=== PATIENT | female | born 1985 | race Caucasian/White ===

== ENCOUNTER 2023-02-09 11:58 | Outpatient (OUT) | payer OTHER, SELFPAY ==
[2023-02-09 15:55] LABS: Basophils Percent Auto 0.4 % (0.2-2.0); Eosinophils Absolute Auto 0.3 10^3/uL (0.0-0.7); Eosinophils Percent Auto 3.1 % (0.9-7.0); Hematocrit 41.8 % (36.0-48.0); Hemoglobin 13.7 g/dL (12.0-16.0); Immature Granulocytes Abs Auto 0.05 10^3/uL (0.00-0.03); Immature Granulocytes Pct Auto 0.6 % (0.0-0.5); Lymphocytes Absolute Auto 3.1 10^3/uL (1.2-3.8); Lymphocytes Percent Auto 33.9 % (20.5-60.0); Mean Corpuscular HGB Conc 32.8 g/dL (29.9-35.2); Mean Corpuscular Hemoglobin 28.8 pg (26.7-34.0); Mean Corpuscular Volume 87.8 fL (81.0-99.0); Mean Platelet Volume 9.4 fL (9.5-13.5); Monocytes Absolute Auto 0.6 10^3/uL (0.3-0.8); Monocytes Percent Auto 6.9 % (1.7-12.0); Neutrophils Percent Auto 55.1 % (43.0-75.0); Platelet Count 391 10^3/uL (150-450); Red Blood Count 4.76 10^6/uL (4.20-5.40); Red Cell Distribution Width 13.1 % (11.0-15.0)
[2023-02-09 16:11] LABS: Partial Thromboplastin Time 27.7 sec (22.3-36.2); Prothrombin Time 9.3 sec (9.0-11.6)
[2023-02-09 16:14] LABS: INR <0.93
[2023-02-09 21:01] LABS: Anion Gap 11.9; BUN Creatinine Ratio 16.4; Carbon Dioxide 26.3 mmol/L (21.0-32.0); Chloride 102 mmol/L (98-107); Estimated GFR (African America >60 (>=60); Estimated GFR (Non-African Ame >60 (>=60); Glucose 70 mg/dL (74-106); Potassium 4.2 mmol/L (3.5-5.1); Sodium 136 mmol/L (136-145)
[2023-02-10 10:48] LABS: Alanine Aminotransferase 37 U/L (14-59); Albumin Globulin Ratio 0.8; Albumin Level 3.3 g/dL (3.4-5.0); Alkaline Phosphatase 105 U/L (46-116); Aspartate Amino Transferase 19 U/L (15-37); Bilirubin Direct <0.1 mg/dL (0.0-0.2); Bilirubin Total 0.1 mg/dL (0.2-1.0); Globulin 3.9 g/dL; Total Protein 7.2 g/dL (6.4-8.2)
== END 2023-02-09 11:59 ==
LOC: PST 11:59
PROVIDERS: Obstetrics & Gynecology
DX: Z01.812 Encounter for preprocedural laboratory examination (principal); N92.1 Excessive and frequent menstruation with irregular cycle; R10.2 Pelvic and perineal pain; N94.6 Dysmenorrhea, unspecified; N93.9 Abnormal uterine and vaginal bleeding, unspecified
CPT/HCPCS: 36415; 80048; 80076; 85025; 85610; 85730

== ENCOUNTER 2023-02-14 11:39 | Outpatient (OUT) | payer OTHER, SELFPAY | END 2023-02-14 11:40 | disposition home or self-care (01) | LOC: LAB 03-09 11:40 | PROVIDERS: Visit Provider Obstetrics & Gynecology | DX: Z01.812 Encounter for preprocedural laboratory examination (principal); N92.1 Excessive and frequent menstruation with irregular cycle; N93.9 Abnormal uterine and vaginal bleeding, unspecified; R10.2 Pelvic and perineal pain; N94.6 Dysmenorrhea, unspecified | CPT/HCPCS: 36415; 86850; 86900; 86901 ==

== ENCOUNTER 2023-02-17 10:45 | Day surgery (SDC) | payer OTHER, SELFPAY ==
[2023-02-09 12:41] VITALS: BP 116/79; PULSE 80; RESP 18; TEMP 36.3; O2SAT 98; BMI 38.9
[2023-02-17] VITALS (11 sets, daily range): BP systolic 126–148; BP diastolic 78–95; PULSE 81–115; RESP 16–24; TEMP 36.2–37.2; O2SAT 92–100; BMI 39.0; BMI 40.9
[2023-02-17 11:18] LABS: Basophils Absolute Auto 0.1 10^3/uL (0.0-0.1); Basophils Percent Auto 0.5 % (0.2-2.0); Eosinophils Absolute Auto 0.2 10^3/uL (0.0-0.7); Hematocrit 40.5 % (36.0-48.0); Hemoglobin 13.3 g/dL (12.0-16.0); Immature Granulocytes Abs Auto 0.04 10^3/uL (0.00-0.03); Immature Granulocytes Pct Auto 0.4 % (0.0-0.5); Lymphocytes Absolute Auto 2.6 10^3/uL (1.2-3.8); Lymphocytes Percent Auto 26.2 % (20.5-60.0); Mean Corpuscular HGB Conc 32.8 g/dL (29.9-35.2); Mean Corpuscular Hemoglobin 28.8 pg (26.7-34.0); Mean Corpuscular Volume 87.7 fL (81.0-99.0); Monocytes Absolute Auto 0.6 10^3/uL (0.3-0.8); Monocytes Percent Auto 5.6 % (1.7-12.0); Neutrophils Absolute Auto 6.4 10^3/uL (1.4-6.5); Neutrophils Percent Auto 65.3 % (43.0-75.0); Platelet Count 373 10^3/uL (150-450); Red Blood Count 4.62 10^6/uL (4.20-5.40); Red Cell Distribution Width 13.1 % (11.0-15.0); White Blood Count 9.9 10^3/uL (4.0-11.0)
[2023-02-17] MEDS: LACTATED RINGER'S SOLUTION 1,000 ML 50 ML IV ×2 (11:28→14:35)
[2023-02-17 11:51] LABS: HCG Quantitative 3 mIU/mL
[2023-02-17] MEDS: CEFAZOLIN SODIUM/DEXTROSE,ISO 2 GM/50 ML PIGGYBACK IV ×2 (12:42→21:48)
--- NOTE | 2023-02-17 16:10 | PC.NURSE ---
RETROFILLED FOR 200ML STERIL WATER INTRAOPERATIVELY
[2023-02-17] MEDS: MEPERIDINE HCL/PF 25 MG/ML VIAL IVP (16:47)
[2023-02-17] MEDS: PROMETHAZINE HCL 25 MG/ML VIAL IV (16:52)
--- NOTE | 2023-02-17 17:15 | PC.NURSE ---
peripad and chux with moderate amount serosanguinous drainage; very restless and states she needs to urinate; placed on bedpan; dressings x4 intact to abdomen with left lateral dressing having scant bloody drainage; area marked;other 3 dressings dry
--- NOTE | 2023-02-17 17:29 | PC.NURSE ---
removed from bedpan with scant bloody urine; clean chux and pad applied; no change in dressing assessment
--- NOTE | 2023-02-17 17:33 | PC.NURSE ---
c/o nausea; no emesis; medicated with Phenergan IV as ordered
--- NOTE | 2023-02-17 18:04 | PC.NURSE ---
peripad dry; no change in initial assessment of 4 abdominal dressings
--- NOTE | 2023-02-17 18:08 | PC.NURSE ---
peripad dry; no change in assessment of 4 dressings on abdomen; resting with even unlabored respirations
--- NOTE | 2023-02-17 18:13 | PC.NURSE ---
4 dressings to abdomen intact with no change in drainage assessment from initial ; peripad dry
[2023-02-17] MEDS: ONDANSETRON PF 4 MG/2 ML VIAL IV (19:40)
[2023-02-17] MEDS: KETOROLAC TROMETHAMINE 30 MG/ML VIAL IVP (22:41)
[2023-02-18 05:00] VITALS: BP 110/72; PULSE 95; RESP 18; TEMP 36.6; O2SAT 95
[2023-02-18 05:06] LABS: Hematocrit 37.1 % (36.0-48.0); Hemoglobin 12.3 g/dL (12.0-16.0); Mean Corpuscular HGB Conc 33.2 g/dL (29.9-35.2); Mean Corpuscular Hemoglobin 29.3 pg (26.7-34.0); Mean Corpuscular Volume 88.3 fL (81.0-99.0); Mean Platelet Volume 9.3 fL (9.5-13.5); Platelet Count 349 10^3/uL (150-450); Red Cell Distribution Width 13.2 % (11.0-15.0); White Blood Count 18.4 10^3/uL (4.0-11.0)
[2023-02-18 05:22] LABS: Estimated GFR (African America >60 (>=60); Estimated GFR (Non-African Ame >60 (>=60)
[2023-02-18] MEDS: CEFAZOLIN SODIUM/DEXTROSE,ISO 2 GM/50 ML PIGGYBACK IV (05:40)
--- NOTE | 2023-02-18 06:12 | PC.NURSE ---
peripad applied; abdominal dressing assessment unchanged; no c/o pain or nausea and vomiting; IV SITE PATENT
--- NOTE | 2023-02-18 06:17 | PC.NURSE ---
PERIPAD DRY; 4 ABDOMINAL SURGICAL DRESSINGS INTACT WITH SCANT BLOODY DRAINAGE ON LEFT LATERAL DRESSINGS; OTHER 3 DRESSINGS DRY; IV SITE WITHOUT REDNESS OR EDEMA
[2023-02-18] MEDS: ONDANSETRON PF 4 MG/2 ML VIAL IV (06:43)
[2023-02-18 12:16] LABS: Basophils Percent Auto 0.2 % (0.2-2.0); Eosinophils Percent Auto 0.2 % (0.9-7.0); Hematocrit 37.4 % (36.0-48.0); Hemoglobin 12.3 g/dL (12.0-16.0); Immature Granulocytes Abs Auto 0.07 10^3/uL (0.00-0.03); Immature Granulocytes Pct Auto 0.4 % (0.0-0.5); Lymphocytes Absolute Auto 3.3 10^3/uL (1.2-3.8); Lymphocytes Percent Auto 20.2 % (20.5-60.0); Mean Corpuscular HGB Conc 32.9 g/dL (29.9-35.2); Mean Corpuscular Hemoglobin 28.9 pg (26.7-34.0); Mean Corpuscular Volume 87.8 fL (81.0-99.0); Monocytes Percent Auto 6.4 % (1.7-12.0); Neutrophils Absolute Auto 11.8 10^3/uL (1.4-6.5); Neutrophils Percent Auto 72.6 % (43.0-75.0); Platelet Count 384 10^3/uL (150-450); Red Blood Count 4.26 10^6/uL (4.20-5.40); Red Cell Distribution Width 13.1 % (11.0-15.0); White Blood Count 16.2 10^3/uL (4.0-11.0)
--- NOTE | 2023-04-01 09:46 | PM.ONB ---
Brief Operative Note Date of procedure: 02/17/23 Pre-op diagnosis: aub, pelvic pain, dysmenorrhea, dyspareunia Post-op diagnosis: same Procedure: NAME OF PROCEDURE: ? Robotic assisted laparoscopic hysterectomy with cystoscopy, bilateral salpingectomy PROCEDURE:? The patient was taken back to the operating room, where she was prepped and draped in the normal sterile fashion after being placed in the dorsal lithotomy position.? Patient?s anesthesia was found to be adequate.? Surgical timeout was performed using two patient identifiers.? SCDs were on and in place.? Two grams of Ancef were given prior to the surgery.? Sterile Navarrete catheter was inserted.? Standard size VCare was secured to the uterine cervix and the surgeon changed gloves.? Attention then was turned to the patient's abdomen, where a supraumbilical incision was then made.? Two S retractors were used to identify the patient?s fascia.? The fascia was then tented up using Brisa clamps and the patient?s fascia was incised sharply.? Patient?s abdomen was identified and entered bluntly.? The patient had the trocar placed and a pneumoperitoneum was obtained.? Approximately 4 liters of CO2 gas was used.? The camera was then placed through the trocar.? At this time, two robot trocars were placed in the patient?s left and right side, two hand widths from the midline, and this was placed under direct visualization.? The patient?s tube on the right side was tented up and the vessel sealer was then used to come across the mesosalpinx, and this was carried down to the uterine ovarian ligament.? The vessel sealer was carried down serially to the broad ligament, to the area of the bladder flap, which was then created anteriorly, and the uterine arteries were skeletonized and sealed using the vessel sealer.? The colpotomy was made using the monopolar cautery on cut, and this was carried circumferentially, posteriorly to anteriorly, until the uterus was amputated.? The specimen was then removed intact through the vagina, without difficulty.? The vagina was then closed using two running V-Loc in a non-lock fashion.? The robot was undocked.? The abdomen was desufflated.? The skin defects were closed using 4-0 Vicryl.? Please note, the fascia was closed using 0 Vicryl.? Sponge, lap and needle counts were correct x2.? Patient was taken to recovery room in stable condition.? The patient was awakened by Anesthesia first.? Patient tolerated procedure well.??Please note left ovarian cystectomy was performed using the vessel sealer Anesthesia: DALTON Surgeon: Charles Marrero Shearing Machine Operator: Mehreen Castro Estimated blood loss (mL): 50 Pathology: none sent Condition: stable Disposition: PACU
== END 2023-02-18 13:55 | disposition home or self-care (01) ==
LOC: SURGOUT 11:34 → MS 18:04
PROVIDERS: Visit Provider Obstetrics & Gynecology
PROC: (CPT 840; principal; 2023-02-17 12:00)
DX: N93.9 Abnormal uterine and vaginal bleeding, unspecified (principal); N92.1 Excessive and frequent menstruation with irregular cycle; R10.2 Pelvic and perineal pain; N94.6 Dysmenorrhea, unspecified; N94.10 Unspecified dyspareunia
CPT/HCPCS: 58571; 36415; 82565; 84520; 84702; 85025; 85027; 86850; 86900; 86901; 88307; 94761; 96374; 96375; J1170

== ENCOUNTER 2023-02-26 11:17 | Emergency (ER) | payer OTHER, SELFPAY ==
[2023-02-26 11:23] VITALS: BP 141/105; PULSE 96; RESP 20; TEMP 36.8; O2SAT 96; BMI 39.1
--- NOTE | 2023-02-26 11:52 | CT_ITS ---
The [address] [address] Patient Name: COY SAMUEL MRN: [id number] date: 1985 Sex: F Assigned Patient Location: ER Current Patient Location: Accession/Order Number: [id number] Exam Date: 02/26/2023 12:22 Report Date: 02/26/2023 13:32 At the request of: GLENN JIN Procedure: CT abdomen pelvis w con EXAM: CT abdomen pelvis w con HISTORY: Pain, hysterectomy nine days ago. Nausea, vomiting, and diarrhea. COMPARISON: 10/21/2022. TECHNIQUE: Axial CT imaging was performed through the abdomen and pelvis with intravenous contrast. Multiplanar reformats were performed. Dose reduction techniques were achieved by using automated exposure control and/or adjustment of mA and/or kV according to patient size and/or use of iterative reconstruction technique. FINDINGS: Lung bases: Lung bases are clear. No pleural effusion. GI upper: Unremarkable. Liver: Hepatomegaly with steatosis. Normal contour. The right hepatic lobe measures 19.4 cm in greatest craniocaudal dimension. Gallbladder: No significant abnormality. No cholelithiasis. Biliary system: No intra or extrahepatic biliary ductal dilatation. Spleen: Normal size. Pancreas: Unremarkable. Adrenal glands: Normal adrenal glands. Kidneys/ureters: Normal contours. No hydronephrosis or ureterolithiasis. No nephrolithiasis. Vessels: No aneurysm. Lymph Nodes: No lymphadenopathy. Small bowel: No wall thickening or dilatation. Colon: No wall thickening or dilatation. Appendix: Appendectomy. Peritoneal cavity: No free fluid or peritoneum. Lower : Hysterectomy. Minimal stranding within the hysterectomy bed is likely postsurgical in nature. No evidence of organized fluid collection within the surgical bed. Bones: No acute bony abnormality. Soft tissues: No acute finding. Small, fat-containing periumbilical hernia, unchanged. Additional findings: None. IMPRESSION: 1. Minimal stranding within the hysterectomy bed without evidence of fluid collection, compatible with postsurgical change. No postsurgical complication is evident. 2. Hepatomegaly with steatosis. Electronically authenticated by: BE SINCLAIR Date: 02/26/2023 13:32
--- NOTE | 2023-02-26 11:55 | ED.ABDPAIN1 ---
HPI - Abdominal Pain General Chief Complaint: Abdominal Pain Stated Complaint: EXTREME ABDOMINAL PAIN/RECENT HYSTERECTOMY Time Seen by Provider: 02/26/23 11:25 History of Present Illness HPI narrative: 37-year-old female presents for abdominal pain. It's generalized. She is postop day #9 from hysterectomy. She's had these symptoms for several days and it seems to be getting worse. She feels like her bowels moving things through. She'll eat minimal food and she'll feel for the next day she'll vomit up that same food she ate the previous day. No fever. Related Data Home Medications Medication Instructions Recorded Confirmed albuterol sulfate 2.5 mg/3 mL 2.5 mg inhalation Q8H PRN 02/09/23 02/09/23 (0.083 %) solution for nebulization bronchospasm hydroxyzine pamoate 50 mg capsule 50 mg PO BID 02/09/23 02/17/23 budesonide-formoterol HFA 160 2 puff inhalation Q12H 02/17/23 02/17/23 mcg-4.5 mcg/actuation aerosol inhaler (Symbicort) ibuprofen 800 mg tablet 800 mg PO Q8H PRN fever or pain 02/26/23 02/26/23 metronidazole 500 mg tablet 500 mg PO Q12H 02/26/23 02/26/23 oxycodone-acetaminophen 5 mg-325 1 tab PO Q6H PRN pain 02/26/23 02/26/23 mg tablet Previous Rx's Medication Instructions Recorded metoclopramide HCl 10 mg tablet 10 mg PO Q6H PRN nausea and 02/26/23 (Reglan) vomiting #14 tabs ondansetron HCl 4 mg tablet 4 mg PO DAILY PRN nausea and 02/26/23 vomiting 5 days #20 tabs Allergies Allergy/AdvReac Type Severity Reaction Status Date / Time fentanyl Allergy hallucinati Verified 02/09/23 12:38 on Review of Systems ROS Narrative A ten point review of systems is negative except as noted above. [facility] Medical History (Updated 02/26/23 @ 13:51 by Barry Moyer MD) Surgical History (Updated 02/09/23 @ 12:49 by Sherita Jean NP) Family History (Updated 02/09/23 @ 12:44 by Sherita Jean NP) Other Family history of COPD (chronic obstructive pulmonary disease) Family history of DVT Family history of breast cancer Family history of heart disease Family history of hypertension Family history of myocardial infarction Family history of ovarian cancer Family history of stroke Family history of uterine cancer Social History (Updated 02/09/23 @ 12:41 by Sherita Jean NP) Within the past year, how often did you have a drink containing alcohol: monthly or less Smoking status: Light tobacco smoker Non-prescribed substance use: cannabis (any form) Previous occupational history: [employer] Highest level of school completed/degree received: high school graduate Gender Identity: female Exam Narrative Exam Narrative: Nurses note and vital signs reviewed and patient is not hypoxic. General: The patient appears in no apparent respiratory distress. Patient is resting comfortably on cart. Skin: Warm, dry, no pallor noted. There is no rash noted. Head: Normocephalic, atraumatic Eye: Normal conjunctiva, no drainage Ears, Nose, Mouth, and Throat: oral mucosa is moist. Nares patent. Cardiovascular: Regular Rate and Rhythm Respiratory: Patient is in no distress, no accessory muscle use, lungs are clear to auscultation, no wheezing, rales or rhonchi Back: non-tender GI: surgical wounds have Steri-Strips. They're healing well. No surrounding erythema or dehiscence. Mild diffuse tenderness present. Musculoskeletal: The patient has no evidence of calf tenderness, no pitting edema, symmetrical pulses noted bilaterally Neurological: A&O, normal speech Psychiatric: Cooperative Constitutional Vital Signs - 24 hr 02/26/23 11:23 Temperature 98.2 F Pulse Rate [Monitor] 96 H Respiratory Rate 20 Blood Pressure [Right Arm] 141/105 H Pulse Oximetry 96 Oxygen Delivery Method Room Air Course Vital Signs Vital signs: Vital Signs Temperature 98.2 F 02/26/23 11:23 Pulse Rate 96 H 02/26/23 11:23 Respiratory Rate 20 02/26/23 11:23 Blood Pressure 141/105 H 02/26/23 11:23 Pulse Oximetry 96 02/26/23 11:23 Oxygen Delivery Method Room Air 02/26/23 11:23 Temperature 98.2 F 02/26/23 11:23 Pulse Rate 96 H 02/26/23 11:23 Respiratory Rate 20 02/26/23 11:23 Blood Pressure 141/105 H 02/26/23 11:23 Pulse Oximetry 96 02/26/23 11:23 Oxygen Delivery Method Room Air 02/26/23 11:23 MDM - Abdominal Pain MDM Narrative Medical decision making narrative: the patient's workup including CAT scan is negative. She is prescribed Reglan and Zofran and she'll follow-up with her doctor if needed. No evidence of bowel obstruction or ileus. Treatment diagnosis and follow-up were discussed with the patient. Differential Diagnosis Differential diagnosis: Likely abdominal pain, constipation, diverticulitis, pancreatitis and small bowel obstruction Lab Data Attestation: I reviewed the patient's lab results. Labs: Lab Results 02/26/23 Range/Units 12:02 WBC 10.1 (4.0-11.0) 10^3/uL RBC 4.39 (4.20-5.40) 10^6/uL Hgb 12.9 (12.0-16.0) g/dL Hct 38.8 (36.0-48.0) % MCV 88.4 (81.0-99.0) fL MCH 29.4 (26.7-34.0) pg MCHC 33.2 (29.9-35.2) g/dL RDW 13.1 (11.0-15.0) % Plt Count 378 (150-450) 10^3/uL MPV 9.4 L (9.5-13.5) fL Neut % (Auto) 64.8 (43.0-75.0) % Lymph % (Auto) 26.6 (20.5-60.0) % Sharp % (Auto) 5.4 (1.7-12.0) % Eos % (Auto) 2.4 (0.9-7.0) % Baso % (Auto) 0.5 (0.2-2.0) % Neut # (Auto) 6.6 H (1.4-6.5) 10^3/uL Lymph # (Auto) 2.7 (1.2-3.8) 10^3/uL Sharp # (Auto) 0.6 (0.3-0.8) 10^3/uL Eos # (Auto) 0.2 (0.0-0.7) 10^3/uL Baso # (Auto) 0.1 (0.0-0.1) 10^3/uL Abs Immat Gran (auto) 0.03 (0.00-0.03) 10^3/uL Imm/Tot Granulo (auto) 0.3 (0.0-0.5) % Sodium 138 (136-145) mmol/L Potassium 4.1 (3.5-5.1) mmol/L Chloride 102 (98-107) mmol/L Carbon Dioxide 27.1 (21.0-32.0) mmol/L Anion Gap 13.0 BUN 9.0 (7.0-18.0) mg/dL Creatinine 0.62 (0.55-1.02) mg/dL Est GFR ( Amer) >60 (>=60) Est GFR (Non-Af Amer) >60 (>=60) BUN/Creatinine Ratio 14.5 Glucose 95 (74-106) mg/dL Calcium 9.0 (8.5-10.1) mg/dL Total Bilirubin 0.2 (0.2-1.0) mg/dL AST 13 L (15-37) U/L ALT 28 (14-59) U/L Alkaline Phosphatase 87 (46-116) U/L Total Protein 7.3 (6.4-8.2) g/dL Albumin 3.2 L (3.4-5.0) g/dL Globulin 4.1 g/dL Albumin/Globulin Ratio 0.8 Lipase 48.0 L (73.0-393.0) U/L Urine Color Lt. yellow (YELLOW) Urine Clarity Clear (CLEAR) Urine pH 7.5 (5.0-9.0) Ur Specific Adams 1.015 (1.005-1.025) Urine Protein Negative (NEG/TRACE) mg/dL Urine Glucose (UA) Negative (NEGATIVE) mg/dL Urine Ketones Negative (NEGATIVE) mg/dL Urine Occult Blood Negative (NEGATIVE) Urine Nitrite Negative (NEGATIVE) Urine Bilirubin Negative (NEGATIVE) Urine Urobilinogen 0.2 (0.2-1.0) EU/dL Ur Leukocyte Esterase Negative (NEGATIVE) Discharge Plan Discharge Chief Complaint: Abdominal Pain Clinical Impression: Abdominal pain Patient Disposition: Home, Self-Care Time of Disposition Decision: 13:49 Mode of Transportation: Private Vehicle Prescriptions / Home Meds: New metoclopramide HCl [Reglan] 10 mg tablet 10 mg PO Q6H PRN (Reason: nausea and vomiting) Qty: 14 0RF ondansetron HCl 4 mg tablet 4 mg PO DAILY PRN (Reason: nausea and vomiting) 5 Days Qty: 20 0RF No Action hydroxyzine pamoate 50 mg capsule 50 mg PO BID albuterol sulfate 2.5 mg /3 mL (0.083 %) solution for nebulization 2.5 mg inhalation Q8H PRN (Reason: bronchospasm) budesonide-formoterol [Symbicort] 160-4.5 mcg/actuation HFA aerosol inhaler 2 puff INHALATION Q12H oxycodone-acetaminophen 5-325 mg tablet 1 tab PO Q6H PRN (Reason: pain) metronidazole 500 mg tablet 500 mg PO Q12H ibuprofen 800 mg tablet 800 mg PO Q8H PRN (Reason: fever or pain) Instructions: Abdominal Pain (ED) Stand Alone Forms: Portal Instructions Referrals: Physician,Non-Staff, MD [Primary Care Provider] - 1 week
[2023-02-26] MEDS: ONDANSETRON PF 4 MG/2 ML VIAL IV (12:10)
[2023-02-26] MEDS: 0.9 % SODIUM CHLORIDE 1,000 ML 100 ML IV (12:10)
[2023-02-26 12:46] LABS: Basophils Absolute Auto 0.1 10^3/uL (0.0-0.1); Basophils Percent Auto 0.5 % (0.2-2.0); Bilirubin Urine NEGATIVE (NEGATIVE); Blood Urine NEGATIVE (NEGATIVE); Clarity Urine CLEAR (CLEAR); Color Urine LT. YELLOW (YELLOW); Eosinophils Absolute Auto 0.2 10^3/uL (0.0-0.7); Eosinophils Percent Auto 2.4 % (0.9-7.0); Glucose Urine UA NEGATIVE (NEGATIVE); Hematocrit 38.8 % (36.0-48.0); Hemoglobin 12.9 g/dL (12.0-16.0); Immature Granulocytes Abs Auto 0.03 10^3/uL (0.00-0.03); Immature Granulocytes Pct Auto 0.3 % (0.0-0.5); Ketones Urine NEGATIVE (NEGATIVE); Leukocyte Esterase Urine NEGATIVE (NEGATIVE); Lymphocytes Absolute Auto 2.7 10^3/uL (1.2-3.8); Lymphocytes Percent Auto 26.6 % (20.5-60.0); Mean Corpuscular HGB Conc 33.2 g/dL (29.9-35.2); Mean Corpuscular Hemoglobin 29.4 pg (26.7-34.0); Mean Corpuscular Volume 88.4 fL (81.0-99.0); Mean Platelet Volume 9.4 fL (9.5-13.5); Monocytes Absolute Auto 0.6 10^3/uL (0.3-0.8); Monocytes Percent Auto 5.4 % (1.7-12.0); Neutrophils Absolute Auto 6.6 10^3/uL (1.4-6.5); Neutrophils Percent Auto 64.8 % (43.0-75.0); Nitrite Urine NEGATIVE (NEGATIVE); Platelet Count 378 10^3/uL (150-450); Protein Urine NEGATIVE (NEG/TRACE); Red Blood Count 4.39 10^6/uL (4.20-5.40); Red Cell Distribution Width 13.1 % (11.0-15.0); Specific Gravity Urine 1.015 (1.005-1.025); Urobilinogen Urine 0.2 EU/dL (0.2-1.0); White Blood Count 10.1 10^3/uL (4.0-11.0); pH Urine 7.5 (5.0-9.0)
[2023-02-26 12:48] LABS: Urine Microscopic Indicated NO
[2023-02-26 13:06] LABS: Alanine Aminotransferase 28 U/L (14-59); Albumin Globulin Ratio 0.8; Albumin Level 3.2 g/dL (3.4-5.0); Alkaline Phosphatase 87 U/L (46-116); Aspartate Amino Transferase 13 U/L (15-37); BUN Creatinine Ratio 14.5; Bilirubin Total 0.2 mg/dL (0.2-1.0); Carbon Dioxide 27.1 mmol/L (21.0-32.0); Chloride 102 mmol/L (98-107); Estimated GFR (African America >60 (>=60); Estimated GFR (Non-African Ame >60 (>=60); Globulin 4.1 g/dL; Glucose 95 mg/dL (74-106); Potassium 4.1 mmol/L (3.5-5.1); Sodium 138 mmol/L (136-145); Total Protein 7.3 g/dL (6.4-8.2)
[2023-02-26] MEDS: KETOROLAC TROMETHAMINE 30 MG/ML VIAL IVP (13:28)
== END 2023-02-26 14:02 | disposition home or self-care (01) ==
PROVIDERS: Emergency Provider Emergency Medicine
DX: R10.9 Unspecified abdominal pain (principal); Z90.710 Acquired absence of both cervix and uterus; Z79.899 Other long term (current) drug therapy; F17.210 Nicotine dependence, cigarettes, uncomplicated; F12.90 Cannabis use, unspecified, uncomplicated
CPT/HCPCS: 36415; 74177; 80053; 81003; 83690; 85025; 96361; 96374; 96375; 99284; Q9967

== ENCOUNTER 2023-05-12 14:40 | Emergency (ER) | payer SELFPAY ==
[2023-05-12 14:46] VITALS: BP 134/113; PULSE 95; RESP 20; TEMP 36.7; O2SAT 99; BMI 36.9
--- NOTE | 2023-05-12 14:54 | ECG_ITS ---
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
--- NOTE | 2023-05-12 14:59 | ED_ITS ---
Documented by User: PERCY Alfaro 05/12/23 17:04 HPI - Chest Pain General Chief Complaint: Chest Pain Stated Complaint: SEVERE HEART/CHEST PAIN Time Seen by Provider: 05/12/23 14:54 History of Present Illness HPI narrative: patient is a 37-year-old female who presents to the emergency department for the evaluation of sternal chest pain that began at 7 AM, approximately eight hours ago. She states the pain radiates to her left arm. She states the pain does come and go. She feels associated lightheadedness. She has had no fevers, chills. She states she has chronic obstructive pulmonary disease and uses an inhaler at home, she has a chronic cough as a result but has had no other significant upper respiratory symptoms. She denies abdominal pain, nausea, vomiting. She has had no unilateral extremity swelling. She had a hysterectomy three months ago. She states she quit smoking one month ago. she denies any history of other heart or lung problems, no history of diabetes. She does not take any medications at home except her inhaler. Risk Factors Coronary artery disease risk factors: smoking history Pulmonary embolism risk factors: morbid obesity Related Data Home Medications Medication Instructions Recorded Confirmed budesonide-formoterol HFA 160 2 puff inhalation Q12H 02/17/23 05/12/23 mcg-4.5 mcg/actuation aerosol inhaler (Symbicort) Previous Rx's Medication Instructions Recorded methocarbamol 750 mg tablet 750 mg PO TID PRN pain #20 tabs 05/12/23 sucralfate 1 gram tablet (Carafate) 1 g PO Q6H PRN abdominal pain #12 05/12/23 tabs Allergies Allergy/AdvReac Type Severity Reaction Status Date / Time fentanyl Allergy hallucinati Verified 02/09/23 12:38 on Review of Systems ROS Constitutional Denies: fever or chills Ears, nose, mouth, and throat Denies: throat pain Cardiovascular Reports: chest pain Respiratory Reports: cough; Denies: shortness of breath Gastrointestinal Denies: nausea or vomiting Musculoskeletal Denies: back pain Integumentary/Breast Denies: rash Neurological Denies: headache Endocrine Denies: excessive urination Allergic/Immunologic Denies: hives PFSH [facility] Medical History (Updated 05/12/23 @ 17:04 by PERCY Alfaro) Surgical History (Updated 02/09/23 @ 12:49 by Sherita Jean NP) Family History (Updated 02/09/23 @ 12:44 by Sherita Jean NP) Other Family history of COPD (chronic obstructive pulmonary disease) Family history of DVT Family history of breast cancer Family history of heart disease Family history of hypertension Family history of myocardial infarction Family history of ovarian cancer Family history of stroke Family history of uterine cancer Social History Within the past year, how often did you have a drink containing alcohol: monthly or less Smoking status: Former smoker Non-prescribed substance use: cannabis (any form) Previous occupational history: [employer] Highest level of school completed/degree received: high school graduate Gender Identity: female Exam Narrative Exam Narrative: Gen.: Awake, alert, in no distress Head: Normocephalic, atraumatic ENT: Moist mucous membranes Respiratory: No respiratory distress, lungs clear bilaterally Cardio: Regular rate and rhythm Gastrointestinal: Abdomen is soft, nondistended and nontender to palpation Extremities: Moves extremities equally, pedal edema Psych: Normal mood and affect Neuro: No focal neuro deficit Skin: Warm, dry, intact Constitutional Vital Signs, click to edit/add: Last Vital Signs Temp 98.1 F 05/12/23 14:46 Pulse 75 05/12/23 17:18 Resp 16 05/12/23 17:18 BP 117/78 05/12/23 17:18 Pulse Ox 97 05/12/23 17:18 O2 Del Method Room Air 05/12/23 17:18 Course Vital Signs Vital signs: Vital Signs Temperature 98.1 F 05/12/23 14:46 Pulse Rate 95 H 05/12/23 14:46 Respiratory Rate 20 05/12/23 14:46 Blood Pressure 134/113 H 05/12/23 14:46 Pulse Oximetry 99 05/12/23 14:46 Oxygen Delivery Method Room Air 05/12/23 14:46 Temperature 98.1 F 05/12/23 14:46 Pulse Rate 75 05/12/23 17:18 Respiratory Rate 16 05/12/23 17:18 Blood Pressure 117/78 05/12/23 17:18 Pulse Oximetry 97 05/12/23 17:18 Oxygen Delivery Method Room Air 05/12/23 17:18 MDM - Chest Pain MDM Narrative Medical decision making narrative: patient was treated with aspirin, morphine, Zofran, IV fluids. Her lab studies including d-dimer, troponin and BNP are within normal limits. Pain has been present since 7 AM this morning. Patient is visibly anxious although she is confident that her symptoms do not represent anxiety. She was given an additional gastrointestinal cocktail for comfort. Her heart score is a three for risk factors of clinical history, recent smoking, morbid obesity and unknown family history. She is reevaluated by attending physician prior to discharge, chest x-rays unremarkable and vital signs are stable. She will be discharged home with Carafate, muscle relaxant area and follow-up with PCP and return to the Emergency Room if symptoms change or worsen. Medical Records Data Attestation: I reviewed the patient's medical records. Lab Data Attestation: I reviewed the patient's lab results. Labs: Lab Results 05/12/23 Range/Units 15:00 WBC 10.4 (4.0-11.0) 10^3/uL RBC 4.28 (4.20-5.40) 10^6/uL Hgb 12.4 (12.0-16.0) g/dL Hct 38.0 (36.0-48.0) % MCV 88.8 (81.0-99.0) fL MCH 29.0 (26.7-34.0) pg MCHC 32.6 (29.9-35.2) g/dL RDW 12.6 (11.0-15.0) % Plt Count 345 (150-450) 10^3/uL MPV 9.5 (9.5-13.5) fL Neut % (Auto) 61.5 (43.0-75.0) % Lymph % (Auto) 29.0 (20.5-60.0) % Warrick % (Auto) 6.3 (1.7-12.0) % Eos % (Auto) 2.2 (0.9-7.0) % Baso % (Auto) 0.6 (0.2-2.0) % Neut # (Auto) 6.4 (1.4-6.5) 10^3/uL Lymph # (Auto) 3.0 (1.2-3.8) 10^3/uL Warrick # (Auto) 0.7 (0.3-0.8) 10^3/uL Eos # (Auto) 0.2 (0.0-0.7) 10^3/uL Baso # (Auto) 0.1 (0.0-0.1) 10^3/uL Abs Immat Gran (auto) 0.04 H (0.00-0.03) 10^3/uL Imm/Tot Granulo (auto) 0.4 (0.0-0.5) % PT 9.7 (9.0-11.6) sec INR <0.93 APTT 27.5 (22.3-36.2) sec D-Dimer 0.48 (<=0.59) mg/L FEU Sodium 138 (136-145) mmol/L Potassium 3.5 (3.5-5.1) mmol/L Chloride 105 (98-107) mmol/L Carbon Dioxide 27.7 (21.0-32.0) mmol/L Anion Gap 8.8 BUN 9.0 (7.0-18.0) mg/dL Creatinine 0.76 (0.55-1.02) mg/dL Est GFR ( Amer) >60 (>=60) Est GFR (Non-Af Amer) >60 (>=60) BUN/Creatinine Ratio 11.8 Glucose 108 H (74-106) mg/dL Calcium 8.4 L (8.5-10.1) mg/dL Total Bilirubin 0.1 L (0.2-1.0) mg/dL AST 15 (15-37) U/L ALT 31 (14-59) U/L Alkaline Phosphatase 79 (46-116) U/L Troponin I High Sens 4.5 (4.0-51.3) pg/mL NT-Pro-B Natriuret Pep 61.0 (<=450.0) pg/mL Total Protein 6.6 (6.4-8.2) g/dL Albumin 3.2 L (3.4-5.0) g/dL Globulin 3.4 g/dL Albumin/Globulin Ratio 0.9 Lipase 41.0 L (73.0-393.0) U/L Serum HCG, Qual Negative (NEGATIVE) Imaging Data Chest x-ray: Attestation: I have reviewed the pertinent imaging results. ECG Data Attestation: I personally reviewed and interpreted this ECG as follows: (normal sinus rhythm at a rate of eighty-three, no acute ST elevation or ectopy. EKG reviewed by attending physician) ECG interpretation date: 05/12/23 ECG interpretation time: 15:09 Heart Score History: Moderatly Suspicious ECG: Normal Age: <45 years Risk Factors: >3 Risk Factors/ HX of CAD:2 Troponin: <Normal Limit Total Heart Score Recommendations & Risks:: 3 Discharge Plan Discharge Chief Complaint: Chest Pain Clinical Impression: Chest pain Patient Disposition: Home, Self-Care Time of Disposition Decision: 17:03 Condition: Good Prescriptions / Home Meds: New sucralfate [Carafate] 1 gram tablet 1 g PO Q6H PRN (Reason: abdominal pain) Qty: 12 0RF methocarbamol 750 mg tablet 750 mg PO TID PRN (Reason: pain) Qty: 20 0RF No Action budesonide-formoterol [Symbicort] 160-4.5 mcg/actuation HFA aerosol inhaler 2 puff INHALATION Q12H Instructions: Noncardiac Chest Pain (ED) Stand Alone Forms: Portal Instructions Referrals: Physician,Non-Staff, [Primary Care Provider] - 1 week Discharge Date/Time: 05/12/23 17:21 Documented by User: Pushpa Diggs MD 05/12/23 19:15 HPI - Chest Pain General Chief Complaint: Chest Pain Stated Complaint: SEVERE HEART/CHEST PAIN Time Seen by Provider: 05/12/23 14:54 Related Data Home Medications Medication Instructions Recorded Confirmed budesonide-formoterol HFA 160 2 puff inhalation Q12H 02/17/23 05/12/23 mcg-4.5 mcg/actuation aerosol inhaler (Symbicort) Previous Rx's Medication Instructions Recorded methocarbamol 750 mg tablet 750 mg PO TID PRN pain #20 tabs 05/12/23 sucralfate 1 gram tablet (Carafate) 1 g PO Q6H PRN abdominal pain #12 05/12/23 tabs Allergies Allergy/AdvReac Type Severity Reaction Status Date / Time fentanyl Allergy hallucinati Verified 02/09/23 12:38 on PFSH PFSH Medical History (Updated 05/12/23 @ 17:04 by PERCY Alfaro) Surgical History (Updated 02/09/23 @ 12:49 by Sherita Jean NP) Family History (Updated 02/09/23 @ 12:44 by Sherita Jean NP) Other Family history of COPD (chronic obstructive pulmonary disease) Family history of DVT Family history of breast cancer Family history of heart disease Family history of hypertension Family history of myocardial infarction Family history of ovarian cancer Family history of stroke Family history of uterine cancer Social History Within the past year, how often did you have a drink containing alcohol: monthly or less Smoking status: Former smoker Non-prescribed substance use: cannabis (any form) Previous occupational history: [employer] Highest level of school completed/degree received: high school graduate Gender Identity: female Exam Constitutional Vital Signs, click to edit/add: Last Vital Signs Temp 98.1 F 05/12/23 14:46 Pulse 75 05/12/23 17:18 Resp 16 05/12/23 17:18 BP 117/78 05/12/23 17:18 Pulse Ox 97 05/12/23 17:18 O2 Del Method Room Air 05/12/23 17:18 Course Vital Signs Vital signs: Vital Signs Temperature 98.1 F 05/12/23 14:46 Pulse Rate 95 H 05/12/23 14:46 Respiratory Rate 20 05/12/23 14:46 Blood Pressure 134/113 H 05/12/23 14:46 Pulse Oximetry 99 05/12/23 14:46 Oxygen Delivery Method Room Air 05/12/23 14:46 Temperature 98.1 F 05/12/23 14:46 Pulse Rate 75 05/12/23 17:18 Respiratory Rate 16 05/12/23 17:18 Blood Pressure 117/78 05/12/23 17:18 Pulse Oximetry 97 05/12/23 17:18 Oxygen Delivery Method Room Air 05/12/23 17:18 MDM - Chest Pain MDM Narrative Medical decision making narrative: patient was treated with aspirin, morphine, Zofran, IV fluids. Her lab studies including d-dimer, troponin and BNP are within normal limits. Pain has been present since 7 AM this morning. Patient is visibly anxious although she is confident that her symptoms do not represent anxiety. She was given an additional gastrointestinal cocktail for comfort. Her heart score is a three for risk factors of clinical history, recent smoking, morbid obesity and unknown family history. She is reevaluated by attending physician prior to discharge, chest x-rays unremarkable and vital signs are stable. She will be discharged home with Carafate, muscle relaxant area and follow-up with PCP and return to the Emergency Room if symptoms change or worsen. Attending physician attestation I have seen and evaluated this patient. I have reviewed the mid-level provider?s documentation medical decision making and treatment plan. I agree with the mid- level provider?s assessment, and plan. Lab Data Labs: Lab Results 05/12/23 Range/Units 15:00 WBC 10.4 (4.0-11.0) 10^3/uL RBC 4.28 (4.20-5.40) 10^6/uL Hgb 12.4 (12.0-16.0) g/dL Hct 38.0 (36.0-48.0) % MCV 88.8 (81.0-99.0) fL MCH 29.0 (26.7-34.0) pg MCHC 32.6 (29.9-35.2) g/dL RDW 12.6 (11.0-15.0) % Plt Count 345 (150-450) 10^3/uL MPV 9.5 (9.5-13.5) fL Neut % (Auto) 61.5 (43.0-75.0) % Lymph % (Auto) 29.0 (20.5-60.0) % Warrick % (Auto) 6.3 (1.7-12.0) % Eos % (Auto) 2.2 (0.9-7.0) % Baso % (Auto) 0.6 (0.2-2.0) % Neut # (Auto) 6.4 (1.4-6.5) 10^3/uL Lymph # (Auto) 3.0 (1.2-3.8) 10^3/uL Warrick # (Auto) 0.7 (0.3-0.8) 10^3/uL Eos # (Auto) 0.2 (0.0-0.7) 10^3/uL Baso # (Auto) 0.1 (0.0-0.1) 10^3/uL Abs Immat Gran (auto) 0.04 H (0.00-0.03) 10^3/uL Imm/Tot Granulo (auto) 0.4 (0.0-0.5) % PT 9.7 (9.0-11.6) sec INR <0.93 APTT 27.5 (22.3-36.2) sec D-Dimer 0.48 (<=0.59) mg/L FEU Sodium 138 (136-145) mmol/L Potassium 3.5 (3.5-5.1) mmol/L Chloride 105 (98-107) mmol/L Carbon Dioxide 27.7 (21.0-32.0) mmol/L Anion Gap 8.8 BUN 9.0 (7.0-18.0) mg/dL Creatinine 0.76 (0.55-1.02) mg/dL Est GFR ( Amer) >60 (>=60) Est GFR (Non-Af Amer) >60 (>=60) BUN/Creatinine Ratio 11.8 Glucose 108 H (74-106) mg/dL Calcium 8.4 L (8.5-10.1) mg/dL Total Bilirubin 0.1 L (0.2-1.0) mg/dL AST 15 (15-37) U/L ALT 31 (14-59) U/L Alkaline Phosphatase 79 (46-116) U/L Troponin I High Sens 4.5 (4.0-51.3) pg/mL NT-Pro-B Natriuret Pep 61.0 (<=450.0) pg/mL Total Protein 6.6 (6.4-8.2) g/dL Albumin 3.2 L (3.4-5.0) g/dL Globulin 3.4 g/dL Albumin/Globulin Ratio 0.9 Lipase 41.0 L (73.0-393.0) U/L Serum HCG, Qual Negative (NEGATIVE) Heart Score Total Heart Score Recommendations & Risks:: 3 Discharge Plan Discharge Chief Complaint: Chest Pain Clinical Impression: Chest pain Patient Disposition: Home, Self-Care Time of Disposition Decision: 17:03 Condition: Good Prescriptions / Home Meds: New sucralfate [Carafate] 1 gram tablet 1 g PO Q6H PRN (Reason: abdominal pain) Qty: 12 0RF methocarbamol 750 mg tablet 750 mg PO TID PRN (Reason: pain) Qty: 20 0RF No Action budesonide-formoterol [Symbicort] 160-4.5 mcg/actuation HFA aerosol inhaler 2 puff INHALATION Q12H Instructions: Noncardiac Chest Pain (ED) Stand Alone Forms: Portal Instructions Referrals: Physician,Non-Staff, MD [Primary Care Provider] - 1 week Discharge Date/Time: 05/12/23 17:21
[2023-05-12 15:05] VITALS: PULSE 84
[2023-05-12 15:09] LABS: Basophils Absolute Auto 0.1 10^3/uL (0.0-0.1); Basophils Percent Auto 0.6 % (0.2-2.0); Eosinophils Absolute Auto 0.2 10^3/uL (0.0-0.7); Eosinophils Percent Auto 2.2 % (0.9-7.0); Hemoglobin 12.4 g/dL (12.0-16.0); Immature Granulocytes Abs Auto 0.04 10^3/uL (0.00-0.03); Immature Granulocytes Pct Auto 0.4 % (0.0-0.5); Mean Corpuscular HGB Conc 32.6 g/dL (29.9-35.2); Mean Corpuscular Volume 88.8 fL (81.0-99.0); Mean Platelet Volume 9.5 fL (9.5-13.5); Monocytes Absolute Auto 0.7 10^3/uL (0.3-0.8); Monocytes Percent Auto 6.3 % (1.7-12.0); Neutrophils Absolute Auto 6.4 10^3/uL (1.4-6.5); Neutrophils Percent Auto 61.5 % (43.0-75.0); Platelet Count 345 10^3/uL (150-450); Red Blood Count 4.28 10^6/uL (4.20-5.40); Red Cell Distribution Width 12.6 % (11.0-15.0); White Blood Count 10.4 10^3/uL (4.0-11.0)
[2023-05-12] MEDS: 0.9 % SODIUM CHLORIDE 1,000 ML 1000 ML IV (15:11)
[2023-05-12] MEDS: ASPIRIN 81 MG TAB.CHEW 162 MG PO (15:11)
[2023-05-12] MEDS: MORPHINE SULFATE 4 MG/ML VIAL IV (15:11)
[2023-05-12] MEDS: ONDANSETRON PF 4 MG/2 ML VIAL IV (15:11)
[2023-05-12 15:29] LABS: Partial Thromboplastin Time 27.5 sec (22.3-36.2); Prothrombin Time 9.7 sec (9.0-11.6)
[2023-05-12 15:32] LABS: INR <0.93
[2023-05-12 15:33] LABS: D Dimer 0.48 mg/L FEU (<=0.59)
[2023-05-12 15:37] LABS: Alanine Aminotransferase 31 U/L (14-59); Albumin Globulin Ratio 0.9; Albumin Level 3.2 g/dL (3.4-5.0); Alkaline Phosphatase 79 U/L (46-116); Anion Gap 8.8; Aspartate Amino Transferase 15 U/L (15-37); BUN Creatinine Ratio 11.8; Bilirubin Total 0.1 mg/dL (0.2-1.0); Calcium 8.4 mg/dL (8.5-10.1); Carbon Dioxide 27.7 mmol/L (21.0-32.0); Chloride 105 mmol/L (98-107); Estimated GFR (African America >60 (>=60); Estimated GFR (Non-African Ame >60 (>=60); Globulin 3.4 g/dL; Glucose 108 mg/dL (74-106); Potassium 3.5 mmol/L (3.5-5.1); Sodium 138 mmol/L (136-145); Total Protein 6.6 g/dL (6.4-8.2); Troponin I High Sensitivity 4.5 pg/mL (4.0-51.3)
--- NOTE | 2023-05-12 15:39 | XR_ITS ---
The [address] [address] Patient Name: COY SAMUEL MRN: [id number] date: 1985 Sex: F Assigned Patient Location: ER Current Patient Location: ER Accession/Order Number: [id number] Exam Date: 05/12/2023 15:50 Report Date: 05/12/2023 16:25 At the request of: KEVIN CAMARENA Procedure: XR chest 1V ONE-VIEW CHEST RADIOGRAPH, 05/12/2023 3:50 PM EDT COMPARISON: Chest, 01/11/[address] scan of the chest, 09/06/2022. CLINICAL HISTORY: chest pain FINDINGS: No acute cardiopulmonary disease. No pulmonary edema, pneumothorax, or pleural effusion. 1.3 cm soft tissue nodule again seen in the left upper lobe overlying the left anterior first rib and medial clavicle. Normal heart size. No acute osseous abnormality. XR/XR chest 1V IMPRESSION: 1. No acute abnormality identified. 2. 1.3 cm soft tissue nodule again seen in the left upper lobe could be better assessed with PET/CT if not already performed. Electronically authenticated by: Viviana RANDLE Date: 05/12/2023 16:25
[2023-05-12 15:47] LABS: HCG Qualitative NEGATIVE (NEGATIVE)
[2023-05-12 16:55] VITALS: PULSE 74
[2023-05-12] MEDS: lidocaine HCL 15 ML, MAG HYDROX/ALUMINUM HYD/SIMETH 30 ML, HYOSCYAMINE SULFATE 0.25 MG PO (17:07)
[2023-05-12 17:18] VITALS: BP 117/78; PULSE 75; RESP 16; O2SAT 97
== END 2023-05-12 17:21 | disposition home or self-care (01) ==
PROVIDERS: Physician Assistant; Emergency Provider Emergency Medicine
DX: R07.9 Chest pain, unspecified (principal); E66.01 Morbid (severe) obesity due to excess calories; Z68.36 Body mass index [BMI] 36.0-36.9, adult; Z79.899 Other long term (current) drug therapy; Z87.891 Personal history of nicotine dependence
CPT/HCPCS: 36415; 71045; 80053; 83690; 83880; 84484; 84703; 85025; 85378; 85610; 85730; 93005; 96374; 96375; 99285

== ENCOUNTER 2023-07-16 19:27 | Emergency (ER) | payer SELFPAY ==
[2023-07-16 19:36] VITALS: BP 114/76; PULSE 81; RESP 16; TEMP 36.6; O2SAT 98; BMI 34.4
--- NOTE | 2023-07-16 19:46 | CT_ITS ---
The [address] [address] Patient Name: COY SAMUEL MRN: [id number] date: 1985 Sex: F Assigned Patient Location: ER Current Patient Location: ER Accession/Order Number: [id number] Exam Date: 07/16/2023 19:57 Report Date: 07/16/2023 20:25 At the request of: KEVIN CAMARENA Procedure: CT head/brain wo con EXAM: CT head/brain wo con HISTORY: Head injury COMPARISON: CT head from 05/07/2021. TECHNIQUE: Multiple axial images are obtained from the skull base to the vertex without contrast enhancement. Sagittal and coronal reformations are provided. FINDINGS: No acute intracranial hemorrhage, extra-axial fluid collection, midline shift or mass effect is seen. No space-occupying lesion is demonstrated. There is no evidence of hydrocephalus or an acute ischemic event. Bone windows reveal no evidence of an acute calvarial fracture. CT/CT head/brain wo con IMPRESSION: No CT evidence of an acute intracranial hemorrhage or acute calvarial fracture. Electronically authenticated by: SALVATORE NAGEL Date: 07/16/2023 20:25
--- NOTE | 2023-07-16 19:49 | ED_ITS ---
HPI - General Adult General Chief complaint: Wound/Laceration Stated complaint: head injury Time Seen by Provider: 07/16/23 19:40 Source: patient Mode of arrival: walk-in Limitations: no limitations History of Present Illness HPI narrative: patient is a 37-year-old female who presents to the emergency department for the evaluation of a laceration between the eyebrows, above the nasal bridge. Patient states just prior to arrival she was helping a friend move in the basement when a metal bar swung back and hit her on a cart that they were using to move items. She had no loss of consciousness, she did fall to the ground but had no other associated injuries. She states she saw stars but has no persistent visual changes, no vomiting, no neck or back pain. She is not concerned for . No medications taken prior to arrival. Related Data Home Medications Medication Instructions Recorded Confirmed famotidine 20 mg tablet 20 mg PO BID 07/16/23 07/16/23 topiramate 25 mg tablet 25 mg PO DAILY 07/16/23 07/16/23 Previous Rx's Medication Instructions Recorded ibuprofen 600 mg tablet 600 mg PO QID PRN pain #20 tabs 07/16/23 ondansetron 4 mg disintegrating 4 mg PO Q6H PRN nausea and 07/16/23 tablet vomiting #12 tabs Allergies Allergy/AdvReac Type Severity Reaction Status Date / Time fentanyl Allergy hallucinati Verified 02/09/23 12:38 on Review of Systems ROS Constitutional Denies: fever or chills Ears, nose, mouth, and throat Denies: throat pain or neck pain Cardiovascular Denies: chest pain Respiratory Denies: shortness of breath or cough Gastrointestinal Denies: nausea or vomiting Musculoskeletal Denies: back pain or neck pain Integumentary/Breast Denies: rash Neurological Reports: headache Hematologic/Lymphatic Denies: easy bruising [facility] Medical History (Updated 07/16/23 @ 20:41 by PERCY Alfaro) Abnormal uterine bleeding ?N93.9 - Abnormal uterine and vaginal bleeding, unspecified (ICD-10) Anemia ?D64.9 - Anemia, unspecified (ICD-10) Anxiety ?F41.9 - Anxiety disorder, unspecified (ICD-10) Asthma ?J45.909 - Unspecified asthma, uncomplicated (ICD-10) Bradycardia associated with anesthesia Bronchitis ?J40 - Bronchitis, not specified as acute or chronic (ICD-10) COVID-19 ?U07.1 - COVID-19 (ICD-10) Deep vein thrombosis ?I82.409 - Acute embolism and thrombosis of unspecified deep veins of unspecified lower extremity (ICD-10) Delayed recovery from anesthesia Dysmenorrhea ?N94.6 - Dysmenorrhea, unspecified (ICD-10) GERD (gastroesophageal reflux disease) ?K21.9 - Gastro-esophageal reflux disease without esophagitis (ICD-10) Heartburn ?R12 - Heartburn (ICD-10) History of blood transfusion ?Z92.89 - Personal history of other medical treatment (ICD-10) Insomnia ?G47.00 - Insomnia, unspecified (ICD-10) Kidney stones ?N20.0 - Calculus of kidney (ICD-10) Menorrhagia ?N92.0 - Excessive and frequent menstruation with regular cycle (ICD-10) Migraine ?G43.909 - Migraine, unspecified, not intractable, without status migrainosus (ICD-10) Panic attacks ?F41.0 - Panic disorder [episodic paroxysmal anxiety] (ICD-10) Pelvic pain ?R10.2 - Pelvic and perineal pain (ICD-10) Pneumonia ?J18.9 - Pneumonia, unspecified organism (ICD-10) Seizures ?R56.9 - Unspecified convulsions (ICD-10) Sleep apnea ?G47.30 - Sleep apnea, unspecified (ICD-10) Surgical History (Updated 02/09/23 @ 12:49 by Sherita Jean NP) H/O lithotripsy ?Z98.890 - Other specified postprocedural states (ICD-10) History of appendectomy ?Z90.49 - Acquired absence of other specified parts of digestive tract (ICD- 10) History of bilateral salpingectomy ?Z90.79 - Acquired absence of other genital organ(s) (ICD-10) History of section ?Z98.891 - History of uterine scar from previous surgery (ICD-10) History of cholecystectomy ?Z90.49 - Acquired absence of other specified parts of digestive tract (ICD- 10) History of dilation and curettage ?Z98.890 - Other specified postprocedural states (ICD-10) History of endometrial ablation ?Z98.890 - Other specified postprocedural states (ICD-10) Family History (Updated 02/09/23 @ 12:44 by Sherita Jean NP) Other Family history of COPD (chronic obstructive pulmonary disease) Family history of DVT Family history of breast cancer Family history of heart disease Family history of hypertension Family history of myocardial infarction Family history of ovarian cancer Family history of stroke Family history of uterine cancer Social History Within the past year, how often did you have a drink containing alcohol: monthly or less Smoking status: Current every day smoker Non-prescribed substance use: cannabis (any form) Previous occupational history: [employer] Highest level of school completed/degree received: high school graduate Gender Identity: female Exam Narrative Exam Narrative: Gen.: Awake, alert, in no distress Head: Normocephalic, atraumatic ENT: Moist mucous membranes, no epistaxis or injury to the nose or mouth. 2 cm laceration oriented vertically between the eyebrows. No deep laceration or subcutaneous tissue exposure noted. Minimal bleeding noted. No Crain sign or raccoon eyes. C-spine nontender Respiratory: No respiratory distress Extremities: Moves extremities equally, no injuries noted Psych: Normal mood and affect Neuro: No focal neuro deficit Skin: Warm, dry Constitutional Vital Signs, click to edit/add: Last Vital Signs Temp 97.9 F 07/16/23 19:36 Pulse 81 07/16/23 19:36 Resp 16 07/16/23 19:36 BP 114/76 07/16/23 19:36 Pulse Ox 98 07/16/23 19:36 O2 Del Method Room Air 07/16/23 19:36 Course Vital Signs Vital signs: Vital Signs Temperature 97.9 F 07/16/23 19:36 Pulse Rate 81 07/16/23 19:36 Respiratory Rate 16 07/16/23 19:36 Blood Pressure 114/76 07/16/23 19:36 Pulse Oximetry 98 07/16/23 19:36 Oxygen Delivery Method Room Air 07/16/23 19:36 Temperature 97.9 F 07/16/23 19:36 Pulse Rate 81 07/16/23 19:36 Respiratory Rate 16 07/16/23 19:36 Blood Pressure 114/76 07/16/23 19:36 Pulse Oximetry 98 07/16/23 19:36 Oxygen Delivery Method Room Air 07/16/23 19:36 Medical Decision Making MDM Narrative Medical decision making narrative: CT of the brain is unremarkable. Tetanus updated in the emergency department. Patient given closed head injury instructions for home. Motrin and Zofran given for symptoms. Laceration to the forehead was repaired without difficulty. Please see procedure note for details. Follow-up with PCP and return to the Emergency Room if symptoms change or worsen Laceration repair: Done under sterile conditions. The use of Shur-Clens prep the area. Local injection with lidocaine 1% was used, approximately 5 cc after topical analgesia with LET. The wound was irrigated copiously with normal saline. The wound was explored there was no evidence of foreign material. The laceration was approximated with 5-0 absorbable gut. Four simple interrupted sutures were placed. Patient tolerated the procedure well. The patient was neurovascularly intact post. the patient had bacitracin applied to the laceration and a dry sterile dressing was place. Medical Records Medical records reviewed: Yes I reviewed the patient's medical records Imaging Data CT scan - head: Attestation: I have reviewed the pertinent imaging results. Discharge Plan Discharge Chief Complaint: Wound/Laceration Clinical Impression: Closed head injury, Facial laceration Patient Disposition: Home, Self-Care Time of Disposition Decision: 20:40 Condition: Good Prescriptions / Home Meds: New ibuprofen 600 mg tablet 600 mg PO QID PRN (Reason: pain) Qty: 20 0RF ondansetron 4 mg tablet,disintegrating 4 mg PO Q6H PRN (Reason: nausea and vomiting) Qty: 12 0RF No Action topiramate 25 mg tablet 25 mg PO DAILY famotidine 20 mg tablet 20 mg PO BID Instructions: Laceration (ED), Head Injury (ED), Care For Your Absorbable Stitches (ED) Stand Alone Forms: Portal Instructions Referrals: Physician,Non-Staff, MD [Primary Care Provider] - 1 week Discharge Date/Time: 07/16/23 21:05
[2023-07-16] MEDS: LIDOCAINE HCL 2%-EPINEPHRINE 1:100,000 20 ML MDV INJ (20:25)
[2023-07-16] MEDS: BACITRACIN 0.9 GM PACKET 1 PACKET TOPICAL (20:45)
[2023-07-16] MEDS: ADACEL DIPH,PERTUSS(ACELL),TET VAC/PF 0.5 ML ADULT SYRINGE IM (20:46)
[2023-07-16] MEDS: ONDANSETRON 4 MG RAPDIS TABLET SL (20:58)
[2023-07-16] MEDS: IBUPROFEN 400 MG TABLET 800 MG PO (20:59)
== END 2023-07-16 21:05 | disposition home or self-care (01) ==
PROVIDERS: Emergency Provider Internal Medicine
DX: S01.81XA Laceration without foreign body of other part of head, initial encounter (principal); S09.8XXA Other specified injuries of head, initial encounter; Z23 Encounter for immunization; W18.09XA Striking against other object with subsequent fall, initial encounter; Z79.899 Other long term (current) drug therapy; F41.9 Anxiety disorder, unspecified; J45.909 Unspecified asthma, uncomplicated; Z86.16 Personal history of COVID-19; Z86.718 Personal history of other venous thrombosis and embolism; K21.9 Gastro-esophageal reflux disease without esophagitis; Z92.89 Personal history of other medical treatment; G47.00 Insomnia, unspecified; Z87.442 Personal history of urinary calculi; G47.30 Sleep apnea, unspecified; Z87.01 Personal history of pneumonia (recurrent); Z90.49 Acquired absence of other specified parts of digestive tract; Z98.890 Other specified postprocedural states; Z98.891 History of uterine scar from previous surgery; F17.210 Nicotine dependence, cigarettes, uncomplicated; F12.90 Cannabis use, unspecified, uncomplicated
CPT/HCPCS: 12011; 70450; 90471; 90715; 99285

== ENCOUNTER 2023-11-07 05:48 | Emergency (ER) | payer OTHER, SELFPAY ==
[2023-11-07 05:57] VITALS: BP 110/85; PULSE 102; RESP 18; TEMP 37.1; O2SAT 96; BMI 32.6
--- NOTE | 2023-11-07 06:12 | ED_ITS ---
Documented by User: Collene Santoyo MD 11/08/23 02:45 HPI - URI/Sore Throat General Chief Complaint: Upper Respiratory Infection Stated Complaint: cough abd pain fever Time Seen by Provider: 11/07/23 05:55 Source: patient Limitations: no limitations History of Present Illness HPI Narrative: This 38-year-old female, smoker with a history of chronic obstructive pulmonary disease presents for evaluation of 3 days of fevers, chills, nausea vomiting diarrhea and shortness of breath. She states that she has been coughing so hard that her chest hurts. She has a dry cough. Still continues to smoke although she is trying to quit. She has generalized abdominal pain and has been having episodes of nausea and vomiting and diarrhea. She states that several times she has coughed so hard that it made her throw up but she has also been nauseated and had diarrhea. She is here with her son who has similar symptoms. They have both had fevers and chills for the past 3 days. She uses her inhalers and nebulizer machine but it has not been helping her. Related Data Home Medications Medication Instructions Recorded Confirmed albuterol sulfate 2.5 mg/3 mL 2.5 mg inhalation Q6H 11/07/23 11/07/23 (0.083 %) solution for nebulization budesonide-formoterol HFA 160 1 puff inhalation Q12H 11/07/23 11/07/23 mcg-4.5 mcg/actuation aerosol inhaler (Symbicort) cariprazine 1.5 mg capsule 1.5 mg PO Q24H 11/07/23 11/07/23 (Vraylar) lamotrigine 25 mg tablet 25 mg PO DAILY 11/07/23 11/07/23 sertraline 50 mg tablet 50 mg PO Q24H 11/07/23 11/07/23 Allergies Allergy/AdvReac Type Severity Reaction Status Date / Time fentanyl Allergy hallucinati Verified 11/07/23 06:00 on Review of Systems ROS Status of ROS 10 or more systems reviewed and unremark able except as noted in history and below [facility] Medical History (Updated 11/07/23 @ 09:11 by Tiago Costello MD) History of blood transfusion ?Z92.89 - Personal history of other medical treatment (ICD-10) Anemia ?D64.9 - Anemia, unspecified (ICD-10) Deep vein thrombosis ?I82.409 - Acute embolism and thrombosis of unspecified deep veins of unspecified lower extremity (ICD-10) Insomnia ?G47.00 - Insomnia, unspecified (ICD-10) Panic attacks ?F41.0 - Panic disorder [episodic paroxysmal anxiety] (ICD-10) Anxiety ?F41.9 - Anxiety disorder, unspecified (ICD-10) COVID-19 ?U07.1 - COVID-19 (ICD-10) Sleep apnea ?G47.30 - Sleep apnea, unspecified (ICD-10) Pneumonia ?J18.9 - Pneumonia, unspecified organism (ICD-10) Bronchitis ?J40 - Bronchitis, not specified as acute or chronic (ICD-10) Asthma ?J45.909 - Unspecified asthma, uncomplicated (ICD-10) Seizures ?R56.9 - Unspecified convulsions (ICD-10) Migraine ?G43.909 - Migraine, unspecified, not intractable, without status migrainosus (ICD-10) Kidney stones ?N20.0 - Calculus of kidney (ICD-10) Heartburn ?R12 - Heartburn (ICD-10) GERD (gastroesophageal reflux disease) ?K21.9 - Gastro-esophageal reflux disease without esophagitis (ICD-10) Bradycardia associated with anesthesia Abnormal uterine bleeding ?N93.9 - Abnormal uterine and vaginal bleeding, unspecified (ICD-10) Pelvic pain ?R10.2 - Pelvic and perineal pain (ICD-10) Menorrhagia ?N92.0 - Excessive and frequent menstruation with regular cycle (ICD-10) Dysmenorrhea ?N94.6 - Dysmenorrhea, unspecified (ICD-10) Delayed recovery from anesthesia Surgical History (Updated 02/09/23 @ 12:49 by Sherita Jean NP) H/O lithotripsy ?Z98.890 - Other specified postprocedural states (ICD-10) History of endometrial ablation ?Z98.890 - Other specified postprocedural states (ICD-10) History of cholecystectomy ?Z90.49 - Acquired absence of other specified parts of digestive tract (ICD- 10) History of bilateral salpingectomy ?Z90.79 - Acquired absence of other genital organ(s) (ICD-10) History of section ?Z98.891 - History of uterine scar from previous surgery (ICD-10) History of appendectomy ?Z90.49 - Acquired absence of other specified parts of digestive tract (ICD- 10) History of dilation and curettage ?Z98.890 - Other specified postprocedural states (ICD-10) Family History (Updated 02/09/23 @ 12:44 by Sherita Jean NP) Other Family history of COPD (chronic obstructive pulmonary disease) Family history of DVT Family history of breast cancer Family history of heart disease Family history of hypertension Family history of myocardial infarction Family history of ovarian cancer Family history of stroke Family history of uterine cancer Social History Within the past year, how often did you have a drink containing alcohol: monthly or less Smoking status: Current every day smoker Non-prescribed substance use: cannabis (any form) Previous occupational history: [employer] Highest level of school completed/degree received: high school graduate Gender Identity: female Exam Narrative Exam Narrative: Nurses note and vital signs reviewed and patient is not hypoxic.She is tachycardic with a pulse of 102 and afebrile General: Nontoxic but mildly ill-appearing female with a harsh bronchospastic cough, in between coughing spells she is speaking in complete sentences Skin: Warm, dry, no pallor noted. There is no rash noted. Head: Normocephalic, atraumatic Eye: Normal conjunctiva, no drainage, EOMI. PERRL Ears, Nose, Mouth, and Throat: oral mucosa is dry. Nares patent with clear rhinorrhea Cardiovascular: Regular Rate and Rhythm S1S2, tachycardia at triage at 102 Respiratory: Expiratory wheezing with coarse breath sounds and bronchospastic cough, no accessory muscle use Back: non-tender, no CVA tenderness bilaterally to percussion. GI: Normal bowel sounds, no tenderness to palpation,generalized tenderness with no rebound, guarding or rigidity Musculoskeletal: The patient has no evidence of calf tenderness, no pitting edema, symmetrical pulses noted bilaterally Neurological: A&O x4, normal speech Psychiatric: Cooperative Constitutional Vital Signs, click to edit/add: Last Vital Signs Temp 98.7 F 11/07/23 05:57 Pulse 75 11/07/23 07:50 Resp 16 11/07/23 07:50 BP 110/85 11/07/23 05:57 Pulse Ox 96 11/07/23 05:57 O2 Del Method Room Air 11/07/23 05:57 Course Vital Signs Vital signs: Vital Signs Temperature 98.7 F 11/07/23 05:57 Pulse Rate 102 H 11/07/23 05:57 Respiratory Rate 18 11/07/23 05:57 Blood Pressure 110/85 11/07/23 05:57 Pulse Oximetry 96 11/07/23 05:57 Oxygen Delivery Method Room Air 11/07/23 05:57 Temperature 98.7 F 11/07/23 05:57 Pulse Rate 75 11/07/23 07:50 Respiratory Rate 16 11/07/23 07:50 Blood Pressure 110/85 11/07/23 05:57 Pulse Oximetry 96 11/07/23 05:57 Oxygen Delivery Method Room Air 11/07/23 05:57 MDM - URI/Sore Throat MDM Narrative Medical decision making narrative: This 38-year-old female with a history of chronic obstructive pulmonary disease who continues to smoke presents for evaluation of 3 days of fever, chills, chest pain from coughing with nausea vomiting and diarrhea. He is being seen in contact with her son with similar symptoms. She states she was trying to manage her symptoms at home but cannot stop coughing. She does have a harsh bronchospastic cough. Her vital signs were stable with the exception of a mild elevation in her pulse at 102. EKG done upon arrival was sinus rhythm at 80 bpm with no acute changes. She has become increasingly tachycardic after a coughing spell. She has expiratory wheezing. Due to her tachycardia and shortness of breath with a history of chronic obstructive pulmonary disease an IV was placed and she was medicated with IV fluids, Toradol, Zofran and 125 mg of IV Solu- Medrol. A DuoNeb was ordered. CXR was ordered Lab Data Labs: Lab Results 11/07/23 11/07/23 Range/Units 06:00 06:40 WBC 5.1 (4.0-11.0) 10^3/uL RBC 4.13 L (4.20-5.40) 10^6/uL Hgb 12.3 (12.0-16.0) g/dL Hct 38.0 (36.0-48.0) % MCV 92.0 (81.0-99.0) fL MCH 29.8 (26.7-34.0) pg MCHC 32.4 (29.9-35.2) g/dL RDW 12.6 (11.0-15.0) % Plt Count 249 (150-450) 10^3/uL MPV 9.9 (9.5-13.5) fL Neut % (Auto) 77.5 H (43.0-75.0) % Lymph % (Auto) 11.7 L (20.5-60.0) % [place] % (Auto) 9.4 (1.7-12.0) % Eos % (Auto) 0.8 L (0.9-7.0) % Baso % (Auto) 0.4 (0.2-2.0) % Neut # (Auto) 4.0 (1.4-6.5) 10^3/uL Lymph # (Auto) 0.6 L (1.2-3.8) 10^3/uL [place] # (Auto) 0.5 (0.3-0.8) 10^3/uL Eos # (Auto) 0.0 (0.0-0.7) 10^3/uL Baso # (Auto) 0.0 (0.0-0.1) 10^3/uL Abs Immat Gran (auto) 0.01 (0.00-0.03) 10^3/uL Imm/Tot Granulo (auto) 0.2 (0.0-0.5) % Sodium 137 (136-145) mmol/L Potassium 3.7 (3.5-5.1) mmol/L Chloride 102 (98-107) mmol/L Carbon Dioxide 23.5 (21.0-32.0) mmol/L Anion Gap 15.2 BUN 6.0 L (7.0-18.0) mg/dL Creatinine 0.85 (0.55-1.02) mg/dL Est GFR ( Amer) >60 (>=60) Est GFR (Non-Af Amer) >60 (>=60) BUN/Creatinine Ratio 7.1 Glucose 106 (74-106) mg/dL Calcium 8.2 L (8.5-10.1) mg/dL Total Bilirubin 0.2 (0.2-1.0) mg/dL AST 22 (15-37) U/L ALT 38 (14-59) U/L Alkaline Phosphatase 103 (46-116) U/L Troponin I High Sens <4.0 L (4.0-51.3) pg/mL Total Protein 6.8 (6.4-8.2) g/dL Albumin 3.1 L (3.4-5.0) g/dL Globulin 3.7 g/dL Albumin/Globulin Ratio 0.8 Lipase 24.0 (16.0-77.0) U/L Adenovirus (PCR) Not detected (NOT DETECTE) C. pneumoniae DNA (PCR) Not detected (NOT DETECTE) Coronavirus Type OC43 Not detected (NOT DETECTE) Coronavirus Type HKU1 Not detected (NOT DETECTE) Coronavirus Type 229E Not detected (NOT DETECTE) Coronavirus Type NL63 Not detected (NOT DETECTE) Human Metapneumovir PCR Not detected (NOT DETECTE) Influenza Type A Ag Negative Influenza Type B Ag Negative M. pneumoniae (PCR) Not detected (NOT DETECTE) Parainfluenza PCR Not detected (NOT DETECTE) Parainfluenza 2 (PCR) Not detected (NOT DETECTE) Parainfluenza 3 (PCR) Not detected (NOT DETECTE) Parainfluenza 4 (PCR) Not detected (NOT DETECTE) RSV (RT-PCR) Not detected (NOT DETECTE) Entero/Rhino (PCR) Not detected (NOT DETECTE) SARS-CoV-2 (PCR) Not detected (NOT DETECTE) Bordetella pertussis (PCR) Not detected (NOT DETECTE) B parapertussis DNA PCR Not detected (NOT DETECTE) Influenza Type A (PCR) Not detected (NOT DETECTE) Influenza Type B (PCR) Detected A (NOT DETECTE) Discharge Plan Discharge Chief Complaint: Upper Respiratory Infection Clinical Impression: Influenza Patient Disposition: Home, Self-Care Time of Disposition Decision: 09:11 Prescriptions / Home Meds: No Action albuterol sulfate 2.5 mg /3 mL (0.083 %) solution for nebulization 2.5 mg inhalation Q6H lamotrigine 25 mg tablet 25 mg PO DAILY sertraline 50 mg tablet 50 mg PO Q24H Vraylar 1.5 mg capsule 1.5 mg PO Q24H budesonide-formoterol [Symbicort] 160-4.5 mcg/actuation HFA aerosol inhaler 1 puff INHALATION Q12H Instructions: Influenza (DC) Additional Instructions: Prednisone for 7 days/albuterol nebs as needed. Return to emergency room for any decreasing pulse oximetry or trouble Referrals: Physician,Non-Staff, [Physician] - 1 week Discharge Date/Time: 11/07/23 09:28 Stand Alone Forms: Portal Instructions Documented by User: Tiago Costello MD 11/07/23 09:11 HPI - URI/Sore Throat General Chief Complaint: Upper Respiratory Infection Stated Complaint: cough abd pain fever Time Seen by Provider: 11/07/23 05:55 Related Data Home Medications Medication Instructions Recorded Confirmed albuterol sulfate 2.5 mg/3 mL 2.5 mg inhalation Q6H 11/07/23 11/07/23 (0.083 %) solution for nebulization budesonide-formoterol HFA 160 1 puff inhalation Q12H 11/07/23 11/07/23 mcg-4.5 mcg/actuation aerosol inhaler (Symbicort) cariprazine 1.5 mg capsule 1.5 mg PO Q24H 11/07/23 11/07/23 (Vraylar) lamotrigine 25 mg tablet 25 mg PO DAILY 11/07/23 11/07/23 sertraline 50 mg tablet 50 mg PO Q24H 11/07/23 11/07/23 Allergies Allergy/AdvReac Type Severity Reaction Status Date / Time fentanyl Allergy hallucinati Verified 11/07/23 06:00 on [facility] Medical History (Updated 11/07/23 @ 09:11 by Tiago Costello MD) History of blood transfusion ?Z92.89 - Personal history of other medical treatment (ICD-10) Anemia ?D64.9 - Anemia, unspecified (ICD-10) Deep vein thrombosis ?I82.409 - Acute embolism and thrombosis of unspecified deep veins of unspecified lower extremity (ICD-10) Insomnia ?G47.00 - Insomnia, unspecified (ICD-10) Panic attacks ?F41.0 - Panic disorder [episodic paroxysmal anxiety] (ICD-10) Anxiety ?F41.9 - Anxiety disorder, unspecified (ICD-10) COVID-19 ?U07.1 - COVID-19 (ICD-10) Sleep apnea ?G47.30 - Sleep apnea, unspecified (ICD-10) Pneumonia ?J18.9 - Pneumonia, unspecified organism (ICD-10) Bronchitis ?J40 - Bronchitis, not specified as acute or chronic (ICD-10) Asthma ?J45.909 - Unspecified asthma, uncomplicated (ICD-10) Seizures ?R56.9 - Unspecified convulsions (ICD-10) Migraine ?G43.909 - Migraine, unspecified, not intractable, without status migrainosus (ICD-10) Kidney stones ?N20.0 - Calculus of kidney (ICD-10) Heartburn ?R12 - Heartburn (ICD-10) GERD (gastroesophageal reflux disease) ?K21.9 - Gastro-esophageal reflux disease without esophagitis (ICD-10) Bradycardia associated with anesthesia Abnormal uterine bleeding ?N93.9 - Abnormal uterine and vaginal bleeding, unspecified (ICD-10) Pelvic pain ?R10.2 - Pelvic and perineal pain (ICD-10) Menorrhagia ?N92.0 - Excessive and frequent menstruation with regular cycle (ICD-10) Dysmenorrhea ?N94.6 - Dysmenorrhea, unspecified (ICD-10) Delayed recovery from anesthesia Surgical History (Updated 02/09/23 @ 12:49 by Sherita Jean NP) H/O lithotripsy ?Z98.890 - Other specified postprocedural states (ICD-10) History of endometrial ablation ?Z98.890 - Other specified postprocedural states (ICD-10) History of cholecystectomy ?Z90.49 - Acquired absence of other specified parts of digestive tract (ICD- 10) History of bilateral salpingectomy ?Z90.79 - Acquired absence of other genital organ(s) (ICD-10) History of section ?Z98.891 - History of uterine scar from previous surgery (ICD-10) History of appendectomy ?Z90.49 - Acquired absence of other specified parts of digestive tract (ICD- 10) History of dilation and curettage ?Z98.890 - Other specified postprocedural states (ICD-10) Family History (Updated 02/09/23 @ 12:44 by Sherita Jean NP) Other Family history of COPD (chronic obstructive pulmonary disease) Family history of DVT Family history of breast cancer Family history of heart disease Family history of hypertension Family history of myocardial infarction Family history of ovarian cancer Family history of stroke Family history of uterine cancer Social History Within the past year, how often did you have a drink containing alcohol: monthly or less Smoking status: Current every day smoker Non-prescribed substance use: cannabis (any form) Previous occupational history: [employer] Highest level of school completed/degree received: high school graduate Gender Identity: female Exam Constitutional Vital Signs, click to edit/add: Last Vital Signs Temp 98.7 F 11/07/23 05:57 Pulse 75 11/07/23 07:50 Resp 16 11/07/23 07:50 BP 110/85 11/07/23 05:57 Pulse Ox 96 11/07/23 05:57 O2 Del Method Room Air 11/07/23 05:57 Course Vital Signs Vital signs: Vital Signs Temperature 98.7 F 11/07/23 05:57 Pulse Rate 102 H 11/07/23 05:57 Respiratory Rate 18 11/07/23 05:57 Blood Pressure 110/85 11/07/23 05:57 Pulse Oximetry 96 11/07/23 05:57 Oxygen Delivery Method Room Air 11/07/23 05:57 Temperature 98.7 F 11/07/23 05:57 Pulse Rate 75 11/07/23 07:50 Respiratory Rate 16 11/07/23 07:50 Blood Pressure 110/85 11/07/23 05:57 Pulse Oximetry 96 11/07/23 05:57 Oxygen Delivery Method Room Air 11/07/23 05:57 MDM - URI/Sore Throat MDM Narrative Medical decision making narrative: This 38-year-old female with a history of chronic obstructive pulmonary disease who continues to smoke presents for evaluation of 3 days of fever, chills, chest pain from coughing with nausea vomiting and diarrhea. He is being seen in contact with her son with similar symptoms. She states she was trying to manage her symptoms at home but cannot stop coughing. She does have a harsh bronchospastic cough. Her vital signs were stable with the exception of a mild elevation in her pulse at 102. EKG done upon arrival was sinus rhythm at 80 bpm with no acute changes. She has become increasingly tachycardic after a coughing spell. She has expiratory wheezing. Due to her tachycardia and shortness of breath with a history of chronic obstructive pulmonary disease an IV was placed and she was medicated with IV fluids, Toradol, Zofran and 125 mg of IV Solu- Medrol. A DuoNeb was ordered. CXR was ordered Patient was observed in the emergency room until 9:10 AM by myself, Dr. Flores. Her influenza testing was delayed but both her and her son test positive for influenza B. This patient has a nebulizer machine at home but needs more medication. She was started on steroids. There is no indication of bacterial pneumonia. She does have a pulse oximetry device on her watch and she was to return to the emergency room should it decrease. Lab Data Labs: Lab Results 11/07/23 11/07/23 Range/Units 06:00 06:40 WBC 5.1 (4.0-11.0) 10^3/uL RBC 4.13 L (4.20-5.40) 10^6/uL Hgb 12.3 (12.0-16.0) g/dL Hct 38.0 (36.0-48.0) % MCV 92.0 (81.0-99.0) fL MCH 29.8 (26.7-34.0) pg MCHC 32.4 (29.9-35.2) g/dL RDW 12.6 (11.0-15.0) % Plt Count 249 (150-450) 10^3/uL MPV 9.9 (9.5-13.5) fL Neut % (Auto) 77.5 H (43.0-75.0) % Lymph % (Auto) 11.7 L (20.5-60.0) % [place] % (Auto) 9.4 (1.7-12.0) % Eos % (Auto) 0.8 L (0.9-7.0) % Baso % (Auto) 0.4 (0.2-2.0) % Neut # (Auto) 4.0 (1.4-6.5) 10^3/uL Lymph # (Auto) 0.6 L (1.2-3.8) 10^3/uL [place] # (Auto) 0.5 (0.3-0.8) 10^3/uL Eos # (Auto) 0.0 (0.0-0.7) 10^3/uL Baso # (Auto) 0.0 (0.0-0.1) 10^3/uL Abs Immat Gran (auto) 0.01 (0.00-0.03) 10^3/uL Imm/Tot Granulo (auto) 0.2 (0.0-0.5) % Sodium 137 (136-145) mmol/L Potassium 3.7 (3.5-5.1) mmol/L Chloride 102 (98-107) mmol/L Carbon Dioxide 23.5 (21.0-32.0) mmol/L Anion Gap 15.2 BUN 6.0 L (7.0-18.0) mg/dL Creatinine 0.85 (0.55-1.02) mg/dL Est GFR ( Amer) >60 (>=60) Est GFR (Non-Af Amer) >60 (>=60) BUN/Creatinine Ratio 7.1 Glucose 106 (74-106) mg/dL Calcium 8.2 L (8.5-10.1) mg/dL Total Bilirubin 0.2 (0.2-1.0) mg/dL AST 22 (15-37) U/L ALT 38 (14-59) U/L Alkaline Phosphatase 103 (46-116) U/L Troponin I High Sens <4.0 L (4.0-51.3) pg/mL Total Protein 6.8 (6.4-8.2) g/dL Albumin 3.1 L (3.4-5.0) g/dL Globulin 3.7 g/dL Albumin/Globulin Ratio 0.8 Lipase 24.0 (16.0-77.0) U/L Adenovirus (PCR) Not detected (NOT DETECTE) C. pneumoniae DNA (PCR) Not detected (NOT DETECTE) Coronavirus Type OC43 Not detected (NOT DETECTE) Coronavirus Type HKU1 Not detected (NOT DETECTE) Coronavirus Type 229E Not detected (NOT DETECTE) Coronavirus Type NL63 Not detected (NOT DETECTE) Human Metapneumovir PCR Not detected (NOT DETECTE) Influenza Type A Ag Negative Influenza Type B Ag Negative M. pneumoniae (PCR) Not detected (NOT DETECTE) Parainfluenza PCR Not detected (NOT DETECTE) Parainfluenza 2 (PCR) Not detected (NOT DETECTE) Parainfluenza 3 (PCR) Not detected (NOT DETECTE) Parainfluenza 4 (PCR) Not detected (NOT DETECTE) RSV (RT-PCR) Not detected (NOT DETECTE) Entero/Rhino (PCR) Not detected (NOT DETECTE) SARS-CoV-2 (PCR) Not detected (NOT DETECTE) Bordetella pertussis (PCR) Not detected (NOT DETECTE) B parapertussis DNA PCR Not detected (NOT DETECTE) Influenza Type A (PCR) Not detected (NOT DETECTE) Influenza Type B (PCR) Detected A (NOT DETECTE) Discharge Plan Discharge Chief Complaint: Upper Respiratory Infection Clinical Impression: Influenza Patient Disposition: Home, Self-Care Time of Disposition Decision: 09:11 Prescriptions / Home Meds: No Action albuterol sulfate 2.5 mg /3 mL (0.083 %) solution for nebulization 2.5 mg inhalation Q6H lamotrigine 25 mg tablet 25 mg PO DAILY sertraline 50 mg tablet 50 mg PO Q24H Vraylar 1.5 mg capsule 1.5 mg PO Q24H budesonide-formoterol [Symbicort] 160-4.5 mcg/actuation HFA aerosol inhaler 1 puff INHALATION Q12H Instructions: Influenza (DC) Additional Instructions: Prednisone for 7 days/albuterol nebs as needed. Return to emergency room for any decreasing pulse oximetry or trouble Referrals: Physician,Non-Staff, [Physician] - 1 week Discharge Date/Time: 11/07/23 09:28 Stand Alone Forms: Portal Instructions
--- NOTE | 2023-11-07 06:13 | XR_ITS ---
The [address] [address] Patient Name: COY SAMUEL MRN: [id number] date: 1985 Sex: F Assigned Patient Location: ER Current Patient Location: ER Accession/Order Number: [id number] Exam Date: 11/07/2023 06:32 Report Date: 11/07/2023 06:47 At the request of: SD MARKER Procedure: XR chest 2V EXAM: XR chest 2V HISTORY: SOB ; technologist notes state flulike symptoms for 2 days and history of COPD. COMPARISON: Chest radiograph dated 05/12/2023. TECHNIQUE: PA and lateral views of the chest performed. FINDINGS: The trachea is midline. The heart size is normal. The cardiomediastinal silhouette and hilar shadows are normal. There is no consolidation or infiltrates. There is no pleural effusion or pulmonary vascular congestion. The known 1.3 cm noncalcified nodule at the left lung apex is obscured on the current examination. There is no pneumothorax or osseous abnormality. XR/XR chest 2V IMPRESSION: There is no acute cardiopulmonary process. The known 1.3 cm noncalcified nodule at the left lung apex is obscured on the current examination. A scheduled PET CT examination is recommended. Electronically authenticated by: SUKHDEV ELDRIDGE Date: 11/07/2023 06:47
--- NOTE | 2023-11-07 06:14 | ECG_ITS ---
The 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
--- OUTSIDE RECORDS SUMMARY | 2023-11-07 06:19 | XMS_ITS | CCD ---
Author Name Unknown Address [address] [place] [address] Organization [facility] Care Team Providers Care Seismograph Supervisor Name Role Phone PRINCESS HOYT Attending Unavailable Unavailable Primary Care Provider UnavailMukund Silveira Unavailable Radha Arciniega Unavailable Christopher Mendez Unavailable MD Mukund Rodriguez Attending Provider [phone] NON STAFF Primary Care Provider UnavailMD Christopher Jacobson Attending Provider Mukund Rodriguez Attending Unavailable NON STAFF Primary Care Unavailable Mukund Rodriguez Admitting Unavailable NON STAFF Primary Care Unavailable Christopher Mendez Admitting UnavailChristopher Jacobson Attending Unavailabl e Jimmie Crawford DDS Attending Unavailable [facility] Unava ilable NEY, DR MARYURI Parker Admitting Unavailabl e NEY, DR MARYURI Parker Consulting Unavailabl e NEY, DR MARYURI Parker Attending Unavailabl e [facility] Unava ilable KRISHNA WILKS Attending Unavailable MICHAELA Blanco, KRISHNA Admitting Unavailable PERCY ELIZABETH Consulting Unavailabl e MICHAELA ., KRISHNA Consulting Unavailable [facility] Unava ilable LOW ESCALANTE Attending Unavailable LOW ESCALANTE Consulting Unavailable ZOLTAN ESCALANTEYL Admitting Unavailable [facility] Unava ilable LOW ESCALANTE Attending Unavailable BORIS LOW Consulting Unavailable BORIS, LOW Admitting Unavailable [facility] Unava ilable AYLIN ., DR EVERETT Admitting Unavailable AYLIN ., DR EVERETT Attending Unavailable AYLIN ., DR EVERETT Consulting Unavailable [facility] Consulting Unava ilable [facility] Unava ilable AYLIN ., DR EVERETT Admitting Unavailable AYLIN ., DR EVERETT Attending Unavailable [facility] Unava ilable HAY ., DR FRIED Consulting Unavailable BORIS, LOW Admitting Unavailable LOW ESCALANTE Attending Unavailable [facility] Unava ilable DIAB ., RENA Attending Unavailable JUDY CONKLIN Consulting Unavailable DIAB ., RENA Admitting Unavailable DIAB ., RENA Consulting Unavailable [facility] Unava ilable GUILLE, DR RANJAN Joyce Admitting Unavailable GUILLE, DR RANJAN Joyce Attending Unavailable GUILLE, DR RANJAN Joyce Consulting Unavailable MARIAM SANCHEZ Consulting Unavailable [facility] Unava ilable AYLIN ., DR EVERETT Attending Unavailable AYLIN ., DR EVERETT Admitting Unavailable [facility] Unava ilable AYLIN ., DR EVERETT Admitting Unavailable AYLIN ., DR EVERETT Attending Unavailable AYLIN ., DR EVERETT Consulting Unavailable AGUBOSIM, AMOS Consulting Unavailable DORTRACEY FORBES Consulting Unavailable [facility] Consulting Unava ilable GLENN JIN Attending Unavailable [facility] Unava ilable GLENN JIN Admitting Unavailable GIULIANO MANZO Consulting Unavailable GLENN JIN Consulting Unavailable BRYSON, MUKUND Consulting Unavailable POLICARO, ESTHER Consulting Unavailable [facility] Unava ilable AMBERLY, DR DARIEN Silvestre Consulting Unavailable NADEREIsiah, DR DARIEN Silvestre Attending Unavailable NADERER, DR DARIEN Silvestre Admitting Unavailable HAY ., DR FRIED Consulting Unavailable PRINCESS DESIR Consulting Unavailable .MEGAN DUGAN Consulting Unavailable OLEXAMUKUND Attending Unavailable OLEXA, MUKUND Admitting Unavailable [facility] Unava ilable [facility] Unava ilable NEY, DR MARYURI Parker Attending Unavailjuan m BREWSTER, DR MARYURI Parker Admitting Unavailjuan m BREWSTER, DR MARYURI Parker Consulting Unavailjuan m LIRIANO, DR LOUIE Joyce Consulting Unavailable [facility] Unava ilable NEY, DR MARYURI Parker Attending Unavailjuan m BREWSTER, DR MARYURI Parker Admitting Unavailjuan m BREWSTER, DR MARYURI Parker Consulting Unavailjuan m LYLE, DR SREE Peña Consulting Unavailable [facility] Unava ilable LOW ESCALANTE Attending Unavailable NICOL .PERCY Consulting UnavailLOW De Santiago Admitting Unavailable SREE MCCLENDON Consulting Unavailable Allergies Allergy Classification Reported Allergen(s) Allergy Type Date of Onset Reaction(s) Facility (4 sources) [facility] Allergy [facility] [employer] Other (1 source) fenta[facility] Drug Allergy [facility] Repository Medications Current Medications Medication Drug Class(es) Dates Sig (Normalized) Sig (Original) Acetaminophen / oxyCODONE (2 sources) Opioid Agonist Percocet Active azithromycin 250 mg oral tablet (1 source) Macrolide Antimicrobial Start: 03-01-2020 End: 03-11-2020 azithromycin (ZITHROMAX) 250 MG tablet Indications: Bronchitis Take 2 tablets (500 mg) on Day 1, followed by 1 tablet (250 mg) once daily on Days 2 through 5. 1 packet 0 03/01/2020 03/11/2020 Active cyclobenzaprine hydrochloride 5 mg oral tablet (4 sources) Muscle Relaxant take 1 tablet by mouth every twenty-four hours Cyclobenzaprine HCl 5 MG 1 tablet at bedtime as needed Orally Once a day Active naproxen 250 mg oral tablet (4 sources) Nonsteroidal Anti-inflammatory Drug take 1 tablet by mouth every twelve hours Naproxen 250 MG 1 tablet with food or milk Orally Twice a day Active predniSONE 10 mg oral tablet (1 source) Start: 03-01-2020 End: 03-11-2020 take 4 tablets by mouth once daily predniSONE (DELTASONE) 10 MG tablet Take 4 tablets by mouth once daily for 5 days 20 tablet 0 03/01/2020 03/11/2020 Active topiramate 100 mg oral tablet (1 source) topiramate (TOPA MAX) 100 MG tablet Take 150 mg by mouth 2 times daily 0 Active traMADol hydrochloride 50 mg oral tablet (2 sources) Opioid Agonist take 1 tablet by mouth every twenty-four hours traMADol HCl 50 MG 1 tablet as needed Orally Once a day Active zolpidem tartrate 10 mg oral tablet (1 source) gamma-Aminobutyric Acid-ergic Agonist take 5 mg by mouth once daily as needed for sleep zolpidem (AMBIEN) 10 MG tablet Take 5 mg by mouth nightly as needed for Sleep. 0 Active Completed/Discontinued Medications Medication Drug Class(es) Dates Sig (Normalized) Sig (Original) acetaminophen 500 mg oral tablet (1 source) Start: 03-01-2020 End: 03-01-2020 acetaminophen (TYLENOL) tablet 1,000 mg triamcinolone acetonide 40 mg/ml injectable suspension (3 sources) Corticosteroid Start: 05-04-2022 Kenalog-40 Apr, 40 mg Problems Active Problems Problem Classification Problem Date Documented Date Episodic/Chronic Asthma (1 source) Unspecified asthma, uncomplicated; Translations: [UNSPECIFIED ASTHMA UNCOMPLICATED] Onset: 09-08-2022 Chronic Chronic obstructive pulmonary disease and bronchiectasis (1 source) Mucopurulent chronic bronchitis; Translations: [MUCOPURULENT CHRONIC BRONCHITIS] Onset: 05-19-2022 Chronic Fluid and electrolyte disorders (1 source) Volume depletion, unspecified; Translations: [VOLUME DEPLETION UNSPECIFIED] Onset: 12-21-2022 Episodic Genitourinary symptoms and ill-defined conditions (1 source) Unspecified urinary incontinence; Translations: [UNSPECIFIED URINARY INCONTINENCE] Onset: 04-19-2022 Chronic Immunizations and screening for infectious disease (1 source) Contact with and (suspected) exposure to other communicable diseases; Translations: [CONTACT W EXPS OTH COMMUNICABLE DZ] Onset: 11-05-2022 Episodic Intestinal infection (1 source) Viral intestinal infection, unspecified; Translations: [VIRAL INTESTINAL INFECTION UNSPEC] Onset: 10-25-2022 Episodic Malaise and fatigue (3 sources) Weakness; Translations: [WEAKNESS] Onset: 12-18-2022 Episodic Menstrual disorders (4 sources) Excessive and frequent menstruation with regular cycle; Translations: [EXCESS FREQ MENSTRUATION W/REG CYCL] Onset: 04-16-2022 Chronic Nausea and vomiting (3 sources) Nausea with vomiting, unspecified; Translations: [NAUSEA WITH VOMITING UNSPECIFIED] Onset: 10-22-2022 Episodic Other aftercare (1 source) Other mold technician (current) drug therapy; Translations: [OTH FPC CURRENT DRUG THERAPY] Onset: 12-21-2022 Episodic Other disorders of stomach and duodenum (4 sources) Indigestion; Translations: [Functional dyspepsia] Episodic Other female genital disorders (1 source) Other specified abnormal uterine and vaginal bleeding; Translations: [OTH SPEC ABNORMAL UTERINE VAG BLEED] Onset: 12-21-2022 Chronic Other female genital disorders (1 source) Unspecified dyspareunia; Translations: [UNSPECIFIED DYSPAREUNIA] Onset: 04-19-2022 Chronic Other nervous system disorders (1 source) Other chronic pain; Translations: [OTHER CHRONIC PAIN] Onset: 03-25-2022 Chronic Other upper respiratory infections (6 sources) Acute upper respiratory infection, unspecified; Translations: [Acute laryngitis] Onset: 11-05-2022 Episodic Screening and history of mental health and substance abuse codes (1 source) Personal history of nicotine dependence; Translations: [PERSONAL HISTORY OF NICOTINE DEPEND] Onset: 01-13-2023 Episodic Substance-related disorders (1 source) Nicotine dependence, cigarettes, uncomplicated; Translations: [NICOTINE DEPEND CIGARETTES UNCOMP] Onset: 12-21-2022 Chronic Unclassified (1 source) Encounter for preprocedural laboratory examination; Translations: [Encounter for preprocedural laboratory examination] Onset: 06-28-2022 Unclassified (1 source) Sprain of other specified parts of left knee, initial encounter; Translations: [Sprain of other specified parts of left knee, initial encounter] Onset: 04-20-2022 Unclassified (3 sources) COUGH, UNSPECIFIED; Translations: [COUGH, UNSPECIFIED] Onset: 01-13-2023 Unclassified (1 source) CONTACT W/AND (SUSP) EXPOS COVID-19; Translations: [CONTACT W/AND (SUSP) EXPOS COVID-19] Onset: 11-15-2022 Unclassified (3 sources) LOW BACK PAIN, UNSPECIFIED; Translations: [LOW BACK PAIN, UNSPECIFIED] Onset: 03-25-2022 Past or Other Problems Problem Classification Problem Date Documented Da te Episodic/Chronic Abdominal pain (6 sources) Epigastric pain; Translations: [Pelvic and perineal pain] Onset: 02-23-2022 Episodic Chronic obstructive pulmonary disease and bronchiectasis (1 source) Bronchitis; Translations: [Bronchitis] Episodic E Codes: Fall (1 source) Fall on same level from slipping, tripping and stumbling without subsequent striking against object, initial encounter; Translations: [FALL SAME LVL SLIP NO STRK OBJ INIT] Onset: 03-03-2022 Episodic Other connective tissue disease (3 sources) Pain in left leg; Translations: [PAIN IN LEFT LEG] Onset: 03-08-2022 Episodic Other connective tissue disease (1 source) Pain in left lower leg; Translations: [PAIN IN LEFT LOWER LEG] Onset: 03-10-2022 Episodic Other lower respiratory disease (1 source) Solitary pulmonary nodule; Translations: [SOLITARY PULMONARY NODULE] Onset: 09-08-2022 Episodic Other non-traumatic joint disorders (3 sources) Pain in left knee; Translations: [PAIN IN LEFT KNEE] Onset: 02-27-2022 Episodic Pleurisy; pneumothorax; pulmonary collapse (1 source) Pleurisy; Translations: [PLEURISY] Onset: 09-08-2022 Episodic Sprains and strains (9 sources) Sprain of other specified parts of left knee, initial encounter; Translations: [Sprain of other specified parts of left knee, subsequent encounter] Onset: 03-01-2022 Resolved: 05-04-2022 Episodic Unclassified (1 source) COUGH, UNSPECIFIED; Translations: [COUGH, UNSPECIFIED] Onset: 01-11-2023 Unclassified (1 source) LOW BACK PAIN, UNSPECIFIED; Translations: [LOW BACK PAIN, UNSPECIFIED] Onset: 03-23-2022 Results Test Name Value Interpretation Reference Range Facility AMYLASEon 01-19-2023 Amylase [Catalytic activity/Vol] 39 U/L Normal 25-115 [facility] Comment on above: Performed By: #### A MY, LIPA, CMP ####[facility] [address] [place], [place] [address]Dr. Dulceuday Simmons CBC AUTO DIFFon 01-19-2023 BASO # 0.1 103/ul Normal 0.0-0.1 [facility] Comment on above: Performed By: #### C BC ####[facility] [address] [place], [place] [address]Dr. Nicky Simmons Basophils/100 WBC (Bld) 0.5 % Normal 0.2-2.0 [facility] Comment on above: Performed By: #### C BC ####[facility] [address] [address]Dr. Nicky Simmons EO # 0.2 103/ul Normal 0.0-0.7 [facility] Comment on above: Performed By: #### C BC ####[facility] [address] [place], [place] [address]Dr. Nicky Simmons Eosinophils/100 WBC (Bld) 1.7 % Normal 0.9-7.0 [facility] Comment on above: Performed By: #### C BC ####[facility] [address] [address]Dr. Nicky Simmons Erythrocyte distribution width (RBC) [Ratio] 13.0 % Normal 11.0-15.0 [facility] Comment on above: Performed By: #### C BC ####[facility] [address] [place] [address]Dr. Nicky Simmons Hematocrit (Bld) [Volume fraction] 39.9 % Normal 36.0-48.0 [facility] Comment on above: Performed By: #### C BC ####[facility] [address] [place], [place] [address]Dr. Nicky Simmons Hemoglobin (Bld) [Mass/Vol] 13.2 g/dL Normal 12.0-16.0 [facility] Comment on above: Performed By: #### C BC ####[facility] [address] [place], [place] [address]Dr. Nicky Simmons IG # 0.05 10e3/ul Critically high 0.00-0.03 [facility] Comment on above: Performed By: #### C BC ####[facility] [address] [place], [place] [address]Dr. Nicky Simmons IG % 0.5 % Normal 0.0-0.5 [facility] Comment on above: Performed By: #### C BC ####[facility] [address] [place], [place] [address]Dr. Nicky Simmons LYMPH # 3.1 103/ul Normal 1.2-3.8 [facility] Comment on above: Performed By: #### C BC ####[facility] [address] [place], [place] [address]Dr. Nicky Simmons Lymphocytes/100 WBC (Bld) 28.3 % Normal 20.5-60.0 [facility] Comment on above: Performed By: #### C BC ####[facility] [address] [place], [place] [address]Dr. Nicky Simmons MANUAL DIFF REQ NO Normal [facility] Comment on above: Performed By: #### C BC ####[facility] [address] [place] [id number]. Nicky Troy MCH (RBC) [Entitic mass] 28.7 pg Normal 26.7-34.0 [facility] Comment on above: Performed By: #### C BC ####[facility] [address] [place] [id number]. Nicky Troy MCHC (RBC) [Mass/Vol] 33.1 g/dL Normal 29.9-35.2 [facility] Comment on above: Performed By: #### C BC ####[facility] [address] [place] [id number]. Nicky Troy MCV (RBC) [Entitic vol] 86.7 fL Normal 81.0-99.0 [facility] Comment on above: Performed By: #### C BC ####[facility] [address] [place], [place] [address]Dr. Nicky Simmons MONO # 0.6 103/ul Normal 0.3-0.8 [facility] Comment on above: Performed By: #### C BC ####[facility] [address] [place] [address]Dr. Nicky Simmons Monocytes/100 WBC (Bld) 5.6 % Normal 1.7-12.0 [facility] Comment on above: Performed By: #### C BC ####[facility] [address] [place] [id number]. Nicky Simmons NEUT # 7.0 103/ul Critically high 1.4-6.5 [facility] Comment on above: Performed By: #### C BC ####[facility] [address] [place] [id number]. Nicky Simmons Neutrophils/100 WBC (Bld) 63.4 % Normal 43.0-75.0 [facility] Comment on above: Performed By: #### C BC ####[facility] [address] [place], [place] [id number]. Nicky Simmons Platelet mean volume (Bld) [Entitic vol] 9.0 fL Critically low 9.5-13.5 [facility] Comment on above: Performed By: #### C BC ####[facility] [address] [place], [place] [address]Sn. Nicky Simmons PLT 358 103/ul Normal 150-450 [facility] Comment on above: Performed By: #### C BC ####[facility] [address] [place], [place] [address]Ii. Nicky Simmons RBC 4.60 106/ul Normal 4.20-5.40 [facility] Comment on above: Performed By: #### C BC ####[facility] [address] [place], [place] [address]He. Nicky Simmons WBC 11.0 103/ul Normal 4.0-11.0 [facility] Comment on above: Performed By: #### C BC ####[facility] [address] [place], [place] [address]Ea. Nicky Simmons CT ABD/PELV W CONon 01-20-[address] ABD/PELV W CON EXAMINATION: CT ABD/PELV W CON HISTORY: GENERALIZED ABDOMINAL PAIN COMPARISON: CT abdomen and pelvis 10/21/2022. TECHNIQUE: Following intravenous administration of 99 mL of Omnipaque 300, axial soft tissue windows of the abdomen and pelvis were performed with coronal and sagittal reformats. Dose reduction techniques were achieved by using automated exposure control and/or adjustment of mA and/or kV according to patient size and/or use of iterative reconstruction technique. Findings: ABDOMEN: The liver, spleen, pancreas, adrenal glands and kidneys are unremarkable. The bilateral ureters are nondilated. Evaluation of the bowel is limited given the absence of oral contrast. No bowel obstruction. The appendix is surgically absent. The aorta is normal caliber. No enlarged abdominal lymph nodes or free abdominal fluid. Moderate sized fat-containing umbilicus hernia. Pelvis: Unremarkable bladder. The uterus is present and unremarkable the limits of CT. No enlarged pelvic lymph nodes or free pelvic fluid. No aggressive sclerotic or lytic osseous lesions. IMPRESSION: 1. Moderate sized fat-containing umbilicus hernia. Electronically authenticated by: PRINCESS DESIR Date: 2023-01-19 13:26 Normal [facility] DRUG SCREEN RAPID (URINE)on 01-19-2023 AMP Negative Normal NEGATIVE [facility] Comment on above: Performed By: #### D RUGRPD ####[facility] [address] [place] [address]Dr. Nicky Simmons BAR Negative Normal NEGATIVE [facility] Comment on above: Performed By: #### D RUGRPD ####[facility] [address] [place] [address]Dr. Nicky Simmons BUP Negative Normal NEGATIVE [facility] Comment on above: Performed By: #### D RUGRPD ####[facility] [address] [place], [place] [address]Dr. Nicky Simmons BZO Negative Normal NEGATIVE [facility] Comment on above: Performed By: #### D RUGRPD ####[facility] [address] [place], [place] [address]Dr. Nicky Simmons DON Negative Normal NEGATIVE [facility] Comment on above: Performed By: #### D RUGRPD ####[facility] [address] [place], [place] [address]Dr. Nicky Simmons CUT-OFFS SEE BELOW Normal [facility] Comment on above: Result Comment: AMP (Amphetamine): 500ng/mL, BAR (Barbituates): 200 ng/mL, BZO (Benzodiazepines): 150 ng/mL, BUP (Buprenorphine): 10 ng/mL, DON (Cocaine): 150 ng/mL, mAMP (Methamphetamine): 500 ng/mL, MTD (Methadone): 200 ng/mL, OPI (Opiates): 100 ng/mL, OXY (Oxycodone): 100 ng/mL, PCP (Phencyclidine): 25 ng/mL, PPX (Propoxyphene): 300 ng/mL, THC (Cannabinoids): 50 ng/mL, TCA (Trycyclic Antidepressants): 300 ng/mL Performed By: #### D RUGRPD ####[facility] [address] [place], [place] [address]Dr. Nicky Simmons DRUG CUT HEADER DRUG CLASS TEST SYSTEM CUT-OFF CONCENTRATIONS ARE FOLLOWS: Normal [facility] Comment on above: Performed By: #### D RUGRPD ####[facility] [address] [place], [place] [address]Dr. Nicky Simmons mAMP Negative Normal NEGATIVE [facility] Comment on above: Performed By: #### D RUGRPD ####[facility] [address] [place] [address]Dr. Nicky Troy MTD Negative Normal NEGATIVE [facility] Comment on above: Performed By: #### D RUGRPD ####[facility] [address] [place] [address]Dr. Nicky Simmons OPI Positive Abnormal NEGATIVE [facility] Comment on above: Performed By: #### D RUGRPD ####[facility] [address] [place] [address]Dr. Nicky Simmons OXY Negative Normal NEGATIVE [facility] Comment on above: Performed By: #### D RUGRPD ####[facility] [address] [place] [address]Dr. Nicky Simmons PCP Negative Normal NEGATIVE [facility] Comment on above: Performed By: #### D RUGRPD ####[facility] [address] [place] [address]Dr. Nicky Simmons PPX Negative Normal NEGATIVE [facility] Comment on above: Performed By: #### D RUGRPD ####[facility] [address] [place] [address]Dr. Dulceuday Simmons TCA Negative Normal NEGATIVE [facility] Comment on above: Performed By: #### D RUGRPD ####[facility] [address] [place] [address]Dr. Nicky Simmons THC Positive Abnormal NEGATIVE [facility] Comment on above: Performed By: #### D RUGRPD ####[facility] [address] [place] [address]Dr. Nicky Simmons ER URINE PROFILEon 3 Bilirubin Ql (U) Negative Normal NEGATIVE [facility] Comment on above: Performed By: #### C BC #### [facility] [address] [address] [address] Nicky Simmons Clarity (U) CLEAR Normal CLEAR [facility] Comment on above: Performed By: #### C BC #### [facility] [address] [place] [address] Dr. Nicky Simmons Color (U) LT. YELLOW Normal YELLOW [facility] Comment on above: Performed By: #### C BC #### [facility] [address] [place] [address] Dr. Nicky NORTON A micrscopic examination will be performed if indicated. Normal [facility] Comment on above: Performed By: #### C BC #### [facility] [address] [place] [address] Dr. Nicky Simmons Glucose Ql (U) Negative Normal NEGATIVE [facility] Comment on above: Performed By: #### C BC #### [facility] [address] [place] [address] Dr. Nicky Simmons Hemoglobin Ql (U) Negative Normal NEGATIVE [facility] Comment on above: Performed By: #### C BC #### [facility] [address] [place] [address] Dr. Nicky Simmons Ketones Ql (U) Negative Normal NEGATIVE [facility] Comment on above: Performed By: #### C BC #### [facility] [address] [place] [address] Dr. Nicky Simmons LEUKOCYTES SMALL Abnormal NEGATIVE [facility] Comment on above: Performed By: #### C BC #### [facility] [address] [place] [address] Dr. Nicky Simmons Nitrite Ql (U) Negative Normal NEGATIVE [facility] Comment on above: Performed By: #### C BC #### [facility] [address] [place] [address] Dr. Nicky Simmons pH (U) 6.5 [pH] Normal 5-9 [facility] Comment on above: Performed By: #### C BC #### [facility] [address] [place] [address] Dr. Nicky Simmons SPEC GRAVITY <=1.005 Abnormal 1.005-<=1.025 [facility] Comment on above: Performed By: #### C BC #### [facility] [address] [place] [address] Dr. Nicky Simmons UA PROTEIN Negative Normal NEGATIVE/ TRACE [facility] Comment on above: Performed By: #### C BC #### [facility] [address] [address] [address] Nicky Simmons UR MICRO IND INDICATED Normal [facility] Comment on above: Performed By: #### C BC #### [facility] [address] [address] Dr. Nicky Simmons Urobilinogen Qn (U) 0.2 {Yan'U}/dL Normal 0.2 - 1. 0 [facility] Comment on above: Performed By: #### C BC #### [facility] [address] [address] [address] Nicky Simmons LIPASEon 01-19-2023 Lipase [Catalytic activity/Vol] 46.0 U/L Critically low 73.0-393.0 [facility] Comment on above: Performed By: #### A JUANI LIPA, CMP ####[facility] [address] [address]DrBella Simmons PROF 14(COMP METB)on 023 Albumin [Mass/Vol] 3.1 g/dL Critically low 3.4-5.0 [facility] Comment on above: Performed By: #### A JUANI LIPA, CMP ####[facility] [address] [address]DrBella Simmons Albumin/Globulin [Mass ratio] 0.8 {ratio} Normal [facility] Comment on above: Performed By: #### A MY, LIPA, CMP ####[facility] [address] [address]Dr. Nicky Simmons ALP [Catalytic activity/Vol] 102 U/L Normal 46-116 [facility] Comment on above: Performed By: #### A MY, LIPA, CMP ####[facility] [address] [address]Dr. Nicky Simmons ALT [Catalytic activity/Vol] 64 U/L Critically high 14-59 [facility] Comment on above: Performed By: #### A MY, LIPA, CMP ####[facility] [address] [address]Dr. Nicky Simmons Anion gap [Moles/Vol] 15.6 mmol/L Normal [facility] Comment on above: Performed By: #### A MY, LIPA, CMP ####[facility] [address] [address]Dr. Nicky Simmons AST [Catalytic activity/Vol] 28 U/L Normal 15-37 [facility] Comment on above: Performed By: #### A MY, LIPA, CMP ####[facility] [address] [address]Dr. Nicky Simmons Bilirubin [Mass/Vol] 0.4 mg/dL Normal 0.2-1.0 [facility] Comment on above: Performed By: #### A MY, LIPA, CMP ####[facility] [address] [place], [place] [address]Dr. Nicky Simmons Calcium [Mass/Vol] 8.9 mg/dL Normal 8.5-10.1 [facility] Comment on above: Performed By: #### A MY, LIPA, CMP ####[facility] [address] [place], [place] [address]Dr. Nicky Simmons Chloride [Moles/Vol] 105 mmol/L Normal 98-107 [facility] Comment on above: Performed By: #### A MY, LIPA, CMP ####[facility] [address] [place], [place] [address]Dr. Nicky Simmons CO2 [Moles/Vol] 23.0 mmol/L Normal 21.0-32.0 [facility] Comment on above: Performed By: #### A MY, LIPA, CMP ####[facility] [address] [place], [place] [address]Dr. Nicky Simmons Creatinine [Mass/Vol] 0.71 mg/dL Normal 0.55-1.02 [facility] Comment on above: Performed By: #### A MY, LIPA, CMP ####[facility] [address] [place], [place] [address]Dr. Yilan Simmons EGFR-AF COSTA R[place] >60 Normal >=60 [facility] Comment on above: Performed By: #### A JUANI LIPA, CMP ####[facility] [address] [address]Dr. Nicky Simmons EGFR-NON AF [place] R[place] >60 Normal >=60 [facility] Comment on above: Performed By: #### A MY LIPA, CMP ####[facility] [address] [place], [place] [address]Dr. Nicky Simmons Globulin (S) [Mass/Vol] 4.0 g/dL Normal [facility] Comment on above: Performed By: #### A JUANI LIPA, CMP ####[facility] [address] [place], [place] [address]Dr. Nicky Simmons Glucose [Mass/Vol] 99 mg/dL Normal 74-106 [facility] Comment on above: Performed By: #### A JUANI LIPA, CMP ####[facility] [address] [place], [place] [address]Dr. Nicky Simmons Potassium [Moles/Vol] 3.6 mmol/L Normal 3.5-5.1 [facility] Comment on above: Performed By: #### A JUANI LIPA, CMP ####[facility] [address] [place], [place] [address]Dr. Nicky Simmons Protein [Mass/Vol] 7.1 g/dL Normal 6.4-8.2 [facility] Comment on above: Performed By: #### A MY LIPA, CMP ####[facility] [address] [place], [place] [address]Dr. Nicky Simmons Sodium [Moles/Vol] 140 mmol/L Normal 136-145 [facility] Comment on above: Performed By: #### A MY LIPA, CMP ####[facility] [address] [place], [place] [address]Dr. Nicky Simmons Urea nitrogen [Mass/Vol] 8.0 mg/dL Normal 7.0-18.0 [facility] Comment on above: Performed By: #### A MY LIPA, CMP ####[facility] [address] [id number]. Nicky Simmons Urea nitrogen/Creatinine [Mass ratio] 11.3 mg/mg Normal [facility] Comment on above: Performed By: #### A MY, ROMÁN, CMP ####[facility] [address] [place], [place] [address]MrDr. Nicky Simmons URINE MICROSCOPIC ONLYon BACTERIA TRACE Abnormal NONE SEEN [facility] Comment on above: Performed By: #### C BC #### [facility] [address] [address] [address] Nicky Simmons Bacteria identified Cx Nom (U) INDICATED Normal [facility] Comment on above: Performed By: #### C BC #### [facility] [address] [address] [address] Nicky Simmons CAST NONE SEEN Normal NONE SEEN [facility] Comment on above: Performed By: #### C BC #### [facility] [address] [place] [address] Dr. Nicky Simmons Crystals LM Nom (Urine sed) NONE SEEN Normal NONE SEEN [facility] Comment on above: Performed By: #### C BC #### [facility] [address] [place] [address] Dr. Nicky Simmons Epithelial cells LM Ql (Urine sed) FEW Abnormal NONE SEEN /RARE [facility] Comment on above: Performed By: #### C BC #### [facility] [address] [address] [address] Nicky Simmons MUCOUS NONE SEEN Normal NONE SEEN [facility] Comment on above: Performed By: #### C BC #### [facility] [address] [place] [address] Dr. Nicky Simmons RBC 0-2 Normal 0-2 [facility] Comment on above: Performed By: #### C BC #### [facility] [address] [place] [address] Dr. Nicky Simmosn WBC 2-5 Abnormal NONE SEEN [facility] Comment on above: Performed By: #### C BC #### [facility] [address] [place] [address] Dr. Nicky Simmons XR CHEST 1 Von 01-11-2023 XR CHEST 1 V EXAMINATION: XR CHES T 1 V HISTORY: Cough COMPARISON: Chest x-ray 09/06/2022 TECHNIQUE: Portable chest FINDINGS: The lung parenchyma is free of consolidation or infiltrate. No pneumothorax or pleural effusion. The cardiac, mediastinal and hilar contours are normal. The visualized osseous structures exhibit no gross abnormality. IMPRESSION: No acute cardiopulmonary abnormality. Electronically authenticated by: SREE MCCLENDON Date: 2023-01-11 21:21 Normal [facility] CBC AUTO DIFFon 12-18-2022 BASO # 0.0 103/ul Normal 0.0-0.1 [facility] Comment on above: Performed By: #### C BC #### [facility] [address] [place] [address] Dr. Nicky Simmons Basophils/100 WBC (Bld) 0.3 % Normal 0.2-2.0 [facility] Comment on above: Performed By: #### C BC #### [facility] [address] [place] [address] Dr. Nicky Simmons EO # 0.2 103/ul Normal 0.0-0.7 [facility] Comment on above: Performed By: #### C BC #### [facility] [address] [place] [address] Dr. Nicky Simmons Eosinophils/100 WBC (Bld) 1.4 % Normal 0.9-7.0 [facility] Comment on above: Performed By: #### C BC #### [facility] [address] [place] [address] Dr. Nicky Simmons Erythrocyte distribution width (RBC) [Ratio] 13.0 % Normal 11.0-15.0 [facility] Comment on above: Performed By: #### C BC #### [facility] [address] [place] [address] Dr. Nicky Simmons Hematocrit (Bld) [Volume fraction] 40.3 % Normal 36.0-48.0 [facility] Comment on above: Performed By: #### C BC #### [facility] [address] [place] [address] Dr. Nicky Simmons Hemoglobin (Bld) [Mass/Vol] 13.5 g/dL Normal 12.0-16.0 [facility] Comment on above: Performed By: #### C BC #### [facility] [address] [place] [address] Dr. Nicky Simmons IG # 0.03 10e3/ul Normal 0.00-0.03 [facility] Comment on above: Performed By: #### C BC #### [facility] [address] [place] [address] Dr. Nicky Simmons IG % 0.3 % Normal 0.0-0.5 [facility] Comment on above: Performed By: #### C BC #### [facility] [address] [place] [address] Dr. Nicky Simmons LYMPH # 3.3 103/ul Normal 1.2-3.8 [facility] Comment on above: Performed By: #### C BC #### [facility] [address] [place] [address] Dr. Nicky Simmons Lymphocytes/100 WBC (Bld) 27.9 % Normal 20.5-60.0 [facility] Comment on above: Performed By: #### C BC #### [facility] [address] [place] [address] Dr. Nicky Simmons MANUAL DIFF REQ NO Normal [facility] Comment on above: Performed By: #### C BC #### [facility] [address] [place] [address] Dr. Nicky Simmons MCH (RBC) [Entitic mass] 29.3 pg Normal 26.7-34.0 [facility] Comment on above: Performed By: #### C BC #### [facility] [address] [place] [address] Dr. Nicky Simmons MCHC (RBC) [Mass/Vol] 33.5 g/dL Normal 29.9-35.2 [facility] Comment on above: Performed By: #### C BC #### [facility] [address] [place] [address] Dr. Nicky Simmons MCV (RBC) [Entitic vol] 87.4 fL Normal 81.0-99.0 [facility] Comment on above: Performed By: #### C BC #### [facility] [address] [place] [address] Dr. Nicky Simmons MONO # 0.7 103/ul Normal 0.3-0.8 [facility] Comment on above: Performed By: #### C BC #### [facility] [address] [place] [address] Dr. Nicky Simmons Monocytes/100 WBC (Bld) 6.0 % Normal 1.7-12.0 [facility] Comment on above: Performed By: #### C BC #### [facility] [address] [place] [address] Dr. Nicky Simmons NEUT # 7.6 103/ul Critically high 1.4-6.5 [facility] Comment on above: Performed By: #### C BC #### [facility] [address] [place] [address] Dr. Nicky Simmons Neutrophils/100 WBC (Bld) 64.1 % Normal 43.0-75.0 [facility] Comment on above: Performed By: #### C BC #### [facility] [address] [place] [address] Dr. Nicky Simmons Platelet mean volume (Bld) [Entitic vol] 9.1 fL Critically low 9.5-13.5 [facility] Comment on above: Performed By: #### C BC #### [facility] [address] [place] [address] Dr. Nicky Simmons PLT 381 103/ul Normal 150-450 [facility] Comment on above: Performed By: #### C BC #### [facility] [address] [place] [address] Dr. Nicky Simmons RBC 4.61 106/ul Normal 4.20-5.40 [facility] Comment on above: Performed By: #### C BC #### [facility] [address] [place] [address] Dr. Nicky Simmons WBC 11.9 103/ul Critically high 4.0-11.0 [facility] Comment on above: Performed By: #### C BC #### [facility] [address] [place] [address] Dr. Nicky Simmons PROTIMEon 12-18-2022 INR Coag (PPP) [Relative time] {INR} Normal [facility] Comment on above: Performed By: #### I NFLUAB #### [facility] [address] [place] [address] Dr. Nicky Simmons INR GUIDELINES SEE BELOW Normal [facility] Comment on above: Result Comment: LEOPOLDO RED INR: 2.0 - 3.0 CONDITIONS NOT LISTED BELOW 2.5 - 3.5 FOR PROSTHETIC HEART VALVE REPLACEMENT 2.5 - 3.5 RECURRENT THROMBOSIS Performed By: #### I NFLUAB #### [facility] [address] [place] [address] Dr. Nicky Simmons PT Coag (PPP) [Time] 9.7 s Normal 9.0-11.6 [facility] Comment on above: Performed By: #### I NFLUAB #### [facility] [address] [place] [address] Dr. Nicky Simmons PTTon 12-18-2022 aPTT Coag (Bld) [Time] 27.9 s Normal 22.3-36.2 [facility] Comment on above: Performed By: #### I NFLUAB #### [facility] [address] [place] [address] Dr. Nicky Simmons Cov[facility]-19 PCR [facility]on 11-03 SARS-CoV-2 (COVID-19) RNA GOKUL+probe Ql (Unsp spec) Not detected Normal NOT DETECTED [facility] Comment on above: Result Comment: When diagnostic testing is negative, the possibility of a false negative should be considered in the context of a patient's recent exposures and the presence of clinical signs and symptoms consistent with SARS-CoV-2. This test is not yet approved or cleared by the [place] FDA. When there are no FDA-approved or cleared tests available, and other criteria are met, FDA can make tests available under an emergency access mechanism called an Emergency Use Authorization (EUA). The EUA for this test is supported by the [employer] Marker of Health and Human Service's declaration that circumstances exist to justify the emergency use of in vitro diagnostics for the detection and/or diagnosis of the virus that causes COVID-19. This EUA will remain in effect for the duration of the COVID-19 declaration justifying emergency of IVDs, unless it is terminated or revoked by the FDA (after which the test may no longer be used). Performed By: #### C VDTBH #### [facility] [address] [place] [address] Dr. Nicky Simmons GROUP A STREP CULTUREon 11-03 S. pyogenes Ag Ql (Unsp spec) Culture Observations: NEGATIVE FOR GROUP A STREPTOCOCCUS. Normal [facility] Comment on above: Performed By: #### C BC #### [facility] [address] [place] [address] Dr. Nicky Simmons INFLUENZA A AND B AGon 11-13 INFLUENZA A AG Negative Normal NEGATIVE SEE COMMENT [facility] Comment on above: Performed By: #### I NFLUAB #### [facility] [address] [place] [address] Dr. Nicky Simmons INFLUENZA B AG Negative Normal NEGATIVE SEE COMMENT [facility] Comment on above: Performed By: #### I NFLUAB #### [facility] [address] [place] [address] Dr. Nicky Simmons STREPT SCREENon 11-13-2022 STREP SCREEN A Negative Normal NEGATIVE [facility] Comment on above: Performed By: #### C BC #### [facility] [address] [place] [address] Dr. Nicky Simmons GROUP A STREP CULTUREon 10-07 S. pyogenes Ag Ql (Unsp spec) Culture Observations: NEGATIVE FOR GROUP A STREPTOCOCCUS. Normal [facility] Comment on above: Performed By: #### C BC #### [facility] [address] [place] [address] Dr. Nicky Simmons STREPT SCREENon 11-02-2022 STREP SCREEN A Negative Normal NEGATIVE [facility] Comment on above: Performed By: #### C BC #### [facility] [address] [place] [address] Dr. Nicky Simmons CBC AUTO DIFFon 10-22-2022 BASO # 0.0 103/ul Normal 0.0-0.1 [facility] Comment on above: Performed By: #### C BC #### [facility] [address] [address] [address] Nicky Simmons Basophils/100 WBC (Bld) 0.3 % Normal 0.2-2.0 [facility] Comment on above: Performed By: #### C BC #### [facility] [address] [address] [address] Nicky Simmons EO # 0.2 103/ul Normal 0.0-0.7 [facility] Comment on above: Performed By: #### C BC #### [facility] [address] [place] [address] Dr. Nicky Simmons Eosinophils/100 WBC (Bld) 1.2 % Normal 0.9-7.0 [facility] Comment on above: Performed By: #### C BC #### [facility] [address] [place] [address] Dr. Nicky Simmons Erythrocyte distribution width (RBC) [Ratio] 12.9 % Normal 11.0-15.0 [facility] Comment on above: Performed By: #### C BC #### [facility] [address] [place] [address] Dr. Nicky Simmons Hematocrit (Bld) [Volume fraction] 45.3 % Normal 36.0-48.0 [facility] Comment on above: Performed By: #### C BC #### [facility] [address] [place] [address] Dr. Nicky Simmons Hemoglobin (Bld) [Mass/Vol] 15.1 g/dL Normal 12.0-16.0 [facility] Comment on above: Performed By: #### C BC #### [facility] [address] [place] [address] Dr. Nicky Simmons IG # 0.07 10e3/ul Critically high 0.00-0.03 [facility] Comment on above: Performed By: #### C BC #### [facility] [address] [place] [address] Dr. Nicky Simmons IG % 0.4 % Normal 0.0-0.5 [facility] Comment on above: Performed By: #### C BC #### [facility] [address] [place] [address] Dr. Nicky Simmons LYMPH # 1.1 103/ul Critically low 1.2-3.8 [facility] Comment on above: Performed By: #### C BC #### [facility] [address] [place] [address] Dr. Nicky Simmons Lymphocytes/100 WBC (Bld) 7.1 % Critically low 20.5-60.0 [facility] Comment on above: Performed By: #### C BC #### [facility] [address] [place] [address] Dr. Nicky Simmons MANUAL DIFF REQ NO Normal [facility] Comment on above: Performed By: #### C BC #### [facility] [address] [place] [address] Dr. Nicky Simmons MCH (RBC) [Entitic mass] 28.8 pg Normal 26.7-34.0 [facility] Comment on above: Performed By: #### C BC #### [facility] [address] [place] [address] Dr. Nicky Simmons MCHC (RBC) [Mass/Vol] 33.3 g/dL Normal 29.9-35.2 [facility] Comment on above: Performed By: #### C BC #### [facility] [address] [place] [address] Dr. Nicky Simmons MCV (RBC) [Entitic vol] 86.3 fL Normal 81.0-99.0 [facility] Comment on above: Performed By: #### C BC #### [facility] [address] [place] [address] Dr. Nicky Simmons MONO # 0.4 103/ul Normal 0.3-0.8 [facility] Comment on above: Performed By: #### C BC #### [facility] [address] [place] [address] Dr. Nicyk Simmons Monocytes/100 WBC (Bld) 2.6 % Normal 1.7-12.0 [facility] Comment on above: Performed By: #### C BC #### [facility] [address] [place] [address] Dr. Nicky Simmons NEUT # 14.0 103/ul Critically high 1.4-6.5 [facility] Comment on above: Performed By: #### C BC #### [facility] [address] [place] [address] Dr. Nicky Simmons Neutrophils/100 WBC (Bld) 88.4 % Critically high 43.0-75.0 [facility] Comment on above: Performed By: #### C BC #### [facility] [address] [place] [address] Dr. Nicky Simmons Platelet mean volume (Bld) [Entitic vol] 9.4 fL Critically low 9.5-13.5 [facility] Comment on above: Performed By: #### C BC #### [facility] [address] [place] [address] Dr. Nicky Simmons PLT 399 103/ul Normal 150-450 [facility] Comment on above: Performed By: #### C BC #### [facility] [address] [place] [address] Dr. Nicky Simmons RBC 5.25 106/ul Normal 4.20-5.40 [facility] Comment on above: Performed By: #### C BC #### [facility] [address] [place] [address] Dr. Nicky Simmons WBC 15.9 103/ul Critically high 4.0-11.0 [facility] Comment on above: Performed By: #### C BC #### [facility] [address] [place] [address] ABD/PELVIS WO CONon 10-22 CT ABD/PELVIS WO CON EXAMINATION: CT ABD/PELVIS WO CON, 10/21/2022 11:30 PM EST HISTORY: UNSPECIFIED ABDOMINAL PAIN COMPARISON: None. TECHNIQUE: CT scan of the abdomen and pelvis was performed without IV contrast. Multiplanar reformats were generated. CT dose reduction technique was used, including Automated Exposure Control. FINDINGS: Exam is limited by lack of contrast. FINDINGS: Lower thorax: Lung bases are clear. Small hiatal hernia with thickened appearing wall. Liver: Unremarkable. Biliary: The gallbladder is surgically absent. No abnormal biliary dilatation seen. Spleen: Unremarkable. Pancreas: Unremarkable. Adrenals: Unremarkable. Kidneys and bladder: Unremarkable. GI Tract: Stomach is nondistended. There are a few nondistended fluid-filled small bowel loops up to 2.5 cm diameter. Some fluid contents are suggested in the right colon. Status post appendectomy. Lymph Nodes: No lymphadenopathy. There are some nonenlarged mesenteric nodes. Mesentery/peritoneum: No free fluid or free air. Retroperitoneum: No mass or fluid collection. Vasculature: No visible abdominal aortic or iliac artery aneurysm. Pelvis: No mass visible. Uterus and ovaries grossly unremarkable. Bones/Soft Tissues: No acute osseous abnormality. No significant soft tissue abnormality visualized. There is a small fat-containing umbilical region hernia. IMPRESSION: 1. Fluid-filled loops of nondistended small bowel and some fluid contents suggested in the right colon. Correlate for possible enterocolitis. 2. No evidence of bowel obstruction or free air. Status post appendectomy. 3. Small hiatal hernia with thickened appearance of the wall. Considerations include esophagitis with neoplasm not excluded. Consider outpatient upper GI and/or endoscopy. Electronically authenticated by: JUDY CONKLIN Date: 2022-10-22 00:08 Normal [facility] ER URINE PROFILEon 3 Bilirubin Ql (U) SMALL Abnormal NEGATIVE [facility] Comment on above: Performed By: #### E ROBERT PREGU ####[facility] [address] [address]DrBella Simmons Clarity (U) CLEAR Normal CLEAR [facility] Comment on above: Performed By: #### E ROBERT PREGU ####[facility] [address] [address]DrBella Simmons Color (U) DK. YELLOW Normal YELLOW [facility] Comment on above: Performed By: #### E ROBERT PREGU ####[facility] [address] [id number] LAWRENCED A micrscopic examination will be performed if indicated. Normal [facility] Comment on above: Performed By: #### E RUR, PREGU ####[facility] [address] [place], [place] [address]Dr. Nicky Simmons Glucose Ql (U) Negative Normal NEGATIVE [facility] Comment on above: Performed By: #### E RUR, PREGU ####[facility] [address] [place], [place] [address]Dr. Nicky Simmons Hemoglobin Ql (U) Negative Normal NEGATIVE [facility] Comment on above: Performed By: #### E RUR, PREGU ####[facility] Avdcgcvtq[address] [place], [place] [address]Dr. Nicky Simmons Ketones Ql (U) 15 mg/dl Abnormal NEGATIVE [facility] Comment on above: Performed By: #### E RUR, PREGU ####[facility] M[address]mf[address] [place], [place] [address]Dr. Nicky Simmons LEUKOCYTES Negative Normal NEGATIVE [facility] Comment on above: Performed By: #### E RUR, PREGU ####[facility] Anfcdagafs[address] [place], [place] [address]Dr. Nicky Simmons Nitrite Ql (U) Negative Normal NEGATIVE [facility] Comment on above: Performed By: #### E RUR, PREGU ####[facility] Pq[address]fswx[address] [place], [place] [address]Dr. Nicky Simmons pH (U) 5.0 [pH] Normal 5-9 [facility] Comment on above: Performed By: #### E RUR, PREGU ####[facility] Qqfpmfvxfy[address] [place], [place] [address]Dr. Nicky Simmons SPEC GRAVITY >=1.030 Abnormal 1.005-<=1.025 [facility] Comment on above: Performed By: #### E RUR, PREGU ####[facility] Saalsog[address] [place], [place] [address]Dr. Nicky Simmons UA PROTEIN TRACE Normal NEGATIVE/ TRACE [facility] Comment on above: Performed By: #### E RUR, PREGU ####[facility] [address] [address]Dr. Nicky Simmons UR MICRO IND NOT INDICATED Normal [facility] Comment on above: Performed By: #### E RUR, PREGU ####[facility] [address] [address]Dr. Nicky Simmons Urobilinogen Qn (U) 0.2 {Yan'U}/dL Normal 0.2 - 1. 0 [facility] Comment on above: Performed By: #### E RUR, PREGU ####[facility] [address] [address]Dr. Nicky Simmons LIPASEon 10-22-2022 Lipase [Catalytic activity/Vol] 56.0 U/L Critically low 73.0-393.0 [facility] Comment on above: Performed By: #### L IPA ####[facility] Ykgoclct[address] [place], [place] [address]Dr. Nicky Simmons PREG HCG QUALon 10-22-2022 , QUAL Negative Normal NEGATIVE [facility] Comment on above: Performed By: #### P REG ####[facility] [address] [address]Dr. Nikcy Simmons URon 10-22-2022 , QUAL Negative Normal NEGATIVE [facility] Comment on above: Performed By: #### E RUR, PREGU ####[facility] [address] [address]Dr. Nicky Simmons PROF 14(COMP METB)on 023 Albumin [Mass/Vol] 3.7 g/dL Normal 3.4-5.0 [facility] Comment on above: Performed By: #### I NFLUAB #### [facility] [address] [address] [address] Nicky Simmons Albumin/Globulin [Mass ratio] 0.9 {ratio} Normal [facility] Comment on above: Performed By: #### I NFLUAB #### [facility] [address] [address] [address] Nicky Simmons ALP [Catalytic activity/Vol] 128 U/L Critically high 46-116 [facility] Comment on above: Performed By: #### I NFLUAB #### [facility] [address] [address] [address] Nicky Simmons ALT [Catalytic activity/Vol] 38 U/L Normal 14-59 [facility] Comment on above: Performed By: #### I NFLUAB #### [facility] [address] [address] [address] Nicky Simmons Anion gap [Moles/Vol] 17.1 mmol/L Normal [facility] Comment on above: Performed By: #### I NFLUAB #### [facility] [address] [address] [address] Nicky Simmons AST [Catalytic activity/Vol] 27 U/L Normal 15-37 [facility] Comment on above: Performed By: #### I NFLUAB #### [facility] [address] [address] [address] Nicky Simmons Bilirubin [Mass/Vol] 0.5 mg/dL Normal 0.2-1.0 [facility] Comment on above: Performed By: #### I NFLUAB #### [facility] [address] [address] [address] Nicky Simmons Calcium [Mass/Vol] 8.9 mg/dL Normal 8.5-10.1 [facility] Comment on above: Performed By: #### I NFLUAB #### [facility] [address] [address] [address] Nicky Simmons Chloride [Moles/Vol] 102 mmol/L Normal 98-107 [facility] Comment on above: Performed By: #### I NFLUAB #### [facility] [address] [address] [address] Nicky Simmons CO2 [Moles/Vol] 21.9 mmol/L Normal 21.0-32.0 [facility] Comment on above: Performed By: #### I NFLUAB #### [facility] [address] [address] [address] Nicky Simmons Creatinine [Mass/Vol] 0.77 mg/dL Normal 0.55-1.02 [facility] Comment on above: Performed By: #### I NFLUAB #### [facility] [address] [address] [address] Nicky Simmons EGFR-AF COSTA RICAN >60 Normal >=60 [facility] Comment on above: Performed By: #### I NFLUAB #### [facility] [address] [address] [address] Nicky Simmons EGFR-NON AF COSTA RICAN >60 Normal >=60 [facility] Comment on above: Performed By: #### I NFLUAB #### [facility] [address] [address] [address] Nicky Simmons Globulin (S) [Mass/Vol] 3.9 g/dL Normal [facility] Comment on above: Performed By: #### I NFLUAB #### [facility] [address] [address] [address] Nicky Simmons Glucose [Mass/Vol] 105 mg/dL Normal 74-106 [facility] Comment on above: Performed By: #### I NFLUAB #### [facility] [address] [address] [address] Nicky Simmons Potassium [Moles/Vol] 4.0 mmol/L Normal 3.5-5.1 [facility] Comment on above: Performed By: #### I NFLUAB #### [facility] [address] [address] [address] Nicky Simmons Protein [Mass/Vol] 7.6 g/dL Normal 6.4-8.2 [facility] Comment on above: Performed By: #### I NFLUAB #### [facility] [address] [address] [address] Nicky Simmons Sodium [Moles/Vol] 137 mmol/L Normal 136-145 [facility] Comment on above: Performed By: #### I NFLUAB #### [facility] [address] [address] [address] Nicky Simmons Urea nitrogen [Mass/Vol] 12.0 mg/dL Normal 7.0-18.0 [facility] Comment on above: Performed By: #### I NFLUAB #### [facility] [address] [address] [address] Nicky Simmons Urea nitrogen/Creatinine [Mass ratio] 15.6 mg/mg Normal [facility] Comment on above: Performed By: #### I NFLUAB #### [facility] [address] [address] [address] Nicky Simmons CBC AUTO DIFFon 09-06-2022 BASO # 0.1 103/ul Normal 0.0-0.1 [facility] Comment on above: Performed By: #### C BC ####[facility] [address] [address]DrBella Simmons Basophils/100 WBC (Bld) 0.5 % Normal 0.2-2.0 [facility] Comment on above: Performed By: #### C BC ####[facility] [address] [address]Dr. Nicky Simmons EO # 0.3 103/ul Normal 0.0-0.7 [facility] Comment on above: Performed By: #### C BC ####[facility] [address] [address]Dr. Nicky Simmons Eosinophils/100 WBC (Bld) 2.4 % Normal 0.9-7.0 [facility] Comment on above: Performed By: #### C BC ####[facility] [address] [address]DrBella Simmons Erythrocyte distribution width (RBC) [Ratio] 12.7 % Normal 11.0-15.0 [facility] Comment on above: Performed By: #### C BC ####[facility] [address] [address]DrBella Simmons Hematocrit (Bld) [Volume fraction] 37.5 % Normal 36.0-48.0 [facility] Comment on above: Performed By: #### C BC ####[facility] [address] [address]DrBlela Simmons Hemoglobin (Bld) [Mass/Vol] 12.6 g/dL Normal 12.0-16.0 [facility] Comment on above: Performed By: #### C BC ####[facility] [address] [address]DrBella Simmons IG # 0.05 10e3/ul Critically high 0.00-0.03 [facility] Comment on above: Performed By: #### C BC ####[facility] [address] [place] [address]DrBella Simmons IG % 0.4 % Normal 0.0-0.5 [facility] Comment on above: Performed By: #### C BC ####[facility] [address] [place] [address]DrBella Simmons LYMPH # 2.9 103/ul Normal 1.2-3.8 [facility] Comment on above: Performed By: #### C BC ####[facility] [address] [place] [address]DrBella Simmons Lymphocytes/100 WBC (Bld) 25.2 % Normal 20.5-60.0 [facility] Comment on above: Performed By: #### C BC ####[facility] [address] [place] [address]DrBella Simmons MANUAL DIFF REQ NO Normal [facility] Comment on above: Performed By: #### C BC ####[facility] [address] [id number] Simmons MCH (RBC) [Entitic mass] 29.4 pg Normal 26.7-34.0 [facility] Comment on above: Performed By: #### C BC ####[facility] [address] [id number] Simmons MCHC (RBC) [Mass/Vol] 33.6 g/dL Normal 29.9-35.2 [facility] Comment on above: Performed By: #### C BC ####[facility] [address] [id number] Simmons MCV (RBC) [Entitic vol] 87.4 fL Normal 81.0-99.0 [facility] Comment on above: Performed By: #### C BC ####[facility] [address] [place] [id number]. Nicky Simmons MONO # 0.7 103/ul Normal 0.3-0.8 [facility] Comment on above: Performed By: #### C BC ####[facility] [address] [place] [id number]. Nicky Simmons Monocytes/100 WBC (Bld) 6.4 % Normal 1.7-12.0 [facility] Comment on above: Performed By: #### C BC ####[facility] [address] [place] [id number]. Nicky Simmons NEUT # 7.5 103/ul Critically high 1.4-6.5 [facility] Comment on above: Performed By: #### C BC ####[facility] [address] [place] [address]Dr. Nicky Simmons Neutrophils/100 WBC (Bld) 65.1 % Normal 43.0-75.0 [facility] Comment on above: Performed By: #### C BC ####[facility] [address] [place] [id number]. Nicky Simmons Platelet mean volume (Bld) [Entitic vol] 9.1 fL Critically low 9.5-13.5 [facility] Comment on above: Performed By: #### C BC ####[facility] [address] [place] [id number]. Nicky Simmons PLT 380 103/ul Normal 150-450 [facility] Comment on above: Performed By: #### C BC ####[facility] [address] [place] [id number]. Nicky Simmons RBC 4.29 106/ul Normal 4.20-5.40 [facility] Comment on above: Performed By: #### C BC ####[facility] [address] [place] [id number]. Nicky Simmons WBC 11.5 103/ul Critically high 4.0-11.0 [facility] Comment on above: Performed By: #### C ####[facility] [address] [place], [place] [address]XqBella Simmons CTA CHEST WO W CONon 023 CTA CHEST WO W CON EXAMINATION: CTA CHEST WO W CON HISTORY: Severe chest pain. Shortness of breath. Elevated D-dimer. COMPARISON: None. TECHNIQUE: CT angiography of the pulmonary arteries following the administration of intravenous contrast. Coronal and sagittal MIP (maximum intensity projection) images were performed. Dose reduction techniques were achieved by using automated exposure control and/or adjustment of mA and/or kV according to patient size and/or use of iterative reconstruction technique. FINDINGS: No evidence of pulmonary arterial embolism. Mildly enlarged mediastinal and bilateral hilar lymph nodes, the largest is an aorticopulmonary window mediastinal lymph node measuring 2.8 x 1.6 cm. Left apical 1.3 cm soft tissue nodule. Mild mosaic bilateral groundglass attenuation. Mild bilateral bronchial wall thickening. The pleural spaces are clear. IMPRESSION: 1. Indeterminate 1.3 cm left apical soft tissue nodule. There are mildly enlarged mediastinal and bilateral hilar lymph nodes. Consider follow-up PET/CT for further assessment. 2. Mild bilateral bronchial wall thickening consistent with inflammation. Bilateral mild mosaic groundglass attenuation indicating small airways inflammatory change. 3. No evidence of pulmonary arterial embolism. Electronically authenticated by: MUKUND MASSEY Date: 2022-09-06 19:34 Normal [facility] Covid-19 PCR (CVDTB)on SARS-CoV-2 (COVID-19) RNA GOKUL+probe Ql (Unsp spec) Not detected Normal NOT DETECTED [facility] Comment on above: Result Comment: This test is not yet approved or cleared by the [place] FDA. When there are no FDA-approved or cleared tests available, and other criteria are met, FDA can make tests available under an emergency access mechanism called an Emergency Use Authorization (EUA). The EUA for this test is supported by the [place] of Health and Human Service's (HHS's) declaration that circumstances exist to justify the emergency use of in vitro diagnostics for the detection and/or diagnosis of the virus that causes COVID-19. This EUA will remain in effect (meaning this test can be used) for the duration of the COVID-19 declaration justifying emergency of IVDs, unless it is terminated or revoked by FDA (after which the test may no longer be used). When diagnostic testing is negative, the possibility of a false negative should be considered in the context of a patient's recent exposures and the presence of clinical signs and symptoms consistent with SARS-CoV-2. Performed By: #### C VDTBH ####[facility] [address] [place] [phone]. Nicky Simmons D-DIMERon 09-06-2022 D-DIMER 0.62 mg/L FEU Critically high <=0.59 [facility] Comment on above: Performed By: #### D DIM ####[facility] [address] [place], [place] [address]DrBella Simmons D-DIMER COMMENTS SEE BELOW Normal [facility] Comment on above: Result Comment: Incr eases in D-Dimer concentration observed with thromboembolic events can be variable due to localization, size, and age of the thrombus. Therefore, a thromboembolic event cannot be diagnosed with certainty on the basis of the reference range. D-Dimers may also be elevated for a variety of disorders including: advanced age, , coronary disease, cancer, liver disease, infection, inflammation, hematoma, DIC, trauma, post-surgery, diabetes, thrombolytic or anticoagulant therapy, stress, and generalized hospitalization. Performed By: #### D DIM ####[facility] [address] [place], [place] [id number]. Nicky Simmons INFLUENZA A AND B AGon 09-06 [facility] SEE BELOW Normal [facility] Comment on above: Result Comment: Nega tive for Flu A protein angiten. Infection due to Flu A cannot be ruled out. Flu A angiten in the sample may be below the detection limit of the test. Performed By: #### C BC #### [facility] [address] [place], [place] [address] Dr. Nicky Simmons [facility] SEE BELOW Normal [facility] Comment on above: Result Comment: Nega tive for Flu B protein antigen. Infection due to Flu B cannot be ruled out. Flu B antigen in the sample may be below the detection limit of the test. Performed By: #### C BC #### [facility] [address] [place] [address] Dr. Nicky Simmons INFLUENZA A AG Negative Normal NEGATIVE SEE COMMENT [facility] Comment on above: Performed By: #### C BC #### [facility] [address] [place] [address] Dr. Nicky Simmons INFLUENZA B AG Negative Normal NEGATIVE SEE COMMENT [facility] Comment on above: Performed By: #### C BC #### [facility] [address] [place] [address] Dr. Nicky Smimons PROF CHEM 8 (BAS METB)on Anion gap [Moles/Vol] 12.7 mmol/L Normal [facility] Comment on above: Performed By: #### I NFLUAB #### [facility] [address] [place] [address] Dr. Nicky Simmons Calcium [Mass/Vol] 8.6 mg/dL Normal 8.5-10.1 [facility] Comment on above: Performed By: #### I NFLUAB #### [facility] [address] [place] [address] Dr. Nicky Simmons Chloride [Moles/Vol] 103 mmol/L Normal 98-107 [facility] Comment on above: Performed By: #### I NFLUAB #### [facility] [address] [place] [address] Dr. Nicky Simmons CO2 [Moles/Vol] 24.9 mmol/L Normal 21.0-32.0 [facility] Comment on above: Performed By: #### I NFLUAB #### [facility] [address] [place] [address] Dr. Nicky Simmons Creatinine [Mass/Vol] 0.86 mg/dL Normal 0.55-1.02 [facility] Comment on above: Performed By: #### I NFLUAB #### [facility] [address] [place] [address] Dr. Nicky Simmons EGFR-AF COSTA RICAN >60 Normal >=60 [facility] Comment on above: Performed By: #### I NFLUAB #### [facility] [address] [address] [address] Nicky Simmons EGFR-NON AF [place] RICAN >60 Normal >=60 [facility] Comment on above: Performed By: #### I NFLUAB #### [facility] [address] [address] [address] Nicky Simmons Glucose [Mass/Vol] 113 mg/dL Critically high 74-106 [facility] Comment on above: Performed By: #### I NFLUAB #### [facility] [address] [address] [address] Nicky Simmons Potassium [Moles/Vol] 3.6 mmol/L Normal 3.5-5.1 [facility] Comment on above: Performed By: #### I NFLUAB #### [facility] [address] [place] [address] Dr. Nicky Simmons Sodium [Moles/Vol] 137 mmol/L Normal 136-145 [facility] Comment on above: Performed By: #### I NFLUAB #### [facility] [address] [place] [address] Dr. Nicky Simmons Urea nitrogen [Mass/Vol] 9.0 mg/dL Normal 7.0-18.0 [facility] Comment on above: Performed By: #### I NFLUAB #### [facility] [address] [place] [address] Dr. Nicky Simmons Urea nitrogen/Creatinine [Mass ratio] 10.5 mg/mg Normal [facility] Comment on above: Performed By: #### I NFLUAB #### [facility] [address] [place] [address] Dr. Nicky Simmons XR CHEST 1 Von 09-06-2022 XR CHEST 1 V CHEST X-RAY, 1 VIEW HISTORY: Cough. COMPARISON: 05/17/2022. FINDINGS: The heart, angel, and mediastinum are unremarkable. The lungs are grossly clear. There are no pleural effusions. There is no pneumothorax. IMPRESSION: No evidence of acute cardiopulmonary disease. Electronically authenticated by: ESTHER MARY Date: 2022-09-06 18:22 Normal [facility] SARS-CoV-2 (COVID-19) RNA GOKUL+probe Ql (Unsp spec) Negative Normal Negative [facility] Comment on above: Order Comment: Healt hcare Worker?: N Result Comment: Testing for SARS-CoV-2 by RT-PCR This test was developed and its performance characteristics determined by [employer] ([place]) and validated at the [facility]. This test has not been FDA cleared or approved. This test has been authorized by FDA under an Emergency Use Authorization (EUA). This test has been validated in accordance with the FDA's Guidance Document (Policy for Diagnostics Testing in Laboratories Certified to Perform High Complexity Testing under CLIA prior to Emergency Use Authorization for Coronavirus Disease-2019 during the Public Health Emergency) issued on December 06, 2019. This test is only authorized for the duration of time the declaration that circumstances exist justifying the authorization of the emergency use of in vitro diagnostic tests for detection of SARS-CoV-2 virus and/or diagnosis of COVID-19 infection under section 564(b)(1) of the Act, 21 U.S.C. 360bbb-3(b)(1), unless the authorization is terminated or revoked sooner. PERFORMED BY: [place] [address] PATHOLOGIST [employer] ORI DARNELL M.D. Performed By: #### C OVID 19 [facility] #### [address] COVID-19 Positive/NegativeOr dered By: Christopher Mendez on 06-28-2022 SARS-CoV-2 (COVID-19) N gene GOKUL+probe Ql (Resp) Negative Negative [facility] Comment on above: Testing for SARS-CoV -2 by RT-PCRThis test was developed and its performance characteristics determined by [employer] ([place]) and validated at the [facility]. This test has not been FDA cleared or approved. This test has been authorized by FDA under an Emergency Use Authorization (EUA). This test has been validated in accordance with the FDA's Guidance Document (Policy for Diagnostics Testing in Laboratories Certified to Perform High Complexity Testing under CLIA prior to Emergency Use Authorization for Coronavirus Disease-2019 during the Public Health Emergency) issued on December 06, 2019. This test is only authorized for the duration of time the declaration that circumstances exist justifying the authorization of the emergency use of in vitro diagnostic tests for detection of SARS-CoV-2 virus and/or diagnosis of COVID-19 infection under section 564(b)(1) of the Act, 21 U.S.C. 360bbb-3(b)(1), unless the authorization is terminated or revoked sooner. GROUP A STREP CULTUREon 05-06 S. pyogenes Ag Ql (Unsp spec) Culture Observations: NEGATIVE FOR GROUP A STREPTOCOCCUS. Normal [facility] Comment on above: Performed By: #### S SCRN, GRASTCX #### [facility] [address] [place] [address] Dr. Nicky Simmons INFLUENZA A AND B AGon 05-17 INFLUENZA A AG Negative Normal NEGATIVE SEE COMMENT [facility] Comment on above: Performed By: #### C BC #### [facility] [address] [place] [address] Dr. Nicky Simmons INFLUENZA B AG Negative Normal NEGATIVE SEE COMMENT [facility] Comment on above: Performed By: #### C BC #### [facility] [address] [place] [address] Dr. Nicky Simmons INTERNAL CONTROLS Within Normal Limits Normal Wi thin Normal Limits [facility] Comment on above: Performed By: #### C BC #### [facility] [address] [place] [address] Dr. Nicky Simmons RESPIRATORY PANEL PLUSon Adenovirus Not detected Normal NOT DETECTED [facility] Comment on above: Performed By: #### R SPLUS ####[facility] [address] [place] [address]DrBella Simmons B. Parapertusis Not detected Normal NOT DETECTED [facility] Comment on above: Performed By: #### R SPLUS ####[facility] [address] [place] [address]DrBella Simmons B. Pertussis Not detected Normal NOT DETECTED [facility] Comment on above: Performed By: #### R SPLUS ####[facility] [address] [place] [address]Dr. Nicky Simmons Chlamydia Pneumoniae Not detected Normal NOT DETECTED [facility] Comment on above: Performed By: #### R SPLUS ####[facility] [address] [place], [place] [address]Dr. Nicky Simmons Coronavirus 229E Not detected Normal NOT DETECTED [facility] Comment on above: Performed By: #### R SPLUS ####[facility] Sea[address] [place], [place] [address]Dr. Nicky [facility] Coronavirus HKU1 Not detected Normal NOT DETECTED [facility] Comment on above: Performed By: #### R SPLUS ####[facility] [address] [place], [place] [address]Dr. Nicky Simmons Coronavirus NL63 Not detected Normal NOT DETECTED [facility] Comment on above: Performed By: #### R SPLUS ####[facility] Frpwtnf[address] [place], [place] [address]Dr. uday [facility] Coronavirus OC43 Not detected Normal NOT DETECTED [facility] Comment on above: Performed By: #### R SPLUS ####[facility] Gqjjmhybfe[address] [place], [place] [address]Dr. Nicky Simmons Influenza A H1 2009 Not detected Normal NOT DETECTED [facility] Comment on above: Performed By: #### R SPLUS ####[facility] Gtdsvtlljy[address] [place], [place] [address]Dr. Nicky Simmons Influenza A H3 Not detected Normal NOT DETECTED [facility] Comment on above: Performed By: #### R SPLUS ####[facility] Fluoeadjpd[address] [place], [place] [address]Dr. Yiuday Simmons Influenza B Not detected Normal NOT DETECTED [facility] Comment on above: Performed By: #### R SPLUS ####[facility] Mbzhkvcwoe[address] [place], [place] [address]Dr. Yiuday Simmons Metapneumovirus Not detected Normal NOT DETECTED [facility] Comment on above: Performed By: #### R SPLUS ####[facility] Szkrkkog[address] [place], [place] [address]Dr. Nicky Simmons Mycoplas. Pneumoniae Not detected Normal NOT DETECTED [facility] Comment on above: Performed By: #### R SPLUS ####[facility] Mgydcrbthw[address] [place], [place] [address]Dr. Nicky Simmons Parainfluenza 1 Not detected Normal NOT DETECTED [facility] Comment on above: Performed By: #### R SPLUS ####[facility] T[address]dias[address] [place], [place] [address]Dr. Dulceuday Simmons Parainfluenza 2 Not detected Normal NOT DETECTED [facility] Comment on above: Performed By: #### R SPLUS ####[facility] Ltdzrssovu[address] [place], [place] [address]Dr. Dulceuday Simmons Parainfluenza 3 Not detected Normal NOT DETECTED [facility] Comment on above: Performed By: #### R SPLUS ####[facility] Tsxttjeeea[address] [place], [place] [address]Dr. Nicky Simmons Parainfluenza 4 Not detected Normal NOT DETECTED [facility] Comment on above: Performed By: #### R SPLUS ####[facility] Tsiwgqdgls[address] [place], [place] [address]Dr. Dulceuday Simmons Rhino/Enterovirus Detected Abnormal NOT DETECTED [facility] Comment on above: Performed By: #### R SPLUS ####[facility] Xy[address] [place], [place] [address]Dr. Nicky Simmons RP2 Header 1 RESPIRATORY PANEL: VIRUSES Normal [facility] Comment on above: Performed By: #### R SPLUS ####[facility] Lqh[address]or[address] [place], [place] [address]Dr. Nicky Simmons RP2 Header 2 RESPIRATORY PANEL: BACTERIA Normal [facility] Comment on above: Performed By: #### R SPLUS ####[facility] Qyhxloqarz[address] [place], [place] [address]Dr. Nicky Simmons RSV Not detected Normal NOT DETECTED [facility] Comment on above: Performed By: #### R SPLUS ####[facility] Eugwwxrlwh[address] [place], [place] [address]Dr. Nicky Simmons SARS-CoV-2 (COVID-19) RNA GOKUL+probe Ql (Unsp spec) Not detected Normal NOT DETECTED [facility] Comment on above: Performed By: #### R SPLUS ####[facility] [address] [place], [place] [address]NfDr. Nicky Simmons Result Comment: When diagnostic testing is negative, the possibility of a false negative should be considered in the context of a patient's recent exposures and the presence of clinical signs and symptoms consistent with SARS-CoV-2. This test is not yet approved or cleared by the [place] FDA. When there are no FDA-approved or cleared tests available, and other criteria are met, FDA can make tests available under an emergency access mechanism called an Emergency Use Authorization (EUA). The EUA for this test is supported by the [place] Marker of Health and Human Service's declaration that circumstances exist to justify the emergency use of in vitro diagnostics for the detection and/or diagnosis of the virus that causes COVID-19. This EUA will remain in effect for the duration of the COVID-19 declaration justifying emergency of IVDs, unless it is terminated or revoked by the FDA (after which the test may no longer be used). Performed By: #### I NFLUAB #### [facility] [id number] Nicky Simmons STREPT SCREENon 05-17-2022 STREP SCREEN A Negative Normal NEGATIVE [facility] Comment on above: Performed By: #### S SCRN, GRASTCX #### [facility] [id number] Nicky Simmons XR CHEST 1 Von 05-17-2022 XR CHEST 1 V EXAMINATION: XR CHES T 1 V HISTORY: COUGH , nausea, congestion COMPARISON: XR chest 06/19/2021 FINDINGS: LUNGS: No significant pulmonary parenchymal abnormalities. VASCULATURE: No increased pulmonary vasculature. PLEURA: No pneumothorax, effusion, or pleural thickening. CARDIAC: No cardiomegaly or cardiac silhouette abnormality. MEDIASTINUM: No visible mass or adenopathy. BONES: No fracture or visible bone lesion. OTHER: Negative. IMPRESSION: 1. No acute cardiopulmonary process. Stable chest. Electronically authenticated by: LOUIE LIRIANO Date: 2022-05-17 15:42 Normal [facility] MR knee LT wo conon 04-20-20 MR knee LT wo con [facility] Main [place] [address] [place] [address] MRI Report Signed Patient: Coy Samuel MR#: [id number] : 1985 Acct:[id number] Age/Sex: 36 / F ADM Date: 04/20/22 [facility] Room: Type: REG CLI Attending Dr: Mukund Rodriguez MD Copies to: Mukund Rodriguez MD Ordering Provider: Mukund Rodriguez MD Date of Service: 04/20/22 MR/MR knee LT wo con: [id number] MRI the LEFTknee without contrast TECHNIQUE: Multiplanar T1 and T2-weighted imaging of the knee obtained without contrast HISTORY: Ligamentous sprain of the LEFT knee LEFT knee injury. Unable to bear weight. Moderate joint effusion identified. Anterior and posterior cruciate ligaments are intact.. No signal abnormality or articular surface tear of the menisci identified.. 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 No osteochondral defect identified. No linear fracture or bone marrow edema identified. Patellar ligament and quadriceps tendon are intact. Collateral ligaments are intact. No signal abnormality of the musculature or subcutaneous tissues identified. MR/MR knee LT wo con IMPRESSION: Moderate joint effusion. 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 Intact ACL menisci. Impression dictated by: Albert Millan M.D.04/20/2022 12:57 PM Dictation Location: [place] [address] Transcribed By: [facility] 04/20/22 1257 Dictated By: Albert Millan DO 04/20/22 1252 Signed By: 04/20/[address] [facility] CBC AUTO DIFFon 04-16-2022 BASO # 0.1 103/ul Normal 0.0-0.1 [facility] Comment on above: Performed By: #### C BC #### [facility] [address] [address] [address] Nicky Simmons Basophils/100 WBC (Bld) 0.5 % Normal 0.2-2.0 [facility] Comment on above: Performed By: #### C BC #### [facility] [address] [address] [address] Nicky Simmons EO # 0.2 103/ul Normal 0.0-0.7 [facility] Comment on above: Performed By: #### C BC #### [facility] [address] [address] [address] Nicky Simmons Eosinophils/100 WBC (Bld) 2.1 % Normal 0.9-7.0 [facility] Comment on above: Performed By: #### C BC #### [facility] [address] [place] [address] Dr. Nicky Simmons Erythrocyte distribution width (RBC) [Ratio] 13.0 % Normal 11.0-15.0 [facility] Comment on above: Performed By: #### C BC #### [facility] [address] [place] [address] Dr. Nicky Simmons Hematocrit (Bld) [Volume fraction] 41.7 % Normal 36.0-48.0 [facility] Comment on above: Performed By: #### C BC #### [facility] [address] [place] [address] Dr. Nicky Simmons Hemoglobin (Bld) [Mass/Vol] 13.5 g/dL Normal 12.0-16.0 [facility] Comment on above: Performed By: #### C BC #### [facility] [address] [place] [address] Dr. Nicky Simmons IG # 0.06 10e3/ul Critically high 0.00-0.03 [facility] Comment on above: Performed By: #### C BC #### [facility] [address] [address] [address] Nicky Simmons IG % 0.6 % Critically high 0.0-0.5 [facility] Comment on above: Performed By: #### C BC #### [facility] [address] [place] [address] Dr. Nicky Simmons LYMPH # 2.4 103/ul Normal 1.2-3.8 [facility] Comment on above: Performed By: #### C BC #### [facility] [address] [place] [address] Dr. Nicky Simmons Lymphocytes/100 WBC (Bld) 23.1 % Normal 20.5-60.0 [facility] Comment on above: Performed By: #### C BC #### [facility] [address] [place] [address] Dr. Nicky Simmons MANUAL DIFF REQ NO Normal [facility] Comment on above: Performed By: #### C BC #### [facility] [address] [place] [address] Dr. Nicky Simmons MCH (RBC) [Entitic mass] 29.2 pg Normal 26.7-34.0 [facility] Comment on above: Performed By: #### C BC #### [facility] [address] [place] [address] Dr. Nicky Simmons MCHC (RBC) [Mass/Vol] 32.4 g/dL Normal 29.9-35.2 [facility] Comment on above: Performed By: #### C BC #### [facility] [address] [place] [address] Dr. Nicky Simmons MCV (RBC) [Entitic vol] 90.1 fL Normal 81.0-99.0 [facility] Comment on above: Performed By: #### C BC #### [facility] [address] [place] [address] Dr. Nicky Simmons MONO # 0.6 103/ul Normal 0.3-0.8 [facility] Comment on above: Performed By: #### C BC #### [facility] [address] [place] [address] Dr. Nicky Simmons Monocytes/100 WBC (Bld) 5.6 % Normal 1.7-12.0 [facility] Comment on above: Performed By: #### C BC #### [facility] [address] [place] [address] Dr. Nicky Simmons NEUT # 7.2 103/ul Critically high 1.4-6.5 [facility] Comment on above: Performed By: #### C BC #### [facility] [address] [address] [address] Nicky Simmons Neutrophils/100 WBC (Bld) 68.1 % Normal 43.0-75.0 [facility] Comment on above: Performed By: #### C BC #### [facility] [address] [address] [address] Nicky Simmons Platelet mean volume (Bld) [Entitic vol] 9.6 fL Normal 9.5-13.5 [facility] Comment on above: Performed By: #### C BC #### [facility] [address] [address] [address] Nicky Simmons PLT 339 103/ul Normal 150-450 [facility] Comment on above: Performed By: #### C BC #### [facility] [address] [address] [address] Nicky Simmons RBC 4.63 106/ul Normal 4.20-5.40 [facility] Comment on above: Performed By: #### C BC #### [facility] [address] [address] [address] Nicky Simmons WBC 10.6 103/ul Normal 4.0-11.0 [facility] Comment on above: Performed By: #### C BC #### [facility] [id number] Nicky Simmons PREG HCG QUALon 04-16-2022 , QUAL Negative Normal NEGATIVE [facility] Comment on above: Performed By: #### P REG ####[facility] [address] [id number]. Nicky Simmons Covid-19 PCR (CVDTBH)on SARS-CoV-2 (COVID-19) RNA GOKUL+probe Ql (Unsp spec) Not detected Normal NOT DETECTED [facility] Comment on above: Result Comment: This test is not yet approved or cleared by the [place] FDA. When there are no FDA-approved or cleared tests available, and other criteria are met, FDA can make tests available under an emergency access mechanism called an Emergency Use Authorization (EUA). The EUA for this test is supported by the [place] of Health and Human Service's (HHS's) declaration that circumstances exist to justify the emergency use of in vitro diagnostics for the detection and/or diagnosis of the virus that causes COVID-19. This EUA will remain in effect (meaning this test can be used) for the duration of the COVID-19 declaration justifying emergency of IVDs, unless it is terminated or revoked by FDA (after which the test may no longer be used). When diagnostic testing is negative, the possibility of a false negative should be considered in the context of a patient's recent exposures and the presence of clinical signs and symptoms consistent with SARS-CoV-2. Performed By: #### C VDTB ####[facility] [address] [place] [address]Dr. Nicky Simmons CBC AUTO DIFFon 03-23-2022 BASO # 0.0 103/ul Normal 0.0-0.1 [facility] Comment on above: Performed By: #### I NFLUAB #### [facility] [address] [place] [address] Dr. Nicky Simmons Basophils/100 WBC (Bld) 0.4 % Normal 0.2-2.0 [facility] Comment on above: Performed By: #### I NFLUAB #### [facility] [address] [place] [address] Dr. Nicky Simmons EO # 0.4 103/ul Normal 0.0-0.7 [facility] Comment on above: Performed By: #### I NFLUAB #### [facility] [address] [place] [address] Dr. Nicky Simmons Eosinophils/100 WBC (Bld) 3.3 % Normal 0.9-7.0 [facility] Comment on above: Performed By: #### I NFLUAB #### [facility] [address] [place] [address] Dr. Nicky Simmons Erythrocyte distribution width (RBC) [Ratio] 12.9 % Normal 11.0-15.0 [facility] Comment on above: Performed By: #### I NFLUAB #### [facility] [address] [place] [address] Dr. Nicky Simmons Hematocrit (Bld) [Volume fraction] 41.7 % Normal 36.0-48.0 [facility] Comment on above: Performed By: #### I NFLUAB #### [facility] [address] [place] [address] Dr. Nicky Simmons Hemoglobin (Bld) [Mass/Vol] 13.7 g/dL Normal 12.0-16.0 [facility] Comment on above: Performed By: #### I NFLUAB #### [facility] [address] [place] [address] Dr. Nicky Simmons IG # 0.04 10e3/ul Critically high 0.00-0.03 [facility] Comment on above: Performed By: #### I NFLUAB #### [facility] [address] [place] [address] Dr. Nicky Simmons IG % 0.4 % Normal 0.0-0.5 [facility] Comment on above: Performed By: #### I NFLUAB #### [facility] [address] [place] [address] Dr. Nicky Simmons LYMPH # 2.5 103/ul Normal 1.2-3.8 [facility] Comment on above: Performed By: #### I NFLUAB #### [facility] [address] [place] [address] Dr. Nicky Simmons Lymphocytes/100 WBC (Bld) 22.3 % Normal 20.5-60.0 [facility] Comment on above: Performed By: #### I NFLUAB #### [facility] [address] [place] [address] Dr. Nicky Simmons MANUAL DIFF REQ NO Normal [facility] Comment on above: Performed By: #### I NFLUAB #### [facility] [address] [place] [address] Dr. Nicky Simmons MCH (RBC) [Entitic mass] 29.3 pg Normal 26.7-34.0 [facility] Comment on above: Performed By: #### I NFLUAB #### [facility] [address] [address] [address] Nicky Simmons MCHC (RBC) [Mass/Vol] 32.9 g/dL Normal 29.9-35.2 [facility] Comment on above: Performed By: #### I NFLUAB #### [facility] [address] [place] [address] Dr. Nicky Simmons MCV (RBC) [Entitic vol] 89.1 fL Normal 81.0-99.0 [facility] Comment on above: Performed By: #### I NFLUAB #### [facility] [address] [place] [address] Dr. Nicky Simmons MONO # 0.6 103/ul Normal 0.3-0.8 [facility] Comment on above: Performed By: #### I NFLUAB #### [facility] [address] [place] [address] Dr. Nicky Simmons Monocytes/100 WBC (Bld) 5.4 % Normal 1.7-12.0 [facility] Comment on above: Performed By: #### I NFLUAB #### [facility] [address] [place] [address] Dr. Nicky Simmons NEUT # 7.6 103/ul Critically high 1.4-6.5 [facility] Comment on above: Performed By: #### I NFLUAB #### [facility] [address] [place] [address] Dr. Nicky Simmons Neutrophils/100 WBC (Bld) 68.2 % Normal 43.0-75.0 [facility] Comment on above: Performed By: #### I NFLUAB #### [facility] [address] [place] [address] Dr. Nicky Simmons Platelet mean volume (Bld) [Entitic vol] 9.2 fL Critically low 9.5-13.5 [facility] Comment on above: Performed By: #### I NFLUAB #### [facility] [address] [place] [address] Dr. Nicky Simmons PLT 387 103/ul Normal 150-450 [facility] Comment on above: Performed By: #### I NFLUAB #### [facility] [address] [address] [address] Nicky Simmons RBC 4.68 106/ul Normal 4.20-5.40 [facility] Comment on above: Performed By: #### I NFLUAB #### [facility] [address] [address] [address] Nicky Simmons WBC 11.1 103/ul Critically high 4.0-11.0 [facility] Comment on above: Performed By: #### I NFLUAB #### [facility] [address] [address] [address] Nicky Simmons CRPon 03-23-2022 CRP 1.8 mg/dL Critically high <=1.0 [facility] Comment on above: Performed By: #### I NFLUAB #### [facility] [address] [place] [address] Dr. Nicky Simmons PROF CHEM 8 (BAS METB)on Anion gap [Moles/Vol] 12.2 mmol/L Normal [facility] Comment on above: Performed By: #### I NFLUAB #### [facility] [address] [address] [address] Nicky Simmons Calcium [Mass/Vol] 8.8 mg/dL Normal 8.5-10.1 [facility] Comment on above: Performed By: #### I NFLUAB #### [facility] [address] [address] [address] Nicky Simmons Chloride [Moles/Vol] 107 mmol/L Normal 98-107 [facility] Comment on above: Performed By: #### I NFLUAB #### [facility] [address] [address] [address] Nicky Simmons CO2 [Moles/Vol] 23.8 mmol/L Normal 21.0-32.0 [facility] Comment on above: Performed By: #### I NFLUAB #### [facility] [address] [address] [address] Nicky Simmons Creatinine [Mass/Vol] 0.78 mg/dL Normal 0.55-1.02 [facility] Comment on above: Performed By: #### I NFLUAB #### [facility] [address] [address] [address] Nicky Simmons EGFR-AF [place] >60 Normal >=60 [facility] Comment on above: Performed By: #### I NFLUAB #### [facility] [address] [address] [address] Nicky Simmons EGFR-NON AF [place] >60 Normal >=60 [facility] Comment on above: Performed By: #### I NFLUAB #### [facility] [address] [address] [address] Nicky Simmons Glucose [Mass/Vol] 121 mg/dL Critically high 74-106 T [facility] Comment on above: Performed By: #### I NFLUAB #### [facility] [address] [address] [address] Nicky Simmons Potassium [Moles/Vol] 4.0 mmol/L Normal 3.5-5.1 [facility] Comment on above: Performed By: #### I NFLUAB #### [facility] [address] [address] [address] Nicky Simmons Sodium [Moles/Vol] 139 mmol/L Normal 136-145 [facility] Comment on above: Performed By: #### I NFLUAB #### [facility] [address] [address] [address] Nicky Simmons Urea nitrogen [Mass/Vol] 11.0 mg/dL Normal 7.0-18.0 [facility] Comment on above: Performed By: #### I NFLUAB #### [facility] [address] [address] [address] Nicky Simmons Urea nitrogen/Creatinine [Mass ratio] 14.1 mg/mg Normal [facility] Comment on above: Performed By: #### I NFLUAB #### [facility] [address] [address] [address] Nicky Simmons SED RATE [facility] 2021 SED RATE 36 mm/hr Critically high <=20 [facility] Comment on above: Performed By: #### C BC #### [facility] [address] [address] [address] Nicky Simmons XR KNEE LT 4V or >on 022 XR KNEE LT 4V or > EXAM: XR KNEE LT 4V or > HISTORY: pain COMPARISON: None. TECHNIQUE: Frontal, lateral, and oblique views of the left knee. FINDINGS: Mineralization: Within normal limits. Bones: No acute fractures or dislocations. Joints: Normal joint spacing. Joint effusion. Soft Tissues: Unremarkable. IMPRESSION: Joint effusion without acute osseous abnormality. Electronically authenticated by: MARIAM SANCHEZ Date: 2022-02-27 22:00 Normal [facility] CBC AUTO DIFFon 02-23-2022 BASO # 0.1 103/ul Normal 0.0-0.1 [facility] Comment on above: Performed By: #### C BC #### [facility] [address] [address] [address] Nicky Simmons Basophils/100 WBC (Bld) 0.6 % Normal 0.2-2.0 [facility] Comment on above: Performed By: #### C BC #### [facility] [address] [address] [address] Nicky Simmons EO # 0.3 103/ul Normal 0.0-0.7 [facility] Comment on above: Performed By: #### C BC #### [facility] [address] [address] [address] Nicky Simmons Eosinophils/100 WBC (Bld) 2.5 % Normal 0.9-7.0 [facility] Comment on above: Performed By: #### C BC #### [facility] [address] [address] [address] Nicky Simmons Erythrocyte distribution width (RBC) [Ratio] 12.8 % Normal 11.0-15.0 [facility] Comment on above: Performed By: #### C BC #### [facility] [address] [address] [address] Nicky Simmons Hematocrit (Bld) [Volume fraction] 39.5 % Normal 36.0-48.0 [facility] Comment on above: Performed By: #### C BC #### [facility] [address] [address] [address] Nicky Simmons Hemoglobin (Bld) [Mass/Vol] 13.0 g/dL Normal 12.0-16.0 [facility] Comment on above: Performed By: #### C BC #### [facility] [address] [address] [address] Nicky Simmons IG # 0.04 10e3/ul Critically high 0.00-0.03 [facility] Comment on above: Performed By: #### C BC #### [facility] [address] [address] [address] Nicky Simmons IG % 0.3 % Normal 0.0-0.5 [facility] Comment on above: Performed By: #### C BC #### [facility] [address] [place] [address] Dr. Nicky Simmons LYMPH # 3.0 103/ul Normal 1.2-3.8 [facility] Comment on above: Performed By: #### C BC #### [facility] [address] [place] [address] Dr. Nicky Simmons Lymphocytes/100 WBC (Bld) 24.4 % Normal 20.5-60.0 [facility] Comment on above: Performed By: #### C BC #### [facility] [address] [place] [address] Dr. Nicky Simmons MANUAL DIFF REQ NO Normal [facility] Comment on above: Performed By: #### C BC #### [facility] [address] [place] [address] Dr. Nicky Simmons MCH (RBC) [Entitic mass] 29.4 pg Normal 26.7-34.0 [facility] Comment on above: Performed By: #### C BC #### [facility] [address] [place] [address] Dr. Nicky Simmons MCHC (RBC) [Mass/Vol] 32.9 g/dL Normal 29.9-35.2 [facility] Comment on above: Performed By: #### C BC #### [facility] [address] [address] [address] Nicky Simmons MCV (RBC) [Entitic vol] 89.4 fL Normal 81.0-99.0 [facility] Comment on above: Performed By: #### C BC #### [facility] [address] [address] [address] Nicky Simmons MONO # 0.7 103/ul Normal 0.3-0.8 [facility] Comment on above: Performed By: #### C BC #### [facility] [address] [address] [address] Nicky Simmons Monocytes/100 WBC (Bld) 6.0 % Normal 1.7-12.0 [facility] Comment on above: Performed By: #### C BC #### [facility] [address] [place] [address] Dr. iNcky Simmons NEUT # 8.0 103/ul Critically high 1.4-6.5 [facility] Comment on above: Performed By: #### C BC #### [facility] [address] [place] [address] Dr. Nicky Simmons Neutrophils/100 WBC (Bld) 66.2 % Normal 43.0-75.0 [facility] Comment on above: Performed By: #### C BC #### [facility] [address] [place] [address] Dr. Nicky Simmons Platelet mean volume (Bld) [Entitic vol] 9.1 fL Critically low 9.5-13.5 [facility] Comment on above: Performed By: #### C BC #### [facility] [address] [place] [address] Dr. Nicky Simmons PLT 367 103/ul Normal 150-450 [facility] Comment on above: Performed By: #### C BC #### [facility] [address] [address] [address] Nicky Simmons RBC 4.42 106/ul Normal 4.20-5.40 [facility] Comment on above: Performed By: #### C BC #### [facility] [address] [place] [address] Dr. Nicky Simmons WBC 12.1 103/ul Critically high 4.0-11.0 [facility] Comment on above: Performed By: #### C BC #### [facility] [address] [place] [address] Dr. Nicky Simmons ER URINE PROFILEon 2 Bilirubin Ql (U) Negative Normal NEGATIVE [facility] Comment on above: Performed By: #### I NFLUAB #### [facility] [address] [place] [address] Dr. Nicky Simmons Clarity (U) CLEAR Normal CLEAR [facility] Comment on above: Performed By: #### I NFLUAB #### [facility] [address] [place] [address] Dr. Nicky Simmons Color (U) RED Abnormal YELLOW [facility] Comment on above: Performed By: #### I NFLUAB #### [facility] [address] [place] [address] Dr. Nicky LOVINGAHMargaux A micrscopic examination will be performed if indicated. Normal [facility] Comment on above: Performed By: #### I NFLUAB #### [facility] [address] [place] [address] Dr. Nicky Simmons Glucose Ql (U) Negative Normal NEGATIVE [facility] Comment on above: Performed By: #### I NFLUAB #### [facility] [address] [place] [address] Dr. Nicky Simmons Hemoglobin Ql (U) LARGE Abnormal NEGATIVE [facility] Comment on above: Performed By: #### I NFLUAB #### [facility] [address] [place] [address] Dr. Nicky Simmons Ketones Ql (U) Negative Normal NEGATIVE [facility] Comment on above: Performed By: #### I NFLUAB #### [facility] [address] [place] [address] Dr. Nicky Simmons LEUKOCYTES Negative Normal NEGATIVE [facility] Comment on above: Performed By: #### I NFLUAB #### [facility] [address] [place] [address] Dr. Nicky Simmons Nitrite Ql (U) Negative Normal NEGATIVE [facility] Comment on above: Performed By: #### I NFLUAB #### [facility] [address] [place] [address] Dr. Nicky Simmons pH (U) 8.5 [pH] Normal 5-9 [facility] Comment on above: Performed By: #### I NFLUAB #### [facility] [address] [place] [address] Dr. Nicky Simmons SPEC GRAVITY 1.015 Normal 1.005-<=1.025 [facility] Comment on above: Performed By: #### I NFLUAB #### [facility] [address] [place] [address] Dr. Nicky Simmons UA PROTEIN TRACE Normal NEGATIVE/ TRACE [facility] Comment on above: Performed By: #### I NFLUAB #### [facility] [address] [place] [address] Dr. Nicky Simmons UR MICRO IND INDICATED Normal [facility] Comment on above: Performed By: #### I NFLUAB #### [facility] [address] [place] [address] Dr. Nicky Simmons Urobilinogen Qn (U) 0.2 {Yan'U}/dL Normal 0.2 - 1. 0 [facility] Comment on above: Performed By: #### I NFLUAB #### [facility] [address] [place] [address] Dr. Nick[facility] 30 mm/hr Critically high <=20 [facility] Comment on above: Performed By: #### S EDR ####[facility] [id number] [address]Dr. Nicky Simmons URINE MICROSCOPIC ONLYon BACTERIA TRACE Abnormal NONE SEEN [facility] Comment on above: Performed By: #### I NFLUAB #### [facility] [address] [place] [address] Dr. Nicky Simmons Bacteria identified Cx Nom (U) NOT INDICATED Normal [facility] Comment on above: Performed By: #### I NFLUAB #### [facility] [address] [place] [address] Dr. Nicky Simmons CAST NONE SEEN Normal NONE SEEN [facility] Comment on above: Performed By: #### I NFLUAB #### [facility] [address] [place] [address] Dr. Nicky Simmons Crystals LM Nom (Urine sed) NONE SEEN Normal NONE SEEN [facility] Comment on above: Performed By: #### I NFLUAB #### [facility] [address] [place] [address] Dr. Nicky Simmons Epithelial cells LM Ql (Urine sed) RARE Normal NONE SEEN /RARE [facility] Comment on above: Performed By: #### I NFLUAB #### [facility] [address] [place] [address] Dr. Nicky Simmons MUCOUS NONE SEEN Normal NONE SEEN [facility] Comment on above: Performed By: #### I NFLUAB #### [facility] [address] [place] [address] Dr. Nicky Simmons RBC 75-100 Abnormal 0-2 [facility] Comment on above: Performed By: #### I NFLUAB #### [facility] [address] [place] [address] Dr. Nicky Simmons WBC 2-5 Abnormal NONE SEEN [facility] Comment on above: Performed By: #### I NFLUAB #### [facility] [address] [place] [address] Dr. Nicky Simmons US PELVISon 02-23-2022 US PELVIS EXAMINATION: US PELVIS HISTORY: Lower abdominal pain COMPARISON: No relevant comparison available. FINDINGS: Transabdominal images The uterus is normal in size, contour and echotexture measuring 7.96 cm. No focal myometrial mass. The endometrium measures 5 mm, normal. The right ovary is normal in appearance measuring 4.0 x 1.8 x 2.0 cm. Normal color Doppler flow. Left ovary is normal in appearance measuring 2.9 x 2.0 cm. Normal color Doppler flow No free fluid. IMPRESSION: Normal transabdominal pelvic ultrasound Electronically authenticated by: SREE LYLE Date: 2022-02-23 13:53 Normal [facility] C-Reactive Proteinon 020 CRP [Mass/Vol] 2.8 mg/L Normal 0.0-5.0 [facility] Comment on above: Performed By: #### C DP, CRP, CP, TROPI, HCG, LD #### [facility] [address] [place] [address] Front Elevator Operator: Christopher Dorsey DO CRP [Mass/Vol] 2.8 mg/L 0 - 5 mg/L [place], [place] CBC Auto Differentialon 02-04 Basophils (Bld) [#/Vol] 0.00 10*3/uL [place] Basophils/100 WBC (Bld) 0 % 0 - 2 % [place] Differential Type NOT REPORTED [place] Eosinophils (Bld) [#/Vol] 0.20 10*3/uL [place] Eosinophils/100 WBC (Bld) 3 % 0 - 4 % [place] Erythrocyte distribution width (RBC) [Ratio] 13.5 % 11.5 - 14.9 % [place] Hematocrit (Bld) [Volume fraction] 39.3 % 36 - 46 % [place] Hemoglobin (Bld) [Mass/Vol] 12.9 g/dL 12 - 16 g/dL [place] Lymphocytes (Bld) [#/Vol] 2.00 10*3/uL [place] Lymphocytes/100 WBC (Bld) 29 % 24 - 44 % [place] MCH (RBC) [Entitic mass] 29.3 pg 26 - 34 pg [place] MCHC (RBC) [Mass/Vol] 32.7 g/dL 31 - 37 g/dL [place] MCV (RBC) [Entitic vol] 89.6 fL 80 - 100 fL [place] Monocytes (Bld) [#/Vol] 0.50 10*3/uL [place] Monocytes/100 WBC (Bld) 7 % 1 - 7 % [place] Platelet mean volume (Bld) [Entitic vol] 8.3 fL 6 - 12 fL [place] Platelets (Bld) [#/Vol] 238 10*3/uL [place] Platelets (Bld) [#/Vol] NOT REPORTED [place] RBC (Bld) [#/Vol] 4.39 10*6/uL 4 - 5.2 m/uL [place] RBC morphology finding Nom (Bld) NOT REPORTED [place] Segmented neutrophils/100 WBC (Bld) 61 % 36 - 66 % [place] Segs Absolute 4.20 [place] WBC (Bld) [#/Vol] NOT REPORTED per 100 WBC [place] WBC (Bld) [#/Vol] 7.0 10*3/uL [place] WBC Morphology NOT REPORTED [place], [place] CBC with Diffon 03-01-2020 Abs. Basophil 0.00 k/uL Normal 0.0-0.2 [facility] Comment on above: Performed By: #### C DP, CRP, CP, TROPI, HCG, LD #### [facility] [address] [facility] [place] [address] Front Elevator Operator: Christopher Dorsey DO Abs.Neutrophil (Seg) 4.20 k/uL Normal 1.3-9.1 [facility] Comment on above: Performed By: #### C DP, CRP, CP, TROPI, HCG, LD #### [facility] [address] [facility] [place] [address] Front Elevator Operator: Christopher Dorsey DO Basophils/100 WBC (Bld) 0 % Normal 0-2 [facility] Comment on above: Performed By: #### C DP, CRP, CP, TROPI, HCG, LD #### [facility] [address] [facility] [place] [address] Front Elevator Operator: Christopher Dorsey DO Eosinophils (Bld) [#/Vol] 0.20 10*3/uL Normal 0.0-0.4 [facility] Comment on above: Performed By: #### C DP, CRP, CP, TROPI, HCG, LD #### [facility] [address] [place] [address] Front Elevator Operator: Christopher Dorsey DO Eosinophils/100 WBC (Bld) 3 % Normal 0-4 [facility] Comment on above: Performed By: #### C DP, CRP, CP, TROPI, HCG, LD #### [facility] [address] [place] [address] Front Elevator Operator: Christopher Dorsey DO Erythrocyte distribution width (RBC) [Ratio] 13.5 % Normal 11.5-14.9 [facility] Comment on above: Performed By: #### C DP, CRP, CP, TROPI, HCG, LD #### [facility] [address] [place] [address] Front Elevator Operator: Christopher Dorsey DO Hematocrit (Bld) [Volume fraction] 39.3 % Normal 36-46 [facility] Comment on above: Performed By: #### C DP, CRP, CP, TROPI, HCG, LD #### [facility] [place] [address] Front Elevator Operator: Christopher Dorsey DO Hemoglobin (Bld) [Mass/Vol] 12.9 g/dL Normal 12.0-16.0 [facility] Comment on above: Performed By: #### C DP, CRP, CP, TROPI, HCG, LD #### [facility] [place] [address] Front Elevator Operator: Christopher Dorsey DO Lymphocytes (Bld) [#/Vol] 2.00 10*3/uL Normal 1.0-4.8 [facility] Comment on above: Performed By: #### C DP, CRP, CP, TROPI, HCG, LD #### [facility] [address] [place] [address] Front Elevator Operator: Christopher Dorsey DO Lymphocytes/100 WBC (Bld) 29 % Normal 24-44 [facility] Comment on above: Performed By: #### C DP, CRP, CP, TROPI, HCG, LD #### [facility] [address] [place] [address] Front Elevator Operator: Christopher Dorsey DO MCH (RBC) [Entitic mass] 29.3 pg Normal 26-34 [facility] Comment on above: Performed By: #### C DP, CRP, CP, TROPI, HCG, LD #### [facility] [address] [place] [address] Front Elevator Operator: Christopher Dorsey DO MCHC (RBC) [Mass/Vol] 32.7 g/dL Normal 31-37 [facility] Comment on above: Performed By: #### C DP, CRP, CP, TROPI, HCG, LD #### [facility] [place] [address] Front Elevator Operator: Christopher Dorsey DO MCV (RBC) [Entitic vol] 89.6 fL Normal 80-100 [facility] Comment on above: Performed By: #### C DP, CRP, CP, TROPI, HCG, LD #### [facility] [place] [address] Front Elevator Operator: Christopher Dorsey DO Monocytes (Bld) [#/Vol] 0.50 10*3/uL Normal 0.1-1.3 [facility] Comment on above: Performed By: #### C DP, CRP, CP, TROPI, HCG, LD #### [facility] [address] [place] [address] Front Elevator Operator: Christopher Dorsey DO Monocytes/100 WBC (Bld) 7 % Normal 1-7 [facility] Comment on above: Performed By: #### C DP, CRP, CP, TROPI, HCG, LD #### [facility] [address] [place] [address] Front Elevator Operator: Christopher Dorsey DO Neutrophil (Seg) 61 % Normal 36-66 [facility] Comment on above: Performed By: #### C DP, CRP, CP, TROPI, HCG, LD #### [facility] [address] [facility] [place] [address] Front Elevator Operator: Christopher Dorsey DO Platelet mean volume (Bld) [Entitic vol] 8.3 fL Normal 6.0-12.0 [facility] Comment on above: Performed By: #### C DP, CRP, CP, TROPI, HCG, LD #### [facility] [address] [facility] [place] [address] Front Elevator Operator: Christopher Dorsey DO Platelets (Bld) [#/Vol] 238 10*3/uL Normal 150-450 [facility] Comment on above: Performed By: #### C DP, CRP, CP, TROPI, HCG, LD #### [facility] [address] [facility] [place] [address] Front Elevator Operator: Christopher Dorsey DO RBC (Bld) [#/Vol] 4.39 10*6/uL Normal 4.0-5.2 [facility] Comment on above: Performed By: #### C DP, CRP, CP, TROPI, HCG, LD #### [facility] [address] [place] [address] Front Elevator Operator: Christopher Dorsey DO WBC (Bld) [#/Vol] 7.0 10*3/uL Normal 3.5-11.0 [facility] Comment on above: Performed By: #### C DP, CRP, CP, TROPI, HCG, LD #### [facility] [place] [address] Front Elevator Operator: Christopher Dorsey DO Abs.Imm.Granulocyte NOT REPORTED Normal 0.00-0.30 [facility] Comment on above: Performed By: #### C DP, CRP, CP, TROPI, HCG, LD #### [facility] [address] [place] [address] Front Elevator Operator: Christopher Dorsey DO Auto Diff Performed NOT REPORTED Normal [facility] Comment on above: Performed By: #### C DP, CRP, CP, TROPI, HCG, LD #### [facility] [address] [place] [address] Front Elevator Operator: Christopher Dorsey DO Immature granulocytes (Bld) [#/Vol] NOT REPORTED Normal 0 [facility] Comment on above: Performed By: #### C DP, CRP, CP, TROPI, HCG, LD #### [facility] [address] [place] [address] Front Elevator Operator: Christopher Dorsey DO NRBC Automated NOT REPORTED Normal [facility] Comment on above: Performed By: #### C DP, CRP, CP, TROPI, HCG, LD #### [facility] [address] [place] [address] Front Elevator Operator: Christopher Dorsey DO Platelets (Bld) [#/Vol] NOT REPORTED Normal [facility] Comment on above: Performed By: #### C DP, CRP, CP, TROPI, HCG, LD #### [facility] [address] [place] [address] Front Elevator Operator: Christopher Dorsey DO RBC morphology finding Nom (Bld) NOT REPORTED Normal [facility] Comment on above: Performed By: #### C DP, CRP, CP, TROPI, HCG, LD #### [facility] [address] [facility] [place] [address] Front Elevator Operator: Christopher Dorsey DO WBC Morphology NOT REPORTED Normal [facility] Comment on above: Performed By: #### C DP, CRP, CP, TROPI, HCG, LD #### [facility] [address] [facility] [place] [address] Front Elevator Operator: Christopher Dorsey DO Comp Metabolic Profon 2019 Bilirubin Ql (U) <0.15 Low 0.3-1.2 [facility] Comment on above: Performed By: #### C DP, CRP, CP, TROPI, HCG, LD #### [facility] [address] [facility] [place] [place] [address] Front Elevator Operator: Christopher Dorsey DO (cont.) Normal [facility] Comment on above: Result Comment: Aver age GFR for 30-39 years old: 107 mL/min/1.73sq m Chronic Kidney Disease: <60 mL/min/1.73sq m Kidney failure: <15 mL/min/1.73sq m eGFR calculated using average adult body mass. Additional eGFR calculator available at: http://www.[employer].AnybodyOutThere/multiple_crcl_2012.htm Performed By: #### C DP, CRP, CP, TROPI, HCG, LD #### [facility] [address] [facility] [place] [address] Front Elevator Operator: Christopher Dorsey DO Albumin [Mass/Vol] 3.7 g/dL Normal 3.5-5.2 [facility] Comment on above: Performed By: #### C DP, CRP, CP, TROPI, HCG, LD #### [facility] [address] [facility] [place] [address] Front Elevator Operator: Christopher Dorsey DO Alkaline Phos 67 U/L Normal 35-104 [facility] Comment on above: Performed By: #### C DP, CRP, CP, TROPI, HCG, LD #### [facility] [address] [place] [address] Front Elevator Operator: Christopher Dorsey DO ALT [Catalytic activity/Vol] 12 U/L Normal 5-33 [facility] Comment on above: Performed By: #### C DP, CRP, CP, TROPI, HCG, LD #### [facility] [address] [place] [address] Front Elevator Operator: Christopher Dorsey DO Anion gap [Moles/Vol] 12 mmol/L Normal 9-17 [facility] Comment on above: Performed By: #### C DP, CRP, CP, TROPI, HCG, LD #### [facility] [address] [place] [address] Front Elevator Operator: Christopher Dorsey DO AST [Catalytic activity/Vol] 13 U/L Normal <32 [facility] Comment on above: Performed By: #### C DP, CRP, CP, TROPI, HCG, LD #### [facility] [address] [place] [address] Front Elevator Operator: Christopher Dorsey DO Calcium [Mass/Vol] 8.7 mg/dL Normal 8.6-10.4 [facility] Comment on above: Performed By: #### C DP, CRP, CP, TROPI, HCG, LD #### [facility] [address] [place] [address] Front Elevator Operator: Christopher Dorsey DO Chloride [Moles/Vol] 110 mmol/L High 98-107 [facility] Comment on above: Performed By: #### C DP, CRP, CP, TROPI, HCG, LD #### [facility] [address] [place] [address] Front Elevator Operator: Christopher Dorsey DO CO2 [Moles/Vol] 18 mmol/L Low 20-31 [facility] Comment on above: Performed By: #### C DP, CRP, CP, TROPI, HCG, LD #### [facility] [address] [place] [address] Front Elevator Operator: Christopher Dorsey DO Creatinine [Mass/Vol] 0.62 mg/dL Normal 0.50-0.90 [facility] Comment on above: Performed By: #### C DP, CRP, CP, TROPI, HCG, LD #### [facility] [address] [place] [address] Front Elevator Operator: Christopher Dorsey DO GFR, Amer >60 Normal >60 [facility] Comment on above: Performed By: #### C DP, CRP, CP, TROPI, HCG, LD #### [facility] [address] [place] [address] Front Elevator Operator: Christopher Dorsey DO GFR,non Amer >60 Normal >60 [facility] Comment on above: Performed By: #### C DP, CRP, CP, TROPI, HCG, LD #### [facility] [address] [facility] [place] [address] Front Elevator Operator: Christopher Dorsey DO Glucose [Mass/Vol] 84 mg/dL Normal 70-99 [facility] Comment on above: Performed By: #### C DP, CRP, CP, TROPI, HCG, LD #### [facility] [address] [place] [address] Front Elevator Operator: Christopher Dorsey DO Potassium [Moles/Vol] 3.9 mmol/L Normal 3.7-5.3 [facility] Comment on above: Performed By: #### C DP, CRP, CP, TROPI, HCG, LD #### [facility] [address] [place] [address] Front Elevator Operator: Christopher Dorsey DO Protein [Mass/Vol] 6.3 g/dL Low 6.4-8.3 [facility] Comment on above: Performed By: #### C DP, CRP, CP, TROPI, HCG, LD #### [facility] [address] [place] [address] Front Elevator Operator: Christopher Dorsey DO Sodium [Moles/Vol] 140 mmol/L Normal 135-144 [facility] Comment on above: Performed By: #### C DP, CRP, CP, TROPI, HCG, LD #### [facility] [address] [place] [address] Front Elevator Operator: Christopher Dorsey DO Urea nitrogen [Mass/Vol] 11 mg/dL Normal 6-20 [facility] Comment on above: Performed By: #### C DP, CRP, CP, TROPI, HCG, LD #### [facility] [address] [facility] [place] [place] [address] Front Elevator Operator: Christopher Dorsey DO Albumin/Globulin [Mass ratio] NOT REPORTED Normal 1.0-2.5 [facility] Comment on above: Performed By: #### C DP, CRP, CP, TROPI, HCG, LD #### [facility] [address] [facility] [place] [address] Front Elevator Operator: Christopher Dorsey DO BUN/CRE Ratio NOT REPORTED Normal 9-20 [facility] Comment on above: Performed By: #### C DP, CRP, CP, TROPI, HCG, LD #### [facility] [address] [facility] [place] [place] [address] Front Elevator Operator: Christopher Dorsey DO Staging: NOT REPORTED Normal [facility] Comment on above: Performed By: #### C DP, CRP, CP, TROPI, HCG, LD #### [facility] [address] [place] [address] Front Elevator Operator: Christopher Dorsey DO Comprehensive Metabolic Pane kimber 03-01-2020 Albumin [Mass/Vol] 3.7 g/dL 3.5 - 5.2 g/dL [place] Albumin/Globulin [Mass ratio] NOT REPORTED [place] ALP [Catalytic activity/Vol] 67 U/L 35 - 104 U/L [place] ALT [Catalytic activity/Vol] 12 U/L 5 - 33 U/L [place] Anion gap [Moles/Vol] 12 mmol/L 9 - 17 mmol/L [place] AST [Catalytic activity/Vol] 13 U/L <32 [place] Bilirubin Ql (U) <0.15 Low 0.3 - 1.2 mg/dL [place] Bun/Cre Ratio NOT REPORTED [place] Calcium [Mass/Vol] 8.7 mg/dL 8.6 - 10. 4 mg/dL [place] Chloride [Moles/Vol] 110 mmol/L High 98 - 10 7 mmol/L [place] CO2 [Moles/Vol] 18 mmol/L Low 20 - 31 mmol/L [place] Creatinine [Mass/Vol] 0.62 mg/dL 0.5 - 0.9 mg/dL [place] GFR >60 >60 mL/min [place], [place] GFR Non- >60 >60 mL/min [place] GFR/1.73 sq M predicted among non-blacks MDRD (S/P/Bld) [Vol rate/Area] NOT REPORTED [place] GFR/1.73 sq M predicted among non-blacks MDRD (S/P/Bld) [Vol rate/Area] [place] Comment on above: Average GFR for 30-3 9 years old: 107 mL/min/1.73sq m Chronic Kidney Disease: <60 mL/min/1.73sq m Kidney failure: <15 mL/min/1.73sq m eGFR calculated using average adult body mass. Additional eGFR calculator available at: http://www.Partly/multiple_crcl_2012.htm Glucose [Mass/Vol] 84 mg/dL 70 - 99 mg/dL [place] Interpretation and review of laboratory results Abnormal [place] Potassium [Moles/Vol] 3.9 mmol/L 3.7 - 5.3 mmol/L [place] Protein [Mass/Vol] 6.3 g/dL Low 6.4 - 8.3 g/dL [place] Sodium [Moles/Vol] 140 mmol/L 135 - 144 mmol/L [place] Urea nitrogen [Mass/Vol] 11 mg/dL 6 - 20 mg/dL [place] HCG Screen, Bloodon 03-01-20 20 HCG Qn Negative Normal NEG [facility] Comment on above: Result Comment: Spec imens with hCG levels near the threshold of the test (25 mIU/mL) may give a negative or indeterminate result. In such cases, another test should be performed with a new specimen in 48-72 hours. If early is suspected clinically in this setting, correlation with quantitative serum b-hCG level is suggested. Performed By: #### C DP, CRP, CP, TROPI, HCG, LD #### [facility] [address] [place] [address] Front Elevator Operator: Christopher Dorsey, hCG Qual Negative NEGATIVE [place] Comment on above: Specimens with hCG l evels near the threshold of the test (25 mIU/mL) may give a negative or indeterminate result. In such cases, another test should be performed with a new specimen in 48-72 hours. If early is suspected clinically in this setting, correlation with quantitative serum b-hCG level is suggested. LACTATE DEHYDROGENASEon 02-04 Interpretation and review of laboratory results Abnormal [place] LD 101 U/L Low 135 - 214 U/L [place] Lactate Dehydrogenaseon 02-04 LDH [Catalytic activity/Vol] 101 U/L Low 135-214 [facility] Comment on above: Performed By: #### C DP, CRP, CP, TROPI, HCG, LD #### [facility] [address] [facility] [place] [address] Front Elevator Operator: Christopher Dorsey DO Otheron 03-01-2020 Immature granulocytes (Bld) [#/Vol] NOT REPORTED [place] Troponinon 03-01-2020 Troponin I.cardiac [Mass/Vol] ng/mL Normal 0-14 [facility] Comment on above: Result Comment: High Sensitivity Troponin values cannot be compared with other Troponin methodologies. Patients with high levels of Biotin oral intake (i.e >5mg/day) may have falsely decreased Troponin levels. Samples collected within 8 hours of biotin intake may require additional information for diagnosis. Performed By: #### T ELMO #### [facility] [address] [facility] [place] [place] [address] Front Elevator Operator: Christopher Dorsey DO Troponin I.cardiac [Mass/Vol] NOT REPORTED Normal <0.03 [facility] Comment on above: Performed By: #### T ELMO #### [facility] [address] [facility] [place] [place] [address] Front Elevator Operator: Christopher Dorsey DO Troponin I.cardiac [Mass/Vol] ng/mL Normal 0-14 [facility] Comment on above: Result Comment: High Sensitivity Troponin values cannot be compared with other Troponin methodologies. Patients with high levels of Biotin oral intake (i.e >5mg/day) may have falsely decreased Troponin levels. Samples collected within 8 hours of biotin intake may require additional information for diagnosis. Performed By: #### C DP, CRP, CP, TROPI, HCG, LD #### [facility] [address] [place] [address] Front Elevator Operator: Christopher Dorsey DO Troponin I.cardiac [Mass/Vol] NOT REPORTED [place] Troponin T.cardiac [Mass/Vol] NOT REPORTED <0.03 ng/mL [place] Troponin, High Sensitivity <6 0 - 14 ng/L [place] Comment on above: High Sensitivity Troponin values cannot be compared with other Troponin methodologies. Patients with high levels of Biotin oral intake (i.e >5mg/day) may have falsely decreased Troponin levels. Samples collected within 8 hours of biotin intake may require additional information for diagnosis. Troponin I.cardiac [Mass/Vol] NOT REPORTED Normal [facility] Comment on above: Performed By: #### C DP, CRP, CP, TROPI, HCG, LD #### [facility] [address] [place] [address] Front Elevator Operator: Christopher Dorsey DO Troponin I.cardiac [Mass/Vol] NOT REPORTED [place] Troponin T.cardiac [Mass/Vol] NOT REPORTED <0.03 ng/mL [place] Troponin, High Sensitivity <6 0 - 14 ng/L [place] Comment on above: High Sensitivity Troponin values cannot be compared with other Troponin methodologies. Patients with high levels of Biotin oral intake (i.e >5mg/day) may have falsely decreased Troponin levels. Samples collected within 8 hours of biotin intake may require additional information for diagnosis. XR CHEST PORTABLEon 03-01-20 XR CHEST PORTABLE EXAMINATION: ONE XRAY VIEW OF THE CHEST 03/01/2020 9:46 am COMPARISON: None. HISTORY: ORDERING SYSTEM PROVIDED HISTORY: Cough TECHNOLOGIST PROVIDED HISTORY: Cough Reason for Exam: Pt states left chest pain, SOB 3 days Acuity: Acute Type of Exam: Initial FINDINGS: There is no acute consolidation or effusion. There is no pneumothorax. The mediastinal structures are unremarkable. The upper abdomen is unremarkable. The extrathoracic soft tissues are unremarkable. There is no acute osseous abnormality. IMPRESSION: No acute cardiopulmonary process. Interpreted by: Wilfredo Andrade MD Signed by: Wilfredo Andrade MD 03/01/20 Final result Normal [facility] No acute cardiopulmonary process. [place] Kyle, Mhpn Incoming Radiant Results From [employer] - 03/01/2020 10:19 AM EDT EXAMINATION: ONE XRAY VIEW OF THE CHEST 03/01/2020 9:46 am COMPARISON: None. HISTORY: ORDERING SYSTEM PROVIDED HISTORY: Cough TECHNOLOGIST PROVIDED HISTORY: Cough Reason for Exam: Pt states left chest pain, SOB 3 days Acuity: Acute Type of Exam: Initial FINDINGS: There is no acute consolidation or effusion. There is no pneumothorax. The mediastinal structures are unremarkable. The upper abdomen is unremarkable. The extrathoracic soft tissues are unremarkable. There is no acute osseous abnormality. IMPRESSION: No acute cardiopulmonary process. [place] EXAMINATION: ONE XRA Y VIEW OF THE CHEST 03/01/2020 9:46 am COMPARISON: None. HISTORY: ORDERING SYSTEM PROVIDED HISTORY: Cough TECHNOLOGIST PROVIDED HISTORY: Cough Reason for Exam: Pt states left chest pain, SOB 3 days Acuity: Acute Type of Exam: Initial FINDINGS: There is no acute consolidation or effusion. There is no pneumothorax. The mediastinal structures are unremarkable. The upper abdomen is unremarkable. The extrathoracic soft tissues are unremarkable. There is no acute osseous abnormality. [place] Vital Signs Date Time Vital Sign Value Performing Clinician Kristiani shine 03-01-2020 12:15-0400 BP Diastolic 57 mm[Hg] [place] 03-01-2020 12:15-0400 BP Systolic 98 mm[Hg] [place] 03-01-2020 12:15-0400 Pulse (Heart Rate) 61 /min [place] 03-01-2020 12:15-0400 Pulse Oximetry 100 % [place] 03-01-2020 12:15-0400 Respiratory Rate 14 /min [place] 03-01-2020 09:00-0400 BMI (Body Mass Index) 31.76 kg/m2 [place] 03-01-2020 09:00-0400 Body Temperature 97.9 [degF] [place] 03-01-2020 09:00-0400 Body weight 83.92 kg [place] 03-01-2020 09:00-0400 Height 162.6 cm [place] Encounters Encounter Date Encounter Type Care Provider Facility Start: 01-19-2023 ambulatory [facility] Facility:H1 Start: 01-11-2023 End: 01-11-2023 ambulatory [facility] Facility:H1 Start: 12-29-2022 ambulatory Jimmie Crawford DDS [facility] Start: 12-18-2022 End: 12-18-2022 ambulatory [facility] Facility:H1 Start: 11-12-2022 End: 11-13-2022 [facility] Facility:H1 Start: 11-02-2022 End: 11-02-2022 ambulatory [facility] Facility:H1 Start: 10-22-2022 End: 10-22-2022 ambulatory [facility] Facility:H1 Start: 09-06-2022 End: 09-06-2022 ambulatory GLENN JIN Facility:H1 Start: 08-05-2022 End: 08-05-2022 ambulatory Mukund Rodriguez Other [facility] Other Start: 08-05-2022 Telephone encounter Mukund Rodriguez [facility] Start: 06-28-2022 End: 06-28-2022 ambulatory NON STAFF Facility:[facility] Start: 06-28-2022 End: 06-28-2022 ambulatory NON STAFF [facility] Work Phone: Start: 06-28-2022 End: 06-28-2022 Patient encounter procedure MD Mukund Rodriguez Work Phone: [facility] Start: 06-18-2022 End: 06-18-2022 ambulatory Christopher Mendez Other [facility] Other Start: 06-18-2022 Telephone encounter Christopher Law ck [facility] Start: 05-17-2022 End: 05-17-2022 ambulatory [facility] Facility:H1 Start: 05-05-2022 End: 05-06-2022 ambulatory MUKUND RODRIGUEZ Facility:H1 Start: 05-04-2022 End: 05-04-2022 ambulatory Radha Arciniega Other [facility] Other Start: 05-04-2022 Office outpatient vi sit 15 minutes Radha Arciniega [facility] Start: 04-26-2022 End: 04-26-2022 ambulatory Mukund Olexa Other [facility] Other Start: 04-26-2022 Office outpatient vi sit 15 minutes Mukund Olexa [facility] Start: 04-20-2022 End: 04-20-2022 ambulatory Mukund Olexa Facility:[facility] Start: 04-20-2022 End: 04-20-2022 Patient encounter procedure MD Mukund Rodriguez Work Phone: [facility] [address] Start: 04-16-2022 End: 04-16-2022 ambulatory [facility] Facility:H1 Start: 04-15-2022 Encounter for preprocedural laboratory examination DR KARLOS MARRERO . [facility] Start: 04-13-2022 End: 04-14-2022 Encounter for preprocedural laboratory examination [facility] Facility:H1 Start: 04-13-2022 End: 04-14-2022 ambulatory [facility] Facility:H1 Start: 04-12-2022 End: 04-12-2022 ambulatory Mukund Olexa Other [facility] Other Start: 04-12-2022 Telephone encounter Mukund Olexa [facility] Start: 03-23-2022 End: 03-23-2022 ambulatory [facility] Facility:H1 Start: 03-19-2022 [facility] Facility:H1 Start: 03-08-2022 End: 03-08-2022 ambulatory [facility] Facility:H1 Start: 03-01-2022 End: 03-01-2022 ambulatory Mukund Olexa Other [facility] Other Start: 03-01-2022 Office outpatient ne w 45 minutes Mukund Olexa [facility] Start: 02-27-2022 End: 02-28-2022 ambulatory [facility] Facility:H1 Start: 02-23-2022 End: 02-23-2022 ambulatory [facility] Facility: Start: 03-01-2020 End: 03-01-2020 Emergency department patient visit PRINCESS HOYT [facility] Start: 03-01-2020 End: 03-01-2020 Emergency department patient visit Princess Hoyt Work Phone: [facility] ED Comment on above: Bronchitis (Primary Dx) Procedures Date Procedure Procedure Detail Performing Clinician Start: 04-20-2022 MRI of left knee MD Coppola Work Phone: Start: 03-01-2020 Assay of troponin quantitative PRINCESS HOYT Start: 03-01-2020 Radiologic exam ches t single view PRINCESS HOYT Start: 03-01-2020 Assay of troponin quantitative Princess Hoyt Work Phone: Start: 03-01-2020 Blood count complete auto&auto difrntl wbc PRINCESS HOYT Start: 03-01-2020 C-reactive protein EDER HOYT Start: 03-01-2020 Comprehensive metabo lic panel PRINCESS HOYT Start: 03-01-2020 Gonadotropin chorion ic qualitative PRINCESS HOYT Start: 03-01-2020 Lactate dehydrogenase ldh PRINCESS HOYT Start: 03-01-2020 Ecg routine ecg w/le ast 12 lds w/i&r PRINCESS HOYT Start: 03-01-2020 Radiologic exam ches t single view Princess Hoyt Work Phone: Start: 03-01-2020 Assay of troponin quantitative Princess Hoyt Work Phone: Start: 03-01-2020 Blood count complete auto&auto difrntl wbc Princess Hoyt Work Phone: Start: 03-01-2020 C-reactive protein Eder Hoyt Work Phone: Start: 03-01-2020 Comprehensive metabo lic panel Princess Hoyt Work Phone: Start: 03-01-2020 Gonadotropin chorion ic qualitative Princess Hoyt Work Phone: Start: 03-01-2020 Lactate dehydrogenase ldh Princess Hoyt Work Phone: Plan of Treatment Date Care Activity Detail Author Start: 05-06-2020 Influenza vaccination Flu vacc ine (Season Ended) [place] Start: 2005 Screening for malign ant neoplasm of cervix Cervical cancer [place] Start: 2003 DTaP/Tdap/Td vaccine (1 - Tdap) DTaP/Tdap/Td vaccine (1 - Tdap) [place] Start: 1999 HIV screening HIV screen [facility] [place] Start: 1990 Pneumococcal 0-64 ye ars Vaccine (1 of 1 - PPSV23) Pneumococcal 0-64 years Vaccine (1 of 1 - PPSV23) [place] Start: 1985 Varicella vaccine (1 of 2 - 2-dose childhood series) Varicella vaccine (1 of 2 - 2-dose childhood series) [place] EKG 12 Lead EKG 12 Lead ECG STAT 03/01/2020 9:20 AM EDT [place] Payers Date Payer Category Payer Worker's Compensation [id number] 2020 Medicaid [facility] [place] [facility] [place] [facility] xxxxxxxxxxxx 2020-Present [id number] [place] [id number] xxxxxxxxxxxx [id number] 1984 Unknown [id number] 2.16.840.1.411642.3.579.2. 176 1984 Unknown [id number] 2.16.840.1.126937.3.579.2. 593 1984 Unknown [id number] 2.16.840.1.876946.3.579.2. 593 1984 Unknown [id number] 2.16.840.1.382536.3.579.2. 593 1984 Unknown [id number] 2.16.840.1.957742.3.579.2. 593 1984 Unknown [id number] 2.16.840.1.270762.3.579.2. 593 1984 Unknown [id number] 2.16.840.1.935908.3.579.2. 593 1984 Unknown [id number] 2.16.840.1.513255.3.579.2. 593 1984 Unknown [id number] 2.16.840.1.137267.3.579.2. 593 1984 Unknown [id number] 2.16.840.1.445484.3.579.2. 593 1984 Unknown [id number] 2.16.840.1.515832.3.579.2. 593 1984 Unknown [id number] 2.16.840.1.604567.3.579.2. 593 1984 Unknown [id number] 2.16.840.1.378322.3.579.2. 593 1984 Unknown [id number] 2.16.840.1.515379.3.579.2. 593 1984 Unknown [id number] 2.16.840.1.358674.3.579.2. 593 1984 Unknown [id number] 2.16.840.1.211051.3.579.2. 593 1984 Unknown [id number] 2.16.840.1.349381.3.579.2. 593 1984 Unknown [id number] 2.16.840.1.629478.3.579.2. 593 1959 Medicaid [id number] 1959 Self-pay 1959 Unknown [id number] 2.16.840.1.671278.19 1959 Unknown [id number] 1959 Unknown [id number] Unknown [id number] 2.16.840.1.972538.19 Unknown [id number] 2.16.840.1.896272.19 Unknown [id number] 2.16.840.1.364963.3.579.2. 531 Unknown [id number] 2.16.840.1.765256.3.579.2. 531 Worker's Compensation [employer] [facility] [id number] Social History Date Type Detail Facility Start: 03-01-2020 Tobacco smoking status NHIS Current every day smoker [facility] [place] History of tobacco use Cigarette Smoker [facility] [place] Start: 03-01-2020 Alcohol intake Ex-drinker (finding) [facility] [place] Sex Assigned At Not on file [place] Exposure to SARS-CoV-2 (event) Unable to assess [place] Sex Assigned At Sex Assigned At Bir th [facility] Other Start: 1985 Sex Assigned At Female F [facility] Evaluation note 06-18-2022 Note Date & Type Note Facility 06-18-2022 Evaluation note Encounter Date Diagnosis Assessment Notes Jun, Dyspepsia (ICD-10 - R10.13) [facility] Other Evaluation note 05-04-2022 Note Date & Type Note Facility 05-04-2022 Evaluation note Encounter Date Diagnosis Assessment Notes Apr, Sprain of other ligament of left knee, initial encounter (ICD-10 - S83.8X2A) [facility], patient approved for cortisone injections today. Risks and benefits discussed in detail with patient. Patient voiced understanding and agreed to proceed with treatment plan. We performed a 1/1cc marcaine / kenalog cortisone injection into the knee joint under sterile technique. Patient tolerated the injection well without adverse reaction. Patient to continue off work at this time. [facility] Other Evaluation note 04-26-2022 Note Date & Type Note Facility 04-26-2022 Evaluation note Encounter Date Diagnosis Assessment Notes Apr, Sprain of other ligament of left knee, initial encounter (ICD-10 - S83.8X2A) MRI reviewed with patient as no surgical injuries. Advised based on exam and MRI, may have subluxed her patella at the time of the injury. Progress weight bearing as tolerated. Instructed on progression of motion and strengthening exercises. We will order formal physical therapy through [facility], as well as cortisone injection to decrease pain/inflammatio n. Patient to continue off work at this time. [facility] Other Clinical Note 04-16-2022 Note Date & Type Note Facility 04-16-2022 Note OPERATIVE NOTE OPERATION DATE: 04/16/2022 PROCEDURE: Melina endometrial ablation with diagnostic laparoscopy. PREOPERATIVE DIAGNOSIS: Menorrhagia, dyspareunia. POSTOPERATIVE DIAGNOSIS: Menorrhagia, dyspareunia. ANESTHESIA: General. SURGEON: Karlos Marrero D.O. DIRECTOR NEWS: ANDIE Jason URINE OUTPUT: Yellow and clear. BLOOD LOSS: 5 mL. FINDINGS: Normal appearing cavity. No gross evidence of polyps, fibroids, malignancy. Evidence of bilateral tubal ligation. Normal appearing ovaries. Normal appearing uterus. There was, however, a small hernia noted inferior to the umbilicus, where the omentum was acting as a nature plug. The omentum was ligated and released using the LigaSure. PROCEDURE: The patient was taken back to the OR where she was prepped and draped in the normal sterile fashion after being placed in the dorsal lithotomy position, after being placed under general anesthesia without difficulty. A weighted speculum was placed into the vagina. The anterior lip was grasped with a single tooth tenaculum. The patient was then sounded to approximated 8 cm. The patient's cervix was gently dilated using Hegar dilators. The hysteroscope was passed through the cervix into the uterus where both ostia were seen. No gross evidence of polyps, fibroids or malignancy. The cervical length was noted to be 4 cm. The total cavity length is 4 cm. The Melina ablation apparatus was set to approximately 4 cm in length. This was placed through the cervix and into the uterus. After the seal was tested, at that time the total ablation of 120 seconds was performed with the Melina without difficulty. All instruments were removed from the vagina. Excellent hemostasis noted. Sponge and lap count correct times 2. Patient taken to recovery in stable condition. The patient was taken back to the Operating Room where she was placed in dorsal lithotomy position after given general anesthesia. The patient was prepped and draped in normal sterile fashion. A sponge stick was placed into the patient's vagina. Attention was turned to the patient's abdomen, where a small umbilical incision was made. The fascia was tented using Brisa clamps and the fascia was entered sharply. Confirmation of intra-abdominal placement of the 10 mm port was confirmed under direct visualization using a laparoscope. The patient's abdomen was then insufflated using CO2 gas with approximately 4 liters. A second port was placed left laterally, this was done under direct visualization with a 5 mm port. Survey of the patient's abdomen demonstrated normal liver and gallbladder. Survey of the patient's pelvic anatomy demonstrated normal appearing ovaries and tubes as well as normal appearing uterus. No endometrial implants could be noted, no evidence of any pelvic disease was seen, normal appearing pelvic cavity. All instruments were removed from the patient's abdomen. The patient's abdomen was desufflated of CO2 gas. The patient tolerated the procedure well. Sponge stick was removed from the patient's vagina. The patient's infraumbilical fascia was closed using #0 Vicryl on a GI needle. The patient's skin was closed laterally and infraumbilically using 4-0 Vicryl. The patient tolerated the procedure well. Sponge, lap and needle counts were correct x 2. The patient was taken to Recovery Room in stable condition. : [facility] Evaluation note 04-12-2022 Note Date & Type Note Facility 04-12-2022 Evaluation note Encounter Date Diagnosis Assessment Notes Apr, Sprain of other ligament of left knee, initial encounter (ICD-10 - S83.8X2A) [facility] Other Evaluation note 03-01-2022 Note Date & Type Note Facility 03-01-2022 Evaluation note Encounter Date Diagnosis Assessment Notes Feb, Sprain of other ligament of left knee, initial encounter (ICD-10 - S83.8X2A) I am concerned about a potential meniscal tear that will not improve with conservative and non-operative treatments. Continued active use of the knee can lead to worsening of the condition and lead to irreversible damage to the knee. An MRI of the knee will be necessary to identify the source of pain and plan potential surgical treatment. Discussed with patient we will submit for approval for her MRI. Patient is to be off work [facility] Other Evaluation note Note Date & Type Note Facility Evaluation note No assessment information availa bret [facility] Work Phone: Evaluation note Note Date & Type Note Facility Evaluation note No Information [employer] [facility] [place] Other History general Narrative - Reported Note Date & Type Note Facility History general Narrative - Reported Type Medical History endometriosis Surgical History c-sections x2 Surgical History apendectomy Surgical History hernia removal Hospitalization History see above [facility] Other Summary Purpose Family History No Family History Records FoundNo Family History Records FoundNo Family History Records FoundNo Family History Records Found Advance Directives No Advanced Directives Records FoundDocuments on File Type Date Recorded 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 Please follow up with your primary care physician (PCP) by calling tomorrow for the next available appointment. If you do not have a PCP please establish care by calling the clinic or a physician listed below. Please return to emergency department sooner if you develop any worsening symptoms, uncontrolled fevers, uncontrolled vomiting, or any other concerns. * Attachments The following attachments cannot be sent through Care Everywhere. * Bronchitis (Norwegian) documented in this encounter Assessments Diagnosis Bronchitis Bronchitis, not specified as acute or chronic Chief Complaint and Reason for Visit Chief Complaint s83.8x2a Dyspepsia Additional Source Comments INFORMATION SOURCE (unrecogn ized section and content) DATE CREATED AUTHOR 03/27/2020 [facility] DATE CREATED AUTHOR AUTHOR'S ORGANIZ ATION 07/06/2022 [facility] DATE CREATED AUTHOR AUTHOR'S ORGANIZ ATION 12/31/2022 [facility] [employer] [facility] DATE CREATED AUTHOR AUTHOR'S ORGANIZ ATION 01/20/2023 [facility] Reason for Visit (unrecogniz ed section and content) Reason Comments Cough pt reports lung pain Abdominal Pain Headache Care Teams (unrecognized sec tion and content) Team Status: Inactive Member Role Status Dates NON STAFF Primary Care Provider Active Christopher Mendez MD Attending Provider Active Team Status: Inactive Member Role Status Dates Mukund Rodriguez MD Attending Provider Active NON STAFF Primary Care Provider Active Team Status: Active Member Role Status Dates NON STAFF Primary Care Provider Active Goals (unrecognized section and content) Goals may be documented in a n alternate section FOR RECORDS PERTAINING TO PATIENTS WHO ARE OR HAVE BEEN ENROLLED IN A CHEMICAL DEPENDENCY/SUBSTANCEABUSE PROGRAM, SOME INFORMATION MAY BE OMITTED. This clinical summary was aggregated from multiple sources. Caution should be exercised in using it in the provision of clinical care. This summary normalizes information from multiple sources, and as a consequence, information in this document may materially change the coding, format and clinical context of patient data. In addition, data may be omitted in some cases. CLINICAL DECISIONS SHOULD BE BASED ON THE PRIMARY CLINICAL RECORDS. [facility] [employer] provides no warranty or guarantee of the accuracy or completeness of information in this document.
[2023-11-07 06:37] LABS: Influenza Virus A Antigen Negative; Influenza Virus B Antigen Negative; Internal Control Within Normal Limits
[2023-11-07] MEDS: KETOROLAC TROMETHAMINE 30 MG/ML VIAL IVP (06:50)
[2023-11-07] MEDS: 0.9 % SODIUM CHLORIDE 1,000 ML 1000 ML IV (06:50)
[2023-11-07] MEDS: METHYLPREDNISOLONE SOD SUCC PF 125 MG/2 ML VIAL IVP (06:50)
[2023-11-07] MEDS: ONDANSETRON PF 4 MG/2 ML VIAL IV (06:50)
[2023-11-07 07:25] LABS: Basophils Percent Auto 0.4 % (0.2-2.0); Eosinophils Percent Auto 0.8 % (0.9-7.0); Hemoglobin 12.3 g/dL (12.0-16.0); Immature Granulocytes Abs Auto 0.01 10^3/uL (0.00-0.03); Immature Granulocytes Pct Auto 0.2 % (0.0-0.5); Lymphocytes Absolute Auto 0.6 10^3/uL (1.2-3.8); Lymphocytes Percent Auto 11.7 % (20.5-60.0); Mean Corpuscular HGB Conc 32.4 g/dL (29.9-35.2); Mean Corpuscular Hemoglobin 29.8 pg (26.7-34.0); Mean Platelet Volume 9.9 fL (9.5-13.5); Monocytes Absolute Auto 0.5 10^3/uL (0.3-0.8); Monocytes Percent Auto 9.4 % (1.7-12.0); Neutrophils Percent Auto 77.5 % (43.0-75.0); Platelet Count 249 10^3/uL (150-450); Red Blood Count 4.13 10^6/uL (4.20-5.40); Red Cell Distribution Width 12.6 % (11.0-15.0); White Blood Count 5.1 10^3/uL (4.0-11.0)
[2023-11-07] MEDS: IPRATROPIUM/ALBUTEROL SULFATE 3 ML AMPUL.NEB IH (07:49)
[2023-11-07 07:50] VITALS: PULSE 75; RESP 16
[2023-11-07 07:52] LABS: Alanine Aminotransferase 38 U/L (14-59); Albumin Globulin Ratio 0.8; Albumin Level 3.1 g/dL (3.4-5.0); Alkaline Phosphatase 103 U/L (46-116); Anion Gap 15.2; Aspartate Amino Transferase 22 U/L (15-37); BUN Creatinine Ratio 7.1; Bilirubin Total 0.2 mg/dL (0.2-1.0); Calcium 8.2 mg/dL (8.5-10.1); Carbon Dioxide 23.5 mmol/L (21.0-32.0); Chloride 102 mmol/L (98-107); Estimated GFR (African America >60 (>=60); Estimated GFR (Non-African Ame >60 (>=60); Globulin 3.7 g/dL; Glucose 106 mg/dL (74-106); Potassium 3.7 mmol/L (3.5-5.1); Sodium 137 mmol/L (136-145); Total Protein 6.8 g/dL (6.4-8.2)
[2023-11-07 07:58] LABS: Troponin I High Sensitivity <4.0 pg/mL (4.0-51.3)
[2023-11-07 08:09] LABS: Adenovirus NOT DETECTED (NOT DETECTE); Bordetella parapertussis NOT DETECTED (NOT DETECTE); Coronavirus 229E NOT DETECTED (NOT DETECTE); Coronavirus HKU1 NOT DETECTED (NOT DETECTE); Coronavirus NL63 NOT DETECTED (NOT DETECTE); Coronavirus OC43 NOT DETECTED (NOT DETECTE); Human Metapneumovirus NOT DETECTED (NOT DETECTE); Human Rhinovirus/Enterovirus NOT DETECTED (NOT DETECTE); Influenza A NOT DETECTED (NOT DETECTE); Mycoplasma pneumoniae NOT DETECTED (NOT DETECTE); Parainfluenza Virus 2 NOT DETECTED (NOT DETECTE); Parainfluenza Virus 3 NOT DETECTED (NOT DETECTE); Parainfluenza Virus 4 NOT DETECTED (NOT DETECTE); Respiratory Syncytial Virus NOT DETECTED (NOT DETECTE); SARS-CoV-2 NOT DETECTED (NOT DETECTE)
[2023-11-07 09:01] LABS: Influenza B DETECTED (NOT DETECTE)
[2023-11-07 09:02] LABS: Parainfluenza Virus 1 NOT DETECTED (NOT DETECTE)
== END 2023-11-07 09:28 | disposition home or self-care (01) ==
PROVIDERS: Emergency Medicine; Emergency Provider Emergency Medicine Emergency Medical Services
DX: J10.00 Influenza due to other identified influenza virus with unspecified type of pneumonia (principal); F41.9 Anxiety disorder, unspecified; G47.30 Sleep apnea, unspecified; K21.9 Gastro-esophageal reflux disease without esophagitis; F17.210 Nicotine dependence, cigarettes, uncomplicated; Z98.890 Other specified postprocedural states; Z90.79 Acquired absence of other genital organ(s); F12.90 Cannabis use, unspecified, uncomplicated; Z87.442 Personal history of urinary calculi; Z79.899 Other long term (current) drug therapy; Z86.718 Personal history of other venous thrombosis and embolism; Z86.16 Personal history of COVID-19; Z98.891 History of uterine scar from previous surgery; Z90.49 Acquired absence of other specified parts of digestive tract; Z87.01 Personal history of pneumonia (recurrent); J44.0 Chronic obstructive pulmonary disease with (acute) lower respiratory infection; Z20.822 Contact with and (suspected) exposure to COVID-19
CPT/HCPCS: 0202U; 36415; 71046; 80053; 83690; 84484; 85025; 87804; 93005; 94640; 96361; 96374; 96375; 99285; 99406; J2930

== ENCOUNTER 2023-11-09 15:09 | Emergency (ER) | payer OTHER, SELFPAY ==
[2023-11-09] VITALS (11 sets, daily range): BP systolic 118–150; BP diastolic 77–88; PULSE 94–129; RESP 16–26; TEMP 36.9; O2SAT 93–98; BMI 32.6
--- NOTE | 2023-11-09 15:31 | ECG_ITS ---
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
--- NOTE | 2023-11-09 15:33 | ED_ITS ---
Documented by User: PERCY Alfaro 11/09/23 18:26 HPI - SOB/Dyspnea General Chief Complaint: Shortness of Breath/Dyspnea Time Seen by Provider: 11/09/23 15:28 Source: patient Mode of arrival: Wheelchair History of Present Illness HPI Narrative: Patient is a 38-year-old female with a history of COPD who presents to the emergency department for increasing difficulty breathing today. She was seen in this emergency department 2 days ago and diagnosed with influenza B. She states she is having burning, pleuritic pain in the chest associated with shortness of breath. She states she was prescribed steroids and has been using her inhalers without improvement. She reports intermittent subjective fevers, vomiting. She is not concerned for . She has had no hemoptysis or significant sputum production. She reports significant pain with coughing. Related Data Home Medications Medication Instructions Recorded Confirmed albuterol sulfate 2.5 mg/3 mL 2.5 mg inhalation Q6H 11/07/23 11/07/23 (0.083 %) solution for nebulization budesonide-formoterol HFA 160 1 puff inhalation Q12H 11/07/23 11/07/23 mcg-4.5 mcg/actuation aerosol inhaler (Symbicort) cariprazine 1.5 mg capsule 1.5 mg PO Q24H 11/07/23 11/07/23 (Vraylar) lamotrigine 25 mg tablet 25 mg PO DAILY 11/07/23 11/07/23 sertraline 50 mg tablet 50 mg PO Q24H 11/07/23 11/07/23 Previous Rx's Medication Instructions Recorded yfvexmgexwhtuno-uunzonyuvdktlhj-XR 10 ml PO Q6H PRN cold symptoms 11/09/23 2 mg-30 mg-10 mg/5 mL oral syrup #200 mL (Bromfed DM) doxycycline hyclate 100 mg tablet 100 mg PO BID 10 days #20 tabs 11/09/23 ondansetron 4 mg disintegrating 4 mg PO Q6H PRN nausea and 11/09/23 tablet vomiting #12 tabs Allergies Allergy/AdvReac Type Severity Reaction Status Date / Time fentanyl Allergy hallucinati Verified 11/07/23 06:00 on Review of Systems ROS Constitutional Reports: fever and chills Ears, nose, mouth, and throat Reports: throat pain and nasal congestion Cardiovascular Reports: chest pain Respiratory Reports: shortness of breath and cough Gastrointestinal Reports: nausea and vomiting Musculoskeletal Denies: back pain or neck pain Integumentary/Breast Denies: rash Neurological Reports: headache Hematologic/Lymphatic Denies: easy bruising or easy bleeding PFSH [facility] Medical History (Updated 11/09/23 @ 18:22 by PERCY Alfaro) History of blood transfusion ?Z92.89 - Personal history of other medical treatment (ICD-10) Anemia ?D64.9 - Anemia, unspecified (ICD-10) Deep vein thrombosis ?I82.409 - Acute embolism and thrombosis of unspecified deep veins of unspecified lower extremity (ICD-10) Insomnia ?G47.00 - Insomnia, unspecified (ICD-10) Panic attacks ?F41.0 - Panic disorder [episodic paroxysmal anxiety] (ICD-10) Anxiety ?F41.9 - Anxiety disorder, unspecified (ICD-10) COVID-19 ?U07.1 - COVID-19 (ICD-10) Sleep apnea ?G47.30 - Sleep apnea, unspecified (ICD-10) Pneumonia ?J18.9 - Pneumonia, unspecified organism (ICD-10) Bronchitis ?J40 - Bronchitis, not specified as acute or chronic (ICD-10) Asthma ?J45.909 - Unspecified asthma, uncomplicated (ICD-10) Seizures ?R56.9 - Unspecified convulsions (ICD-10) Migraine ?G43.909 - Migraine, unspecified, not intractable, without status migrainosus (ICD-10) Kidney stones ?N20.0 - Calculus of kidney (ICD-10) Heartburn ?R12 - Heartburn (ICD-10) GERD (gastroesophageal reflux disease) ?K21.9 - Gastro-esophageal reflux disease without esophagitis (ICD-10) Bradycardia associated with anesthesia Abnormal uterine bleeding ?N93.9 - Abnormal uterine and vaginal bleeding, unspecified (ICD-10) Pelvic pain ?R10.2 - Pelvic and perineal pain (ICD-10) Menorrhagia ?N92.0 - Excessive and frequent menstruation with regular cycle (ICD-10) Dysmenorrhea ?N94.6 - Dysmenorrhea, unspecified (ICD-10) Delayed recovery from anesthesia Surgical History (Updated 02/09/23 @ 12:49 by Sherita Jean NP) H/O lithotripsy ?Z98.890 - Other specified postprocedural states (ICD-10) History of endometrial ablation ?Z98.890 - Other specified postprocedural states (ICD-10) History of cholecystectomy ?Z90.49 - Acquired absence of other specified parts of digestive tract (ICD- 10) History of bilateral salpingectomy ?Z90.79 - Acquired absence of other genital organ(s) (ICD-10) History of section ?Z98.891 - History of uterine scar from previous surgery (ICD-10) History of appendectomy ?Z90.49 - Acquired absence of other specified parts of digestive tract (ICD- 10) History of dilation and curettage ?Z98.890 - Other specified postprocedural states (ICD-10) Family History (Updated 02/09/23 @ 12:44 by Sherita Jean NP) Other Family history of COPD (chronic obstructive pulmonary disease) Family history of DVT Family history of breast cancer Family history of heart disease Family history of hypertension Family history of myocardial infarction Family history of ovarian cancer Family history of stroke Family history of uterine cancer Social History Within the past year, how often did you have a drink containing alcohol: monthly or less Smoking status: Current every day smoker Non-prescribed substance use: cannabis (any form) Previous occupational history: [employer] Highest level of school completed/degree received: high school graduate Gender Identity: female Exam Narrative Exam Narrative: Gen.: Awake, alert, in no distress Head: Normocephalic, atraumatic ENT: Moist mucous membranes Respiratory: No respiratory distress, Pain with inspiration, faint expiratory wheezing in the bilateral bases Cardio: Regular rate and rhythm Extremities: Moves extremities equally Psych: Normal mood and affect Neuro: No focal neuro deficit Skin: Warm, dry, intact Constitutional Vital Signs, click to edit/add: Last Vital Signs Temp 98.4 F 11/09/23 17:44 Pulse 94 H 11/09/23 17:30 Resp 20 11/09/23 17:30 BP 150/81 H 11/09/23 17:30 Pulse Ox 95 11/09/23 17:30 O2 Del Method Room Air 11/09/23 15:46 Course Vital Signs Vital signs: Vital Signs Pulse Rate 129 H 11/09/23 15:13 Respiratory Rate 24 11/09/23 15:13 Blood Pressure 141/88 11/09/23 15:13 Pulse Oximetry 95 11/09/23 15:13 Oxygen Delivery Method Room Air 11/09/23 15:13 Temperature 98.4 F 11/09/23 17:44 Pulse Rate 94 H 11/09/23 17:30 Respiratory Rate 20 11/09/23 17:30 Blood Pressure 150/81 H 11/09/23 17:30 Pulse Oximetry 95 11/09/23 17:30 Oxygen Delivery Method Room Air 11/09/23 15:46 MDM - SOB/Dyspnea MDM Narrative Medical decision making narrative: Patient was sent for CT angio of the chest with elevated D-dimer. The remainder of her labs, EKG are unremarkable. She was treated with IV fluids, Zofran, Toradol, Solu-Medrol, breathing treatments. She maintains pulse oximetry in the ER, no hypoxia or oxygen demands. CT angio of the chest shows bibasilar patchy opacities consistent with pneumonia, likely from her influenza infection. Given her history of COPD, she is placed on doxycycline, Bromfed-DM. She is on steroids for home. Zofran given as needed. Follow-up with pulmonology and PCP and return to the ER if symptoms change or worsen Patient reevaluated by attending physician prior to discharge Medical Records Attestation: I reviewed the patient's medical records. Lab Data Labs: Lab Results 11/09/23 Range/Units 15:34 WBC 5.5 (4.0-11.0) 10^3/uL RBC 4.56 (4.20-5.40) 10^6/uL Hgb 13.4 (12.0-16.0) g/dL Hct 41.9 (36.0-48.0) % MCV 91.9 (81.0-99.0) fL MCH 29.4 (26.7-34.0) pg MCHC 32.0 (29.9-35.2) g/dL RDW 12.7 (11.0-15.0) % Plt Count 248 (150-450) 10^3/uL MPV 9.9 (9.5-13.5) fL Neut % (Auto) 74.1 (43.0-75.0) % Lymph % (Auto) 18.8 L (20.5-60.0) % [place] % (Auto) 6.5 (1.7-12.0) % Eos % (Auto) 0.0 L (0.9-7.0) % Baso % (Auto) 0.4 (0.2-2.0) % Neut # (Auto) 4.1 (1.4-6.5) 10^3/uL Lymph # (Auto) 1.0 L (1.2-3.8) 10^3/uL [place] # (Auto) 0.4 (0.3-0.8) 10^3/uL Eos # (Auto) 0.0 (0.0-0.7) 10^3/uL Baso # (Auto) 0.0 (0.0-0.1) 10^3/uL Abs Immat Gran (auto) 0.01 (0.00-0.03) 10^3/uL Imm/Tot Granulo (auto) 0.2 (0.0-0.5) % PT 9.7 (9.0-11.6) sec INR <0.93 APTT 33.2 (22.3-36.2) sec D-Dimer 0.91 H* (<=0.59) mg/L FEU VBG pH 7.428 (7.330-7.430) VBG pCO2 36.6 L (40.0-52.0) mmHg Sodium 136 (136-145) mmol/L Potassium 3.4 L (3.5-5.1) mmol/L Chloride 104 (98-107) mmol/L Carbon Dioxide 24.3 (21.0-32.0) mmol/L Anion Gap 11.1 BUN 4.0 L (7.0-18.0) mg/dL Creatinine 0.88 (0.55-1.02) mg/dL Est GFR ( Amer) >60 (>=60) Est GFR (Non-Af Amer) >60 (>=60) BUN/Creatinine Ratio 4.5 Glucose 97 (74-106) mg/dL Calcium 8.4 L (8.5-10.1) mg/dL Total Bilirubin 0.2 (0.2-1.0) mg/dL AST 27 (15-37) U/L ALT 31 (14-59) U/L Alkaline Phosphatase 102 (46-116) U/L Troponin I High Sens <4.0 L (4.0-51.3) pg/mL NT-Pro-B Natriuret Pep 62.0 (<=450.0) pg/mL Total Protein 7.1 (6.4-8.2) g/dL Albumin 3.1 L (3.4-5.0) g/dL Globulin 4.0 g/dL Albumin/Globulin Ratio 0.[address] scan - chest: Attestation: I have reviewed the pertinent imaging results. Radiologist's impression: ITS Impressions Chest CTA 11/09/23 17:03 IMPRESSION: 1. No pulmonary embolism. 2. Patchy bilateral airspace opacities likely represent pneumonia. 3. Left apical pulmonary nodule is not significant changed although remains indeterminate for malignancy. Recommend follow-up chest CT in one year. 4. Mediastinal and left hilar lymphadenopathy is not substantially changed. Electronically authenticated by: PAWAN ROCHE Date: 11/09/2023 17:55 Discharge Plan Discharge Chief Complaint: Shortness of Breath/Dyspnea Clinical Impression: Influenza B, Shortness of breath, Pneumonia Patient Disposition: Home, Self-Care Time of Disposition Decision: 18:22 Condition: Good Prescriptions / Home Meds: New sdjijoonujzyqfb-aleupoyxc-PU [Bromfed DM] 2-30-10 mg/5 mL syrup 10 ml PO Q6H PRN (Reason: cold symptoms) Qty: 200 0RF ondansetron 4 mg tablet,disintegrating 4 mg PO Q6H PRN (Reason: nausea and vomiting) Qty: 12 0RF doxycycline hyclate 100 mg tablet 100 mg PO BID 10 Days Qty: 20 0RF No Action albuterol sulfate 2.5 mg /3 mL (0.083 %) solution for nebulization 2.5 mg inhalation Q6H lamotrigine 25 mg tablet 25 mg PO DAILY sertraline 50 mg tablet 50 mg PO Q24H Vraylar 1.5 mg capsule 1.5 mg PO Q24H budesonide-formoterol [Symbicort] 160-4.5 mcg/actuation HFA aerosol inhaler 1 puff INHALATION Q12H Instructions: Influenza (ED), Community Acquired Pneumonia (ED), Shortness of Breath (ED) Referrals: [facility] [Primary Care Provider] - 1 week Discharge Date/Time: 11/09/23 18:32 Stand Alone Forms: Portal Instructions Documented by User: Albert Chowdhury MD 11/09/23 20:03 HPI - SOB/Dyspnea General Chief Complaint: Shortness of Breath/Dyspnea Time Seen by Provider: 11/09/23 15:28 Related Data Home Medications Medication Instructions Recorded Confirmed albuterol sulfate 2.5 mg/3 mL 2.5 mg inhalation Q6H 11/07/23 11/07/23 (0.083 %) solution for nebulization budesonide-formoterol HFA 160 1 puff inhalation Q12H 11/07/23 11/07/23 mcg-4.5 mcg/actuation aerosol inhaler (Symbicort) cariprazine 1.5 mg capsule 1.5 mg PO Q24H 11/07/23 11/07/23 (Vraylar) lamotrigine 25 mg tablet 25 mg PO DAILY 11/07/23 11/07/23 sertraline 50 mg tablet 50 mg PO Q24H 11/07/23 11/07/23 Previous Rx's Medication Instructions Recorded sacicbtvulbrlew-qchgfoctlvgfwuk-DQ 10 ml PO Q6H PRN cold symptoms 11/09/23 2 mg-30 mg-10 mg/5 mL oral syrup #200 mL (Bromfed DM) doxycycline hyclate 100 mg tablet 100 mg PO BID 10 days #20 tabs 11/09/23 ondansetron 4 mg disintegrating 4 mg PO Q6H PRN nausea and 11/09/23 tablet vomiting #12 tabs Allergies Allergy/AdvReac Type Severity Reaction Status Date / Time fentanyl Allergy hallucinati Verified 11/07/23 06:00 on [facility] Medical History (Updated 11/09/23 @ 18:22 by PERCY Alfaro) History of blood transfusion ?Z92.89 - Personal history of other medical treatment (ICD-10) Anemia ?D64.9 - Anemia, unspecified (ICD-10) Deep vein thrombosis ?I82.409 - Acute embolism and thrombosis of unspecified deep veins of unspecified lower extremity (ICD-10) Insomnia ?G47.00 - Insomnia, unspecified (ICD-10) Panic attacks ?F41.0 - Panic disorder [episodic paroxysmal anxiety] (ICD-10) Anxiety ?F41.9 - Anxiety disorder, unspecified (ICD-10) COVID-19 ?U07.1 - COVID-19 (ICD-10) Sleep apnea ?G47.30 - Sleep apnea, unspecified (ICD-10) Pneumonia ?J18.9 - Pneumonia, unspecified organism (ICD-10) Bronchitis ?J40 - Bronchitis, not specified as acute or chronic (ICD-10) Asthma ?J45.909 - Unspecified asthma, uncomplicated (ICD-10) Seizures ?R56.9 - Unspecified convulsions (ICD-10) Migraine ?G43.909 - Migraine, unspecified, not intractable, without status migrainosus (ICD-10) Kidney stones ?N20.0 - Calculus of kidney (ICD-10) Heartburn ?R12 - Heartburn (ICD-10) GERD (gastroesophageal reflux disease) ?K21.9 - Gastro-esophageal reflux disease without esophagitis (ICD-10) Bradycardia associated with anesthesia Abnormal uterine bleeding ?N93.9 - Abnormal uterine and vaginal bleeding, unspecified (ICD-10) Pelvic pain ?R10.2 - Pelvic and perineal pain (ICD-10) Menorrhagia ?N92.0 - Excessive and frequent menstruation with regular cycle (ICD-10) Dysmenorrhea ?N94.6 - Dysmenorrhea, unspecified (ICD-10) Delayed recovery from anesthesia Surgical History (Updated 02/09/23 @ 12:49 by Sherita Jean NP) H/O lithotripsy ?Z98.890 - Other specified postprocedural states (ICD-10) History of endometrial ablation ?Z98.890 - Other specified postprocedural states (ICD-10) History of cholecystectomy ?Z90.49 - Acquired absence of other specified parts of digestive tract (ICD- 10) History of bilateral salpingectomy ?Z90.79 - Acquired absence of other genital organ(s) (ICD-10) History of section ?Z98.891 - History of uterine scar from previous surgery (ICD-10) History of appendectomy ?Z90.49 - Acquired absence of other specified parts of digestive tract (ICD- 10) History of dilation and curettage ?Z98.890 - Other specified postprocedural states (ICD-10) Family History (Updated 02/09/23 @ 12:44 by Sherita Jean NP) Other Family history of COPD (chronic obstructive pulmonary disease) Family history of DVT Family history of breast cancer Family history of heart disease Family history of hypertension Family history of myocardial infarction Family history of ovarian cancer Family history of stroke Family history of uterine cancer Social History Within the past year, how often did you have a drink containing alcohol: monthly or less Smoking status: Current every day smoker Non-prescribed substance use: cannabis (any form) Previous occupational history: [employer] Highest level of school completed/degree received: high school graduate Gender Identity: female Exam Constitutional Vital Signs, click to edit/add: Last Vital Signs Temp 98.4 F 11/09/23 17:44 Pulse 94 H 11/09/23 17:30 Resp 20 11/09/23 17:30 BP 150/81 H 11/09/23 17:30 Pulse Ox 95 11/09/23 17:30 O2 Del Method Room Air 11/09/23 15:46 Course Vital Signs Vital signs: Vital Signs Pulse Rate 129 H 11/09/23 15:13 Respiratory Rate 24 11/09/23 15:13 Blood Pressure 141/88 11/09/23 15:13 Pulse Oximetry 95 11/09/23 15:13 Oxygen Delivery Method Room Air 11/09/23 15:13 Temperature 98.4 F 11/09/23 17:44 Pulse Rate 94 H 11/09/23 17:30 Respiratory Rate 20 11/09/23 17:30 Blood Pressure 150/81 H 11/09/23 17:30 Pulse Oximetry 95 11/09/23 17:30 Oxygen Delivery Method Room Air 11/09/23 15:46 MDM - SOB/Dyspnea MDM Narrative Medical decision making narrative: Patient was sent for CT angio of the chest with elevated D-dimer. The remainder of her labs, EKG are unremarkable. She was treated with IV fluids, Zofran, Toradol, Solu-Medrol, breathing treatments. She maintains pulse oximetry in the ER, no hypoxia or oxygen demands. CT angio of the chest shows bibasilar patchy opacities consistent with pneumonia, likely from her influenza infection. Given her history of COPD, she is placed on doxycycline, Bromfed-DM. She is on steroids for home. Zofran given as needed. Follow-up with pulmonology and PCP and return to the ER if symptoms change or worsen I, Dr Chowdhury, have reviewed the above progress note and course of action in the ER; agree with the above. I have personally seen and evaluated this patient, gone over history and physical, and discussed disposition and treatment plan with the patient. Patient reevaluated by attending physician prior to discharge Lab Data Attestation: I reviewed the patient's lab results. Labs: Lab Results 11/09/23 Range/Units 15:34 WBC 5.5 (4.0-11.0) 10^3/uL RBC 4.56 (4.20-5.40) 10^6/uL Hgb 13.4 (12.0-16.0) g/dL Hct 41.9 (36.0-48.0) % MCV 91.9 (81.0-99.0) fL MCH 29.4 (26.7-34.0) pg MCHC 32.0 (29.9-35.2) g/dL RDW 12.7 (11.0-15.0) % Plt Count 248 (150-450) 10^3/uL MPV 9.9 (9.5-13.5) fL Neut % (Auto) 74.1 (43.0-75.0) % Lymph % (Auto) 18.8 L (20.5-60.0) % [place] % (Auto) 6.5 (1.7-12.0) % Eos % (Auto) 0.0 L (0.9-7.0) % Baso % (Auto) 0.4 (0.2-2.0) % Neut # (Auto) 4.1 (1.4-6.5) 10^3/uL Lymph # (Auto) 1.0 L (1.2-3.8) 10^3/uL [place] # (Auto) 0.4 (0.3-0.8) 10^3/uL Eos # (Auto) 0.0 (0.0-0.7) 10^3/uL Baso # (Auto) 0.0 (0.0-0.1) 10^3/uL Abs Immat Gran (auto) 0.01 (0.00-0.03) 10^3/uL Imm/Tot Granulo (auto) 0.2 (0.0-0.5) % PT 9.7 (9.0-11.6) sec INR <0.93 APTT 33.2 (22.3-36.2) sec D-Dimer 0.91 H* (<=0.59) mg/L FEU VBG pH 7.428 (7.330-7.430) VBG pCO2 36.6 L (40.0-52.0) mmHg Sodium 136 (136-145) mmol/L Potassium 3.4 L (3.5-5.1) mmol/L Chloride 104 (98-107) mmol/L Carbon Dioxide 24.3 (21.0-32.0) mmol/L Anion Gap 11.1 BUN 4.0 L (7.0-18.0) mg/dL Creatinine 0.88 (0.55-1.02) mg/dL Est GFR ( Amer) >60 (>=60) Est GFR (Non-Af Amer) >60 (>=60) BUN/Creatinine Ratio 4.5 Glucose 97 (74-106) mg/dL Calcium 8.4 L (8.5-10.1) mg/dL Total Bilirubin 0.2 (0.2-1.0) mg/dL AST 27 (15-37) U/L ALT 31 (14-59) U/L Alkaline Phosphatase 102 (46-116) U/L Troponin I High Sens <4.0 L (4.0-51.3) pg/mL NT-Pro-B Natriuret Pep 62.0 (<=450.0) pg/mL Total Protein 7.1 (6.4-8.2) g/dL Albumin 3.1 L (3.4-5.0) g/dL Globulin 4.0 g/dL Albumin/Globulin Ratio 0.[address] scan - chest: Radiologist's impression: ITS Impressions Chest CTA 11/09/23 17:03 IMPRESSION: 1. No pulmonary embolism. 2. Patchy bilateral airspace opacities likely represent pneumonia. 3. Left apical pulmonary nodule is not significant changed although remains indeterminate for malignancy. Recommend follow-up chest CT in one year. 4. Mediastinal and left hilar lymphadenopathy is not substantially changed. Electronically authenticated by: PAWAN ROCHE Date: 11/09/2023 17:55 ECG Data Attestation: I personally reviewed and interpreted this ECG as follows: (EKG interpretation. Sinus tachycardia at 102, normal axis deviation. No acute ST elevation, no acute ectopy. QTc of 367.) Discharge Plan Discharge Chief Complaint: Shortness of Breath/Dyspnea Clinical Impression: Influenza B, Shortness of breath, Pneumonia Patient Disposition: Home, Self-Care Time of Disposition Decision: 18:22 Condition: Good Prescriptions / Home Meds: New mvcrhfkpxpeeccm-sgxkauefc-ZF [Bromfed DM] 2-30-10 mg/5 mL syrup 10 ml PO Q6H PRN (Reason: cold symptoms) Qty: 200 0RF ondansetron 4 mg tablet,disintegrating 4 mg PO Q6H PRN (Reason: nausea and vomiting) Qty: 12 0RF doxycycline hyclate 100 mg tablet 100 mg PO BID 10 Days Qty: 20 0RF No Action albuterol sulfate 2.5 mg /3 mL (0.083 %) solution for nebulization 2.5 mg inhalation Q6H lamotrigine 25 mg tablet 25 mg PO DAILY sertraline 50 mg tablet 50 mg PO Q24H Vraylar 1.5 mg capsule 1.5 mg PO Q24H budesonide-formoterol [Symbicort] 160-4.5 mcg/actuation HFA aerosol inhaler 1 puff INHALATION Q12H Instructions: Influenza (ED), Community Acquired Pneumonia (ED), Shortness of Breath (ED) Referrals: [facility] [Primary Care Provider] - 1 week Discharge Date/Time: 11/09/23 18:32 Stand Alone Forms: Portal Instructions
[2023-11-09] MEDS: IPRATROPIUM/ALBUTEROL SULFATE 3 ML AMPUL.NEB IH (15:51)
[2023-11-09] MEDS: 0.9 % SODIUM CHLORIDE 1,000 ML 1000 ML IV (15:55)
[2023-11-09] MEDS: ONDANSETRON PF 4 MG/2 ML VIAL IV (15:56)
[2023-11-09] MEDS: METHYLPREDNISOLONE SOD SUCC PF 125 MG/2 ML VIAL IVP (15:56)
[2023-11-09] MEDS: KETOROLAC TROMETHAMINE 30 MG/ML VIAL IVP (15:56)
[2023-11-09 16:14] LABS: PCO2 VBG 36.6 mmHg (40.0-52.0); pH VBG 7.428 (7.330-7.430)
[2023-11-09 16:20] LABS: Basophils Percent Auto 0.4 % (0.2-2.0); Hematocrit 41.9 % (36.0-48.0); Hemoglobin 13.4 g/dL (12.0-16.0); Immature Granulocytes Abs Auto 0.01 10^3/uL (0.00-0.03); Immature Granulocytes Pct Auto 0.2 % (0.0-0.5); Lymphocytes Percent Auto 18.8 % (20.5-60.0); Mean Corpuscular Hemoglobin 29.4 pg (26.7-34.0); Mean Corpuscular Volume 91.9 fL (81.0-99.0); Mean Platelet Volume 9.9 fL (9.5-13.5); Monocytes Absolute Auto 0.4 10^3/uL (0.3-0.8); Monocytes Percent Auto 6.5 % (1.7-12.0); Neutrophils Absolute Auto 4.1 10^3/uL (1.4-6.5); Neutrophils Percent Auto 74.1 % (43.0-75.0); Platelet Count 248 10^3/uL (150-450); Red Blood Count 4.56 10^6/uL (4.20-5.40); Red Cell Distribution Width 12.7 % (11.0-15.0); White Blood Count 5.5 10^3/uL (4.0-11.0)
[2023-11-09 16:41] LABS: Alanine Aminotransferase 31 U/L (14-59); Albumin Globulin Ratio 0.8; Albumin Level 3.1 g/dL (3.4-5.0); Alkaline Phosphatase 102 U/L (46-116); Anion Gap 11.1; Aspartate Amino Transferase 27 U/L (15-37); BUN Creatinine Ratio 4.5; Bilirubin Total 0.2 mg/dL (0.2-1.0); Calcium 8.4 mg/dL (8.5-10.1); Carbon Dioxide 24.3 mmol/L (21.0-32.0); Chloride 104 mmol/L (98-107); Estimated GFR (African America >60 (>=60); Estimated GFR (Non-African Ame >60 (>=60); Glucose 97 mg/dL (74-106); Potassium 3.4 mmol/L (3.5-5.1); Sodium 136 mmol/L (136-145); Total Protein 7.1 g/dL (6.4-8.2); Troponin I High Sensitivity <4.0 pg/mL (4.0-51.3)
[2023-11-09 16:56] LABS: Partial Thromboplastin Time 33.2 sec (22.3-36.2); Prothrombin Time 9.7 sec (9.0-11.6)
[2023-11-09 17:00] LABS: INR <0.93
[2023-11-09 17:01] LABS: D Dimer 0.91 mg/L FEU (<=0.59)
--- NOTE | 2023-11-09 17:03 | CT_ITS ---
The [address] [address] Patient Name: COY SAMUEL MRN: [id number] date: 1985 Sex: F Assigned Patient Location: ER Current Patient Location: Accession/Order Number: [id number] Exam Date: 11/09/2023 17:15 Report Date: 11/09/2023 17:55 At the request of: KEVIN CAMARENA Procedure: CT angio chest EXAM: CT pulmonary angiogram of the chest using 98 mL of IV iodinated contrast. 3-D imaging was performed. Dose reduction technique used: Automated exposure control and/or adjustment of the mA and/or kV according to patient size and/or use of iterative reconstruction technique. REASON FOR EXAM: Dyspnea COMPARISON: CT scan dated 09/06/2022 FINDINGS: No pulmonary emboli. No aortic dissection. No pneumothorax. No pleural effusion. No acute fractures. Small amount of patchy airspace opacities in both lungs with a relatively symmetric distribution. Trace bilateral pleural effusions. Left hilar lymphadenopathy. Mediastinal lymphadenopathy, most evident in the AP window, for example a lymph node here measures 2.8 x 1.6 cm, these are not significantly changed. 1.5 x 1.3 cm left apical solid pulmonary nodule is not significantly changed.. Cholecystectomy. Remainder unremarkable. CT/CT angio chest IMPRESSION: 1. No pulmonary embolism. 2. Patchy bilateral airspace opacities likely represent pneumonia. 3. Left apical pulmonary nodule is not significant changed although remains indeterminate for malignancy. Recommend follow-up chest CT in one year. 4. Mediastinal and left hilar lymphadenopathy is not substantially changed. Electronically authenticated by: PAWAN ROCHE Date: 11/09/2023 17:55
== END 2023-11-09 18:32 | disposition home or self-care (01) ==
PROVIDERS: Physician Assistant; Emergency Provider Emergency Medicine
DX: J18.9 Pneumonia, unspecified organism (principal); J44.0 Chronic obstructive pulmonary disease with (acute) lower respiratory infection; R06.02 Shortness of breath; R07.9 Chest pain, unspecified; Z86.718 Personal history of other venous thrombosis and embolism; F41.0 Panic disorder [episodic paroxysmal anxiety]; F41.9 Anxiety disorder, unspecified; J10.1 Influenza due to other identified influenza virus with other respiratory manifestations; Z86.19 Personal history of other infectious and parasitic diseases; G47.30 Sleep apnea, unspecified; Z87.01 Personal history of pneumonia (recurrent); Z87.442 Personal history of urinary calculi; K21.9 Gastro-esophageal reflux disease without esophagitis; Z90.49 Acquired absence of other specified parts of digestive tract; Z90.79 Acquired absence of other genital organ(s); F17.200 Nicotine dependence, unspecified, uncomplicated; R79.89 Other specified abnormal findings of blood chemistry; R91.1 Solitary pulmonary nodule
CPT/HCPCS: 36415; 71275; 80053; 82800; 83880; 84484; 85025; 85378; 85610; 85730; 87040; 93005; 94640; 96361; 96374; 96375; 99285; J2930; Q9967

== ENCOUNTER 2023-12-14 14:33 | Outpatient (OUT) | payer OTHER, SELFPAY ==
--- NOTE | 2023-12-14 14:55 | XR_ITS ---
The [address] [address] Patient Name: COY SAMUEL MRN: [facility]:[id number] date: 1985 Sex: F Assigned Patient Location: LAB Current Patient Location: LAB Accession/Order Number: [id number] Exam Date: 12/14/2023 14:55 Report Date: 12/16/2023 06:25 At the request of: SAMANTHA CHATTERJEE Procedure: XR knee LT 4V PROCEDURE: XR knee LT 4V HISTORY: Chronic Knee Pain M25.569 COMPARISON: XR knee left 02/27/2022 FINDINGS: BONES:No fracture, dislocation, or convincing bone lesion. Mild cortical thickening involving the lateral aspect of distal femoral diaphysis; no periosteal reaction or appreciable bone destruction. SOFT TISSUES:No visible soft tissue swelling. EFFUSION:None visible. OTHER: Negative. XR/XR knee LT 4V IMPRESSION: 1. No acute bone abnormality or significant degenerative joint disease to account for patient's symptoms. 2. Cortical thickening of distal femoral diaphysis along lateral margin which may be sequela of remote injury. Consider MRI for further evaluation to exclude a soft tissue component/neoplasm. Electronically authenticated by: LOUIE LIRIANO Date: 12/16/2023 06:25
[2023-12-14 15:04] LABS: Hematocrit 38.3 % (36.0-48.0); Hemoglobin 12.4 g/dL (12.0-16.0); Mean Corpuscular HGB Conc 32.4 g/dL (29.9-35.2); Mean Corpuscular Hemoglobin 29.8 pg (26.7-34.0); Mean Corpuscular Volume 92.1 fL (81.0-99.0); Mean Platelet Volume 9.3 fL (9.5-13.5); Platelet Count 347 10^3/uL (150-450); Red Blood Count 4.16 10^6/uL (4.20-5.40); Red Cell Distribution Width 12.7 % (11.0-15.0); White Blood Count 11.3 10^3/uL (4.0-11.0)
[2023-12-14 15:31] LABS: Alanine Aminotransferase 29 U/L (14-59); Albumin Globulin Ratio 0.8; Albumin Level 2.9 g/dL (3.4-5.0); Alkaline Phosphatase 92 U/L (46-116); Aspartate Amino Transferase 16 U/L (15-37); BUN Creatinine Ratio 13.3; Bilirubin Total 0.2 mg/dL (0.2-1.0); Calcium 8.8 mg/dL (8.5-10.1); Carbon Dioxide 27.9 mmol/L (21.0-32.0); Chloride 103 mmol/L (98-107); Estimated GFR (African America >60 (>=60); Estimated GFR (Non-African Ame >60 (>=60); Globulin 3.7 g/dL; Glucose 92 mg/dL (74-106); Magnesium 1.7 mg/dL (1.8-2.4); Potassium 3.9 mmol/L (3.5-5.1); Sodium 139 mmol/L (136-145); Total Protein 6.6 g/dL (6.4-8.2)
== END 2023-12-14 14:34 | disposition home or self-care (01) ==
LOC: LAB 14:35
PROVIDERS: PCP Nurse Practitioner; Visit Provider Nurse Practitioner
DX: R20.2 Paresthesia of skin (principal); R53.83 Other fatigue; M25.569 Pain in unspecified knee
CPT/HCPCS: 36415; 73564; 80053; 82306; 83735; 84443; 85027

== ENCOUNTER 2024-01-10 10:23 | Outpatient (OUT) | payer OTHER, SELFPAY ==
--- NOTE | 2024-01-10 10:27 | MR_ITS ---
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 Technique: Multiplanar T1-weighted, axial FLAIR, and susceptibility images were obtained without intravenous contrast. Following intravenous gadolinium-based contrast administration, axial T2-weighted, diffusion, and T1-weighted images (in multiple planes) were obtained. Contrast: 20 mL Dotarem Findings: There is no mass effect, midline shift, or evidence of intracranial hemorrhage. The ventricles are proportionate to the cerebral sulci. Normal major vascular intracranial flow-voids. Few, scattered small high T2/FLAIR signal foci in the white matter. There are approximately 5-6 lesions. Postcontrast images demonstrate no abnormal intracranial enhancement. No abnormality of the skull marrow signal. The visualized portions of paranasal sinuses, and mastoid air cells are relatively clear. The orbits are grossly unremarkable. MR/MR head/brain wo/w con Impression: Few, scattered high signal intensity foci on T2/FLAIR in the white matter, as above, which may relate to the reported history of migraine headache. The differential less likely would include demyelinating or small vessel ischemic disease. Electronically authenticated by: ROLANDO HAN Date: 01/10/2024 13:12
== END 2024-01-10 10:24 | disposition home or self-care (01) ==
LOC: MRI 10:23
PROVIDERS: PCP Nurse Practitioner; Visit Provider Psychiatry & Neurology Neurology
DX: G43.109 Migraine with aura, not intractable, without status migrainosus (principal); R20.2 Paresthesia of skin; H53.9 Unspecified visual disturbance; R41.89 Other symptoms and signs involving cognitive functions and awareness
CPT/HCPCS: 70553; A9575

== ENCOUNTER 2024-06-30 07:22 | Emergency (ER) | payer OTHER, SELFPAY ==
[2024-06-30 07:27] VITALS: BP 125/72; PULSE 76; TEMP 36.6; O2SAT 98; BMI 36.0
--- OUTSIDE RECORDS SUMMARY | 2024-06-30 07:27 | XMS_ITS | CCD ---
Author Organization [facility] Care Team Providers Care Quality Assurance Group Leader Name Role Phone PRINCESS HOYT Attending Unavailable Unavailable Primary Care Provider UnavailMukund Silveira Unavailable Radha Arciniega Unavailable Christopher Mendez Unavailable MD Mukund Rodriguez Attending Provider [phone] NON STAFF Primary Care Provider UnavailMD Christopher Jacobson Attending Provider Jimmie Crawford DDS Attending Unavailable [facility] Unava ilable NEY, DR MARYURI Parker Admitting Unavailabl e REINSETH, DR MARYURI Parker Consulting Unavailabl e NEY, DR MARYURI Parker Attending Unavailabl e [facility] Unava ilable MICHAELA ., KRISHNA Attending Unavailable MICHAELA ., KRISHNA Admitting Unavailable NICOL .PERCY Consulting Unavailabl e MICHAELA ., KRISHNA Consulting Unavailable [facility] Unava ilable LOW ESCALANTE Attending Unavailable LOW ESCALANTE Consulting Unavailable BORIS, LOW Admitting Unavailable [facility] Unava ilable LOW ESCALANTE Attending Unavailable LOW ESCALANTE Consulting Unavailable BORIS, LOW Admitting Unavailable [facility] Unava ilable AYLIN ., DR EVERETT Admitting Unavailable AYLIN ., DR EVERETT Attending Unavailable AYLIN ., DR EVERETT Consulting Unavailable [facility] Consulting Unava ilable [facility] Unava ilable AYLIN ., DR EVERETT Admitting Unavailable AYLIN ., DR EVERETT Attending Unavailable [facility] Unava ilable HAY ., DR FRIED Consulting Unavailable BORIS, LOW Admitting Unavailable LOW ESCALANTE Attending Unavailable [facility] Unava ilable WERNER ., RENA Attending Unavailable JUDY CONKLIN Consulting Unavailable DIAB ., RENA Admitting Unavailable DIAB ., RENA Consulting Unavailable [facility] Unava ilable GUILLE, DR RANJAN Joyce Admitting Unavailable GUILLE, DR RANJAN Joyce Attending Unavailable GUILLE, DR RANJAN Joyce Consulting Unavailable MARIAM SANCHEZ Consulting Unavailable [facility] Unava ilable AYLIN ., DR EVERETT Attending Unavailable AYLIN ., DR EVERETT Admitting Unavailable [facility] Unava ilable AYLIN ., DR EVERETT Admitting Unavailable AYLIN ., DR EVERETT Attending Unavailable AYLIN ., DR EVERETT Consulting Unavailable AGUBOSIM, AMOS Consulting Unavailable DORKOSKIE, TRACEY Consulting Unavailable [facility] Consulting Unava ilable GLENN JIN Attending Unavailable [facility] Unava ilable GLENN JIN Admitting Unavailable JOVANY, GIULIANO Consulting Unavailable GLENN JIN Consulting Unavailable MUKUND MASSEY Consulting Unavailable POLICARO, ESTHER Consulting Unavailable [facility] Unava ilable NADNORMA, DR DARIEN Silvestre Consulting Unavailable NADERER, DR DARIEN Silvestre Attending Unavailable NADERER, DR DARIEN Silvestre Admitting Unavailable HAY ., DR FRIED Consulting Unavailable KARLEEPRINCESS Consulting Unavailable .MEGAN DUGAN Consulting Unavailable OLEMUKUND DELACRUZ Attending Unavailable OLEXA, MUKUND Admitting Unavailable [facility] Unava ilable [facility] Unava ilable NEY, DR MARYURI Parker Attending Unavailabl e NEY, DR MARYURI Parker Admitting Unavailabl e NEY, DR MARYURI Parker Consulting Unavailabl ashley LIRIANO, DR LOUIE Joyce Consulting Unavailable [facility] Unava ilable NEY, DR MARYURI Parker Attending Unavailabl e NEY, DR MARYURI Parker Admitting Unavailabl e NEY, DR MARYURI Parker Consulting Unavailjuan m LYLE, DR SREE Peña Consulting Unavailable [facility] Unava ilable LOW ESCALANTE Attending Unavailable NICOL .PERCY Consulting UnavailLOW De Santiago Admitting Unavailable SREE MCCLENDON Consulting Unavailable PATRICIA Piper Attending Provider OMKAR [facility] Primary Care Provider Saloni Piper Admitting Unavailable Saloni Piper Attending [facility] Judy SCHULTZ Primary Care Physician LOUIE SMART Attending Unavailable SALONI PIPER Attending Unavailable SALONI PIPER Attending Unavailable SALONI PIPER Attending Unavailable Allergies Allergy Classification Reported Allergen(s) Allergy Type Date of Onset Reaction(s) Facility Opioid Agonists (1 source) [facility] [address] [place] [address] Repository (4 sources) [facility] Other (1 source) [facility] Repository Medications Current Medications Medication Drug Class(es) Dates Sig (Normalized) Sig (Original) Acetaminophen / oxyCODONE (2 sources) Opioid Agonist Percocet Active [id number] 200 actuat albuterol 0.09 mg/actuat metered dose inhaler (2 sources) beta2-Adrenergic Agonist Start: 02-22-2024 take 1 puff(s) by inhalation every four to six hours Albuterol Sulfate Active 2 PUFF INHALATION EVERY 4-6 HOURS February 22, 2024 12:00am azithromycin 250 mg oral tablet (1 source) Macrolide Antimicrobial Start: 03-01-2020 End: 03-11-2020 azithromycin (ZITHROMAX) 250 MG tablet Indications: Bronchitis Take 2 tablets (500 mg) on Day 1, followed by 1 tablet (250 mg) once daily on Days 2 through 5. 1 packet 0 03/01/2020 03/11/2020 Active cariprazine 1.5 mg oral capsule (2 sources) Atypical Antipsychotic Start: 02-22-2024 take 1 capsule by mouth once daily Cariprazine (Vraylar) 1.5 mg capsule Active 1.5 MG PO Daily February 22, 2024 12:00am cyclobenzaprine hydrochloride 5 mg oral tablet (4 sources) Muscle Relaxant take 1 tablet by mouth every twenty-four hours Cyclobenzaprine HCl 5 MG 1 tablet at bedtime as needed Orally Once a day Active hydrOXYzine pamoate 50 mg oral capsule (2 sources) Antihistamine Start: 02-22-2024 take 50 mg by mouth twice daily Hydroxyzine Pamoate Active 50 MG PO Twice daily February 22, 2024 12:00am lamoTRIgine 25 mg oral tablet (2 sources) Mood Stabilizer, Anti-epileptic Agent Start: 02-22-2024 take 50 mg by mouth once daily Lamotrigine Active 50 MG PO Daily February 22, 2024 12:00am 24 hr metFORMIN hydrochloride 500 mg extended release oral tablet (2 sources) Biguanide Start: 02-22-2024 take 500 mg by mouth once daily Metformin Active 500 MG PO Daily 30 February 22, 2024 12:00am Take with largest meal naproxen 250 mg oral tablet (4 sources) Nonsteroidal Anti-inflammatory Drug take 1 tablet by mouth every twelve hours Naproxen 250 MG 1 tablet with food or milk Orally Twice a day Active OXcarbazepine 300 mg oral tablet (2 sources) Anti-epileptic Agent Start: 02-22-2024 take 300 mg by mouth once daily Oxcarbazepine Active 300 MG PO Daily February 22, 2024 12:00am predniSONE 10 mg oral tablet (1 source) Start: 03-01-2020 End: 03-11-2020 take 4 tablets by mouth once daily predniSONE (DELTASONE) 10 MG tablet Take 4 tablets by mouth once daily for 5 days 20 tablet 0 03/01/2020 03/11/2020 Active SUMAtriptan 50 mg oral tablet (2 sources) Serotonin-1b and Serotonin-1d Receptor Agonist Start: 02-22-2024 take 1 mg by mouth once Sumatriptan Succinate Active MG PO Once February 22, 2024 12:00am topiramate 100 mg oral tablet (1 source) topiramate (TOPA MAX) 100 MG tablet Take 150 mg by mouth 2 times daily 0 Active traMADol hydrochloride 50 mg oral tablet (2 sources) Opioid Agonist take 1 tablet by mouth every twenty-four hours traMADol HCl 50 MG 1 tablet as needed Orally Once a day Active traZODone hydrochloride 100 mg oral tablet (2 sources) Serotonin Reuptake Inhibitor Start: 02-22-2024 take 100 mg by mouth once daily at bedtime Trazodone Active 100 MG PO Daily at bedtime February 22, 2024 12:00am varenicline 0.5 mg oral tablet (2 sources) Partial Cholinergic Nicotinic Agonist Start: 02-22-2024 take 0.5 mg by mouth twice daily Varenicline Active 0.5 MG PO Twice daily February 22, 2024 12:00am vortioxetine 10 mg oral tablet (2 sources) Start: 02-22-2024 take 1 tablet by mouth once daily Vortioxetine (Trintellix) 10 mg tablet Active 10 MG PO Daily February 22, 2024 12:00am zolpidem tartrate 10 mg oral tablet (1 [...] suspension (3 sources) Corticosteroid Start: 05-04-2022 Kenalog-40 30 Apr, 2022 40 mg Problems Active Problems Problem Classification Problem Date Documented Da te Episodic/Chronic Administrative/social admission (4 sources) Patient encounter status; Translations: [Dietary counseling and surveillance] 02-22-2024 Episodic Anxiety disorders (2 sources) Anxiety; Translations: [Anxiety disorder, unspecified] 02-22-2024 Chronic Asthma (3 sources) Unspecified asthma, uncomplicated; Translations: [Asthma] Onset: 09-08-2022 02-22-2024 Chronic Chronic obstructive pulmonary disease and bronchiectasis [...] FREQ MENSTRUATION W/REG CYCL] Onset: 04-16-2022 Chronic Mood disorders (4 sources) Bipolar disorder; Translations: [Bipolar disorder, unspecified] 02-22-2024 Chronic Nausea and vomiting (3 sources) Nausea with vomiting, unspecified; Translations: [NAUSEA WITH VOMITING UNSPECIFIED] Onset: 10-22-2022 Episodic Other aftercare (1 source) Other fci (current) drug therapy; 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] Onset: 12-21-2022 Episodic Other disorders of stomach and duodenum (4 sources) Indigestion; Translations: [Functional dyspepsia] Episodic Other endocrine disorders (2 sources) Polycystic ovary syndrome; Translations: [Polycystic ovarian syndrome] 02-22-2024 Chronic Other endocrine disorders (2 sources) Polycystic ovarian syndrome; Translations: [Polycystic ovaries] 02-22-2024 Chronic Other female genital disorders (1 source) Other specified abnormal uterine and vaginal bleeding; Translations: [OTH SPEC ABNORMAL UTERINE VAG BLEED] Onset: 12-21-2022 Chronic Other female genital disorders (1 source) Unspecified dyspareunia; Translations: [UNSPECIFIED DYSPAREUNIA] Onset: 04-19-2022 Chronic Other nervous system disorders (1 source) Other chronic pain; Translations: [OTHER CHRONIC PAIN] Onset: 03-25-2022 Chronic Other nervous system disorders (1 source) Paresthesia of skin; Translations: [Paresthesia of skin] Onset: 03-01-2024 Episodic Other nutritional; endocrine; and metabolic disorders (2 sources) Obese class II; Translations: [Obesity, unspecified] 02-22-2024 Chronic Other nutritional; endocrine; and metabolic disorders (2 sources) Obesity, unspecified; Translations: [Obesity, unspecified] 02-22-2024 Chronic Other upper respiratory infections (6 sources) Acute upper respiratory infection, unspecified; Translations: [Acute laryngitis] Onset: 11-05-2022 Episodic Personality disorders (2 sources) Personality disorder; Translations: [Personality disorder, unspecified] 02-22-2024 Chronic Screening and history of mental health and substance abuse codes (1 source) Personal history of nicotine dependence; Translations: [PERSONAL HISTORY OF NICOTINE DEPEND] Onset: 01-13-2023 Episodic Substance-related disorders (1 source) Nicotine dependence, cigarettes, uncomplicated; Translations: [NICOTINE DEPEND CIGARETTES UNCOMP] Onset: 12-21-2022 Chronic Unclassified (3 sources) COUGH, UNSPECIFIED; Translations: [COUGH, [...] Test Name Value Interpretation Reference Range Facility MR cervical spine wo/w conon 03-01-2024 MR cervical spine wo/w con [facility] [place] [address] [place] [address] MRI Report Signed Patient: Lilly Samuel MR#: [id number] : 1985 Acct:[id number] Age/Sex: 38 / F ADM Date: 03/01/24 Loc: MR Room: Type: [facility] Attending Dr: Saloni Piper PA-C Copies to: Saloni Piper PA-C Ordering Provider: Saloni Piper PA-C Date of Service: 03/01/24 MR/MR cervical spine wo/w con: R20.2, R29.2 MR cervical spine wo/w con 03/01/2024 10:48 AM SIGNS AND SYMPTOMS: Left-sided upper and lower extremity pain/numbness and tingling, left shoulder pain PROTOCOL: Multiplanar multisequence MR images of the cervical spine were obtained with and without IV contrast CONTRAST: 19 mL of intravenous ProHance COMPARISON: None. FINDINGS: The bones of the cervical spine are in anatomic alignment. There is preservation of vertebral body heights. There is disc desiccation and mild disc height loss at C3-C4. There is stenosis greatest in mild disc height loss at C5-C6 and C6-C7.. The marrow signal is within normal limits. The cord is normal in signal. No epidural or paraspinous fluid collection is appreciated. The visualized paraspinous soft tissues are within normal limits. The prevertebral soft tissues are within normal limits. No abnormal postcontrast enhancement. At C2-C3: There is a normal disc, central canal, and neural foramen. At C3-C4: There is a left subarticular and foraminal disc protrusion contributing to moderate to severe left neural foraminal stenosis. There is minimal spinal canal narrowing. At C4-C5: There is a normal disc, central canal, and neural foramen. At C5-C6: There is a focal central disc protrusion contributing to mild spinal canal narrowing. No significant neural foraminal narrowing. At C6-C7: There is a broad-based disc bulge without joint spurring and facet hypertrophy contributing to mild bilateral neural foraminal narrowing and mild spinal canal narrowing. At C7-T1: There is a normal disc, central canal, and neural foramen. MR/MR cervical spine wo/w con IMPRESSION: At C3-C4: There is a left subarticular and foraminal disc protrusion contributing to moderate to severe left neural foraminal stenosis. There is minimal spinal canal narrowing. At C5-C6: There is a focal central disc protrusion contributing to mild spinal canal narrowing. No significant neural foraminal narrowing. At C6-C7: There is a broad-based disc bulge without joint spurring and facet hypertrophy contributing to mild bilateral neural foraminal narrowing and mild spinal canal narrowing. No abnormal postcontrast enhancement. Impression dictated by: Ranjan Orourke M.D.03/01/2024 2:54 PM Dictation Location: [place] [address] Transcribed By: [facility] 03/01/24 1459 Dictated By: Ranjan Orourke II, MD 03/01/24 1448 Signed By: 03/01/24 1454 Normal [facility] MR thoracic spine wo/w conon 03-01-2024 MR thoracic spine wo/w con [facility] [place] [address] MRI Report Signed Patient: Lilly Samuel MR#: [id number] : 1985 Acct:[id number] Age/Sex: 38 / F ADM Date: 03/01/24 Loc: Room: Type: [facility] Attending Dr: Saloni Piper PA-C Copies to: Slaoni Piper PA-C Ordering Provider: Saloni Piper PA-C Date of Service: 03/01/24 MR/MR thoracic spine wo/w con: R20.2, R29.2 MR thoracic spine wo/w con 03/01/2024 9:40 AM SIGNS AND SYMPTOMS: Left-sided upper and lower extremity pain with numbness and tingling. Left shoulder pain. PROTOCOL: Multiplanar multisequence MR images of the thoracic spine were obtained with and without IV contrast CONTRAST: 19 mL of intravenous ProHance COMPARISON: None. FINDINGS: The bones of the thoracic spine are in anatomic alignment. There is preservation of vertebral body heights. There is mild disc height loss at T7-T8. The marrow signal is within normal limits. No epidural or paraspinous fluid collection is appreciated. The visualized paraspinous soft tissues are within normal limits. At T1-T2: There is a normal disc, central canal, and neural foramen. At T2-T3: There is a normal disc, central canal, and neural foramen. At T3-T4: There is a normal disc, central canal, and neural foramen. At T4-T5: There is a normal disc, central canal, and neural foramen. At T5-T6: There is a normal disc, central canal, and neural foramen. At T6-T7: There is a normal disc, central canal, and neural foramen. At T7-T8: There is a normal disc, central canal, and neural foramen. At T8-T9: There is a small focal central disc protrusion without significant stenosis. At T9-T10: There is a normal disc, central canal, and neural foramen. At T10-T11: There is a normal disc, central canal, and neural foramen. At T11-T12: There is a broad-based disc bulge with a more focal left central and subarticular disc protrusion. There is mild spinal canal narrowing with mild left neural foraminal narrowing. At T12-L1: There is a normal disc, central canal, and neural foramen. MR/MR thoracic spine wo/w con IMPRESSION: No cord compression or cord signal abnormality. Mild degenerative changes are noted at T7-T8, T8-T9, and T11-T12, as above. Impression dictated by: Ranjan Orourke M.D.03/01/2024 3:19 PM Dictation Location: [place] [address] Transcribed By: [facility] 03/01/24 1519 Dictated By: Ranjan Orourke II, MD 03/01/24 1516 Signed By: 03/01/24 1519 Normal [facility] XR pre/post mri xrayon 03-01 XR pre/post mri xray [facility] Main [address] [address] XRay Report Signed Patient: Lilly Samuel MR#: [id number] : 1985 Acct:[id number] Age/Sex: 38 / F ADM Date: 03/01/24 Loc: MR Room: Type: [facility] Attending Dr: Saloni Piper PA-C Copies to: Saloni Piper PA-C Ordering Provider: Saloni Piper PA-C Date of Service: 03/01/24 XR/XR pre/post mri xray: R20.2, R29.2 XR pre/post mri xray 03/01/2024 9:41 AM SIGNS AND SYMPTOMS: Left-sided upper and lower extremity pain/numbness and tingling, left shoulder pain PROTOCOLS: Frontal and lateral radiographs of the cervical spine and thoracic spine COMPARISON: None FINDINGS: Cervical spine: The bones are in anatomic alignment with preservation of vertebral body heights and intervertebral disc spaces. No evidence of fracture or bony destructive lesion. Thoracic spine: There is minimal anterior osteophyte formation in the midthoracic spine with mild disc height loss at T7-T8. The vertebral body heights are preserved. No fracture or subluxation. There is evidence of prior cholecystectomy. XR/XR pre/post mri xray IMPRESSION: Cervical spine: No fracture or subluxation. No significant degenerative change. Thoracic spine: Mild degenerative changes are noted at T7-T8 level with minimal anterior osteophyte formation in the thoracic spine. No acute bony injury. Impression dictated by: Ranjan Orourke M.D.03/01/2024 3:31 PM Dictation Location: [place] [address] Transcribed By: [facility] 03/01/24 1531 Dictated By: Ranjan Orourke II, MD 03/01/24 1529 Signed By: 03/01/24 1531 Normal [facility] AMYLASEon 01-19-2023 Amylase [Catalytic activity/Vol] 39 U/L Normal 25-115 [facility] Comment on above: Performed By: #### A MY, LIPA, CMP ####[facility] [address] [place] [id number] Simmons CBC AUTO DIFFon 01-19-2023 BASO # 0.1 103/ul Normal 0.0-0.1 [facility] Comment on above: Performed By: #### C BC ####[facility] [address] [place] [id number]. Nicky Simmons Basophils/100 WBC (Bld) 0.5 % Normal 0.2-2.0 [facility] Comment on above: Performed By: #### C BC ####[facility] [address] [place] [address]Dr. Nicky Simmons EO # 0.2 103/ul Normal 0.0-0.7 [facility] Comment on above: Performed By: #### C BC ####[facility] [address] [place], [place] [address]Dr. Nicky Simmons Eosinophils/100 WBC (Bld) 1.7 % Normal 0.9-7.0 [facility] Comment on above: Performed By: #### C BC ####[facility] [address] [place], [place] [address]Dr. Nicky Simmons Erythrocyte distribution width (RBC) [Ratio] 13.0 % Normal 11.0-15.0 [facility] Comment on above: Performed By: #### C BC ####[facility] [address] [place], [place] [address]Dr. Nicky Simmons Hematocrit (Bld) [Volume fraction] 39.9 % Normal 36.0-48.0 [facility] Comment on above: Performed By: #### C BC ####[facility] [address] [place], [place] [address]Dr. Nicky Simmons Hemoglobin (Bld) [Mass/Vol] 13.2 g/dL Normal 12.0-16.0 [facility] Comment on above: Performed By: #### C BC ####[facility] [address] [place], [place] [address]Dr. Nicky Simmons IG # 0.05 10e3/ul Critically high 0.00-0.03 [facility] Comment on above: Performed By: #### C BC ####[facility] [address] [place] [address]Dr. Nicky Simmons IG % 0.5 % Normal 0.0-0.5 [facility] Comment on above: Performed By: #### C BC ####[facility] [address] [place] [id number]. Nicky Troy LYMPH # 3.1 103/ul Normal 1.2-3.8 [facility] Comment on above: Performed By: #### C BC ####[facility] [address] [place] [id number]. Dulceuday Simmons Lymphocytes/100 WBC (Bld) 28.3 % Normal 20.5-60.0 [facility] Comment on above: Performed By: #### C BC ####[facility] [address] [place] [address]Dr. Dulceuday Simmons MANUAL DIFF REQ NO Normal [facility] Comment on above: Performed By: #### C BC ####[facility] [address] [place] [address]Dr. Nicky Troy MCH (RBC) [Entitic mass] 28.7 pg Normal 26.7-34.0 [facility] Comment on above: Performed By: #### C BC ####[facility] [address] [place], [place] [address]Dr. Nicky Troy MCHC (RBC) [Mass/Vol] 33.1 g/dL Normal 29.9-35.2 [facility] Comment on above: Performed By: #### C BC ####[facility] [address] [place] [address]Dr. Nicky Simmons MCV (RBC) [Entitic vol] 86.7 fL Normal 81.0-99.0 [facility] Comment on above: Performed By: #### C BC ####[facility] [address] [place] [address]Dr. Nicky Simmons MONO # 0.6 103/ul Normal 0.3-0.8 [facility] Comment on above: Performed By: #### C BC ####[facility] [address] [place], [place] [address]Dr. Nicky Simmons Monocytes/100 WBC (Bld) 5.6 % Normal 1.7-12.0 [facility] Comment on above: Performed By: #### C BC ####[facility] [address] [place] [address]Os. Nicky Simmons NEUT # 7.0 103/ul Critically high 1.4-6.5 [facility] Comment on above: Performed By: #### C BC ####[facility] [address] [place] [address]Dr. Nicky Simmons Neutrophils/100 WBC (Bld) 63.4 % Normal 43.0-75.0 [facility] Comment on above: Performed By: #### C BC ####[facility] [address] [place] [address]Dr. Nicky Simmons Platelet mean volume (Bld) [Entitic vol] 9.0 fL Critically low 9.5-13.5 [facility] Comment on above: Performed By: #### C BC ####[facility] [address] [place] [address]Dr. Nicky Simmons PLT 358 103/ul Normal 150-450 [facility] Comment on above: Performed By: #### C BC ####[facility] [address] [place] [address]Dr. Nicky Simmons RBC 4.60 106/ul Normal 4.20-5.40 [facility] Comment on above: Performed By: #### C BC ####[facility] [address] [place] [address]Dr. Nicky Simmons WBC 11.0 103/ul Normal 4.0-11.0 [facility] Comment on above: Performed By: #### C BC ####[facility] [address] [place], [place] [address]Dr. Nicky Simmons CT ABD/PELV W CONon 01-20-20 [...] PRINCESS DESIR Date: 2023-01-19 13:26 Normal [facility] DRUG SCREEN RAPID (URINE)on 01-19-2023 AMP Negative Normal NEGATIVE [facility] Comment on above: Performed By: #### D RUGRPD ####[facility] [address] [place] [address]Dr. uday [facility] BAR Negative Normal NEGATIVE [facility] Comment on above: Performed By: #### D RUGRPD ####[facility] [address] [place] [address]Dr. [facility] BUP Negative Normal NEGATIVE [facility] Comment on above: Performed By: #### D RUGRPD ####[facility] [address] [place] [address]Dr. [facility] BZO Negative Normal NEGATIVE [facility] Comment on above: Performed By: #### D RUGRPD ####[facility] [address] [place] [address]Dr. [facility] DON Negative Normal NEGATIVE [facility] Comment on above: Performed By: #### D RUGRPD ####[facility] [address] [place], [place] [address]Dr. [facility] CUT-OFFS SEE BELOW Normal [facility] Comment on above: Result Comment: AMP (Amphetamine): 500ng/mL, BAR (Barbituates): 200 ng/mL, BZO (Benzodiazepines): 150 ng/mL, BUP (Buprenorphine): 10 ng/mL, DON (Cocaine): 150 ng/mL, mAMP (Methamphetamine): 500 ng/mL, MTD (Methadone): 200 ng/mL, OPI (Opiates): 100 ng/mL, OXY (Oxycodone): 100 ng/mL, PCP (Phencyclidine): 25 ng/mL, PPX (Propoxyphene): 300 ng/mL, THC (Cannabinoids): 50 ng/mL, TCA (Trycyclic Antidepressants): 300 ng/mL Performed By: #### D RUGRPD ####[facility] [address] [place], [place] [address]Dr. uday [facility] DRUG CUT HEADER DRUG CLASS TEST SYSTEM CUT-OFF CONCENTRATIONS ARE FOLLOWS: Normal [facility] Comment on above: Performed By: #### D RUGRPD ####[facility] [address] [place], [place] [address]Dr. Nicky Simmons mAMP Negative Normal NEGATIVE [facility] Comment on above: Performed By: #### D RUGRPD ####[facility] [address] [place], [place] [address]Dr. Nicky Simmons MTD Negative Normal NEGATIVE [facility] Comment on above: Performed By: #### D RUGRPD ####[facility] Of[address] [place], [place] [address]Dr. Nicky [facility] OPI Positive Abnormal NEGATIVE [facility] Comment on above: Performed By: #### D RUGRPD ####[facility] T[address] [place], [place] [address]Dr. Nicky Simmons OXY Negative Normal NEGATIVE [facility] Comment on above: Performed By: #### D RUGRPD ####[facility] [address] [place], [place] [address]Dr. Nicky Simmons PCP Negative Normal NEGATIVE [facility] Comment on above: Performed By: #### D RUGRPD ####[facility] [address] [place], [place] [address] Normal NEGATIVE [facility] Comment on above: Performed By: #### D RUGRPD ####[facility] [address] [place], [place] [address]Dr. Nicky Simmons TCA Negative Normal NEGATIVE [facility] Comment on above: Performed By: #### D RUGRPD ####[facility] [address] [place] [address]Dr. Nicky Simmons THC Positive Abnormal NEGATIVE [facility] Comment on above: Performed By: #### D RUGRPD ####[facility] [address] [place] [address]Dr. Nicky Simmons ER URINE PROFILEon 3 Bilirubin Ql (U) Negative Normal NEGATIVE The [facility] Comment on above: Performed By: #### C BC #### [facility] [address] [place] [address] [address] Nicky Simmons Clarity (U) CLEAR Normal CLEAR [facility] Comment on above: Performed By: #### C BC #### [facility] [address] [place] [address] Dr. Nicky Simmons Color (U) LT. YELLOW Normal YELLOW [facility] Comment on above: Performed By: #### C BC #### [facility] [address] [place] [address] Dr. Nicky Simmons ERUAHMargaux A micrscopic examination will be performed if indicated. Normal [facility] Comment on above: Performed By: #### C BC #### [facility] [address] [place] [address] Dr. Nicky Simmons Glucose Ql (U) Negative Normal NEGATIVE The [facility] Comment on above: Performed By: #### C BC #### [facility] [address] [address] [address] Nicky Simmons Hemoglobin Ql (U) Negative Normal NEGATIVE [facility] Comment on above: Performed By: #### C BC #### [facility] [address] [address] [address] Nicky Simmons Ketones Ql (U) Negative Normal NEGATIVE The [facility] Comment on above: Performed By: #### C BC #### [facility] [address] [place] [address] Dr. Nicky Simmons LEUKOCYTES SMALL Abnormal NEGATIVE [facility] Comment on above: Performed By: #### C BC #### [facility] [address] [place] [address] Dr. Nicky Simmons Nitrite Ql (U) Negative Normal NEGATIVE [facility] Comment on above: Performed By: #### C BC #### [facility] [address] [address] [address] Nicky Simmons pH (U) 6.5 [pH] Normal 5-9 [facility] Comment on above: Performed By: #### C BC #### [facility] [address] [address] [address] Nicky Simmons SPEC GRAVITY <=1.005 Abnormal 1.005-<=1.025 [facility] Comment on above: Performed By: #### C BC #### [facility] [address] [place] [address] [address] Nicky Simmons UA PROTEIN Negative Normal NEGATIVE/ TRACE [facility] Comment on above: Performed By: #### C BC #### [facility] [address] [place] [address] Dr. Nicky Simmons UR MICRO IND INDICATED Normal [facility] Comment on above: Performed By: #### C BC #### [facility] [address] [address] [address] Nicky Simmons Urobilinogen Qn (U) 0.2 {Yan'U}/dL Normal 0.2 - 1. 0 [facility] Comment on above: Performed By: #### C BC #### [facility] [address] [address] [address] Nicky Simmons LIPASEon 01-19-2023 Lipase [Catalytic activity/Vol] 46.0 U/L Critically low 73.0-393.0 [facility] Comment on above: Performed By: #### A JUANI, LIPA, CMP ####[facility] [address] [place] [address]Dr. Nicky Simmons PROF 14(COMP METB)on 023 Albumin [Mass/Vol] 3.1 g/dL Critically low 3.4-5.0 Th [facility] Comment on above: Performed By: #### A MY, LIPA, CMP ####[facility] [address] [place] [address]Dr. Nicky Simmons Albumin/Globulin [Mass ratio] 0.8 {ratio} Normal [facility] Comment on above: Performed By: #### A ROMÁN GLORIA, CMP ####[facility] [address] [place] [address]Dr. Nicky Simmons ALP [Catalytic activity/Vol] 102 U/L Normal 46-116 [facility] Comment on above: Performed By: #### A JUANI LIPA, CMP ####[facility] [address] [place] [address]Dr. Nicky Simmons ALT [Catalytic activity/Vol] 64 U/L Critically high 14-59 [facility] Comment on above: Performed By: #### A ROMÁN GLORIA, CMP ####[facility] [address] [place], [place] [address]Dr. Nicky Simmons Anion gap [Moles/Vol] 15.6 mmol/L Normal [facility] Comment on above: Performed By: #### A JUANI LIPA, CMP ####[facility] [address] [place], [place] [address]Dr. Nicky Simmons AST [Catalytic activity/Vol] 28 U/L Normal 15-37 [facility] Comment on above: Performed By: #### A ROMÁN GLORIA, CMP ####[facility] [address] [place], [place] [address]Dr. Nicky Simmons Bilirubin [Mass/Vol] 0.4 mg/dL Normal 0.2-1.0 [facility] Comment on above: Performed By: #### A JUANI LIPA, CMP ####[facility] [address] [place], [place] [address]Dr. Nicky Simmons Calcium [Mass/Vol] 8.9 mg/dL Normal 8.5-10.1 [facility] Comment on above: Performed By: #### A JUANI LIPA, CMP ####[facility] [address] [place], [place] [address]Dr. Nicky Simmons Chloride [Moles/Vol] 105 mmol/L Normal 98-107 [facility] Comment on above: Performed By: #### A JUANI LIPA, CMP ####[facility] [address] [place] [address]Dr. Nicky Simmons CO2 [Moles/Vol] 23.0 mmol/L Normal 21.0-32.0 [facility] Comment on above: Performed By: #### A MY, LIPA, CMP ####[facility] [address] [place] [address]Dr. Nicky Simmons Creatinine [Mass/Vol] 0.71 mg/dL Normal 0.55-1.02 [facility] Comment on above: Performed By: #### A MY, LIPA, CMP ####[facility] [address] [place] [address]Dr. Nicky Simmons EGFR-AF CITIZEN OF [place] >60 Normal >=60 [facility] Comment on above: Performed By: #### A MY, LIPA, CMP ####[facility] [address] [place], [place] [address]Dr. Nicky Troy EGFR-NON AF CITIZEN OF [place] >60 Normal >=60 [facility] Comment on above: Performed By: #### A MY, LIPA, CMP ####[facility] [address] [place] [address]Dr. Nicky Simmons Globulin (S) [Mass/Vol] 4.0 g/dL Normal [facility] Comment on above: Performed By: #### A MY, LIPA, CMP ####[facility] [address] [place] [address]Dr. Nicky Simmons Glucose [Mass/Vol] 99 mg/dL Normal 74-106 [facility] Comment on above: Performed By: #### A MY, LIPA, CMP ####[facility] [address]iz[address] [place] [address]Dr. Nicky Simmons Potassium [Moles/Vol] 3.6 mmol/L Normal 3.5-5.1 [facility] Comment on above: Performed By: #### A MY, LIPA, CMP ####[facility] [address] [place] [address]Dr. Nicky Troy Protein [Mass/Vol] 7.1 g/dL Normal 6.4-8.2 [facility] Comment on above: Performed By: #### A ROMÁN GLORIA, CMP ####[facility] [address] [place] [address]Dr. Nicky Simmons Sodium [Moles/Vol] 140 mmol/L Normal 136-145 [facility] Comment on above: Performed By: #### A ROMÁN GLORIA, CMP ####[facility] [address] [place] [address]Dr. Nicky Simmons Urea nitrogen [Mass/Vol] 8.0 mg/dL Normal 7.0-18.0 [facility] Comment on above: Performed By: #### A ROMÁN GLORIA, CMP ####[facility] [address] [place] [address]Dr. Nicky Simmons Urea nitrogen/Creatinine [Mass ratio] 11.3 mg/mg Normal [facility] Comment on above: Performed By: #### A ROMÁN GLORIA, CMP ####[facility] [address] [place] [address]Dr. Nicky Simmons URINE MICROSCOPIC ONLYon BACTERIA TRACE Abnormal NONE SEEN [facility] Comment on above: Performed By: #### C BC #### [facility] [address] [place] [address] Dr. Nicky Simmons Bacteria identified Cx Nom (U) INDICATED Normal [facility] Comment on above: Performed By: #### C BC #### [facility] [address] [place] [address] Dr. Nicky Simmons CAST NONE SEEN Normal NONE SEEN [facility] Comment on above: Performed By: #### C BC #### [facility] [address] [place] [address] Dr. Nicky Simmons Crystals LM Nom (Urine sed) NONE SEEN Normal NONE SEEN [facility] Comment on above: Performed By: #### C BC #### [facility] [address] [place] [address] Dr. Nicky Simmons Epithelial cells LM Ql (Urine sed) FEW Abnormal NONE SEEN /RARE [facility] Comment on above: Performed By: #### C BC #### [facility] [address] [place] [address] Dr. Nicky Simmons MUCOUS NONE SEEN Normal NONE SEEN [facility] Comment on above: Performed By: #### C BC #### [facility] [address] [place] [address] Dr. Nicky Simmons RBC 0-2 Normal 0-2 [facility] Comment on above: Performed By: #### C BC #### [facility] [address] [place] [address] Dr. Nicky Simmons WBC 2-5 Abnormal NONE SEEN [facility] Comment on above: Performed By: #### C BC #### [facility] [address] [place] [address] Dr. Nicky Simmons XR CHEST 1 Von [...] SREE MCCLENDON Date: 2023-01-11 21:21 Normal [facility] CBC AUTO DIFFon 12-18-2022 BASO # 0.0 103/ul Normal 0.0-0.1 [facility] Comment on above: Performed By: #### C BC #### [facility] [address] [place] [address] Dr. Nicky Simmons Basophils/100 WBC (Bld) 0.3 % Normal 0.2-2.0 [facility] Comment on above: Performed By: #### C BC #### [facility] [address] [place] [address] Dr. Nicky Simmons EO # 0.2 103/ul Normal 0.0-0.7 [facility] Comment on above: Performed By: #### C BC #### [facility] [address] [place] [address] Dr. Nicky Simmons Eosinophils/100 WBC (Bld) 1.4 % Normal 0.9-7.0 [facility] Comment on above: Performed By: #### C BC #### [facility] [address] [place] [address] Dr. Nicky Simmons Erythrocyte distribution width (RBC) [Ratio] 13.0 % Normal 11.0-15.0 [facility] Comment on above: Performed By: #### C BC #### [facility] [address] [place] [address] Dr. Nicky Simmons Hematocrit (Bld) [Volume fraction] 40.3 % Normal 36.0-48.0 [facility] Comment on above: Performed By: #### C BC #### [facility] [address] [place] [address] Dr. Nicky Simmons Hemoglobin (Bld) [Mass/Vol] 13.5 g/dL Normal 12.0-16.0 [facility] Comment on above: Performed By: #### C BC #### [facility] [address] [place] [address] Dr. Nicky Simmons IG # 0.03 10e3/ul Normal 0.00-0.03 [facility] Comment on above: Performed By: #### C BC #### [facility] [address] [place] [address] Dr. Nicky Simmons IG % 0.3 % Normal 0.0-0.5 [facility] Comment on above: Performed By: #### C BC #### [facility] [address] [place] [address] Dr. Nicky Simmons LYMPH # 3.3 103/ul Normal 1.2-3.8 [facility] Comment on above: Performed By: #### C BC #### [facility] [address] [place] [address] Dr. Nicky Simmons Lymphocytes/100 WBC (Bld) 27.9 % Normal 20.5-60.0 [facility] Comment on above: Performed By: #### C BC #### [facility] [address] [place] [address] Dr. Nicky Simmons MANUAL DIFF REQ NO Normal [facility] Comment on above: Performed By: #### C BC #### [facility] [address] [address] [address] Nicky Simmons MCH (RBC) [Entitic mass] 29.3 pg Normal 26.7-34.0 [facility] Comment on above: Performed By: #### C BC #### [facility] [address] [place] [address] Dr. Nicky Simmons MCHC (RBC) [Mass/Vol] 33.5 g/dL Normal 29.9-35.2 [facility] Comment on above: Performed By: #### C BC #### [facility] [address] [address] [address] Nicky Simmons MCV (RBC) [Entitic vol] 87.4 fL Normal 81.0-99.0 [facility] Comment on above: Performed By: #### C BC #### [facility] [address] [place] [address] Dr. Nicky Simmons MONO # 0.7 103/ul Normal 0.3-0.8 [facility] Comment on above: Performed By: #### C BC #### [facility] [address] [place] [address] Dr. Nicky Simmons Monocytes/100 WBC (Bld) 6.0 % Normal 1.7-12.0 [facility] Comment on above: Performed By: #### C BC #### [facility] [address] [place] [address] Dr. Nicky Simmons NEUT # 7.6 103/ul Critically high 1.4-6.5 [facility] Comment on above: Performed By: #### C BC #### [facility] [address] [place] [address] Dr. Nicky Simmons Neutrophils/100 WBC (Bld) 64.1 % Normal 43.0-75.0 [facility] Comment on above: Performed By: #### C BC #### [facility] [address] [place] [address] Dr. Nicky Simmons Platelet mean volume (Bld) [Entitic vol] 9.1 fL Critically low 9.5-13.5 [facility] Comment on above: Performed By: #### C BC #### [facility] [address] [place] [address] Dr. Nicky Simmons PLT 381 103/ul Normal 150-450 [facility] Comment on above: Performed By: #### C BC #### [facility] [address] [place] [address] Dr. Nicky Simmons RBC 4.61 106/ul Normal 4.20-5.40 [facility] Comment on above: Performed By: #### C BC #### [facility] [address] [place] [address] Dr. Nicky Simmons WBC 11.9 103/ul Critically high 4.0-11.0 [facility] Comment on above: Performed By: #### C BC #### [facility] [address] [place] [address] Dr. Nicky Simmons PROTIMEon 12-18-2022 INR Coag (PPP) [Relative time] {INR} Normal [facility] Comment on above: Performed By: #### I NFLUAB #### [facility] [address] [place] [address] Dr. Nicky Simmons INR GUIDELINES SEE BELOW Normal [facility] Comment on above: Result Comment: LEOPOLDO RED INR: 2.0 - 3.0 CONDITIONS NOT LISTED BELOW 2.5 - 3.5 FOR PROSTHETIC HEART VALVE REPLACEMENT 2.5 - 3.5 RECURRENT THROMBOSIS Performed By: #### I NFLUAB #### [facility] [address] [place] [address] Dr. Nicky Simmons PT Coag (PPP) [Time] 9.7 s Normal 9.0-11.6 [facility] Comment on above: Performed By: #### I NFLUAB #### [facility] [address] [place] [address] Dr. Nicky Simmons PTTon 12-18-2022 aPTT Coag (Bld) [Time] 27.9 s Normal 22.3-36.2 [facility] Comment on above: Performed By: #### I NFLUAB #### [facility] [address] [place] [address] Dr. Nicky Simmons Covid-19 PCR (CVDTB)on 11-03 SARS-CoV-2 (COVID-19) RNA GOKUL+probe Ql (Unsp spec) Not detected Normal NOT DETECTED [facility] Comment on above: Result Comment: When diagnostic [...] for this test is supported by the Technical Services Consultant of Health and Human Service's declaration that [...] used). Performed By: #### C VDTBH #### [facility] [address] [place] [address] Dr. Nicky Simmons GROUP A STREP CULTUREon 11-03 S. pyogenes Ag Ql (Unsp spec) Culture Observations: NEGATIVE FOR GROUP A STREPTOCOCCUS. Normal [facility] Comment on above: Performed By: #### C BC #### [facility] [address] [place] [address] Dr. Nicky Simmons INFLUENZA A AND B AGon 11-13 INFLUENZA A AG Negative Normal NEGATIVE SEE COMMENT [facility] Comment on above: Performed By: #### I NFLUAB #### [facility] [address] [place] [address] [address] [address] Nicky Simmons INFLUENZA B AG Negative Normal NEGATIVE SEE COMMENT [facility] Comment on above: Performed By: #### I NFLUAB #### [facility] [address] [place] [address] [address] [address] Nicky Simmons STREPT SCREENon 11-13-2022 STREP SCREEN A Negative Normal NEGATIVE [facility] Comment on above: Performed By: #### C BC #### [facility] [address] [place] [address] Dr. Nicky Simmons GROUP A STREP CULTUREon 10-07 S. pyogenes Ag Ql (Unsp spec) Culture Observations: NEGATIVE FOR GROUP A STREPTOCOCCUS. Normal [facility] Comment on above: Performed By: #### C BC #### [facility] [address] [place] [address] Dr. Nicky Simmons STREPT SCREENon 11-02-2022 STREP SCREEN A Negative Normal NEGATIVE [facility] Comment on above: Performed By: #### C BC #### [facility] [address] [place] [address] Dr. Nicky Simmons CBC AUTO DIFFon 10-22-2022 BASO # 0.0 103/ul Normal 0.0-0.1 [facility] Comment on above: Performed By: #### C BC #### [facility] [address] [place] [address] Dr. Nicky Simmons Basophils/100 WBC (Bld) 0.3 % Normal 0.2-2.0 [facility] Comment on above: Performed By: #### C BC #### [facility] [address] [place] [address] Dr. Nicky Simmons EO # 0.2 103/ul Normal 0.0-0.7 [facility] Comment on above: Performed By: #### C BC #### [facility] [address] [place] [address] Dr. Nicky Simmons Eosinophils/100 WBC (Bld) 1.2 % Normal 0.9-7.0 [facility] Comment on above: Performed By: #### C BC #### [facility] [address] [place] [address] Dr. Nicky Simmons Erythrocyte distribution width (RBC) [Ratio] 12.9 % Normal 11.0-15.0 [facility] Comment on above: Performed By: #### C BC #### [facility] [address] [place] [address] Dr. Nicky Simmons Hematocrit (Bld) [Volume fraction] 45.3 % Normal 36.0-48.0 [facility] Comment on above: Performed By: #### C BC #### [facility] [address] [place] [address] Dr. Nicky Simmons Hemoglobin (Bld) [Mass/Vol] 15.1 g/dL Normal 12.0-16.0 [facility] Comment on above: Performed By: #### C BC #### [facility] [address] [place] [address] Dr. Nicky Simmons IG # 0.07 10e3/ul Critically high 0.00-0.03 [facility] Comment on above: Performed By: #### C BC #### [facility] [address] [place] [address] Dr. Nicky Simmons IG % 0.4 % Normal 0.0-0.5 [facility] Comment on above: Performed By: #### C BC #### [facility] [address] [place] [address] Dr. Nicky Simmons LYMPH # 1.1 103/ul Critically low 1.2-3.8 [facility] Comment on above: Performed By: #### C BC #### [facility] [address] [place] [address] Dr. Nicky Simmons Lymphocytes/100 WBC (Bld) 7.1 % Critically low 20.5-60.0 [facility] Comment on above: Performed By: #### C BC #### [facility] [address] [place] [address] Dr. Nicky Simmons MANUAL DIFF REQ NO Normal [facility] Comment on above: Performed By: #### C BC #### [facility] [address] [place] [address] Dr. Nicky Simmons MCH (RBC) [Entitic mass] 28.8 pg Normal 26.7-34.0 [facility] Comment on above: Performed By: #### C BC #### [facility] [address] [place] [address] Dr. Nicky Simmons MCHC (RBC) [Mass/Vol] 33.3 g/dL Normal 29.9-35.2 [facility] Comment on above: Performed By: #### C BC #### [facility] [address] [address] [address] Nicky Simmons MCV (RBC) [Entitic vol] 86.3 fL Normal 81.0-99.0 [facility] Comment on above: Performed By: #### C BC #### [facility] [address] [address] [address] Nicky Simmons MONO # 0.4 103/ul Normal 0.3-0.8 [facility] Comment on above: Performed By: #### C BC #### [facility] Laboratory [address] [address] [address] Nicky Simmons Monocytes/100 WBC (Bld) 2.6 % Normal 1.7-12.0 [facility] Comment on above: Performed By: #### C BC #### [facility] [address] [place] [address] Dr. Nicky Simmons NEUT # 14.0 103/ul Critically high 1.4-6.5 [facility] Comment on above: Performed By: #### C BC #### [facility] [address] [place] [address] Dr. Nicky Simmons Neutrophils/100 WBC (Bld) 88.4 % Critically high 43.0-75.0 [facility] Comment on above: Performed By: #### C BC #### [facility] [address] [address] [address] Nicky Simmons Platelet mean volume (Bld) [Entitic vol] 9.4 fL Critically low 9.5-13.5 [facility] Comment on above: Performed By: #### C BC #### [facility] [address] [address] [address] Nicky Simmons PLT 399 103/ul Normal 150-450 [facility] Comment on above: Performed By: #### C BC #### [facility] [address] [address] [address] Nicky Simmons RBC 5.25 106/ul Normal 4.20-5.40 [facility] Comment on above: Performed By: #### C BC #### [facility] [address] [place], [place] [address] Dr. Nicky Simmons WBC 15.9 103/ul Critically high 4.0-11.0 [facility] Comment on above: Performed By: #### C BC #### [facility] [address] [place], [place] [address] ABD/PELVIS WO CONon [...] JUDY CONKLIN Date: 2022-10-22 00:08 Normal [facility] ER URINE PROFILEon 3 Bilirubin Ql (U) SMALL Abnormal NEGATIVE [facility] Comment on above: Performed By: #### E RUR, PREGU ####[facility] Fl[address] [place], [place] [address]Dr. Nicky Simmons Clarity (U) CLEAR Normal CLEAR [facility] Comment on above: Performed By: #### E RUR, PREGU ####[facility] Dh[address] [place], [place] [address]Dr. Nicky Simmons Color (U) DK. YELLOW Normal YELLOW [facility] Comment on above: Performed By: #### E RUR, PREGU ####[facility] Rxgwbymcsr[address] [place], [place] [address]Dr. Nicky Simmons ERUAHD A micrscopic examination will be performed if indicated. Normal [facility] Comment on above: Performed By: #### E RUR, PREGU ####[facility] Fcxxaklecs[address] [place], [place] [address]Dr. Nicky Simmons Glucose Ql (U) Negative Normal NEGATIVE The [facility] Comment on above: Performed By: #### E RUR, PREGU ####[facility] [address] [place], [place] [address]Dr. Nicky Simmons Hemoglobin Ql (U) Negative Normal NEGATIVE The [facility] Comment on above: Performed By: #### E RUR, PREGU ####[facility] F[address]eby[address] [place], [place] [address]Dr. Nicky Simmons Ketones Ql (U) 15 mg/dl Abnormal NEGATIVE The [facility] Comment on above: Performed By: #### E RUR, PREGU ####[facility] Y[address] [place], [place] [address]Dr. Dulceuday Simmons LEUKOCYTES Negative Normal NEGATIVE [facility] Comment on above: Performed By: #### E RUR, PREGU ####[facility] [address] [place], [place] [address]Dr. Dulcelan Simmons Nitrite Ql (U) Negative Normal NEGATIVE The [facility] Comment on above: Performed By: #### E RUR, PREGU ####[facility] Nqqvbq[address] [place], [place] [address]Dr. Yilan Simmons pH (U) 5.0 [pH] Normal 5-9 [facility] Comment on above: Performed By: #### E RUR, PREGU ####[facility] [address] [address]Dr. Nicky Simmons SPEC GRAVITY >=1.030 Abnormal 1.005-<=1.025 The [facility] Comment on above: Performed By: #### E RUR, PREGU ####[facility] S[address] [place], [place] [address]Dr. Nicky Simmons UA PROTEIN TRACE Normal NEGATIVE/ TRACE [facility] Comment on above: Performed By: #### E RUR, PREGU ####[facility] Qgqqrzvph[address] [place], [place] [address]Dr. Nicky Simmons UR MICRO IND NOT INDICATED Normal The [facility] Comment on above: Performed By: #### Ashley RUR, PREGU ####[facility] T[address] [place], [place] [address]Dr. Nicky Simmons Urobilinogen Qn (U) 0.2 {Yan'U}/dL Normal 0.2 - 1. 0 [facility] Comment on above: Performed By: #### Ashley JONES, PREGU ####[facility] Ak[address]se[address] [place], [place] [address]Dr. Nicky Simmons LIPASEon 10-22-2022 Lipase [Catalytic activity/Vol] 56.0 U/L Critically low 73.0-393.0 [facility] Comment on above: Performed By: #### L IPA ####[facility] K[address] [place], [place] [address]Dr. Nicky Simmons PREG HCG QUALon 10-22-2022 , QUAL Negative Normal NEGATIVE The [facility] Comment on above: Performed By: #### P REG ####[facility] [address] [place], [place] [address]Dr. Nicky Simmons URon 10-22-2022 , QUAL Negative Normal NEGATIVE The [facility] Comment on above: Performed By: #### Ashley RUR, PREGU ####[facility] [address] [address]Dr. Nicky Simmons PROF 14(COMP METB)on 023 Albumin [Mass/Vol] 3.7 g/dL Normal 3.4-5.0 [facility] Comment on above: Performed By: #### I NFLUAB #### [facility] [address] [address] [address] Nicky Simmons Albumin/Globulin [Mass ratio] 0.9 {ratio} Normal [facility] Comment on above: Performed By: #### I NFLUAB #### [facility] [address] [address] [address] Nicky Simmons ALP [Catalytic activity/Vol] 128 U/L Critically high 46-116 [facility] Comment on above: Performed By: #### I NFLUAB #### [facility] [address] [address] [address] Nicky Simmons ALT [Catalytic activity/Vol] 38 U/L Normal 14-59 [facility] Comment on above: Performed By: #### I NFLUAB #### [facility] [address] [address] [address] Nicky Simmons Anion gap [Moles/Vol] 17.1 mmol/L Normal [facility] Comment on above: Performed By: #### I NFLUAB #### [facility] [address] [address] [address] Nicky Simmons AST [Catalytic activity/Vol] 27 U/L Normal 15-37 [facility] Comment on above: Performed By: #### I NFLUAB #### [facility] [address] [address] [address] Nicky Simmons Bilirubin [Mass/Vol] 0.5 mg/dL Normal 0.2-1.0 [facility] Comment on above: Performed By: #### I NFLUAB #### [facility] [address] [address] [address] Nicky Simmons Calcium [Mass/Vol] 8.9 mg/dL Normal 8.5-10.1 [facility] Comment on above: Performed By: #### I NFLUAB #### [facility] [address] [address] [address] Nicky Simmons Chloride [Moles/Vol] 102 mmol/L Normal 98-107 [facility] Comment on above: Performed By: #### I NFLUAB #### [facility] [address] [address] [address] Nicky Simmons CO2 [Moles/Vol] 21.9 mmol/L Normal 21.0-32.0 [facility] Comment on above: Performed By: #### I NFLUAB #### [facility] [address] [address] [address] Nicky Simmons Creatinine [Mass/Vol] 0.77 mg/dL Normal 0.55-1.02 [facility] Comment on above: Performed By: #### I NFLUAB #### [facility] [address] [place] [address] Dr. Nicky Simmons EGFR-AF CITIZEN OF [place] >60 Normal >=60 [facility] Comment on above: Performed By: #### I NFLUAB #### [facility] [address] [address] [address] Nicky Simmons EGFR-NON AF CITIZEN OF [place] >60 Normal >=60 [facility] Comment on above: Performed By: #### I NFLUAB #### [facility] [address] [address] [address] Nicky Simmons Globulin (S) [Mass/Vol] 3.9 g/dL Normal [facility] Comment on above: Performed By: #### I NFLUAB #### [facility] [address] [address] [address] Nicky Simmons Glucose [Mass/Vol] 105 mg/dL Normal 74-106 [facility] Comment on above: Performed By: #### I NFLUAB #### [facility] [address] [address] [address] Nicky Simmons Potassium [Moles/Vol] 4.0 mmol/L Normal 3.5-5.1 [facility] Comment on above: Performed By: #### I NFLUAB #### [facility] [address] [address] [address] Nicky Simmons Protein [Mass/Vol] 7.6 g/dL Normal 6.4-8.2 [facility] Comment on above: Performed By: #### I NFLUAB #### [facility] [address] [address] [address] Nicky Simmons Sodium [Moles/Vol] 137 mmol/L Normal 136-145 [facility] Comment on above: Performed By: #### I NFLUAB #### [facility] [address] [address] [address] Nicky Simmons Urea nitrogen [Mass/Vol] 12.0 mg/dL Normal 7.0-18.0 [facility] Comment on above: Performed By: #### I NFLUAB #### [facility] [address] [place] [address] Dr. Nicky Simmons Urea nitrogen/Creatinine [Mass ratio] 15.6 mg/mg Normal [facility] Comment on above: Performed By: #### I NFLUAB #### [facility] [address] [place] [address] Dr. Nicky Simmons CBC AUTO DIFFon 09-06-2022 BASO # 0.1 103/ul Normal 0.0-0.1 [facility] Comment on above: Performed By: #### C BC ####[facility] [address] [address]DrBella Simmons Basophils/100 WBC (Bld) 0.5 % Normal 0.2-2.0 [facility] Comment on above: Performed By: #### C BC ####[facility] [address] [address]DrBella Simmons EO # 0.3 103/ul Normal 0.0-0.7 [facility] Comment on above: Performed By: #### C BC ####[facility] [address] [address]Dr. Nicky Simmons Eosinophils/100 WBC (Bld) 2.4 % Normal 0.9-7.0 [facility] Comment on above: Performed By: #### C BC ####[facility] [address] [address]Dr. Nicky Simmons Erythrocyte distribution width (RBC) [Ratio] 12.7 % Normal 11.0-15.0 [facility] Comment on above: Performed By: #### C BC ####[facility] [address] [address]Dr. Nicky Simmons Hematocrit (Bld) [Volume fraction] 37.5 % Normal 36.0-48.0 [facility] Comment on above: Performed By: #### C BC ####[facility] [address] [address]Dr. Nicky Simmons Hemoglobin (Bld) [Mass/Vol] 12.6 g/dL Normal 12.0-16.0 [facility] Comment on above: Performed By: #### C BC ####[facility] [address] [place], [place] [address]Dr. Nicky Simmons IG # 0.05 10e3/ul Critically high 0.00-0.03 [facility] Comment on above: Performed By: #### C BC ####[facility] [address] [place], [place] [address]Dr. Nicky Simmons IG % 0.4 % Normal 0.0-0.5 [facility] Comment on above: Performed By: #### C BC ####[facility] [address] [place], [place] [address]Dr. Nicky Simmons LYMPH # 2.9 103/ul Normal 1.2-3.8 [facility] Comment on above: Performed By: #### C BC ####[facility] [address]uf[address] [place], [place] [address]Dr. Nicky Simmons Lymphocytes/100 WBC (Bld) 25.2 % Normal 20.5-60.0 [facility] Comment on above: Performed By: #### C BC ####[facility] [address] [address]Dr. Nicky Simmons MANUAL DIFF REQ NO Normal [facility] Comment on above: Performed By: #### C BC ####[facility] [address] [address]Dr. Nicky Simmons MCH (RBC) [Entitic mass] 29.4 pg Normal 26.7-34.0 [facility] Comment on above: Performed By: #### C BC ####[facility] [address] [address]Dr. Nicky Simmons MCHC (RBC) [Mass/Vol] 33.6 g/dL Normal 29.9-35.2 [facility] Comment on above: Performed By: #### C BC ####[facility] [address] [address]Dr. Nicky Simmons MCV (RBC) [Entitic vol] 87.4 fL Normal 81.0-99.0 [facility] Comment on above: Performed By: #### C BC ####[facility] [address] [place], [place] [address]Dr. Nicky Troy MONO # 0.7 103/ul Normal 0.3-0.8 [facility] Comment on above: Performed By: #### C BC ####[facility] [address] [address]Dr. Dulceuday Simmons Monocytes/100 WBC (Bld) 6.4 % Normal 1.7-12.0 [facility] Comment on above: Performed By: #### C BC ####[facility] [address] [address]Dr. Nicky Simmons NEUT # 7.5 103/ul Critically high 1.4-6.5 The [facility] Comment on above: Performed By: #### C BC ####[facility] [address] [place], [place] [address]Dr. Dulceuday Simmons Neutrophils/100 WBC (Bld) 65.1 % Normal 43.0-75.0 [facility] Comment on above: Performed By: #### C BC ####[facility] [address] [place], [place] [address]Dr. Nicky Troy Platelet mean volume (Bld) [Entitic vol] 9.1 fL Critically low 9.5-13.5 [facility] Comment on above: Performed By: #### C BC ####[facility] [address] [place], [place] [address]Gl. Nicky Simmons PLT 380 103/ul Normal 150-450 [facility] Comment on above: Performed By: #### C BC ####[facility] [address] [place], [place] [address]Zp. Nicky Simmons RBC 4.29 106/ul Normal 4.20-5.40 [facility] Comment on above: Performed By: #### C BC ####[facility] [address] [place], [place] [address]Ph. Nicky Simmons WBC 11.5 103/ul Critically high 4.0-11.0 [facility] Comment on above: Performed By: #### C BC ####[facility] [address] [place], [place] [address]Fw. Nicky Simmons CTA CHEST WO W CONon 023 [...] MUKUND MASSEY Date: 2022-09-06 19:34 Normal [facility] Covid-19 PCR (CVDTB)on SARS-CoV-2 (COVID-19) RNA GOKUL+probe Ql (Unsp spec) Not detected Normal NOT DETECTED [facility] Comment on above: Result Comment: This test is not yet approved or cleared by the [place] FDA. When there are no FDA-approved or cleared tests available, and other criteria are met, FDA can make tests available under an emergency access mechanism called an Emergency Use Authorization (EUA). The EUA for this test is supported by the Technical Services Consultant of Health and Human Service's (HHS's) declaration [...] with SARS-CoV-2. Performed By: #### C VDTBH ####[facility] [address] [place], [place] [address]Dr. Nicky Simmons D-DIMERon 09-06-2022 D-DIMER 0.62 mg/L FEU Critically high <=0.59 [facility] Comment on above: Performed By: #### D DIM ####[facility] [address] [address]Dr. Nicky Simmons D-DIMER COMMENTS SEE BELOW Normal [facility] Comment on above: Result Comment: Incr eases [...] generalized hospitalization. Performed By: #### D DIM ####[facility] [address] [place], [place] [address]Dr. Nicky Simmons INFLUENZA A AND B AGon 09-06 [facility] BEL[facility] Normal [facility] Comment on above: Result Comment: Nega tive for Flu A protein angiten. Infection due to Flu A cannot be ruled out. Flu A angiten in the sample may be below the detection limit of the test. Performed By: #### C BC #### [facility] [address] [place] [address] Dr. Nicky Simmons INFLUBNEG SEE BELOW Normal [facility] Comment on above: Result Comment: Nega tive for Flu B protein antigen. Infection due to Flu B cannot be ruled out. Flu B antigen in the sample may be below the detection limit of the test. Performed By: #### C BC #### [facility] [address] [place] [address] Dr. Nicky Simmons INFLUENZA A AG Negative Normal NEGATIVE SEE COMMENT [facility] Comment on above: Performed By: #### C BC #### [facility] [address] [place] [address] Dr. Nicky Simmons INFLUENZA B AG Negative Normal NEGATIVE SEE COMMENT [facility] Comment on above: Performed By: #### C BC #### [facility] [address] [place] [address] Dr. Nicky Simmons PROF CHEM 8 (BAS METB)on Anion gap [Moles/Vol] 12.7 mmol/L Normal [facility] Comment on above: Performed By: #### I NFLUAB #### [facility] [address] [place] [address] Dr. Nicky Simmons Calcium [Mass/Vol] 8.6 mg/dL Normal 8.5-10.1 [facility] Comment on above: Performed By: #### I NFLUAB #### [facility] [address] [place] [address] Dr. Nicky Simmons Chloride [Moles/Vol] 103 mmol/L Normal 98-107 [facility] Comment on above: Performed By: #### I NFLUAB #### [facility] [address] [place] [address] Dr. Nicky Simmons CO2 [Moles/Vol] 24.9 mmol/L Normal 21.0-32.0 [facility] Comment on above: Performed By: #### I NFLUAB #### [facility] [address] [place] [address] Dr. Nicky Simmons Creatinine [Mass/Vol] 0.86 mg/dL Normal 0.55-1.02 [facility] Comment on above: Performed By: #### I NFLUAB #### [facility] [address] [address] [address] Nicky Simmons EGFR-AF CITIZEN [place] >60 Normal >=60 [facility] Comment on above: Performed By: #### I NFLUAB #### [facility] [address] [place] [address] Dr. Nicky Simmons EGFR-NON AF CITIZEN OF [place] >60 Normal >=60 [facility] Comment on above: Performed By: #### I NFLUAB #### [facility] [address] [place] [address] Dr. Nicky Simmons Glucose [Mass/Vol] 113 mg/dL Critically high 74-106 [facility] Comment on above: Performed By: #### I NFLUAB #### [facility] [address] [place] [address] Dr. Nicky Simmons Potassium [Moles/Vol] 3.6 mmol/L Normal 3.5-5.1 [facility] Comment on above: Performed By: #### I NFLUAB #### [facility] [address] [place] [address] Dr. Nicky Simmons Sodium [Moles/Vol] 137 mmol/L Normal 136-145 [facility] Comment on above: Performed By: #### I NFLUAB #### [facility] [address] [address] [address] Nicky Simmons Urea nitrogen [Mass/Vol] 9.0 mg/dL Normal 7.0-18.0 [facility] Comment on above: Performed By: #### I NFLUAB #### [facility] [address] [place] [address] Dr. Nicky Simmons Urea nitrogen/Creatinine [Mass ratio] 10.5 mg/mg Normal [facility] Comment on above: Performed By: #### I NFLUAB #### [facility] [address] [address] [address] Nicky Simmons XR CHEST 1 Von 09-06-2022 XR CHEST 1 V CHEST X-RAY, 1 VIEW HISTORY: Cough. COMPARISON: 05/17/2022. FINDINGS: The heart, angel, and mediastinum are unremarkable. The lungs are grossly clear. There are no pleural effusions. There is no pneumothorax. IMPRESSION: No evidence of acute cardiopulmonary disease. Electronically authenticated by: ESTHER MARY Date: 2022-09-06 18:22 Normal [facility] COVID-19 Positive/NegativeOr dered By: Christopher Mendez on 06-28-2022 SARS-CoV-2 (COVID-19) N gene GOKUL+probe Ql (Resp) Negative Negative [facility] Comment on above: Testing for SARS-CoV -2 by RT-PCRThis test was developed and its performance characteristics determined by [employer] and validated at the [facility]. This test has not been FDA cleared [...] NEGATIVE FOR GROUP A STREPTOCOCCUS. Normal [facility] Comment on above: Performed By: #### S SCRN, GRASTCX #### [facility] [address], [place] [address] Dr. Nicky Simmons INFLUENZA A AND B AGon 05-17 INFLUENZA A AG Negative Normal NEGATIVE SEE COMMENT [facility] Comment on above: Performed By: #### C BC #### [facility] [address] [address] [address] Nicky Simmons INFLUENZA B AG Negative Normal NEGATIVE SEE COMMENT [facility] Comment on above: Performed By: #### C BC #### [facility] [address] [address] [address] Nicky Simmons INTERNAL CONTROLS Within Normal Limits Normal Wi thin Normal Limits [facility] Comment on above: Performed By: #### C BC #### [facility] [address] [address] [address] Nicky Simmons RESPIRATORY PANEL PLUSon Adenovirus Not detected Normal NOT DETECTED [facility] Comment on above: Performed By: #### R SPLUS ####[facility] [address] [place], [place] [address]Dr. Nicky Simmons B. Parapertusis Not detected Normal NOT DETECTED [facility] Comment on above: Performed By: #### R SPLUS ####[facility] [address] [place], [place] [address]Dr. Nicky Simmons B. Pertussis Not detected Normal NOT DETECTED [facility] Comment on above: Performed By: #### R SPLUS ####[facility] [address] [address]Dr. Nicky Simmons Chlamydia Pneumoniae Not detected Normal NOT DETECTED [facility] Comment on above: Performed By: #### R SPLUS ####[facility] [address] [address]Dr. Nicky Simmons Coronavirus 229E Not detected Normal NOT DETECTED [facility] Comment on above: Performed By: #### R SPLUS ####[facility] [address] [place], [place] [address]Dr. Nicky Simmons Coronavirus HKU1 Not detected Normal NOT DETECTED [facility] Comment on above: Performed By: #### R SPLUS ####[facility] [address] [place], [place] [address]Dr. Nicky Simmons Coronavirus NL63 Not detected Normal NOT DETECTED [facility] Comment on above: Performed By: #### R SPLUS ####[facility] [address] [place], [place] [address]Dr. Nicky Simmons Coronavirus OC43 Not detected Normal NOT DETECTED [facility] Comment on above: Performed By: #### R SPLUS ####[facility] [address] [place], [place] [address]Dr. Nicky Simmons Influenza A H1 2009 Not detected Normal NOT DETECTED [facility] Comment on above: Performed By: #### R SPLUS ####[facility] [address] [place], [place] [address]Dr. Nicky Simmons Influenza A H3 Not detected Normal NOT DETECTED [facility] Comment on above: Performed By: #### R SPLUS ####[facility] [address] [place], [place] [address]Dr. Nicky Simmons Influenza B Not detected Normal NOT DETECTED The [facility] Comment on above: Performed By: #### R SPLUS ####[facility] [address] [place], [place] [address]Dr. Nicky Simmons Metapneumovirus Not detected Normal NOT DETECTED The [facility] Comment on above: Performed By: #### R SPLUS ####[facility] [address] [place], [place] [address]Dr. Nicky Simmons Mycoplas. Pneumoniae Not detected Normal NOT DETECTED [facility] Comment on above: Performed By: #### R SPLUS ####[facility] [address] [place], [place] [address]Dr. Nicky Simmons Parainfluenza 1 Not detected Normal NOT DETECTED [facility] Comment on above: Performed By: #### R SPLUS ####[facility] [address] [place], [place] [address]Dr. Nicky Simmons Parainfluenza 2 Not detected Normal NOT DETECTED [facility] Comment on above: Performed By: #### R SPLUS ####[facility] [address] [place], [place] [address]Dr. Yilan Simmons Parainfluenza 3 Not detected Normal NOT DETECTED [facility] Comment on above: Performed By: #### R SPLUS ####[facility] [address] [place], [place] [address]Dr. Dulceuday Simmons Parainfluenza 4 Not detected Normal NOT DETECTED [facility] Comment on above: Performed By: #### R SPLUS ####[facility] [address] [place], [place] [address]Dr. Nicky Simmons Rhino/Enterovirus Detected Abnormal NOT DETECTED [facility] Comment on above: Performed By: #### R SPLUS ####[facility] [address] [place], [place] [address]Dr. Nicky Simmons RP2 Header 1 RESPIRATORY PANEL: VIRUSES Normal [facility] Comment on above: Performed By: #### R SPLUS ####[facility] [address] [place], [place] [address]Dr. Nicky Simmons RP2 Header 2 RESPIRATORY PANEL: BACTERIA Normal [facility] Comment on above: Performed By: #### R SPLUS ####[facility] [address] [place], [place] [address]Dr. Nicky Simmons RSV Not detected Normal NOT DETECTED The [facility] Comment on above: Performed By: #### R SPLUS ####[facility] [address] [place], [place] [address]Dr. Nicky Simmons SARS-CoV-2 (COVID-19) RNA GOKUL+probe Ql (Unsp spec) Not detected Normal NOT DETECTED [facility] Comment on above: Performed By: #### R SPLUS ####[facility] [address] [place], [place] [address]Dr. Nicky Simmons Result Comment: When diagnostic testing [...] for this test is supported by the [place] of Health and Human Service's declaration that [...] used). Performed By: #### I NFLUAB #### [facility] [address] [address] [address] Nicky Simmons STREPT SCREENon 05-17-2022 STREP SCREEN A Negative Normal NEGATIVE The [facility] Comment on above: Performed By: #### S SCRN, GRASTCX #### [facility] [address] [place] [address] Dr. Nicky Simmons XR CHEST 1 Von [...] by: LOUIE LIRIANO Date: 2022-05-17 15:42 Normal [facility] CBC AUTO DIFFon 04-16-2022 BASO # 0.1 103/ul Normal 0.0-0.1 [facility] Comment on above: Performed By: #### C BC #### [facility] [address] [place] [address] Dr. Nicky Simmons Basophils/100 WBC (Bld) 0.5 % Normal 0.2-2.0 [facility] Comment on above: Performed By: #### C BC #### [facility] [address] [place] [address] Dr. Nicky Simmons EO # 0.2 103/ul Normal 0.0-0.7 [facility] Comment on above: Performed By: #### C BC #### [facility] [address] [place] [address] Dr. Nicky Simmons Eosinophils/100 WBC (Bld) 2.1 % Normal 0.9-7.0 [facility] Comment on above: Performed By: #### C BC #### [facility] [address] [place] [address] Dr. Nicky Simmons Erythrocyte distribution width (RBC) [Ratio] 13.0 % Normal 11.0-15.0 [facility] Comment on above: Performed By: #### C BC #### [facility] [address] [place] [address] Dr. Nicky Simmons Hematocrit (Bld) [Volume fraction] 41.7 % Normal 36.0-48.0 [facility] Comment on above: Performed By: #### C BC #### [facility] [address] [place] [address] Dr. Nicky Simmons Hemoglobin (Bld) [Mass/Vol] 13.5 g/dL Normal 12.0-16.0 [facility] Comment on above: Performed By: #### C BC #### [facility] [address] [place] [address] Dr. Nicky Simmons IG # 0.06 10e3/ul Critically high 0.00-0.03 [facility] Comment on above: Performed By: #### C BC #### [facility] [address] [place] [address] Dr. Nicky Simmons IG % 0.6 % Critically high 0.0-0.5 [facility] Comment on above: Performed By: #### C BC #### [facility] [address] [place] [address] Dr. Nicky Simmons LYMPH # 2.4 103/ul Normal 1.2-3.8 [facility] Comment on above: Performed By: #### C BC #### [facility] [address] [place] [address] Dr. Nicky Simmons Lymphocytes/100 WBC (Bld) 23.1 % Normal 20.5-60.0 [facility] Comment on above: Performed By: #### C BC #### [facility] [address] [place] [address] Dr. Nicky Simmons MANUAL DIFF REQ NO Normal [facility] Comment on above: Performed By: #### C BC #### [facility] [address] [place] [address] Dr. Nicky Simmons MCH (RBC) [Entitic mass] 29.2 pg Normal 26.7-34.0 [facility] Comment on above: Performed By: #### C BC #### [facility] [address] [place] [address] Dr. Nicky Simmons MCHC (RBC) [Mass/Vol] 32.4 g/dL Normal 29.9-35.2 [facility] Comment on above: Performed By: #### C BC #### [facility] [address] [place] [address] Dr. Nicky Simmons MCV (RBC) [Entitic vol] 90.1 fL Normal 81.0-99.0 [facility] Comment on above: Performed By: #### C BC #### [facility] [address] [place] [address] Dr. Nicky Simmons MONO # 0.6 103/ul Normal 0.3-0.8 [facility] Comment on above: Performed By: #### C BC #### [facility] [address] [place] [address] Dr. Nicky Simmons Monocytes/100 WBC (Bld) 5.6 % Normal 1.7-12.0 [facility] Comment on above: Performed By: #### C BC #### [facility] [address] [place] [address] Dr. Nicky Simmons NEUT # 7.2 103/ul Critically high 1.4-6.5 [facility] Comment on above: Performed By: #### C BC #### [facility] [address] [place] [address] Dr. Nicky Simmons Neutrophils/100 WBC (Bld) 68.1 % Normal 43.0-75.0 [facility] Comment on above: Performed By: #### C BC #### [facility] [address] [address] [address] Nicky Simmons Platelet mean volume (Bld) [Entitic vol] 9.6 fL Normal 9.5-13.5 [facility] Comment on above: Performed By: #### C BC #### [facility] [address] [address] [address] Nicky Simmons PLT 339 103/ul Normal 150-450 [facility] Comment on above: Performed By: #### C BC #### [facility] [address] [address] [address] Nicky Simmons RBC 4.63 106/ul Normal 4.20-5.40 [facility] Comment on above: Performed By: #### C BC #### [facility] [address] [address] [address] Nicky Simmons WBC 10.6 103/ul Normal 4.0-11.0 [facility] Comment on above: Performed By: #### C BC #### [facility] [address] [address] [address] Nicky Simmons PREG HCG QUALon 04-16-2022 , QUAL Negative Normal NEGATIVE [facility] Comment on above: Performed By: #### P REG ####[facility] [address] [id number][address] Nicky Simmons Covid-19 PCR (CVDTBH)on SARS-CoV-2 (COVID-19) RNA GOKUL+probe Ql (Unsp spec) Not detected Normal NOT DETECTED [facility] Comment on above: Result Comment: This test is not yet approved or cleared by the [place] FDA. When there are no FDA-approved or cleared tests available, and other criteria are met, FDA can make tests available under an emergency access mechanism called an Emergency Use Authorization (EUA). The EUA for this test is supported by the [place] of Health and Human Service's (HHS's) declaration [...] with SARS-CoV-2. Performed By: #### C VDTB ####[facility] [address] [address]Dr. Nicky Simmons CBC AUTO DIFFon 03-23-2022 BASO # 0.0 103/ul Normal 0.0-0.1 [facility] Comment on above: Performed By: #### I NFLUAB #### [facility] [address] [place] [address] Dr. Nicky Simmons Basophils/100 WBC (Bld) 0.4 % Normal 0.2-2.0 [facility] Comment on above: Performed By: #### I NFLUAB #### [facility] [address] [place] [address] Dr. Nicky Simmons EO # 0.4 103/ul Normal 0.0-0.7 [facility] Comment on above: Performed By: #### I NFLUAB #### [facility] [address] [place] [address] Dr. Nicky Simmons Eosinophils/100 WBC (Bld) 3.3 % Normal 0.9-7.0 [facility] Comment on above: Performed By: #### I NFLUAB #### [facility] [address] [place] [address] Dr. Nicky Simmons Erythrocyte distribution width (RBC) [Ratio] 12.9 % Normal 11.0-15.0 [facility] Comment on above: Performed By: #### I NFLUAB #### [facility] [address] [place] [address] Dr. Nicky Simmons Hematocrit (Bld) [Volume fraction] 41.7 % Normal 36.0-48.0 [facility] Comment on above: Performed By: #### I NFLUAB #### [facility] [address] [place] [address] Dr. Nicky Simmons Hemoglobin (Bld) [Mass/Vol] 13.7 g/dL Normal 12.0-16.0 [facility] Comment on above: Performed By: #### I NFLUAB #### [facility] [address] [place] [address] Dr. Nicky Simmons IG # 0.04 10e3/ul Critically high 0.00-0.03 [facility] Comment on above: Performed By: #### I NFLUAB #### [facility] [address] [place] [address] Dr. Nicky Simmons IG % 0.4 % Normal 0.0-0.5 [facility] Comment on above: Performed By: #### I NFLUAB #### [facility] [address] [place] [address] Dr. Nicky Simmons LYMPH # 2.5 103/ul Normal 1.2-3.8 [facility] Comment on above: Performed By: #### I NFLUAB #### [facility] [address] [place] [address] Dr. Nicky Simmons Lymphocytes/100 WBC (Bld) 22.3 % Normal 20.5-60.0 [facility] Comment on above: Performed By: #### I NFLUAB #### [facility] [address] [place] [address] Dr. Nicky Simmons MANUAL DIFF REQ NO Normal [facility] Comment on above: Performed By: #### I NFLUAB #### [facility] [address] [place] [address] Dr. Nicky Simmons MCH (RBC) [Entitic mass] 29.3 pg Normal 26.7-34.0 [facility] Comment on above: Performed By: #### I NFLUAB #### [facility] [address] [place] [address] Dr. Nicky Simmons MCHC (RBC) [Mass/Vol] 32.9 g/dL Normal 29.9-35.2 [facility] Comment on above: Performed By: #### I NFLUAB #### [facility] [address] [place] [address] Dr. Nicky Simmons MCV (RBC) [Entitic vol] 89.1 fL Normal 81.0-99.0 [facility] Comment on above: Performed By: #### I NFLUAB #### [facility] [address] [address] [address] Nicky Simmons MONO # 0.6 103/ul Normal 0.3-0.8 [facility] Comment on above: Performed By: #### I NFLUAB #### [facility] [address] [address] [address] Nicky Simmons Monocytes/100 WBC (Bld) 5.4 % Normal 1.7-12.0 [facility] Comment on above: Performed By: #### I NFLUAB #### [facility] [address] [place] [address] Dr. Nicky Simmons NEUT # 7.6 103/ul Critically high 1.4-6.5 [facility] Comment on above: Performed By: #### I NFLUAB #### [facility] [address] [place] [address] Dr. Nicky Simmons Neutrophils/100 WBC (Bld) 68.2 % Normal 43.0-75.0 [facility] Comment on above: Performed By: #### I NFLUAB #### [facility] [address] [place] [address] Dr. Nicky Simmons Platelet mean volume (Bld) [Entitic vol] 9.2 fL Critically low 9.5-13.5 [facility] Comment on above: Performed By: #### I NFLUAB #### [facility] [address] [place] [address] Dr. Nicky Simmons PLT 387 103/ul Normal 150-450 [facility] Comment on above: Performed By: #### I NFLUAB #### [facility] [address] [place] [address] Dr. Nicky Simmons RBC 4.68 106/ul Normal 4.20-5.40 [facility] Comment on above: Performed By: #### I NFLUAB #### [facility] [address] [address] [address] Nicky Simmons WBC 11.1 103/ul Critically high 4.0-11.0 [facility] Comment on above: Performed By: #### I NFLUAB #### [facility] [address] [place] [address] Dr. Nicky Simmons CRPon 03-23-2022 CRP 1.8 mg/dL Critically high <=1.0 [facility] Comment on above: Performed By: #### I NFLUAB #### [facility] [address] [place] [address] Dr. Nicky Simmons PROF CHEM 8 (BAS METB)on Anion gap [Moles/Vol] 12.2 mmol/L Normal [facility] Comment on above: Performed By: #### I NFLUAB #### [facility] [address] [place] [address] Dr. Nicky Simmons Calcium [Mass/Vol] 8.8 mg/dL Normal 8.5-10.1 [facility] Comment on above: Performed By: #### I NFLUAB #### [facility] [address] [place] [address] Dr. Nicky Simmons Chloride [Moles/Vol] 107 mmol/L Normal 98-107 [facility] Comment on above: Performed By: #### I NFLUAB #### [facility] [address] [place] [address] Dr. Nicky Simmons CO2 [Moles/Vol] 23.8 mmol/L Normal 21.0-32.0 [facility] Comment on above: Performed By: #### I NFLUAB #### [facility] [address] [place] [address] Dr. Nicky Simmons Creatinine [Mass/Vol] 0.78 mg/dL Normal 0.55-1.02 [facility] Comment on above: Performed By: #### I NFLUAB #### [facility] [address] [place] [address] Dr. Nicky Simmons EGFR-AF CITIZEN OF [place] >60 Normal >=60 [facility] Comment on above: Performed By: #### I NFLUAB #### [facility] [address] [address] [address] Nicky Simmons EGFR-NON AF CITIZEN OF [place] >60 Normal >=60 [facility] Comment on above: Performed By: #### I NFLUAB #### [facility] [address] [address] [address] Nicky Simmons Glucose [Mass/Vol] 121 mg/dL Critically high 74-106 [facility] Comment on above: Performed By: #### I NFLUAB #### [facility] [address] [address] [address] Nicky Simmons Potassium [Moles/Vol] 4.0 mmol/L Normal 3.5-5.1 [facility] Comment on above: Performed By: #### I NFLUAB #### [facility] [address] [address] [address] Nicky Simmons Sodium [Moles/Vol] 139 mmol/L Normal 136-145 [facility] Comment on above: Performed By: #### I NFLUAB #### [facility] [address] [address] [address] Nicky Simmons Urea nitrogen [Mass/Vol] 11.0 mg/dL Normal 7.0-18.0 [facility] Comment on above: Performed By: #### I NFLUAB #### [facility] [address] [address] [address] Nicky Simmons Urea nitrogen/Creatinine [Mass ratio] 14.1 mg/mg Normal [facility] Comment on above: Performed By: #### I NFLUAB #### [facility] [address] [address] [address] Nicky Simmons SED RATE [facility] 2021 SED RATE 36 mm/hr Critically high <=20 [facility] Comment on above: Performed By: #### C BC #### [facility] [address] [address] [address] Nicky Simmons XR KNEE LT 4V [...] MARIAM SANCHEZ Date: 2022-02-27 22:00 Normal [facility] CBC AUTO DIFFon 02-23-2022 BASO # 0.1 103/ul Normal 0.0-0.1 [facility] Comment on above: Performed By: #### C BC #### [facility] [address] [address] [address] Nicky Simmons Basophils/100 WBC (Bld) 0.6 % Normal 0.2-2.0 [facility] Comment on above: Performed By: #### C BC #### [facility] [address] [place] [address] Dr. Nicky Simmons EO # 0.3 103/ul Normal 0.0-0.7 [facility] Comment on above: Performed By: #### C BC #### [facility] [address] [place] [address] Dr. Nicky Simmons Eosinophils/100 WBC (Bld) 2.5 % Normal 0.9-7.0 [facility] Comment on above: Performed By: #### C BC #### [facility] [address] [place] [address] Dr. Nicky Simmons Erythrocyte distribution width (RBC) [Ratio] 12.8 % Normal 11.0-15.0 [facility] Comment on above: Performed By: #### C BC #### [facility] [address] [place] [address] Dr. Nicky Simmons Hematocrit (Bld) [Volume fraction] 39.5 % Normal 36.0-48.0 [facility] Comment on above: Performed By: #### C BC #### [facility] [address] [place] [address] Dr. Nicky Simmons Hemoglobin (Bld) [Mass/Vol] 13.0 g/dL Normal 12.0-16.0 [facility] Comment on above: Performed By: #### C BC #### [facility] [address] [place] [address] Dr. Nicky Simmons IG # 0.04 10e3/ul Critically high 0.00-0.03 [facility] Comment on above: Performed By: #### C BC #### [facility] [address] [place] [address] Dr. Nicky Simmons IG % 0.3 % Normal 0.0-0.5 [facility] Comment on above: Performed By: #### C BC #### [facility] [address] [place] [address] Dr. Nicky Simmons LYMPH # 3.0 103/ul Normal 1.2-3.8 [facility] Comment on above: Performed By: #### C BC #### [facility] [address] [place] [address] Dr. Nicky Simmons Lymphocytes/100 WBC (Bld) 24.4 % Normal 20.5-60.0 [facility] Comment on above: Performed By: #### C BC #### [facility] [address] [place] [address] Dr. Nicky Simmons MANUAL DIFF REQ NO Normal [facility] Comment on above: Performed By: #### C BC #### [facility] [address] [place] [address] Dr. Nicky Simmons MCH (RBC) [Entitic mass] 29.4 pg Normal 26.7-34.0 [facility] Comment on above: Performed By: #### C BC #### [facility] [address] [place] [address] Dr. Nicky Simmons MCHC (RBC) [Mass/Vol] 32.9 g/dL Normal 29.9-35.2 [facility] Comment on above: Performed By: #### C BC #### [facility] [address] [place] [address] Dr. Nicky Simmons MCV (RBC) [Entitic vol] 89.4 fL Normal 81.0-99.0 [facility] Comment on above: Performed By: #### C BC #### [facility] [address] [address] [address] Nicky Simmons MONO # 0.7 103/ul Normal 0.3-0.8 [facility] Comment on above: Performed By: #### C BC #### [facility] [address] [place] [address] Dr. Nicky Simmons Monocytes/100 WBC (Bld) 6.0 % Normal 1.7-12.0 [facility] Comment on above: Performed By: #### C BC #### [facility] [address] [place] [address] Dr. Nicky Simmons NEUT # 8.0 103/ul Critically high 1.4-6.5 [facility] Comment on above: Performed By: #### C BC #### [facility] [address] [place] [address] Dr. Nicky Simmons Neutrophils/100 WBC (Bld) 66.2 % Normal 43.0-75.0 [facility] Comment on above: Performed By: #### C BC #### [facility] [address] [place] [address] Dr. Nicky Simmons Platelet mean volume (Bld) [Entitic vol] 9.1 fL Critically low 9.5-13.5 [facility] Comment on above: Performed By: #### C BC #### [facility] [address] [place] [address] Dr. Nicky Simmons PLT 367 103/ul Normal 150-450 [facility] Comment on above: Performed By: #### C BC #### [facility] [address] [place] [address] Dr. Nicky Simmons RBC 4.42 106/ul Normal 4.20-5.40 [facility] Comment on above: Performed By: #### C BC #### [facility] [address] [place] [address] Dr. Nicky Simmons WBC 12.1 103/ul Critically high 4.0-11.0 [facility] Comment on above: Performed By: #### C BC #### [facility] [address] [place] [address] Dr. Nicky Simmons ER URINE PROFILEon 2 Bilirubin Ql (U) Negative Normal NEGATIVE [facility] Comment on above: Performed By: #### I NFLUAB #### [facility] [address] [place] [address] Dr. Nicky Simmons Clarity (U) CLEAR Normal CLEAR [facility] Comment on above: Performed By: #### I NFLUAB #### [facility] [address] [place] [address] Dr. Nicky Simmons Color (U) RED Abnormal YELLOW [facility] Comment on above: Performed By: #### I NFLUAB #### [facility] [address] [place] [address] Dr. Nicky NORTON A micrscopic examination will be performed if indicated. Normal [facility] Comment on above: Performed By: #### I NFLUAB #### [facility] [address] [place] [address] Dr. Nicky Simmons Glucose Ql (U) Negative Normal NEGATIVE [facility] Comment on above: Performed By: #### I NFLUAB #### [facility] [address] [place] [address] Dr. Nicky Simmons Hemoglobin Ql (U) LARGE Abnormal NEGATIVE [facility] Comment on above: Performed By: #### I NFLUAB #### [facility] [address] [place] [address] Dr. Nicky Simmons Ketones Ql (U) Negative Normal NEGATIVE [facility] Comment on above: Performed By: #### I NFLUAB #### [facility] [facility] [address] [place] [address] Dr. Nicky Simmons LEUKOCYTES Negative Normal NEGATIVE [facility] Comment on above: Performed By: #### I NFLUAB #### [facility] [address] [place] [address] Dr. Nicky Simmons Nitrite Ql (U) Negative Normal NEGATIVE [facility] Comment on above: Performed By: #### I NFLUAB #### [facility] [address] [place] [address] Dr. Nicky Simmons pH (U) 8.5 [pH] Normal 5-9 [facility] Comment on above: Performed By: #### I NFLUAB #### [facility] [address] [place] [address] Dr. Nicky Simmons SPEC GRAVITY 1.015 Normal 1.005-<=1.025 [facility] Comment on above: Performed By: #### I NFLUAB #### [facility] [address] [address] [address] Nicky Simmons UA PROTEIN TRACE Normal NEGATIVE/ TRACE [facility] Comment on above: Performed By: #### I NFLUAB #### [facility] [address] [place] [address] Dr. Nicky Simmons UR MICRO IND INDICATED Normal [facility] Comment on above: Performed By: #### I NFLUAB #### [facility] [address] [place] [address] Dr. Nicky Simmons Urobilinogen Qn (U) 0.2 {Yan'U}/dL Normal 0.2 - 1. 0 [facility] Comment on above: Performed By: #### I NFLUAB #### [facility] [address] [place] [address] Dr. Nicky Simmons SED RATE [facility] 2021 SED RATE 30 mm/hr Critically high <=20 [facility] Comment on above: Performed By: #### S EDR ####[facility] [id number] [address]Dr. Nicky Simmons URINE MICROSCOPIC ONLYon BACTERIA TRACE Abnormal NONE SEEN [facility] Comment on above: Performed By: #### I NFLUAB #### [facility] [address] [place] [address] Dr. Nicky Simmons Bacteria identified Cx Nom (U) NOT INDICATED Normal [facility] Comment on above: Performed By: #### I NFLUAB #### [facility] [address] [place] [address] Dr. Nicky Simmons CAST NONE SEEN Normal NONE SEEN [facility] Comment on above: Performed By: #### I NFLUAB #### [facility] [address] [place] [address] Dr. Nicky Simmons Crystals LM Nom (Urine sed) NONE SEEN Normal NONE SEEN [facility] Comment on above: Performed By: #### I NFLUAB #### [facility] [address] [place] [address] Dr. Nicky Simmons Epithelial cells LM Ql (Urine sed) RARE Normal NONE SEEN /RARE [facility] Comment on above: Performed By: #### I NFLUAB #### [facility] [address] [place] [address] Dr. Nicky Simmons MUCOUS NONE SEEN Normal NONE SEEN [facility] Comment on above: Performed By: #### I NFLUAB #### [facility] [address] [place] [address] Dr. Nicky Simmons RBC 75-100 Abnormal 0-2 [facility] Comment on above: Performed By: #### I NFLUAB #### [facility] [address] [place] [address] Dr. Nicky Simmons WBC 2-5 Abnormal NONE SEEN [facility] Comment on above: Performed By: #### I NFLUAB #### [facility] [address] [place] [address] Dr. Nicky Simmons US PELVISon 02-23-2022 US [...] SREE LYLE Date: 2022-02-23 13:53 Normal [facility] C-Reactive Proteinon 020 CRP [Mass/Vol] 2.8 mg/L Normal 0.0-5.0 [facility] Comment on above: Performed By: #### C DP, CRP, CP, TROPI, HCG, LD #### [facility] [address] [place] [address] Captain/Airline Pilot: Christopher Dorsey DO CRP [Mass/Vol] 2.8 mg/L 0 - 5 mg/L [place], [place] CBC Auto Differentialon - Basophils (Bld) [#/Vol] 0.00 10*3/uL [place] Basophils/100 WBC (Bld) 0 % 0 - 2 % [place] Differential Type NOT REPORTED [place] Eosinophils (Bld) [#/Vol] 0.20 10*3/uL [place] Eosinophils/100 WBC (Bld) 3 % 0 - 4 % [place] Erythrocyte distribution width (RBC) [Ratio] 13.5 % 11.5 - 14.9 % [place] Hematocrit (Bld) [Volume fraction] 39.3 % 36 - 46 % [place] Hemoglobin (Bld) [Mass/Vol] 12.9 g/dL 12 - 16 g/dL [place] Lymphocytes (Bld) [#/Vol] 2.00 10*3/uL [place] Lymphocytes/100 WBC (Bld) 29 % 24 - 44 % [place] MCH (RBC) [Entitic mass] 29.3 pg 26 - 34 pg [place] MCHC (RBC) [Mass/Vol] 32.7 g/dL 31 - 37 g/dL [place] MCV (RBC) [Entitic vol] 89.6 fL 80 - 100 fL [place] Monocytes (Bld) [#/Vol] 0.50 10*3/uL [place] Monocytes/100 WBC (Bld) 7 % 1 - 7 % [place] Platelet mean volume (Bld) [Entitic vol] 8.3 fL 6 - 12 fL [place] Platelets (Bld) [#/Vol] 238 10*3/uL [place] Platelets (Bld) [#/Vol] NOT REPORTED [place] RBC (Bld) [#/Vol] 4.39 10*6/uL 4 - 5.2 m/uL [place] RBC morphology finding Nom (Bld) NOT REPORTED [place] Segmented neutrophils/100 WBC (Bld) 61 % 36 - 66 % [place] Segs Absolute 4.20 [place] WBC (Bld) [#/Vol] NOT REPORTED per 100 WBC [place] WBC (Bld) [#/Vol] 7.0 10*3/uL [place] WBC Morphology NOT REPORTED [place] CBC with Diffon 03-01-2020 Abs. Basophil 0.00 k/uL Normal 0.0-0.2 [facility] Comment on above: Performed By: #### C DP, CRP, CP, TROPI, HCG, LD #### [facility] [address] [place] [address] Captain/Airline Pilot: Christopher Dorsey DO Abs.Neutrophil (Seg) 4.20 k/uL Normal 1.3-9.1 [facility] Comment on above: Performed By: #### C DP, CRP, CP, TROPI, HCG, LD #### [facility] [place] [address] Captain/Airline Pilot: Christopher Dorsey DO Basophils/100 WBC (Bld) 0 % Normal 0-2 [facility] Comment on above: Performed By: #### C DP, CRP, CP, TROPI, HCG, LD #### [facility] [address] [place] [address] Captain/Airline Pilot: Christopher Dorsey DO Eosinophils (Bld) [#/Vol] 0.20 10*3/uL Normal 0.0-0.4 [facility] Comment on above: Performed By: #### C DP, CRP, CP, TROPI, HCG, LD #### [facility] [address] [place] [address] Captain/Airline Pilot: Christopher Dorsey DO Eosinophils/100 WBC (Bld) 3 % Normal 0-4 [facility] Comment on above: Performed By: #### C DP, CRP, CP, TROPI, HCG, LD #### [facility] [address] [place] [address] Captain/Airline Pilot: Christopher Dorsey DO Erythrocyte distribution width (RBC) [Ratio] 13.5 % Normal 11.5-14.9 [facility] Comment on above: Performed By: #### C DP, CRP, CP, TROPI, HCG, LD #### [facility] [address] [place] [address] Captain/Airline Pilot: Christopher Dorsey DO Hematocrit (Bld) [Volume fraction] 39.3 % Normal 36-46 [facility] Comment on above: Performed By: #### C DP, CRP, CP, TROPI, HCG, LD #### [facility] [address] [place] [address] Captain/Airline Pilot: Christopher Dorsey DO Hemoglobin (Bld) [Mass/Vol] 12.9 g/dL Normal 12.0-16.0 [facility] Comment on above: Performed By: #### C DP, CRP, CP, TROPI, HCG, LD #### [facility] [address] [facility] [place] [address] Captain/Airline Pilot: Christopher Dorsey DO Lymphocytes (Bld) [#/Vol] 2.00 10*3/uL Normal 1.0-4.8 [facility] Comment on above: Performed By: #### C DP, CRP, CP, TROPI, HCG, LD #### [facility] [address] [place] [address] Captain/Airline Pilot: Christopher Dorsey DO Lymphocytes/100 WBC (Bld) 29 % Normal 24-44 [facility] Comment on above: Performed By: #### C DP, CRP, CP, TROPI, HCG, LD #### [facility] [address] [place] [address] Captain/Airline Pilot: Christopher Dorsey DO MCH (RBC) [Entitic mass] 29.3 pg Normal 26-34 [facility] Comment on above: Performed By: #### C DP, CRP, CP, TROPI, HCG, LD #### [facility] [address] [place] [address] Captain/Airline Pilot: Christopher Dorsey DO MCHC (RBC) [Mass/Vol] 32.7 g/dL Normal 31-37 [facility] Comment on above: Performed By: #### C DP, CRP, CP, TROPI, HCG, LD #### [facility] [place] [facility] [place] [address] Captain/Airline Pilot: Christopher Dorsey DO MCV (RBC) [Entitic vol] 89.6 fL Normal 80-100 [facility] Comment on above: Performed By: #### C DP, CRP, CP, TROPI, HCG, LD #### [facility] [place] [address] Captain/Airline Pilot: Christopher Dorsey DO Monocytes (Bld) [#/Vol] 0.50 10*3/uL Normal 0.1-1.3 [facility] Comment on above: Performed By: #### C DP, CRP, CP, TROPI, HCG, LD #### [facility] [address] [place] [address] Captain/Airline Pilot: Christopher Dorsey DO Monocytes/100 WBC (Bld) 7 % Normal 1-7 [facility] Comment on above: Performed By: #### C DP, CRP, CP, TROPI, HCG, LD #### [facility] [address] [place] [address] Captain/Airline Pilot: Christopher Dorsey DO Neutrophil (Seg) 61 % Normal 36-66 [facility] Comment on above: Performed By: #### C DP, CRP, CP, TROPI, HCG, LD #### [facility] [address] [place] [address] Captain/Airline Pilot: Christopher Dorsey DO Platelet mean volume (Bld) [Entitic vol] 8.3 fL Normal 6.0-12.0 [facility] Comment on above: Performed By: #### C DP, CRP, CP, TROPI, HCG, LD #### [facility] [address] [place] [address] Captain/Airline Pilot: Christopher Dorsey DO Platelets (Bld) [#/Vol] 238 10*3/uL Normal 150-450 [facility] Comment on above: Performed By: #### C DP, CRP, CP, TROPI, HCG, LD #### [facility] [place] [address] Captain/Airline Pilot: Christopher Dorsey DO RBC (Bld) [#/Vol] 4.39 10*6/uL Normal 4.0-5.2 [facility] Comment on above: Performed By: #### C DP, CRP, CP, TROPI, HCG, LD #### [facility] [place] [address] Captain/Airline Pilot: Christopher Dorsey DO WBC (Bld) [#/Vol] 7.0 10*3/uL Normal 3.5-11.0 [facility] Comment on above: Performed By: #### C DP, CRP, CP, TROPI, HCG, LD #### [facility] [place] [address] Captain/Airline Pilot: Christopher Dorsey DO Abs.Imm.Granulocyte NOT REPORTED Normal 0.00-0.30 [facility] Comment on above: Performed By: #### C DP, CRP, CP, TROPI, HCG, LD #### [facility] [address] [place] [address] Captain/Airline Pilot: Christopher Dorsey DO Auto Diff Performed NOT REPORTED Normal [facility] Comment on above: Performed By: #### C DP, CRP, CP, TROPI, HCG, LD #### [facility] [address] [place] [address] Captain/Airline Pilot: Christopher Dorsey DO Immature granulocytes (Bld) [#/Vol] NOT REPORTED Normal 0 [facility] Comment on above: Performed By: #### C DP, CRP, CP, TROPI, HCG, LD #### [facility] [address] [place] [address] Captain/Airline Pilot: Christopher Dorsey DO NRBC Automated NOT REPORTED Normal [facility] Comment on above: Performed By: #### C DP, CRP, CP, TROPI, HCG, LD #### [facility] [address] [place] [address] Captain/Airline Pilot: Christopher Dorsey DO Platelets (Bld) [#/Vol] NOT REPORTED Normal [facility] Comment on above: Performed By: #### C DP, CRP, CP, TROPI, HCG, LD #### [facility] [address] [place] [address] Captain/Airline Pilot: Christopher Dorsey DO RBC morphology finding Nom (Bld) NOT REPORTED Normal [facility] Comment on above: Performed By: #### C DP, CRP, CP, TROPI, HCG, LD #### [facility] [address] [place] [address] Captain/Airline Pilot: Christopher Dorsey DO WBC Morphology NOT REPORTED Normal [facility] Comment on above: Performed By: #### C DP, CRP, CP, TROPI, HCG, LD #### [facility] [address] [place] [facility] [place] [address] Captain/Airline Pilot: Christopher Dorsey DO Comp Metabolic Profon 2019 Bilirubin Ql (U) <0.15 Low 0.3-1.2 [facility] Comment on above: Performed By: #### C DP, CRP, CP, TROPI, HCG, LD #### [facility] [address] [place] [address] Captain/Airline Pilot: Christopher Dorsey DO (cont.) Normal [facility] Comment on above: Result Comment: Aver age GFR for 30-39 years old: 107 mL/min/1.73sq m Chronic Kidney Disease: <60 mL/min/1.73sq m Kidney failure: <15 mL/min/1.73sq m eGFR calculated using average adult body mass. Additional eGFR calculator available at: http://www.[employer].Blinpick/multiple_crcl_2012.htm Performed By: #### C DP, CRP, CP, TROPI, HCG, LD #### [facility] [address] [place] [address] Captain/Airline Pilot: Christopher Dorsey DO Albumin [Mass/Vol] 3.7 g/dL Normal 3.5-5.2 [facility] Comment on above: Performed By: #### C DP, CRP, CP, TROPI, HCG, LD #### [facility] [address] [place] [address] Captain/Airline Pilot: Christopher Dorsey DO Alkaline Phos 67 U/L Normal 35-104 [facility] Comment on above: Performed By: #### C DP, CRP, CP, TROPI, HCG, LD #### [facility] [address] [place] [address] Captain/Airline Pilot: Christopher Dorsey DO ALT [Catalytic activity/Vol] 12 U/L Normal 5-33 [facility] Comment on above: Performed By: #### C DP, CRP, CP, TROPI, HCG, LD #### [facility] [address] [place] [address] Captain/Airline Pilot: Christopher Dorsey DO Anion gap [Moles/Vol] 12 mmol/L Normal 9-17 [facility] Comment on above: Performed By: #### C DP, CRP, CP, TROPI, HCG, LD #### [facility] [address] [place] [address] Captain/Airline Pilot: Christopher Dorsey DO AST [Catalytic activity/Vol] 13 U/L Normal <32 [facility] Comment on above: Performed By: #### C DP, CRP, CP, TROPI, HCG, LD #### [facility] [address] [place] [address] Captain/Airline Pilot: Christopher Dorsey DO Calcium [Mass/Vol] 8.7 mg/dL Normal 8.6-10.4 [facility] Comment on above: Performed By: #### C DP, CRP, CP, TROPI, HCG, LD #### [facility] [address] [place] [address] Captain/Airline Pilot: Christopher Dorsey DO Chloride [Moles/Vol] 110 mmol/L High 98-107 [facility] Comment on above: Performed By: #### C DP, CRP, CP, TROPI, HCG, LD #### [facility] [address] [place] [address] Captain/Airline Pilot: Christopher Dorsey DO CO2 [Moles/Vol] 18 mmol/L Low 20-31 [facility] Comment on above: Performed By: #### C DP, CRP, CP, TROPI, HCG, LD #### [facility] [address] [place] [address] Captain/Airline Pilot: Christopher Dorsey DO Creatinine [Mass/Vol] 0.62 mg/dL Normal 0.50-0.90 [facility] Comment on above: Performed By: #### C DP, CRP, CP, TROPI, HCG, LD #### [facility] [address] [place] [address] Captain/Airline Pilot: Christopher Dorsey DO GFR, Amer >60 Normal >60 [facility] Comment on above: Performed By: #### C DP, CRP, CP, TROPI, HCG, LD #### [facility] [address] [place] [address] Captain/Airline Pilot: Christopher Dorsey DO GFR,non Amer >60 Normal >60 [facility] Comment on above: Performed By: #### C DP, CRP, CP, TROPI, HCG, LD #### [facility] [address] [facility] [place] [address] Captain/Airline Pilot: Christopher Dorsey DO Glucose [Mass/Vol] 84 mg/dL Normal 70-99 [facility] Comment on above: Performed By: #### C DP, CRP, CP, TROPI, HCG, LD #### [facility] [address] [place] [facility] [place] [address] Captain/Airline Pilot: Christopher Drosey DO Potassium [Moles/Vol] 3.9 mmol/L Normal 3.7-5.3 [facility] Comment on above: Performed By: #### C DP, CRP, CP, TROPI, HCG, LD #### [facility] [address] [place] [address] Captain/Airline Pilot: Christopher Dorsey DO Protein [Mass/Vol] 6.3 g/dL Low 6.4-8.3 [facility] Comment on above: Performed By: #### C DP, CRP, CP, TROPI, HCG, LD #### [facility] [address] [place] [address] Captain/Airline Pilot: Christopher Dorsey DO Sodium [Moles/Vol] 140 mmol/L Normal 135-144 [facility] Comment on above: Performed By: #### C DP, CRP, CP, TROPI, HCG, LD #### [facility] [address] [place] [address] Captain/Airline Pilot: Christopher Dorsey DO Urea nitrogen [Mass/Vol] 11 mg/dL Normal 6-20 [facility] Comment on above: Performed By: #### C DP, CRP, CP, TROPI, HCG, LD #### [facility] [address] [place] [address] Captain/Airline Pilot: Christopher Dorsey DO Albumin/Globulin [Mass ratio] NOT REPORTED Normal 1.0-2.5 [facility] Comment on above: Performed By: #### C DP, CRP, CP, TROPI, HCG, LD #### [facility] [address] [place] [address] Captain/Airline Pilot: Christopher Dorsey DO BUN/CRE Ratio NOT REPORTED Normal 9-20 [facility] Comment on above: Performed By: #### C DP, CRP, CP, TROPI, HCG, LD #### [facility] [address] [place] [address] Captain/Airline Pilot: Christopher Dorsey DO Staging: NOT REPORTED Normal [facility] Comment on above: Performed By: #### C DP, CRP, CP, TROPI, HCG, LD #### [facility] [address] [place] [address] Captain/Airline Pilot: Christopher Dorsey DO Comprehensive Metabolic [facility] 03-01-2020 Albumin [Mass/Vol] 3.7 g/dL 3.5 - 5.2 g/dL [place], [place] Albumin/Globulin [Mass ratio] NOT REPORTED [place] ALP [Catalytic activity/Vol] 67 U/L 35 - 104 U/L [place] ALT [Catalytic activity/Vol] 12 U/L 5 - 33 U/L [place] Anion gap [Moles/Vol] 12 mmol/L 9 - 17 mmol/L [place] AST [Catalytic activity/Vol] 13 U/L <32 [place] Bilirubin Ql (U) <0.15 Low 0.3 - 1.2 mg/dL [place], [place] Bun/Cre Ratio NOT REPORTED [place], [place] Calcium [Mass/Vol] 8.7 mg/dL 8.6 - 10. 4 mg/dL [place] Chloride [Moles/Vol] 110 mmol/L High 98 - 10 7 mmol/L [place] CO2 [Moles/Vol] 18 mmol/L Low 20 - 31 mmol/L [place] Creatinine [Mass/Vol] 0.62 mg/dL 0.5 - 0.9 mg/dL [place] GFR >60 >60 mL/min [place] GFR Non- >60 >60 mL/min [place] GFR/1.73 sq M predicted among non-blacks MDRD (S/P/Bld) [Vol rate/Area] NOT REPORTED [place] GFR/1.73 sq M predicted among non-blacks MDRD (S/P/Bld) [Vol rate/Area] [place] Comment on above: Average GFR for 30-3 9 years old: 107 mL/min/1.73sq m Chronic Kidney Disease: <60 mL/min/1.73sq m Kidney failure: <15 mL/min/1.73sq m eGFR calculated using average adult body mass. Additional eGFR calculator available at: http://www.[employer].Blinpick/multiple_crcl_2012.htm Glucose [Mass/Vol] 84 mg/dL 70 - 99 mg/dL [place] Interpretation and review of laboratory results Abnormal [place] Potassium [Moles/Vol] 3.9 mmol/L 3.7 - 5.3 mmol/L [place] Protein [Mass/Vol] 6.3 g/dL Low 6.4 - 8.3 g/dL [place] Sodium [Moles/Vol] 140 mmol/L 135 - 144 mmol/L [place], [place] Urea nitrogen [Mass/Vol] 11 mg/dL 6 - 20 mg/dL [place] HCG Screen, Bloodon 03-01-20 20 HCG Qn Negative Normal NEG [facility] Comment on above: Result Comment: Spec imens [...] DP, CRP, CP, TROPI, HCG, LD #### [facility] [address] [place] [address] Captain/Airline Pilot: Christopher Dorsey, hCG Qual Negative NEGATIVE [place], [place] Comment on above: Specimens with hCG [...] Interpretation and review of laboratory results Abnormal [place], [place] LD 101 U/L Low 135 - 214 U/L [place] Lactate Dehydrogenaseon 02-04 LDH [Catalytic activity/Vol] 101 U/L Low 135-214 [facility] Comment on above: Performed By: #### C DP, CRP, CP, TROPI, HCG, LD #### [facility] [address] [place] [address] Captain/Airline Pilot: Christopher Dorsey DO Otheron 03-01-2020 Immature granulocytes (Bld) [#/Vol] NOT REPORTED [place] Troponinon 03-01-2020 Troponin I.cardiac [Mass/Vol] ng/mL Normal 0-14 [facility] Comment on above: Result Comment: High Sensitivity Troponin values cannot be compared with other Troponin methodologies. Patients with high levels of Biotin oral intake (i.e >5mg/day) may have falsely decreased Troponin levels. Samples collected within 8 hours of biotin intake may require additional information for diagnosis. Performed By: #### T DAVIDI #### [facility] [address] [place] [address] Captain/Airline Pilot: Christopher Dorsey DO Troponin I.cardiac [Mass/Vol] NOT REPORTED Normal <0.03 [facility] Comment on above: Performed By: #### T ROPI #### [facility] [address] [place] [address] Captain/Airline Pilot: Christopher Dorsey DO Troponin I.cardiac [Mass/Vol] ng/mL Normal 0-14 [facility] Comment on above: Result Comment: High Sensitivity Troponin values cannot be compared with other Troponin methodologies. Patients with high levels of Biotin oral intake (i.e >5mg/day) may have falsely decreased Troponin levels. Samples collected within 8 hours of biotin intake may require additional information for diagnosis. Performed By: #### C DP, CRP, CP, TROPI, HCG, LD #### [facility] [address] [place] [address] Captain/Airline Pilot: Christopher Dorsey DO Troponin I.cardiac [Mass/Vol] NOT REPORTED [place] Troponin T.cardiac [Mass/Vol] NOT REPORTED <0.03 ng/mL [place] Troponin, High Sensitivity <6 0 - 14 ng/L [place] Comment on above: High Sensitivity Troponin values cannot be compared with other Troponin methodologies. Patients with high levels of Biotin oral intake (i.e >5mg/day) may have falsely decreased Troponin levels. Samples collected within 8 hours of biotin intake may require additional information for diagnosis. Troponin I.cardiac [Mass/Vol] NOT REPORTED Normal [facility] Comment on above: Performed By: #### C DP, CRP, CP, TROPI, HCG, LD #### [facility] [address] [place] [address] Captain/Airline Pilot: Christopher Dorsey DO Troponin I.cardiac [Mass/Vol] NOT REPORTED [place] Troponin T.cardiac [Mass/Vol] NOT REPORTED <0.03 ng/mL [place] Troponin, High Sensitivity <6 0 - 14 ng/L [place] Comment on above: High Sensitivity Troponin values cannot be compared with other Troponin methodologies. Patients with high levels of Biotin oral intake (i.e >5mg/day) may have falsely decreased Troponin levels. Samples collected within 8 hours of biotin intake may require additional information for diagnosis. XR CHEST PORTABLEon 03-01-20 20 XR CHEST PORTABLE EXAMINATION: ONE XRAY VIEW [...] Wilfredo Andrade MD 03/01/20 Final result Normal [facility] No acute cardiopulmonary process. [place], [place], [facility] Incoming Radiant Results From [employer] [facility] - 03/01/2020 10:19 AM EDT EXAMINATION: ONE [...] osseous abnormality. IMPRESSION: No acute cardiopulmonary process. [facility] [facility] ID EXAMINATION: ONE XRA Y VIEW OF THE [...] unremarkable. There is no acute osseous abnormality. [facility] ID Vital Signs Date Time Vital Sign Value Performing Clinician Rivas riojas 03-01-2024 09:42-0400 Diastolic blood pressure 78 mm[Hg] OMKAR Hill Work Phone: [facility] 03-01-2024 09:42-0400 Heart rate 88 /min OMKAR Hill Work Phone: [facility] 03-01-2024 09:42-0400 Respiratory rate 20 /min [employer] GRADER AND MARKERVerónica Hill Work Phone: [facility] 03-01-2024 09:42-0400 SaO2% (BldA) [Mass fraction] 97 % [employer] GRADER AND MARKERVerónica Hill Work Phone: [facility] 03-01-2024 09:42-0400 Systolic blood pressure 117 mm[Hg] OMKAR Hill Work Phone: [facility] 03-01-2024 09:41-0400 Body height 162.56 cm OMKAR Hill Work Phone: [facility] 03-01-2024 09:41-0400 Body weight 95.25 kg [employer] GRAD[employer] MARKERVerónica Hill Work Phone: [facility] 02-22-2024 13:17-0400 Body height 162.56 cm [facility] 02-22-2024 13:17-0400 Body mass index (BMI) [Ratio] 36.6 kg/m2 [facility] 02-22-2024 13:17-0400 Body weight 96.78 kg [facility] 02-22-2024 13:17-0400 Diastolic blood pressure 78 mm[Hg] [facility] 02-22-2024 13:17-0400 Heart rate 71 /min [facility] 02-22-2024 13:17-0400 Respiratory rate 18 /min [facility] 02-22-2024 13:17-0400 SaO2% (BldA) [Mass fraction] 98 % [facility] 02-22-2024 13:17-0400 Systolic blood pressure 116 mm[Hg] [facility] 03-01-2020 12:15-0400 BP Diastolic 57 mm[Hg] [place] 03-01-2020 12:15-0400 BP Systolic 98 mm[Hg] [facility] [place] 03-01-2020 12:15-0400 Pulse (Heart Rate) 61 /min Princess [place] 03-01-2020 12:15-0400 Pulse Oximetry 100 % [facility] [place] 03-01-2020 12:15-0400 Respiratory Rate 14 /min [facility] [place] 03-01-2020 09:00-0400 BMI (Body Mass Index) 31.76 kg/m2 Princess [place] 03-01-2020 09:00-0400 Body Temperature 97.9 [degF] [facility] city[facility]orena [place] 03-01-2020 09:00-0400 Body weight 83.92 kg [facility] city[facility] [place] 03-01-2020 09:00-0400 Height 162.6 cm [place], [place] Encounters Encounter Date Encounter Type Care Provider Facility Start: 04-10-2024 End: 04-10-2024 ambulatory SALONI PIPER Not Available Start: 03-14-2024 End: 03-22-2024 Pre-admission assessment SALONI PIPER [facility] Start: 03-14-2024 End: 03-14-2024 ambulatory SALONI PIPER Not Available Start: 03-01-2024 End: 03-01-2024 Patient encounter procedure [employer] Emmie Liz Work Phone: [facility] Work Phone: Start: 03-01-2024 End: 03-01-2024 ambulatory OMKAR Olea Liz Work Phone: [facility] Work Phone: Start: 02-22-2024 End: 02-22-2024 ambulatory [facility] Work Phone: Start: 02-22-2024 End: 02-22-2024 Patient encounter procedure [facility] Work Phone: Start: 01-18-2024 End: 01-18-2024 ambulatory SALONI PIPER Not Available Start: 12-29-2023 End: 12-29-2023 ambulatory LOUIE BING Not Available Start: 01-19-2023 [facility] Facility:H1 Start: 01-11-2023 End: 01-11-2023 ambulatory [facility] Facility:H1 Start: 12-29-2022 ambulatory Jimmie Crawford [facility] Start: 12-18-2022 End: 12-18-2022 ambulatory [facility] Facility:H1 Start: 11-12-2022 End: 11-13-2022 ambulatory [facility] Facility:H1 Start: 11-02-2022 End: 11-02-2022 ambulatory [facility] Facility:H1 Start: 10-22-2022 End: 10-22-2022 ambulatory [facility] Facility:H1 Start: 09-06-2022 End: 09-06-2022 ambulatory GLENN JIN Facility:H1 Start: 08-05-2022 End: 08-05-2022 ambulatory Mukund Rodriguez Other [facility] Other Start: 08-05-2022 Telephone encounter Mukund Rodriguez [facility] Start: 06-28-2022 End: 06-28-2022 ambulatory NON STAFF [facility] Work Phone: Start: 06-28-2022 End: 06-28-2022 Patient encounter procedure MD Mukund Rodriguez Work Phone: [facility] Start: 06-18-2022 End: 06-18-2022 ambulatory Christopher Fosterack Other [facility] Other Start: 06-18-2022 Telephone encounter Christopher Thanh [facility] Start: 05-17-2022 End: 05-17-2022 ambulatory [facility] Facility:H1 Start: 05-05-2022 End: 05-06-2022 ambulatory MUKUND RODRIGUEZ Facility:H1 Start: 05-04-2022 End: 05-04-2022 ambulatory Radha Arciniega Other [facility] Other Start: 05-04-2022 Office outpatient vi sit 15 minutes Radha Arciniega [facility] Start: 04-26-2022 End: 04-26-2022 ambulatory Mukund Rodriguez Other [facility] Other Start: 04-26-2022 Office outpatient vi sit 15 minutes Mukund Rodriguez [facility] Start: 04-20-2022 End: 04-20-2022 Patient encounter procedure MD Mukund Rodriguez Work Phone: [facility] [address] Start: 04-16-2022 End: 04-16-2022 ambulatory [facility] Facility:H1 Start: 04-15-2022 Encounter for preprocedural laboratory examination DR CHARLES MARRERO . [facility] Start: 04-13-2022 End: 04-14-2022 Encounter for preprocedural laboratory examination [facility] Facility:H1 Start: 04-13-2022 End: 04-14-2022 ambulatory [facility] Facility:H1 Start: 04-12-2022 End: 04-12-2022 ambulatory Mukund Olexa Other [facility] Other Start: 04-12-2022 Telephone encounter Mukund Rodriguez [facility] Start: 03-23-2022 End: 03-23-2022 [facility] Facility:H1 Start: 03-19-2022 [facility] Facility:H1 Start: 03-08-2022 End: 03-08-2022 [facility] Facility:H1 Start: 03-01-2022 End: 03-01-2022 ambulatory Mukund Rodriguez Other [facility] Other Start: 03-01-2022 Office outpatient ne w 45 minutes Mukund Rodriguez [facility] Start: 02-27-2022 End: 02-28-2022 [facility] Facility:H1 Start: 02-23-2022 End: 02-23-2022 [facility] Facility:H1 Start: 03-01-2020 End: 03-01-2020 Emergency department patient visit [facility] Start: 03-01-2020 End: 03-01-2020 Emergency department patient visit Princess Hoyt Work Phone: [facility] ED Comment on above: Bronchitis (Primary Dx) Procedures Date Procedure Procedure Detail Performing Clinician Start: 03-01-2024 XR pre/post mri xray AP SHANNAN Hill Work Phone: Start: 03-01-2024 MRI of cervical spin e with contrast OMKAR Hill Work Phone: Start: 03-01-2024 MRI of thoracic spin e with contrast OMKAR Hill Work Phone: Start: 04-20-2022 MRI of left knee MD Coppola Work Phone: Start: 03-01-2020 Assay of troponin quantitative PRINCESS HOYT Start: 03-01-2020 Radiologic exam ches t single view PRINCESS HOYT Start: 03-01-2020 Assay of troponin quantitative Princess Hoyt Work Phone: Start: 03-01-2020 Blood count complete auto&auto difrntl wbc PRINCESS HOYT Start: 03-01-2020 C-reactive protein PONCHO HOYT Start: 03-01-2020 Comprehensive metabo lic panel [...] Hoyt Work Phone: Start: 03-01-2020 C-reactive protein Poncho toledo Chanel Work Phone: Start: 03-01-2020 Comprehensive metabo lic panel Princess Hoyt Work Phone: Start: 03-01-2020 Gonadotropin chorion ic qualitative Princess Hoyt Work Phone: Start: 03-01-2020 Lactate dehydrogenase ldh Princess Hoyt Work Phone: Plan of Treatment Date Care Activity Detail Author Start: 05-06-2020 Influenza vaccination Flu vacc ine (Season Ended) [place], [place] Start: 2005 Screening for malign ant neoplasm of cervix Cervical cancer screen [place], [place] Start: 2003 DTaP/Tdap/Td vaccine (1 - Tdap) DTaP/Tdap/Td vaccine (1 - Tdap) [place] Start: 1999 HIV screening HIV screen [place], [place] Start: 1990 Pneumococcal 0-64 ye ars Vaccine (1 of 1 - PPSV23) Pneumococcal 0-64 years Vaccine (1 of 1 - PPSV23) [place], [place] Start: 1985 Varicella vaccine (1 of 2 - 2-dose childhood series) Varicella vaccine (1 of 2 - 2-dose childhood series) [place] EKG 12 Lead EKG 12 Lead ECG STAT 03/01/2020 9:20 AM EDT [place] Payers Date Payer Category Payer Medicaid [facility] [place] [place] [employer] xxxxxxxxxxxx 2020-Present [phone] [address] [address] [place] [address] xxxxxxxxxxxx [id number] 1984 Unknown [id number] 2.16.840.1.297851.3.579.2. 176 1984 Unknown [id number] 2.16.840.1.132094.3.579.2. 593 1984 Unknown [id number] 2.16.840.1.720130.3.579.2. 593 1984 Unknown [id number] 2.16.840.1.953409.3.579.2. 593 1984 Unknown [id number] 2.16.840.1.853265.3.579.2. 593 1984 Unknown [id number] 2.16.840.1.407850.3.579.2. 593 1984 Unknown [id number] 2.16.840.1.667813.3.579.2. 593 1984 Unknown [id number] 2.16.840.1.859277.3.579.2. 593 1984 Unknown [id number] 2.16.840.1.279234.3.579.2. 593 1984 Unknown [id number] 2.16.840.1.682046.3.579.2. 593 1984 Unknown [id number] 2.16.840.1.918955.3.579.2. 593 1984 Unknown [id number] 2.16.840.1.153891.3.579.2. 593 1984 Unknown [id number] 2.16.840.1.935649.3.579.2. 593 1984 Unknown [id number] 2.16.840.1.112002.3.579.2. 593 1984 Unknown [id number] 2.16.840.1.519120.3.579.2. 593 1984 Unknown [id number] 2.16.840.1.801289.3.579.2. 593 1984 Unknown [id number] 2.16.840.1.536485.3.579.2. 593 1984 Unknown [id number] 2.16.840.1.046687.3.579.2. 593 1984 Unknown [id number] 2.16.840.1.455664.3.579.2. 1259 1984 Unknown [id number] 2.16.840.1.631952.3.579.2. 1259 1984 Unknown [id number] 2.16.840.1.998928.3.579.2. 1259 1984 Unknown [id number] 2.16.840.1.557919.3.579.2. 1259 1959 Medicaid [id number] 1959 Self-pay 1959 Unknown [id number] 2.16.840.1.797428.19 1959 Unknown [id number] 1959 Unknown [id number] Unknown [id number] 2.16840.1.969986.19 Unknown [id number] 2.16.840.1.183610.19 Unknown [id number] 2.16840.1.919853.3.579.2. 531 Worker's Compensation [employer] [facility] [id number] Worker's Compensation [employer] [id number] Social History Date Type Detail Facility Start: 03-01-2020 Tobacco smoking stat us [facility] Current every day smoker SHANIKA Whittaker History of tobacco use Cigarette Smoker M SHANIKA Stover Start: 03-01-2020 Alcohol intake Ex-drinker (finding) SHANIKA Whittaker Sex Assigned At Not on file SHANIKA Whittaker Exposure to SARS-CoV -2 (event) Unable to assess SHANIKA Whittaker Sex Assigned At [facility] Start: 1985 Sex Assigned At Female F [facility] Start: 02-22-2024 Tobacco smoking stat [facility] Smoker (finding) [facility] Tobacco smoking status No Smokin g Status Entered [facility] Clinical Notes 03-01-2022 to 06-18-2022 Note Date & Type Note Facility 06-18-2022 Evaluation note Encounter Date Diagnosis Assessment Notes Jun, Dyspepsia (ICD-10 - R10.13) [facility] Other 08-30-2022 Evaluation note* Encounter Date Diagnosis Assessment Notes Treatment Notes Treatment Clinical Notes Apr, Sprain of other ligament of left knee, initial encounter (ICD-10 - S83.8X2A) [facility], patient approved for cortisone injections today. Risks and benefits discussed in detail with patient. Patient voiced understanding and agreed to proceed with treatment plan. We performed a 1/1cc marcaine / kenalog cortisone injection into the knee joint under sterile technique. Patient tolerated the injection well without adverse reaction. Patient to continue off work at this time. [facility] Other 08-22-2022 Evaluation note* Encounter Date Diagnosis Assessment Notes Treatment Notes Treatment Clinical Notes Apr, Sprain of other ligament of left knee, initial encounter (ICD-10 - S83.8X2A) MRI reviewed with patient as no surgical injuries. Advised based on exam and MRI, may have subluxed her patella at the time of the injury. Progress weight bearing as tolerated. Instructed on progression of motion and strengthening exercises. We will order formal physical therapy through [facility], as well as cortisone injection to decrease pain/inflammation. Patient to continue off work at this time. [facility] Other 08-12-2022 NoteOPERATIVE NOTE OPERATION DATE: 04/16/2022 PROCEDURE: Melina endometrial ablation with diagnostic laparoscopy. PREOPERATIVE DIAGNOSIS: Menorrhagia, dyspareunia. POSTOPERATIVE DIAGNOSIS: Menorrhagia, dyspareunia. ANESTHESIA: General. SURGEON: Charles Marrero D.O. LABEL REMOVER: ANDIE Jason URINE OUTPUT: Yellow and clear. [...] taken to Recovery Room in stable condition. [id number] Evaluation note* Encounter Date Diagnosis Assessment Notes Treatment Notes Treatment Clinical Notes Apr, Sprain of other ligament of left knee, initial encounter (ICD-10 - S83.8X2A) [facility] Other 06-27-2022 Evaluation note* Encounter Date Diagnosis Assessment Notes Treatment Notes Treatment Clinical Notes Feb, Sprain of other ligament of [...] MRI. Patient is to be off work [facility] Other chief complaint+Reason for visit Narrative* Chief Complaint Self-Ramon Reason for Visit Dietary surveillance and counseling Obesity, Class II, BMI 35-39.9 PCOS (polycystic ovarian syndrome) [facility] Work Phone: chief complaint+Reason for visit Narrative* Chief Complaint Self-Ramon r20.2 r29.2 Reason for Visit Dietary surveillance and counseling Obesity, Class II, BMI 35-39.9 PCOS (polycystic ovarian syndrome) [facility] Work Phone: Evaluation + Plan note No data available for this section [facility] assessment information available [facility] Work Phone: Evaluation noteNo [facility] Other Evaluation note* Diagnosis Onset Date Resolution Status Dietary surveillance and counseling acute Obesity, Class II, BMI 35-39.9 acute PCOS (polycystic ovarian syndrome) acute [facility] Work Phone: History general Narrative - Reported* Type Description Date Medical History endometriosis Surgical History c-sections x2 Surgical History apendectomy Surgical History hernia removal Hospitalization History see above [facility] Other Hospital Discharge instructions No data available for this section [facility] No data available for this section [facility] Summary Purpose Family History No Family History Records Found Relationship Condition Age at Onset Recorded Date/T corrie Not Specified Multiple sclerosis Unknown Cerebrovascular accident (CVA) Unknown Obesity Unknown Diabetes mellitus Unknown father Chronic obstructive pulmonary disease Unk nown Hypertension Unknown Heart disease Unknown sister Obesity Unknown Bipolar disorder Unknown Relationship Condition Age at Onset Recorded Date/T corrie mother Multiple sclerosis Unknown Cerebrovascular accident (CVA) Unknown Obesity Unknown Diabetes mellitus Unknown father Chronic obstructive pulmonary disease Unk nown Hypertension Unknown Heart disease Unknown sister Obesity Unknown Bipolar disorder Unknown Advance Directives No Advanced Directives Records FoundDocuments on File Type Date Recorded 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 * Bronchitis (Swedish) documented in this encounter Assessments Diagnosis Bronchitis Bronchitis, not specified as acute or chronic Chief Complaint and Reason for Visit Chief Complaint s83.8x2a Dyspepsia Additional Source Comments INFORMATION SOURCE (unrecogn ized section and content) DATE CREATED AUTHOR 03/27/2020 [facility] DATE CREATED AUTHOR AUTHOR'S ORGANIZ ATION 12/31/2022 [facility] DATE CREATED AUTHOR AUTHOR'S ORGANIZ ATION 01/20/2023 [facility] DATE CREATED AUTHOR AUTHOR'S ORGANIZ ATION 03/11/2024 [facility] DATE CREATED AUTHOR AUTHOR'S ORGANIZ ATION 04/12/2024 [facility] EPIC Reason for Visit (unrecogniz ed section and [...] Dates NON STAFF Primary Care Provider Active Team Status: Active Member Role Status Dates Emmie Hill APRN Primary Care Provider Active Team Status: Inactive Member Role Status Dates Leo Bernardo DO Attending Provider Active St art: February 22, 2024 End: February 22, 2024 Emmie Hill APRN Primary Care Provider Active Start: February 22, 2024 End: February 22, 2024 Team Status: Inactive Member Role Status Dates Saloni Piper PA-C Attending Provider Active Sta rt: March 01, 2024 End: March 01, 2024 Emmie Hill APRN Primary Care Provider Active Start: March 01, 2024 End: March 01, 2024 Goals (unrecognized section and content) Goals may [...] BE BASED ON THE PRIMARY CLINICAL RECORDS. [facility]. provides no warranty or guarantee of the accuracy or completeness of information in this document.
--- NOTE | 2024-06-30 07:48 | ED_ITS ---
HPI - Abdominal Pain General Chief Complaint: Abdominal Pain Stated Complaint: ABDOMINAL PAIN, NAUSEA Time Seen by Provider: 06/30/24 07:33 Source: patient Mode of arrival: walk-in History of Present Illness HPI narrative: 38-year-old female presented to the emergency department for abdominal pain and vomiting. The pain is in the upper abdomen and she has had it for few days and she has been vomiting. She saw some blood in her emesis. She reports that she has a history of gastritis was hospitalized a year ago but she walked out. No fever and the pain is severe and continuous. Related Data Home Medications ?Medication ?Instructions ?Recorded ?Confirmed albuterol sulfate 2.5 mg/3 mL 2.5 mg inhalation Q6H 11/07/23 11/07/23 (0.083 %) solution for nebulization budesonide-formoterol HFA 160 1 puff inhalation Q12H 11/07/23 11/07/23 mcg-4.5 mcg/actuation aerosol inhaler (Symbicort) cariprazine 1.5 mg capsule 1.5 mg PO Q24H 11/07/23 11/07/23 (Vraylar) lamotrigine 25 mg tablet 25 mg PO DAILY 11/07/23 11/07/23 sertraline 50 mg tablet 50 mg PO Q24H 11/07/23 11/07/23 Previous Rx's ?Medication ?Instructions ?Recorded [id number]-[id number] 10 ml PO Q6H PRN cold symptoms 11/09/23 2 mg-30 mg-10 mg/5 mL oral syrup #200 mL (Bromfed DM) doxycycline hyclate 100 mg tablet 100 mg PO BID 10 days #20 tabs 11/09/23 ondansetron 4 mg disintegrating 4 mg PO Q6H PRN nausea and 11/09/23 tablet vomiting #12 tabs dicyclomine 10 mg capsule 10 mg PO QID PRN abdominal pain 06/30/24 #20 caps ondansetron 4 mg disintegrating 4 mg PO Q6H PRN nausea and 06/30/24 tablet vomiting #20 tabs Allergies Allergy/AdvReac Type Severity Reaction Status Date / Time fentanyl Allergy hallucinati Verified 11/07/23 06:00 on Review of Systems ROS Narrative A ten point review of systems is negative except as noted above. PFSH PFS Medical History (Updated 06/30/24 @ 09:50 by Barry Moyer MD) History of blood transfusion ?Z92.89 - Personal history of other medical treatment (ICD-10) Anemia ?D64.9 - Anemia, unspecified (ICD-10) Deep vein thrombosis ?I82.409 - Acute embolism and thrombosis of unspecified deep veins of unspecified lower extremity (ICD-10) Insomnia ?G47.00 - Insomnia, unspecified (ICD-10) Panic attacks ?F41.0 - Panic disorder [episodic paroxysmal anxiety] (ICD-10) Anxiety ?F41.9 - Anxiety disorder, unspecified (ICD-10) COVID-19 ?U07.1 - COVID-19 (ICD-10) Sleep apnea ?G47.30 - Sleep apnea, unspecified (ICD-10) Pneumonia ?J18.9 - Pneumonia, unspecified organism (ICD-10) Bronchitis ?J40 - Bronchitis, not specified as acute or chronic (ICD-10) Asthma ?J45.909 - Unspecified asthma, uncomplicated (ICD-10) Seizures ?R56.9 - Unspecified convulsions (ICD-10) Migraine ?G43.909 - Migraine, unspecified, not intractable, without status migrainosus (ICD-10) Kidney stones ?N20.0 - Calculus of kidney (ICD-10) Heartburn ?R12 - Heartburn (ICD-10) GERD (gastroesophageal reflux disease) ?K21.9 - Gastro-esophageal reflux disease without esophagitis (ICD-10) Bradycardia associated with anesthesia Abnormal uterine bleeding ?N93.9 - Abnormal uterine and vaginal bleeding, unspecified (ICD-10) Pelvic pain ?R10.2 - Pelvic and perineal pain (ICD-10) Menorrhagia ?N92.0 - Excessive and frequent menstruation with regular cycle (ICD-10) Dysmenorrhea ?N94.6 - Dysmenorrhea, unspecified (ICD-10) Delayed recovery from anesthesia Surgical History (Updated 02/09/23 @ 12:49 by Sherita Jean NP) H/O lithotripsy ?Z98.890 - Other specified postprocedural states (ICD-10) History of endometrial ablation ?Z98.890 - Other specified postprocedural states (ICD-10) History of cholecystectomy ?Z90.49 - Acquired absence of other specified parts of digestive tract (ICD- 10) History of bilateral salpingectomy ?Z90.79 - Acquired absence of other genital organ(s) (ICD-10) History of section ?Z98.891 - History of uterine scar from previous surgery (ICD-10) History of appendectomy ?Z90.49 - Acquired absence of other specified parts of digestive tract (ICD- 10) History of dilation and curettage ?Z98.890 - Other specified postprocedural states (ICD-10) Family History (Updated 02/09/23 @ 12:44 by Sherita Jean NP) Other Family history of COPD (chronic obstructive pulmonary disease) Family history of DVT Family history of breast cancer Family history of heart disease Family history of hypertension Family history of myocardial infarction Family history of ovarian cancer Family history of stroke Family history of uterine cancer Social History Within the past year, how often did you have a drink containing alcohol: monthly or less Smoking status: Current every day smoker Non-prescribed substance use: cannabis (any form) Previous occupational history: [employer] Highest level of school completed/degree received: high school graduate Little interest or pleasure in doing things: not at all Feeling down, depressed, or hopeless: not at all Gender Identity: female Exam Narrative Exam Narrative: Nurses note and vital signs reviewed and patient is not hypoxic. General: The patient appears in no apparent distress. Patient appears uncomfortable. Skin: Warm, dry, no pallor noted. There is no rash noted. Head: Normocephalic, atraumatic, EOMI. PERRL Ears, Nose, Mouth, and Throat: oral mucosa is moist. Nares patent. Cardiovascular: Regular Rate and Rhythm Respiratory: Patient is in no distress, no accessory muscle use, lungs are clear to auscultation, no wheezing, rales or rhonchi Back: non-tender GI: Tender across the upper abdomen. No tenderness across the lower abdomen. No distention or masses. Musculoskeletal: The patient has no evidence of calf tenderness, no pitting edema, symmetrical pulses noted bilaterally Neurological: A&O, normal speech Psychiatric: Cooperative Constitutional Vital Signs, click to edit/add: Last Vital Signs Temp 97.9 F 06/30/24 07:27 Pulse 76 06/30/24 07:27 Resp 16 06/30/24 07:27 BP 125/72 06/30/24 07:27 Pulse Ox 98 06/30/24 07:27 O2 Del Method Room Air 06/30/24 07:27 Course Vital Signs Vital signs: Vital Signs Temperature 97.9 F 06/30/24 07:27 Pulse Rate 76 06/30/24 07:27 Respiratory Rate 16 06/30/24 07:27 Blood Pressure 125/72 06/30/24 07:27 Pulse Oximetry 98 06/30/24 07:27 Oxygen Delivery Method Room Air 06/30/24 07:27 Temperature 97.9 F 06/30/24 07:27 Pulse Rate 76 06/30/24 07:27 Respiratory Rate 16 06/30/24 07:27 Blood Pressure 125/72 06/30/24 07:27 Pulse Oximetry 98 06/30/24 07:27 Oxygen Delivery Method Room Air 06/30/24 07:27 MDM - Abdominal Pain MDM Narrative Medical decision making narrative: Her workup including CAT scan and blood work is negative. She is feeling much improved now and is able to be discharged home. She is prescribed Zofran and Bentyl and will continue her prescription antacid at home. Treatment diagnosis and follow-up were discussed with the patient. The umbilical hernia is previo usly known to the patient. Differential Diagnosis Differential diagnosis: Likely abdominal pain, constipation, diverticulitis, gastroenteritis, pancreatitis and small bowel obstruction Lab Data Attestation: I reviewed the patient's lab results. Labs: Lab Results 06/30/24 Range/Units 07:35 WBC 9.5 (4.0-11.0) 10^3/uL RBC 4.47 (4.20-5.40) 10^6/uL Hgb 13.4 (12.0-16.0) g/dL Hct 40.2 (36.0-48.0) % MCV 89.9 (81.0-99.0) fL MCH 30.0 (26.7-34.0) pg MCHC 33.3 (29.9-35.2) g/dL RDW 12.3 (11.0-15.0) % Plt Count 307 (150-450) 10^3/uL MPV 9.3 L (9.5-13.5) fL Neut % (Auto) 66.1 (43.0-75.0) % Lymph % (Auto) 24.8 (20.5-60.0) % Haskell % (Auto) 5.3 (1.7-12.0) % Eos % (Auto) 3.1 (0.9-7.0) % Baso % (Auto) 0.4 (0.2-2.0) % Neut # (Auto) 6.3 (1.4-6.5) 10^3/uL Lymph # (Auto) 2.3 (1.2-3.8) 10^3/uL Haskell # (Auto) 0.5 (0.3-0.8) 10^3/uL Eos # (Auto) 0.3 (0.0-0.7) 10^3/uL Baso # (Auto) 0.0 (0.0-0.1) 10^3/uL Abs Immat Gran (auto) 0.03 (0.00-0.03) 10^3/uL Imm/Tot Granulo (auto) 0.3 (0.0-0.5) % Sodium 143 (136-145) mmol/L Potassium 4.1 (3.5-5.1) mmol/L Chloride 108 H (98-107) mmol/L Carbon Dioxide 23.2 (21.0-32.0) mmol/L Anion Gap 15.9 BUN 16.0 (7.0-18.0) mg/dL Creatinine 0.70 (0.55-1.02) mg/dL Est GFR ( Amer) >60 (>=60 mL/min/1.73m^2) Est GFR (Non-Af Amer) >60 (>=60 mL/min/1.73m^2) BUN/Creatinine Ratio 22.9 Glucose 101 (74-106) mg/dL Calcium 8.9 (8.5-10.1) mg/dL Total Bilirubin 0.3 (0.2-1.0) mg/dL Direct Bilirubin 0.1 (0.0-0.2) mg/dL AST 17 (15-37) U/L ALT 36 (14-59) U/L Alkaline Phosphatase 97 (46-116) U/L Total Protein 6.7 (6.4-8.2) g/dL Albumin 3.0 L (3.4-5.0) g/dL Globulin 3.7 g/dL Albumin/Globulin Ratio 0.8 Amylase 39 (25-115) U/L Lipase 26.0 (16.0-77.0) U/L Imaging Data CT scan - abdomen: Radiologist's impression: ITS Impressions Abdomen/Pelvis CT 06/30/24 08:34 IMPRESSION: 1. New supraumbilical fat filled small hernia without strangulation or appreciable acute inflammatory changes. 2. Stable fat filled umbilical hernia without strangulation. 3. Unremarkable intraperitoneal contents with specific attention to the pancreas. Electronically authenticated by: LOUIE LIRIANO Date: 06/30/2024 09:25 Discharge Plan Discharge Chief Complaint: Abdominal Pain Clinical Impression: Abdominal pain Patient Disposition: Home, Self-Care Time of Disposition Decision: 09:50 Condition: Good Mode of Transportation: Private Vehicle Prescriptions / Home Meds: New dicyclomine 10 mg capsule 10 mg PO QID PRN (Reason: abdominal pain) Qty: 20 0RF ondansetron 4 mg tablet,disintegrating 4 mg PO Q6H PRN (Reason: nausea and vomiting) Qty: 20 0RF No Action albuterol sulfate 2.5 mg /3 mL (0.083 %) solution for nebulization 2.5 mg inhalation Q6H lamotrigine 25 mg tablet 25 mg PO DAILY sertraline 50 mg tablet 50 mg PO Q24H Vraylar 1.5 mg capsule 1.5 mg PO Q24H budesonide-formoterol [Symbicort] 160-4.5 mcg/actuation HFA aerosol inhaler 1 puff INHALATION Q12H [id number]-nwfmptkkr-[id number] [Bromfed DM] 2-30-10 mg/5 mL syrup 10 ml PO Q6H PRN (Reason: cold symptoms) Qty: 200 0RF ondansetron 4 mg tablet,disintegrating 4 mg PO Q6H PRN (Reason: nausea and vomiting) Qty: 12 0RF doxycycline hyclate 100 mg tablet 100 mg PO BID 10 Days Qty: 20 0RF Print Language: Moroccan Instructions: Abdominal Pain (ED) Referrals: Emmie Hill, FRENCH BINDER [Primary Care Provider] - 1 week
[2024-06-30 07:57] LABS: Basophils Percent Auto 0.4 % (0.2-2.0); Eosinophils Absolute Auto 0.3 10^3/uL (0.0-0.7); Eosinophils Percent Auto 3.1 % (0.9-7.0); Hematocrit 40.2 % (36.0-48.0); Hemoglobin 13.4 g/dL (12.0-16.0); Immature Granulocytes Abs Auto 0.03 10^3/uL (0.00-0.03); Immature Granulocytes Pct Auto 0.3 % (0.0-0.5); Lymphocytes Absolute Auto 2.3 10^3/uL (1.2-3.8); Lymphocytes Percent Auto 24.8 % (20.5-60.0); Mean Corpuscular HGB Conc 33.3 g/dL (29.9-35.2); Mean Corpuscular Volume 89.9 fL (81.0-99.0); Mean Platelet Volume 9.3 fL (9.5-13.5); Monocytes Absolute Auto 0.5 10^3/uL (0.3-0.8); Monocytes Percent Auto 5.3 % (1.7-12.0); Neutrophils Absolute Auto 6.3 10^3/uL (1.4-6.5); Neutrophils Percent Auto 66.1 % (43.0-75.0); Platelet Count 307 10^3/uL (150-450); Red Blood Count 4.47 10^6/uL (4.20-5.40); Red Cell Distribution Width 12.3 % (11.0-15.0); White Blood Count 9.5 10^3/uL (4.0-11.0)
[2024-06-30] MEDS: 0.9 % SODIUM CHLORIDE 1,000 ML 1000 ML IV (08:02)
[2024-06-30] MEDS: ONDANSETRON PF 4 MG/2 ML VIAL IV (08:03)
[2024-06-30] MEDS: PANTOPRAZOLE SODIUM 40 MG VIAL IV (08:03)
[2024-06-30 08:18] LABS: Alanine Aminotransferase 36 U/L (14-59); Albumin Globulin Ratio 0.8; Alkaline Phosphatase 97 U/L (46-116); Amylase 39 U/L (25-115); Anion Gap 15.9; Aspartate Amino Transferase 17 U/L (15-37); BUN Creatinine Ratio 22.9; Bilirubin Direct 0.1 mg/dL (0.0-0.2); Bilirubin Total 0.3 mg/dL (0.2-1.0); Calcium 8.9 mg/dL (8.5-10.1); Carbon Dioxide 23.2 mmol/L (21.0-32.0); Chloride 108 mmol/L (98-107); Estimated GFR (African America >60 (>=60 mL/min/1.73m^2); Estimated GFR (Non-African Ame >60 (>=60 mL/min/1.73m^2); Globulin 3.7 g/dL; Glucose 101 mg/dL (74-106); Potassium 4.1 mmol/L (3.5-5.1); Sodium 143 mmol/L (136-145); Total Protein 6.7 g/dL (6.4-8.2)
--- NOTE | 2024-06-30 08:34 | CT_ITS ---
[address] [address] Patient Name: COY SAMUEL MRN: [facility]:[id number] date: 1985 Sex: F Assigned Patient Location: ER Current Patient Location: Accession/Order Number: [id number] Exam Date: 06/30/2024 08:57 Report Date: 06/30/2024 09:25 At the request of: GLENN JIN Procedure: CT abdomen pelvis w con EXAMINATION: CT abdomen pelvis w con HISTORY: Upper abdominal pain, 4 days , nausea and vomiting COMPARISON: CT abdomen pelvis 02/26/2023 TECHNIQUE: Axial, Coronal, and Sagittal images were obtained without and/or with IV contrast as indicated by examination type. Dose reduction techniques were achieved by using automated exposure control and/or adjustment of mA and/or kV according to patient size and/or use of iterative reconstruction technique. FINDINGS: LUNG BASES: No visible pulmonary or pleural disease. LIVER: No enlargement, atrophy, suspicious density, or significant focal lesion. BILIARY: Cholecystectomy. PANCREAS: No lesion, fluid collection, or abnormal duct dilatation. SPLEEN: No enlargement or focal lesion. ADRENALS: No mass or enlargement. KIDNEYS: No mass, obstruction, or calcification. BOWEL/MESENTERY: No visible mass, obstruction, or bowel wall thickening. AORTA/VASCULAR: No aneurysm or dissection. RETROPERITONEUM: No mass or adenopathy. LYMPH NODES: No adenopathy. URINARY BLADDER: No visible focal wall thickening, lesion, or calculus. PELVIC ORGANS: Hysterectomy. ABDOMINAL WALL: Fat filled umbilical hernia 4.1 cm in maximum diameter without strangulation. Supraumbilical fat filled 3.2 cm hernia without strangulation; 0.9 cm wide neck. BONES: No bony lesion or fracture. OTHER: Negative. CT/CT abdomen pelvis w con IMPRESSION: 1. New supraumbilical fat filled small hernia without strangulation or appreciable acute inflammatory changes. 2. Stable fat filled umbilical hernia without strangulation. 3. Unremarkable intraperitoneal contents with specific attention to the pancreas. Electronically authenticated by: LOUIE LIRIANO Date: 06/30/2024 09:25
== END 2024-06-30 10:05 | disposition home or self-care (01) ==
PROVIDERS: Emergency Provider Emergency Medicine; PCP Nurse Practitioner
DX: R10.9 Unspecified abdominal pain (principal); F17.200 Nicotine dependence, unspecified, uncomplicated
CPT/HCPCS: 36415; 74177; 80048; 80076; 82150; 83690; 85025; 96361; 96374; 96375; 99284; J2405; Q9967

== ENCOUNTER 2024-07-30 14:30 | Outpatient (OUT) | payer OTHER, SELFPAY ==
--- OUTSIDE RECORDS SUMMARY | 2024-07-30 14:54 | XMS_ITS | CCD ---
Author Organization [facility] Care Team Providers Care Research Chemical Engineer Name Role Phone PRINCESS HOYT Attending Unavailable Unavailable Primary Care Provider Mukund Corona Unavailable Radha Arciniega Unavailable Christopher Mendez Unavailable MD Mukund Rodriguez Attending Provider NON STAFF Primary Care Provider UnavailMD Christopher Jacobson Attending Provider [phone] Jimmie Crawford DDS Attending Unavailable [facility] Unava ilable NEY, DR MARYURI Parker Admitting Unavailabl e NEY, DR MARYURI Parker Consulting Unavailabl e NEY, DR MARYURI Parker Attending Unavailabl e [facility] Unava ilable MICHAELA ., KRISHNA Attending Unavailable MICHAELA ., KRISHNA Admitting Unavailable NICOL ., PERCY BROWN Consulting Unavailabl e MICHAELA ., KRISHNA Consulting Unavailable [facility] Unava ilable LOW ESCALANTE Attending Unavailable LOW ESCALANTE Consulting Unavailable LOW ESCALANTE Admitting Unavailable [facility] Unava ilable LOW ESCALANTE Attending Unavailable LOW ESCALANTE Consulting Unavailable ZOLTAN ESCALANTEYL Admitting Unavailable [facility] Unava ilable AYLIN ., DR EVERETT Admitting Unavailable AYLIN ., DR EVERETT Attending Unavailable AYLIN ., DR EVERETT Consulting Unavailable [facility] Consulting Unava ilable [facility] Care Unava ilable AYLIN ., DR EVERETT Admitting Unavailable AYLIN ., DR EVERETT Attending Unavailable [facility] Unava ilable HAY ., DR FRIED Consulting Unavailable LOW ESCALANTE Admitting Unavailable LOW ESCALANTE Attending Unavailable [facility] Unava ilable DIAB ., RENA Attending Unavailable JUDY CONKLIN Consulting Unavailable DIAB ., RENA Admitting Unavailable DIAB ., RENA Consulting Unavailable [facility] Unava ilable GUILLE, DR RANJAN Joyce Admitting Unavailable GUILLE, DR RANJAN Joyce Attending Unavailable GUILLE, DR RANJAN Joyce Consulting Unavailable MARIAM SANCHEZ Consulting Unavailable [facility] Unava ilable AYLIN ., DR EVERETT Attending Unavailable AYLIN ., DR EVERETT Admitting Unavailable [facility] Unava ilable AYLIN ., DR EVERETT Admitting Unavailable AYLIN ., DR EVERETT Attending Unavailable AYLIN ., DR EVERETT Consulting Unavailable AGUBOSIM, AMOS Consulting Unavailable DORKOSKIE TRACEY Consulting Unavailable [facility] Consulting Unava ilable GLENN JIN Attending Unavailable [facility] Unava ilable GLENN JIN Admitting Unavailable GIULIANO MANZO Consulting Unavailable GLENN JIN Consulting Unavailable BRYSONMUKUND ISLAS Consulting Unavailable POLICARO, ESTHER Consulting Unavailable [facility] Unava ilable AMBERLY, DR DARIEN Silvestre Consulting Unavailable NADERER, DR DARIEN Silvestre Attending Unavailable NADERER, DR DARIEN Silvestre Admitting Unavailable HAY ., DR FRIED Consulting Unavailable KARLEEPRINCESS Consulting Unavailable .MEGAN DUGAN Consulting Unavailable OLENUBIA, MUKUND Attending Unavailable OLEXA, MUKUND Admitting Unavailable [facility] Unava ilable [facility] Unava ilable NEY, DR MARYURI Parker Attending Unavailabl ashley BREWSTER, DR MARYURI Parker Admitting Unavailabl ashley BREWSTER, DR MARYURI Parker Consulting Unavailabl ashley LIRIANO, DR LOUIE Joyce Consulting Unavailable [facility] Unava ilable NEY, DR MARYURI Parker Attending Unavailabl e NEY, DR AMRYURI Parker Admitting Unavailabl ashley BREWSTER, DR MARYURI Parker Consulting Unavailjuan m LYLE, DR SREE Peña Consulting Unavailable [facility] Unava ilable LOW ESCALANTE Attending Unavailable NICOL .PERCY Consulting UnavailLOW De Santiago Admitting Unavailable SREE MCCLENDON Consulting Unavailable PATRICIA Piper Attending Provider [phone] O[place] Primary Care Provider Saloni Piper Admitting Unavailable Saloni Piper Attending Unavailable Liz, Emmie Primary Care Unavailable Judy SCHULTZ Primary Care Physician Charles Marrero DO Unavailable Saloni Barton Unavailable Louie Smart MD Unavailable [phone] LOUIE SMART Attending Unavailable SALONI PIPER Attending Unavailable SALONI PIPER Attending Unavailable SALONI PIPER Attending Unavailable LOUIE SMART Attending Unavailable SALONI PIPER Attending Unavailable Allergies Allergy Classification Reported Allergen(s) Allergy Type Date of Onset Reaction(s) Facility Opioid Agonists (1 source) [facility] 4 [facility] (8 sources) [facility] Allergy 4 [facility] (1 source) [facility] Drug Allergy [facility] Medications Current Medications Medication Drug Class(es) Dates Sig (Normalized) Sig (Original) Acetaminophen / oxyCODONE (2 sources) Opioid Agonist Percocet Active [id number] 200 actuat albuterol 0.09 mg/actuat metered dose inhaler (10 sources) beta2-Adrenergic Agonist Start: 02-22-2024 take 1 puff(s) by inhalation every four to six hours Albuterol Sulfate Active 2 PUFF INHALATION EVERY 4-6 HOURS February 22, 2024 12:00am albuterol (2.5 M G/3ML) 0.083% nebulizer solution Take 3 mL by nebulization every 6 (six) hours if needed for wheezing Active take 1 puff(s) by in halation every four hours for wheezing albuterol HFA 90 mcg/act inhaler Inhale 1 puff every 4 (four) hours if needed for wheezing Active Atogepant (Qulipta) 60 MG tablet (4 sources) Start: 04-10-2024 take 1 tablet by mouth once daily Atogepant (Qulipta) 60 MG tablet Indications: Migraine without aura and without status migrainosus, not intractable (CMS/HCC) Take 60 mg by mouth Daily 30 tablet 2 04/10/2024 Active azithromycin 250 mg oral tablet (1 source) Macrolide Antimicrobial Start: 03-01-2020 End: 03-11-2020 azithromycin (ZITHROMAX) 250 MG tablet Indications: Bronchitis Take 2 tablets (500 mg) on Day 1, followed by 1 tablet (250 mg) once daily on Days 2 through 5. 1 packet 0 03/01/2020 03/11/2020 Active 60 actuat budesonide 0.16 mg/actuat / formoterol fumarate 0.0045 mg/actuat metered dose inhaler (4 sources) Corticosteroid, beta2-Adrenergic Agonist Start: 11-01-2023 take 2 puff(s) by inhalation once daily Symbicort 160-4.5 MCG/ACT inhaler Inhale 2 puffs Daily 11/01/2023 Active cariprazine 1.5 mg oral capsule (6 sources) Atypical Antipsychotic Start: 12-20-2023 take 1 capsule by mouth once daily Vraylar 1.5 MG capsule Take 1 capsule by mouth Daily 12/20/2023 Active cyclobenzaprine hydrochloride 5 mg oral tablet (4 sources) Muscle Relaxant take 1 tablet by mouth every twenty-four hours Cyclobenzaprine HCl 5 MG 1 tablet at bedtime as needed Orally Once a day Active diazePAM 2 mg oral tablet (4 sources) Benzodiazepine Start: 01-09-2024 diazePAM (Valium) 2 MG tablet Indications: Claustrophobia (CMS/HCC) Take 30 minutes prior to MRI. Do not drive when taking this medication. 1 tablet 01/09/2024 Active famotidine 20 mg oral tablet (4 sources) Histamine-2 Receptor Antagonist take 1 tablet by mouth every twenty-four hours as needed for gastroesophageal reflux disease famotidine (Pepcid) 20 MG tablet Take 20 mg by mouth Daily as needed for heartburn 1 tablet Active hydrOXYzine pamoate 50 mg oral capsule (6 sources) Antihistamine Start: 02-22-2024 take 50 mg by mouth twice daily Hydroxyzine Pamoate Active 50 MG PO Twice daily February 22, 2024 12:00am lamoTRIgine 25 mg oral tablet (6 sources) Mood Stabilizer, Anti-epileptic Agent Start: 02-22-2024 take 50 mg by mouth once daily Lamotrigine Active 50 MG PO Daily February 22, 2024 12:00am Start: 12-23-2023 take 1 tablet by rosenda th in the morning lamoTRIgine (LaMICtal) 25 MG tablet Take 25 mg by mouth in the morning and 25 mg before bedtime. 12/23/2023 Active magnesium oxide 400 mg oral tablet (2 sources) Start: 07-25-2024 take 1 tablet by mouth at bedtime magnesium oxide (Mag-Ox) 400 mg tablet Indications: Migraine without aura and without status migrainosus, not intractable (CMS/HCC) Take 1 tablet (400 mg) by mouth at bedtime 30 tablet 2 07/25/2024 Active 24 hr metFORMIN hydrochloride 500 mg extended release oral tablet (2 sources) Biguanide Start: 02-22-2024 take 500 mg by mouth once daily Metformin Active 500 MG PO Daily February 22, 2024 12:00am Take with largest meal naproxen 250 mg oral tablet (4 sources) Nonsteroidal Anti-inflammatory Drug take 1 tablet by mouth every twelve hours Naproxen 250 MG 1 tablet with food or milk Orally Twice a day Active ondansetron 4 mg oral tablet (4 sources) Serotonin-3 Receptor Antagonist take 1 tablet by mouth once daily ondansetron (Zofran) 4 MG tablet Take 4 mg by mouth Daily 1 tablet Active OXcarbazepine 300 mg oral tablet (8 sources) Anti-epileptic Agent Start: 07-25-2024 take 0.5 tablet by mouth once daily in the morning, then take 2 tablets by mouth at bedtime OXcarbazepine (Trileptal) 300 MG tablet Indications: Migraine without aura and without status migrainosus, not intractable (CMS/HCC) , Paresthesia Take 1/2 -1 tab PO QAM and 2 tabs (600mg) PO at bedtime 90 tablet 2 07/25/2024 Active Start: 07-23-2024 End: 07-25-2024 take 2 tablets by mouth at bedtime OXcarbazepine (Trileptal) 300 MG tablet Indications: Migraine without aura and without status migrainosus, not intractable (CMS/HCC) , Paresthesia Take 2 tablets (600 mg) by mouth at bedtime 60 tablet 2 07/23/2024 07/25/2024 Discontinued (Reorder) Start: 04-10-2024 take 2 tablets by mo ut at bedtime OXcarbazepine (Trileptal) 300 MG tablet Indications: Migraine without aura and without status migrainosus, not intractable (CMS/HCC) , Paresthesia Take 2 tablets (600 mg) by mouth at bedtime 60 tablet 2 04/10/2024 Active Start: 02-22-2024 take 300 mg by mouth once sera y Oxcarbazepine Active 300 MG PO Daily February 22, 2024 12:00am predniSONE 10 mg oral tablet (1 source) Start: 03-01-2020 End: 03-11-2020 take 4 tablets by mouth once daily predniSONE (DELTASONE) 10 MG tablet Take 4 tablets by mouth once daily for 5 days 20 tablet 0 03/01/2020 03/11/2020 Active rizatriptan 10 mg oral tablet (4 sources) Serotonin-1b and Serotonin-1d Receptor Agonist Start: 03-14-2024 rizatriptan (Maxalt) 10 MG tablet Indications: Migraine without aura and without status migrainosus, not intractable (CMS/HCC) Take 1 tablet (10 mg) by mouth 1 (one) time if needed for migraine (may repeat x1) May repeat in 2 hours if unresolved. Do not exceed 30 mg in 24 hours. 9 tablet 2 03/14/2024 Active SUMAtriptan 50 mg oral tablet (2 sources) Serotonin-1b and Serotonin-1d Receptor Agonist Start: 02-22-2024 take 1 mg by mouth once Sumatriptan Succinate Active MG PO Once February 22, 2024 12:00am topiramate 100 mg oral tablet (1 source) topiramate (TOPAMAX) 100 MG tablet Take 150 mg by mouth 2 times daily 0 Active traMADol hydrochloride 50 mg oral tablet (2 sources) Opioid Agonist take 1 tablet by mouth every twenty-four hours traMADol HCl 50 MG 1 tablet as needed Orally Once a day Active traZODone hydrochloride 100 mg oral tablet (6 sources) Serotonin Reuptake Inhibitor Start: 02-22-2024 take 100 mg by mouth once daily at bedtime Trazodone Active 100 MG PO Daily at bedtime February 22, 2024 12:00am varenicline 0.5 mg oral tablet (2 sources) Partial Cholinergic Nicotinic Agonist Start: 02-22-2024 take 0.5 mg by mouth twice daily Varenicline Active 0.5 MG PO Twice daily February 22, 2024 12:00am vortioxetine 10 mg oral tablet (6 sources) Start: 02-22-2024 take 1 tablet by mouth once daily Vortioxetine (Trintellix) 10 mg tablet Active 10 MG PO Daily February 22, 2024 12:00am Start: 12-21-2023 take 1 tablet by rosenda th in the morning Trintellix 5 MG tablet Take 1 tablet by mouth in the morning. 12/21/2023 Active zolpidem tartrate 10 mg oral tablet [...] uncomplicated; Translations: [Asthma] Onset: 09-08-2022 02-22-2024 Chronic Blindness and vision defects (4 sources) Eye / vision finding; Translations: [Unspecified visual disturbance] 07-25-2024 Episodic Chronic obstructive pulmonary disease and bronchiectasis (1 source) Mucopurulent chronic bronchitis; Translations: [MUCOPURULENT CHRONIC BRONCHITIS] Onset: 05-19-2022 Chronic Fluid and electrolyte disorders (1 source) Volume depletion, unspecified; Translations: [VOLUME DEPLETION UNSPECIFIED] Onset: 12-21-2022 Episodic Genitourinary symptoms and ill-defined conditions (1 source) Unspecified urinary incontinence; Translations: [UNSPECIFIED URINARY INCONTINENCE] Onset: 04-19-2022 Chronic Headache; including migraine (6 sources) Migraine; Translations: [Migraine, unspecified, not intractable, without status migrainosus] Onset: 12-29-2023 12-29-2023 Chronic Immunizations and screening for infectious disease (1 source) Contact with and (suspected) exposure to other communicable diseases; Translations: [CONTACT W EXPS OTH COMMUNICABLE DZ] Onset: 03-03-2023 Episodic Intestinal infection (1 source) Viral intestinal [...] 10-22-2022 Episodic Other aftercare (1 source) 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; Translations: [OTH 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 CURRENT DRUG THERAPY] Onset: 12-21-2022 Episodic Other connective tissue disease (2 sources) Cramp; Translations: [Cramp and spasm] 07-25-2024 Episodic Other disorders of stomach and duodenum [...] [Paresthesia of skin] Onset: 03-01-2024 Episodic Other nervous system disorders (6 sources) Paresthesia; Translations: [Paresthesia of skin] Onset: 12-29-2023 12-29-2023 Episodic Other nervous system disorders (2 sources) Hyperreflexia; Translations: [Abnormal reflex] 07-25-2024 Episodic Other nutritional; endocrine; and metabolic disorders [...] conon 03-01-2024 MR cervical spine wo/w con [facility] [address] [place] [address] MRI Report Signed Patient: Lilly Beckham MR#: [id number] : 1985 Acct:[id number] Age/Sex: 38 / F ADM Date: 03/01/24 Loc: Room: Type: [facility] Attending Dr: Saloni Piper PA-C Copies to: [...] Ranjan Orourke M.D.03/01/2024 2:54 PM Dictation Location: [place] [address] Transcribed By: [facility] 03/01/24 1454 Dictated By: Ranjan Orourke II, MD 03/01/24 1448 Signed By: 03/01/24 1454 Normal [facility] MR thoracic spine wo/w yudi 03-01-2024 MR thoracic spine wo/w con [facility] [address] [place] [address] MRI Report Signed Patient: Lilly Beckham MR#: [id number] : 1985 Acct:[id number] Age/Sex: 38 / F ADM Date: 03/01/24 Loc: MR Room: Type: [facility] Attending Dr: Saloni Piper PA-C [...] Ranjan Orourke M.D.03/01/2024 3:19 PM Dictation Location: RADIO--12 Transcribed By: ACE 03/01/24 1519 Dictated By: Ranjan Orourke II, MD 03/01/241515 Signed By: 03/01/241518 Normal [facility] XR pre/post mri xrayon 03-01 XR pre/post mri xray [place] [address] XRay Report Signed Patient: Lilly Beckham MR#: [id number] : 1985 Acct:[id number] Age/Sex: 38 / F ADM Date: 03/01/24 Loc: Room: Type: [facility] Attending Dr: Saloni Piper PA-C Copies to: [...] Ranjan Orourke M.D.03/01/2024 3:31 PM Dictation Location: RADIO-PC-12 Transcribed By: ACE 03/01/24 1531 Dictated By: Ranjan Orourke II, MD 03/01/24 1529 Signed By: 03/01/24 1531 Normal [facility] AMYLASEon 01-19-2023 Amylase [Catalytic activity/Vol] 39 U/L Normal 25-115 [facility] Comment on above: Performed By: #### A MY, LIPA, CMP ####[facility] [address] [place] [address]Dr. Nicky Simmons CBC AUTO DIFFon 01-19-2023 BASO # 0.1 103/ul Normal 0.0-0.1 [facility] Comment on above: Performed By: #### C BC ####[facility] [address] [place], [place] [address]DrBella Simmons Basophils/100 WBC (Bld) 0.5 % Normal 0.2-2.0 [facility] Comment on above: Performed By: #### C BC ####[facility] F[address] [place], [place] [address]DrBella Simmons EO # 0.2 103/ul Normal 0.0-0.7 [facility] Comment on above: Performed By: #### C BC ####[facility] [address] [place], [place] [address]DrBella Simmons Eosinophils/100 WBC (Bld) 1.7 % Normal 0.9-7.0 [facility] Comment on above: Performed By: #### C BC ####[facility] [address] [place], [place] [address]DrBella Simmons Erythrocyte distribution width (RBC) [Ratio] 13.0 % Normal 11.0-15.0 [facility] Comment on above: Performed By: #### C BC ####[facility] Z[address] [place], [place] [address]DrBella Simmons Hematocrit (Bld) [Volume fraction] 39.9 % Normal 36.0-48.0 [facility] Comment on above: Performed By: #### C BC ####[facility] W[address] [place], [place] [address]Dr. Nicky Simmons Hemoglobin (Bld) [Mass/Vol] 13.2 g/dL Normal 12.0-16.0 [facility] Comment on above: Performed By: #### C BC ####[facility] [address] [place] [address]DrBella Simmons IG # 0.05 10e3/ul Critically high 0.00-0.03 [facility] Comment on above: Performed By: #### C BC ####[facility] [address] [place], [place] [address]Dr. Nicky Simmons IG % 0.5 % Normal 0.0-0.5 [facility] Comment on above: Performed By: #### C BC ####[facility] [address] [place], [place] [address]DrBella Simmons LYMPH # 3.1 103/ul Normal 1.2-3.8 [facility] Comment on above: Performed By: #### C BC ####[facility] [address] [place], [place] [address]DrBella Simmons Lymphocytes/100 WBC (Bld) 28.3 % Normal 20.5-60.0 [facility] Comment on above: Performed By: #### C BC ####[facility] [address] [place], [place] [address]DrBella Simmons MANUAL DIFF REQ NO Normal [facility] Comment on above: Performed By: #### C BC ####[facility] [address] [place], [place] [address]DrBella Simmons MCH (RBC) [Entitic mass] 28.7 pg Normal 26.7-34.0 [facility] Comment on above: Performed By: #### C BC ####[facility] [address] [place], [place] [address]DrBella Simmons MCHC (RBC) [Mass/Vol] 33.1 g/dL Normal 29.9-35.2 [facility] Comment on above: Performed By: #### C BC ####[facility] K[address] [place], [place] [address]Dr. Nicky Simmons MCV (RBC) [Entitic vol] 86.7 fL Normal 81.0-99.0 [facility] Comment on above: Performed By: #### C BC ####[facility] [address] [place] [address] Nicky Simmons MONO # 0.6 103/ul Normal 0.3-0.8 [facility] Comment on above: Performed By: #### C BC ####[facility] [address]sm[address] [place], [place] [address]DrBella Simmons Monocytes/100 WBC (Bld) 5.6 % Normal 1.7-12.0 [facility] Comment on above: Performed By: #### C BC ####[facility] [address] [place], [place] [address]DrBella Cardonauady Simmons NEUT # 7.0 103/ul Critically high 1.4-6.5 [facility] Comment on above: Performed By: #### C BC ####[facility] My[address] [place], [place] [address]DrBella Simmons Neutrophils/100 WBC (Bld) 63.4 % Normal 43.0-75.0 [facility] Comment on above: Performed By: #### C BC ####[facility] [address] [place], [place] [address]DrBella Simmons Platelet mean volume (Bld) [Entitic vol] 9.0 fL Critically low 9.5-13.5 [facility] Comment on above: Performed By: #### C BC ####[facility] [address] [place], [place] [address]DrBella Simmons PLT 358 103/ul Normal 150-450 [facility] Comment on above: Performed By: #### C BC ####[facility] [address] [place], [place] [address]DrBella Simmons RBC 4.60 106/ul Normal 4.20-5.40 [facility] Comment on above: Performed By: #### C BC ####[facility] [address] [place], [place] [address]DrBella Simmons WBC 11.0 103/ul Normal 4.0-11.0 [facility] Comment on above: Performed By: #### C BC ####[facility] [address] [place] [address]Dr. Nicky Simmons CT ABD/PELV W CONon 01-20-20 CT ABD/PELV W CON EXAMINATION: CT ABD/PELV [...] PRINCESS DESIR Date: 2023-01-19 13:26 Normal [facility] DRUG SCREEN RAPID (URINE)on 01-19-2023 AMP Negative Normal NEGATIVE [facility] Comment on above: Performed By: #### D RUGRPD ####[facility] [address] [place] [address]Dr. Dulceuday Simmons BAR Negative Normal NEGATIVE [facility] Comment on above: Performed By: #### D RUGRPD ####[facility] [address] [place] [id number]. Dulceuday Simmons BUP Negative Normal NEGATIVE [facility] Comment on above: Performed By: #### D RUGRPD ####[facility] [address] [place] [id number]. Nicky Troy BZO Negative Normal NEGATIVE [facility] Comment on above: Performed By: #### D RUGRPD ####[facility] [address] [place] [id number]. Nicky Simmons DON Negative Normal NEGATIVE [facility] Comment on above: Performed By: #### D RUGRPD ####[facility] [address] [place] [id number]. Nicky Simmons CUT-OFFS SEE BELOW Normal [facility] Comment on above: Result Comment: AMP (Amphetamine): 500ng/mL, BAR (Barbituates): 200 ng/mL, BZO (Benzodiazepines): 150 ng/mL, BUP (Buprenorphine): 10 ng/mL, DON (Cocaine): 150 ng/mL, mAMP (Methamphetamine): 500 ng/mL, MTD (Methadone): 200 ng/mL, OPI (Opiates): 100 ng/mL, OXY (Oxycodone): 100 ng/mL, PCP (Phencyclidine): 25 ng/mL, PPX (Propoxyphene): 300 ng/mL, THC (Cannabinoids): 50 ng/mL, TCA (Trycyclic Antidepressants): 300 ng/mL Performed By: #### D RUGRPD ####[facility] [address] [place], [place] [address]Dr. Nicky Simmons DRUG CUT HEADER DRUG CLASS TEST SYSTEM CUT-OFF CONCENTRATIONS ARE FOLLOWS: Normal [facility] Comment on above: Performed By: #### D RUGRPD ####[facility] [address] [place], [place] [address]Dr. Nicky Simmons mAMP Negative Normal NEGATIVE [facility] Comment on above: Performed By: #### D RUGRPD ####[facility] [address] [place], [place] [address]Dr. Nicky Simmons MTD Negative Normal NEGATIVE [facility] Comment on above: Performed By: #### D RUGRPD ####[facility] [address] [place], [place] [address]Dr. Nicky Simmons OPI Positive Abnormal NEGATIVE [facility] Comment on above: Performed By: #### D RUGRPD ####[facility] [address] [place], [place] [address]Dr. Nicky Simmons OXY Negative Normal NEGATIVE [facility] Comment on above: Performed By: #### D RUGRPD ####[facility] [address] [place] [address]Dr. Nicky Simmons PCP Negative Normal NEGATIVE [facility] Comment on above: Performed By: #### D RUGRPD ####[facility] [address] [place] [address]Dr. Nicky Simmons PPX Negative Normal NEGATIVE [facility] Comment on above: Performed By: #### D RUGRPD ####[facility] [address] [place] [address]Dr. Nicky Simmons TCA Negative Normal NEGATIVE [facility] Comment on above: Performed By: #### D RUGRPD ####[facility] [address] [place] [address]Dr. Nicky Simmons THC Positive Abnormal NEGATIVE [facility] Comment on above: Performed By: #### D RUGRPD ####[facility] [address] [address]Dr. Nicky Simmons ER URINE PROFILEon 3 Bilirubin Ql (U) Negative Normal NEGATIVE [facility] Comment on above: Performed By: #### C BC #### [facility] [address] [place] [address] Dr. Nicky Simmons Clarity (U) CLEAR Normal CLEAR [facility] Comment on above: Performed By: #### C BC #### [facility] [address] [address] [address] Nicky Simmons Color (U) LT. YELLOW Normal YELLOW [facility] Comment on above: Performed By: #### C BC #### [facility] [address] [address] [address] Nicky Simmons ERUAHMargaux A micrscopic examination will be performed if indicated. Normal [facility] Comment on above: Performed By: #### C BC #### [facility] [address] [place] [address] Dr. Nicky Simmons Glucose Ql (U) Negative Normal NEGATIVE [facility] Comment on above: Performed By: #### C BC #### [facility] [address] [place] [address] Dr. Nicky Simmons Hemoglobin Ql (U) Negative Normal NEGATIVE [facility] Comment on above: Performed By: #### C BC #### [facility] [address] [place] [address] Dr. Nicky Simmons Ketones Ql (U) Negative Normal NEGATIVE [facility] Comment on above: Performed By: #### C BC #### [facility] [address] [place] [address] Dr. Nicky Simmons LEUKOCYTES SMALL Abnormal NEGATIVE [facility] Comment on above: Performed By: #### C BC #### [facility] [address] [place] [address] Dr. Nicky Simmons Nitrite Ql (U) Negative Normal NEGATIVE [facility] Comment on above: Performed By: #### C BC #### [facility] [address] [place] [address] Dr. Nicky Simmons pH (U) 6.5 [pH] Normal 5-9 [facility] Comment on above: Performed By: #### C BC #### [facility] [address] [place] [address] Dr. Nicky Simmons SPEC GRAVITY <=1.005 Abnormal 1.005-<=1.025 [facility] Comment on above: Performed By: #### C BC #### [facility] [address] [place] [address] Dr. Nicky Simmons UA PROTEIN Negative Normal NEGATIVE/ TRACE [facility] Comment on above: Performed By: #### C BC #### [facility] [address] [place] [address] Dr. Nicky Simmons UR MICRO IND INDICATED Normal [facility] Comment on above: Performed By: #### C BC #### [facility] [address] [place] [address] Dr. Nicky Simmons Urobilinogen Qn (U) 0.2 {Yan'U}/dL Normal 0.2 - 1. 0 [facility] Comment on above: Performed By: #### C BC #### [facility] [address] [address] [address] Nicky Simmons LIPASEon 01-19-2023 Lipase [Catalytic activity/Vol] 46.0 U/L Critically low 73.0-393.0 [facility] Comment on above: Performed By: #### A MY, LIPA, CMP ####[facility] [address] [address]DrBella Simmosn PROF 14(COMP METB)on 023 Albumin [Mass/Vol] 3.1 g/dL Critically low 3.4-5.0 [facility] Comment on above: Performed By: #### A MY, LIPA, CMP ####[facility] [address] [address]DrBella Simmons Albumin/Globulin [Mass ratio] 0.8 {ratio} Normal [facility] Comment on above: Performed By: #### A MY, LIPA, CMP ####[facility] [address] [place], [place] [address]Dr. Nicky Simmons ALP [Catalytic activity/Vol] 102 U/L Normal 46-116 [facility] Comment on above: Performed By: #### A MY, LIPA, CMP ####[facility] [address] [place], [place] [address]DrBella Simmons ALT [Catalytic activity/Vol] 64 U/L Critically high 14-59 [facility] Comment on above: Performed By: #### A MY, LIPA, CMP ####[facility] [address] [address]Dr. Nicky Simmons Anion gap [Moles/Vol] 15.6 mmol/L Normal [facility] Comment on above: Performed By: #### A MY, LIPA, CMP ####[facility] [address] [address]Dr. Nicky Simmons AST [Catalytic activity/Vol] 28 U/L Normal 15-37 [facility] Comment on above: Performed By: #### A MY, LIPA, CMP ####[facility] [address] [address]DrBella Simmons Bilirubin [Mass/Vol] 0.4 mg/dL Normal 0.2-1.0 [facility] Comment on above: Performed By: #### A ROMÁN GLORIA, CMP ####[facility] [address] [address]Dr. Nicky Simmons Calcium [Mass/Vol] 8.9 mg/dL Normal 8.5-10.1 [facility] [place] Comment on above: Performed By: #### A ROMÁN GLORIA, CMP ####[facility] [address] [address]Dr. Nicky Simmons Chloride [Moles/Vol] 105 mmol/L Normal 98-107 [facility] Comment on above: Performed By: #### A ROMÁN GLORIA, CMP ####[facility] [address] [place], [place] [address]Dr. Nicky Simmons CO2 [Moles/Vol] 23.0 mmol/L Normal 21.0-32.0 [facility] Comment on above: Performed By: #### A ROMÁN GLORIA, CMP ####[facility] [address] [place], [place] [address]Dr. Nicky Simmons Creatinine [Mass/Vol] 0.71 mg/dL Normal 0.55-1.02 [facility] Comment on above: Performed By: #### A ROMÁN GLORIA, CMP ####[facility] [address] [place], [place] [address]Dr. Nicky Simmons EGFR-AF COSTA RICAN >60 Normal >=60 [facility] Comment on above: Performed By: #### A ROMÁN GLORIA, CMP ####[facility] [address] [place], [place] [address]Dr. Nicky Simmons EGFR-NON AF COSTA RICAN >60 Normal >=60 [facility] Comment on above: Performed By: #### A ROMÁN GLORIA, CMP ####[facility] [address] [place], [place] [address]Dr. Nicky Simmons Globulin (S) [Mass/Vol] 4.0 g/dL Normal [facility] Comment on above: Performed By: #### A FABRIZIO GLORIAA, CMP ####[facility] [address] [id number]. Nicky Simmons Glucose [Mass/Vol] 99 mg/dL Normal 74-106 [facility] Comment on above: Performed By: #### A FABRIZIO GLORIAA, CMP ####[facility] [address] [address]Dr. Nicky Simmons Potassium [Moles/Vol] 3.6 mmol/L Normal 3.5-5.1 [facility] Comment on above: Performed By: #### A JUANI LIPA, CMP ####[facility] [address] [address]Dr. Nicky Simmons Protein [Mass/Vol] 7.1 g/dL Normal 6.4-8.2 [facility] Comment on above: Performed By: #### A JUANI LIPA, CMP ####[facility] [address] [address]Dr. Nicky Simmons Sodium [Moles/Vol] 140 mmol/L Normal 136-145 [facility] Comment on above: Performed By: #### A ROMÁN GLORIA, CMP ####[facility] [address] [address]Dr. Nicky Simmons Urea nitrogen [Mass/Vol] 8.0 mg/dL Normal 7.0-18.0 [facility] Comment on above: Performed By: #### A JUANI LIPA, CMP ####[facility] [address] [address]Dr. Nicky Simmons Urea nitrogen/Creatinine [Mass ratio] 11.3 mg/mg Normal [facility] Comment on above: Performed By: #### A JUANI LIPA, CMP ####[facility] [address] [address]Dr. Nicky Simmons URINE MICROSCOPIC ONLYon BACTERIA TRACE Abnormal NONE SEEN [facility] Comment on above: Performed By: #### C BC #### [facility] [address] [address] [address] Nicky Simmons Bacteria identified Cx Nom (U) INDICATED Normal [facility] Comment on above: Performed By: #### C BC #### [facility] [address] [place] [address] Dr. Nicky Simmons CAST NONE SEEN Normal NONE SEEN [facility] Comment on above: Performed By: #### C BC #### [facility] [address] [place] [address] Dr. Nicky Simmons Crystals LM Nom (Urine sed) NONE SEEN Normal NONE SEEN [facility] Comment on above: Performed By: #### C BC #### [facility] [address] [place] [address] Dr. Nicky Simmons Epithelial cells LM Ql (Urine sed) FEW Abnormal NONE SEEN /RARE [facility] Comment on above: Performed By: #### C BC #### [facility] [address] [place] [address] Dr. Nicky Simmons MUCOUS NONE SEEN Normal NONE SEEN [facility] Comment on above: Performed By: #### C BC #### [facility] [address] [place] [address] Dr. Nicky Simmons RBC 0-2 Normal 0-2 [facility] Comment on above: Performed By: #### C BC #### [facility] [address] [place] [address] Dr. Nicky Simmons WBC 2-5 Abnormal NONE SEEN [facility] Comment on above: Performed By: #### C BC #### [facility] [address] [place] [address] Dr. Nicky Simmons XR CHEST 1 Von [...] SREE MCCLENDON Date: 2023-01-11 21:21 Normal [facility] CBC AUTO DIFFon 12-18-2022 BASO # 0.0 103/ul Normal 0.0-0.1 [facility] Comment on above: Performed By: #### C BC #### [facility] [address] [place] [address] Dr. Nicky Simmons Basophils/100 WBC (Bld) 0.3 % Normal 0.2-2.0 [facility] Comment on above: Performed By: #### C BC #### [facility] [address] [place] [address] Dr. Nicky Simmons EO # 0.2 103/ul Normal 0.0-0.7 [facility] Comment on above: Performed By: #### C BC #### [facility] [address] [place] [address] Dr. Nicky Simmons Eosinophils/100 WBC (Bld) 1.4 % Normal 0.9-7.0 [facility] Comment on above: Performed By: #### C BC #### [facility] [address] [place] [address] Dr. Nicky Simmons Erythrocyte distribution width (RBC) [Ratio] 13.0 % Normal 11.0-15.0 [facility] Comment on above: Performed By: #### C BC #### [facility] [address] [place] [address] Dr. Nicky Simmons Hematocrit (Bld) [Volume fraction] 40.3 % Normal 36.0-48.0 [facility] Comment on above: Performed By: #### C BC #### [facility] [address] [place] [address] Dr. Nicky Simmons Hemoglobin (Bld) [Mass/Vol] 13.5 g/dL Normal 12.0-16.0 [facility] Comment on above: Performed By: #### C BC #### [facility] [address] [place] [address] Dr. Nicky Simmons IG # 0.03 10e3/ul Normal 0.00-0.03 [facility] Comment on above: Performed By: #### C BC #### [facility] [address] [place] [address] Dr. Nicky Simmons IG % 0.3 % Normal 0.0-0.5 [facility] Comment on above: Performed By: #### C BC #### [facility] [address] [place] [address] Dr. iNcky Simmons LYMPH # 3.3 103/ul Normal 1.2-3.8 [facility] Comment on above: Performed By: #### C BC #### [facility] [address] [place] [address] Dr. Nicky Simmons Lymphocytes/100 WBC (Bld) 27.9 % Normal 20.5-60.0 [facility] Comment on above: Performed By: #### C BC #### [facility] [address] [place] [address] Dr. Nicky Simmons MANUAL DIFF REQ NO Normal [facility] Comment on above: Performed By: #### C BC #### [facility] [address] [place] [address] Dr. Nicky Simmons MCH (RBC) [Entitic mass] 29.3 pg Normal 26.7-34.0 [facility] Comment on above: Performed By: #### C BC #### [facility] [address] [place] [address] Dr. Nicky Simmons MCHC (RBC) [Mass/Vol] 33.5 g/dL Normal 29.9-35.2 [facility] Comment on above: Performed By: #### C BC #### [facility] [address] [place] [address] Dr. Nicky Simmons MCV (RBC) [Entitic vol] 87.4 fL Normal 81.0-99.0 [facility] Comment on above: Performed By: #### C BC #### [facility] [address] [place] [address] Dr. Nicky Simmons MONO # 0.7 103/ul Normal 0.3-0.8 [facility] Comment on above: Performed By: #### C BC #### [facility] [address] [place] [address] Dr. Nicky Simmons Monocytes/100 WBC (Bld) 6.0 % Normal 1.7-12.0 [facility] Comment on above: Performed By: #### C BC #### [facility] [address] [address] [address] Nicky Simmons NEUT # 7.6 103/ul Critically high 1.4-6.5 [facility] Comment on above: Performed By: #### C BC #### [facility] [address] [id number] Nicky Simmons Neutrophils/100 WBC (Bld) 64.1 % Normal 43.0-75.0 [facility] Comment on above: Performed By: #### C BC #### [facility] [address] [address] [address] Nicky Simmons Platelet mean volume (Bld) [Entitic vol] 9.1 fL Critically low 9.5-13.5 [facility] Comment on above: Performed By: #### C BC #### [facility] [address] [address] [address] Nicky Simmons PLT 381 103/ul Normal 150-450 [facility] Comment on above: Performed By: #### C BC #### [facility] [address] [address] [address] Nicky Simmons RBC 4.61 106/ul Normal 4.20-5.40 [facility] Comment on above: Performed By: #### C BC #### [facility] [address] [address] [address] Nicky Simmons WBC 11.9 103/ul Critically high 4.0-11.0 [facility] Comment on above: Performed By: #### C BC #### [facility] [address] [address] [address] Nicky Simmons PROTIMEon 12-18-2022 INR Coag (PPP) [Relative time] {INR} Normal [facility] Comment on above: Performed By: #### I NFLUAB #### [facility] [address] [place] [address] Dr. Nicky Simmons INR GUIDELINES SEE BELOW Normal [facility] Comment on above: Result Comment: LEOPOLDO RED INR: 2.0 - 3.0 CONDITIONS NOT LISTED BELOW 2.5 - 3.5 FOR PROSTHETIC HEART VALVE REPLACEMENT 2.5 - 3.5 RECURRENT THROMBOSIS Performed By: #### I NFLUAB #### [facility] [address] [place] [address] Dr. Nicky Simmons PT Coag (PPP) [Time] 9.7 s Normal 9.0-11.6 [facility] Comment on above: Performed By: #### I NFLUAB #### [facility] [address] [place] [address] Dr. Nicky Simmons PTTon 12-18-2022 aPTT Coag (Bld) [Time] 27.9 s Normal 22.3-36.2 [facility] Comment on above: Performed By: #### I NFLUAB #### [facility] [address] [place] [address] Dr. Nicky Simmons Covid-19 PCR ([facility])on 11-03 SARS-CoV-2 (COVID-19) RNA GOKUL+probe Ql (Unsp spec) Not detected Normal NOT DETECTED [facility] Comment on above: Result Comment: When diagnostic [...] for this test is supported by the [place] of Health and Human Service's declaration that [...] used). Performed By: #### C VDTBH #### [facility] [address] [place] [address] Dr. Nicky Simmons GROUP A STREP CULTUREon 11-03 S. pyogenes Ag Ql (Unsp spec) Culture Observations: NEGATIVE FOR GROUP A STREPTOCOCCUS. Normal [facility] Comment on above: Performed By: #### C BC #### [facility] [address] [address] [address] Nicky Simmons INFLUENZA A AND B AGon 11-13 INFLUENZA A AG Negative Normal NEGATIVE SEE COMMENT [facility] Comment on above: Performed By: #### I NFLUAB #### [facility] [address] [place] [address] Dr. Nicky Simmons INFLUENZA B AG Negative Normal NEGATIVE SEE COMMENT [facility] Comment on above: Performed By: #### I NFLUAB #### [facility] [address] [place] [address] Dr. Nicky Simmons STREPT SCREENon 11-13-2022 STREP SCREEN A Negative Normal NEGATIVE [facility] Comment on above: Performed By: #### C BC #### [facility] [address] [place] [address] Dr. Nicky Simmons GROUP A STREP CULTUREon 10-07 S. pyogenes Ag Ql (Unsp spec) Culture Observations: NEGATIVE FOR GROUP A STREPTOCOCCUS. Normal [facility] Comment on above: Performed By: #### C BC #### [facility] [address] [place] [address] Dr. Nicky Simmons STREPT SCREENon 11-02-2022 STREP SCREEN A Negative Normal NEGATIVE [facility] Comment on above: Performed By: #### C BC #### [facility] [address] [place] [address] Dr. Nicky Simmons CBC AUTO DIFFon 10-22-2022 BASO # 0.0 103/ul Normal 0.0-0.1 [facility] Comment on above: Performed By: #### C BC #### [facility] [address] [place] [address] Dr. Nicky Simmons Basophils/100 WBC (Bld) 0.3 % Normal 0.2-2.0 [facility] Comment on above: Performed By: #### C BC #### [facility] [address] [place] [address] Dr. Nicky Simmons EO # 0.2 103/ul Normal 0.0-0.7 [facility] Comment on above: Performed By: #### C BC #### [facility] [address] [address] [address] Nicky Simmons Eosinophils/100 WBC (Bld) 1.2 % Normal 0.9-7.0 [facility] Comment on above: Performed By: #### C BC #### [facility] [address] [place] [address] Dr. Nicky Simmons Erythrocyte distribution width (RBC) [Ratio] 12.9 % Normal 11.0-15.0 [facility] Comment on above: Performed By: #### C BC #### [facility] [address] [place] [address] Dr. Nicky Simmons Hematocrit (Bld) [Volume fraction] 45.3 % Normal 36.0-48.0 [facility] Comment on above: Performed By: #### C BC #### [facility] [address] [place] [address] Dr. Nicky Simmons Hemoglobin (Bld) [Mass/Vol] 15.1 g/dL Normal 12.0-16.0 [facility] Comment on above: Performed By: #### C BC #### [facility] [address] [place] [address] Dr. Nicky Simmons IG # 0.07 10e3/ul Critically high 0.00-0.03 [facility] Comment on above: Performed By: #### C BC #### [facility] [address] [place] [address] Dr. Nicky Simmons IG % 0.4 % Normal 0.0-0.5 [facility] Comment on above: Performed By: #### C BC #### [facility] [address] [place] [address] Dr. Nicky Simmons LYMPH # 1.1 103/ul Critically low 1.2-3.8 [facility] Comment on above: Performed By: #### C BC #### [facility] [address] [place] [address] Dr. Nicky Simmons Lymphocytes/100 WBC (Bld) 7.1 % Critically low 20.5-60.0 [facility] Comment on above: Performed By: #### C BC #### [facility] [address] [place] [address] Dr. Nicky Simmons MANUAL DIFF REQ NO Normal [facility] Comment on above: Performed By: #### C BC #### [facility] [address] [place] [address] Dr. Nicky Simmons MCH (RBC) [Entitic mass] 28.8 pg Normal 26.7-34.0 [facility] Comment on above: Performed By: #### C BC #### [facility] [address] [place] [address] Dr. Nicky Simmons MCHC (RBC) [Mass/Vol] 33.3 g/dL Normal 29.9-35.2 [facility] Comment on above: Performed By: #### C BC #### [facility] [address] [place] [address] Dr. Nicky Simmons MCV (RBC) [Entitic vol] 86.3 fL Normal 81.0-99.0 [facility] Comment on above: Performed By: #### C BC #### [facility] [address] [place] [address] Dr. Nicky Simmons MONO # 0.4 103/ul Normal 0.3-0.8 [facility] Comment on above: Performed By: #### C BC #### [facility] [address] [place] [address] Dr. Nicky Simmons Monocytes/100 WBC (Bld) 2.6 % Normal 1.7-12.0 [facility] Comment on above: Performed By: #### C BC #### [facility] [address] [place] [address] Dr. Nicky Simmons NEUT # 14.0 103/ul Critically high 1.4-6.5 [facility] Comment on above: Performed By: #### C BC #### [facility] [address] [place] [address] Dr. Nicky Simmons Neutrophils/100 WBC (Bld) 88.4 % Critically high 43.0-75.0 [facility] Comment on above: Performed By: #### C BC #### [facility] [address] [place], [place] [address] Dr. Nicky Simmons Platelet mean volume (Bld) [Entitic vol] 9.4 fL Critically low 9.5-13.5 [facility] Comment on above: Performed By: #### C BC #### [facility] [address] [address] [address] Nicky Simmons PLT 399 103/ul Normal 150-450 [facility] Comment on above: Performed By: #### C BC #### [facility] [address] [place], [place] [address] Dr. Nicky Simmons RBC 5.25 106/ul Normal 4.20-5.40 [facility] Comment on above: Performed By: #### C BC #### [facility] [address] [address] [address] Nicky Simmons WBC 15.9 103/ul Critically high 4.0-11.0 [facility] Comment on above: Performed By: #### C BC #### [facility] [address] [address] [address] ABD/PELVIS WO CONon [...] JUDY CONKLIN Date: 2022-10-22 00:08 Normal [facility] ER URINE PROFILEon 3 Bilirubin Ql (U) SMALL Abnormal NEGATIVE [facility] Comment on above: Performed By: #### Ashley RUR, PREGU ####[facility] [address] [address]Dr. Nicky Simmons Clarity (U) CLEAR Normal CLEAR [facility] Comment on above: Performed By: #### Ashley RUR, PREGU ####[facility] [address] [address]Dr. Nicky Simmons Color (U) DK. YELLOW Normal YELLOW [facility] Comment on above: Performed By: #### Ashley RUR, PREGU ####[facility] [address] [address]Dr. Nicky Simmons ERUAHD A micrscopic examination will be performed if indicated. Normal [facility] Comment on above: Performed By: #### E RUR, PREGU ####[facility] [address] [address]Dr. Nicky Simmons Glucose Ql (U) Negative Normal NEGATIVE [facility] Comment on above: Performed By: #### E RUR, PREGU ####[facility] [address] [address]Dr. Nicky Simmons Hemoglobin Ql (U) Negative Normal NEGATIVE [facility] Comment on above: Performed By: #### E RUR, PREGU ####[facility] [address] [place] [address]Dr. Nicky Simmons Ketones Ql (U) 15 mg/dl Abnormal NEGATIVE [facility] Comment on above: Performed By: #### Ashley RUR, PREGU ####[facility] [address] [place] [address]Dr. Dulceuday Simmons LEUKOCYTES Negative Normal NEGATIVE [facility] Comment on above: Performed By: #### E RUR, PREGU ####[facility] [address] [place], [place] [address]Dr. Dulceuday Troy Nitrite Ql (U) Negative Normal NEGATIVE [facility] Comment on above: Performed By: #### E RUR, PREGU ####[facility] [address] [place], [place] [address]Dr. Nicky Simmons pH (U) 5.0 [pH] Normal 5-9 [facility] [facility] Comment on above: Performed By: #### Ashley BURGOSR, PREGU ####[facility] F[address] [place], [place] [address]Dr. Nicky Simmons SPEC GRAVITY >=1.030 Abnormal 1.005-<=1.025 [facility] Comment on above: Performed By: #### Ashley JONES, PREGU ####[facility] Wpsayf[address] [place], [place] [address]Dr. Nicky Simmons UA PROTEIN TRACE Normal NEGATIVE/ TRACE [facility] Comment on above: Performed By: #### Ashley RUR, PREGU ####[facility] Enff[address]fdat[address] [place], [place] [address]Dr. Nicky Simmons UR MICRO IND NOT INDICATED Normal [facility] Comment on above: Performed By: #### Ashley RUR, PREGU ####[facility] Y[address] [place], [place] [address]Dr. Nicky Simmons Urobilinogen Qn (U) 0.2 {Yan'U}/dL Normal 0.2 - 1. 0 [facility] Comment on above: Performed By: #### Ashley RUR, PREGU ####[facility] Lupwarsr[address] [place], [place] [address]Dr. Nicky Simmons LIPASEon 10-22-2022 Lipase [Catalytic activity/Vol] 56.0 U/L Critically low 73.0-393.0 [facility] Comment on above: Performed By: #### L IPA ####[facility] [address] [address]Dr. Nicky Simmons PREG HCG QUALon 10-22-2022 , QUAL Negative Normal NEGATIVE [facility] Comment on above: Performed By: #### P REG ####[facility] [address] [id number]. Nicky Simmons URon 10-22-2022 , QUAL Negative Normal NEGATIVE [facility] Comment on above: Performed By: #### E RUR, PREGU ####[facility] [address] [address]Dr. Nicky Simmons PROF 14(COMP METB)on 023 Albumin [Mass/Vol] 3.7 g/dL Normal 3.4-5.0 [facility] [place] Comment on above: Performed By: #### I NFLUAB #### [facility] [address] [place] [address] Dr. Nicky Simmons Albumin/Globulin [Mass ratio] 0.9 {ratio} Normal [facility] Comment on above: Performed By: #### I NFLUAB #### [facility] [address] [address] [address] Nicky Simmons ALP [Catalytic activity/Vol] 128 U/L Critically high 46-116 [facility] Comment on above: Performed By: #### I NFLUAB #### [facility] [address] [address] [address] Nicky Simmons ALT [Catalytic activity/Vol] 38 U/L Normal 14-59 [facility] Comment on above: Performed By: #### I NFLUAB #### [facility] [address] [address] [address] Nicky Simmons Anion gap [Moles/Vol] 17.1 mmol/L Normal [facility] Comment on above: Performed By: #### I NFLUAB #### [facility] [address] [address] [address] Nicky Simmons AST [Catalytic activity/Vol] 27 U/L Normal 15-37 [facility] Comment on above: Performed By: #### I NFLUAB #### [facility] [address] [address] [address] Nicky Simmons Bilirubin [Mass/Vol] 0.5 mg/dL Normal 0.2-1.0 [facility] Comment on above: Performed By: #### I NFLUAB #### [facility] [address] [place] [address] Dr. Nicky Simmons Calcium [Mass/Vol] 8.9 mg/dL Normal 8.5-10.1 [facility] [place] Comment on above: Performed By: #### I NFLUAB #### [facility] [address] [place] [address] Dr. Nicky Simmons Chloride [Moles/Vol] 102 mmol/L Normal 98-107 [facility] Comment on above: Performed By: #### I NFLUAB #### [facility] [address] [place] [address] Dr. Nicky Simmons CO2 [Moles/Vol] 21.9 mmol/L Normal 21.0-32.0 [facility] Comment on above: Performed By: #### I NFLUAB #### [facility] [address] [place] [address] Dr. Nicky Simmons Creatinine [Mass/Vol] 0.77 mg/dL Normal 0.55-1.02 [facility] Comment on above: Performed By: #### I NFLUAB #### [facility] [address] [place] [address] Dr. Nicky Simmons EGFR-AF COSTA RICAN >60 Normal >=60 [facility] Comment on above: Performed By: #### I NFLUAB #### [facility] [address] [place] [address] Dr. Nicky Simmons EGFR-NON AF COSTA RICAN >60 Normal >=60 [facility] Comment on above: Performed By: #### I NFLUAB #### [facility] [address] [place] [address] Dr. Nicky Simmons Globulin (S) [Mass/Vol] 3.9 g/dL Normal [facility] Comment on above: Performed By: #### I NFLUAB #### [facility] [address] [address] [address] Nicky Simmons Glucose [Mass/Vol] 105 mg/dL Normal 74-106 [facility] Comment on above: Performed By: #### I NFLUAB #### [facility] [address] [place] [address] Dr. Nicky Simmons Potassium [Moles/Vol] 4.0 mmol/L Normal 3.5-5.1 [facility] Comment on above: Performed By: #### I NFLUAB #### [facility] [address] [place] [address] Dr. Nicky Simmons Protein [Mass/Vol] 7.6 g/dL Normal 6.4-8.2 [facility] Comment on above: Performed By: #### I NFLUAB #### [facility] [address] [place] [address] Dr. Nicky Simmons Sodium [Moles/Vol] 137 mmol/L Normal 136-145 [facility] Comment on above: Performed By: #### I NFLUAB #### [facility] [address] [place] [address] Dr. Nicky Simmons Urea nitrogen [Mass/Vol] 12.0 mg/dL Normal 7.0-18.0 [facility] Comment on above: Performed By: #### I NFLUAB #### [facility] [address] [place] [address] Dr. Nicky Simmons Urea nitrogen/Creatinine [Mass ratio] 15.6 mg/mg Normal [facility] Comment on above: Performed By: #### I NFLUAB #### [facility] [address] [place] [address] Dr. Nicky Simmons CBC AUTO DIFFon 09-06-2022 BASO # 0.1 103/ul Normal 0.0-0.1 [facility] Comment on above: Performed By: #### C BC ####[facility] [address] [place] [id number]. Nicky Simmons Basophils/100 WBC (Bld) 0.5 % Normal 0.2-2.0 [facility] Comment on above: Performed By: #### C BC ####[facility] [address] [place] [phone]. Nicky Simmons EO # 0.3 103/ul Normal 0.0-0.7 [facility] Comment on above: Performed By: #### C BC ####[facility] [address] [address]Dr. Nicky Simmons Eosinophils/100 WBC (Bld) 2.4 % Normal 0.9-7.0 [facility] Comment on above: Performed By: #### C BC ####[facility] [address] [address]Dr. Nicky Simmons Erythrocyte distribution width (RBC) [Ratio] 12.7 % Normal 11.0-15.0 [facility] Comment on above: Performed By: #### C BC ####[facility] [address] [address]Dr. Nicky Simmons Hematocrit (Bld) [Volume fraction] 37.5 % Normal 36.0-48.0 [facility] Comment on above: Performed By: #### C BC ####[facility] [address] [place] [phone]. Nicky Simmons Hemoglobin (Bld) [Mass/Vol] 12.6 g/dL Normal 12.0-16.0 [facility] Comment on above: Performed By: #### C BC ####[facility] [address] [place] [id number]. Nicky Simmons IG # 0.05 10e3/ul Critically high 0.00-0.03 [facility] Comment on above: Performed By: #### C BC ####[facility] [address] [place] [id number]. Nicky Simmons IG % 0.4 % Normal 0.0-0.5 [facility] Comment on above: Performed By: #### C BC ####[facility] [address] [place] [id number]. Nicky Simmons LYMPH # 2.9 103/ul Normal 1.2-3.8 [facility] Comment on above: Performed By: #### C BC ####[facility] [address] [place] [id number]. Nicky Simmons Lymphocytes/100 WBC (Bld) 25.2 % Normal 20.5-60.0 [facility] Comment on above: Performed By: #### C BC ####[facility] [address] [place] [phone]. Nicky Troy MANUAL DIFF REQ NO Normal [facility] Comment on above: Performed By: #### C BC ####[facility] [address] [place] [phone]. Nicky Troy MCH (RBC) [Entitic mass] 29.4 pg Normal 26.7-34.0 [facility] Comment on above: Performed By: #### C BC ####[facility] [address] [place] [phone]. Nicky Simmons MCHC (RBC) [Mass/Vol] 33.6 g/dL Normal 29.9-35.2 [facility] Comment on above: Performed By: #### C BC ####[facility] [address] [place] [phone]. Nicky Simmons MCV (RBC) [Entitic vol] 87.4 fL Normal 81.0-99.0 [facility] Comment on above: Performed By: #### C BC ####[facility] [address] [place] [id number]. Nicky Troy MONO # 0.7 103/ul Normal 0.3-0.8 [facility] Comment on above: Performed By: #### C BC ####[facility] [address] [place] [phone]. Nicky Troy Monocytes/100 WBC (Bld) 6.4 % Normal 1.7-12.0 [facility] Comment on above: Performed By: #### C BC ####[facility] [address] [place] [phone]. Nicky Simmons NEUT # 7.5 103/ul Critically high 1.4-6.5 [facility] Comment on above: Performed By: #### C BC ####[facility] [address] [place] [phone]. Nicky Simmons Neutrophils/100 WBC (Bld) 65.1 % Normal 43.0-75.0 [facility] Comment on above: Performed By: #### C BC ####[facility] [address] [place] [phone]. Nicky Simmons Platelet mean volume (Bld) [Entitic vol] 9.1 fL Critically low 9.5-13.5 [facility] Comment on above: Performed By: #### C BC ####[facility] [address] [place] [id number]. Nicky Simmons PLT 380 103/ul Normal 150-450 [facility] Comment on above: Performed By: #### C BC ####[facility] [address] [place] [phone]. Nicky Simmons RBC 4.29 106/ul Normal 4.20-5.40 [facility] Comment on above: Performed By: #### C BC ####[facility] [address] [place] [phone]. Nicky Simmons WBC 11.5 103/ul Critically high 4.0-11.0 [facility] Comment on above: Performed By: #### C BC ####[facility] [address] [place], [place] [address]Dr. Nicky Simmons CTA CHEST WO W CONon [...] MUKUND MASSEY Date: 2022-09-06 19:34 Normal [facility] SARS-CoV-2 (COVID-19) RNA GOKUL+probe Ql (Unsp spec) Not detected Normal NOT DETECTED [facility] Comment on above: Result Comment: This test is not yet approved or cleared by the [place] FDA. When there are no FDA-approved or cleared tests available, and other criteria are met, FDA can make tests available under an emergency access mechanism called an Emergency Use Authorization (EUA). The EUA for this test is supported by the Dj Instructor of Health and Human Service's (HHS's) declaration [...] with SARS-CoV-2. Performed By: #### C VDTB ####[facility] [address] [place], [place] [address]Xa. Nicky Simmons D-DIMERon 09-06-2022 D-DIMER 0.62 mg/L FEU Critically high <=0.59 [facility] Comment on above: Performed By: #### D DIM ####[facility] [address] [place] [phone] Simmons D-DIMER COMMENTS SEE BELOW Normal [facility] Comment on above: Result Comment: [...] generalized hospitalization. Performed By: #### D DIM ####[facility] [address] [place] [phone]. Nicky Simmons INFLUENZA A AND B AGon 09-06 INFLUANEGH SEE BELOW Normal [facility] Comment on above: Result Comment: Nega tive for Flu A protein angiten. Infection due to Flu A cannot be ruled out. Flu A angiten in the sample may be below the detection limit of the test. Performed By: #### C BC #### [facility] [address] [place] [address] Dr. Nicky Simmons INFLUBNEGH SEE BELOW Normal [facility] Comment on above: Result Comment: Nega tive for Flu B protein antigen. Infection due to Flu B cannot be ruled out. Flu B antigen in the sample may be below the detection limit of the test. Performed By: #### C BC #### [facility] [address] [place] [address] Dr. Nicky Simmons INFLUENZA A AG Negative Normal NEGATIVE SEE COMMENT [facility] Comment on above: Performed By: #### C BC #### [facility] [address] [address] [address] Nicky Simmons INFLUENZA B AG Negative Normal NEGATIVE SEE COMMENT [facility] Comment on above: Performed By: #### C BC #### [facility] [address] [address] [address] Nicky Simmons PROF CHEM 8 (BAS METB)on Anion gap [Moles/Vol] 12.7 mmol/L Normal [facility] Comment on above: Performed By: #### I NFLUAB #### [facility] [address] [address] [address] Nicky Simmons Calcium [Mass/Vol] 8.6 mg/dL Normal 8.5-10.1 [facility] Comment on above: Performed By: #### I NFLUAB #### [facility] [address] [address] [address] Nicky Simmons Chloride [Moles/Vol] 103 mmol/L Normal 98-107 [facility] Comment on above: Performed By: #### I NFLUAB #### [facility] [address] [place] [address] Dr. Nicky Simmons CO2 [Moles/Vol] 24.9 mmol/L Normal 21.0-32.0 [facility] Comment on above: Performed By: #### I NFLUAB #### [facility] [address] [place] [address] Dr. Nicky Simmons Creatinine [Mass/Vol] 0.86 mg/dL Normal 0.55-1.02 [facility] Comment on above: Performed By: #### I NFLUAB #### [facility] [address] [place] [address] Dr. Nicky Simmons EGFR-AF COSTA RICAN >60 Normal >=60 [facility] Comment on above: Performed By: #### I NFLUAB #### [facility] [address] [place] [address] Dr. Nicky Simmons EGFR-NON AF COSTA RICAN >60 Normal >=60 [facility] Comment on above: Performed By: #### I NFLUAB #### [facility] [address] [place] [address] Dr. Nicky Simmons Glucose [Mass/Vol] 113 mg/dL Critically high 74-106 [facility] Comment on above: Performed By: #### I NFLUAB #### [facility] [address] [place] [address] Dr. Nicky Simmons Potassium [Moles/Vol] 3.6 mmol/L Normal 3.5-5.1 [facility] Comment on above: Performed By: #### I NFLUAB #### [facility] [address] [place], [place] [address] Dr. Nicky Simmons Sodium [Moles/Vol] 137 mmol/L Normal 136-145 [facility] [place] Comment on above: Performed By: #### I NFLUAB #### [facility] [address] [address] [address] Nicky Simmons Urea nitrogen [Mass/Vol] 9.0 mg/dL Normal 7.0-18.0 [facility] Comment on above: Performed By: #### I NFLUAB #### [facility] [address] [address] [address] Nicky Simmons Urea nitrogen/Creatinine [Mass ratio] 10.5 mg/mg Normal [facility] Comment on above: Performed By: #### I NFLUAB #### [facility] [address] [address] [address] Nicky Simmons XR CHEST 1 Von 09-06-2022 XR CHEST 1 V CHEST X-RAY, 1 VIEW HISTORY: Cough. COMPARISON: 05/17/2022. FINDINGS: The heart, angel, and mediastinum are unremarkable. The lungs are grossly clear. There are no pleural effusions. There is no pneumothorax. IMPRESSION: No evidence of acute cardiopulmonary disease. Electronically authenticated by: ESTHER MARY Date: 2022-09-06 18:22 Normal [facility] COVID-19 Positive/NegativeOr dered By: Christopher Mendez on 06-28-2022 SARS-CoV-2 (COVID-19) N gene GOKUL+probe Ql (Resp) Negative Negative [facility] Comment on above: Testing for SARS-CoV -2 by RT-PCRThis test was developed and its performance characteristics determined by [employer] ([place]) and validated at the [facility]. This test has not been FDA [...] NEGATIVE FOR GROUP A STREPTOCOCCUS. Normal [facility] Comment on above: Performed By: #### S SCRN, GRASTCX #### [facility] [address] [place] [address] Dr. Nicky Simmons INFLUENZA A AND B AGon 05-17 INFLUENZA A AG Negative Normal NEGATIVE SEE COMMENT [facility] Comment on above: Performed By: #### C BC #### [facility] [address] [place] [address] Dr. Nicky Simmons INFLUENZA B AG Negative Normal NEGATIVE SEE COMMENT [facility] Comment on above: Performed By: #### C BC #### [facility] [address] [address] [address] Nicky Simmons INTERNAL CONTROLS Within Normal Limits Normal Wi thin Normal Limits [facility] Comment on above: Performed By: #### C BC #### [facility] [address] [place] [address] Dr. Nicky Simmons RESPIRATORY PANEL PLUSon Adenovirus Not detected Normal NOT DETECTED [facility] Comment on above: Performed By: #### R SPLUS ####[facility] [address] [place] [address]DrBella Simmons B. Parapertusis Not detected Normal NOT DETECTED [facility] Comment on above: Performed By: #### R SPLUS ####[facility] [address] [place] [address]DrBella Simmons B. Pertussis Not detected Normal NOT DETECTED [facility] Comment on above: Performed By: #### R SPLUS ####[facility] [address] [place] [address]Dr. Nicky Simmons Chlamydia Pneumoniae Not detected Normal NOT DETECTED [facility] Comment on above: Performed By: #### R SPLUS ####[facility] [address] [place], [place] [address]Dr. Nicky Simmons Coronavirus 229E Not detected Normal NOT DETECTED [facility] Comment on above: Performed By: #### R SPLUS ####[facility] [address]spypts[address] [place], [place] [address]Dr. Nicky Simmons Coronavirus HKU1 Not detected Normal NOT DETECTED [facility] Comment on above: Performed By: #### R SPLUS ####[facility] [address]zr[address] [place], [place] [address]Dr. Nicky Simmons Coronavirus NL63 Not detected Normal NOT DETECTED [facility] Comment on above: Performed By: #### R SPLUS ####[facility] [address] [place], [place] [address]Dr. Nicky Simmons Coronavirus OC43 Not detected Normal NOT DETECTED [facility] Comment on above: Performed By: #### R SPLUS ####[facility] [address] [place], [place] [address]Dr. Nicky Simmons Influenza A H1 2009 Not detected Normal NOT DETECTED [facility] Comment on above: Performed By: #### R SPLUS ####[facility] [address] [place], [place] [address]Dr. Nicky Simmons Influenza A H3 Not detected Normal NOT DETECTED [facility] Comment on above: Performed By: #### R SPLUS ####[facility] [address]mppx[address] [place], [place] [address]Dr. Nicky Simmons Influenza B Not detected Normal NOT DETECTED [facility] Comment on above: Performed By: #### R SPLUS ####[facility] [address]ms[address]riat[address] [place], [place] [address]Dr. Dulceuday Simmons Metapneumovirus Not detected Normal NOT DETECTED [facility] Comment on above: Performed By: #### R SPLUS ####[facility] [address]jcj[address] [place], [place] [address]Dr. Nicky Simmons Mycoplas. Pneumoniae Not detected Normal NOT DETECTED [facility] Comment on above: Performed By: #### R SPLUS ####[facility] [address]acci[address] [place], [place] [address]Dr. Nicky Simmons Parainfluenza 1 Not detected Normal NOT DETECTED [facility] Comment on above: Performed By: #### R SPLUS ####[facility] [address]bibjst[address] [place], [place] [address]Dr. Nicky Simmons Parainfluenza 2 Not detected Normal NOT DETECTED [facility] Comment on above: Performed By: #### R SPLUS ####[facility] [address]fzi[address] [place], [place] [address]Dr. Nicky Simmons Parainfluenza 3 Not detected Normal NOT DETECTED [facility] Comment on above: Performed By: #### R SPLUS ####[facility] [address]azic[address] [place], [place] [address]Dr. Nicky Simmons Parainfluenza 4 Not detected Normal NOT DETECTED [facility] Comment on above: Performed By: #### R SPLUS ####[facility] [address]ay[address] [place], [place] [address]Dr. Nicky Simmons Rhino/Enterovirus Detected Abnormal NOT DETECTED [facility] Comment on above: Performed By: #### R SPLUS ####[facility] [address]empj[address] [place], [place] [address]Dr. Nicky Simmons RP2 Header 1 RESPIRATORY PANEL: VIRUSES Normal [facility] Comment on above: Performed By: #### R SPLUS ####[facility] [address] [place], [place] [address]Dr. Nicky Simmons RP2 Header 2 RESPIRATORY PANEL: BACTERIA Normal [facility] Comment on above: Performed By: #### R SPLUS ####[facility] [address]sy[address] [place], [place] [address]Dr. Nicky Simmons RSV Not detected Normal NOT DETECTED [facility] Comment on above: Performed By: #### R SPLUS ####[facility] Rvtobqbiun[address] [place], [place] [address]Dr. Nicky Simmons SARS-CoV-2 (COVID-19) RNA GOKUL+probe Ql (Unsp spec) Not detected Normal NOT DETECTED [facility] Comment on above: Performed By: #### R SPLUS ####[facility] [address] [place] [id number]. Nicky Simomns Result Comment: When diagnostic testing is negative, [...] for this test is supported by the Dj Instructor of Health and Human Service's declaration that [...] used). Performed By: #### I NFLUAB #### [facility] [id number] Nicky Simmons STREPT SCREENon 05-17-2022 STREP SCREEN A Negative Normal NEGATIVE [facility] Comment on above: Performed By: #### S SCRN, GRASTCX #### [facility] [id number] Nicky Simmons XR CHEST 1 Von [...] LOUIE LIRIANO Date: 2022-05-17 15:42 Normal [facility] CBC AUTO DIFFon 04-16-2022 BASO # 0.1 103/ul Normal 0.0-0.1 [facility] Comment on above: Performed By: #### C BC #### [facility] [address] [address] [address] Nicky Simmons Basophils/100 WBC (Bld) 0.5 % Normal 0.2-2.0 [facility] Comment on above: Performed By: #### C BC #### [facility] [address] [address] [address] Nicky Simmons EO # 0.2 103/ul Normal 0.0-0.7 [facility] Comment on above: Performed By: #### C BC #### [facility] [address] [address] [address] Nicky Simmons Eosinophils/100 WBC (Bld) 2.1 % Normal 0.9-7.0 [facility] Comment on above: Performed By: #### C BC #### [facility] [facility] [address] [address] [address] Nicky Simmons Erythrocyte distribution width (RBC) [Ratio] 13.0 % Normal 11.0-15.0 [facility] Comment on above: Performed By: #### C BC #### [facility] [address] [place] [address] Dr. Nicky Simmons Hematocrit (Bld) [Volume fraction] 41.7 % Normal 36.0-48.0 [facility] Comment on above: Performed By: #### C BC #### [facility] [address] [address] [address] Nicky Simmons Hemoglobin (Bld) [Mass/Vol] 13.5 g/dL Normal 12.0-16.0 [facility] Comment on above: Performed By: #### C BC #### [facility] [address] [address] [address] Nicky Simmons IG # 0.06 10e3/ul Critically high 0.00-0.03 [facility] Comment on above: Performed By: #### C BC #### [facility] [address] [place] [address] Dr. Nicky Simmons IG % 0.6 % Critically high 0.0-0.5 [facility] Comment on above: Performed By: #### C BC #### [facility] [address] [place] [address] Dr. Nicky Simmons LYMPH # 2.4 103/ul Normal 1.2-3.8 [facility] Comment on above: Performed By: #### C BC #### [facility] [address] [place] [address] Dr. Nicky Simmons Lymphocytes/100 WBC (Bld) 23.1 % Normal 20.5-60.0 [facility] Comment on above: Performed By: #### C BC #### [facility] [address] [place] [address] Dr. Nicky Simmons MANUAL DIFF REQ NO Normal [facility] Comment on above: Performed By: #### C BC #### [facility] [address] [place] [address] Dr. Nicky Simmons MCH (RBC) [Entitic mass] 29.2 pg Normal 26.7-34.0 [facility] Comment on above: Performed By: #### C BC #### [facility] [address] [place] [address] Dr. Nicky Simmons MCHC (RBC) [Mass/Vol] 32.4 g/dL Normal 29.9-35.2 [facility] Comment on above: Performed By: #### C BC #### [facility] [address] [place] [address] Dr. Nicky Simmons MCV (RBC) [Entitic vol] 90.1 fL Normal 81.0-99.0 [facility] Comment on above: Performed By: #### C BC #### [facility] [address] [place] [address] Dr. Nicky Simmons MONO # 0.6 103/ul Normal 0.3-0.8 [facility] Comment on above: Performed By: #### C BC #### [facility] [address] [place], [place] [id number] Dr. Nicky Simmons Monocytes/100 WBC (Bld) 5.6 % Normal 1.7-12.0 [facility] Comment on above: Performed By: #### C BC #### [facility] [address] [address] [address] Nicky Simmons NEUT # 7.2 103/ul Critically high 1.4-6.5 [facility] Comment on above: Performed By: #### C BC #### [facility] [address] [address] [address] Nicky Simmons Neutrophils/100 WBC (Bld) 68.1 % Normal 43.0-75.0 [facility] Comment on above: Performed By: #### C BC #### [facility] [address] [place] [address] Dr. Nicky Simmons Platelet mean volume (Bld) [Entitic vol] 9.6 fL Normal 9.5-13.5 [facility] Comment on above: Performed By: #### C BC #### [facility] [address] [place] [address] Dr. Nicky Simmons PLT 339 103/ul Normal 150-450 [facility] Comment on above: Performed By: #### C BC #### [facility] [address] [place] [address] Dr. Nicky Simmons RBC 4.63 106/ul Normal 4.20-5.40 [facility] Comment on above: Performed By: #### C BC #### [facility] [address] [place] [address] Dr. Nicky Simmons WBC 10.6 103/ul Normal 4.0-11.0 [facility] Comment on above: Performed By: #### C BC #### [facility] [address] [place], [place] [id number] Dr. Nicky Simmons PREG HCG QUALon 04-16-2022 , QUAL Negative Normal NEGATIVE [facility] Comment on above: Performed By: #### P REG ####[facility] [id number] [address]Dr. Nicky Simmons Covid-19 PCR (CVDTBH)on SARS-CoV-2 (COVID-19) RNA GOKUL+probe Ql (Unsp spec) Not detected Normal NOT DETECTED [facility] Comment on above: Result Comment: This test is not yet approved or cleared by the [place] FDA. When there are no FDA-approved or cleared tests available, and other criteria are met, FDA can make tests available under an emergency access mechanism called an Emergency Use Authorization (EUA). The EUA for this test is supported by the [employer] Instructor of Health and Human Service's (HHS's) declaration [...] with SARS-CoV-2. Performed By: #### C VDTBH ####[facility] [address] [address]Dr. Nicky Simmons CBC AUTO DIFFon 03-23-2022 BASO # 0.0 103/ul Normal 0.0-0.1 [facility] Comment on above: Performed By: #### I NFLUAB #### [facility] [address] [address] [address] Nicky Simmons Basophils/100 WBC (Bld) 0.4 % Normal 0.2-2.0 [facility] Comment on above: Performed By: #### I NFLUAB #### [facility] [address] [address] [address] Nicky Simmons EO # 0.4 103/ul Normal 0.0-0.7 [facility] Comment on above: Performed By: #### I NFLUAB #### [facility] [address] [address] [address] Nicky Simmons Eosinophils/100 WBC (Bld) 3.3 % Normal 0.9-7.0 [facility] Comment on above: Performed By: #### I NFLUAB #### [facility] [address] [place] [address] Dr. Nicky Simmons Erythrocyte distribution width (RBC) [Ratio] 12.9 % Normal 11.0-15.0 [facility] Comment on above: Performed By: #### I NFLUAB #### [facility] [address] [place] [address] Dr. Nicky Simmons Hematocrit (Bld) [Volume fraction] 41.7 % Normal 36.0-48.0 [facility] Comment on above: Performed By: #### I NFLUAB #### [facility] [address] [place] [address] Dr. Nicky Simmons Hemoglobin (Bld) [Mass/Vol] 13.7 g/dL Normal 12.0-16.0 [facility] Comment on above: Performed By: #### I NFLUAB #### [facility] [address] [place] [address] Dr. Nicky Simmons IG # 0.04 10e3/ul Critically high 0.00-0.03 [facility] Comment on above: Performed By: #### I NFLUAB #### [facility] [address] [place] [address] Dr. Nicky Simmons IG % 0.4 % Normal 0.0-0.5 [facility] Comment on above: Performed By: #### I NFLUAB #### [facility] [address] [place] [address] Dr. Nicky Simmons LYMPH # 2.5 103/ul Normal 1.2-3.8 [facility] Comment on above: Performed By: #### I NFLUAB #### [facility] [address] [place] [address] Dr. Nicky Simmons Lymphocytes/100 WBC (Bld) 22.3 % Normal 20.5-60.0 [facility] Comment on above: Performed By: #### I NFLUAB #### [facility] [address] [place] [address] Dr. Nicky Simmons MANUAL DIFF REQ NO Normal [facility] Comment on above: Performed By: #### I NFLUAB #### [facility] [address] [place] [address] Dr. Nicky Simmons MCH (RBC) [Entitic mass] 29.3 pg Normal 26.7-34.0 [facility] Comment on above: Performed By: #### I NFLUAB #### [facility] [address] [place] [address] Dr. Nicky Simmons MCHC (RBC) [Mass/Vol] 32.9 g/dL Normal 29.9-35.2 [facility] Comment on above: Performed By: #### I NFLUAB #### [facility] [address] [place] [address] Dr. Nicky Simmons MCV (RBC) [Entitic vol] 89.1 fL Normal 81.0-99.0 [facility] Comment on above: Performed By: #### I NFLUAB #### [facility] [address] [place] [address] Dr. Nicky Simmons MONO # 0.6 103/ul Normal 0.3-0.8 [facility] Comment on above: Performed By: #### I NFLUAB #### [facility] [address] [place] [address] Dr. Nicky Simmons Monocytes/100 WBC (Bld) 5.4 % Normal 1.7-12.0 [facility] Comment on above: Performed By: #### I NFLUAB #### [facility] [address] [place] [address] Dr. Nicky Simmons NEUT # 7.6 103/ul Critically high 1.4-6.5 [facility] Comment on above: Performed By: #### I NFLUAB #### [facility] [address] [place] [address] Dr. Nicky Simmons Neutrophils/100 WBC (Bld) 68.2 % Normal 43.0-75.0 [facility] Comment on above: Performed By: #### I NFLUAB #### [facility] [address] [place] [address] Dr. Nicky Simmons Platelet mean volume (Bld) [Entitic vol] 9.2 fL Critically low 9.5-13.5 [facility] Comment on above: Performed By: #### I NFLUAB #### [facility] [address] [address] [address] Nicky Simmons PLT 387 103/ul Normal 150-450 [facility] Comment on above: Performed By: #### I NFLUAB #### [facility] [address] [address] [address] Nicky Simmons RBC 4.68 106/ul Normal 4.20-5.40 [facility] Comment on above: Performed By: #### I NFLUAB #### [facility] [address] [address] [address] Nicky Simmons WBC 11.1 103/ul Critically high 4.0-11.0 [facility] Comment on above: Performed By: #### I NFLUAB #### [facility] [address] [address] [address] Nicky Simmons CRPon 03-23-2022 CRP 1.8 mg/dL Critically high <=1.0 [facility] Comment on above: Performed By: #### I NFLUAB #### [facility] [address] [place] [address] Dr. Nicky Simmons PROF CHEM 8 (BAS METB)on Anion gap [Moles/Vol] 12.2 mmol/L Normal [facility] Comment on above: Performed By: #### I NFLUAB #### [facility] [address] [place] [address] Dr. Nicky Simmons Calcium [Mass/Vol] 8.8 mg/dL Normal 8.5-10.1 [facility] Comment on above: Performed By: #### I NFLUAB #### [facility] [address] [place] [address] Dr. Nicky Simmons Chloride [Moles/Vol] 107 mmol/L Normal 98-107 [facility] Comment on above: Performed By: #### I NFLUAB #### [facility] [address] [address] [address] Nicky Simmons CO2 [Moles/Vol] 23.8 mmol/L Normal 21.0-32.0 [facility] Comment on above: Performed By: #### I NFLUAB #### [facility] [address] [address] [address] Nicky Simmons Creatinine [Mass/Vol] 0.78 mg/dL Normal 0.55-1.02 [facility] Comment on above: Performed By: #### I NFLUAB #### [facility] [address] [address] [address] Nicky Simmons EGFR-AF [place] >60 Normal >=60 [facility] Comment on above: Performed By: #### I NFLUAB #### [facility] [address] [address] [address] Nicky Simmons EGFR-NON AF [place] >60 Normal >=60 [facility] Comment on above: Performed By: #### I NFLUAB #### [facility] [address] [address] [address] Nicky Simmons Glucose [Mass/Vol] 121 mg/dL Critically high 74-106 [facility] Comment on above: Performed By: #### I NFLUAB #### [facility] [address] [address] [address] Nicky Simmons Potassium [Moles/Vol] 4.0 mmol/L Normal 3.5-5.1 [facility] Comment on above: Performed By: #### I NFLUAB #### [facility] [address] [address] [address] Nicky Simmons Sodium [Moles/Vol] 139 mmol/L Normal 136-145 [facility] Comment on above: Performed By: #### I NFLUAB #### [facility] [address] [address] [address] Nicky Simmons Urea nitrogen [Mass/Vol] 11.0 mg/dL Normal 7.0-18.0 [facility] Comment on above: Performed By: #### I NFLUAB #### [facility] [address] [address] [address] Nicky Simmons Urea nitrogen/Creatinine [Mass ratio] 14.1 mg/mg Normal [facility] Comment on above: Performed By: #### I NFLUAB #### [facility] [address] [address] [address] Nicky Simmons [facility] 36 mm/hr Critically high <=20 [facility] Comment on above: Performed By: #### C BC #### [facility] [address] [address] [address] Nicky Simmons XR KNEE LT 4V [...] MARIAM SANCHEZ Date: 2022-02-27 22:00 Normal [facility] CBC AUTO DIFFon 02-23-2022 BASO # 0.1 103/ul Normal 0.0-0.1 [facility] Comment on above: Performed By: #### C BC #### [facility] [address] [address] [address] Nicky Simmons Basophils/100 WBC (Bld) 0.6 % Normal 0.2-2.0 [facility] Comment on above: Performed By: #### C BC #### [facility] [address] [place] [address] Dr. Nicky Simmons EO # 0.3 103/ul Normal 0.0-0.7 [facility] Comment on above: Performed By: #### C BC #### [facility] [address] [address] [address] Nicky Simmons Eosinophils/100 WBC (Bld) 2.5 % Normal 0.9-7.0 [facility] Comment on above: Performed By: #### C BC #### [facility] [address] [place] [address] Dr. Nicky Simmons Erythrocyte distribution width (RBC) [Ratio] 12.8 % Normal 11.0-15.0 [facility] Comment on above: Performed By: #### C BC #### [facility] [address] [place] [address] Dr. Nicky Simmons Hematocrit (Bld) [Volume fraction] 39.5 % Normal 36.0-48.0 [facility] Comment on above: Performed By: #### C BC #### [facility] [address] [place] [address] Dr. Nicky Simmons Hemoglobin (Bld) [Mass/Vol] 13.0 g/dL Normal 12.0-16.0 [facility] Comment on above: Performed By: #### C BC #### [facility] [address] [place] [address] Dr. Nicky Simmons IG # 0.04 10e3/ul Critically high 0.00-0.03 [facility] Comment on above: Performed By: #### C BC #### [facility] [address] [place] [address] Dr. Nicky Simmons IG % 0.3 % Normal 0.0-0.5 [facility] Comment on above: Performed By: #### C BC #### [facility] [address] [place] [address] Dr. Nicky Simmons LYMPH # 3.0 103/ul Normal 1.2-3.8 [facility] Comment on above: Performed By: #### C BC #### [facility] [address] [place] [address] Dr. Nicky Simmons Lymphocytes/100 WBC (Bld) 24.4 % Normal 20.5-60.0 [facility] Comment on above: Performed By: #### C BC #### [facility] [address] [place] [address] Dr. Nicky Simmons MANUAL DIFF REQ NO Normal [facility] Comment on above: Performed By: #### C BC #### [facility] [address] [place] [address] Dr. Nicky Simmons MCH (RBC) [Entitic mass] 29.4 pg Normal 26.7-34.0 [facility] Comment on above: Performed By: #### C BC #### [facility] [address] [place] [address] Dr. Nicky Simmons MCHC (RBC) [Mass/Vol] 32.9 g/dL Normal 29.9-35.2 [facility] Comment on above: Performed By: #### C BC #### [facility] [address] [address] [address] Nicky Simmons MCV (RBC) [Entitic vol] 89.4 fL Normal 81.0-99.0 [facility] Comment on above: Performed By: #### C BC #### [facility] [address] [place] [address] Dr. Nicky Simmons MONO # 0.7 103/ul Normal 0.3-0.8 [facility] Comment on above: Performed By: #### C BC #### [facility] [address] [place] [address] Dr. Nicky Simmons Monocytes/100 WBC (Bld) 6.0 % Normal 1.7-12.0 [facility] Comment on above: Performed By: #### C BC #### [facility] [address] [place] [address] Dr. Nicky Simmons NEUT # 8.0 103/ul Critically high 1.4-6.5 [facility] Comment on above: Performed By: #### C BC #### [facility] [address] [place] [address] Dr. Nicky Simmons Neutrophils/100 WBC (Bld) 66.2 % Normal 43.0-75.0 [facility] Comment on above: Performed By: #### C BC #### [facility] [address] [place] [address] Dr. Nicky Simmons Platelet mean volume (Bld) [Entitic vol] 9.1 fL Critically low 9.5-13.5 [facility] Comment on above: Performed By: #### C BC #### [facility] [address] [place] [address] Dr. Nicky Simmons PLT 367 103/ul Normal 150-450 [facility] Comment on above: Performed By: #### C BC #### [facility] [address] [place] [address] Dr. Nicky Simmons RBC 4.42 106/ul Normal 4.20-5.40 [facility] Comment on above: Performed By: #### C BC #### [facility] [address] [place] [address] Dr. Nicky Simmons WBC 12.1 103/ul Critically high 4.0-11.0 [facility] Comment on above: Performed By: #### C BC #### [facility] [address] [place] [address] Dr. Nicky Simmons ER URINE PROFILEon 2 Bilirubin Ql (U) Negative Normal NEGATIVE [facility] Comment on above: Performed By: #### I NFLUAB #### [facility] [address] [place] [address] Dr. Nicky Simmons Clarity (U) CLEAR Normal CLEAR [facility] Comment on above: Performed By: #### I NFLUAB #### [facility] [address] [place] [address] Dr. Nicky Simmons Color (U) RED Abnormal YELLOW [facility] Comment on above: Performed By: #### I NFLUAB #### [facility] [address] [place] [address] Dr. Nicky LOVINGMargaux A micrscopic examination will be performed if indicated. Normal [facility] Comment on above: Performed By: #### I NFLUAB #### [facility] [address] [place] [address] Dr. Nicky Simmons Glucose Ql (U) Negative Normal NEGATIVE [facility] Comment on above: Performed By: #### I NFLUAB #### [facility] [address] [place] [address] Dr. Nicky Simmons Hemoglobin Ql (U) LARGE Abnormal NEGATIVE [facility] Comment on above: Performed By: #### I NFLUAB #### [facility] [address] [place] [address] Dr. Nicky Simmons Ketones Ql (U) Negative Normal NEGATIVE [facility] Comment on above: Performed By: #### I NFLUAB #### [facility] [address] [place] [address] Dr. Nicky Simmons LEUKOCYTES Negative Normal NEGATIVE [facility] Comment on above: Performed By: #### I NFLUAB #### [facility] [address] [place] [address] Dr. Nicky Simmons Nitrite Ql (U) Negative Normal NEGATIVE [facility] Comment on above: Performed By: #### I NFLUAB #### [facility] [address] [place] [address] Dr. Nicky Simmons pH (U) 8.5 [pH] Normal 5-9 [facility] Comment on above: Performed By: #### I NFLUAB #### [facility] [address] [place] [address] Dr. Nicky Simmons SPEC GRAVITY 1.015 Normal 1.005-<=1.025 [facility] Comment on above: Performed By: #### I NFLUAB #### [facility] [address] [place] [address] Dr. Nicky Simmons UA PROTEIN TRACE Normal NEGATIVE/ TRACE [facility] Comment on above: Performed By: #### I NFLUAB #### [facility] [address] [place] [address] Dr. Nicky Simmons UR MICRO IND INDICATED Normal [facility] Comment on above: Performed By: #### I NFLUAB #### [facility] [address] [place] [address] Dr. Nicky Simmons Urobilinogen Qn (U) 0.2 {Yan'U}/dL Normal 0.2 - 1. 0 [facility] Comment on above: Performed By: #### I NFLUAB #### [facility] [address] [place] [address] Dr. Nicky Simmons SED RATE [facility] 2021 SED RATE 30 mm/hr Critically high <=20 [facility] Comment on above: Performed By: #### S EDR ####[facility] [id number] [address]Dr[address] Nicky Simmons URINE MICROSCOPIC ONLYon BACTERIA TRACE Abnormal NONE SEEN [facility] Comment on above: Performed By: #### I NFLUAB #### [facility] [address] [place] [address] Dr. Nicky Simmons Bacteria identified Cx Nom (U) NOT INDICATED Normal [facility] Comment on above: Performed By: #### I NFLUAB #### [facility] [address] [address] [address] Nicky Simmons CAST NONE SEEN Normal NONE SEEN [facility] Comment on above: Performed By: #### I NFLUAB #### [facility] [address] [place] [address] Dr. Nicky Simmons Crystals LM Nom (Urine sed) NONE SEEN Normal NONE SEEN [facility] Comment on above: Performed By: #### I NFLUAB #### [facility] [address] [place] [address] Dr. Nicky Simmons Epithelial cells LM Ql (Urine sed) RARE Normal NONE SEEN /RARE [facility] Comment on above: Performed By: #### I NFLUAB #### [facility] [address] [place] [address] Dr. Nicky Simmons MUCOUS NONE SEEN Normal NONE SEEN [facility] Comment on above: Performed By: #### I NFLUAB #### [facility] [address] [place] [address] Dr. Nicky Simmons RBC 75-100 Abnormal 0-2 [facility] Comment on above: Performed By: #### I NFLUAB #### [facility] [address] [address] [address] Nicky Simmons WBC 2-5 Abnormal NONE SEEN [facility] Comment on above: Performed By: #### I NFLUAB #### [facility] [address] [place] [address] Dr. Nicky Simmons US PELVISon 02-23-2022 [place] [...] by: SREE LYLE Date: 2022-02-23 13:53 Normal [facility] C-Reactive Proteinon 020 CRP [Mass/Vol] 2.8 mg/L Normal 0.0-5.0 [facility] Comment on above: Performed By: #### C DP, CRP, CP, TROPI, HCG, LD #### [facility] [address] [place] [address] Aged Or Disabled Care Worker: Christopher Dorsey DO CRP [Mass/Vol] 2.8 mg/L 0 - 5 mg/L [place], [place] CBC Auto Differentialon 02-04 Basophils (Bld) [#/Vol] 0.00 10*3/uL [place], [place] Basophils/100 WBC (Bld) 0 % 0 - 2 % [place] Differential Type NOT REPORTED [place] Eosinophils (Bld) [#/Vol] 0.20 10*3/uL [place] Eosinophils/100 WBC (Bld) 3 % 0 - 4 % [place] Erythrocyte distribution width (RBC) [Ratio] 13.5 % 11.5 - 14.9 % [place] Hematocrit (Bld) [Volume fraction] 39.3 % 36 - 46 % [place] Hemoglobin (Bld) [Mass/Vol] 12.9 g/dL 12 - 16 g/dL [place] Lymphocytes (Bld) [#/Vol] 2.00 10*3/uL [place] Lymphocytes/100 WBC (Bld) 29 % 24 - 44 % [place] MCH (RBC) [Entitic mass] 29.3 pg 26 - 34 pg [place] MCHC (RBC) [Mass/Vol] 32.7 g/dL 31 - 37 g/dL [place] MCV (RBC) [Entitic vol] 89.6 fL 80 - 100 fL [place] Monocytes (Bld) [#/Vol] 0.50 10*3/uL [place] Monocytes/100 WBC (Bld) 7 % 1 - 7 % [place] Platelet mean volume (Bld) [Entitic vol] 8.3 fL 6 - 12 fL [place], [place] Platelets (Bld) [#/Vol] 238 10*3/uL [place] Platelets (Bld) [#/Vol] NOT REPORTED [place] RBC (Bld) [#/Vol] 4.39 10*6/uL 4 - 5.2 m/uL [place], [place] RBC morphology finding Nom (Bld) NOT REPORTED [place] Segmented neutrophils/100 WBC (Bld) 61 % 36 - 66 % [place] Segs Absolute 4.20 [place], [place] WBC (Bld) [#/Vol] NOT REPORTED per 100 WBC [place] WBC (Bld) [#/Vol] 7.0 10*3/uL [place] WBC Morphology NOT REPORTED [place] CBC with Diffon 03-01-2020 Abs. Basophil 0.00 k/uL Normal 0.0-0.2 [facility] Comment on above: Performed By: #### C DP, CRP, CP, TROPI, HCG, LD #### [facility] [address] [facility] [place] [address] Aged Or Disabled Care Worker: Christopher Dorsey DO Abs.Neutrophil (Seg) 4.20 k/uL Normal 1.3-9.1 [facility] Comment on above: Performed By: #### C DP, CRP, CP, TROPI, HCG, LD #### [facility] [address] [facility] [place] [address] Aged Or Disabled Care Worker: Christopher Dorsey DO Basophils/100 WBC (Bld) 0 % Normal 0-2 [facility] Comment on above: Performed By: #### C DP, CRP, CP, TROPI, HCG, LD #### [facility] [address] [place] [address] Aged Or Disabled Care Worker: Christopher Dorsey DO Eosinophils (Bld) [#/Vol] 0.20 10*3/uL Normal 0.0-0.4 [facility] Comment on above: Performed By: #### C DP, CRP, CP, TROPI, HCG, LD #### [facility] [address] [facility] [place] [address] Aged Or Disabled Care Worker: Christopher Dorsey DO Eosinophils/100 WBC (Bld) 3 % Normal 0-4 [facility] Comment on above: Performed By: #### C DP, CRP, CP, TROPI, HCG, LD #### [facility] [address] [facility] [place] [address] Aged Or Disabled Care Worker: Christopher Dorsey DO Erythrocyte distribution width (RBC) [Ratio] 13.5 % Normal 11.5-14.9 [facility] Comment on above: Performed By: #### C DP, CRP, CP, TROPI, HCG, LD #### [facility] [address] [facility] [place] [address] Aged Or Disabled Care Worker: Christopher Dorsey DO Hematocrit (Bld) [Volume fraction] 39.3 % Normal 36-46 [facility] Comment on above: Performed By: #### C DP, CRP, CP, TROPI, HCG, LD #### [facility] [place] [address] Aged Or Disabled Care Worker: Christopher Dorsey DO Hemoglobin (Bld) [Mass/Vol] 12.9 g/dL Normal 12.0-16.0 [facility] Comment on above: Performed By: #### C DP, CRP, CP, TROPI, HCG, LD #### [facility] [address] [facility] [place] [address] Aged Or Disabled Care Worker: Christopher Dorsey DO Lymphocytes (Bld) [#/Vol] 2.00 10*3/uL Normal 1.0-4.8 [facility] Comment on above: Performed By: #### C DP, CRP, CP, TROPI, HCG, LD #### [facility] [address] [facility] [place] [address] Aged Or Disabled Care Worker: Christopher Dorsey DO Lymphocytes/100 WBC (Bld) 29 % Normal 24-44 [facility] Comment on above: Performed By: #### C DP, CRP, CP, TROPI, HCG, LD #### [facility] [address] [facility] [place] [address] Aged Or Disabled Care Worker: Christopher Dorsey DO MCH (RBC) [Entitic mass] 29.3 pg Normal 26-34 [facility] Comment on above: Performed By: #### C DP, CRP, CP, TROPI, HCG, LD #### [facility] [place] [address] Aged Or Disabled Care Worker: Christopher Dorsey DO MCHC (RBC) [Mass/Vol] 32.7 g/dL Normal 31-37 [facility] Comment on above: Performed By: #### C DP, CRP, CP, TROPI, HCG, LD #### [facility] [place] [address] Aged Or Disabled Care Worker: Christopher Dorsey DO MCV (RBC) [Entitic vol] 89.6 fL Normal 80-100 [facility] Comment on above: Performed By: #### C DP, CRP, CP, TROPI, HCG, LD #### [facility] [place] [address] Aged Or Disabled Care Worker: Christopher Dorsey DO Monocytes (Bld) [#/Vol] 0.50 10*3/uL Normal 0.1-1.3 [facility] Comment on above: Performed By: #### C DP, CRP, CP, TROPI, HCG, LD #### [facility] [address] [place] [address] Aged Or Disabled Care Worker: Christopher Dorsey DO Monocytes/100 WBC (Bld) 7 % Normal 1-7 [facility] Comment on above: Performed By: #### C DP, CRP, CP, TROPI, HCG, LD #### [facility] [address] [place] [address] Aged Or Disabled Care Worker: Christopher Dorsey DO Neutrophil (Seg) 61 % Normal 36-66 [facility] Comment on above: Performed By: #### C DP, CRP, CP, TROPI, HCG, LD #### [facility] [address] [place] [address] Aged Or Disabled Care Worker: Christopher Dorsey DO Platelet mean volume (Bld) [Entitic vol] 8.3 fL Normal 6.0-12.0 [facility] Comment on above: Performed By: #### C DP, CRP, CP, TROPI, HCG, LD #### [facility] [address] [place] [address] Aged Or Disabled Care Worker: Christopher Dorsey DO Platelets (Bld) [#/Vol] 238 10*3/uL Normal 150-450 [facility] Comment on above: Performed By: #### C DP, CRP, CP, TROPI, HCG, LD #### [facility] [address] [place] [address] Aged Or Disabled Care Worker: Christopher Dorsey DO RBC (Bld) [#/Vol] 4.39 10*6/uL Normal 4.0-5.2 [facility] Comment on above: Performed By: #### C DP, CRP, CP, TROPI, HCG, LD #### [facility] [address] [facility] [place] [address] Aged Or Disabled Care Worker: Christopher Dorsey DO WBC (Bld) [#/Vol] 7.0 10*3/uL Normal 3.5-11.0 [facility] Comment on above: Performed By: #### C DP, CRP, CP, TROPI, HCG, LD #### [facility] [address] [facility] [place] [address] Aged Or Disabled Care Worker: Christopher Dorsey DO Abs.Imm.Granulocyte NOT REPORTED Normal 0.00-0.30 [facility] Comment on above: Performed By: #### C DP, CRP, CP, TROPI, HCG, LD #### [facility] [address] [facility] [place] [address] Aged Or Disabled Care Worker: Christopher Dorsey DO Auto Diff Performed NOT REPORTED Normal [facility] Comment on above: Performed By: #### C DP, CRP, CP, TROPI, HCG, LD #### [facility] [address] [facility] [place] [address] Aged Or Disabled Care Worker: Christopher Dorsey DO Immature granulocytes (Bld) [#/Vol] NOT REPORTED Normal 0 [facility] Comment on above: Performed By: #### C DP, CRP, CP, TROPI, HCG, LD #### [facility] [address] [place] [address] Aged Or Disabled Care Worker: Christopher Dorsey DO NRBC Automated NOT REPORTED Normal [facility] Comment on above: Performed By: #### C DP, CRP, CP, TROPI, HCG, LD #### [facility] [address] [facility] [place] [address] Aged Or Disabled Care Worker: Christopher Dorsey DO Platelets (Bld) [#/Vol] NOT REPORTED Normal [facility] Comment on above: Performed By: #### C DP, CRP, CP, TROPI, HCG, LD #### [facility] [address] [facility] [place] [address] Aged Or Disabled Care Worker: Christopher Dorsey DO RBC morphology finding Nom (Bld) NOT REPORTED Normal [facility] Comment on above: Performed By: #### C DP, CRP, CP, TROPI, HCG, LD #### [facility] [address] [facility] [place] [address] Aged Or Disabled Care Worker: Christopher Dorsey DO WBC Morphology NOT REPORTED Normal [facility] Comment on above: Performed By: #### C DP, CRP, CP, TROPI, HCG, LD #### [facility] [address] [facility] [place] [address] Aged Or Disabled Care Worker: Christopher Dorsey DO Comp Metabolic Profon 2019 Bilirubin Ql (U) <0.15 Low 0.3-1.2 [facility] Comment on above: Performed By: #### C DP, CRP, CP, TROPI, HCG, LD #### [facility] [address] [facility] [place] [address] Aged Or Disabled Care Worker: Christopher Dorsey DO (cont.) Normal [facility] Comment on above: Result Comment: Aver age GFR for 30-39 years old: 107 mL/min/1.73sq m Chronic Kidney Disease: <60 mL/min/1.73sq m Kidney failure: <15 mL/min/1.73sq m eGFR calculated using average adult body mass. Additional eGFR calculator available at: http://www.[employer].com/multiple_crcl_2012.htm Performed By: #### C DP, CRP, CP, TROPI, HCG, LD #### [facility] [address] [facility] [place] [address] Aged Or Disabled Care Worker: Christopher Dorsey DO Albumin [Mass/Vol] 3.7 g/dL Normal 3.5-5.2 [facility] Comment on above: Performed By: #### C DP, CRP, CP, TROPI, HCG, LD #### [facility] [address] [place] [address] Aged Or Disabled Care Worker: Christopher Dorsey DO Alkaline Phos 67 U/L Normal 35-104 [facility] Comment on above: Performed By: #### C DP, CRP, CP, TROPI, HCG, LD #### [facility] [address] [place] [address] Aged Or Disabled Care Worker: Christopher Dorsey DO ALT [Catalytic activity/Vol] 12 U/L Normal 5-33 [facility] Comment on above: Performed By: #### C DP, CRP, CP, TROPI, HCG, LD #### [facility] [address] [facility] [place] [address] Aged Or Disabled Care Worker: Christopher Dorsey DO Anion gap [Moles/Vol] 12 mmol/L Normal 9-17 [facility] Comment on above: Performed By: #### C DP, CRP, CP, TROPI, HCG, LD #### [facility] [address] [facility] [place] [address] Aged Or Disabled Care Worker: Christopher Dorsey DO AST [Catalytic activity/Vol] 13 U/L Normal <32 [facility] Comment on above: Performed By: #### C DP, CRP, CP, TROPI, HCG, LD #### [facility] [address] [facility] [place] [address] Aged Or Disabled Care Worker: Christopher Dorsey DO Calcium [Mass/Vol] 8.7 mg/dL Normal 8.6-10.4 [facility] Comment on above: Performed By: #### C DP, CRP, CP, TROPI, HCG, LD #### [facility] [address] [place] [address] Aged Or Disabled Care Worker: Christopher Dorsey DO Chloride [Moles/Vol] 110 mmol/L High 98-107 [facility] Comment on above: Performed By: #### C DP, CRP, CP, TROPI, HCG, LD #### [facility] [address] [place] [address] Aged Or Disabled Care Worker: Christopher Dorsey DO CO2 [Moles/Vol] 18 mmol/L Low 20-31 [facility] Comment on above: Performed By: #### C DP, CRP, CP, TROPI, HCG, LD #### [facility] [address] [place] [address] Aged Or Disabled Care Worker: Christopher Dorsey DO Creatinine [Mass/Vol] 0.62 mg/dL Normal 0.50-0.90 [facility] Comment on above: Performed By: #### C DP, CRP, CP, TROPI, HCG, LD #### [facility] [address] [place] [address] Aged Or Disabled Care Worker: Christopher Dorsey DO GFR, Amer >60 Normal >60 [facility] Comment on above: Performed By: #### C DP, CRP, CP, TROPI, HCG, LD #### [facility] [address] [place] [facility] [place] [address] Aged Or Disabled Care Worker: Christopher Dorsey DO GFR,non Amer >60 Normal >60 [facility] Comment on above: Performed By: #### C DP, CRP, CP, TROPI, HCG, LD #### [facility] [address] [place] [address] Aged Or Disabled Care Worker: Christopher Dorsey DO Glucose [Mass/Vol] 84 mg/dL Normal 70-99 [facility] Comment on above: Performed By: #### C DP, CRP, CP, TROPI, HCG, LD #### [facility] [address] [facility] [place] [address] Aged Or Disabled Care Worker: Christopher Dorsey DO Potassium [Moles/Vol] 3.9 mmol/L Normal 3.7-5.3 [facility] Comment on above: Performed By: #### C DP, CRP, CP, TROPI, HCG, LD #### [facility] [address] [facility] [place] [address] Aged Or Disabled Care Worker: Christopher Dorsey DO Protein [Mass/Vol] 6.3 g/dL Low 6.4-8.3 [facility] Comment on above: Performed By: #### C DP, CRP, CP, TROPI, HCG, LD #### [facility] [address] [facility] [place] [address] Aged Or Disabled Care Worker: Christopher Dorsey DO Sodium [Moles/Vol] 140 mmol/L Normal 135-144 [facility] Comment on above: Performed By: #### C DP, CRP, CP, TROPI, HCG, LD #### [facility] [address] [facility] [place] [address] Aged Or Disabled Care Worker: Christopher Dorsey DO Urea nitrogen [Mass/Vol] 11 mg/dL Normal 6-20 [facility] Comment on above: Performed By: #### C DP, CRP, CP, TROPI, HCG, LD #### [facility] [address] [facility] [place] [address] Aged Or Disabled Care Worker: Christopher Dorsey DO Albumin/Globulin [Mass ratio] NOT REPORTED Normal 1.0-2.5 [facility] Comment on above: Performed By: #### C DP, CRP, CP, TROPI, HCG, LD #### [facility] [address] [facility] [place] [address] Aged Or Disabled Care Worker: Christopher Dorsey DO BUN/CRE Ratio NOT REPORTED Normal 9-20 [facility] Comment on above: Performed By: #### C DP, CRP, CP, TROPI, HCG, LD #### [facility] [address] [facility] [place] [address] Aged Or Disabled Care Worker: Christopher Dorsey DO Staging: NOT REPORTED Normal [facility] Comment on above: Performed By: #### C DP, CRP, CP, TROPI, HCG, LD #### [facility] [address] [facility] [place] [address] Aged Or Disabled Care Worker: Christopher Dorsey DO Comprehensive Metabolic Pane [facility] 03-01-2020 Albumin [Mass/Vol] 3.7 g/dL 3.5 - 5.2 g/dL [place] Albumin/Globulin [Mass ratio] NOT REPORTED [place] ALP [Catalytic activity/Vol] 67 U/L 35 - 104 U/L [place] ALT [Catalytic activity/Vol] 12 U/L 5 - 33 U/L [place] Anion gap [Moles/Vol] 12 mmol/L 9 - 17 mmol/L [place] AST [Catalytic activity/Vol] 13 U/L <32 [place] Bilirubin Ql (U) <0.15 Low 0.3 - 1.2 mg/dL [place] Bun/Cre Ratio NOT REPORTED [place] Calcium [Mass/Vol] 8.7 mg/dL 8.6 - 10. 4 mg/dL [place] Chloride [Moles/Vol] 110 mmol/L High 98 - 10 7 mmol/L [place] CO2 [Moles/Vol] 18 mmol/L Low 20 - 31 mmol/L [place] Creatinine [Mass/Vol] 0.62 mg/dL 0.5 - 0.9 mg/dL [place] GFR >60 >60 mL/min [place] GFR Non- >60 >60 mL/min [place] GFR/1.73 sq M predicted among non-blacks MDRD (S/P/Bld) [Vol rate/Area] NOT REPORTED [place] GFR/1.73 sq M predicted among non-blacks MDRD (S/P/Bld) [Vol rate/Area] [place] Comment on above: Average GFR for 30-3 9 years old: 107 mL/min/1.73sq m Chronic Kidney Disease: <60 mL/min/1.73sq m Kidney failure: <15 mL/min/1.73sq m eGFR calculated using average adult body mass. Additional eGFR calculator available at: http://www.[employer]/multiple_crcl_2012.htm Glucose [Mass/Vol] 84 mg/dL 70 - 99 mg/dL [place] Interpretation and review of laboratory results Abnormal [place] Potassium [Moles/Vol] 3.9 mmol/L 3.7 - 5.3 mmol/L [place] Protein [Mass/Vol] 6.3 g/dL Low 6.4 - 8.3 g/dL [place] Sodium [Moles/Vol] 140 mmol/L 135 - 144 mmol/L [place] Urea nitrogen [Mass/Vol] 11 mg/dL 6 - 20 mg/dL [place] HCG Screen, Bloodon 03-01-20 20 HCG Qn Negative Normal NEG [facility] Comment on above: Result Comment: Spec [...] DP, CRP, CP, TROPI, HCG, LD #### [facility] [address] [place] [address] Aged Or Disabled Care Worker: Christopher Dorsey, DO hCG Qual Negative NEGATIVE [place] Comment on above: Specimens with hCG [...] Interpretation and review of laboratory results Abnormal [place] LD 101 U/L Low 135 - 214 U/L [place] Lactate Dehydrogenaseon 02-04 LDH [Catalytic activity/Vol] 101 U/L Low 135-214 [facility] Comment on above: Performed By: #### C DP, CRP, CP, TROPI, HCG, LD #### [facility] [address] [facility] [place] [address] Aged Or Disabled Care Worker: Christopher Dorsey DO Otheron 03-01-2020 Immature granulocytes (Bld) [#/Vol] NOT REPORTED [place] Troponinon 03-01-2020 Troponin I.cardiac [Mass/Vol] ng/mL Normal 0-14 [facility] Comment on above: Result Comment: High Sensitivity Troponin values cannot be compared with other Troponin methodologies. Patients with high levels of Biotin oral intake (i.e >5mg/day) may have falsely decreased Troponin levels. Samples collected within 8 hours of biotin intake may require additional information for diagnosis. Performed By: #### T ROPI #### [facility] [address] [facility] [place] [address] Aged Or Disabled Care Worker: Christopher Dorsey DO Troponin I.cardiac [Mass/Vol] NOT REPORTED Normal <0.03 [facility] Comment on above: Performed By: #### T ROPI #### [facility] [address] [facility] [place] [address] Aged Or Disabled Care Worker: Christopher Dorsey DO Troponin I.cardiac [Mass/Vol] ng/mL Normal 0-14 [facility] Comment on above: Result Comment: High Sensitivity Troponin values cannot be compared with other Troponin methodologies. Patients with high levels of Biotin oral intake (i.e >5mg/day) may have falsely decreased Troponin levels. Samples collected within 8 hours of biotin intake may require additional information for diagnosis. Performed By: #### C DP, CRP, CP, TROPI, HCG, LD #### [facility] [address] [facility] [place] [address] Aged Or Disabled Care Worker: Christopher Dorsey DO Troponin I.cardiac [Mass/Vol] NOT REPORTED [place] Troponin T.cardiac [Mass/Vol] NOT REPORTED <0.03 ng/mL [place] Troponin, High Sensitivity <6 0 - 14 ng/L [place] Comment on above: High Sensitivity Troponin values cannot be compared with other Troponin methodologies. Patients with high levels of Biotin oral intake (i.e >5mg/day) may have falsely decreased Troponin levels. Samples collected within 8 hours of biotin intake may require additional information for diagnosis. Troponin I.cardiac [Mass/Vol] NOT REPORTED Normal [facility] Comment on above: Performed By: #### C DP, CRP, CP, TROPI, HCG, LD #### [facility] [address] [facility] [place] [address] Aged Or Disabled Care Worker: Christopher Dorsey DO Troponin I.cardiac [Mass/Vol] NOT REPORTED [place] Troponin T.cardiac [Mass/Vol] NOT REPORTED <0.03 ng/mL [place] Troponin, High Sensitivity <6 0 - 14 ng/L [place] Comment on above: High Sensitivity Troponin [...] Wilfredo Andrade MD 03/01/20 Final result Normal [facility] No acute cardiopulmonary process. [place], [facility] Incoming Radiant Results From [facility] - 03/01/2020 10:19 AM EDT EXAMINATION: ONE [...] osseous abnormality. IMPRESSION: No acute cardiopulmonary process. [place] EXAMINATION: ONE XRA Y VIEW OF [...] unremarkable. There is no acute osseous abnormality. [place] Vital Signs Date Time Vital Sign Value Performing Clinician Facility 07-25-2024 14:32-0500 Body height 162.6 cm Saloni GREER Work Phone: [facility] 07-25-2024 14:32-0500 Body mass index (BMI) [Ratio] 36.9 kg/m2 Saloni GREER Work Phone: [facility] 07-25-2024 14:32-0500 Body weight 97.52 kg Saloni GREER Work Phone: [facility] 07-25-2024 14:32-0500 Diastolic blood pressure 86 mm[Hg] Saloni GREER Work Phone: [facility] 07-25-2024 14:32-0500 Heart rate 84 /min Saloni Hill PA Work Phone: [facility] 07-25-2024 14:32-0500 Respiratory rate 16 /min Saloni Piper PA Work Phone: [facility] 07-25-2024 14:32-0500 SaO2% (BldA) [Mass fraction] 97 % Saloni Piper PA Work Phone: [facility] 07-25-2024 14:32-0500 Systolic blood pressure 132 mm[Hg] Saloni Piper PA Work Phone: [facility] 03-01-2024 09:42-0400 Diastolic blood pressure 78 mm[Hg] OMKAR Olea Liz Work Phone: [facility] 03-01-2024 09:42-0400 Heart rate 88 /min OMKAR Olea Liz Work Phone: [facility] 03-01-2024 09:42-0400 Respiratory rate 20 /min OMKAR Olea Liz Work Phone: [facility] 03-01-2024 09:42-0400 SaO2% (BldA) [Mass fraction] 97 % OMKAR Olea Liz Work Phone: [facility] 03-01-2024 09:42-0400 Systolic blood pressure 117 mm[Hg] OMKAR Olea Liz Work Phone: [facility] 03-01-2024 09:41-0400 Body height 162.56 cm OMKAR Olea Liz Work Phone: [facility] 03-01-2024 09:41-0400 Body weight 95.25 kg OMKAR Olea Liz Work Phone: [facility] 02-22-2024 13:17-0400 Body height 162.56 cm [facility] 02-22-2024 13:17-0400 Body mass index (BMI) [Ratio] 36.6 kg/m2 [facility] 02-22-2024 13:17-0400 Body weight 96.78 kg [facility] 02-22-2024 13:17-0400 Diastolic blood pressure 78 mm[Hg] [facility] 02-22-2024 13:17-0400 Heart rate 71 /min [facility] 02-22-2024 13:17-0400 Respiratory rate 18 /min [facility] 02-22-2024 13:17-0400 SaO2% (BldA) [Mass fraction] 98 % [facility] 02-22-2024 13:17-0400 Systolic blood pressure 116 mm[Hg] [facility] 03-01-2020 12:15-0400 BP Diastolic 57 mm[Hg] [facility] [place] 03-01-2020 12:15-0400 BP Systolic 98 mm[Hg] [facility] [place] 03-01-2020 12:15-0400 Pulse (Heart Rate) 61 /min [facility] [place] 03-01-2020 12:15-0400 Pulse Oximetry 100 % [facility] [place] 03-01-2020 12:15-0400 Respiratory Rate 14 /min [facility] [employer] [place] 03-01-2020 09:00-0400 BMI (Body Mass Index) 31.76 kg/m2 [facility] [facility], [place] 03-01-2020 09:00-0400 Body Temperature 97.9 [degF] [facility] [employer] [place] 03-01-2020 09:00-0400 Body weight 83.92 kg [facility] 03-01-2020 09:00-0400 Height 162.6 cm [facility] [place] Encounters Encounter Date Encounter Type Care Provider Facility Start: 07-25-2024 End: 07-25-2024 Office outpatient visit 25 minutes Saloni GREER Work Phone: [facility] Comment on above: Migraine without aur a and without status migrainosus, not intractable (CMS/HCC) (Primary Dx); Paresthesia; Hyper reflexia; Vision changes; Muscle cramps Start: 07-25-2024 End: 07-25-2024 ambulatory SALONI PIPER Not Available Start: 07-25-2024 End: 07-25-2024 Bamboo flowsheet Saloni GREER Work Phone: [facility] Start: 07-25-2024 End: 07-25-2024 Bamboo flowsheet Saloni Piper PA Work Phone: [facility] Start: 07-03-2024 End: 07-03-2024 Bamboo flowsheet Louie Smart MD Work Phone: [facility] [facility] Start: 07-03-2024 End: 07-03-2024 Bamboo flowsheet Louie Smart MD Work Phone: [facility] [facility] Start: 07-03-2024 End: 07-03-2024 ambulatory LOUIE SMART Not Available Start: 04-10-2024 End: 04-10-2024 ambulatory SALONI PIPER Not Available Start: 03-14-2024 End: 03-22-2024 Pre-admission assessment SALONI PIPER [facility] Start: 03-14-2024 End: 03-14-2024 ambulatory SALONI PIPER Not Available Start: 03-01-2024 End: 03-01-2024 Patient encounter procedure OMKAR Hill Work Phone: [facility] Main Warden Work Phone: Start: 03-01-2024 End: 03-01-2024 ambulatory OMKAR Hill Work Phone: [facility] Work Phone: Start: 02-22-2024 End: 02-22-2024 ambulatory [facility] Work Phone: Start: 02-22-2024 End: 02-22-2024 Patient encounter procedure [facility] Work Phone: Start: 01-18-2024 End: 01-18-2024 ambulatory SALONI PIPER Not Available Start: 12-29-2023 End: 12-29-2023 ambulatory LOUIE BING Not Available Start: 01-19-2023 ambulatory [facility] Facility:H1 Start: 01-11-2023 End: 01-11-2023 ambulatory [facility] Facility:H1 Start: 12-29-2022 ambulatory Jimmie Crawford [facility] Start: 12-18-2022 End: 12-18-2022 ambulatory [facility] Facility:H1 Start: 11-12-2022 End: 11-13-2022 ambulatory [facility] Facility:H1 Start: 11-02-2022 End: 11-02-2022 ambulatory [facility] Facility:H1 Start: 10-22-2022 End: 10-22-2022 ambulatory [facility] Facility:H1 Start: 09-06-2022 End: 09-06-2022 ambulatory GLENN JIN Facility:H1 Start: 08-05-2022 End: 08-05-2022 ambulatory Mukund Rodriguez Other [employer] Other Start: 08-05-2022 Telephone encounter Mukund Rodriguez [facility] Start: 06-28-2022 End: 06-28-2022 ambulatory NON STAFF [facility] Work Phone: Start: 06-28-2022 End: 06-28-2022 Patient encounter procedure MD Mukund Rodriguez Work Phone: [facility] Start: 06-18-2022 End: 06-18-2022 ambulatory Christopher Mendez Other [employer] Other Start: 06-18-2022 Telephone encounter Christopher Law ck [facility] Start: 05-17-2022 End: 05-17-2022 ambulatory [facility] Facility:H1 Start: 05-05-2022 End: 05-06-2022 ambulatory MUKUND RODRIGUEZ Facility:H1 Start: 05-04-2022 End: 05-04-2022 ambulatory Radha Arciniega Other [employer] Other Start: 05-04-2022 Office outpatient vi sit 15 minutes Radha Arciniega [facility] Start: 04-26-2022 End: 04-26-2022 ambulatory Mukund Rodriguez Other [employer] Other Start: 04-26-2022 Office outpatient vi sit 15 minutes Mukund Rodriguez [facility] Start: 04-20-2022 End: 04-20-2022 Patient encounter procedure MD Mukund Rodriguez Work Phone: [facility] [address] Start: 04-16-2022 End: 04-16-2022 ambulatory [facility] Facility:H1 Start: 04-15-2022 Encounter for preprocedural laboratory examination DR CHARLES MARRERO . [facility] Start: 04-13-2022 End: 04-14-2022 Encounter for preprocedural laboratory examination [facility] Facility: Start: 04-13-2022 End: 04-14-2022 ambulatory [facility] Facility:H1 Start: 04-12-2022 End: 04-12-2022 ambulatory Mukund Rodriguez Other [employer] Other Start: 04-12-2022 Telephone encounter Mukund Rodriguez [facility] Start: 03-23-2022 End: 03-23-2022 [facility] Facility:H1 Start: 03-19-2022 [facility] Facility:H1 Start: 03-08-2022 End: 03-08-2022 ambulatory [facility] Facility:H1 Start: 03-01-2022 End: 03-01-2022 ambulatory Mukund Olexa Other [employer] Other Start: 03-01-2022 Office outpatient ne w 45 minutes Mukund Rodriguez [facility] Start: 02-27-2022 End: 02-28-2022 ambulatory [facility] Facility:H1 Start: 02-23-2022 End: 02-23-2022 [facility] Facility:H1 Start: 03-01-2020 End: 03-01-2020 Emergency department patient visit [facility] Start: 03-01-2020 End: 03-01-2020 Emergency department patient visit Princess Hoyt Work Phone: [facility] ED Comment on above: Bronchitis [...] Phone: Start: 03-01-2020 Assay of troponin quantitative PRICNESS HOYT Start: 03-01-2020 Radiologic exam ches t [...] 03-01-2020 Blood count complete auto&auto difrntl wbc Princses Hoyt Work Phone: Start: 03-01-2020 C-reactive protein Poncho s Chanel Work Phone: Start: 03-01-2020 Comprehensive metabo lic panel Princess Hoyt Work Phone: Start: 03-01-2020 Gonadotropin chorion ic qualitative Princess Hoyt Work Phone: Start: 03-01-2020 Lactate dehydrogenase ldh Princess Hoyt Work Phone: Plan of Treatment Date Care Activity Detail Author Start: 10-10-2024 End: 10-10-2024 Patient encounter procedure 10/10/2024 12:00 PM EST Office Visit [facility] [address] [address] [place] [address] Sherita Rodriguez PA [address] [place] [address] [facility] Start: 07-26-2024 End: 07-26-2025 MISCELLANEOUS REFERRAL MISCELLANEOUS REFERRAL Lab Routine Paresthesia Expected: 07/26/2024 (Approximate), Expires: 07/26/2025 [facility] Comment on above: Expected: 07/26/2024 (Approximate), Expires: 07/26/2025 Start: 07-25-2024 End: 07-25-2024 Patient encounter procedure 07/25/2024 2:40 PM EST Office Visit [facility] [address] [place] [address] Saloni Piper PA [address] [place], [place] [id number] [facility] Comment on above: Arrived Start: 07-25-2024 End: 07-25-2025 Aldolase Aldolase Lab Routine Muscle cramps Expected: 07/25/2024 (Approximate), Expires: 07/25/2025 [facility] Comment on above: Expected: 07/25/2024 (Approximate), Expires: 07/25/2025 Start: 07-25-2024 End: 07-25-2025 Cobalamin (Vitamin B12) [Mass/volume] in Serum or Plasma Vitamin B12 Lab Routine Paresthesia Muscle cramps Expected: 07/25/2024 (Approximate), Expires: 07/25/2025 [facility] Comment on above: Expected: 07/25/2024 (Approximate), Expires: 07/25/2025 Start: 07-25-2024 End: 07-25-2025 Creatine kinase [Enzymatic activity/volume] in Serum or Plasma CK Lab Routine Muscle cramps Expected: 07/25/2024 (Approximate), Expires: 07/25/2025 [facility] Work Phone: Comment on above: Expected: 07/25/2024 (Approximate), Expires: 07/25/2025 Start: 07-25-2024 End: 07-25-2025 Folate [Mass/volume] in Serum or Plasma Folate Lab Routine Paresthesia Muscle cramps Expected: 07/25/2024 (Approximate), Expires: 07/25/2025 [facility] Comment on above: Expected: 07/25/2024 (Approximate), Expires: 07/25/2025 Start: 07-25-2024 End: 07-25-2025 Methylmalonate [Moles/volume] in Serum or Plasma Methylmalonic acid, serum Lab Routine Paresthesia Muscle cramps Expected: 07/25/2024 (Approximate), Expires: 07/25/2025 [facility] Comment on above: Expected: 07/25/2024 (Approximate), Expires: 07/25/2025 Start: 07-25-2024 End: 07-25-2025 Myoglobin, serum Myoglobin, serum Lab Routine Muscle cramps Expected: 07/25/2024 (Approximate), Expires: 07/25/2025 [facility] Comment on above: Expected: 07/25/2024 (Approximate), Expires: 07/25/2025 Start: 07-25-2024 End: 07-25-2025 Visual evoked potential test Visual evoked potential test Neurology Routine Vision changes Expected: 07/25/2024 (Approximate), Expires: 07/25/2025 [facility] Comment on above: Expected: 07/25/2024 (Approximate), Expires: 07/25/2025 Start: 07-03-2024 End: 07-03-2024 Patient encounter procedure 07/03/2024 9:30 AM EDT Procedure Visit [facility] [facility] [place] [id number] Louie Smart MD [address] [place] [address] [facility] [address] Comment on above: Arrived Start: 05-06-2024 Influenza vaccination Influenza Vacc ine (#1) [facility] Start: 05-06-2020 Influenza vaccination Flu vacc ine (Season Ended) [place], [place] Start: 2014 Screening for malign ant neoplasm of cervix [facility] Start: 2005 Screening for malign ant neoplasm of cervix [facility] Start: 2003 DTaP/Tdap/Td vaccine (1 - Tdap) DTaP/Tdap/Td vaccine (1 - Tdap) [place], [place] Start: 1999 HIV screening HIV screen [place], [place] Start: 1990 Pneumococcal 0-64 ye ars Vaccine (1 of 1 - PPSV23) Pneumococcal 0-64 years Vaccine (1 of 1 - PPSV23) [place] Start: 1985 Varicella vaccine (1 of 2 - 2-dose childhood series) Varicella vaccine (1 of 2 - 2-dose childhood series) [place] EKG 12 Lead EKG 12 Lead ECG STAT 03/01/2020 9:20 AM EDT [place] Payers Date Payer Category Payer Private Health Insurance [employer] [place] [employer] [id number] 2020 Medicaid [facility] [place] [facility] [place] [employer] xxxxxxxxxxxx 2020-Present [phone] [address] [address] [place] [address] xxxxxxxxxxxx [id number] 1984 Unknown [id number] 2.16.840.1.755735.3.579. 2.176 1984 Unknown [id number] 2.16.840.1.497989.3.579. 2.593 1984 Unknown [id number] 2.16.840.1.271117.3.579. 2.593 1984 Unknown [id number] 2.16.840.1.971998.3.579. 2.593 1984 Unknown [id number] 2.16.840.1.236723.3.579. 2.593 1984 Unknown [id number] 2.16.840.1.619161.3.579. 2.593 1984 Unknown [id number] 2.16.840.1.597861.3.579. 2.593 1984 Unknown [id number] 2.16.840.1.676198.3.579. 2.593 1984 Unknown [id number] 2.16.840.1.933478.3.579. 2.593 1984 Unknown [id number] 2.16.840.1.238589.3.579. 2.593 1984 Unknown [id number] 2.16.840.1.894725.3.579. 2.593 1984 Unknown [id number] 2.16.840.1.187410.3.579. 2.593 1984 Unknown [id number] 2.16.840.1.643583.3.579. 2.593 1984 Unknown [id number] 2.16.840.1.928243.3.579. 2.593 1984 Unknown [id number] 2.16.840.1.348360.3.579. 2.593 1984 Unknown [id number] 2.16.840.1.563951.3.579. 2.593 1984 Unknown [id number] 2.16.840.1.360902.3.579. 2.593 1984 Unknown [id number] 2.16.840.1.710006.3.579. 2.593 1984 Unknown [id number] 2.16.840.1.869540.3.579. 2.1259 1984 Unknown [id number] 2.16.840.1.809327.3.579. 2.1259 1984 Unknown [id number] 2.16.840.1.796730.3.579. 2.1259 1984 Unknown [id number] 2.16.840.1.652736.3.579. 2.1259 1984 Unknown [id number] 2.16.840.1.755305.3.579. 2.1259 1984 Unknown [id number] 2.16.840.1.111357.3.579. 2.1259 1959 Medicaid [id number] 1959 Self-pay 1959 Unknown [id number] 2.16.840.1.839955.19 1959 Unknown [id number] 1959 Unknown [id number] Unknown [id number] 2.16.840.1.829572.19 Unknown [id number] 2.16.840.1.480128.19 Unknown [id number] 2.16.840.1.520848.3.579. 2.531 Worker's Compensation [employer] [facility] [id number] Worker's Compensation [facility] [id number] Social History Date Type Detail Facility Start: 09-05-1997 End: 03-14-2024 Tobacco smoking status DEIS Current every day smoker [facility] Start: 09-05-1997 History of tobacco use Cigarette Smo ker [place] Start: 03-01-2020 Alcohol intake Ex-drinker (finding) [place] Start: 1985 Sex Assigned At Not on file M [place], [place] Exposure to SARS-CoV -2 (event) Unable to assess [place] Start: 04-10-2024 End: 07-25-2024 Sex Assigned At [facility] Start: 1985 Sex Assigned At Female F [facility] Start: 02-22-2024 Tobacco smoking stat us [facility] Smoker (finding) [facility] Tobacco smoking status No Smokin g Status Entered [facility] Start: 03-14-2024 End: 07-25-2024 Cigarettes smoked current (pack per day) - Reported 0.5 [facility] Start: 03-14-2024 Tobacco use and exposure Smokeless tobacco non-user [facility] Start: 04-10-2024 End: 07-25-2024 Alcoholic beverage intake Lifetime non-drinker (finding) [facility] Start: 12-29-2023 Tobacco Comment Smokes 5 mins after waking up [facility] Start: 12-29-2023 Alcohol Comment caffeine: daily [facility] Clinical Notes 03-01-2022 to 07-25-2024 PERCY Hennessy - 07/25/2024 2:40 PM EST Note Date & Type Note Facility 07-25-2024 History of Presen t illness Narrative Subjective Lilly Beckham is a 38 year old female Chief Complaint Patient presents with Migraine Past Medical History: Diagnosis Date Anxiety Asthma (CMS/HCC) Bipolar 1 disorder (CMS/HCC) Borderline personality disorder in adult (CMS/HCC) Class 2 obesity COPD (chronic obstructive pulmonary disease) (CMS/HCC) Depression, controlled (CMS/HCC) Eating disorder (CMS/HCC) GERD (gastroesophageal reflux disease) Insomnia Post-traumatic stress (CMS/HCC) Past Surgical History: Procedure Laterality Date APPENDECTOMY SECTION, LOW TRANSVERSE x2 CHOLECYSTECTOMY TUBAL LIGATION Family History Problem Relation Name Age of Onset Depression Mother Migraines Mother Seizures Mother Heart disease Father Depression Father Migraines Father Social History Tobacco Use Smoking status: Every Day Current packs/day: 0.50 Average packs/day: 0.5 packs/day for 26.9 years (13.4 ttl pk-yrs) Types: Cigarettes Start date: 09/05/1997 Smokeless tobacco: Never Tobacco comments: Smokes 5 mins after waking up Substance Use Topics Alcohol use: Never Comment: caffeine: daily HPI MIGRAINES -has not had visual evokes done -on trileptal -increased at last visit and started Qulipta -Qulipta was denied by insurance -migraines have been off and on -state she can keep them under control -reports 2-3 a week -duration and severity has decreased -located behind the eyes and left side of head -described as sharp and numb -admits light and sound sensitivity -admits nausea and vomiting -admits some auras and double vision with bad migraines -does not sleep well at night -averages 2 hours a night -does not wake in the morning feeling rested PARESTHESIA -EMG to review -numbness, tingling, shooting pains located on left side of body -reports symptoms improved for a few weeks -states she now has itching all over and muscle spasms and cramps and tightening in BLE -described as aching and electrical shocks -interrupting her sleep, unable to get comfortable -states her legs will just jerk out of nowhere -admits to imbalance -ambulates with cane -denies any recent falls APHASIA -word finding difficulties are the same, no worsening -has started losing track of what she is saying during conversation -occurs with migraines -states she always kind of has a fog that's always present ROS Review of Systems Constitutional: Negative for activity change and unexpected weight change. Eyes: Positive for pain and visual disturbance. Respiratory: Negative. Negative for chest tightness. Genitourinary: Negative for frequency and urgency. Musculoskeletal: Positive for arthralgias and myalgias. Skin: Negative for color change and pallor. Neurological: Positive for speech difficulty and numbness. Psychiatric/Behavioral: Positive for sleep disturbance. Objective Visit Vitals BP 132/86 Pulse 84 Resp 16 Ht 5' 4 Wt 215 lb SpO2 97% BMI 36.90 kg/m Smoking Status Every Day BSA 2.1 m Neurological Exam Mental Status Awake, alert and oriented to person, place and time. Oriented to person, place and time. Speech is normal. Language is fluent with no aphasia. Attention and concentration are normal. Cranial Nerves CN II: Visual acuity is normal. Visual lopez full to confrontation. CN III, IV, : Extraocular movements intact bilaterally. Normal lids and orbits bilaterally. Pupils equal round and reactive to light bilaterally. CN V: Facial sensation is normal. CN VII: Full and symmetric facial movement. CN VIII: Hearing is normal. CN IX, X: Palate elevates symmetrically. Normal gag reflex. CN XI: Shoulder shrug strength is normal. CN XII: Tongue midline without atrophy or fasciculations. Motor Strength is 5/5 throughout all four extremities. Strength: Slight weakness in LUE when compared to the right. Sensory Light touch is normal in upper and lower extremities. Pinprick is normal in upper and lower extremities. Temperature is normal in upper and lower extremities. Reflexes Right Left Brachioradialis 2+ 2+ Biceps 2+ 2+ Patellar 2+ 2+ Achilles 2+ 2+ Right pathological reflexes: Crossed adductor present. Left pathological reflexes: Crossed adductor present. Positive finger flexors. Coordination Frnwns-ur-fcyz, rapid alternating movements and rmas-tf-roci normal bilaterally without dysmetria. Heart: Regular rate and rhythm Assessment and Plan Migraine Paresthesia Hyper reflexia Vision changes The patient is a 38 year old female who presents with headaches that have been occurring since childhood possibly due to migraine headaches, muscle tension headaches, complicated migraine, migraine variant, or chronic daily headache. Another consideration would be medication overuse headaches or rebound headaches due to increased use of OTC medications or chronic headaches secondary to an underlying sleep disorder. She is also experiencing paresthesia to the left side of the body, gait disturbance, brain fog, tightness in her thoracic spine described as a bear hug , bladder and vision changes that have been occurring for the past year with worsening over time. Possible etiologies include a demyelinating process such as multiple sclerosis, an intracranial process such as stroke. She had a brain MRI that revealed nonspecific white matter changes. Cervical and thoracic spine MRI revealed no cord signal changes. She did not schedule visual evoked potential x 3. She continues with migraines multiple times a week despite trileptal. She is on trazodone and trintellix, so will avoid additional antidepressants. She is also on lamictal, so will avoid additional anti-epileptic medications. Qulipta was denied by insurance. Imitrex and maxalt were ineffective for abortive therapy. BUE EMG was normal. Brain MRI with and without contrast 01/10/2024: revealed few scattered high signal intensity foci on T2/FLAIR in the white matter, which may relate to reported history of migraine headache. The differential less likely would include demyelinating or small vessel ischemic disease. There were approximately 5-6 lesions. Cervical spine MRI with and without contrast 03/01/2024: No abnormal postcontrast enhancement. It revealed left subarticular and foraminal disc protrusion contributing to moderate to severe left neural foraminal stenosis and minimal spinal canal narrowing at C3-C4. At C5-C6 there was a focal central disc protrusion contributing to mild spinal canal narrowing and no significant neural foraminal narrowing. At C6-C7 there was broad based disc bulge without joint spurring and facet hypertrophy contributing to mild bilateral neural foraminal narrowing and mild spinal canal narrowing. Thoracic spine MRI with and without contrast 03/01/2024: revealed mild degenerative changes noted at T7-T8, T8-T9, and T11-T12. No cord compression or cord signal abnormality. BUE EMG 07/03/2024: normal PLAN BUE EMG reviewed I will re order visual evoked potential I will order QSART I will order additional blood work to assess for metabolic process that may be contributing to her symptoms. Increase Trileptal 300mg to 1/2-1 tab PO QAM and 2 tabs PO at bedtime for headache prevention therapy and neuropathic pain Patient can trial magnesium 400mg PO at bedtime for migraine prevention therapy I counseled patient on potential medication side effects I will see the patient back in 4 weeks to review the diagnostic testing and make further recommendations based upon the above results and the patient's response to this therapeutic plan. I will see the patient sooner should she develop new symptoms, worsening symptoms, or side effects from medications. documented in this encounter [facility] 06-18-2022 Evaluation note Encounter Date Diagnosis Assessment Notes Jun, Dyspepsia (ICD-10 - R10.13) [employer] Other 08-30-2022 Evaluation note* Encounter Date Diagnosis Assessment Notes Treatment Notes Treatment Clinical Notes Apr, Sprain of other ligament of left knee, initial encounter (ICD-10 - S83.8X2A) [facility], patient approved for cortisone injections today. Risks and benefits discussed in detail with patient. Patient voiced understanding and agreed to proceed with treatment plan. We performed a 1/1cc marcaine / kenalog cortisone injection into the knee joint under sterile technique. Patient tolerated the injection well without adverse reaction. Patient to continue off work at this time. [employer] Other 08-22-2022 Evaluation note* Encounter Date Diagnosis [...] We will order formal physical therapy through [facility], as well as cortisone injection to decrease pain/inflammation. Patient to continue off work at this time. [employer] Other 08-12-2022 NoteOPERATIVE NOTE OPERATION DATE: 04/16/2022 PROCEDURE: Melina endometrial ablation with diagnostic laparoscopy. PREOPERATIVE DIAGNOSIS: Menorrhagia, dyspareunia. POSTOPERATIVE DIAGNOSIS: Menorrhagia, dyspareunia. ANESTHESIA: General. SURGEON: Charles Marrero D.O. TECHNICAL STAFF ASSISTANT: ANDIE Jason URINE OUTPUT: Yellow and clear. [...] to Recovery Room in stable condition. [id number] Evaluation note* Encounter Date Diagnosis Assessment Notes Treatment Notes Treatment Clinical Notes Apr, Sprain of other ligament of left knee, initial encounter (ICD-10 - S83.8X2A) [employer] Other 06-27-2022 Evaluation note* Encounter Date Diagnosis [...] MRI. Patient is to be off work [employer] Other Chief complaint+Reason for visit Narrative* Chief Complaint Self-Seymour Reason for Visit Dietary surveillance and counseling Obesity, Class II, BMI 35-39.9 PCOS (polycystic ovarian syndrome) [facility] Work Phone: Chief complaint+Reason for visit Narrative* Chief Complaint Self-Seymour r20.2 r29.2 Reason for Visit Dietary surveillance and counseling Obesity, Class II, BMI 35-39.9 PCOS (polycystic ovarian syndrome) [facility] Work Phone: Evaluation + Plan note No data available for this section [facility] information available [facility] Work Phone: Evaluation [facility]No [facility] [employer] Other Evaluation note* Diagnosis Onset Date Resolution Status Dietary surveillance and counseling acute Obesity, Class II, BMI 35-39.9 acute PCOS (polycystic ovarian syndrome) acute [facility] Work Phone: Evaluation note* Diagnosis Migraine without aura and without status migrainosus, not intractable (CMS/HCC)- Primary Paresthesia Disturbance of skin sensation Hyper reflexia Abnormal reflex Vision changes Muscle cramps [facility] - Reported* Type Description Date Medical History endometriosis Surgical History c-sections x2 Surgical History apendectomy Surgical History hernia removal Hospitalization History see above [employer] Other Hospital Discharge instructions No data available for this section [facility] No data available for this section [facility] Summary Purpose Family History No Family [...] FoundDocuments on File Type Date Recorded 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 * Bronchitis (Hungarian) documented in this encounter Assessments Diagnosis Bronchitis Bronchitis, not specified as acute or chronic Chief Complaint and Reason for Visit Chief Complaint s83.8x2a Dyspepsia Additional Source Comments INFORMATION SOURCE (unrecogn ized section and content) DATE CREATED AUTHOR 03/27/2020 [facility] DATE CREATED AUTHOR AUTHOR'S ORGANIZ ATION 12/31/2022 [facility] DATE CREATED AUTHOR AUTHOR'S ORGANIZ ATION 01/20/2023 [facility] DATE CREATED AUTHOR AUTHOR'S ORGANIZ ATION 03/11/2024 [facility] DATE CREATED AUTHOR AUTHOR'S ORGANIZ ATION 07/28/2024 [facility] EPIC Reason for Visit (unrecogniz ed section and content) Reason Comments Cough pt reports lung pain Abdominal Pain Headache Reason Comments Migraine Care Teams (unrecognized sec tion and content) [...] Team Status: Inactive Member Role Status Dates ROVERTO PosadaC Attending Provider Active Sta rt: March 01, 2024 End: March 01, 2024 Emmie Hill APRN Primary Care Provider Active Start: March 01, 2024 End: March 01, 2024 Research Chemical Engineer Relationship Specialty Start Date End Date Charles Marrero DO [address] [place] [address] Dr Devin Navarro, [place] [id number] PCP - [facility] 03/05/24 Research Chemical Engineer Relationship Specialty Start Date End Date Saloni Piper PA [address] [place] [id number] Physician Manager Of Selection And Assessment Neurology 07/25/24 Louie Smart MD [address] [place] [id number] Referring Physician Neurology 07/25/24 Research Chemical Engineer Relationship Specialty Start Date End Date Saloni Piper PA [address] [place] [id number] Physician Manager Of Selection And Assessment Neurology 07/25/24 Louie Smart MD [address] [place] [id number] Referring Physician Neurology 07/25/24 Goals (unrecognized section and content) Goals may [...] BE BASED ON THE PRIMARY CLINICAL RECORDS. [facility]. provides no warranty or guarantee of the accuracy or completeness of information in this document.
[2024-07-30 15:34] LABS: Creatine Kinase 45 U/L (26-192); Myoglobin 19 ng/mL (9-82)
[2024-07-31 04:07] LABS: Vitamin B12 633 pg/mL (232-1245)
[2024-07-31 14:09] LABS: Aldolase 3.9 U/L (3.3-10.3)
== END 2024-07-30 14:31 | disposition home or self-care (01) ==
LOC: LAB 14:31
PROVIDERS: PCP Nurse Practitioner; Visit Provider Physician Assistant
DX: R20.2 Paresthesia of skin (principal); R25.2 Cramp and spasm
CPT/HCPCS: 36415; 82085; 82550; 82607; 82746; 83874; 83921

== ENCOUNTER 2024-09-01 15:50 | Emergency (ER) | payer OTHER, SELFPAY ==
--- OUTSIDE RECORDS SUMMARY | 2024-09-01 15:55 | XMS_ITS | CCD ---
Author Organization [facility] Care Team Providers Care Electromechanic Name Role Phone PRINCESS BUCHANAN Attending Unavailable Unavailable Primary Care Provider UnavailMukund Silveira Unavailable Radha Arciniega Unavailable Christopher Mendoza Unavailable MD Mukund Baron Attending Provider NON STAFF Primary Care Provider UnavailMD Christopher Jacobson Attending Provider [phone] Jimmie Crawford DDS Attending Unavailable [facility] Unava ilable NEY, DR MARYURI Parker Admitting Unavailabl e REINECK, DR MARYURI Parker Consulting Unavailabl e NEY, DR MARYURI Parker Attending Unavailabl e [facility] Unava ilable MICHAELA ., KRISHNA Attending Unavailable MICHAELA ., KRISHNA Admitting Unavailable NICOL .PERCY Consulting Unavailabl e MICHAELA ., KRISHNA Consulting Unavailable [facility] Unava ilable LOW ESCALANTE Attending Unavailable LOW ESCALANTE Consulting Unavailable ZOLTAN ESCALANTEYL Admitting Unavailable [facility] Unava ilable LOW ESCALANTE Attending Unavailable LOW ESCALANTE Consulting Unavailable BORIS, LOW Admitting Unavailable [facility] Unava ilable AYLIN ., DR EVERETT Admitting Unavailable AYLIN ., DR EVERETT Attending Unavailable AYLIN ., DR EVERETT Consulting Unavailable [facility] Consulting Unava ilable [facility] Unava ilable AYLIN ., DR EVERETT Admitting Unavailable AYLIN ., DR EVERETT Attending Unavailable [facility] Unava ilable HAY ., DR FRIED Consulting Unavailable LOW ESCALANTE Admitting Unavailable LOW ESCALANTE Attending Unavailable [facility] Unava ilable DIAB ., RENA Attending Unavailable JUDY CONKLIN Consulting Unavailable DIAB ., RENA Admitting Unavailable DIAB ., RENA Consulting Unavailable [facility] Unava ilable GUILLE, DR RANJAN Joyce Admitting Unavailable GUILLE, DR RANJAN Joyce Attending Unavailable GUILLE, DR RANJAN Joyce Consulting Unavailable MARIAM SANCHEZ Consulting Unavailable [facility] Unava ilable AYLIN ., DR EVERETT Attending Unavailable AYLIN ., DR EVERETT Admitting Unavailable [facility] Unava ilable AYLIN ., DR EVERETT Admitting Unavailable AYLIN ., DR EVERETT Attending Unavailable AYLIN ., DR EVERETT Consulting Unavailable AGUBOSIM, AMOS Consulting Unavailable DORKOSKIE, TRACEY Consulting Unavailable [facility] Consulting Unava ilable GLENN JIN Attending Unavailable [facility] Unava ilable GLENN JIN Admitting Unavailable JOVANY, GIULIANO Consulting Unavailable GLENN JIN Consulting Unavailable MUKUND MASSEY Consulting Unavailable POLICARO, ESTHER Consulting Unavailable [facility] Unava ilable NADNORMA, DR DARIEN Silvestre Consulting Unavailable NADERER, DR DARIEN Silvestre Attending Unavailable NADERER, DR DARIEN Silvestre Admitting Unavailable HAY ., DR FRIED Consulting Unavailable KARLEEPRINCESS Consulting Unavailable .MEGAN DUGAN Consulting Unavailable OLEMUKUND DELACRUZ Attending Unavailable OLEXA, MUKUND Admitting Unavailable [facility] Unava ilable [facility] Unava ilable NEY, DR MARYURI Parker Attending Unavailabl e NEY, DR MARYURI Parker Admitting Unavailabl e NEY, DR MARYURI Parker Consulting Unavailabl ashley LIRIANO, DR LOUIE Joyce Consulting Unavailable [facility] Unava ilable NEY, DR MARYURI Parker Attending Unavailabl e NEY, DR MARYURI Parker Admitting Unavailabl e NEY, DR MARYURI Parker Consulting Unavailjuan m LYLE, DR SREE Peña Consulting Unavailable [facility] Unava ilable LOW ESCALANTE Attending Unavailable NICOL .PERCY Consulting UnavailLOW De Santiago Admitting Unavailable SREE MCCLENDON Consulting Unavailable PATRICIA Piper Attending Provider OMKAR [place] Primary Care Provider [phone] Saloni Piper Admitting Unavailable Saloni Piper Attending [facility] Judy SCHULTZ Primary Care Physician Charles Marrero DO Unavailable Saloni Barton Unavailable Louie Chavez MD Unavailable [phone] LUOIE CHAVEZ Attending Unavailable SALONI PIPER Attending Unavailable SALONI PIPER Attending Unavailable SALONI PIPER Attending Unavailable LOUIE CHAVEZ Attending Unavailable SALONI PIPER Attending Unavailable Unavailable Primary Care Provider UnavailPATRICIA Alexandra Referring Unavailable PATRICIA PIPER Attending PATRICIA Mejia Admitting Unavailable Allergies Allergy Classification Reported Allergen(s) Allergy Type Date of Onset Reaction(s) Facility Opioid Agonists (1 source) [facility] Allergy 4 [facility] Repository (8 sources) [facility] Drug Allergy 4 [facility] (1 source) fenta[facility]L Drug Allergy [facility] Repository Medications Current Medications Medication Drug Class(es) Dates Sig (Normalized) Sig (Original) Acetaminophen / oxyCODONE (2 sources) Opioid Agonist Percocet Active acetylcholine 10% solution - [facility] (1 source) Start: 07-31-2024 End: 08-01-2024 acetylcholine 10% solution - [facility] [id number] 200 actuat albuterol 0.09 mg/actuat metered dose [...] Start: 04-10-2024 take 2 tablets by mo uth at bedtime OXcarbazepine (Trileptal) 300 MG tablet [...] 10-22-2022 Episodic Other aftercare (1 source) Other customer contact specialist (current) drug therapy; Translations: [OTH ASSOCIATE DIRECTOR CAREER SERVICES CURRENT DRUG THERAPY] Onset: 12-21-2022 Episodic Other [...] Onset: 03-01-2024 Episodic Other nervous system disorders (8 sources) Paresthesia; Translations: [Paresthesia of skin] Onset: [...] Test Name Value Interpretation Reference Range Facility [facility] 08-20-[address] [facility] Telephone (BENJI) LILLY BECKHAM ([id number]) 1985 F Date Time Provider Department 08/20/24 EZEQUIEL CONKLIN During your visit today, we recorded the following information about you: Karen Long 08/20/2024 9:05 AM Signed Spoke with Lilly on 08/20 regarding testing and medication instructions. The medication(s) listed below will need to be stopped prior to Autonomic testing. Patient was instructed to contact their prescribing physician to ensure it is safe to discontinue the medication(s) and to receive the proper tapering instructions, if necessary. Patient instructed to not discontinue any medications without consulting their prescribing physician. [facility] recommended the following medication discontinuation lengths and instructions: Trazodone, Trintellix, for 48 hours prior to testing No Cannabidiol (CBD) oil or inhaled marijuana 7 days prior to testing No OVER THE COUNTER cold and cough medications, antihistamines, allergy medications, aspirin, or diuretics 48 hours prior to testing No alcohol 14 hours prior to testing No smoking/vaping or any form of nicotine 4 hours prior to testing No food or drinks that contain caffeine 4 hours prior to testing No lotion the day of testing Wear loose clothing in order to have arms and legs accessible for testing Bring your medications with you to take after the test, if necessary Allergies As of Date: 08/20/2024 (Not on File) Date Reviewed: Never Reviewed Reason for Visit: CALL - IMPORTANT AUTONOMIC TESTING INSTRUCTIONS FOR QSART [Other] Problem List As Of Date: 08/20/2024 (None) Encounter Status:Closed by KAREN LONG on 08/20/24 Normal [facility] MR cervical spine wo/w conon 03-01-2024 MR cervical spine wo/w con [facility] [place] [address] MRI Report Signed Patient: Lilly Beckham MR#: [id number] : 1985 Acct:[id number] Age/Sex: 38 / F ADM Date: 03/01/24 Loc: Room: Type: [facility] Attending Dr: Saloni Piper PA-C Copies [...] Ranjan Orourke M.D.03/01/2024 2:54 PM Dictation Location: [place] [address] Transcribed By: [facility] 03/01/24 0529 Dictated By: Ranjan Orourke II, MD 03/01/24 1448 Signed By: 03/01/24 1453 Normal [facility] MR thoracic spine wo/w yudi 03-01-2024 MR thoracic spine wo/w con [facility] [place] [address] MRI Report Signed Patient: Lilly Beckham MR#: [id number] : 1985 Acct:[id number] Age/Sex: 38 / F ADM Date: 03/01/24 Loc: Room: Type: [facility] Attending Dr: Saloni Piper PA-C Copies to: [...] Ranjan Orourke M.D.03/01/2024 3:19 PM Dictation Location: [place] [address] Transcribed By: [facility] 03/01/24 1519 Dictated By: Ranjan Orourke II, MD 03/01/24 151 Signed By: 03/01/24 151 Normal [facility] XR pre/post mri xrayon 03-01 XR pre/post mri xray [facility] Main [place] [address] [place] [address] XRay Report Signed Patient: Lilly Beckham MR#: [id number] : 1985 Acct:[id number] Age/Sex: 38 / F ADM Date: 03/01/24 Loc: Room: Type: [facility] Attending Dr: Saloni Piper PA-C Copies [...] Ranjan Orourke M.D.03/01/2024 3:31 PM Dictation Location: [place] [address] Transcribed By: [facility] 03/01/24 1531 Dictated By: Ranjan Orourke II, MD 03/01/24 1529 Signed By: 03/01/24 1531 Normal [facility] AMYLASEon 01-19-2023 Amylase [Catalytic activity/Vol] 39 U/L Normal 25-115 [facility] Comment on above: Performed By: #### A MY, LIPA, CMP ####[facility] [address] [place] [address]Dr. Nicky Simmons CBC AUTO DIFFon 01-19-2023 BASO # 0.1 103/ul Normal 0.0-0.1 [facility] Comment on above: Performed By: #### C BC ####[facility] [address] [place], [place] [address]Dr. Nicky Simmons Basophils/100 WBC (Bld) 0.5 % Normal 0.2-2.0 [facility] Comment on above: Performed By: #### C BC ####[facility] [address] [place], [place] [address]Dr. Nicky Simmons EO # 0.2 103/ul Normal 0.0-0.7 [facility] Comment on above: Performed By: #### C BC ####[facility] [address] [place], [place] [address]Dr. Nicky Simmons Eosinophils/100 WBC (Bld) 1.7 % Normal 0.9-7.0 [facility] Comment on above: Performed By: #### C BC ####[facility] [address] [place], [place] [address]Dr. Nicky Simmons Erythrocyte distribution width (RBC) [Ratio] 13.0 % Normal 11.0-15.0 [facility] Comment on above: Performed By: #### C BC ####[facility] [address] [place], [place] [address]Dr. Nicky Simmons Hematocrit (Bld) [Volume fraction] 39.9 % Normal 36.0-48.0 [facility] Comment on above: Performed By: #### C BC ####[facility] Nrfabqq[address]me35[address] [place] [id number]. Nicky Simmons Hemoglobin (Bld) [Mass/Vol] 13.2 g/dL Normal 12.0-16.0 [facility] Comment on above: Performed By: #### C BC ####[facility] [address]uez[address] [place] [id number]. Nicky Simmons IG # 0.05 10e3/ul Critically high 0.00-0.03 [facility] Comment on above: Performed By: #### C BC ####[facility] Humolcqxbn8720 [place] [id number]. Nicky Simmons IG % 0.5 % Normal 0.0-0.5 [facility] Comment on above: Performed By: #### C BC ####[facility] Mqsvwwjryy[address] [place] [address]Dr. Nicky Simmons LYMPH # 3.1 103/ul Normal 1.2-3.8 [facility] Comment on above: Performed By: #### C BC ####[facility] Jbrixdtfmp0572 [place] [id number]. Nicky Simmons Lymphocytes/100 WBC (Bld) 28.3 % Normal 20.5-60.0 [facility] Comment on above: Performed By: #### C BC ####[facility] Osvveiclix[address] [place] [id number]. Nicky Simmons MANUAL DIFF REQ NO Normal [facility] Comment on above: Performed By: #### C BC ####[facility] Csczpaltbh[address] [place] [id number]. Nicky Simmons MCH (RBC) [Entitic mass] 28.7 pg Normal 26.7-34.0 [facility] Comment on above: Performed By: #### C BC ####[facility] Zev[address]ydkpik[address] [place] [id number]. Nicky Simmons MCHC (RBC) [Mass/Vol] 33.1 g/dL Normal 29.9-35.2 [facility] Comment on above: Performed By: #### C BC ####[facility] Letztidsvz6097 [place] [id number]. Nicky Simmons MCV (RBC) [Entitic vol] 86.7 fL Normal 81.0-99.0 [facility] Comment on above: Performed By: #### C BC ####[facility] Sjykzdrhvs5799 [place] [id number]. Nicky Simmons MONO # 0.6 103/ul Normal 0.3-0.8 [facility] Comment on above: Performed By: #### C BC ####[facility] Jidhtwgzrg5660 [place] [id number]. Nicky Simmons Monocytes/100 WBC (Bld) 5.6 % Normal 1.7-12.0 [facility] Comment on above: Performed By: #### C BC ####[facility] [address] [place], [place] [address]Dr. Nicky Simmons NEUT # 7.0 103/ul Critically high 1.4-6.5 [facility] Comment on above: Performed By: #### C BC ####[facility] [address] [place], [place] [address]Dr. Nicky Simmons Neutrophils/100 WBC (Bld) 63.4 % Normal 43.0-75.0 [facility] Comment on above: Performed By: #### C BC ####[facility] [address] [place], [place] [address]Dr. Nicky Simmons Platelet mean volume (Bld) [Entitic vol] 9.0 fL Critically low 9.5-13.5 [facility] Comment on above: Performed By: #### C BC ####[facility] [address] [place], [place] [address]Dr. Nicky Simmons PLT 358 103/ul Normal 150-450 [facility] Comment on above: Performed By: #### C BC ####[facility] Zyplgfnxku[address] [place] [id number]. Nicky Simmons RBC 4.60 106/ul Normal 4.20-5.40 [facility] Comment on above: Performed By: #### C BC ####[facility] Xng[address]evq[address] [place], [place] [address]He. Nicky Simmons WBC 11.0 103/ul Normal 4.0-11.0 [facility] Comment on above: Performed By: #### C BC ####[facility] Snptrzbcwd[address] [place], [place] [address]. [address] ABD/PELV W CONon 01-20-20 [...] PRINCESS DESIR Date: 2023-01-19 13:26 Normal [facility] DRUG SCREEN RAPID (URINE)on 01-19-2023 AMP Negative Normal NEGATIVE [facility] Comment on above: Performed By: #### D RUGRPD ####[facility] [address]uts[address] [place], [place] [address]Wg. Nicky Troy BAR Negative Normal NEGATIVE [facility] Comment on above: Performed By: #### D RUGRPD ####[facility] Odgbmpabgl7489 [place], [place] [address]Mh. Nicky Troy BUP Negative Normal NEGATIVE [facility] Comment on above: Performed By: #### D RUGRPD ####[facility] [address] [place], [place] [address]Dr. Nicky Simmons BZO Negative Normal NEGATIVE [facility] Comment on above: Performed By: #### D RUGRPD ####[facility] Urm[address] [place], [place] [address]Dr. Nicky Simmons DON Negative Normal NEGATIVE [facility] Comment on above: Performed By: #### D RUGRPD ####[facility] [address] [place], [place] [address]Dr. Nicky Simmons CUT-OFFS SEE BELOW Normal [facility] Comment on above: Result Comment: AMP (Amphetamine): 500ng/mL, BAR (Barbituates): 200 ng/mL, BZO (Benzodiazepines): 150 ng/mL, BUP (Buprenorphine): 10 ng/mL, DON (Cocaine): 150 ng/mL, mAMP (Methamphetamine): 500 ng/mL, MTD (Methadone): 200 ng/mL, OPI (Opiates): 100 ng/mL, OXY (Oxycodone): 100 ng/mL, PCP (Phencyclidine): 25 ng/mL, PPX (Propoxyphene): 300 ng/mL, THC (Cannabinoids): 50 ng/mL, TCA (Trycyclic Antidepressants): 300 ng/mL Performed By: #### D RUGRPD ####[facility] [address] [place], [place] [address]Dr. Nicky Simmons DRUG CUT HEADER DRUG CLASS TEST SYSTEM CUT-OFF CONCENTRATIONS ARE FOLLOWS: Normal [facility] Comment on above: Performed By: #### D RUGRPD ####[facility] [address] [place], [place] [address]Dr. Nicky Simmons mAMP Negative Normal NEGATIVE [facility] Comment on above: Performed By: #### D RUGRPD ####[facility] [address] [place], [place] [address]Dr. Nicky Simmons MTD Negative Normal NEGATIVE [facility] Comment on above: Performed By: #### D RUGRPD ####[facility] [address] [place], [place] [address]Dr. Nicky Simmons OPI Positive Abnormal NEGATIVE [facility] Comment on above: Performed By: #### D RUGRPD ####[facility] Xrjbbafnxh[address] [place] [address]Dr. Nicky Simmons OXY Negative Normal NEGATIVE [facility] Comment on above: Performed By: #### D RUGRPD ####[facility] Bnfnblxtiq[address] [place] [address]Dr. Nicky Simmons PCP Negative Normal NEGATIVE [facility] Comment on above: Performed By: #### D RUGRPD ####[facility] [address]jbcducih[address] [place] [address]Dr. Nicky Simmons PPX Negative Normal NEGATIVE [facility] Comment on above: Performed By: #### D RUGRPD ####[facility] Awsm[address]oaqn[address] [place] [address]Dr. Nicky Simmons TCA Negative Normal NEGATIVE [facility] Comment on above: Performed By: #### D RUGRPD ####[facility] Qripadiuja[address] [place] [address]Dr. Nicky Simmons THC Positive Abnormal NEGATIVE [facility] Comment on above: Performed By: #### D RUGRPD ####[facility] Tbetitgjbw[address] [place] [address]Dr. Nicky Simmons ER URINE PROFILEon 3 Bilirubin Ql (U) Negative Normal NEGATIVE [facility] Comment on above: Performed By: #### C BC #### [facility] [address] [place] [address] Dr. Nicky Simmons Clarity (U) CLEAR Normal CLEAR [facility] Comment on above: Performed By: #### C BC #### [facility] [address] [place] [address] Dr. Nicky Simmons Color (U) LT. YELLOW Normal YELLOW [facility] Comment on above: Performed By: #### C BC #### [facility] [address] [place] [address] Dr. Nicky NORTON A micrscopic examination will be performed if indicated. Normal [facility] Comment on above: Performed By: #### C BC #### [facility] [address] [place] [address] Dr. Nicky Simmons Glucose Ql (U) Negative Normal NEGATIVE [facility] Comment on above: Performed By: #### C BC #### [facility] [address] [place] [address] Dr. Nicky Simmons Hemoglobin Ql (U) Negative Normal NEGATIVE [facility] Comment on above: Performed By: #### C BC #### [facility] [address] [place] [address] Dr. Nicky Simmons Ketones Ql (U) Negative Normal NEGATIVE [facility] Comment on above: Performed By: #### C BC #### [facility] [address] [place] [address] Dr. Nicky Simmons LEUKOCYTES SMALL Abnormal NEGATIVE [facility] Comment on above: Performed By: #### C BC #### [facility] [address] [place] [address] Dr. Nicky Simmons Nitrite Ql (U) Negative Normal NEGATIVE [facility] Comment on above: Performed By: #### C BC #### [facility] [address] [place] [address] Dr. Nicky Simmons pH (U) 6.5 [pH] Normal 5-9 [facility] Comment on above: Performed By: #### C BC #### [facility] [address] [place] [address] Dr. Nicky Simmons SPEC GRAVITY <=1.005 Abnormal 1.005-<=1.025 [facility] Comment on above: Performed By: #### C BC #### [facility] [address] [place] [address] Dr. Nicky Simmosn UA PROTEIN Negative Normal NEGATIVE/ TRACE [facility] Comment on above: Performed By: #### C BC #### [facility] [address] [place] [address] Dr. Nicky Simmons UR MICRO IND INDICATED Normal [facility] Comment on above: Performed By: #### C BC #### [facility] [address] [place] [address] Dr. Nicky Simmons Urobilinogen Qn (U) 0.2 {Yan'U}/dL Normal 0.2 - 1. 0 [facility] Comment on above: Performed By: #### C BC #### [facility] [address] [place] [address] [address] Nicky Simmons LIPASEon 01-19-2023 Lipase [Catalytic activity/Vol] 46.0 U/L Critically low 73.0-393.0 [facility] Comment on above: Performed By: #### A JUANI LIPA, CMP ####[facility] [address]to[address]md[address] [place] [address]DrBella Simmons PROF 14(COMP METB)on 023 Albumin [Mass/Vol] 3.1 g/dL Critically low 3.4-5.0 [facility] Comment on above: Performed By: #### A MY LIPA, CMP ####[facility] Zczjjgruvg3968 [place] [address]DrBella Simmons Albumin/Globulin [Mass ratio] 0.8 {ratio} Normal [facility] Comment on above: Performed By: #### A MY LIPA, CMP ####[facility] Hhcadsdtcs4918 [place] [address]Dr. Nicky Simmons ALP [Catalytic activity/Vol] 102 U/L Normal 46-116 [facility] Comment on above: Performed By: #### A MY LIPA, CMP ####[facility] Foubpzzgeh360[address] [place] [address]DrBella Simmons ALT [Catalytic activity/Vol] 64 U/L Critically high 14-59 [facility] Comment on above: Performed By: #### A MY, LIPA, CMP ####[facility] Sgiapbvwrw7593 [place] [address]Dr. Nicky Simmons Anion gap [Moles/Vol] 15.6 mmol/L Normal [facility] Comment on above: Performed By: #### A MY, LIPA, CMP ####[facility] Ucvrywvpsv8174 [place] [address]Dr. Nicky Simmons AST [Catalytic activity/Vol] 28 U/L Normal 15-37 [facility] Comment on above: Performed By: #### A MY LIPA, CMP ####[facility] Oytefrfedq[address]324 [place] [address]Dr. Nicky Simmons Bilirubin [Mass/Vol] 0.4 mg/dL Normal 0.2-1.0 [facility] Comment on above: Performed By: #### A MY, LIPA, CMP ####[facility] Fsocvdvujs1093 [place] [address]Dr. Nicky Simmons Calcium [Mass/Vol] 8.9 mg/dL Normal 8.5-10.1 [facility] Comment on above: Performed By: #### A MY LIPA, CMP ####[facility] [address]xs[address] [place], [place] [address]Dr. Nicky Simmons Chloride [Moles/Vol] 105 mmol/L Normal 98-107 [facility] Comment on above: Performed By: #### A MY LIPA, CMP ####[facility] [address] [place], [place] [address]Dr. Nicky Simmons CO2 [Moles/Vol] 23.0 mmol/L Normal 21.0-32.0 [facility] Comment on above: Performed By: #### A MY LIPA, CMP ####[facility] Fiteve[address]qa[address] [place], [place] [address]Dr. Nicky Simmons Creatinine [Mass/Vol] 0.71 mg/dL Normal 0.55-1.02 [facility] Comment on above: Performed By: #### A MY LIPA, CMP ####[facility] [address] [place], [place] [address]Dr. Nicky Simmons EGFR-AF BURKINAN >60 Normal >=60 [facility] Comment on above: Performed By: #### A MY, LIPA, CMP ####[facility] [address] [place], [place] [address]Dr. Nicky Simmons EGFR-NON AF BURKINAN >60 Normal >=60 [facility] Comment on above: Performed By: #### A MY, LIPA, CMP ####[facility] [address]fu[address] [place], [place] [address]Dr. Nicky Simmons Globulin (S) [Mass/Vol] 4.0 g/dL Normal [facility] Comment on above: Performed By: #### A ROMÁN GLORIA, CMP ####[facility] [address]igtknl[address] [place] [address]Dr. Nicky Simmons Glucose [Mass/Vol] 99 mg/dL Normal 74-106 [facility] Comment on above: Performed By: #### A ROMÁN GLORIA, CMP ####[facility] Cqfzzbkycx3102 [place] [address]Dr. Nicky Simmons Potassium [Moles/Vol] 3.6 mmol/L Normal 3.5-5.1 [facility] Comment on above: Performed By: #### A ROMÁN GLORIA, CMP ####[facility] Kav[address]mpqaqz[address] [place] [address]Dr. Nicky Simmons Protein [Mass/Vol] 7.1 g/dL Normal 6.4-8.2 [facility] Comment on above: Performed By: #### A ROMÁN GLORIA, CMP ####[facility] [address]kll[address]rroo[address] [place] [address]Dr. Nicky Simmons Sodium [Moles/Vol] 140 mmol/L Normal 136-145 [facility] Comment on above: Performed By: #### A ROMÁN GLORIA, CMP ####[facility] [address]zfjbqtsa[address] [place] [address]Dr. Nicky Simmons Urea nitrogen [Mass/Vol] 8.0 mg/dL Normal 7.0-18.0 [facility] Comment on above: Performed By: #### A ROMÁN GLORIA, CMP ####[facility] [address] [place] [address]Dr. Nicky Simmons Urea nitrogen/Creatinine [Mass ratio] 11.3 mg/mg Normal [facility] Comment on above: Performed By: #### A ROMÁN GLORIA, CMP ####[facility] [address] [place] [address]Dr. Nicky Simmons URINE MICROSCOPIC ONLYon BACTERIA TRACE Abnormal NONE SEEN [facility] Comment on above: Performed By: #### C BC #### [facility] [address] [place] [address] Dr. Nicky Simmons Bacteria identified Cx Nom (U) INDICATED Normal [facility] Comment on above: Performed By: #### C BC #### [facility] [address] [place] [address] Dr. Nicky Simmons CAST NONE SEEN Normal NONE SEEN [facility] Comment on above: Performed By: #### C BC #### [facility] [address] [place] [address] Dr. Nicky Simmons Crystals LM Nom (Urine sed) NONE SEEN Normal NONE SEEN [facility] Comment on above: Performed By: #### C BC #### [facility] [address] [place] [address] Dr. Nicky Simmons Epithelial cells LM Ql (Urine sed) FEW Abnormal NONE SEEN /RARE [facility] Comment on above: Performed By: #### C BC #### [facility] [address] [place] [address] Dr. Nicky Simmons MUCOUS NONE SEEN Normal NONE SEEN [facility] Comment on above: Performed By: #### C BC #### [facility] [address] [place] [address] Dr. Nicky Simmons RBC 0-2 Normal 0-2 [facility] Comment on above: Performed By: #### C BC #### [facility] [address] [place] [address] Dr. Nicky Simmons WBC 2-5 Abnormal NONE SEEN [facility] Comment on above: Performed By: #### C BC #### [facility] [address] [place] [address] Dr. Nicky Simmons XR CHEST 1 Von [...] SREE MCCLENDON Date: 2023-01-11 21:21 Normal [facility] CBC AUTO DIFFon 12-18-2022 BASO # 0.0 103/ul Normal 0.0-0.1 [facility] Comment on above: Performed By: #### C BC #### [facility] [address] [place] [address] Dr. Nicky Simmons Basophils/100 WBC (Bld) 0.3 % Normal 0.2-2.0 [facility] Comment on above: Performed By: #### C BC #### [facility] [address] [place] [address] Dr. Nicky Simmons EO # 0.2 103/ul Normal 0.0-0.7 [facility] Comment on above: Performed By: #### C BC #### [facility] [address] [place] [address] Dr. Nicky Simmons Eosinophils/100 WBC (Bld) 1.4 % Normal 0.9-7.0 [facility] Comment on above: Performed By: #### C BC #### [facility] [address] [place] [address] Dr. Nicky Simmons Erythrocyte distribution width (RBC) [Ratio] 13.0 % Normal 11.0-15.0 [facility] Comment on above: Performed By: #### C BC #### [facility] [address] [place] [address] Dr. Nicky Simmons Hematocrit (Bld) [Volume fraction] 40.3 % Normal 36.0-48.0 [facility] Comment on above: Performed By: #### C BC #### [facility] [address] [place] [address] Dr. Nicky Simmons Hemoglobin (Bld) [Mass/Vol] 13.5 g/dL Normal 12.0-16.0 [facility] Comment on above: Performed By: #### C BC #### [facility] [address] [place] [address] Dr. Nicky Simmons IG # 0.03 10e3/ul Normal 0.00-0.03 [facility] Comment on above: Performed By: #### C BC #### [facility] [address] [place] [address] Dr. Nicky Simmons IG % 0.3 % Normal 0.0-0.5 [facility] Comment on above: Performed By: #### C BC #### [facility] [address] [place] [address] Dr. Nicky Simmons LYMPH # 3.3 103/ul Normal 1.2-3.8 [facility] Comment on above: Performed By: #### C BC #### [facility] [address] [place] [address] Dr. Nicky Simmons Lymphocytes/100 WBC (Bld) 27.9 % Normal 20.5-60.0 [facility] Comment on above: Performed By: #### C BC #### [facility] [address] [place] [address] Dr. Nicky Simmons MANUAL DIFF REQ NO Normal [facility] Comment on above: Performed By: #### C BC #### [facility] [address] [place] [address] Dr. Nicky Simmons MCH (RBC) [Entitic mass] 29.3 pg Normal 26.7-34.0 [facility] Comment on above: Performed By: #### C BC #### [facility] [address] [place] [address] Dr. Nicky Simmons MCHC (RBC) [Mass/Vol] 33.5 g/dL Normal 29.9-35.2 [facility] Comment on above: Performed By: #### C BC #### [facility] [address] [place] [address] Dr. Nicky Simmons MCV (RBC) [Entitic vol] 87.4 fL Normal 81.0-99.0 [facility] Comment on above: Performed By: #### C BC #### [facility] [address] [place] [address] Dr. Nicky Simmons MONO # 0.7 103/ul Normal 0.3-0.8 [facility] Comment on above: Performed By: #### C BC #### [facility] [address] [place] [address] Dr. Nicky Simmons Monocytes/100 WBC (Bld) 6.0 % Normal 1.7-12.0 [facility] Comment on above: Performed By: #### C BC #### [facility] [address] [address] [address] Nicky Simmons NEUT # 7.6 103/ul Critically high 1.4-6.5 [facility] Comment on above: Performed By: #### C BC #### [facility] [address] [address] [address] Nicky Simmons Neutrophils/100 WBC (Bld) 64.1 % Normal 43.0-75.0 [facility] Comment on above: Performed By: #### C BC #### [facility] [address] [address] [address] Nicky Simmons Platelet mean volume (Bld) [Entitic vol] 9.1 fL Critically low 9.5-13.5 [facility] Comment on above: Performed By: #### C BC #### [facility] [address] [place] [address] Dr. Nicky Simmons PLT 381 103/ul Normal 150-450 [facility] Comment on above: Performed By: #### C BC #### [facility] [address] [address] [address] Nicky Simmons RBC 4.61 106/ul Normal 4.20-5.40 [facility] Comment on above: Performed By: #### C BC #### [facility] [address] [address] [address] Nicky Simmons WBC 11.9 103/ul Critically high 4.0-11.0 [facility] Comment on above: Performed By: #### C BC #### [facility] [address] [place] [address] Dr. Nicky Simmons PROTIMEon 12-18-2022 INR Coag (PPP) [Relative time] {INR} Normal [facility] Comment on above: Performed By: #### I NFLUAB #### [facility] [address] [place] [address] Dr. Nicky Simmons INR GUIDELINES SEE BELOW Normal [facility] Comment on above: Result Comment: LEOPOLDO RED INR: 2.0 - 3.0 CONDITIONS NOT LISTED BELOW 2.5 - 3.5 FOR PROSTHETIC HEART VALVE REPLACEMENT 2.5 - 3.5 RECURRENT THROMBOSIS Performed By: #### I NFLUAB #### [facility] [address] [place] [address] Dr. Nicky Simmons PT Coag (PPP) [Time] 9.7 s Normal 9.0-11.6 [facility] Comment on above: Performed By: #### I NFLUAB #### [facility] [address] [place] [address] Dr. Nicky Simmons PTTon 12-18-2022 aPTT Coag (Bld) [Time] 27.9 s Normal 22.3-36.2 [facility] Comment on above: Performed By: #### I NFLUAB #### [facility] [address] [place] [address] Dr. Nicky Simmons Covid-19 PCR (CVDTBH)on 11-03 SARS-CoV-2 (COVID-19) RNA GOKUL+probe Ql (Unsp spec) Not detected Normal NOT DETECTED [facility] Comment on above: Result Comment: When [...] for this test is supported by the [place] of Health and Human Service's declaration that [...] used). Performed By: #### C VDTBH #### [facility] [address] [place] [address] Dr. Nicky Simmons GROUP A STREP CULTUREon 11-03 S. pyogenes Ag Ql (Unsp spec) Culture Observations: NEGATIVE FOR GROUP A STREPTOCOCCUS. Normal [facility] Comment on above: Performed By: #### C BC #### [facility] [address] [place] [address] Dr. Nicky Simmons INFLUENZA A AND B AGon 11-13 INFLUENZA A AG Negative Normal NEGATIVE SEE COMMENT [facility] Comment on above: Performed By: #### I NFLUAB #### [facility] [address] [place] [address] Dr. Nicky Simmons INFLUENZA B AG Negative Normal NEGATIVE SEE COMMENT [facility] Comment on above: Performed By: #### I NFLUAB #### [facility] [address] [place] [address] Dr. Nicky Simmons STREPT SCREENon 11-13-2022 STREP SCREEN A Negative Normal NEGATIVE [facility] Comment on above: Performed By: #### C BC #### [facility] [address] [place] [address] Dr. Nicky Simmons GROUP A STREP CULTUREon 10-07 S. pyogenes Ag Ql (Unsp spec) Culture Observations: NEGATIVE FOR GROUP A STREPTOCOCCUS. Normal [facility] Comment on above: Performed By: #### C BC #### [facility] [address] [place] [address] Dr. Nicky Simmons STREPT SCREENon 11-02-2022 STREP SCREEN A Negative Normal NEGATIVE [facility] Comment on above: Performed By: #### C BC #### [facility] [address] [place] [address] Dr. Nicky Simmons CBC AUTO DIFFon 10-22-2022 BASO # 0.0 103/ul Normal 0.0-0.1 [facility] Comment on above: Performed By: #### C BC #### [facility] [address] [place] [address] Dr. Nicky Simmons Basophils/100 WBC (Bld) 0.3 % Normal 0.2-2.0 [facility] Comment on above: Performed By: #### C BC #### [facility] [address] [place] [address] Dr. Nicky Simmons EO # 0.2 103/ul Normal 0.0-0.7 [facility] Comment on above: Performed By: #### C BC #### [facility] [address] [place] [address] Dr. Nicky Simmons Eosinophils/100 WBC (Bld) 1.2 % Normal 0.9-7.0 [facility] Comment on above: Performed By: #### C BC #### [facility] [address] [place] [address] Dr. Nicky Simmons Erythrocyte distribution width (RBC) [Ratio] 12.9 % Normal 11.0-15.0 [facility] Comment on above: Performed By: #### C BC #### [facility] [address] [place] [address] Dr. Nicky Simmons Hematocrit (Bld) [Volume fraction] 45.3 % Normal 36.0-48.0 [facility] Comment on above: Performed By: #### C BC #### [facility] [address] [place] [address] Dr. Nicky Simmons Hemoglobin (Bld) [Mass/Vol] 15.1 g/dL Normal 12.0-16.0 [facility] Comment on above: Performed By: #### C BC #### [facility] [address] [place] [address] Dr. Nicky Simmons IG # 0.07 10e3/ul Critically high 0.00-0.03 [facility] Comment on above: Performed By: #### C BC #### [facility] [address] [place] [address] Dr. Nicky Simmons IG % 0.4 % Normal 0.0-0.5 [facility] Comment on above: Performed By: #### C BC #### [facility] [address] [place] [address] Dr. Nicky Simmons LYMPH # 1.1 103/ul Critically low 1.2-3.8 [facility] Comment on above: Performed By: #### C BC #### [facility] [address] [place] [address] Dr. Nicky Simmons Lymphocytes/100 WBC (Bld) 7.1 % Critically low 20.5-60.0 [facility] Comment on above: Performed By: #### C BC #### [facility] [address] [place] [address] Dr. Nicky Simmons MANUAL DIFF REQ NO Normal [facility] Comment on above: Performed By: #### C BC #### [facility] [address] [place] [address] Dr. Nicky Simmons MCH (RBC) [Entitic mass] 28.8 pg Normal 26.7-34.0 [facility] Comment on above: Performed By: #### C BC #### [facility] [address] [place] [address] Dr. Nicky Simmons MCHC (RBC) [Mass/Vol] 33.3 g/dL Normal 29.9-35.2 [facility] Comment on above: Performed By: #### C BC #### [facility] [address] [place] [address] Dr. Nicky Simmons MCV (RBC) [Entitic vol] 86.3 fL Normal 81.0-99.0 [facility] Comment on above: Performed By: #### C BC #### [facility] [address] [place] [address] Dr. Nicky Simmons MONO # 0.4 103/ul Normal 0.3-0.8 [facility] Comment on above: Performed By: #### C BC #### [facility] [address] [place] [address] Dr. Nicky Simmons Monocytes/100 WBC (Bld) 2.6 % Normal 1.7-12.0 [facility] Comment on above: Performed By: #### C BC #### [facility] [address] [place] [address] Dr. Nicky Simmons NEUT # 14.0 103/ul Critically high 1.4-6.5 [facility] Comment on above: Performed By: #### C BC #### [facility] [address] [place] [address] Dr. Nicky Simmons Neutrophils/100 WBC (Bld) 88.4 % Critically high 43.0-75.0 [facility] Comment on above: Performed By: #### C BC #### [facility] [address] [place] [address] Dr. Nicky Simmons Platelet mean volume (Bld) [Entitic vol] 9.4 fL Critically low 9.5-13.5 [facility] Comment on above: Performed By: #### C BC #### [facility] [address] [address] [address] Nicky Simmons PLT 399 103/ul Normal 150-450 [facility] Comment on above: Performed By: #### C BC #### [facility] [address] [place] [address] Dr. Nicky Simmons RBC 5.25 106/ul Normal 4.20-5.40 [facility] Comment on above: Performed By: #### C BC #### [facility] [address] [place], [place] [id number] Dr. Nicky Simmons WBC 15.9 103/ul Critically high 4.0-11.0 [facility] Comment on above: Performed By: #### C BC #### [facility] [address] [place], [place] [id number] Dr. Nicky Simmons CT ABD/PELVIS WO CONon [...] JUDY CONKLIN Date: 2022-10-22 00:08 Normal [facility] ER URINE PROFILEon 3 Bilirubin Ql (U) SMALL Abnormal NEGATIVE [facility] Comment on above: Performed By: #### Ashley RUR, PREGU ####[facility] [address] [place], [place] [address]Dr. Nicky Simmons Clarity (U) CLEAR Normal CLEAR [facility] Comment on above: Performed By: #### Ashley RUR, PREGU ####[facility] [address] [place] [address]Dr. Nicky Simmons Color (U) DK. YELLOW Normal YELLOW [facility] Comment on above: Performed By: #### Ashley RUR, PREGU ####[facility] [address] [place] [address]Dr. Nicky LAWRENCED A micrscopic examination will be performed if indicated. Normal [facility] Comment on above: Performed By: #### E RUR, PREGU ####[facility] [address] [place] [address]Dr. Nicky Simmons Glucose Ql (U) Negative Normal NEGATIVE [facility] Comment on above: Performed By: #### E RUR, PREGU ####[facility] [address] [place] [address]Dr. Nicky Simmons Hemoglobin Ql (U) Negative Normal NEGATIVE [facility] Comment on above: Performed By: #### Ashley RUR, PREGU ####[facility] [address] [place], [place] [address]Dr. Nicky Simmons Ketones Ql (U) 15 mg/dl Abnormal NEGATIVE [facility] Comment on above: Performed By: #### Ashley RUR, PREGU ####[facility] [address] [place], [place] [address]Dr. Nicky Simmons LEUKOCYTES Negative Normal NEGATIVE [facility] Comment on above: Performed By: #### E RUR, PREGU ####[facility] [address] [place], [place] [address]Dr. Nicky Simmons Nitrite Ql (U) Negative Normal NEGATIVE [facility] Comment on above: Performed By: #### Ashley BURGOSR, PREGU ####[facility] [address] [place], [place] [address]Dr. Nicky Simmons pH (U) 5.0 [pH] Normal 5-9 [facility] Comment on above: Performed By: #### Ashley BURGOSR, PREGU ####[facility] Jr[address] [place], [place] [address]Dr. Nicky Simmons SPEC GRAVITY >=1.030 Abnormal 1.005-<=1.025 [facility] Comment on above: Performed By: #### Ashley JONES, PREGU ####[facility] [address] [place], [place] [address]Dr. Nicky Simomns UA PROTEIN TRACE Normal NEGATIVE/ TRACE [facility] Comment on above: Performed By: #### Ashley RUR, PREGU ####[facility] [address] [place], [place] [address]Dr. Nicky Simmons UR MICRO IND NOT INDICATED Normal [facility] Comment on above: Performed By: #### Ashley RUR, PREGU ####[facility] [address] [place], [place] [address]Dr. Nicky Simmons Urobilinogen Qn (U) 0.2 {Yan'U}/dL Normal 0.2 - 1. 0 [facility] Comment on above: Performed By: #### Ashley RUR, PREGU ####[facility] [address] [place], [place] [address]NiBella Simmons LIPASEon 10-22-2022 Lipase [Catalytic activity/Vol] 56.0 U/L Critically low 73.0-393.0 [facility] Comment on above: Performed By: #### L IPA ####[facility] [address] [place] [id number] Simmons PREG HCG QUALon 10-22-2022 , QUAL Negative Normal NEGATIVE [facility] Comment on above: Performed By: #### P REG ####[facility] [address] [place] [id number] Simmons URon 10-22-2022 , QUAL Negative Normal NEGATIVE [facility] Comment on above: Performed By: #### E RUR, PREGU ####[facility] [address] [place] [id number]. Nicky Simmons PROF 14(COMP METB)on 023 Albumin [Mass/Vol] 3.7 g/dL Normal 3.4-5.0 [facility] Comment on above: Performed By: #### I NFLUAB #### [facility] [address] [address] [address] Nicky Simmons Albumin/Globulin [Mass ratio] 0.9 {ratio} Normal [facility] Comment on above: Performed By: #### I NFLUAB #### [facility] [address] [address] [address] Nicky Simmons ALP [Catalytic activity/Vol] 128 U/L Critically high 46-116 [facility] Comment on above: Performed By: #### I NFLUAB #### [facility] [address] [address] [address] Nicky Simmons ALT [Catalytic activity/Vol] 38 U/L Normal 14-59 [facility] Comment on above: Performed By: #### I NFLUAB #### [facility] [address] [address] [address] Nicky Simmons Anion gap [Moles/Vol] 17.1 mmol/L Normal [facility] Comment on above: Performed By: #### I NFLUAB #### [facility] [address] [address] [address] Nicky Simmons AST [Catalytic activity/Vol] 27 U/L Normal 15-37 [facility] Comment on above: Performed By: #### I NFLUAB #### [facility] [address] [address] [address] Nicky Simmons Bilirubin [Mass/Vol] 0.5 mg/dL Normal 0.2-1.0 [facility] Comment on above: Performed By: #### I NFLUAB #### [facility] [address] [address] [address] Nicky Simmons Calcium [Mass/Vol] 8.9 mg/dL Normal 8.5-10.1 [facility] Comment on above: Performed By: #### I NFLUAB #### [facility] [address] [address] [address] Nicky Simmons Chloride [Moles/Vol] 102 mmol/L Normal 98-107 [facility] Comment on above: Performed By: #### I NFLUAB #### [facility] [address] [address] [address] Nicky Simmons CO2 [Moles/Vol] 21.9 mmol/L Normal 21.0-32.0 [facility] Comment on above: Performed By: #### I NFLUAB #### [facility] [address] [address] [address] Nicky Simmons Creatinine [Mass/Vol] 0.77 mg/dL Normal 0.55-1.02 [facility] Comment on above: Performed By: #### I NFLUAB #### [facility] [address] [address] [address] Nicky Simmons EGFR-AF BURKINAN >60 Normal >=60 [facility] Comment on above: Performed By: #### I NFLUAB #### [facility] [address] [address] [address] Nicky Simmons EGFR-NON AF BURKINAN >60 Normal >=60 [facility] Comment on above: Performed By: #### I NFLUAB #### [facility] [address] [address] [address] Nicky Simmons Globulin (S) [Mass/Vol] 3.9 g/dL Normal [facility] Comment on above: Performed By: #### I NFLUAB #### [facility] [address] [address] [address] Nicky Simmons Glucose [Mass/Vol] 105 mg/dL Normal 74-106 [facility] Comment on above: Performed By: #### I NFLUAB #### [facility] [address] [address] [address] Nicky Simmons Potassium [Moles/Vol] 4.0 mmol/L Normal 3.5-5.1 [facility] Comment on above: Performed By: #### I NFLUAB #### [facility] [address] [place] [address] Dr. Nicky Simmons Protein [Mass/Vol] 7.6 g/dL Normal 6.4-8.2 [facility] Comment on above: Performed By: #### I NFLUAB #### [facility] [address] [address] [address] Nicky Simmons Sodium [Moles/Vol] 137 mmol/L Normal 136-145 [facility] Comment on above: Performed By: #### I NFLUAB #### [facility] [address] [place] [address] Dr. Nicky Simmons Urea nitrogen [Mass/Vol] 12.0 mg/dL Normal 7.0-18.0 [facility] Comment on above: Performed By: #### I NFLUAB #### [facility] [address] [address] [address] Nicky Simmons Urea nitrogen/Creatinine [Mass ratio] 15.6 mg/mg Normal [facility] Comment on above: Performed By: #### I NFLUAB #### [facility] [address] [address] [address] Nicky Simmons CBC AUTO DIFFon 09-06-2022 BASO # 0.1 103/ul Normal 0.0-0.1 [facility] Comment on above: Performed By: #### C BC ####[facility] [address] [address]Dr. Nicky Simmons Basophils/100 WBC (Bld) 0.5 % Normal 0.2-2.0 [facility] Comment on above: Performed By: #### C BC ####[facility] [address] [address]Dr. Nicky Simmons EO # 0.3 103/ul Normal 0.0-0.7 [facility] Comment on above: Performed By: #### C BC ####[facility] [address] [place], [place] [address]Dr. Nicky Simmons Eosinophils/100 WBC (Bld) 2.4 % Normal 0.9-7.0 [facility] Comment on above: Performed By: #### C BC ####[facility] [address] [place], [place] [address]Dr. Nicky Simmons Erythrocyte distribution width (RBC) [Ratio] 12.7 % Normal 11.0-15.0 [facility] Comment on above: Performed By: #### C BC ####[facility] [address] [place], [place] [address]Dr. Nicky Simmons Hematocrit (Bld) [Volume fraction] 37.5 % Normal 36.0-48.0 [facility] Comment on above: Performed By: #### C BC ####[facility] [address] [place], [place] [address]Dr. Nicky Simmons Hemoglobin (Bld) [Mass/Vol] 12.6 g/dL Normal 12.0-16.0 [facility] Comment on above: Performed By: #### C BC ####[facility] [address] [place], [place] [address]Dr. Nicky Simmons IG # 0.05 10e3/ul Critically high 0.00-0.03 [facility] Comment on above: Performed By: #### C BC ####[facility] [address] [place], [place] [address]Dr. Nicky Simmons IG % 0.4 % Normal 0.0-0.5 [facility] Comment on above: Performed By: #### C BC ####[facility] [address] [place] [address]Dr. Nicky Troy LYMPH # 2.9 103/ul Normal 1.2-3.8 [facility] Comment on above: Performed By: #### C BC ####[facility] [address] [place] [address]Dr. Nicky Simmons Lymphocytes/100 WBC (Bld) 25.2 % Normal 20.5-60.0 [facility] Comment on above: Performed By: #### C BC ####[facility] [address] [place] [address]Dr. Nicky Simmons MANUAL DIFF REQ NO Normal [facility] Comment on above: Performed By: #### C BC ####[facility] [address] [place], [place] [address]Dr. Nicky Simmons MCH (RBC) [Entitic mass] 29.4 pg Normal 26.7-34.0 [facility] Comment on above: Performed By: #### C BC ####[facility] [facility] [address] [place], [place] [address]Dr. Nicky Simmons MCHC (RBC) [Mass/Vol] 33.6 g/dL Normal 29.9-35.2 [facility] Comment on above: Performed By: #### C BC ####[facility] [address] [place] [address]Dr. Nicky Simmons MCV (RBC) [Entitic vol] 87.4 fL Normal 81.0-99.0 [facility] Comment on above: Performed By: #### C BC ####[facility] [address] [place], [place] [address]Dr. Nicky Simmons MONO # 0.7 103/ul Normal 0.3-0.8 [facility] Comment on above: Performed By: #### C BC ####[facility] [address] [place] [id number]. Nicky Simmons Monocytes/100 WBC (Bld) 6.4 % Normal 1.7-12.0 [facility] Comment on above: Performed By: #### C BC ####[facility] [address] [place] [address]Dr. Nicky Simmons NEUT # 7.5 103/ul Critically high 1.4-6.5 [facility] Comment on above: Performed By: #### C BC ####[facility] [address] [place] [address]Dr. Nicky Simmons Neutrophils/100 WBC (Bld) 65.1 % Normal 43.0-75.0 [facility] Comment on above: Performed By: #### C BC ####[facility] [address] [place] [address]Dr. Nicky Simmons Platelet mean volume (Bld) [Entitic vol] 9.1 fL Critically low 9.5-13.5 [facility] Comment on above: Performed By: #### C BC ####[facility] [address] [place] [address]Dr. Nicky Simmons PLT 380 103/ul Normal 150-450 [facility] Comment on above: Performed By: #### C BC ####[facility] [address] [place], [place] [address]Dr. Nicky Simmons RBC 4.29 106/ul Normal 4.20-5.40 [facility] Comment on above: Performed By: #### C BC ####[facility] [address] [place], [place] [address]Dr. Nicky Simmons WBC 11.5 103/ul Critically high 4.0-11.0 [facility] Comment on above: Performed By: #### C BC ####[facility] [address] [place], [place] [id number]. Nicky Simmons CTA CHEST WO W CONon [...] MUKUND MASSEY Date: 2022-09-06 19:34 Normal [facility] Covid-19 PCR (CVDTB)on SARS-CoV-2 (COVID-19) RNA GOKUL+probe Ql (Unsp spec) Not detected Normal NOT DETECTED [facility] Comment on above: Result Comment: This test is not yet approved or cleared by the [place] FDA. When there are no FDA-approved or cleared tests available, and other criteria are met, FDA can make tests available under an emergency access mechanism called an Emergency Use Authorization (EUA). The EUA for this test is supported by the [employer] of Health and Human Service's (HHS's) declaration [...] consistent with SARS-CoV-2. Performed By: #### [facility] ####[facility] [address] [place], [place] [address]Tw. Nicky Simmons D-DIMERon 09-06-2022 D-DIMER 0.62 mg/L FEU Critically high <=0.59 [facility] Comment on above: Performed By: #### D DIM ####[facility] [address] [place] [address]Dr. Nicky Simmons D-DIMER COMMENTS SEE BELOW Normal [facility] Comment on above: Result Comment: Incr eases [...] generalized hospitalization. Performed By: #### D DIM ####[facility] [address] [place] [address]Dr. Nicky Simmons INFLUENZA A AND B AGon 09-06 [facility] Normal [facility] Comment on above: Result Comment: Nega tive for Flu A protein angiten. Infection due to Flu A cannot be ruled out. Flu A angiten in the sample may be below the detection limit of the test. Performed By: #### C BC #### [facility] [address] [place] [address] Dr. Nicky Simmons INFLUBNEG SEE BELOW Normal [facility] Comment on above: Result Comment: Nega tive for Flu B protein antigen. Infection due to Flu B cannot be ruled out. Flu B antigen in the sample may be below the detection limit of the test. Performed By: #### C BC #### [facility] [address] [place] [address] Dr. Nicky Simmons INFLUENZA A AG Negative Normal NEGATIVE SEE COMMENT [facility] Comment on above: Performed By: #### C BC #### [facility] [address] [place] [address] Dr. Nicky Simmons INFLUENZA B AG Negative Normal NEGATIVE SEE COMMENT [facility] Comment on above: Performed By: #### C BC #### [facility] [address] [place] [address] Dr. Nicky Simmons PROF CHEM 8 (BAS METB)on Anion gap [Moles/Vol] 12.7 mmol/L Normal [facility] Comment on above: Performed By: #### I NFLUAB #### [facility] [address] [place] [address] Dr. Nicky Simmons Calcium [Mass/Vol] 8.6 mg/dL Normal 8.5-10.1 [facility] Comment on above: Performed By: #### I NFLUAB #### [facility] [address] [address] [address] Nicky Simmons Chloride [Moles/Vol] 103 mmol/L Normal 98-107 [facility] Comment on above: Performed By: #### I NFLUAB #### [facility] [address] [place] [address] Dr. Nicky Simmons CO2 [Moles/Vol] 24.9 mmol/L Normal 21.0-32.0 [facility] Comment on above: Performed By: #### I NFLUAB #### [facility] [address] [place] [address] Dr. Nicky Simmons Creatinine [Mass/Vol] 0.86 mg/dL Normal 0.55-1.02 [facility] Comment on above: Performed By: #### I NFLUAB #### [facility] [address] [place] [address] Dr. Nicky Simmons EGFR-AF BURKINAN >60 Normal >=60 [facility] Comment on above: Performed By: #### I NFLUAB #### [facility] [address] [place] [address] Dr. Nicky Simmons EGFR-NON AF BURKINAN >60 Normal >=60 [facility] Comment on above: Performed By: #### I NFLUAB #### [facility] [address] [place] [address] Dr. Nicky Simmons Glucose [Mass/Vol] 113 mg/dL Critically high 74-106 [facility] Comment on above: Performed By: #### I NFLUAB #### [facility] [address] [place] [address] Dr. Nicky Simmons Potassium [Moles/Vol] 3.6 mmol/L Normal 3.5-5.1 [facility] Comment on above: Performed By: #### I NFLUAB #### [facility] [address] [address] [address] Nicky Simmons Sodium [Moles/Vol] 137 mmol/L Normal 136-145 [facility] Comment on above: Performed By: #### I NFLUAB #### [facility] [address] [address] [address] Nicky Simmons Urea nitrogen [Mass/Vol] 9.0 mg/dL Normal 7.0-18.0 [facility] Comment on above: Performed By: #### I NFLUAB #### [facility] [address] [address] [address] Nicky Simmons Urea nitrogen/Creatinine [Mass ratio] 10.5 mg/mg Normal [facility] Comment on above: Performed By: #### I NFLUAB #### [facility] [address] [place] [address] Dr. Nicky Simmons XR CHEST 1 Von 09-06-2022 XR CHEST 1 V CHEST X-RAY, 1 VIEW HISTORY: Cough. COMPARISON: 05/17/2022. FINDINGS: The heart, angel, and mediastinum are unremarkable. The lungs are grossly clear. There are no pleural effusions. There is no pneumothorax. IMPRESSION: No evidence of acute cardiopulmonary disease. Electronically authenticated by: ESTHER MARY Date: 2022-09-06 18:22 Normal [facility] COVID-19 Positive/NegativeOr dered By: Christopher Mendoza on 06-28-2022 SARS-CoV-2 (COVID-19) N gene GOKUL+probe Ql (Resp) Negative Negative [facility] Comment on above: Testing for SARS-CoV -2 by RT-PCRThis test was developed and its performance characteristics determined by [employer] ([employer]) and validated at the [facility]. This test has not been [...] NEGATIVE FOR GROUP A STREPTOCOCCUS. Normal [facility] Comment on above: Performed By: #### S SCRN, GRASTCX #### [facility] [address] [place] [address] Dr. Nicky Simmons INFLUENZA A AND B AGon 05-17 INFLUENZA A AG Negative Normal NEGATIVE SEE COMMENT [facility] Comment on above: Performed By: #### C BC #### [facility] [address] [place] [address] Dr. Nicky Simmons INFLUENZA B AG Negative Normal NEGATIVE SEE COMMENT [facility] Comment on above: Performed By: #### C BC #### [facility] [address] [place] [address] Dr. Nicky Simmons INTERNAL CONTROLS Within Normal Limits Normal Wi thin Normal Limits [facility] Comment on above: Performed By: #### C BC #### [facility] [address] [address] [address] Nicky Simmons RESPIRATORY PANEL PLUSon Adenovirus Not detected Normal NOT DETECTED [facility] Comment on above: Performed By: #### R SPLUS ####[facility] [address] [place] [address]Dr. Nicky Simmons B. Parapertusis Not detected Normal NOT DETECTED [facility] Comment on above: Performed By: #### R SPLUS ####[facility] [address] [place] [address]DrBella Simmons B. Pertussis Not detected Normal NOT DETECTED [facility] Comment on above: Performed By: #### R SPLUS ####[facility] [address] [place] [address]Dr. Nicky Simmons Chlamydia Pneumoniae Not detected Normal NOT DETECTED [facility] Comment on above: Performed By: #### R SPLUS ####[facility] [address] [place], [place] [address]Dr. Nicky Simmons Coronavirus 229E Not detected Normal NOT DETECTED [facility] Comment on above: Performed By: #### R SPLUS ####[facility] [address] [place], [place] [address]Dr. Nicky Simmons Coronavirus HKU1 Not detected Normal NOT DETECTED [facility] Comment on above: Performed By: #### R SPLUS ####[facility] [address] [place], [place] [address] NL63 Not detected Normal NOT DETECTED [facility] Comment on above: Performed By: #### R SPLUS ####[facility] [address] [place], [place] [address]Dr. uday [facility] Coronavirus OC43 Not detected Normal NOT DETECTED [facility] Comment on above: Performed By: #### R SPLUS ####[facility] [address] [place], [place] [address]Dr. Nicky Simmons Influenza A H1 2009 Not detected Normal NOT DETECTED [facility] Comment on above: Performed By: #### R SPLUS ####[facility] [address] [place], [place] [address]Dr. Nicky Simmons Influenza A H3 Not detected Normal NOT DETECTED [facility] Comment on above: Performed By: #### R SPLUS ####[facility] [address] [place], [place] [address]Dr. Nicky Simmons Influenza B Not detected Normal NOT DETECTED [facility] Comment on above: Performed By: #### R SPLUS ####[facility] [address] [place], [place] [address]Dr. Yiuday Simmons Metapneumovirus Not detected Normal NOT DETECTED [facility] Comment on above: Performed By: #### R SPLUS ####[facility] [address] [place] [address]Dr. Dulceuday Simmons Mycoplas. Pneumoniae Not detected Normal NOT DETECTED [facility] Comment on above: Performed By: #### R SPLUS ####[facility] [address] [place] [id number]. Yiuday Simmons Parainfluenza 1 Not detected Normal NOT DETECTED [facility] Comment on above: Performed By: #### R SPLUS ####[facility] [address] [place], [place] [address]Dr. Yilan Simmons Parainfluenza 2 Not detected Normal NOT DETECTED [facility] Comment on above: Performed By: #### R SPLUS ####[facility] [address] [place], [place] [address]Dr. Yiuday Simmons Parainfluenza 3 Not detected Normal NOT DETECTED [facility] Comment on above: Performed By: #### R SPLUS ####[facility] X[address] [place], [place] [address]Dr. Yiuday Simmons Parainfluenza 4 Not detected Normal NOT DETECTED [facility] Comment on above: Performed By: #### R SPLUS ####[facility] [address] [place], [place] [address]Dr. Yiuday Simmons Rhino/Enterovirus Detected Abnormal NOT DETECTED [facility] Comment on above: Performed By: #### R SPLUS ####[facility] [address] [place], [place] [address]Dr. Yilan Simmons RP2 Header 1 RESPIRATORY PANEL: VIRUSES Normal [facility] Comment on above: Performed By: #### R SPLUS ####[facility] [address] [place], [place] [address]Dr. Dulcelan Simmons RP2 Header 2 RESPIRATORY PANEL: BACTERIA Normal [facility] Comment on above: Performed By: #### R SPLUS ####[facility] [address] [place], [place] [address]Dr. Yilan Simmons RSV Not detected Normal NOT DETECTED [facility] Comment on above: Performed By: #### R SPLUS ####[facility] [address] [place], [place] [address]JyBella Simmons SARS-CoV-2 (COVID-19) RNA GOKUL+probe Ql (Unsp spec) Not detected Normal NOT DETECTED [facility] Comment on above: Performed By: #### R SPLUS ####[facility] [address] [place], [place] [address]Yv. Nicky Simmons Result Comment: When diagnostic testing [...] for this test is supported by the [place] of Health and Human Service's declaration that [...] used). Performed By: #### I NFLUAB #### [facility] [address] [address] [address] Nicky Simmons STREPT SCREENon 05-17-2022 STREP SCREEN A Negative Normal NEGATIVE [facility] Comment on above: Performed By: #### S SCRN, GRASTCX #### [facility] [address] [place] [address] [address] Nicky Simmons XR CHEST 1 Von [...] LOUIE LIRIANO Date: 2022-05-17 15:42 Normal [facility] CBC AUTO DIFFon 04-16-2022 BASO # 0.1 103/ul Normal 0.0-0.1 [facility] Comment on above: Performed By: #### C BC #### [facility] [address] [place] [address] Dr. Nicky Simmons Basophils/100 WBC (Bld) 0.5 % Normal 0.2-2.0 [facility] Comment on above: Performed By: #### C BC #### [facility] [address] [place] [address] Dr. Nicky Simmons EO # 0.2 103/ul Normal 0.0-0.7 [facility] Comment on above: Performed By: #### C BC #### [facility] [address] [place] [address] Dr. Nicky Simmons Eosinophils/100 WBC (Bld) 2.1 % Normal 0.9-7.0 [facility] Comment on above: Performed By: #### C BC #### [facility] [address] [place] [address] Dr. Nicky Simmons Erythrocyte distribution width (RBC) [Ratio] 13.0 % Normal 11.0-15.0 [facility] Comment on above: Performed By: #### C BC #### [facility] [address] [place] [address] Dr. Nicky Simmons Hematocrit (Bld) [Volume fraction] 41.7 % Normal 36.0-48.0 [facility] Comment on above: Performed By: #### C BC #### [facility] [address] [place] [address] Dr. Nicky Simmons Hemoglobin (Bld) [Mass/Vol] 13.5 g/dL Normal 12.0-16.0 [facility] Comment on above: Performed By: #### C BC #### [facility] [address] [place] [address] Dr. Nicky Simmons IG # 0.06 10e3/ul Critically high 0.00-0.03 [facility] Comment on above: Performed By: #### C BC #### [facility] [address] [place] [address] Dr. Nicky Simmons IG % 0.6 % Critically high 0.0-0.5 [facility] Comment on above: Performed By: #### C BC #### [facility] [address] [place] [address] Dr. Nicky Simmons LYMPH # 2.4 103/ul Normal 1.2-3.8 [facility] Comment on above: Performed By: #### C BC #### [facility] [address] [place] [address] Dr. Nicky Simmons Lymphocytes/100 WBC (Bld) 23.1 % Normal 20.5-60.0 [facility] Comment on above: Performed By: #### C BC #### [facility] [address] [place] [address] Dr. Nicky Simmons MANUAL DIFF REQ NO Normal [facility] Comment on above: Performed By: #### C BC #### [facility] [address] [place] [address] Dr. Nicky Simmons MCH (RBC) [Entitic mass] 29.2 pg Normal 26.7-34.0 [facility] Comment on above: Performed By: #### C BC #### [facility] [address] [place] [address] Dr. Nicky Simmons MCHC (RBC) [Mass/Vol] 32.4 g/dL Normal 29.9-35.2 [facility] Comment on above: Performed By: #### C BC #### [facility] [address] [place] [address] Dr. Nicky Simmons MCV (RBC) [Entitic vol] 90.1 fL Normal 81.0-99.0 [facility] Comment on above: Performed By: #### C BC #### [facility] [address] [place] [address] Dr. Nicky Simmons MONO # 0.6 103/ul Normal 0.3-0.8 [facility] Comment on above: Performed By: #### C BC #### [facility] [address] [address] [address] Nicky Simmons Monocytes/100 WBC (Bld) 5.6 % Normal 1.7-12.0 [facility] Comment on above: Performed By: #### C BC #### [facility] [address] [address] [address] Nicky Simmons NEUT # 7.2 103/ul Critically high 1.4-6.5 [facility] Comment on above: Performed By: #### C BC #### [facility] [address] [place] [address] Dr. Nicky Simmons Neutrophils/100 WBC (Bld) 68.1 % Normal 43.0-75.0 [facility] Comment on above: Performed By: #### C BC #### [facility] [address] [place] [address] Dr. Nicky Simmons Platelet mean volume (Bld) [Entitic vol] 9.6 fL Normal 9.5-13.5 [facility] Comment on above: Performed By: #### C BC #### [facility] [address] [place] [address] Dr. Nicky Simmons PLT 339 103/ul Normal 150-450 [facility] Comment on above: Performed By: #### C BC #### [facility] [address] [place] [address] Dr. Nicky Simmons RBC 4.63 106/ul Normal 4.20-5.40 [facility] Comment on above: Performed By: #### C BC #### [facility] [address] [place] [address] Dr. Nicky Simmons WBC 10.6 103/ul Normal 4.0-11.0 [facility] Comment on above: Performed By: #### C BC #### [facility] [address] [place] [address] Dr. Nicky Simmons PREG HCG QUALon 04-16-2022 , QUAL Negative Normal NEGATIVE [facility] Comment on above: Performed By: #### P REG ####[facility] [address] [place] [address]Dr. Nicky Simmons Covid-19 PCR (CVDTB)on SARS-CoV-2 (COVID-19) RNA GOKUL+probe Ql (Unsp spec) Not detected Normal NOT DETECTED [facility] Comment on above: Result Comment: This test is not yet approved or cleared by the [place] FDA. When there are no FDA-approved or cleared tests available, and other criteria are met, FDA can make tests available under an emergency access mechanism called an Emergency Use Authorization (EUA). The EUA for this test is supported by the [employer] of Health and Human Service's (HHS's) declaration [...] with SARS-CoV-2. Performed By: #### C VDTBH ####[facility] [address] [place], [place] [address]Dr. Nicky Simmons CBC AUTO DIFFon 03-23-2022 BASO # 0.0 103/ul Normal 0.0-0.1 [facility] Comment on above: Performed By: #### I NFLUAB #### [facility] [address] [place] [address] Dr. Nicky Simmons Basophils/100 WBC (Bld) 0.4 % Normal 0.2-2.0 [facility] Comment on above: Performed By: #### I NFLUAB #### [facility] [address] [place] [address] Dr. Nicky Simmons EO # 0.4 103/ul Normal 0.0-0.7 [facility] Comment on above: Performed By: #### I NFLUAB #### [facility] [address] [address] [address] Nicky Simmons Eosinophils/100 WBC (Bld) 3.3 % Normal 0.9-7.0 [facility] Comment on above: Performed By: #### I NFLUAB #### [facility] [address] [place] [address] Dr. Nicky Simmons Erythrocyte distribution width (RBC) [Ratio] 12.9 % Normal 11.0-15.0 [facility] Comment on above: Performed By: #### I NFLUAB #### [facility] [address] [place] [address] Dr. Nicky Simmons Hematocrit (Bld) [Volume fraction] 41.7 % Normal 36.0-48.0 [facility] Comment on above: Performed By: #### I NFLUAB #### [facility] [address] [place] [address] Dr. Nicky Simmons Hemoglobin (Bld) [Mass/Vol] 13.7 g/dL Normal 12.0-16.0 [facility] Comment on above: Performed By: #### I NFLUAB #### [facility] [address] [place] [address] Dr. Nicky Simmons IG # 0.04 10e3/ul Critically high 0.00-0.03 [facility] Comment on above: Performed By: #### I NFLUAB #### [facility] [address] [place] [address] Dr. Nicky Simmons IG % 0.4 % Normal 0.0-0.5 [facility] Comment on above: Performed By: #### I NFLUAB #### [facility] [address] [place] [address] Dr. Nicky Simmons LYMPH # 2.5 103/ul Normal 1.2-3.8 [facility] Comment on above: Performed By: #### I NFLUAB #### [facility] [address] [place] [address] Dr. Nicky Simmons Lymphocytes/100 WBC (Bld) 22.3 % Normal 20.5-60.0 [facility] Comment on above: Performed By: #### I NFLUAB #### [facility] [address] [place] [address] Dr. Nicky Simmons MANUAL DIFF REQ NO Normal [facility] Comment on above: Performed By: #### I NFLUAB #### [facility] [address] [place] [address] Dr. Nicky Simmons MCH (RBC) [Entitic mass] 29.3 pg Normal 26.7-34.0 [facility] Comment on above: Performed By: #### I NFLUAB #### [facility] [address] [place] [address] Dr. Nicky Simmons MCHC (RBC) [Mass/Vol] 32.9 g/dL Normal 29.9-35.2 [facility] Comment on above: Performed By: #### I NFLUAB #### [facility] [address] [place] [address] Dr. Nicky Simmons MCV (RBC) [Entitic vol] 89.1 fL Normal 81.0-99.0 [facility] Comment on above: Performed By: #### I NFLUAB #### [facility] [address] [place] [address] Dr. Nicky Simmons MONO # 0.6 103/ul Normal 0.3-0.8 [facility] Comment on above: Performed By: #### I NFLUAB #### [facility] [address] [place] [address] Dr. Nicky Simmons Monocytes/100 WBC (Bld) 5.4 % Normal 1.7-12.0 [facility] Comment on above: Performed By: #### I NFLUAB #### [facility] [address] [place] [address] Dr. Nicky Simmons NEUT # 7.6 103/ul Critically high 1.4-6.5 [facility] Comment on above: Performed By: #### I NFLUAB #### [facility] [address] [place] [address] Dr. Nicky Simmons Neutrophils/100 WBC (Bld) 68.2 % Normal 43.0-75.0 [facility] Comment on above: Performed By: #### I NFLUAB #### [facility] [address] [address] [address] Nicky Simmons Platelet mean volume (Bld) [Entitic vol] 9.2 fL Critically low 9.5-13.5 [facility] Comment on above: Performed By: #### I NFLUAB #### [facility] [address] [address] [address] Nicky Simmons PLT 387 103/ul Normal 150-450 [facility] Comment on above: Performed By: #### I NFLUAB #### [facility] [address] [address] [address] Nicky Simmons RBC 4.68 106/ul Normal 4.20-5.40 [facility] Comment on above: Performed By: #### I NFLUAB #### [facility] [address] [address] [address] Nicky Simmons WBC 11.1 103/ul Critically high 4.0-11.0 [facility] Comment on above: Performed By: #### I NFLUAB #### [facility] [address] [address] [address] Nicky Simmons CRPon 03-23-2022 CRP 1.8 mg/dL Critically high <=1.0 [facility] Comment on above: Performed By: #### I NFLUAB #### [facility] [address] [address] [address] Nicky Simmons PROF CHEM 8 (BAS METB)on Anion gap [Moles/Vol] 12.2 mmol/L Normal [facility] Comment on above: Performed By: #### I NFLUAB #### [facility] [address] [address] [address] Nicky Simmons Calcium [Mass/Vol] 8.8 mg/dL Normal 8.5-10.1 [facility] Comment on above: Performed By: #### I NFLUAB #### [facility] [address] [address] [address] Nicky Simmons Chloride [Moles/Vol] 107 mmol/L Normal 98-107 [facility] Comment on above: Performed By: #### I NFLUAB #### [facility] [address] [place] [address] Dr. Nicky Simmons CO2 [Moles/Vol] 23.8 mmol/L Normal 21.0-32.0 [facility] Comment on above: Performed By: #### I NFLUAB #### [facility] [address] [address] [address] Nicky Simmons Creatinine [Mass/Vol] 0.78 mg/dL Normal 0.55-1.02 [facility] Comment on above: Performed By: #### I NFLUAB #### [facility] [address] [place] [address] Dr. Nicky Simmons EGFR-AF BURKINAN >60 Normal >=60 [facility] Comment on above: Performed By: #### I NFLUAB #### [facility] [address] [place] [address] Dr. Nicky Simmons EGFR-NON AF BURKINAN >60 Normal >=60 [facility] Comment on above: Performed By: #### I NFLUAB #### [facility] [address] [address] [address] Nicky Simmons Glucose [Mass/Vol] 121 mg/dL Critically high 74-106 [facility] Comment on above: Performed By: #### I NFLUAB #### [facility] [address] [place] [address] Dr. Nicky Simmons Potassium [Moles/Vol] 4.0 mmol/L Normal 3.5-5.1 [facility] Comment on above: Performed By: #### I NFLUAB #### [facility] [address] [address] [address] Nicky Simmons Sodium [Moles/Vol] 139 mmol/L Normal 136-145 [facility] Comment on above: Performed By: #### I NFLUAB #### [facility] [address] [address] [address] Nicky Simmons Urea nitrogen [Mass/Vol] 11.0 mg/dL Normal 7.0-18.0 [facility] Comment on above: Performed By: #### I NFLUAB #### [facility] [address] [address] [address] Nicky Simmons Urea nitrogen/Creatinine [Mass ratio] 14.1 mg/mg Normal [facility] Comment on above: Performed By: #### I NFLUAB #### [facility] [address] [address] [address] Nicky Simmons SED RATE WESTERGRENon 2021 SED RATE 36 mm/hr Critically high <=20 [facility] Comment on above: Performed By: #### C BC #### [facility] [address] [place] [address] Dr. Nicky Simmons XR KNEE LT 4V [...] MARIAM SANCHEZ Date: 2022-02-27 22:00 Normal [facility] CBC AUTO DIFFon 02-23-2022 BASO # 0.1 103/ul Normal 0.0-0.1 [facility] Comment on above: Performed By: #### C BC #### [facility] [address] [place] [address] Dr. Nicky Simmons Basophils/100 WBC (Bld) 0.6 % Normal 0.2-2.0 [facility] Comment on above: Performed By: #### C BC #### [facility] [address] [place] [address] Dr. Nicky Simmons EO # 0.3 103/ul Normal 0.0-0.7 [facility] Comment on above: Performed By: #### C BC #### [facility] [address] [place] [address] Dr. Nicky Simmons Eosinophils/100 WBC (Bld) 2.5 % Normal 0.9-7.0 [facility] Comment on above: Performed By: #### C BC #### [facility] [address] [place] [address] Dr. Nicky Simmons Erythrocyte distribution width (RBC) [Ratio] 12.8 % Normal 11.0-15.0 [facility] Comment on above: Performed By: #### C BC #### [facility] [address] [place] [address] Dr. Nicky Simmons Hematocrit (Bld) [Volume fraction] 39.5 % Normal 36.0-48.0 [facility] Comment on above: Performed By: #### C BC #### [facility] [address] [place] [address] Dr. Nicky Simmons Hemoglobin (Bld) [Mass/Vol] 13.0 g/dL Normal 12.0-16.0 [facility] Comment on above: Performed By: #### C BC #### [facility] [address] [place] [address] Dr. Nicky Simmons IG # 0.04 10e3/ul Critically high 0.00-0.03 [facility] Comment on above: Performed By: #### C BC #### [facility] [address] [place] [address] Dr. Nicky Simmons IG % 0.3 % Normal 0.0-0.5 [facility] Comment on above: Performed By: #### C BC #### [facility] [address] [place] [address] Dr. Nicky Simmons LYMPH # 3.0 103/ul Normal 1.2-3.8 [facility] Comment on above: Performed By: #### C BC #### [facility] [address] [place] [address] Dr. Nicky Simmons Lymphocytes/100 WBC (Bld) 24.4 % Normal 20.5-60.0 [facility] Comment on above: Performed By: #### C BC #### [facility] [address] [place] [address] Dr. Nicky Simmons MANUAL DIFF REQ NO Normal [facility] Comment on above: Performed By: #### C BC #### [facility] [address] [address] [address] Nicky Simmons MCH (RBC) [Entitic mass] 29.4 pg Normal 26.7-34.0 [facility] Comment on above: Performed By: #### C BC #### [facility] [address] [address] [address] Nicky Simmons MCHC (RBC) [Mass/Vol] 32.9 g/dL Normal 29.9-35.2 [facility] Comment on above: Performed By: #### C BC #### [facility] [address] [address] [address] Nicky Simmons MCV (RBC) [Entitic vol] 89.4 fL Normal 81.0-99.0 [facility] Comment on above: Performed By: #### C BC #### [facility] [address] [place] [address] Dr. Nicky Simmons MONO # 0.7 103/ul Normal 0.3-0.8 [facility] Comment on above: Performed By: #### C BC #### [facility] [address] [address] [address] Nicky Simmons Monocytes/100 WBC (Bld) 6.0 % Normal 1.7-12.0 [facility] Comment on above: Performed By: #### C BC #### [facility] [address] [address] [address] Nicky Simmons NEUT # 8.0 103/ul Critically high 1.4-6.5 [facility] Comment on above: Performed By: #### C BC #### [facility] [address] [place] [address] Dr. Nicky Simmons Neutrophils/100 WBC (Bld) 66.2 % Normal 43.0-75.0 [facility] Comment on above: Performed By: #### C BC #### [facility] [address] [place] [address] Dr. Nicky Simmons Platelet mean volume (Bld) [Entitic vol] 9.1 fL Critically low 9.5-13.5 [facility] Comment on above: Performed By: #### C BC #### [facility] [address] [address] [address] Nicky Simmons PLT 367 103/ul Normal 150-450 [facility] Comment on above: Performed By: #### C BC #### [facility] [address] [place] [address] Dr. Nicky Simmons RBC 4.42 106/ul Normal 4.20-5.40 [facility] Comment on above: Performed By: #### C BC #### [facility] [address] [place] [address] Dr. Nicky Simmons WBC 12.1 103/ul Critically high 4.0-11.0 [facility] Comment on above: Performed By: #### C BC #### [facility] [address] [place] [address] Dr. Nicky Simmons ER URINE PROFILEon 2 Bilirubin Ql (U) Negative Normal NEGATIVE [facility] Comment on above: Performed By: #### I NFLUAB #### [facility] [address] [place] [address] Dr. Nicky Simmons Clarity (U) CLEAR Normal CLEAR [facility] Comment on above: Performed By: #### I NFLUAB #### [facility] [address] [place] [address] Dr. Nicky Simmons Color (U) RED Abnormal YELLOW [facility] Comment on above: Performed By: #### I NFLUAB #### [facility] [address] [place] [address] Dr. Nicky NORTON A micrscopic examination will be performed if indicated. Normal [facility] Comment on above: Performed By: #### I NFLUAB #### [facility] [address] [place] [address] Dr. Nicky Simmons Glucose Ql (U) Negative Normal NEGATIVE [facility] Comment on above: Performed By: #### I NFLUAB #### [facility] [address] [place] [address] Dr. Nicky Simmons Hemoglobin Ql (U) LARGE Abnormal NEGATIVE [facility] Comment on above: Performed By: #### I NFLUAB #### [facility] [address] [address] [address] Nicky Simmons Ketones Ql (U) Negative Normal NEGATIVE [facility] Comment on above: Performed By: #### I NFLUAB #### [facility] [address] [place] [address] Dr. Nicky Simmons LEUKOCYTES Negative Normal NEGATIVE [facility] Comment on above: Performed By: #### I NFLUAB #### [facility] [address] [address] [address] Nicky Simmons Nitrite Ql (U) Negative Normal NEGATIVE [facility] Comment on above: Performed By: #### I NFLUAB #### [facility] [address] [place] [address] Dr. Nicky Simmons pH (U) 8.5 [pH] Normal 5-9 [facility] Comment on above: Performed By: #### I NFLUAB #### [facility] [address] [place] [address] Dr. Nicky Simmons SPEC GRAVITY 1.015 Normal 1.005-<=1.025 [facility] Comment on above: Performed By: #### I NFLUAB #### [facility] [address] [place] [address] Dr. Nicky Simmons UA PROTEIN TRACE Normal NEGATIVE/ TRACE [facility] Comment on above: Performed By: #### I NFLUAB #### [facility] [address] [place] [address] Dr. Nicky Simmons UR MICRO IND INDICATED Normal [facility] Comment on above: Performed By: #### I NFLUAB #### [facility] [address] [address] [address] Nicky Simmons Urobilinogen Qn (U) 0.2 {Yan'U}/dL Normal 0.2 - 1. 0 [facility] Comment on above: Performed By: #### I NFLUAB #### [facility] [address] [place] [address] Dr. Nicky Simmons SED RATE WESTERGRENon 2021 SED RATE 30 mm/hr Critically high <=20 [facility] Comment on above: Performed By: #### S EDR ####[facility] [id number] [id number][address] Nicky Simmons URINE MICROSCOPIC ONLYon BACTERIA TRACE Abnormal NONE SEEN [facility] Comment on above: Performed By: #### I NFLUAB #### [facility] [address] [address] [address] Nicky Simmons Bacteria identified Cx Nom (U) NOT INDICATED Normal [facility] Comment on above: Performed By: #### I NFLUAB #### [facility] [address] [place] [address] Dr. Nicky Simmons CAST NONE SEEN Normal NONE SEEN [facility] Comment on above: Performed By: #### I NFLUAB #### [facility] [address] [place] [address] Dr. Nicky Simmons Crystals LM Nom (Urine sed) NONE SEEN Normal NONE SEEN [facility] Comment on above: Performed By: #### I NFLUAB #### [facility] [address] [address] [address] Nicky Simmons Epithelial cells LM Ql (Urine sed) RARE Normal NONE SEEN /RARE [facility] Comment on above: Performed By: #### I NFLUAB #### [facility] [address] [place] [address] Dr. Nicky Simmons MUCOUS NONE SEEN Normal NONE SEEN [facility] Comment on above: Performed By: #### I NFLUAB #### [facility] [address] [address] [address] Nicky Simmons RBC 75-100 Abnormal 0-2 [facility] Comment on above: Performed By: #### I NFLUAB #### [facility] [address] [place] [address] Dr. Nicky Simmons WBC 2-5 Abnormal NONE SEEN [facility] Comment on above: Performed By: #### I NFLUAB #### [facility] [address] [place] [address] Dr. Nicky Simmons US PELVISon 02-23-2022 US [...] by: SREE LYLE Date: 2022-02-23 13:53 Normal [facility] C-Reactive Proteinon 020 CRP [Mass/Vol] 2.8 mg/L Normal 0.0-5.0 [facility] Comment on above: Performed By: #### C DP, CRP, CP, TROPI, HCG, LD #### [facility] [address] [place] [address] Supervisor [employer]: Christopher Dorsey DO CRP [Mass/Vol] 2.8 mg/L 0 - 5 mg/L [place], [place] CBC Auto Differentialon 02-04 Basophils (Bld) [#/Vol] 0.00 10*3/uL [place] Basophils/100 WBC (Bld) 0 % 0 - 2 % [place] Differential Type NOT REPORTED [place] Eosinophils (Bld) [#/Vol] 0.20 10*3/uL [place] Eosinophils/100 WBC (Bld) 3 % 0 - 4 % [place] Erythrocyte distribution width (RBC) [Ratio] 13.5 % 11.5 - 14.9 % [place] Hematocrit (Bld) [Volume fraction] 39.3 % 36 - 46 % [place] Hemoglobin (Bld) [Mass/Vol] 12.9 g/dL 12 - 16 g/dL [place] Lymphocytes (Bld) [#/Vol] 2.00 10*3/uL [place] Lymphocytes/100 WBC (Bld) 29 % 24 - 44 % [place] MCH (RBC) [Entitic mass] 29.3 pg 26 - 34 pg [place] MCHC (RBC) [Mass/Vol] 32.7 g/dL 31 - 37 g/dL [place] MCV (RBC) [Entitic vol] 89.6 fL 80 - 100 fL [place] Monocytes (Bld) [#/Vol] 0.50 10*3/uL [place] Monocytes/100 WBC (Bld) 7 % 1 - 7 % [place] Platelet mean volume (Bld) [Entitic vol] 8.3 fL 6 - 12 fL [place] Platelets (Bld) [#/Vol] 238 10*3/uL [place] Platelets (Bld) [#/Vol] NOT REPORTED [place] RBC (Bld) [#/Vol] 4.39 10*6/uL 4 - 5.2 m/uL [place] RBC morphology finding Nom (Bld) NOT REPORTED [place] Segmented neutrophils/100 WBC (Bld) 61 % 36 - 66 % [place] Segs Absolute 4.20 [place], [place] WBC (Bld) [#/Vol] NOT REPORTED per 100 WBC [place] WBC (Bld) [#/Vol] 7.0 10*3/uL [place] WBC Morphology NOT REPORTED [place], [place] CBC with Diffon 03-01-2020 Abs. Basophil 0.00 k/uL Normal 0.0-0.2 [facility] Comment on above: Performed By: #### C DP, CRP, CP, TROPI, HCG, LD #### [facility] [address] [place] [address] Supervisor [employer]ting: Christopher Dorsey DO Abs.Neutrophil (Seg) 4.20 k/uL Normal 1.3-9.1 [facility] Comment on above: Performed By: #### C DP, CRP, CP, TROPI, HCG, LD #### [facility] [address] [facility] [address] Supervisor [employer]ting: Christopher Dorsey DO Basophils/100 WBC (Bld) 0 % Normal 0-2 [facility] Comment on above: Performed By: #### C DP, CRP, CP, TROPI, HCG, LD #### [facility] [address] [facility] [place] [address] Supervisor [employer]ting: Christopher Dorsey DO Eosinophils (Bld) [#/Vol] 0.20 10*3/uL Normal 0.0-0.4 [facility] Comment on above: Performed By: #### C DP, CRP, CP, TROPI, HCG, LD #### [facility] [address] [facility] [place] [address] Supervisor [employer]ting: Christopher Dorsey DO Eosinophils/100 WBC (Bld) 3 % Normal 0-4 [facility] Comment on above: Performed By: #### C DP, CRP, CP, TROPI, HCG, LD #### [facility] [address] [facility] [place] [address] Supervisor [employer]ting: Christopher Dorsey DO Erythrocyte distribution width (RBC) [Ratio] 13.5 % Normal 11.5-14.9 [facility] Comment on above: Performed By: #### C DP, CRP, CP, TROPI, HCG, LD #### [facility] [address] [facility] [place] [address] Supervisor [employer]ting: Christopher Dorsey DO Hematocrit (Bld) [Volume fraction] 39.3 % Normal 36-46 [facility] Comment on above: Performed By: #### C DP, CRP, CP, TROPI, HCG, LD #### [facility] [address] [facility] [place] [address] Supervisor [employer]ting: Christopher Dorsey DO Hemoglobin (Bld) [Mass/Vol] 12.9 g/dL Normal 12.0-16.0 [facility] Comment on above: Performed By: #### C DP, CRP, CP, TROPI, HCG, LD #### [facility] [address] [place] [address] Supervisor [employer]ting: Christopher Dorsey DO Lymphocytes (Bld) [#/Vol] 2.00 10*3/uL Normal 1.0-4.8 [facility] Comment on above: Performed By: #### C DP, CRP, CP, TROPI, HCG, LD #### [facility] [place] [address] Supervisor [employer]: Christopher Dorsey DO Lymphocytes/100 WBC (Bld) 29 % Normal 24-44 [facility] Comment on above: Performed By: #### C DP, CRP, CP, TROPI, HCG, LD #### [facility] [place] [address] Supervisor [employer]ting: Christopher Dorsey DO MCH (RBC) [Entitic mass] 29.3 pg Normal 26-34 [facility] Comment on above: Performed By: #### C DP, CRP, CP, TROPI, HCG, LD #### [facility] [place] [address] Supervisor [employer]ting: Christopher Dorsey DO MCHC (RBC) [Mass/Vol] 32.7 g/dL Normal 31-37 [facility] Comment on above: Performed By: #### C DP, CRP, CP, TROPI, HCG, LD #### [facility] [address] [place] [id number] Supervisor [employer]ting: Christopher Dorsey DO MCV (RBC) [Entitic vol] 89.6 fL Normal 80-100 [facility] Comment on above: Performed By: #### C DP, CRP, CP, TROPI, HCG, LD #### [facility] [address] [place] [address] Supervisor [employer]ting: Christopher Dorsey DO Monocytes (Bld) [#/Vol] 0.50 10*3/uL Normal 0.1-1.3 [facility] Comment on above: Performed By: #### C DP, CRP, CP, TROPI, HCG, LD #### [facility] [address] [place] [address] Supervisor [employer]ting: Christopher Dorsey DO Monocytes/100 WBC (Bld) 7 % Normal 1-7 [facility] Comment on above: Performed By: #### C DP, CRP, CP, TROPI, HCG, LD #### [facility] [address] [facility] [address] Supervisor [employer]ting: Christopher Dorsey DO Neutrophil (Seg) 61 % Normal 36-66 [facility] Comment on above: Performed By: #### C DP, CRP, CP, TROPI, HCG, LD #### [facility] [address] [facility] [address] Supervisor [employer]: Christopher Dorsey DO Platelet mean volume (Bld) [Entitic vol] 8.3 fL Normal 6.0-12.0 [facility] Comment on above: Performed By: #### C DP, CRP, CP, TROPI, HCG, LD #### [facility] [address] [place] [address] Supervisor [employer]ting: Christopher Dorsey DO Platelets (Bld) [#/Vol] 238 10*3/uL Normal 150-450 [facility] Comment on above: Performed By: #### C DP, CRP, CP, TROPI, HCG, LD #### [facility] [address] [place] [address] Supervisor [employer]: Christopher Dorsey DO RBC (Bld) [#/Vol] 4.39 10*6/uL Normal 4.0-5.2 [facility] Comment on above: Performed By: #### C DP, CRP, CP, TROPI, HCG, LD #### [facility] [address] [facility] [place] [address] Supervisor [employer]ting: Christopher Dorsey DO WBC (Bld) [#/Vol] 7.0 10*3/uL Normal 3.5-11.0 [facility] Comment on above: Performed By: #### C DP, CRP, CP, TROPI, HCG, LD #### [facility] [address] [place] [address] Supervisor [employer]ting: Christopher Dorsey DO Abs.Imm.Granulocyte NOT REPORTED Normal 0.00-0.30 [facility] Comment on above: Performed By: #### C DP, CRP, CP, TROPI, HCG, LD #### [facility] [address] [place] [address] Supervisor [employer]ting: Christopher Dorsey DO Auto Diff Performed NOT REPORTED Normal [facility] Comment on above: Performed By: #### C DP, CRP, CP, TROPI, HCG, LD #### [facility] [address] [place] [address] Supervisor [employer]ting: Christopher Dorsey DO Immature granulocytes (Bld) [#/Vol] NOT REPORTED Normal 0 [facility] Comment on above: Performed By: #### C DP, CRP, CP, TROPI, HCG, LD #### [facility] [address] [place] [address] Supervisor St[employer]ting: Christopher Dorsey DO NRBC Automated NOT REPORTED Normal [facility] Comment on above: Performed By: #### C DP, CRP, CP, TROPI, HCG, LD #### [facility] [address] [facility] [place] [address] Supervisor [employer]ting: Christopher Dorsey DO Platelets (Bld) [#/Vol] NOT REPORTED Normal [facility] Comment on above: Performed By: #### C DP, CRP, CP, TROPI, HCG, LD #### [facility] [place] [address] Supervisor St[employer]ting: Christopher Dorsey DO RBC morphology finding Nom (Bld) NOT REPORTED Normal [facility] Comment on above: Performed By: #### C DP, CRP, CP, TROPI, HCG, LD #### [facility] [address] [place] [address]. [place] [address] Supervisor Stave [employer]ting: Christopher Dorsey DO WBC Morphology NOT REPORTED Normal [facility] Comment on above: Performed By: #### C DP, CRP, CP, TROPI, HCG, LD #### [facility] [address] [place] [address]. [place] [address] Supervisor St[employer]ting: Christopher Dorsey DO Comp Metabolic Profon 2019 Bilirubin Ql (U) <0.15 Low 0.3-1.2 [facility] Comment on above: Performed By: #### C DP, CRP, CP, TROPI, HCG, LD #### [facility] [address] [place] [address]. [place] [address] Supervisor Stave [employer]ting: Christopher Dorsey DO (cont.) Normal [facility] Comment on above: Result Comment: Aver age GFR for 30-39 years old: 107 mL/min/1.73sq m Chronic Kidney Disease: <60 mL/min/1.73sq m Kidney failure: <15 mL/min/1.73sq m eGFR calculated using average adult body mass. Additional eGFR calculator available at: http://www.[employer]/multiple_crcl_2012.htm Performed By: #### C DP, CRP, CP, TROPI, HCG, LD #### [facility] [address] [place] [address] Supervisor Stave [employer]ting: Christopher Dorsey DO Albumin [Mass/Vol] 3.7 g/dL Normal 3.5-5.2 [facility] Comment on above: Performed By: #### C DP, CRP, CP, TROPI, HCG, LD #### [facility] [address] [place] [address] Supervisor Stave [employer]ting: Christopher Dorsey DO Alkaline Phos 67 U/L Normal 35-104 [facility] Comment on above: Performed By: #### C DP, CRP, CP, TROPI, HCG, LD #### [facility] [address] [place] [address] Supervisor [employer]ting: Christopher Dorsey DO ALT [Catalytic activity/Vol] 12 U/L Normal 5-33 [facility] Comment on above: Performed By: #### C DP, CRP, CP, TROPI, HCG, LD #### [facility] [address] [place] [address] Supervisor [employer]ting: Christopher Dorsey DO Anion gap [Moles/Vol] 12 mmol/L Normal 9-17 [facility] Comment on above: Performed By: #### C DP, CRP, CP, TROPI, HCG, LD #### [facility] [address] [place] [address] Supervisor [employer]ting: Christopher Dorsey DO AST [Catalytic activity/Vol] 13 U/L Normal <32 [facility] Comment on above: Performed By: #### C DP, CRP, CP, TROPI, HCG, LD #### [facility] [address] [place] [address] Supervisor St[employer]ting: Christopher Dorsey DO Calcium [Mass/Vol] 8.7 mg/dL Normal 8.6-10.4 [facility] Comment on above: Performed By: #### C DP, CRP, CP, TROPI, HCG, LD #### [facility] [address] [place] [address] Supervisor [employer]ting: Christopher Dorsey DO Chloride [Moles/Vol] 110 mmol/L High 98-107 [facility] Comment on above: Performed By: #### C DP, CRP, CP, TROPI, HCG, LD #### [facility] [address] [place] [address] Supervisor [employer]: Christopher Dorsey DO CO2 [Moles/Vol] 18 mmol/L Low 20-31 [facility] Comment on above: Performed By: #### C DP, CRP, CP, TROPI, HCG, LD #### [facility] [address] [place] [address] Supervisor Stave Cutting: Chritsopher Dorsey DO Creatinine [Mass/Vol] 0.62 mg/dL Normal 0.50-0.90 [facility] Comment on above: Performed By: #### C DP, CRP, CP, TROPI, HCG, LD #### [facility] [address] [place] [address] Supervisor Stave Cutting: Christopher Dorsey DO GFR, Amer >60 Normal >60 [facility] Comment on above: Performed By: #### C DP, CRP, CP, TROPI, HCG, LD #### [facility] [address] [place] [address] Supervisor Stave Cutting: Christopher Dorsey DO GFR,non Amer >60 Normal >60 [facility] Comment on above: Performed By: #### C DP, CRP, CP, TROPI, HCG, LD #### [facility] [address] [place] [address] Supervisor Stave Cutting: Christopher Dorsey DO Glucose [Mass/Vol] 84 mg/dL Normal 70-99 [facility] Comment on above: Performed By: #### C DP, CRP, CP, TROPI, HCG, LD #### [facility] [address] [facility] [address] Supervisor Stave Cutting: Christopher Dorsey DO Potassium [Moles/Vol] 3.9 mmol/L Normal 3.7-5.3 [facility] Comment on above: Performed By: #### C DP, CRP, CP, TROPI, HCG, LD #### [facility] [address] [facility] [place] [address] Supervisor Stave Cutting: Christopher Dorsey DO Protein [Mass/Vol] 6.3 g/dL Low 6.4-8.3 [facility] Comment on above: Performed By: #### C DP, CRP, CP, TROPI, HCG, LD #### [facility] [address] [facility] [place] [address] Supervisor Stave Cutting: Christopher Dorsey DO Sodium [Moles/Vol] 140 mmol/L Normal 135-144 [facility] Comment on above: Performed By: #### C DP, CRP, CP, TROPI, HCG, LD #### [facility] [address] [facility] [place] [address] Supervisor Stave Cutting: Christopher Dorsey DO Urea nitrogen [Mass/Vol] 11 mg/dL Normal 6-20 [facility] Comment on above: Performed By: #### C DP, CRP, CP, TROPI, HCG, LD #### [facility] [address] [facility] [place] [address] Supervisor Stave Cutting: Christopher Dorsey DO Albumin/Globulin [Mass ratio] NOT REPORTED Normal 1.0-2.5 [facility] Comment on above: Performed By: #### C DP, CRP, CP, TROPI, HCG, LD #### [facility] [address] [facility] [place] [address] Supervisor Stave Cutting: Christopher Dorsey DO BUN/CRE Ratio NOT REPORTED Normal 9-20 [facility] Comment on above: Performed By: #### C DP, CRP, CP, TROPI, HCG, LD #### [facility] [address] [facility] [place] [address] Supervisor Stave Cutting: Christopher Dorsey DO Staging: NOT REPORTED Normal [facility] Comment on above: Performed By: #### C DP, CRP, CP, TROPI, HCG, LD #### [facility] [address] [facility] [place] [address] Supervisor Stave Cutting: Christopher Dorsey DO Comprehensive Metabolic Pane [facility] 03-01-2020 Albumin [Mass/Vol] 3.7 g/dL 3.5 - 5.2 g/dL [place], [place] Albumin/Globulin [Mass ratio] NOT REPORTED [place] ALP [Catalytic activity/Vol] 67 U/L 35 - 104 U/L [place] ALT [Catalytic activity/Vol] 12 U/L 5 - 33 U/L [place] Anion gap [Moles/Vol] 12 mmol/L 9 - 17 mmol/L [place] AST [Catalytic activity/Vol] 13 U/L <32 [place] Bilirubin Ql (U) <0.15 Low 0.3 - 1.2 mg/dL [place] Bun/Cre Ratio NOT REPORTED [place] Calcium [Mass/Vol] 8.7 mg/dL 8.6 - 10. 4 mg/dL [place] Chloride [Moles/Vol] 110 mmol/L High 98 - 10 7 mmol/L [place] CO2 [Moles/Vol] 18 mmol/L Low 20 - 31 mmol/L [place] Creatinine [Mass/Vol] 0.62 mg/dL 0.5 - 0.9 mg/dL [place] GFR >60 >60 mL/min [place] GFR Non- >60 >60 mL/min [place] GFR/1.73 sq M predicted among non-blacks MDRD (S/P/Bld) [Vol rate/Area] NOT REPORTED [place] GFR/1.73 sq M predicted among non-blacks MDRD (S/P/Bld) [Vol rate/Area] [place] Comment on above: Average GFR for 30-3 9 years old: 107 mL/min/1.73sq m Chronic Kidney Disease: <60 mL/min/1.73sq m Kidney failure: <15 mL/min/1.73sq m eGFR calculated using average adult body mass. Additional eGFR calculator available at: http://www.AutoVirt/BuildForge_crcl_2011.htm Glucose [Mass/Vol] 84 mg/dL 70 - 99 mg/dL [place] Interpretation and review of laboratory results Abnormal [place] Potassium [Moles/Vol] 3.9 mmol/L 3.7 - 5.3 mmol/L [place] Protein [Mass/Vol] 6.3 g/dL Low 6.4 - 8.3 g/dL [place] Sodium [Moles/Vol] 140 mmol/L 135 - 144 mmol/L [place] Urea nitrogen [Mass/Vol] 11 mg/dL 6 - 20 mg/dL [place] HCG Screen, Bloodon 03-01-20 20 HCG Qn Negative Normal NEG [facility] Comment on above: Result Comment: Spec imens [...] DP, CRP, CP, TROPI, HCG, LD #### [facility] [address] [place] [address] Supervisor Stave Cutting: Christopher Dorsey, hCG Qual Negative NEGATIVE [place] Comment on above: Specimens with hCG [...] Interpretation and review of laboratory results Abnormal [place] LD 101 U/L Low 135 - 214 U/L [place], [place] Lactate Dehydrogenaseon 02-04 LDH [Catalytic activity/Vol] 101 U/L Low 135-214 [facility] Comment on above: Performed By: #### C DP, CRP, CP, TROPI, HCG, LD #### [facility] [address] [facility] [place], [place] [id number] Supervisor Stave Cutting: Christopher Dorsey DO Otheron 03-01-2020 Immature granulocytes (Bld) [#/Vol] NOT REPORTED [place] Troponinon 03-01-2020 Troponin I.cardiac [Mass/Vol] ng/mL Normal 0-14 [facility] Comment on above: Result Comment: High Sensitivity Troponin values cannot be compared with other Troponin methodologies. Patients with high levels of Biotin oral intake (i.e >5mg/day) may have falsely decreased Troponin levels. Samples collected within 8 hours of biotin intake may require additional information for diagnosis. Performed By: #### T ELMO #### [facility] [address] [facility] [place] [address] Supervisor Stave Cutting: Christopher Dorsey DO Troponin I.cardiac [Mass/Vol] NOT REPORTED Normal <0.03 [facility] Comment on above: Performed By: #### T DAVIDI #### [facility] [address] [facility] [place] [address] Supervisor Stave Cutting: Christopher Dorsey DO Troponin I.cardiac [Mass/Vol] ng/mL Normal 0-14 [facility] Comment on above: Result Comment: High Sensitivity Troponin values cannot be compared with other Troponin methodologies. Patients with high levels of Biotin oral intake (i.e >5mg/day) may have falsely decreased Troponin levels. Samples collected within 8 hours of biotin intake may require additional information for diagnosis. Performed By: #### C DP, CRP, CP, TROPI, HCG, LD #### [facility] [address] [facility] [place] [address] Supervisor Stave Cutting: Christopher Dorsey DO Troponin I.cardiac [Mass/Vol] NOT REPORTED [place] Troponin T.cardiac [Mass/Vol] NOT REPORTED <0.03 ng/mL [place] Troponin, High Sensitivity <6 0 - 14 ng/L [place] Comment on above: High Sensitivity Troponin values cannot be compared with other Troponin methodologies. Patients with high levels of Biotin oral intake (i.e >5mg/day) may have falsely decreased Troponin levels. Samples collected within 8 hours of biotin intake may require additional information for diagnosis. Troponin I.cardiac [Mass/Vol] NOT REPORTED Normal [facility] Comment on above: Performed By: #### C DP, CRP, CP, TROPI, HCG, LD #### [facility] [address] [facility] [place] [address] Supervisor Stave Cutting: Christopher Dorsey DO Troponin I.cardiac [Mass/Vol] NOT REPORTED [place] Troponin T.cardiac [Mass/Vol] NOT REPORTED <0.03 ng/mL [place] Troponin, High Sensitivity <6 0 - 14 ng/L [place] Comment on above: High Sensitivity Troponin [...] Wilfredo Andrade MD 03/01/20 Final result Normal [facility] No acute cardiopulmonary process. [place], [place], [facility] Incoming Radiant Results From [employer] - 03/01/2020 10:19 AM EDT EXAMINATION: ONE [...] osseous abnormality. IMPRESSION: No acute cardiopulmonary process. [place] EXAMINATION: ONE XRA Y VIEW OF [...] unremarkable. There is no acute osseous abnormality. [place] Vital Signs Date Time Vital Sign Value Performing Clinician Facility 07-25-2024 14:32-0500 Body height 162.6 cm Saloni GREER Work Phone: [facility] 07-25-2024 14:32-0500 Body mass index (BMI) [Ratio] 36.9 kg/m2 Saloni GREER Work Phone: [facility] 07-25-2024 14:32-0500 Body weight 97.52 kg Saloni GREER Work Phone: [facility] 07-25-2024 14:32-0500 Diastolic blood pressure 86 mm[Hg] Saloni Hill PA Work Phone: [facility] 07-25-2024 14:32-0500 Heart rate 84 /min Saloni Piper PA Work Phone: [facility] 07-25-2024 14:32-0500 Respiratory rate 16 /min Saloni Piper PA Work Phone: [facility] 07-25-2024 14:32-0500 SaO2% (BldA) [Mass fraction] 97 % Saloni Piper PA Work Phone: [facility] 07-25-2024 14:32-0500 Systolic blood pressure 132 mm[Hg] Saloni Piper PA Work Phone: [facility] 03-01-2024 09:42-0400 Diastolic blood pressure 78 mm[Hg] OMKAR Olea McNeal Work Phone: [facility] 03-01-2024 09:42-0400 Heart rate 88 /min OMKAR Olea McNeal Work Phone: [facility] 03-01-2024 09:42-0400 Respiratory rate 20 /min OMKAR Olea McNeal Work Phone: [facility] 03-01-2024 09:42-0400 SaO2% (BldA) [Mass fraction] 97 % OMKAR Olea McNeal Work Phone: [facility] 03-01-2024 09:42-0400 Systolic blood pressure 117 mm[Hg] OMKAR Olea Liz Work Phone: [facility] 03-01-2024 09:41-0400 Body height 162.56 cm OMKAR Olea McNeal Work Phone: [facility] 03-01-2024 09:41-0400 Body weight 95.25 kg OMKAR Olea McNeal Work Phone: [facility] 02-22-2024 13:17-0400 Body height 162.56 cm [facility] 02-22-2024 13:17-0400 Body mass index (BMI) [Ratio] 36.6 kg/m2 [facility] 02-22-2024 13:17-0400 Body weight 96.78 kg [facility] 02-22-2024 13:17-0400 Diastolic blood pressure 78 mm[Hg] [facility] 02-22-2024 13:17-0400 Heart rate 71 /min [facility] 02-22-2024 13:17-0400 Respiratory rate 18 /min [facility] 02-22-2024 13:17-0400 SaO2% (BldA) [Mass fraction] 98 % [facility] 02-22-2024 13:17-0400 Systolic blood pressure 116 mm[Hg] [facility] 03-01-2020 12:15-0400 BP Diastolic 57 mm[Hg] Princess [facility] [place] 03-01-2020 12:15-0400 BP Systolic 98 mm[Hg] [facility] [place] 03-01-2020 12:15-0400 Pulse (Heart Rate) 61 /min [facility] [place] 03-01-2020 12:15-0400 Pulse Oximetry 100 % [facility] [place] 03-01-2020 12:15-0400 Respiratory Rate 14 /min [facility] [place] 03-01-2020 09:00-0400 BMI (Body Mass Index) 31.76 kg/m2 [facility] [place] 03-01-2020 09:00-0400 Body Temperature 97.9 [degF] [place] 03-01-2020 09:00-0400 Body weight 83.92 kg [facility] [place], [place] 03-01-2020 09:00-0400 Height 162.6 cm Princess [email or web address] [place] Encounters Encounter Date Encounter Type Care Provider Facility Start: 08-20-2024 End: 08-20-2024 Telephone encounter Ezequiel Conklin DO Work Phone: Neurology Comment on above: CALL - IMPORTANT AUT ONOMIC TESTING INSTRUCTIONS FOR [facility] Start: 07-31-2024 End: 07-31-2024 Orders Only Pippa Real MD Work Phone: Neurology [facility] Comment on above: Paresthesia (Primary Dx) Start: 07-30-2024 End: 07-30-2024 ambulatory PATRICIA PIPER Facility:[facility] Start: 07-30-2024 End: 07-30-2024 Patient encounter procedure SALONI PIPER [facility] Start: 07-25-2024 End: 07-25-2024 Office outpatient visit [...] Start: 07-03-2024 End: 07-03-2024 Bamboo flowsheet Louie Chavez MD Work Phone: [facility] [place] [facility] Start: 07-03-2024 End: 07-03-2024 Bamboo flowsheet Louie Chavez MD Work Phone: [facility] [place] [facility] Start: 07-03-2024 End: 07-03-2024 ambulatory LOUIE CHAVEZ Not Available Start: 04-10-2024 End: 04-10-2024 ambulatory SALONI PIPER Not Available Start: 03-14-2024 End: 03-22-2024 Pre-admission assessment SALONI PIPER [facility] Start: 03-14-2024 End: 03-14-2024 ambulatory SALONI PIPER Not Available Start: 03-01-2024 End: 03-01-2024 Patient encounter procedure OMKAR Olea Liz Work Phone: [facility] [place] Work Phone: Start: 03-01-2024 End: 03-01-2024 ambulatory OMKAR Olea Liz Work Phone: [facility] Work Phone: Start: 02-22-2024 End: 02-22-2024 ambulatory [facility] Work Phone: Start: 02-22-2024 End: 02-22-2024 Patient encounter procedure [facility] Work Phone: Start: 01-18-2024 End: 01-18-2024 ambulatory SALONI PIPER Not Available Start: 12-29-2023 End: 12-29-2023 ambulatory LOUIE CHAVEZ Not Available Start: 01-19-2023 [facility] Facility:H1 Start: 01-11-2023 End: 01-11-2023 ambulatory [facility] Facility:H1 Start: 12-29-2022 ambulatory Jimmie Crawford [facility] Start: 12-18-2022 End: 12-18-2022 [facility] Facility:H1 Start: 11-12-2022 End: 11-13-2022 [facility] Facility:H[facility] Start: 11-02-2022 End: 11-02-2022 [facility] Facility:H1 Start: 10-22-2022 End: 10-22-2022 [facility] Facility:H1 Start: 09-06-2022 End: 09-06-2022 ambulatory GLENN JIN Facility:H1 Start: 08-05-2022 End: 08-05-2022 ambulatory Mukund Baron Other [facility] Other Start: 08-05-2022 Telephone encounter Mukund Baron [facility] Start: 06-28-2022 End: 06-28-2022 ambulatory NON STAFF [facility] Work Phone: Start: 06-28-2022 End: 06-28-2022 Patient encounter procedure MD Mukund Baron Work Phone: [facility] Start: 06-18-2022 End: 06-18-2022 ambulatory Christopher Mendoza Other [facility] Other Start: 06-18-2022 Telephone encounter Christopher Law [facility] Start: 05-17-2022 End: 05-17-2022 ambulatory [facility] Facility:H1 Start: 05-05-2022 End: 05-06-2022 ambulatory MUKUND BARON Facility:H1 Start: 05-04-2022 End: 05-04-2022 ambulatory Radha Arciniega Other [facility] Other Start: 05-04-2022 Office outpatient vi sit 15 minutes Radha Arciniega [facility] Start: 04-26-2022 End: 04-26-2022 ambulatory Mukund Baron Other [facility] Other Start: 04-26-2022 Office outpatient vi sit 15 minutes Mukund Baron [facility] Start: 04-20-2022 End: 04-20-2022 Patient encounter procedure MD Mukund Baron Work Phone: [facility] [address] Start: 04-16-2022 End: 04-16-2022 ambulatory [facility] Facility:H1 Start: 04-15-2022 Encounter for preprocedural laboratory examination DR CHARLES MARRERO . [facility] Start: 04-13-2022 End: 04-14-2022 Encounter for preprocedural laboratory examination [facility] Facility:H1 Start: 04-13-2022 End: 04-14-2022 ambulatory [facility] Facility:H1 Start: 04-12-2022 End: 04-12-2022 ambulatory Mukund Baron Other [facility] Other Start: 04-12-2022 Telephone encounter Mukund Baron [facility] Start: 03-23-2022 End: 03-23-2022 ambulatory [facility] Facility:H1 Start: 03-19-2022 [facility] Facility:H1 Start: 03-08-2022 End: 03-08-2022 [facility] Facility:H1 Start: 03-01-2022 End: 03-01-2022 ambulatory Mukund Baron Other [facility] Other Start: 03-01-2022 Office outpatient ne w 45 minutes Mukund Calixa [facility] Start: 02-27-2022 End: 02-28-2022 [facility] Facility:[facility]1 Start: 02-23-2022 End: 02-23-2022 [facility] Facility:[facility] Start: 03-01-2020 End: 03-01-2020 Emergency department patient visit PRINCESS BUCHANAN [facility] Start: 03-01-2020 End: 03-01-2020 Emergency department patient visit Princess Buchanan Work Phone: [facility] Comment on above: Bronchitis (Primary Dx) [...] Start: 03-01-2020 Assay of troponin quantitative PRINCESS BUCHANAN Start: 03-01-2020 Radiologic exam ches t single view PRINCESS BUCHANAN Start: 03-01-2020 Assay of troponin quantitative Princess Buchanan Work Phone: Start: 03-01-2020 Blood count complete auto&auto difrntl wbc PRINCESS BUCHANAN Start: 03-01-2020 C-reactive protein PONCHO BUCHANAN Start: 03-01-2020 Comprehensive metabo lic panel PRINCESS BUCHANAN Start: 03-01-2020 Gonadotropin chorion ic qualitative PRINCESS BUCHANAN Start: 03-01-2020 Lactate dehydrogenase ldh PRINCESS BUCHANAN Start: 03-01-2020 Ecg routine ecg w/le ast 12 lds w/i&r PRINCESS BUCHANAN Start: 03-01-2020 Radiologic exam ches t single view Princess Buchanan Work Phone: Start: 03-01-2020 Assay of troponin quantitative Princess Buchanan Work Phone: Start: 03-01-2020 Blood count complete auto&auto difrntl wbc Princess Buchanan Work Phone: Start: 03-01-2020 C-reactive protein Poncho s Chanel Work Phone: Start: 03-01-2020 Comprehensive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
[2024-09-01 16:00] VITALS: BP 137/100; PULSE 84; TEMP 36.9; O2SAT 99; BMI 36.0
--- NOTE | 2024-09-01 16:55 | ED_ITS ---
Documented by User: PERCY Arellano 09/01/24 18:11 HPI HPI - General Adult General Chief complaint: Headache Stated complaint: Headache Time Seen by Provider: 09/01/24 16:52 Source: patient Mode of arrival: walk-in History of Present Illness HPI narrative: Patient is a 38-year-old female presents to the ER with concerns of migraine headache. Patient states she was recently diagnosed with MS 3 months ago has been undergoing additional test and has not yet started any treatments. She is currently on Trileptal which has helped with some of her symptoms. She reports headache present since , denies any fever or chills. Denies any head injury. She reports pain left frontal that goes around her head 10 out of 10 on the left and 5 out of 10 on the right. She has intermittent blurry vision in the left eye and sometimes paresthesias in the left arm which have been the hallmark of her MS diagnosis with prior MRI done in January. She sees Dr. Chavez locally for neurology. Patient denies any nausea or vomiting but has had decreased appetite she denies any vision loss. She can localize pain to the left temporal region of her head as the most uncomfortable appears uncomfortable with phonophobia and photophobia which has been present with past migraines. Patient concerned as symptoms have lasted now 3 days. They took me off all my other medications when I was diagnosed with MS. Related Data Home Medications ?Medication ?Instructions ?Recorded ?Confirmed albuterol sulfate 2.5 mg/3 mL 2.5 mg inhalation Q6H 11/07/23 11/07/23 (0.083 %) solution for nebulization budesonide-formoterol HFA 160 1 puff inhalation Q12H 11/07/23 11/07/23 mcg-4.5 mcg/actuation aerosol inhaler (Symbicort) cariprazine 1.5 mg capsule 1.5 mg PO Q24H 11/07/23 11/07/23 (Vraylar) lamotrigine 25 mg tablet 25 mg PO DAILY 11/07/23 11/07/23 sertraline 50 mg tablet 50 mg PO Q24H 11/07/23 11/07/23 Previous Rx's ?Medication ?Instructions ?Recorded ldofahcgzznwzfz-cswwuburouhrghh-PU 10 ml PO Q6H PRN cold symptoms 11/09/23 2 mg-30 mg-10 mg/5 mL oral syrup #200 mL (Bromfed DM) doxycycline hyclate 100 mg tablet 100 mg PO BID 10 days #20 tabs 11/09/23 ondansetron 4 mg disintegrating 4 mg PO Q6H PRN nausea and 11/09/23 tablet vomiting #12 tabs dicyclomine 10 mg capsule 10 mg PO QID PRN abdominal pain 06/30/24 #20 caps ondansetron 4 mg disintegrating 4 mg PO Q6H PRN nausea and 06/30/24 tablet vomiting #20 tabs Allergies Allergy/AdvReac Type Severity Reaction Status Date / Time fentanyl Allergy hallucinati Verified 11/07/23 06:00 on Opioid HPI Opioid Management Most Recent Opioid Data: Last Pain Scale 8 11/09/23 15:56 11/09/23 Review of Systems 2 ROS Constitutional Denies: fever or chills Eyes Reports: change in vision, blurry vision and light sensitivity Ears, nose, mouth, and throat Denies: throat pain or neck pain Cardiovascular Denies: chest pain, palpitations or edema Respiratory Denies: shortness of breath or cough Gastrointestinal Denies: abdominal pain, nausea, vomiting or diarrhea Genitourinary Denies: painful urination Musculoskeletal Denies: back pain or neck pain Integumentary/Breast Denies: rash Neurological Reports: headache and numbness in extremities (left upper arm); Denies: weakness in extremities, lack of coordination, dizziness, vertigo or confusion Psychiatric Denies: anxiety Allergic/Immunologic Denies: hives [facility] Medical History (Updated 09/01/24 @ 18:07 by PERCY Arellano) History of blood transfusion ?Z92.89 - Personal history of other medical treatment (ICD-10) Anemia ?D64.9 - Anemia, unspecified (ICD-10) Deep vein thrombosis ?I82.409 - Acute embolism and thrombosis of unspecified deep veins of unspecified lower extremity (ICD-10) Insomnia ?G47.00 - Insomnia, unspecified (ICD-10) Panic attacks ?F41.0 - Panic disorder [episodic paroxysmal anxiety] (ICD-10) Anxiety ?F41.9 - Anxiety disorder, unspecified (ICD-10) COVID-19 ?U07.1 - COVID-19 (ICD-10) Sleep apnea ?G47.30 - Sleep apnea, unspecified (ICD-10) Pneumonia ?J18.9 - Pneumonia, unspecified organism (ICD-10) Bronchitis ?J40 - Bronchitis, not specified as acute or chronic (ICD-10) Asthma ?J45.909 - Unspecified asthma, uncomplicated (ICD-10) Seizures ?R56.9 - Unspecified convulsions (ICD-10) Migraine ?G43.909 - Migraine, unspecified, not intractable, without status migrainosus (ICD-10) Kidney stones ?N20.0 - Calculus of kidney (ICD-10) Heartburn ?R12 - Heartburn (ICD-10) GERD (gastroesophageal reflux disease) ?K21.9 - Gastro-esophageal reflux disease without esophagitis (ICD-10) Bradycardia associated with anesthesia Abnormal uterine bleeding ?N93.9 - Abnormal uterine and vaginal bleeding, unspecified (ICD-10) Pelvic pain ?R10.2 - Pelvic and perineal pain (ICD-10) Menorrhagia ?N92.0 - Excessive and frequent menstruation with regular cycle (ICD-10) Dysmenorrhea ?N94.6 - Dysmenorrhea, unspecified (ICD-10) Delayed recovery from anesthesia Surgical History (Updated 02/09/23 @ 12:49 by Sherita Jean NP) H/O lithotripsy ?Z98.890 - Other specified postprocedural states (ICD-10) History of endometrial ablation ?Z98.890 - Other specified postprocedural states (ICD-10) History of cholecystectomy ?Z90.49 - Acquired absence of other specified parts of digestive tract (ICD- 10) History of bilateral salpingectomy ?Z90.79 - Acquired absence of other genital organ(s) (ICD-10) History of section ?Z98.891 - History of uterine scar from previous surgery (ICD-10) History of appendectomy ?Z90.49 - Acquired absence of other specified parts of digestive tract (ICD- 10) History of dilation and curettage ?Z98.890 - Other specified postprocedural states (ICD-10) Family History (Updated 02/09/23 @ 12:44 by Sherita eJan NP) Other Family history of COPD (chronic obstructive pulmonary disease) Family history of DVT Family history of breast cancer Family history of heart disease Family history of hypertension Family history of myocardial infarction Family history of ovarian cancer Family history of stroke Family history of uterine cancer Social History Within the past year, how often did you have a drink containing alcohol: monthly or less Smoking status: Current every day smoker Non-prescribed substance use: cannabis (any form) Previous occupational history: [employer] Highest level of school completed/degree received: high school graduate Little interest or pleasure in doing things: not at all Feeling down, depressed, or hopeless: not at all Gender Identity: female Exam Narrative Exam Narrative: Vital signs and nurses notes reviewed. The patient is not hypoxic. General: The patient appears well and in no apparent distress. Patient is resting comfortably on cart. Skin: Warm, dry, no pallor noted. The patient has no evidence of rash, petechiae, or purpura noted. Head: Normocephalic, atraumatic, no temporal arterial pain on palpation. no facial tenderness, pain is in the temporal region though per patient Neck: Supple, trachea mid-line, no tenderness, no lymphadenopathy. No meningeal signs. No nuchal rigidity. Eye: Pupils are equal, round and reactive to light, EOMI Ears, Nose, Mouth, and Throat: Oral mucosa is moist, TMs are clear bilaterally, no hemotympanum noted. Cardiovascular: Regular Rate and Rhythm Respiratory: Patient is in no distress, no accessory muscle use, lungs are clear to auscultation, no wheezing, rales or rhonchi Back: non-tender, no CVA tenderness Musculoskeletal: normal ROM, no tenderness, no swelling, normal strength 5/5. Normal pulses to radial 2+ bilaterally and 2+ at DP and PT bilaterally and symmetrically. GI: Normal bowel sounds, no tenderness to palpation, no masses appreciated. No rebound, guarding, or rigidity noted. 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 The patient is not ataxic. The patient has normal speech. The patient has normal coordination. . Normal motor and sensory observed. Psychiatric: Cooperative Constitutional Vital Signs, click to edit/add: Last Vital Signs Temp 98.4 F 09/01/24 16:00 Pulse 84 09/01/24 16:00 Resp 18 09/01/24 16:00 BP 127/86 09/01/24 17:38 Pulse Ox 100 09/01/24 17:40 O2 Del Method Room Air 09/01/24 16:00 Course Vital Signs Vital signs: Vital Signs Temperature 98.4 F 09/01/24 16:00 Pulse Rate 84 09/01/24 16:00 Respiratory Rate 18 09/01/24 16:00 Blood Pressure 137/100 H 09/01/24 16:00 Pulse Oximetry 99 09/01/24 16:00 Oxygen Delivery Method Room Air 09/01/24 16:00 Temperature 98.4 F 09/01/24 16:00 Pulse Rate 84 09/01/24 16:00 Respiratory Rate 18 09/01/24 16:00 Blood Pressure 127/86 09/01/24 17:38 Pulse Oximetry 100 09/01/24 17:40 Oxygen Delivery Method Room Air 09/01/24 16:00 Medical Decision Making MDM Narrative Medical decision making narrative: Patient presents with acute chronic migrainous episode on chronic migraine history she also has other symptoms from MS but has not yet started discussion of treatment options as she has been undergoing additional testing. Patient agreeable to IV placement fluids and medication here. I reviewed her previous imaging and do not feel the need for additional CT imaging of the brain at this time she has had no fever or recent illness given the eye and symptoms on the left temporal region a sed rate will be checked vasculitis appears less likely given her age Sed rate within normal limits. Reevaluated notes significant improvement in her headache symptoms with medication given I can think now. Patient requesting discharge home. I encouraged her to contact her neurologist to discuss ongoing treatment. The patient is to followup with primary care physician in next 2-3 days or to return to the emergency department should any of the signs or symptoms worsen or new symptoms develop. Patient had questions answered. The patient agrees with the following Diagnosis and Treatment plan and the patient will be discharged home. Medical Records Medical records reviewed: Yes I reviewed the patient's medical records Medical records narrative: MR HEAD WITH AND WITHOUT CONT 01/10/24 Impression: Few, scattered high signal intensity foci on T2/FLAIR in the white matter, as above, which may relate to the reported history of migraine headache. The differential less likely would include demyelinating or small vessel ischemic disease. CT head on 07/16/23- IMPRESSION: No CT evidence of an acute intracranial hemorrhage or acute calvarial fracture. Lab Data Labs: Lab Results 09/01/24 Range/Units 17:10 ESR 12 (<=20) mm/hr Discharge Plan Discharge Chief Complaint: Headache Clinical Impression: Migraine, Headache, Hx of multiple sclerosis Patient Disposition: Home, Self-Care Time of Disposition Decision: 18:06 Condition: Good Mode of Transportation: Private Vehicle Prescriptions / Home Meds: No Action albuterol sulfate 2.5 mg /3 mL (0.083 %) solution for nebulization 2.5 mg inhalation Q6H lamotrigine 25 mg tablet 25 mg PO DAILY sertraline 50 mg tablet 50 mg PO Q24H Vraylar 1.5 mg capsule 1.5 mg PO Q24H budesonide-formoterol [Symbicort] 160-4.5 mcg/actuation HFA aerosol inhaler 1 puff INHALATION Q12H duaxygawhungagl-iohymtpii-PI [Bromfed DM] 2-30-10 mg/5 mL syrup 10 ml PO Q6H PRN (Reason: cold symptoms) Qty: 200 0RF ondansetron 4 mg tablet,disintegrating 4 mg PO Q6H PRN (Reason: nausea and vomiting) Qty: 12 0RF doxycycline hyclate 100 mg tablet 100 mg PO BID 10 Days Qty: 20 0RF dicyclomine 10 mg capsule 10 mg PO QID PRN (Reason: abdominal pain) Qty: 20 0RF ondansetron 4 mg tablet,disintegrating 4 mg PO Q6H PRN (Reason: nausea and vomiting) Qty: 20 0RF Print Language: South Korean Instructions: Migraine Headache (ED) Referrals: Emmie Hill [employer] [Primary Care Provider] - As soon as possible Eduar Chavez MD [Physician] - As soon as possible Discharge Date/Time: 09/01/24 18:15 Documented by User: Albert Chowdhury MD 09/01/24 19:37 HPI HPI - General Adult General Chief complaint: Headache Stated complaint: Headache Time Seen by Provider: 09/01/24 16:52 Related Data Home Medications ?Medication ?Instructions ?Recorded ?Confirmed albuterol sulfate 2.5 mg/3 mL 2.5 mg inhalation Q6H 11/07/23 11/07/23 (0.083 %) solution for nebulization budesonide-formoterol HFA 160 1 puff inhalation Q12H 11/07/23 11/07/23 mcg-4.5 mcg/actuation aerosol inhaler (Symbicort) cariprazine 1.5 mg capsule 1.5 mg PO Q24H 11/07/23 11/07/23 (Vraylar) lamotrigine 25 mg tablet 25 mg PO DAILY 11/07/23 11/07/23 sertraline 50 mg tablet 50 mg PO Q24H 11/07/23 11/07/23 Previous Rx's ?Medication ?Instructions ?Recorded nxuygcqxujrynfu-lwntphlktgnxgij-CN 10 ml PO Q6H PRN cold symptoms 11/09/23 2 mg-30 mg-10 mg/5 mL oral syrup #200 mL (Bromfed DM) doxycycline hyclate 100 mg tablet 100 mg PO BID 10 days #20 tabs 11/09/23 ondansetron 4 mg disintegrating 4 mg PO Q6H PRN nausea and 11/09/23 tablet vomiting #12 tabs dicyclomine 10 mg capsule 10 mg PO QID PRN abdominal pain 06/30/24 #20 caps ondansetron 4 mg disintegrating 4 mg PO Q6H PRN nausea and 06/30/24 tablet vomiting #20 tabs Allergies Allergy/AdvReac Type Severity Reaction Status Date / Time fentanyl Allergy hallucinati Verified 11/07/23 06:00 on Opioid HPI Opioid Management Most Recent Opioid Data: Last Pain Scale 8 11/09/23 15:56 11/09/23 [facility] Medical History (Updated 09/01/24 @ 18:07 by PERCY Arellano) History of blood transfusion ?Z92.89 - Personal history of other medical treatment (ICD-10) Anemia ?D64.9 - Anemia, unspecified (ICD-10) Deep vein thrombosis ?I82.409 - Acute embolism and thrombosis of unspecified deep veins of unspecified lower extremity (ICD-10) Insomnia ?G47.00 - Insomnia, unspecified (ICD-10) Panic attacks ?F41.0 - Panic disorder [episodic paroxysmal anxiety] (ICD-10) Anxiety ?F41.9 - Anxiety disorder, unspecified (ICD-10) COVID-19 ?U07.1 - COVID-19 (ICD-10) Sleep apnea ?G47.30 - Sleep apnea, unspecified (ICD-10) Pneumonia ?J18.9 - Pneumonia, unspecified organism (ICD-10) Bronchitis ?J40 - Bronchitis, not specified as acute or chronic (ICD-10) Asthma ?J45.909 - Unspecified asthma, uncomplicated (ICD-10) Seizures ?R56.9 - Unspecified convulsions (ICD-10) Migraine ?G43.909 - Migraine, unspecified, not intractable, without status migrainosus (ICD-10) Kidney stones ?N20.0 - Calculus of kidney (ICD-10) Heartburn ?R12 - Heartburn (ICD-10) GERD (gastroesophageal reflux disease) ?K21.9 - Gastro-esophageal reflux disease without esophagitis (ICD-10) Bradycardia associated with anesthesia Abnormal uterine bleeding ?N93.9 - Abnormal uterine and vaginal bleeding, unspecified (ICD-10) Pelvic pain ?R10.2 - Pelvic and perineal pain (ICD-10) Menorrhagia ?N92.0 - Excessive and frequent menstruation with regular cycle (ICD-10) Dysmenorrhea ?N94.6 - Dysmenorrhea, unspecified (ICD-10) Delayed recovery from anesthesia Surgical History (Updated 02/09/23 @ 12:49 by Sherita Jean NP) H/O lithotripsy ?Z98.890 - Other specified postprocedural states (ICD-10) History of endometrial ablation ?Z98.890 - Other specified postprocedural states (ICD-10) History of cholecystectomy ?Z90.49 - Acquired absence of other specified parts of digestive tract (ICD- 10) History of bilateral salpingectomy ?Z90.79 - Acquired absence of other genital organ(s) (ICD-10) History of section ?Z98.891 - History of uterine scar from previous surgery (ICD-10) History of appendectomy ?Z90.49 - Acquired absence of other specified parts of digestive tract (ICD- 10) History of dilation and curettage ?Z98.890 - Other specified postprocedural states (ICD-10) Family History (Updated 02/09/23 @ 12:44 by Sherita Jean NP) Other Family history of COPD (chronic obstructive pulmonary disease) Family history of DVT Family history of breast cancer Family history of heart disease Family history of hypertension Family history of myocardial infarction Family history of ovarian cancer Family history of stroke Family history of uterine cancer Social History Within the past year, how often did you have a drink containing alcohol: monthly or less Smoking status: Current every day smoker Non-prescribed substance use: cannabis (any form) Previous occupational history: [employer] Highest level of school completed/degree received: high school graduate Little interest or pleasure in doing things: not at all Feeling down, depressed, or hopeless: not at all Gender Identity: female Exam Constitutional Vital Signs, click to edit/add: Last Vital Signs Temp 98.4 F 09/01/24 16:00 Pulse 84 09/01/24 16:00 Resp 18 09/01/24 16:00 BP 127/86 09/01/24 17:38 Pulse Ox 100 09/01/24 17:40 O2 Del Method Room Air 09/01/24 16:00 Course Vital Signs Vital signs: Vital Signs Temperature 98.4 F 09/01/24 16:00 Pulse Rate 84 09/01/24 16:00 Respiratory Rate 18 09/01/24 16:00 Blood Pressure 137/100 H 09/01/24 16:00 Pulse Oximetry 99 09/01/24 16:00 Oxygen Delivery Method Room Air 09/01/24 16:00 Temperature 98.4 F 09/01/24 16:00 Pulse Rate 84 09/01/24 16:00 Respiratory Rate 18 09/01/24 16:00 Blood Pressure 127/86 09/01/24 17:38 Pulse Oximetry 100 09/01/24 17:40 Oxygen Delivery Method Room Air 09/01/24 16:00 Medical Decision Making MDM Narrative Medical decision making narrative: Patient presents with acute chronic migrainous episode on chronic migraine history she also has other symptoms from MS but has not yet started discussion of treatment options as she has been undergoing additional testing. Patient agreeable to IV placement fluids and medication here. I reviewed her previous imaging and do not feel the need for additional CT imaging of the brain at this time she has had no fever or recent illness given the eye and symptoms on the left temporal region a sed rate will be checked vasculitis appears less likely given her age Sed rate within normal limits. Reevaluated notes significant improvement in her headache symptoms with medication given I can think now. Patient requesting discharge home. I encouraged her to contact her neurologist to discuss ongoing treatment. The patient is to followup with primary care physician in next 2-3 days or to return to the emergency department should any of the signs or symptoms worsen or new symptoms develop. Patient had questions answered. The patient agrees with the following Diagnosis and Treatment plan and the patient will be discharged home. I, Dr Chowdhury, have reviewed the above progress note and course of action in the ER; agree with the above. I have gone over history and physical, and discussed disposition and treatment plan with the patient. Lab Data Labs: Lab Results 09/01/24 Range/Units 17:10 ESR 12 (<=20) mm/hr Discharge Plan Discharge Chief Complaint: Headache Clinical Impression: Migraine, Headache, Hx of multiple sclerosis Patient Disposition: Home, Self-Care Time of Disposition Decision: 18:06 Condition: Good Mode of Transportation: Private Vehicle Prescriptions / Home Meds: No Action albuterol sulfate 2.5 mg /3 mL (0.083 %) solution for nebulization 2.5 mg inhalation Q6H lamotrigine 25 mg tablet 25 mg PO DAILY sertraline 50 mg tablet 50 mg PO Q24H Vraylar 1.5 mg capsule 1.5 mg PO Q24H budesonide-formoterol [Symbicort] 160-4.5 mcg/actuation HFA aerosol inhaler 1 puff INHALATION Q12H fknifcrydjqniyk-arlkbltyt-AU [Bromfed DM] 2-30-10 mg/5 mL syrup 10 ml PO Q6H PRN (Reason: cold symptoms) Qty: 200 0RF ondansetron 4 mg tablet,disintegrating 4 mg PO Q6H PRN (Reason: nausea and vomiting) Qty: 12 0RF doxycycline hyclate 100 mg tablet 100 mg PO BID 10 Days Qty: 20 0RF dicyclomine 10 mg capsule 10 mg PO QID PRN (Reason: abdominal pain) Qty: 20 0RF ondansetron 4 mg tablet,disintegrating 4 mg PO Q6H PRN (Reason: nausea and vomiting) Qty: 20 0RF Print Language: South Korean Instructions: Migraine Headache (ED) Referrals: Emmie Hill NP [Primary Care Provider] - As soon as possible Eduar Chavez MD [Physician] - As soon as possible Discharge Date/Time: 09/01/24 18:15
[2024-09-01] MEDS: 0.9 % SODIUM CHLORIDE 1,000 ML 999 ML IV (17:30)
[2024-09-01] MEDS: KETOROLAC TROMETHAMINE 30 MG/ML VIAL IVP (17:30)
[2024-09-01] MEDS: METHYLPREDNISOLONE SOD SUCC PF 125 MG/2 ML VIAL IVP (17:30)
[2024-09-01] MEDS: METOCLOPRAMIDE HCL 10 MG/2 ML VIAL IVP (17:31)
[2024-09-01] MEDS: DIPHENHYDRAMINE HCL 50 MG/ML VIAL IV (17:32)
[2024-09-01 17:34] LABS: Erythrocyte Sedimentation Rate 12 mm/hr (<=20)
[2024-09-01 17:38] VITALS: BP 127/86; O2SAT 100
[2024-09-01 17:40] VITALS: O2SAT 100
== END 2024-09-01 18:15 | disposition home or self-care (01) ==
PROVIDERS: Personal Emergency Response Attendant; Emergency Provider Emergency Medicine; PCP Nurse Practitioner
DX: G43.909 Migraine, unspecified, not intractable, without status migrainosus (principal); G35 Multiple sclerosis; Z90.49 Acquired absence of other specified parts of digestive tract; Z90.79 Acquired absence of other genital organ(s); F17.200 Nicotine dependence, unspecified, uncomplicated
CPT/HCPCS: 36415; 85652; 96374; 96375; 99284; J1200; J1885; J2765; J2919

== ENCOUNTER 2024-10-30 12:27 | Emergency (ER) | payer OTHER, SELFPAY ==
[2024-10-30 12:39] VITALS: BP 137/70; PULSE 79; TEMP 36.9; O2SAT 99; BMI 37.8
--- NOTE | 2024-10-30 12:46 | ECG_ITS ---
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
[2024-10-30 12:53] LABS: Basophils Absolute Auto 0.1 10^3/uL (0.0-0.1); Basophils Percent Auto 0.6 % (0.2-2.0); Eosinophils Absolute Auto 0.2 10^3/uL (0.0-0.7); Eosinophils Percent Auto 1.8 % (0.9-7.0); Hemoglobin 14.4 g/dL (12.0-16.0); Immature Granulocytes Abs Auto 0.01 10^3/uL (0.00-0.03); Immature Granulocytes Pct Auto 0.1 % (0.0-0.5); Lymphocytes Absolute Auto 2.7 10^3/uL (1.2-3.8); Lymphocytes Percent Auto 26.5 % (20.5-60.0); Mean Corpuscular HGB Conc 33.5 g/dL (29.9-35.2); Mean Corpuscular Volume 89.6 fL (81.0-99.0); Mean Platelet Volume 9.1 fL (9.5-13.5); Monocytes Absolute Auto 0.6 10^3/uL (0.3-0.8); Monocytes Percent Auto 5.5 % (1.7-12.0); Neutrophils Absolute Auto 6.5 10^3/uL (1.4-6.5); Neutrophils Percent Auto 65.5 % (43.0-75.0); Platelet Count 368 10^3/uL (150-450); Red Cell Distribution Width 12.4 % (11.0-15.0)
[2024-10-30 13:05] LABS: HCG Qualitative NEGATIVE (NEGATIVE); Internal Control Within Normal Limits
[2024-10-30 13:12] LABS: Alanine Aminotransferase 32 U/L (14-59); Albumin Level 3.6 g/dL (3.4-5.0); Alkaline Phosphatase 89 U/L (46-116); Anion Gap 12.8; Aspartate Amino Transferase 18 U/L (15-37); BUN Creatinine Ratio 13.3; Bilirubin Total 0.3 mg/dL (0.2-1.0); Calcium 9.1 mg/dL (8.5-10.1); Carbon Dioxide 22.9 mmol/L (21.0-32.0); Chloride 105 mmol/L (98-107); Estimated GFR (African America >60 (>=60 mL/min/1.73m^2); Estimated GFR (Non-African Ame >60 (>=60 mL/min/1.73m^2); Globulin 3.6 g/dL; Glucose 95 mg/dL (74-106); Potassium 3.7 mmol/L (3.5-5.1); Sodium 137 mmol/L (136-145); Total Protein 7.2 g/dL (6.4-8.2); Troponin I High Sensitivity <4.0 pg/mL (4.0-51.3)
[2024-10-30 13:25] LABS: INR 0.97; Prothrombin Time 10.3 sec (9.0-11.6)
[2024-10-30 13:42] LABS: D Dimer 0.48 mg/L FEU (<=0.59)
[2024-10-30] MEDS: KETOROLAC TROMETHAMINE 30 MG/ML VIAL 15 MG IVP (13:42)
[2024-10-30] MEDS: FAMOTIDINE/PF 20 MG/2 ML VIAL IV (13:43)
--- NOTE | 2024-10-30 15:03 | ED_ITS ---
HPI - Chest Pain General Chief Complaint: Chest Pain Stated Complaint: CHEST PAIN SOB SHARP PAIN Time Seen by Provider: 10/30/24 12:45 Source: patient Mode of arrival: walk-in Limitations: no limitations History of Present Illness HPI narrative: 39 years old female with no significant known past medical history coming to the ER with a chest pain in both side of the chest that started while she was at work, patient that it just happened whenever she take a deep breath the patient was emotional when she came to visit the pain she denies any nausea vomiting or any other concerns No history of recent immobilization no history of any other concern Related Data Home Medications ?Medication ?Instructions ?Recorded ?Confirmed oxcarbazepine 300 mg tablet mg 10/30/24 Previous Rx's ?Medication ?Instructions ?Recorded diclofenac sodium 50 mg 50 mg PO Q12H PRN pain #14 tabs 10/30/24 tablet,delayed release Allergies Allergy/AdvReac Type Severity Reaction Status Date / Time fentanyl Allergy hallucinati Verified 10/30/24 12:42 on Review of Systems ROS Status of ROS 10 or more systems reviewed and unremark able except as noted in history and below [facility] Medical History (Updated 10/30/24 @ 15:07 by Sophia Husain MD) History of blood transfusion ?Z92.89 - Personal history of other medical treatment (ICD-10) Anemia ?D64.9 - Anemia, unspecified (ICD-10) Deep vein thrombosis ?I82.409 - Acute embolism and thrombosis of unspecified deep veins of unspecified lower extremity (ICD-10) Insomnia ?G47.00 - Insomnia, unspecified (ICD-10) Panic attacks ?F41.0 - Panic disorder [episodic paroxysmal anxiety] (ICD-10) Anxiety ?F41.9 - Anxiety disorder, unspecified (ICD-10) COVID-19 ?U07.1 - COVID-19 (ICD-10) Sleep apnea ?G47.30 - Sleep apnea, unspecified (ICD-10) Pneumonia ?J18.9 - Pneumonia, unspecified organism (ICD-10) Bronchitis ?J40 - Bronchitis, not specified as acute or chronic (ICD-10) Asthma ?J45.909 - Unspecified asthma, uncomplicated (ICD-10) Seizures ?R56.9 - Unspecified convulsions (ICD-10) Migraine ?G43.909 - Migraine, unspecified, not intractable, without status migrainosus (ICD-10) Kidney stones ?N20.0 - Calculus of kidney (ICD-10) Heartburn ?R12 - Heartburn (ICD-10) GERD (gastroesophageal reflux disease) ?K21.9 - Gastro-esophageal reflux disease without esophagitis (ICD-10) Bradycardia associated with anesthesia Abnormal uterine bleeding ?N93.9 - Abnormal uterine and vaginal bleeding, unspecified (ICD-10) Pelvic pain ?R10.2 - Pelvic and perineal pain (ICD-10) Menorrhagia ?N92.0 - Excessive and frequent menstruation with regular cycle (ICD-10) Dysmenorrhea ?N94.6 - Dysmenorrhea, unspecified (ICD-10) Delayed recovery from anesthesia Surgical History (Updated 02/09/23 @ 12:49 by Sherita Jean NP) H/O lithotripsy ?Z98.890 - Other specified postprocedural states (ICD-10) History of endometrial ablation ?Z98.890 - Other specified postprocedural states (ICD-10) History of cholecystectomy ?Z90.49 - Acquired absence of other specified parts of digestive tract (ICD- 10) History of bilateral salpingectomy ?Z90.79 - Acquired absence of other genital organ(s) (ICD-10) History of section ?Z98.891 - History of uterine scar from previous surgery (ICD-10) History of appendectomy ?Z90.49 - Acquired absence of other specified parts of digestive tract (ICD- 10) History of dilation and curettage ?Z98.890 - Other specified postprocedural states (ICD-10) Family History (Updated 02/09/23 @ 12:44 by Sherita Jean NP) Other Family history of COPD (chronic obstructive pulmonary disease) Family history of DVT Family history of breast cancer Family history of heart disease Family history of hypertension Family history of myocardial infarction Family history of ovarian cancer Family history of stroke Family history of uterine cancer Social History Within the past year, how often did you have a drink containing alcohol: monthly or less Smoking status: Current every day smoker Non-prescribed substance use: cannabis (any form) Previous occupational history: [employer] Highest level of school completed/degree received: high school graduate Little interest or pleasure in doing things: not at all Feeling down, depressed, or hopeless: not at all Gender Identity: female Exam Narrative Exam Narrative: Nurses notes and vital signs reviewed and patient is not hypoxic. General: Well-appearing and in no apparent distress. Skin: Warm, dry, no pallor noted. No rash. Head: Normocephalic, atraumatic. Neck: Supple, non-tender. Eye: Pupils are equal, round and EOMI. No scleral icterus. Ears, Nose, Mouth, and Throat: TM are clear, no nasal mucosal hypertrophy. Oral mucosa is moist, no posterior oropharynx erythema, uvula is mid-line Cardiovascular: Regular Rate and Rhythm without murmur, gallop or rub. Respiratory: No accessory muscle use or respiratory distress. Lungs are clear to auscultation, no wheezing, rales or rhonchi Chest Wall: no tenderness Back: No midline thoracic or lumbar vertebral tenderness. No CVA tenderness Musculoskeletal: normal ROM, no calf or popliteal tenderness, no lower extremit y edema/swelling GI: Abdomen is soft, non-distended. Normal bowel sounds. No masses appreciated. No tenderness to palpation. No rebound, guarding, or rigidity noted. Constitutional Vital Signs, click to edit/add: Last Vital Signs Temp 98.4 F 10/30/24 12:39 Pulse 79 10/30/24 12:39 Resp 10/30/24 12:39 BP 137/70 10/30/24 12:39 Pulse Ox 99 10/30/24 12:39 O2 Del Method Room Air 10/30/24 12:39 Course Vital Signs Vital signs: Vital Signs Temperature 98.4 F 10/30/24 12:39 Pulse Rate 79 10/30/24 12:39 Respiratory Rate 20 10/30/24 12:39 Blood Pressure 137/70 10/30/24 12:39 Pulse Oximetry 99 10/30/24 12:39 Oxygen Delivery Method Room Air 10/30/24 12:39 Temperature 98.4 F 10/30/24 12:39 Pulse Rate 79 10/30/24 12:39 Respiratory Rate 20 10/30/24 12:39 Blood Pressure 137/70 10/30/24 12:39 Pulse Oximetry 99 10/30/24 12:39 Oxygen Delivery Method Room Air 10/30/24 12:39 MDM - Chest Pain MDM Narrative Medical decision making narrative: The patient EKG in the ER showing sinus rhythm with a heart rate of [address] elevation or depression CBC showed no acute pathology the chemistry was within normal Chest x-ray showed no acute pathology D-dimer is not elevated and the troponin was repeated twice shows no elevation as well Patient was treated in the ER with Toradol and Pepcid after which she was feeling much better Right now the patient pain is mostly pleuritic she was provided with Voltaren to go home with for supportive care The patient is to follow up with primary care physician in next 2-3 days or to return to the emergency department should any of the signs or symptoms worsen or new symptoms develop. The patient agrees with the following Diagnosis and Treatment plan and the patient will be discharged home. Lab Data Labs: Lab Results 10/30/24 10/30/24 10/30/24 Range/Units 12:42 13:06 14:19 WBC 10.0 (4.0-11.0) 10^3/uL RBC 4.80 (4.20-5.40) 10^6/uL Hgb 14.4 (12.0-16.0) g/dL Hct 43.0 (36.0-48.0) % MCV 89.6 (81.0-99.0) fL MCH 30.0 (26.7-34.0) pg MCHC 33.5 (29.9-35.2) g/dL RDW 12.4 (11.0-15.0) % Plt Count 368 (150-450) 10^3/uL MPV 9.1 L (9.5-13.5) fL Neut % (Auto) 65.5 (43.0-75.0) % Lymph % (Auto) 26.5 (20.5-60.0) % [place] % (Auto) 5.5 (1.7-12.0) % Eos % (Auto) 1.8 (0.9-7.0) % Baso % (Auto) 0.6 (0.2-2.0) % Neut # (Auto) 6.5 (1.4-6.5) 10^3/uL Lymph # (Auto) 2.7 (1.2-3.8) 10^3/uL [place] # (Auto) 0.6 (0.3-0.8) 10^3/uL Eos # (Auto) 0.2 (0.0-0.7) 10^3/uL Baso # (Auto) 0.1 (0.0-0.1) 10^3/uL Abs Immat Gran (auto) 0.01 (0.00-0.03) 10^3/uL Imm/Tot Granulo (auto) 0.1 (0.0-0.5) % PT 10.3 (9.0-11.6) sec INR 0.97 D-Dimer 0.48 (<=0.59) mg/L FEU Sodium 137 (136-145) mmol/L Potassium 3.7 (3.5-5.1) mmol/L Chloride 105 (98-107) mmol/L Carbon Dioxide 22.9 (21.0-32.0) mmol/L Anion Gap 12.8 BUN 10.0 (7.0-18.0) mg/dL Creatinine 0.75 (0.55-1.02) mg/dL Est GFR ( Amer) >60 (>=60 mL/min/1.73m^2) Est GFR (Non-Af Amer) >60 (>=60 mL/min/1.73m^2) BUN/Creatinine Ratio 13.3 Glucose 95 (74-106) mg/dL Calcium 9.1 (8.5-10.1) mg/dL Total Bilirubin 0.3 (0.2-1.0) mg/dL AST 18 (15-37) U/L ALT 32 (14-59) U/L Alkaline Phosphatase 89 (46-116) U/L Troponin I High Sens <4.0 L 4.0 (4.0-51.3) pg/mL Total Protein 7.2 (6.4-8.2) g/dL Albumin 3.6 (3.4-5.0) g/dL Globulin 3.6 g/dL Albumin/Globulin Ratio 1.0 Serum HCG, Qual Negative (NEGATIVE) Discharge Plan Discharge Chief Complaint: Chest Pain Clinical Impression: Chest pain, pleuritic Patient Disposition: Home, Self-Care Time of Disposition Decision: 15:06 Condition: Good Prescriptions / Home Meds: New diclofenac sodium 50 mg tablet,delayed release (DR/EC) 50 mg PO Q12H PRN (Reason: pain) Qty: 14 0RF No Action oxcarbazepine 300 mg tablet Print Language: Greenlandic Instructions: Chest Pain (DC) Referrals: Emmie Hill ENGINEERING VICE PRESIDENT [Primary Care Provider] - 1 week
== END 2024-10-30 15:26 | disposition home or self-care (01) ==
PROVIDERS: Emergency Provider Emergency Medicine; PCP Nurse Practitioner
DX: R07.89 Other chest pain (principal); R07.81 Pleurodynia; F17.200 Nicotine dependence, unspecified, uncomplicated
CPT/HCPCS: 36415; 71045; 80053; 84484; 84703; 85025; 85378; 85610; 93005; 96374; 96375; 99285; J1885; J3490

== ENCOUNTER 2025-04-10 17:06 | Emergency (ER) | payer OTHER, SELFPAY ==
--- OUTSIDE RECORDS SUMMARY | 2024-05-15 04:44 | XMS_ITS ---
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 Name Role Phone Chon Arcos Primary Care Provider Unavailab Thelma Tuttle [phone] REASON FOR VISIT labs needed Encounters Encounter Location Date Provider Diagnosis [facility] [address] [place] [address] 05/15/2024 Thelma Interiano Wellness examination Z00.00 Assessments Encounter Date Diagnosis (ICD Code) Assessment Notes Treatment Notes Treatment Clinical Notes Section Notes 05/15/2024 Wellness examination (ICD-10 - Z00.00) Plan Of Treatment Pending Test Test Name Order Date HEMOGLOBIN A1C (GLYCO) 05/15/2024 INSULIN, TOTAL 05/15/2024 Progress Notes * Ash BECKHAMOB:[birth year] (38 yo F)Acc No.[id number]:05/15/2024 Patient: Lilly EUGENE :1985 A ge:38 Y S ex:Female Address:[address] [place], [address] Subjective: * Chief Complaints: * L abs needed * Medical History: * Surgical History: * Hospitalization/Major Diagno stic Procedure: * Medications: Objective: * Vitals: * Physical Examination: Assessment: * Assessment: 1. [facility] examination - Z00.00 (Primary) Plan: * Treatment: * Procedure Codes: * true * Date: Generated for Samy massey/Diamond/Berhane on: 0 04/10/2025 05:29 PM EDT
--- OUTSIDE RECORDS SUMMARY | 2024-08-20 05:40 | XMS_ITS ---
Author Organization [facility] in [place] Address [address] [place] [address] Care Team Providers Care Substance Abuse Therapist Name Role Phone Chon Arcos Primary Care Provider Unavailab Vinay Myeer [facility] [phone] REASON FOR VISIT Follow Up - LMTCB Encounters Encounter Location Date Provider Diagnosis [facility] [address] [place] [address] 08/20/2024 Vinay Ryan Plan Of Treatment No Information Progress Notes * Lilly BECKHAM ADOB:07/1986 (38 yo F)Acc No.[id number]:08/20/2024 Patient: Konrad JASMINEYarelis MUNOZte Konrad :1985 A ge:38 Y S ex:Female Address:[facility] [place] [address] * true * Date: Generated for Samy massey/Diamond/eTransmitting on: 0 04/10/2025 05:29 PM EDT
[2025-04-10 17:11] VITALS: BP 118/75; PULSE 71; TEMP 36.6; O2SAT 97; BMI 37.8
[2025-04-10 17:15] VITALS: O2SAT 95
[2025-04-10 17:16] VITALS: BP 118/75; O2SAT 96
--- OUTSIDE RECORDS SUMMARY | 2025-04-10 17:29 | XMS_ITS | Patient Health Record ---
Author Organization [facility] in [place] Address [address] [place] [address] Care Team Providers Care Residential Construction Instructor Name Role Phone Chon Arcos Primary Care Provider Unavailab Vinay Meyer Unavailable [phone] Thelma Interiano Unavailable [phone] Allergies Allergen (clinical drug ingredient) Drug/Non Drug Allergy documented on EMR Reaction Allergy Type Onset Date Status Nicotine Patches (uncoded) Rash Allergy Active fentanyl Fentanyl Hallucinations Drug Allergy Ac tive risperidone risperiDONE Lactating Drug Allergy Act pranay Reason For Referral No Information Medications Medication SIG (Take, Route, Frequency, Duration) Notes Start Date End Date Status traZODone HCl 100 MG 1 tablet at bedtime Orally Once a day for 30 days Active Rizatriptan Benzoate 10 MG Oral for 30 Days Active hydrOXYzine HCl 50 MG TAKE 1 TABLET BY MOUTH TWICE A DAY FOR 30 DAYS for 90 days Active OXcarbazepine 300 MG Oral for 90 Days Active metFORMIN HCl 500 MG 1 tablet with a meal Orally Once a day Not-Taking Pantoprazole Sodium 20 MG 1 tablet Orally Once a day for 30 days 05/14/2024 Active Vraylar 1.5 MG 1 capsule Orally Once a day for 30 days Active Trintellix 5 MG 1 tablet Orally Once a day for 30 days Patient was taking 3mg Active Social History Tobacco Use: Social History Observation Description Date Details (start date - stop date) Current Smoker NA - NA Tobacco Use/Smoking Question Answer Notes Patient is a current smoker How often do you smoke cigarettes? every day Additional Findings: Tobacco User Light cigarett e smoker ((1-9 cigs/day) Tobacco Control (Standard) Question Answer Notes Tobacco use: Current smoker How often do you smoke cigarettes? Every day How many cigarettes a day do you smoke? 6-10 How soon after you wake up d o you smoke your first cigarette? Within 5 minutes Are you interested in quitting? Thinking about q uitting AUDIT-C (Standard) Question Answer Notes Did you have a drink containing alcohol in the p ast year? No Points 0 Interpretation Negative Problems Problem Type SNOMED Code ICD Code Onset Dates Problem Status W/U Status Risk Notes Problem 626827381 Obesity, unspecified (E66.9) Active confirmed Problem Borderline personality disorder (41320404) Borderline personality disorder (F60.3) Active confirmed Problem Uncomplicated moderate persistent asthma (590265015) Moderate persistent asthma, uncomplicated (J45.40) Active confirmed Problem Gastroesophageal reflux disease (383504751) GERD (gastroesophageal reflux disease) (K21.9) Active confirmed Problem Anxiety (68610138) Anxiety (F41.9) Active confi rmed Problem Depression (831650262) Depression (F32.9) Active confirmed Problem Attention deficit disorder (52981958) ADD (attention deficit disorder) (F90.0) Active confirmed Problem Cannabis abuse (31992466) Marijuana abuse (F12.10) Active confirmed Problem Mental disorder caused by drug (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) Cigarette nicotine dependence with nicotine-induced disorder (F17.219) Active confirmed Problem Hilar lymphadenopathy (52667276) Hilar lymphadenopathy (R59.0) Active confirmed Problem Lung field abnormal (934957518) Ground glass opacity present on imaging of lung (R91.8) Active confirmed Vital Signs Blood pressure diastolic 82 mm Hg 05/14/2024 Height 64 in 05/14/2024 Blood pressure systolic 122 mm Hg 05/14/2024 Weight 215 lbs 05/14/2024 BMI 36.9 kg/m2 05/14/2024 Encounters Encounter Location Date Provider Diagnosis [facility] [place] [address] [place] [address] 05/14/2024 Thelma Interiano [facility] [place] [address] [place] [address] 05/15/2024 Thelma Interiano Wellness examination Z00.00 [facility] [place] [address] [place] [address] 06/11/2024 Thelma Interiano [facility] [place] [address] [place] [address] 08/20/2024 Vinay Ryan [facility] [place] [address] [place] [address] 05/14/2024 Thelma Interiano Borderline personality disorder F60.3 ; Prediabetes R73.03 and GERD (gastroesophageal reflux disease) K21.9 Assessments Encounter Date Diagnosis (ICD Code) Assessment Notes Treatment Notes Treatment Clinical Notes Section Notes 05/14/2024 Borderline personality disorder (ICD-10 - F60.3) looking for new psych provider needs refills until than fu 3 months, prn 05/14/2024 Prediabetes (ICD-10 - R73.03) not tolerating Metformin, loose stools check A1c 05/15/2024 Wellness examination (ICD-10 - Z00.00) 05/14/2024 GERD (gastroesophagea l reflux disease) (ICD-10 - K21.9) work on diet wt loss Plan Of Treatment Pending Test Test Name Order Date HEMOGLOBIN A1C (GLYCO) 05/15/2024 INSULIN, TOTAL 05/15/2024 Insurance Providers Payer Name Payer Address Payer Phone Subscriber Number Group Number Insured Name Patient Relationship to Insured Coverage Start Date Coverage End Date [employer] [place] [employer] [address] [place] [address] [id number] Lilly Beckham Self - patient is the insured 4 Medical (General) History Medical History History ICD Code Moderate persistent asthma, uncomplicate d J45.40 Cigarette nicotine dependence with nicot ine-induced disorder F17.219 Marijuana abuse F12.10 Hilar lymphadenopathy R59.0 Ground glass opacity present on imaging of lung R91.8 Bipolar disorder F31.9 Borderline personality disorder F60.3 Post traumatic stress disorder (PTSD) F4 3.10 Primary central sleep apnea of P 28.31 Anxiety Depression ADD (attention deficit disorder) Borderline personality disorder Surgical History Surgery Date(Month/Year) Hernia Repair X 2 Appendectomy Gallbladder Removal Hysterectomy- Partial appendectomy tubal ligation section cholecystectomy
--- OUTSIDE RECORDS SUMMARY | 2025-04-10 17:29 | XMS_ITS | Encounter Summary ---
Author Organization [facility] Address [address] [place] [address] Care Team Providers Care High School Coordinator Name Role Phone Charles Marrero DO Unavailable Saloni Rubin Unavailable Eduar Chavez MD Unavailable [phone] Sherita Rodriguez Unavailable Santo Ryan MD Primary Care Provider +- Saloni Rubni Unavailable Encounter Details Date Type Department Care Team (Late st Contact Info) Description 02/22/2023 Abstract [facility] [address] [place] [address] Charles Marrero DO [address] [place] [address] Social History Tobacco Use Types Packs/Day Years Used Date Smoking Tobacco: Never Assessed Comments Unknown Sex and Gender Information Value Date Recorded Sex Assigned at Not on file Legal Sex Female 11:47 PM EDT Gender Identity Not on file Sexual Orientation Not on file documented as of this encounter Plan of Treatment Not on file documented as of this encounter Visit Diagnoses Not on filedocumented in this encounter Care Teams High School Coordinator Relationship Specialty Start Date End Date Charles Marrero DO [address] [place] [address] PCP - [facility] 03/05/24 Santo Ryan MD [address] [place] [id number] PCP - General Family Medicine 12/17/24 Saloni Rubin PA PCP - [facility] 12/04/24 Saloni Rubin PA [address] [place] [address] Physician Marine Equipment Sales Engineer Neurology 07/25/24 Eduar Chavez MD [address] [place], [place] [address] [place] [place] [address] Referring Physician Neurology 07/25/24 12/16/24 Sherita Rodriguez PA [address] [facility] [place] [id number] Physician Marine Equipment Sales Engineer Neurology 12/17/24 documented as of this encounter
--- OUTSIDE RECORDS SUMMARY | 2025-04-10 17:29 | XMS_ITS | Clinical Summary ---
Author Organization [facility] tem Address [id number] [address] [place] [address] Care Team Providers Care Measurer Machine Name Role Phone Services, Count Includes [facility] Primary Care Provider Allergies No known active allergies Medications topiramate (TOPAMAX) 100 mg tablet Take 150 mg by mouth 2 (two) times a day. Active risperiDONE (RisperDAL) 2 mg tablet Take 2 mg by mouth daily. Active traZODone (DESYREL) 100 mg tablet Take 100 mg by mouth nightly. Active Social History Tobacco Use Types Packs/Day Years Used Date Smoking Tobacco: Every Day Smokeless Tobacco: Never Childcare Answer Date Recorded Childcare Unknown 01/09/2020 Employment Answer Date Recorded Employment Unknown 01/09/2020 Purpose - Life Answer Date Recorded Purpose and direction in life Unknown Comments Unknown Sex and Gender Information Value Date Recorded Sex Assigned at Not on file Legal Sex Female 9:10 AM EDT Gender Identity Not on file Sexual Orientation Not on file Last Filed Vital Signs Vital Sign Reading Time Taken Comments Blood Pressure 136/88 01/09/2020 9:17 AM EDT Pulse 86 01/09/2020 9:17 AM EDT Temperature 36.7 C (98.1 F) 01/09/2020 9:17 AM EDT Respiratory Rate 18 01/09/2020 9:17 AM EDT Oxygen Saturation 100% 01/09/2020 9:17 AM EDT Inhaled Oxygen Concentration - - Weight 102.1 kg (225 lb) 02/25/2021 3:07 PM EDT Height 162.6 cm (5' 4 ) 02/25/2021 3:07 PM EDT Body Mass Index 38.62 02/25/2021 3:07 PM EDT Plan of Treatment Health Maintenance Due Date Last Done Comments Depression Screening 1996 Tobacco Screening 1996 Adult BMI Screening 2002 DTaP,Tdap and Td Vaccines (1 - Tdap) 2003 Pap Smear 2005 Influenza Vaccine 05/06/2025 Medical Devices Not on file Insurance [employer] Care Teams Measurer Machine Relationship Specialty Start Date End Date Services, Count Includes [facility] [address] [place] PCP - General Family Medicine 07/17/20
--- OUTSIDE RECORDS SUMMARY | 2025-04-10 17:29 | XMS_ITS | Encounter Summary ---
Author Organization [facility] Address [address] [place] [address] Care Team Providers Care Coater Associate Name Role Phone Charles Marrero DO Unavailable Saloni Rubin Unavailable Eduar Chavez MD Unavailable [phone] Sherita Rodriguez Unavailable Santo Ryan MD Primary Care Provider +- Saloin Rubin Unavailable Encounter Details Date Type Department Care Team (Late st Contact Info) Description 02/22/2023 Abstract [facility] [address] [place] [address] Charles Marrero DO [address] [place] [address] Social History Tobacco Use Types Packs/Day Years [...] on filedocumented in this encounter Care Teams Coater Associate Relationship Specialty Start Date End Date Charles Marrero DO [address] [place] [address] PCP - [facility] 03/05/24 Santo Ryan MD [address] [place] [phone] PCP - General Family Medicine 12/17/24 Saloni Rubin PA PCP - [facility] 12/04/24 Saloni Rubin PA [address] [place] [address] Physician Technical Operator Neurology 07/25/24 Eduar Chavez MD [address] [place], [place] [address] [place] [address] Referring Physician Neurology 07/25/24 12/16/24 Sherita Rodriguez PA [address] [facility] [place] [phone] Physician Technical Operator Neurology 12/17/24 documented as of this encounter
--- OUTSIDE RECORDS SUMMARY | 2025-04-10 17:29 | XMS_ITS | Encounter Summary ---
Author Organization [facility] Address [address] [place] [address] Care Team Providers Care Harness Brusher Name Role Phone Charles Marrero DO Unavailable Saloni Rubin Unavailable Eudar Chavez MD Unavailable [phone] Sherita Rodriguez Unavailable Santo Ryan MD Primary Care Provider +- Saloni Rubin Unavailable Encounter Details Date Type Department Care Team (Late st Contact Info) Description 02/24/2023 Abstract [facility] [address] [place] [address] Charles Marrero DO [address] [place] [address] Social History Tobacco Use Types Packs/Day Years [...] on filedocumented in this encounter Care Teams Harness Brusher Relationship Specialty Start Date End Date Charles Marrero DO [address] [place] [address] PCP - [facility] 03/05/24 Santo Ryan MD [address] [place] [phone] PCP - General Family Medicine 12/17/24 Saloni Rubin PA PCP - [facility] 12/04/24 Saloni Rubin PA [address] [place] [address] Physician Housekeeping Coordinator Neurology 07/25/24 Eduar Chavez MD [address] [place], [place] [address] [place] [address] Referring Physician Neurology 07/25/24 12/16/24 Sherita Rodriguez PA [address] [facility] [place] [id number] Physician Housekeeping Coordinator Neurology 12/17/24 documented as of this encounter
--- OUTSIDE RECORDS SUMMARY | 2025-04-10 17:29 | XMS_ITS | Encounter Summary ---
Author Organization [facility] Address [address] [place] [address] Care Team Providers Care Technical Sales Director Name Role Phone ElidaCharles pascual Unavailable Saloni Rubin Unavailable Eduar Smart MD Unavailable [phone] Sherita Rodriguez Unavailable Santo Ryan MD Primary Care Provider + Saloni Rubin Unavailable Encounter Details Date Type Department Care Team (Late st Contact Info) Description 01/10/2024 Clinisync Result Encounter [facility] External Department Unsolicited Eduar Smart MD [address] [place] [id number] Social History Tobacco Use Types Packs/Day Years Used Date Smoking Tobacco: Every Day Cigarettes 0.5 27.6 Started: 09/05/1997 Smokeless Tobacco: Never Comments:Smokes 5 mins after waking up Alcohol Use Standard Drinks/Week Comments Never 0 (1 standard drink = 0.6 oz pur e alcohol) caffeine: daily Comments Unknown Sex and Gender Information Value Date Recorded Sex Assigned at Not on file Legal Sex Female 11:47 PM EDT Gender Identity Not on file Sexual Orientation Not on file documented as of this encounter Plan of Treatment Not on file documented as of this encounter Procedures Procedure Name Priority Date/Time Associated Diagnosis Comments MRI HEAD/BRAIN WO/W CONTR 01/10/2024 1:12 PM EDT documented in this encounter Results * MRI HEAD/BRAIN WO/W CONTR (01/10/2024 1:12 PM EDT) Anatomical Region Laterality Modality Radiographic Lisa ging 01/10/2024 1:12 PM EDT Narrative 01/10/2024 1:15 PM EDT [address] [address] Magnetic Resonance Report Signed Patient: LILLY BECKHMA MR#: [id number] : 1985 Acct:[id number] Age/Sex: 38 / F ADM Date: 01/10/24 Loc: MRI Attending Dr: Eduar Smart M.D. Ordering Physician: EDUAR SMART Date of Service: 01/10/24 Procedure(s): MR head/brain wo/w con Accession Number(s): [id number] cc: EDUAR SMART ; Emmie Hill STREETCAR REPAIRER [place] [id number] Patient Name: LILLY BECKHAM MRN: [id number] date: 1985 Sex: F Assigned Patient Location: MRI Current Patient Location: MRI Accession/Order Number: [id number] Exam Date: 01/10/2024 11:01 Report Date: 01/10/2024 13:12 At the request of: EDUAR SMART Procedure: MR head/brain wo/w con EXAM: MR head/brain wo/w con HISTORY: Migraine With Aura G43.109, Paresthesia R20.2, Vision Simmons COMPARISON: None. Technique: Multiplanar T1-weighted, axial FLAIR, and susceptibility images were obtained without intravenous contrast. Following intravenous gadolinium-based contrast administration, axial T2-weighted, diffusion, and T1-weighted images (in multiple planes) were obtained. Contrast: 20 mL Dotarem Findings: There is no mass effect, midline shift, or evidence of intracranial hemorrhage. The ventricles are proportionate to the cerebral sulci. Normal major vascular intracranial flow-voids. Few, scattered small high T2/FLAIR signal foci in the white matter. There are approximately 5-6 lesions. Postcontrast images demonstrate no abnormal intracranial enhancement. No abnormality of the skull marrow signal. The visualized portions of paranasal sinuses, and mastoid air cells are relatively clear. The orbits are grossly unremarkable. MR/MR head/brain wo/w con Impression: Few, scattered high signal intensity foci on T2/FLAIR in the white matter, as above, which may relate to the reported history of migraine headache. The differential less likely would include demyelinating or small vessel ischemic disease. Electronically authenticated by: ROLANDO BERNARDO Date: 01/10/2024 13:12 Dictated By: Rolando Bernardo M.D. Signed By: 01/10/24 1315 DD/ 1312 TD/TT: Certified Nursing Assistant Instructor: Procedure Note Radiology, Radiologist, MD - 01/10/2024 [place] [address] Magnetic Resonance Report Signed Patient: LILLY BECKHAM AMR#: [id number] : 1985Acct:[id number] Age/Sex: 38 / FADM Date: 01/10/24 Loc: MRI Attending Dr: Eduar Smart M.D. Ordering Physician: EDUAR SMART Date of Service: 01/10/24 Procedure(s): MR head/brain wo/w con Accession Number(s): [id number] cc: EDUAR SMART ; Emmie Hill STREETCAR REPAIRER [place] [address] Patient Name: LILLY BECKHAM MRN: [id number] date: 1985 Sex: F Assigned Patient Location: MRI Current Patient Location: MRI Accession/Order Number: [id number] Exam Date: 01/10/2024 11:01 Report Date: 01/10/2024 13:12 At the request of: EDUAR SMART Procedure: MR head/brain wo/w con EXAM: MR head/brain wo/w con HISTORY: Migraine With Aura G43.109, Paresthesia R20.2, Vision Simmons COMPARISON: None. Technique: Multiplanar T1-weighted, axial FLAIR, and susceptibility images were obtained without intravenous contrast. Following intravenousgadolinium-based contrast administration, axial T2-weighted, diffusion, and T1-weightedimages (in multiple planes) were obtained. Contrast: 20 mL Dotarem Findings: There is no mass effect, midline shift, or evidence of intracranial hemorrhage. The ventricles are proportionate to the cerebral sulci. Normal majorvascular intracranial flow-voids. Few, scattered small high T2/FLAIR signal foci inthe white matter. There are approximately 5-6 lesions. Postcontrast images demonstrate no abnormal intracranial enhancement. No abnormality of the skull marrow signal. The visualized portions of paranasal sinuses, and mastoid air cells are relatively clear. The orbits aregrossly unremarkable. MR/MR head/brain wo/w con Impression: Few, scattered high signal intensity foci on T2/FLAIR in the whitematter, as above, which may relate to the reported history of migraine headache. The differential less likely would include demyelinating or small vesselischemic disease. Electronically authenticated by: ROLANDO BERNARDO Date: 3:12 Dictated By: Rolando Bernardo M.D. Signed By:01/10/24 1315 DD/ 1312 TD/TT: Certified Nursing Assistant Instructor: Eduar Smart MD IMG XR PROCEDURES Final Resul t documented in this encounter Visit Diagnoses Not on filedocumented in this encounter Care Teams Technical Sales Director Relationship Specialty Start Date End Date Charles Marrero DO [address] [place] [address] PCP - [facility] 03/05/24 Santo Ryan MD [address] [place] [address] PCP - General Family Medicine 12/17/24 Saloni Rubin PA PCP - [facility] 12/04/24 Saloni Rubin PA [address] [place] [address] Physician Offset Printing Pressmen Neurology 07/25/24 Eduar Smart MD [address] [place] [address] [place] [address] Referring Physician Neurology 07/25/24 12/16/24 Sherita Rodriguez PA [address] [place] [address] Physician Offset Printing Pressmen Neurology 12/17/24 documented as of this encounter
--- OUTSIDE RECORDS SUMMARY | 2025-04-10 17:29 | XMS_ITS | Clinical Summary ---
Author Organization [facility] Address [address], [address] [place] [address] Care Team Providers Care Loan Reviewer Name Role Phone Unavailable Primary Care Provider Unavailabl e Allergies No known active allergies Medications topiramate (TOPAMAX) 100 MG tablet Take 150 mg by mouth 2 times daily Active zolpidem (AMBIEN) 10 MG tablet Take 5 mg by mouth nightly as needed for Sleep. Active Social History Tobacco Use Types Packs/Day Years Used Date Smoking Tobacco: Every Day Cigarettes Smokeless Tobacco: Never Alcohol Use Standard Drinks/Week Comments Not Currently 0 (1 standard drink = 0.6 oz pur e alcohol) Comments No Sex and Gender Information Value Date Recorded Sex Assigned at Not on file Legal Sex Female 8:45 AM EDT Gender Identity Not on file Sexual Orientation Not on file Last Filed Vital Signs Vital Sign Reading Time Taken Comments Blood Pressure 98/57 03/01/2020 12:15 PM EDT Pulse 61 03/01/2020 12:15 PM EDT Temperature 36.6 C (97.9 F) 03/01/2020 9:00 AM EDT Respiratory Rate 14 03/01/2020 12:15 PM EDT Oxygen Saturation 100% 03/01/2020 12:15 PM EDT Inhaled Oxygen Concentration - - Weight 83.9 kg (185 lb) 03/01/2020 9:00 AM EDT Height 162.6 cm (5' 4 ) 03/01/2020 9:00 AM EDT Body Mass Index 31.76 03/01/2020 9:00 AM EDT Plan of Treatment Not on file Insurance [facility] MEDICAID
--- OUTSIDE RECORDS SUMMARY | 2025-04-10 17:29 | XMS_ITS | Encounter Summary ---
Author Organization [facility] Address [address] [place] [address] Care Team Providers Care Cosmetics Presser Name Role Phone Charles Marrero DO Unavailable Saloni Rubin Unavailable Eduar Chavez MD Unavailable [phone] Sherita Rodriguez Unavailable Santo Ryan MD Primary Care Provider +- Saloni Rubin Unavailable Encounter Details Date Type Department Care Team (Late st Contact Info) Description 03/03/2023 Abstract [facility] [address] [place] [address] Charles Marrero DO [address] [place] [address] Social History Tobacco Use Types Packs/Day Years [...] on filedocumented in this encounter Care Teams Cosmetics Presser Relationship Specialty Start Date End Date Charles Marrero DO [address] [place] [address] PCP - [facility] 03/05/24 Santo Ryan MD [address] [place] [id number] PCP - General Family Medicine 12/17/24 Saloni Rubin PA PCP - [facility] 12/04/24 Saloni Rubin PA [address] [place] [address] Physician Harness Brusher Neurology 07/25/24 Eduar Chavez MD [address] [place], [place] [address] [place] [address] Referring Physician Neurology 07/25/24 12/16/24 Sherita Rodriguez PA [address] [facility] [place] [phone] Physician Harness Brusher Neurology 12/17/24 documented as of this encounter
--- OUTSIDE RECORDS SUMMARY | 2025-04-10 17:29 | XMS_ITS | Clinical Summary ---
Author Organization [facility] Address [address] [place], [place] [address] Care Team Providers Care Cereal Chemist Name Role Phone Unavailable Primary Care Provider Unavailabl e Social History Tobacco Use Types Packs/Day Years Used Date Smoking Tobacco: Never Assessed Area Deprivation Index Answer Date Thomas rded National Score (1-100), lower number is lower ri sk 63 08/30/2024 State Score (1-10), lower number is lower risk 4 08/30/2024 Data from: https://www.neighborhoodatlas.medicine.[facility]/. Last address used for calculation [address] [facility] 08/30/2024 Comments Unknown Sex and Gender Information Value Date Recorded Sex Assigned at Not on file Legal Sex Female 3:02 PM EDT Gender Identity Not on file Sexual Orientation Not on file Plan of Treatment Health Maintenance Due Date Last Done Comments Anxiety Screening 2002 Depression Screening 2002 HIV Screening 2002 Hepatitis C Screening 2002 DTaP,Tdap,Td Vaccine (1 - Tdap) 2003 Hepatitis B Vaccine (1 of 3 - 19+ 3-dose series) 10/16 Cervical Cancer Screening 2005 Mammogram Screening 2024 Influenza Vaccine (#1) 2025 Insurance [employer]ICA[employer] Member Subscriber Plan / Payer (Ef fective 2023-Present) Name:Lilly Beckham Relation to Subscriber:Self Name:Lilly Beckham Payer ID:[id number] (NAIC) Group ID:[id number] Type:Medicaid Address: [facility] [address] [place] [id number]
--- OUTSIDE RECORDS SUMMARY | 2025-04-10 17:29 | XMS_ITS | Encounter Summary ---
Author Organization [facility] Address [address] [place] [address] Care Team Providers Care Formal Wear Rental Clerk Name Role Phone Charles Marrero DO Unavailable Saloni Rubin Unavailable Eduar Chavez MD Unavailable [phone] Sherita Rodriguez Unavailable Santo Ryan MD Primary Care Provider +- Saloni Rubin Unavailable Encounter Details Date Type Department Care Team (Late st Contact Info) Description 02/22/2023 Abstract [facility] [address] [place] [address] Charles Marrero DO [address] [place] [address] Social History Tobacco Use Types Packs/Day Years [...] on filedocumented in this encounter Care Teams Formal Wear Rental Clerk Relationship Specialty Start Date End Date Charles Marrero DO [address] [place] [address] PCP - [facility] 03/05/24 Santo Ryan MD [address] [place] [phone] PCP - General Family Medicine 12/17/24 Saloni Rubin PA PCP - [facility] 12/04/24 Saloni Rubin PA [address] [place] [address] Physician Security Alarm Installer Neurology 07/25/24 Eduar Chavez MD [address] [place], [place] [address] [place] [address] Referring Physician Neurology 07/25/24 12/16/24 Sherita Rodriguez PA [address] [facility] [place] [phone] Physician Security Alarm Installer Neurology 12/17/24 documented as of this encounter
--- OUTSIDE RECORDS SUMMARY | 2025-04-10 17:29 | XMS_ITS | Encounter Summary ---
Author Organization [facility] Address [address] [place] [address] Care Team Providers Care Flare Stitcher Name Role Phone Elida, Charles [place] Unavailable Saloni Rubin Unavailable Eduar Chavez MD Unavailable [phone] Sherita Rodriguez Unavailable Santo Ryan MD Primary Care Provider +- Saloni Rubin Unavailable Encounter Details Date Type Department Care Team (Late st Contact Info) Description 03/07/2024 Orders Only [facility] [address] [place] [phone] Saloni Rubin PA Social History Tobacco Use Types Packs/Day Years [...] Name Priority Date/Time Associated Diagnosis Comments MRI THORACIC SPINE W/WO CONTRAST Routine 03/07/2024 2:42 PM EDT documented in this encounter Results * MRI THORACIC SPINE W/WO CONTRAST (03/07/2024 2:42 PM EDT) Anatomical Region Laterality Modality Radiographic Lisa ging Saloni GREER IMG XR PROCEDURES Final Result documented in this encounter Visit Diagnoses Not on filedocumented in this encounter Care Teams Flare Stitcher Relationship Specialty Start Date End Date Charles Marrero DO [address] [place] [address] PCP - [facility] 03/05/24 Santo Ryan MD [address] [place] [phone] PCP - General Family Medicine 12/17/24 Saloni Rubin PA PCP - [facility] 12/04/24 Saloni Rubin PA [address], [facility] Physician Gimp Buttonhole Machine Operator Neurology 07/25/24 Eduar Chavez MD [address] [place] [address] Referring Physician Neurology 07/25/24 12/16/24 Sherita Rodriguez PA [address] [place] [phone] Physician Gimp Buttonhole Machine Operator Neurology 12/17/24 documented as of this encounter
--- OUTSIDE RECORDS SUMMARY | 2025-04-10 17:29 | XMS_ITS | Encounter Summary ---
Author Organization [facility] Address [address] [place] [address] Care Team Providers Care Patient Services Manager Name Role Phone Charles Marrero DO Unavailable Saloni Rubin Unavailable Eduar Chavez MD Unavailable [phone] Sherita Rodriguez Unavailable Santo Ryan MD Primary Care Provider +- Saloni Rubin Unavailable Encounter Details Date Type Department Care Team (Late st Contact Info) Description 02/14/2023 Abstract [facility] [address] [place] [address] Charles Marrero DO [address] [place] [address] Social History Tobacco Use Types Packs/Day Years [...] on filedocumented in this encounter Care Teams Patient Services Manager Relationship Specialty Start Date End Date Charles Marrero DO [address] [place] [address] PCP - [facility] 03/05/24 Santo Ryan MD [address] [place] [phone] PCP - General Family Medicine 12/17/24 Saloni Rubin PA PCP - [facility] 12/04/24 Saloni Rubin PA [address] [place] [address] Physician Civil Engineering Project Manager Neurology 07/25/24 Eduar Chavez MD [address] [place], [place] [address] [place] [address] Referring Physician Neurology 07/25/24 12/16/24 Sherita Rodriguez PA [address] [facility] [place] [phone] Physician Civil Engineering Project Manager Neurology 12/17/24 documented as of this encounter
--- OUTSIDE RECORDS SUMMARY | 2025-04-10 17:29 | XMS_ITS | Clinical Summary ---
Author Organization [facility] Address [address] [place] [address] Care Team Providers Care Granite Polisher Machine Name Role Phone Saloni Rubin Unavailable Sherita Rodriguez Unavailable Santo Ryan MD Primary Care Provider [phone] Saloni Rubin Unavailable Allergies Active Allergy Reactions Criticality Noted Date Comments Fentanyl 12/29/2023 Medications ondansetron (Zofran) 4 MG tablet Take 4 mg by mouth Daily 1 tablet Active famotidine (Pepcid) 20 MG tablet Take 20 mg by mouth Daily as needed for heartburn 1 tablet Active albuterol (2.5 MG/3ML) 0.083% nebulizer solution Take 3 mL by nebulization every 6 (six) hours if needed for wheezing Active albuterol HFA 90 mcg/act inhaler Inhale 1 puff every 4 (four) hours if needed for wheezing Active hydrOXYzine pamoate (Vistaril) 50 MG capsule Take 50 mg by mouth in the morning and 50 mg before bedtime. Active Symbicort 160-4.5 MCG/ACT inhaler Inhale 2 puffs Daily 4 Active Vraylar 1.5 MG capsule Take 1 capsule by mouth Daily 4 Active traZODone (Desyrel) 100 MG tablet Take 100 mg by mouth at bedtime Active Trintellix 5 MG tablet Take 1 tablet by mouth in the morning. 4 Active diazePAM (Valium) 2 MG tabletIndicatio ns:Claustrophob ia Take 30 minutes prior to MRI. Do not drive when taking this medication. 1 tablet 4 Active Additional Information Patient not taking.Reported on 01/16/2025 rizatriptan (Maxalt) 10 MG tabletIndicatio ns:Migraine without aura and without status migrainosus, not intractable Take 1 tablet (10 mg) by mouth 1 (one) time if needed for migraine (may repeat x1) May repeat in 2 hours if unresolved. Do not exceed 30 mg in 24 hours. 9 tablet 2 4 Active Additional Information Patient not taking.Reported on 01/16/2025 magnesium oxide (Mag-Ox) 400 (240 Mg) MG tabletIndicatio ns:Migraine without aura and without status migrainosus, not intractable TAKE 1 TABLET BY MOUTH EVERY DAY AT BEDTIME 90 tablet 1 4 Active Additional Information Patient not taking.Reported on 01/16/2025 Atogepant (Qulipta) 60 MG tabletIndicatio ns:Migraine without aura and without status migrainosus, not intractable Take 60 mg by mouth Daily 30 tablet 2 5 Active pregabalin (Lyrica) 50 MG capsuleIndicati ons:Neuropathic pain Take 1 capsule (50 mg) by mouth in the morning and 1 capsule (50 mg) before bedtime. Due 01/30/25. 60 capsule 2 5 Active OXcarbazepine (Trileptal) 300 MG tabletIndicatio ns:Migraine without aura and without status migrainosus, not intractable,Par esthesia TAKE 2 TABLETS (600 MG) BY MOUTH AT BEDTIME 180 tablet 1 5 Active divalproex (Depakote) 250 MG EC tabletIndicatio ns:Migraine without aura and without status migrainosus, not intractable Take 1 tablet (250 mg) by mouth in the morning and 1 tablet (250 mg) before bedtime. Do not crush, chew, or split. 60 tablet 2 5 Active Active Problems Problem Noted Date Diagnosed Date Migraine without status migrainosus, not intract able 12/29/2023 Paresthesias 12/29/2023 Encounters Date Type Department Care Team Description 01/16/2025 2:00 PM EDT Office Visit [facility] [address] [place] [phone] Sherita Rodriguez PA Brain fog (Primary Dx); Neuropathic pain; Migraine without aura and without status migrainosus, not intractable ; Paresthesia 01/16/2025 Bamboo flowsheet [facility] [address] [place] [phone] Sherita Rodriguez PA 01/16/2025 Travel from Last 3 Months Family History Medical History Relation Name Comments Depression Father Heart disease Father Migraines Father Depression Mother Migraines Mother Seizures Mother Relation Name Status Comments Father Alive Maternal Grandfather Maternal Grandmother Mother Alive Paternal Grandfather Paternal Grandmother Social History Tobacco Use Types Packs/Day Years Used Date Smoking Tobacco: Every Day Cigarettes 0.5 27.6 Started: 09/05/1997 Smokeless Tobacco: Never Tobacco Cessation:Ready to Q uit: Not Asked; Counseling Given: Not Answered Comments:Smokes 5 mins after waking up Alcohol [...] Sign Reading Time Taken Comments Blood Pressure 118/80 01/16/2025 1:46 PM EDT Pulse 84 07/25/2024 2:32 PM EST Temperature 36.6 C (97.8 F) 10/24/2023 8:29 AM EST Respiratory Rate 16 07/25/2024 2:32 PM EST Oxygen Saturation 97% 07/25/2024 2:32 PM EST Inhaled Oxygen Concentration - - Weight 94.8 kg (209 lb) 01/16/2025 1:46 PM EDT Height 162.6 cm (5' 4 ) 01/16/2025 1:46 PM EDT Body Mass Index 35.87 01/16/2025 1:46 PM EDT Plan of Treatment Health Maintenance Due Date Last Done Comments Pap Smear 2005 Cervical Cancer Screening 2014 HPV/Cotest 2014 Mammogram 2024 Influenza Vaccine (#1) 2025 Insurance [employer] Care Teams Granite Polisher Machine Relationship Specialty Start Date End Date Santo Ryan MD [address] [place] [address] PCP - General Family Medicine 12/17/24 Saloni Rubin PA PCP - [facility] 12/04/24 Saloni Rubin PA Physician Inhalation Therapy Aides Teacher Neurology 07/25/24 Sherita Rodriguez PA [address] [place] [address] Physician Inhalation Therapy Aides Teacher Neurology 12/17/24
--- OUTSIDE RECORDS SUMMARY | 2025-04-10 17:29 | XMS_ITS | Encounter Summary ---
Author Organization [facility] Address [address] [place] [address] Care Team Providers Care Water Pump Operator Name Role Phone Charles Marrero DO Unavailable Saloni Rubin Unavailable Eduar Chavez MD Unavailable [phone] Sherita Rodriguez Unavailable Santo Ryan MD Primary Care Provider +- Saloni Rubin Unavailable Encounter Details Date Type Department Care Team (Late st Contact Info) Description 02/22/2023 Abstract [facility] [address] [place] [address] Charles Marrero DO [address] [place] [address] Social History Tobacco Use Types Packs/Day Years [...] on filedocumented in this encounter Care Teams Water Pump Operator Relationship Specialty Start Date End Date Charles Marrero DO [address] [place] [address] PCP - [facility] 03/05/24 Santo Ryan MD [address] [place] [phone] PCP - General Family Medicine 12/17/24 Saloni Rubin PA PCP - [facility] 12/04/24 Saloni Rubin PA [address] [place] [address] Physician Garden Labourer Neurology 07/25/24 Eduar Chavez MD [address] [place], [place] [address] [place] [address] Referring Physician Neurology 07/25/24 12/16/24 Sherita Rodriguez PA [address] [facility] [place] [phone] Physician Garden Labourer Neurology 12/17/24 documented as of this encounter
--- OUTSIDE RECORDS SUMMARY | 2025-04-10 17:29 | XMS_ITS | Encounter Summary ---
Author Organization [facility] Address [address] [place] [address] Care Team Providers Care Snow Remover Name Role Phone Charles Marrero DO Unavailable Saloni Rubin Unavailable Eduar Chavez MD Unavailable [phone] Shreita Rodriguez Unavailable Santo Ryan MD Primary Care Provider +- Saloni Rubin Unavailable Encounter Details Date Type Department Care Team (Late st Contact Info) Description 02/14/2023 Abstract [facility] [address] [place] [address] Charles Marrero DO [address] [place] [address] Social History Tobacco Use Types Packs/Day Years [...] on filedocumented in this encounter Care Teams Snow Remover Relationship Specialty Start Date End Date Charles Marrero DO [address] [place] [address] PCP - [facility] 03/05/24 Santo Ryan MD [address] [place] [phone] PCP - General Family Medicine 12/17/24 Saloni Rubin PA PCP - [facility] 12/04/24 Saloni Rubin PA [address] [place] [address] Physician Filament Cutter Neurology 07/25/24 Eduar Chavez MD [address] [place], [place] [address] [place] [address] Referring Physician Neurology 07/25/24 12/16/24 Sherita Rodriguez PA [address] [facility] [place] [phone] Physician Filament Cutter Neurology 12/17/24 documented as of this encounter
--- NOTE | 2025-04-10 17:40 | ED.GENADUL1 ---
HPI HPI - General Adult General Chief complaint: Nausea/Vomiting/Diarrhea Stated complaint: THROWING UP BLOOD/ HAS MS Time Seen by Provider: 04/10/25 17:14 Source: patient Mode of arrival: walk-in Limitations: no limitations History of Present Illness HPI narrative: Patient is a 39-year-old female presenting to the emergency department with a chief complaint of epigastric abdominal pain. Patient states this feels like her exact episode of pancreatitis 2 years ago. She states her first flareup of pancreatitis was 20 years ago when she required a cholecystectomy. She states that over the last few days she has had persistent vomiting, abdominal pain, and inability to tolerate p.o. The only thing she can seem to tolerate is a minimal amount of water. She denies constipation or diarrhea. No fevers or chills. No recent abdominal surgeries, though she does have a history of prior appendectomy, cholecystectomy, hysterectomy, and hernia repair. She denies associated fevers or chills. No chest pain or shortness of breath. She mentions she has a history of multiple sclerosis. Her last infusion of Ocrevus was October of this year. She states she has been taking Protonix for rest reflux, however this minimally helps. She states that she has a small amount of blood in her vomitus earlier today. Related Data Home Medications ?Medication ?Instructions ?Recorded ?Confirmed oxcarbazepine 300 mg tablet 600 mg PO .QHS 10/30/24 04/10/25 divalproex 250 mg tablet,delayed 250 mg PO Q12H 04/10/25 04/10/25 release pantoprazole 20 mg tablet,delayed 20 mg PO .QD 04/10/25 04/10/25 release pregabalin 50 mg capsule 50 mg PO Q12H 04/10/25 04/10/25 Previous Rx's ?Medication ?Instructions ?Recorded metoclopramide HCl 10 mg tablet 10 mg PO Q8H PRN nausea and 04/10/25 (Reglan) vomiting #14 tabs Allergies Allergy/AdvReac Type Severity Reaction Status Date / Time fentanyl Allergy hallucinati Verified 04/10/25 17:16 on Opioid HPI Opioid Management Most Recent Opioid Data: Last Pain Scale 8 Today, 17:11 Review of Systems ROS Status of ROS 10 or more systems reviewed and unremarkable except as noted in history and below [facility] Medical History (Updated 04/10/25 @ 18:57 by Jluis Berry DO) Multiple sclerosis ?G35 - Multiple sclerosis (ICD-10) History of blood transfusion ?Z92.89 - Personal history of other medical treatment (ICD-10) Anemia ?D64.9 - Anemia, unspecified (ICD-10) Deep vein thrombosis ?I82.409 - Acute embolism and thrombosis of unspecified deep veins of unspecified lower extremity (ICD-10) Insomnia ?G47.00 - Insomnia, unspecified (ICD-10) Panic attacks ?F41.0 - Panic disorder [episodic paroxysmal anxiety] (ICD-10) Anxiety ?F41.9 - Anxiety disorder, unspecified (ICD-10) COVID-19 ?U07.1 - COVID-19 (ICD-10) Sleep apnea ?G47.30 - Sleep apnea, unspecified (ICD-10) Pneumonia ?J18.9 - Pneumonia, unspecified organism (ICD-10) Bronchitis ?J40 - Bronchitis, not specified as acute or chronic (ICD-10) Asthma ?J45.909 - Unspecified asthma, uncomplicated (ICD-10) Seizures ?R56.9 - Unspecified convulsions (ICD-10) Migraine ?G43.909 - Migraine, unspecified, not intractable, without status migrainosus (ICD-10) Kidney stones ?N20.0 - Calculus of kidney (ICD-10) Heartburn ?R12 - Heartburn (ICD-10) GERD (gastroesophageal reflux disease) ?K21.9 - Gastro-esophageal reflux disease without esophagitis (ICD-10) Bradycardia associated with anesthesia Abnormal uterine bleeding ?N93.9 - Abnormal uterine and vaginal bleeding, unspecified (ICD-10) Pelvic pain ?R10.2 - Pelvic and perineal pain (ICD-10) Menorrhagia ?N92.0 - Excessive and frequent menstruation with regular cycle (ICD-10) Dysmenorrhea ?N94.6 - Dysmenorrhea, unspecified (ICD-10) Delayed recovery from anesthesia Surgical History H/O lithotripsy ?Z98.890 - Other specified postprocedural states (ICD-10) History of endometrial ablation ?Z98.890 - Other specified postprocedural states (ICD-10) History of cholecystectomy ?Z90.49 - Acquired absence of other specified parts of digestive tract (ICD-10) History of bilateral salpingectomy ?Z90.79 - Acquired absence of other genital organ(s) (ICD-10) History of section ?Z98.891 - History of uterine scar from previous surgery (ICD-10) History of appendectomy ?Z90.49 - Acquired absence of other specified parts of digestive tract (ICD-10) History of dilation and curettage ?Z98.890 - Other specified postprocedural states (ICD-10) Family History (Updated 02/09/23 @ 12:44 by Sherita Jean NP) Other Family history of COPD (chronic obstructive pulmonary disease) Family history of DVT Family history of breast cancer Family history of heart disease Family history of hypertension Family history of myocardial infarction Family history of ovarian cancer Family history of stroke Family history of uterine cancer Social History Within the past year, how often did you have a drink containing alcohol: monthly or less Smoking status: Current every day smoker Non-prescribed substance use: cannabis (any form) Previous occupational history: [employer] Highest level of school completed/degree received: high school graduate Little interest or pleasure in doing things: not at all Feeling down, depressed, or hopeless: not at all Gender Identity: female Exam Narrative Exam Narrative: CONSTITUTIONAL: Appears uncomfortable, sitting on the edge of the bed holding her stomach, not actively vomiting, awake and mentating appropriately SKIN: Warm and mildly diaphoretic. EYES: No scleral icterus. EARS, NOSE, THROAT: Tacky mucous membranes. RESPIRATORY: Clear to auscultation bilaterally, no wheezes, crackles, or stridor, no use of accessory muscles CARDIOVASCULAR: Normal rate and regular rhythm. There is no S3, S4, murmur, rub. GASTROINTESTINAL: Tenderness to palpation in the epigastrium. Negative Yeh's sign. There is no guarding or rebound tenderness. MUSCULOSKELETAL: No peripheral edema. NEUROLOGIC: Patient is awake and alert. Facies were symmetrical. Constitutional Vital Signs, click to edit/add: Last Vital Signs Temp 97.8 F 04/10/25 17:11 Pulse 71 04/10/25 17:11 Resp 16 04/10/25 17:11 BP 118/75 04/10/25 17:11 Pulse Ox 97 08/06/25 17:11 O2 Del Method Room Air 04/10/25 17:11 Course Vital Signs Vital signs: Vital Signs Temperature 97.8 F 04/10/25 17:11 Pulse Rate 71 04/10/25 17:11 Respiratory Rate 16 04/10/25 17:11 Blood Pressure 118/75 04/10/25 17:11 Pulse Oximetry 97 04/10/25 17:11 Oxygen Delivery Method Room Air 04/10/25 17:11 Temperature 97.8 F 04/10/25 17:11 Pulse Rate 71 04/10/25 17:11 Respiratory Rate 16 04/10/25 17:11 Blood Pressure 118/75 04/10/25 17:11 Pulse Oximetry 97 04/10/25 17:11 Oxygen Delivery Method Room Air 04/10/25 17:11 Medical Decision Making MDM Narrative Medical decision making narrative: Patient is a 39-year-old female presenting to the emergency department for 3-day history of epigastric abdominal pain. Vital signs on arrival are within normal limits. She is afebrile and hemodynamically stable. Physical examination as noted above, however is notable for tenderness to palpation in the epigastrium without peritoneal signs. Given the patient's history of pancreatitis, I do believe her presentation today is consistent with a flare-up of pancreatitis. She does have prior cholecystectomy and appendectomy, ruling out these etiologies. Other potential etiologies include gastritis, Minna-Fuentes tear, or gastroenteritis. She has no chest pain/SOB to suggest esophageal perforation. Patient's exam is not consistent with surgical etiologies of abdominal pain such as perforated viscus. IV was established and laboratory studies were obtained. Patient will be treated symptomatically with IV Zofran, IV morphine, IV famotidine, and 2 L bolus normal saline. Laboratory studies were overall unremarkable. She had a mild leukocytosis, likely reactive in secondary to vomiting. She has no elevation in lipase, making pancreatitis of low likelihood. There is hypomagnesemia, mild and secondary to vomiting/poor oral intake. No transaminitis or hyperbilirubinemia. No significant electrolyte, metabolic, or acute kidney injury. On re-evaluation, patient states she fees somewhat improved. I did offer an additional dose of anti-emetics and PO challenge, however patient prefers to be discharged home. I do believe this is reasonable as she is hemodynamically stable and is reliable enough to return to the ED if her symptoms should worsen. Her repeat abdominal exam remains non-peritonitic. I do believe the patient is stable for discharge at this time. Patient's presentation is most likely consistent with gastritis, non-specific abdominal pain. They were instructed to follow up with her PCP for further care. Return precautions were given including any new or worsening symptoms. They were given a prescription for Reglan 10mg q8h prn for nausea. Patient understands and agrees to the plan. Differential Diagnosis Differential Diagnosis: Pancreatitis, gastritis, Minna-Fuentes tear, gastroenteritis Medical Records Medical records reviewed: Yes I reviewed the patient's medical records Lab Data Lab results reviewed: Yes I reviewed the patient's lab results Labs: Lab Results 04/10/25 Range/Units 17:20 WBC 12.6 H (4.0-11.0) 10^3/uL RBC 4.15 L (4.20-5.40) 10^6/uL Hgb 13.1 (12.0-16.0) g/dL Hct 37.5 (36.0-48.0) % MCV 90.4 (81.0-99.0) fL MCH 31.6 (26.7-34.0) pg MCHC 34.9 (29.9-35.2) g/dL RDW 12.3 (11.0-15.0) % Plt Count 304 (150-450) 10^3/uL MPV 10.0 (9.5-13.5) fL Neut % (Auto) 73.6 (43.0-75.0) % Lymph % (Auto) 19.4 L (20.5-60.0) % [place] % (Auto) 5.4 (1.7-12.0) % Eos % (Auto) 0.9 (0.9-7.0) % Baso % (Auto) 0.5 (0.2-2.0) % Neut # (Auto) 9.3 H (1.4-6.5) 10^3/uL Lymph # (Auto) 2.5 (1.2-3.8) 10^3/uL [place] # (Auto) 0.7 (0.3-0.8) 10^3/uL Eos # (Auto) 0.1 (0.0-0.7) 10^3/uL Baso # (Auto) 0.1 (0.0-0.1) 10^3/uL Abs Immat Gran (auto) 0.03 (0.00-0.03) 10^3/uL Imm/Tot Granulo (auto) 0.2 (0.0-0.5) % Sodium 140 (136-145) mmol/L Potassium 3.8 (3.5-5.1) mmol/L Chloride 106 (98-107) mmol/L Carbon Dioxide 27.6 (21.0-32.0) mmol/L Anion Gap 10.2 BUN 17.0 (7.0-18.0) mg/dL Creatinine 0.72 (0.55-1.02) mg/dL Est GFR ( Amer) >60 (>=60 mL/min/1.73m^2) Est GFR (Non-Af Amer) >60 (>=60 mL/min/1.73m^2) BUN/Creatinine Ratio 23.6 Glucose 87 (74-106) mg/dL Calcium 9.0 (8.5-10.1) mg/dL Magnesium 1.6 L (1.8-2.4) mg/dL Total Bilirubin 0.2 (0.2-1.0) mg/dL AST 19 (15-37) U/L ALT 25 (14-59) U/L Alkaline Phosphatase 72 (46-116) U/L Total Protein 7.0 (6.4-8.2) g/dL Albumin 3.4 (3.4-5.0) g/dL Globulin 3.6 g/dL Albumin/Globulin Ratio 0.9 Lipase 26.0 (16.0-77.0) U/L Discharge Plan Discharge Chief Complaint: Nausea/Vomiting/Diarrhea Clinical Impression: Abdominal pain Patient Disposition: Home, Self-Care Prescriptions / Home Meds: New metoclopramide HCl [Reglan] 10 mg tablet 10 mg PO Q8H PRN (Reason: nausea and vomiting) Qty: 14 0RF No Action oxcarbazepine 300 mg tablet 600 mg PO .QHS divalproex 250 mg tablet,delayed release (DR/EC) 250 mg PO Q12H pantoprazole 20 mg tablet,delayed release (DR/EC) 20 mg PO .QD pregabalin 50 mg capsule 50 mg PO Q12H Print Language: Danish Instructions: Acute Abdominal Pain (ED) Referrals: Emmie Hill CAMPAIGN DIRECTOR [Primary Care Provider] - 1 week
--- OUTSIDE RECORDS SUMMARY | 2025-04-10 17:43 | XMS_ITS | CCD ---
Author Organization [facility] ion [facility] Care Team Providers Care Supervisor Detasseling Crew Name Role Phone PRINCESS BUCHANAN Attending Unavailable Unavailable Primary Care Provider Mukund Corona Unavailable Radha Arciniega Unavailable Christopher Mendoza Unavailable MD Mukund Baron Attending Provider NON STAFF Primary Care Provider UnavailMD Christopher Jacobson Attending Provider Jimmie Crawford DDS Attending Unavailable [facility] Un[facility] ilable NEY, DR MARYURI Parker Admitting Unavailabl e NEY, DR MARYURI Parker Consulting Unavailabl e NEY, DR MARYURI Parker Attending Unavailabl e [facility] MICHAELA ., KRISHNA Attending Unavailable MICHAELA ., KRISHNA Admitting Unavailable NICOL .PERCY Consulting Unavailabl e MICHAELA ., KRISHNA Consulting Unavailable [facility] LOW ESCALANTE Attending Unavailable LOW ESCALANTE Consulting Unavailable LOW ESCALANTE Admitting Unavailable [facility] LOW ESCALANTE Attending Unavailable LOW ESCALANTE Consulting Unavailable BORIS, LOW Admitting Unavailable [facility] AYLIN ., DR EVERETT Admitting Unavailable AYLIN ., DR EVERETT Attending Unavailable AYLIN ., DR EVERETT Consulting Unavailable [facility] Consulting Unava ilable Critical access hospital Care Unava ilable AYLIN ., DR EVERETT Admitting Unavailable AYLIN ., DR EVERETT Attending Unavailable [facility] HAY ., DR FRIED Consulting Unavailable LOW ESCALANTE Admitting Unavailable LOW ESCALANTE Attending Unavailable [facility] DIAB ., RENA Attending Unavailable JUDY CONKLIN Consulting Unavailable DIAB ., RENA Admitting Unavailable DIAB ., RENA Consulting Unavailable [facility] GUILLE, DR RANJAN Joyce Admitting Unavailable GUILLE, DR RANJAN Joyce Attending Unavailable GUILLE, DR RANJAN Joyce Consulting Unavailable MARIAM SANCHEZ Consulting Unavailable [facility] AYLIN ., DR EVERETT Attending Unavailable AYLIN ., DR EVERETT Admitting Unavailable [facility] AYLIN ., DR EVERETT Admitting Unavailable AYLIN ., DR EVERETT Attending Unavailable AYLIN ., DR EVERETT Consulting Unavailable AGUBOSIM, AMOS Consulting Unavailable DORKOSKIE, TRACEY Consulting Unavailable [facility] Consulting Unava ilable GLENN JIN Attending Unavailable [facility] GLENN JIN Admitting Unavailable GIULIANO MANZO Consulting Unavailable GLENN JIN Consulting Unavailable MUKUND MASSEY Consulting Unavailable POLICARO, ESTHER Consulting Unavailable [facility] AMBERLY, DR DARIEN Silvestre Consulting Unavailable NADERER, DR DARIEN Silvestre Attending Unavailable NADERER, DR DARIEN Silvestre Admitting Unavailable HAY ., DR FRIED Consulting Unavailable KARLEEPRINCESS Consulting Unavailable .MEGAN DUGAN Consulting Unavailable LORAINE, MUKUND Attending Unavailable OLENUBIA, MUKUND Admitting Unavailable [facility] Un[facility] NEY, DR MARYURI Parker Attending Unavailabl ashley BREWSTER, DR MARYURI Parker Admitting Unavailabl ashley BREWSTER, DR MARYURI Parker Consulting Unavailabl ashley LIRIANO, DR LOUIE Joyce Consulting Unavailable [facility] NEY, DR MARYURI Parker Attending Unavailabl e NEY, DR MARYURI Parker Admitting Unavailabl e NEY, DR MARYURI Parker Consulting Unavailjuan m LYLE, DR SREE Peña Consulting Unavailable [facility] Un[facility] il[facility] LOW ESCALANTE Attending Unavailable NICOL .PERCY Consulting UnavailLOW De Santiago Admitting Unavailable SREE MCCLENDON Consulting Unavailable PATRICIA Piper Attending Provider OMKAR Hill Emmie Primary Care Provider [phone] Judy SCHULTZ Primary Care Physician [phone] Charles Marrero DO Unavailable Saloni Barton Unavailable Louie Chavez MD Unavailable Unavailable Primary Care Provider Unavailabl e PATRICIA PIPER Referring Unavailable PATRICIA PIPER Attending Unavailable PATRICIA PIPER Admitting Unavailable Liz [facility] Primary Care Provider [phone] Sherita Rodriguez PA-C Attending Provider Sherita Rodriguez PA-C Referring Provider [phone] Saloni Piper Attending Unavailable [facility] Unavailable Saloni Piper Admitting [facility] Unavailable Sherita Rodriguez Admitting Unavailable Sherita Rodriguez Attending Unavailable Sherita Rodriguez Referring Unavailable Sherita Abernathy Unavailable Santo Ryan MD Primary Care Provider SALONI PIPER Attending Unavailable SALONI PIPER Attending Unavailable LOUIE CHAVEZ Attending Unavailable SALONI PIPER Attending Unavailable SHERITA RODRIGUEZ Attending Unavailable SHERITA RODRIGUEZ Attending Unavailable Allergies Allergy Classification Reported Allergen(s) Allergy Type Date of Onset Reaction(s) Facility (15 sources) [facility] (1 source) [facility] Drug Allergy [facility] (1 source) [facility]enta[facility] Drug Allergy 4 [facility] Rep[facility] Medications Current Medications Medication Drug Class(es) Dates Sig (Normalized) Sig (Original) Acetaminophen / oxyCODONE (2 sources) Opioid Agonist Percocet Active acetylcholine 10% solution - [facility] (1 source) Start: 07-31-2024 End: 08-01-2024 acetylcholine 10% solution - [facility] [id number] 200 actuat albuterol 0.09 mg/actuat metered dose inhaler (20 sources) beta2-Adrenergic Agonist Start: 02-22-2024 take 1 puff(s) by inhalation every four to six hours as needed Albuterol Sulfate 90 mcg/actuation HFA aerosol inhaler Active 2 PUFF INHALATION EVERY 4-6 HOURS as needed February 21, 2024 11:00pm albuterol (2.5 M G/3ML) 0.083% nebulizer solution Take 3 mL by nebulization every 6 (six) hours if needed for wheezing Active take 1 puff(s) by in halation every four hours for wheezing albuterol HFA 90 mcg/act inhaler Inhale 1 puff every 4 (four) hours if needed for wheezing Active Atogepant (Qulipta) 60 MG tablet (13 sources) Start: 10-31-2024 take 1 tablet by mouth once daily Atogepant (Qulipta) 60 MG tablet Indications: Migraine without aura and without status migrainosus, not intractable (CMS/HCC) Take 60 mg by mouth Daily 30 tablet 2 10/31/2024 Active Start: 04-10-2024 End: 10-31-2024 take 1 tablet by mouth once daily Atogepant (Qulipta) 60 MG tablet Indications: Migraine without aura and without status migrainosus, not intractable (CMS/HCC) Take 60 mg by mouth Daily 30 tablet 2 04/10/2024 10/31/2024 Discontinued (Reorder) Start: 04-10-2024 take 1 tablet by rosenda th once daily Atogepant (Qulipta) 60 MG tablet [...] formoterol fumarate 0.0045 mg/actuat metered dose inhaler (11 sources) Corticosteroid, beta2-Adrenergic Agonist Start: 11-01-2023 take 2 puff(s) by inhalation once daily Symbicort 160-4.5 MCG/ACT inhaler Inhale 2 puffs Daily 11/01/2023 Active cariprazine 1.5 mg oral capsule (14 sources) Atypical Antipsychotic Start: 12-20-2023 take 1 capsule by mouth once daily Vraylar 1.5 MG capsule Take 1 capsule by mouth Daily 12/20/2023 Active cyclobenzaprine hydrochloride 5 mg oral tablet (4 sources) Muscle Relaxant take 1 tablet by mouth every twenty-four hours Cyclobenzaprine HCl 5 MG 1 tablet at bedtime as needed Orally Once a day Active diazePAM 2 mg oral tablet (11 sources) Benzodiazepine Start: 01-09-2024 diazePAM (Valium) 2 MG tablet Indications: Claustrophobia (CMS/HCC) Take 30 minutes prior to MRI. Do not drive when taking this medication. 1 tablet 01/09/2024 Active famotidine 20 mg oral tablet (11 sources) Histamine-2 Receptor Antagonist take 1 tablet by mouth every twenty-four hours as needed for gastroesophageal reflux disease famotidine (Pepcid) 20 MG tablet Take 20 mg by mouth Daily as needed for heartburn 1 tablet Active hydrOXYzine pamoate 50 mg oral capsule (14 sources) Antihistamine Start: 02-22-2024 take 1 capsule by mouth twice daily as needed Hydroxyzine Pamoate 50 mg capsule Active 50 MG PO Twice daily as needed February 21, 2024 11:00pm lamoTRIgine 25 mg oral tablet (14 sources) Mood Stabilizer, Anti-epileptic Agent Start: 02-22-2024 take 2 tablets by mouth once daily Lamotrigine 25 mg tablet Active 50 MG PO Daily February 21, 2024 11:00pm Start: 02-22-2024 take 50 mg by mouth once daily Lamotrigine Active 50 MG PO Daily February 22, 2024 12:00am Start: 12-23-2023 End: 01-16-2025 take 1 tablet by mouth in the morning lamoTRIgine (LaMICtal) 25 MG tablet Take 25 mg by mouth in the morning and 25 mg before bedtime. 12/23/2023 01/16/2025 Discontinued magnesium oxide 400 mg oral tablet (9 sources) Start: 08-30-2024 take 1 tablet by mouth once daily at bedtime magnesium oxide (Mag-Ox) 400 (240 Mg) MG tablet Indications: Migraine without aura and without status migrainosus, not intractable (CMS/HCC) TAKE 1 TABLET BY MOUTH EVERY DAY AT BEDTIME 90 tablet 1 08/30/2024 Active Start: 07-25-2024 take 1 tablet by rosenda th at bedtime magnesium oxide (Mag-Ox) 400 mg tablet Indications: Migraine without aura and without status migrainosus, not intractable (CMS/HCC) Take 1 tablet (400 mg) by mouth at bedtime 30 tablet 2 07/25/2024 Active 24 hr metFORMIN hydrochloride 500 mg extended release oral tablet (4 sources) Biguanide Start: 02-22-2024 End: 03-21-2024 take 1 tablet by mouth once daily Metformin 500 mg tablet extended release 24 hr Active 500 MG PO Daily March 21, 2024 10:38am naproxen 250 mg oral tablet (4 sources) Nonsteroidal Anti-inflammatory Drug take 1 tablet by mouth every twelve hours Naproxen 250 MG 1 tablet with food or milk Orally Twice a day Active ondansetron 4 mg oral tablet (11 sources) Serotonin-3 Receptor Antagonist take 1 tablet by mouth once daily ondansetron (Zofran) 4 MG tablet Take 4 mg by mouth Daily 1 tablet Active OXcarbazepine 300 mg oral tablet (18 sources) Anti-epileptic Agent Start: 11-19-2024 End: 01-16-2025 take 2 tablets by mouth at bedtime OXcarbazepine (Trileptal) 300 MG tablet Indications: Migraine without aura and without status migrainosus, not intractable (CMS/HCC) , Paresthesia TAKE 2 TABLETS (600 MG) BY MOUTH AT BEDTIME 180 tablet 1 01/16/2025 Active Start: 07-25-2024 take 0.5 tablet by m outh once daily in the morning, then take [...] tablet 2 04/10/2024 Active Start: 02-22-2024 take 1 tablet by [place] once daily Oxcarbazepine 300 mg tablet Active 300 MG PO Daily February 21, 2024 11:00pm predniSONE 10 mg oral tablet (1 source) Start: 03-01-2020 End: 03-11-2020 take 4 tablets by mouth once daily predniSONE (DELTASONE) 10 MG tablet Take 4 tablets by mouth once daily for 5 days 20 tablet 0 03/01/2020 03/11/2020 Active pregabalin 50 mg oral capsule (7 sources) Start: 10-31-2024 End: 02-15-2025 take 1 capsule by mouth in the morning pregabalin (Lyrica) 50 MG capsule Indications: Neuropathic pain Take 1 capsule (50 mg) by mouth in the morning and 1 capsule (50 mg) before bedtime. Due 01/30/25. 60 capsule 2 01/16/2025 02/15/2025 Active rizatriptan 10 mg oral tablet (11 sources) Serotonin-1b and Serotonin-1d Receptor Agonist Start: [...] 03/14/2024 Active SUMAtriptan 50 mg oral tablet (3 sources) Serotonin-1b and Serotonin-1d Receptor Agonist Start: 02-22-2024 take 1 mg by mouth once as needed Sumatriptan Succinate 50 mg tablet Active MG PO Once as needed February 21, 2024 11:00pm Start: 02-22-2024 take 1 mg by mouth once Sumatr iptan Succinate Active MG PO Once February 22, [...] Active traZODone hydrochloride 100 mg oral tablet (14 sources) Serotonin Reuptake Inhibitor Start: 02-22-20 take 1 tablet by mouth once daily at bedtime as needed Trazodone 100 mg tablet Active 100 MG PO Daily at bedtime as needed February 21, 2024 11:00pm divalproex sodium 250 mg delayed release oral tablet (2 sources) Mood Stabilizer, Anti-epileptic Agent Start: 01-17-20 End: 02-16-20 take 1 tablet by mouth in the morning divalproex (Depakote) 250 MG EC tablet Indications: Migraine without aura and without status migrainosus, not intractable (CMS/HCC) Take 1 tablet (250 mg) by mouth in the morning and 1 tablet (250 mg) before bedtime. Do not crush, chew, or split. 60 tablet 2 01/16/2025 02/15/2025 Active varenicline 0.5 mg oral tablet (3 sources) Partial Cholinergic Nicotinic Agonist Start: 02-22-20 take 1 tablet by mouth twice daily Varenicline Tartrate 0.5 mg tablet Active 0.5 MG PO Twice daily February 21, 2024 11:00pm vortioxetine 10 mg oral tablet (14 sources) Start: 02-22-20 take 1 tablet by mouth once daily Vortioxetine (Trintellix) 10 mg tablet Active 10 MG PO Daily February 21, 2024 11:00pm Start: 12-21-2023 take 1 tablet by rosenda [...] Date Documented Da te Episodic/Chronic Administrative/social admission (5 sources) Patient encounter status; Translations: [Dietary counseling and surveillance] 02-22-2024 Episodic Anxiety disorders (3 sources) Anxiety; Translations: [Anxiety disorder, unspecified] 02-22-2024 Chronic Asthma (4 sources) Unspecified asthma, uncomplicated; Translations: [Asthma] Onset: 09-08-2022 02-22-2024 Chronic Blindness and vision defects (8 sources) Eye / vision finding; Translations: [Unspecified [...] INCONTINENCE] Onset: 04-19-2022 Chronic Headache; including migraine (20 sources) Migraine; Translations: [Migraine, unspecified, not intractable, [...] W/REG CYCL] Onset: 04-16-2022 Chronic Mood disorders (6 sources) Bipolar disorder; Translations: [Bipolar disorder, unspecified] 02-22-2024 Chronic Nausea and vomiting (3 sources) Nausea with vomiting, unspecified; Translations: [NAUSEA WITH VOMITING UNSPECIFIED] Onset: 10-22-2022 Episodic Other aftercare (1 source) Other superintendent terminal (current) drug therapy; Translations: [OTH [facility] CURRENT DRUG THERAPY] Onset: 12-21-2022 Episodic Other connective tissue disease (4 sources) Cramp; Translations: [Cramp and spasm] 07-25-2024 Episodic Other connective tissue disease (6 sources) Neuropathic pain; Translations: [Neuralgia and neuritis, unspecified] 10-31-2024 Episodic Other disorders of stomach and duodenum (4 sources) Indigestion; Translations: [Functional dyspepsia] Episodic Other endocrine disorders (3 sources) Polycystic ovary syndrome; Translations: [Polycystic ovarian [...] Onset: 03-25-2022 Chronic Other nervous system disorders (19 sources) Paresthesia; Translations: [Paresthesia of skin] Onset: 12-29-2023 12-29-2023 Episodic Other nervous system disorders (4 sources) Hyperreflexia; Translations: [Abnormal reflex] 07-25-2024 Episodic Other nervous system disorders (4 sources) Impaired cognition; Translations: [Other symptoms and signs involving cognitive functions and awareness] 11-05-2024 Episodic Other nervous system disorders (2 sources) Abnormal gait; Translations: [Unsteadiness on feet] 11-05-2024 Episodic Other nutritional; endocrine; and metabolic disorders (3 sources) Obese class II; Translations: [Obesity, unspecified] 02-22-2024 Chronic Other nutritional; endocrine; and metabolic disorders (2 sources) Obesity, unspecified; Translations: [Obesity, unspecified] 02-22-2024 Chronic Other upper respiratory infections (6 sources) Acute upper respiratory infection, unspecified; Translations: [Acute laryngitis] Onset: 11-05-2022 Episodic Personality disorders (3 sources) Personality disorder; Translations: [Personality disorder, unspecified] [...] [SOLITARY PULMONARY NODULE] Onset: 09-08-2022 Episodic Other nervous system disorders (1 source) Paresthesia of skin; Translations: [Paresthesia of skin] Onset: 03-01-2024 Episodic Other non-traumatic joint disorders (3 sources) [...] Test Name Value Interpretation Reference Range Facility [facility] 08-20-2024 [facility] Telephone (TOAU) LILLY BECKHAM ([id number]) 1985 F Date Time Provider Department 08/20/24 [...] medications without consulting their prescribing physician. [facility] recommended the following medication discontinuation [...] Status:Closed by KAREN LONG on 08/20/24 Normal [facility] MR cervical spine wo/w conon 03-01-2024 MR cervical spine wo/w con [facility] [place] [address] [place] [address] MRI Report Signed Patient: Lilly Beckham MR#: [id number] : 1985 Acct:[id number] Age/Sex: 38 / F ADM Date: 03/01/24 Loc: Room: Type: [facility] Attending Dr: Saloni Piper PA-C Copies to: [...] Ranjan Orourke M.D.03/01/2024 2:54 PM Dictation Location: [place] [address] Transcribed By: [facility] 03/01/24 1454 Dictated By: Ranjan Orourke II, MD 03/01/24 1448 Signed By: 03/01/24 1454 Normal [facility] MR thoracic spine wo/w conon 03-01-2024 MR thoracic spine wo/w con [facility] [place] [address] [place] [address] MRI Report Signed Patient: Lilly Beckham MR#: [id number] : 1985 Acct:[id number] Age/Sex: 38 / F ADM Date: 03/01/24 Loc: MR Room: Type: [facility] Attending Dr: Saloni Piper PA-C Copies [...] Ranjan Orourke M.D.03/01/2024 3:19 PM Dictation Location: [place] [address] Transcribed By: [facility] 03/01/24 1519 Dictated By: Ranjan Orourke II, MD 03/01/24 1516 Signed By: 03/01/24 1519 Normal [facility] XR pre/post mri xrayon 03-01 XR pre/post mri xray [facility] [address] [place] [address] [place] [address] XRay Report Signed Patient: Lilly Beckham MR#: [id number] : 1985 Acct:[id number] Age/Sex: 38 / F ADM Date: 03/01/24 Loc: MR Room: Type: [facility] Attending Dr: Saloni Piper PA-C Copies to: [...] Ranjan Orourke M.D.03/01/2024 3:31 PM Dictation Location: [place] [address] Transcribed By: [facility] 03/01/24 1531 Dictated By: Ranjan Orourke II, MD 03/01/24 1529 Signed By: 03/01/24 1531 Normal [facility] AMYLASEon 01-19-2023 Amylase [Catalytic activity/Vol] 39 U/L Normal 25-115 [facility] Comment on above: Performed By: #### A MY, LIPA, CMP ####[facility] [address] [place] [id number]. Nicky Troy CBC AUTO DIFFon 01-19-2023 BASO # 0.1 103/ul Normal 0.0-0.1 [facility] Comment on above: Performed By: #### C BC ####[facility] [address] [place] [id number]. Nicky Simmons Basophils/100 WBC (Bld) 0.5 % Normal 0.2-2.0 [facility] Comment on above: Performed By: #### C BC ####[facility] [address] [place] [address]Dr. Nicky Simmons EO # 0.2 103/ul Normal 0.0-0.7 [facility] Comment on above: Performed By: #### C BC ####[facility] [address] [place] [address]Dr. Nicky Simmons Eosinophils/100 WBC (Bld) 1.7 % Normal 0.9-7.0 [facility] Comment on above: Performed By: #### C BC ####[facility] [address] [place] [address]Dr. Dulceuday Simmons Erythrocyte distribution width (RBC) [Ratio] 13.0 % Normal 11.0-15.0 [facility] Comment on above: Performed By: #### C BC ####[facility] [address] [place] [address]Dr. Nicky Simmons Hematocrit (Bld) [Volume fraction] 39.9 % Normal 36.0-48.0 [facility] Comment on above: Performed By: #### C BC ####[facility] [address] [place] [id number]. Nicky Simmons Hemoglobin (Bld) [Mass/Vol] 13.2 g/dL Normal 12.0-16.0 [facility] Comment on above: Performed By: #### C BC ####[facility] [address] [place] [id number]. Nicky Simmons IG # 0.05 10e3/ul Critically high 0.00-0.03 [facility] Comment on above: Performed By: #### C BC ####[facility] [address]qs[address] [place] [id number]. Nicky Simmons IG % 0.5 % Normal 0.0-0.5 [facility] Comment on above: Performed By: #### C BC ####[facility] [address] [place] [id number]. Nicky Simmons LYMPH # 3.1 103/ul Normal 1.2-3.8 [facility] Comment on above: Performed By: #### C BC ####[facility] [address] [place] [address]Dr. Nicky Simmons Lymphocytes/100 WBC (Bld) 28.3 % Normal 20.5-60.0 [facility] Comment on above: Performed By: #### C BC ####[facility] [address] [place], [place] [address]Dr. Nicky Simmons MANUAL DIFF REQ NO Normal [facility] Comment on above: Performed By: #### C BC ####[facility] [address] [place] [phone]. Nicky Simmons MCH (RBC) [Entitic mass] 28.7 pg Normal 26.7-34.0 [facility] Comment on above: Performed By: #### C BC ####[facility] [address] [place] [address]Dr. Nicky Simmons MCHC (RBC) [Mass/Vol] 33.1 g/dL Normal 29.9-35.2 [facility] Comment on above: Performed By: #### C BC ####[facility] [address] [place] [address]Dr. Nicky Simmons MCV (RBC) [Entitic vol] 86.7 fL Normal 81.0-99.0 [facility] Comment on above: Performed By: #### C BC ####[facility] [address] [place], [place] [address]Dr. Nicky Simmons MONO # 0.6 103/ul Normal 0.3-0.8 [facility] Comment on above: Performed By: #### C BC ####[facility] [address] [place] [phone]. Nicky Simmons Monocytes/100 WBC (Bld) 5.6 % Normal 1.7-12.0 [facility] Comment on above: Performed By: #### C BC ####[facility] [address]wt[address] [place] [phone]. Nicky Simmons NEUT # 7.0 103/ul Critically high 1.4-6.5 [facility] Comment on above: Performed By: #### C BC ####[facility] [address]cfuq[address] [place] [phone]. Nicky Simmons Neutrophils/100 WBC (Bld) 63.4 % Normal 43.0-75.0 [facility] Comment on above: Performed By: #### C BC ####[facility] [address] [place] [address]Dr. Nicky Simmons Platelet mean volume (Bld) [Entitic vol] 9.0 fL Critically low 9.5-13.5 [facility] Comment on above: Performed By: #### C BC ####[facility] [address] [place] [address]Dr. Nicky Simmons PLT 358 103/ul Normal 150-450 [facility] Comment on above: Performed By: #### C BC ####[facility] [address] [place] [phone]. Nicky Simmons RBC 4.60 106/ul Normal 4.20-5.40 [facility] Comment on above: Performed By: #### C BC ####[facility] [address] [place] [phone]. Nicky Simmons WBC 11.0 103/ul Normal 4.0-11.0 [facility] Comment on above: Performed By: #### C BC ####[facility] [address]qs[address] [place] [phone]. Nicky Simmons CT ABD/PELV W CONon 01-20-20 [...] PRINCESS DESIR Date: 2023-01-19 13:26 Normal [facility] DRUG SCREEN RAPID (URINE)on 01-19-2023 AMP Negative Normal NEGATIVE [facility] Comment on above: Performed By: #### D RUGRPD ####[facility] [address] [place] [address]Dr. Nicky Simmons BAR Negative Normal NEGATIVE [facility] Comment on above: Performed By: #### D RUGRPD ####[facility] [address] [place] [phone]. Nicky Simmons BUP Negative Normal NEGATIVE [facility] Comment on above: Performed By: #### D RUGRPD ####[facility] [address] [place] [phone]. Nicky Simmons BZO Negative Normal NEGATIVE [facility] Comment on above: Performed By: #### D RUGRPD ####[facility] [address] [place] [phone]. Nicky Simmons DON Negative Normal NEGATIVE [facility] Comment on above: Performed By: #### D RUGRPD ####[facility] [id number] [place] [id number]. Nicky Simmons CUT-OFFS SEE BELOW Normal [facility] Comment on above: Result Comment: [...] 300 ng/mL Performed By: #### D RUGRPD ####[facility] [address] [place], [place] [address]Dr. [facility] DRUG CUT HEADER DRUG CLASS TEST SYSTEM CUT-OFF CONCENTRATIONS ARE FOLLOWS: Normal [facility] Comment on above: Performed By: #### D RUGRPD ####[facility] Cyvrvcou[address] [place], [place] [address]Dr. [facility] mAMP Negative Normal NEGATIVE [facility] Comment on above: Performed By: #### D RUGRPD ####[facility] Fjlwai[address] [place], [place] [address]Dr. uday [facility]uel [facility] MTD Negative Normal NEGATIVE [facility] Comment on above: Performed By: #### D RUGRPD ####[facility] Tirajktqz[address] [place], [place] [address]Dr. uday [facility]uel [facility] OPI Positive Abnormal NEGATIVE [facility] Comment on above: Performed By: #### D RUGRPD ####[facility] [address] [place], [place] [address]Dr. [facility] OXY Negative Normal NEGATIVE [facility] Comment on above: Performed By: #### D RUGRPD ####[facility] [address]ok[address] [place], [place] [address]Dr. [facility] PCP Negative Normal NEGATIVE [facility] Comment on above: Performed By: #### D RUGRPD ####[facility] [address] [place], [place] [id number]. Nicky Simmons PPX Negative Normal NEGATIVE [facility] Comment on above: Performed By: #### D RUGRPD ####[facility] [address] [address]DrBella Simmons TCA Negative Normal NEGATIVE [facility] Comment on above: Performed By: #### D RUGRPD ####[facility] [address] [address]Dr. Nicky Simmons THC Positive Abnormal NEGATIVE [facility] Comment on above: Performed By: #### D RUGRPD ####[facility] [address] [place] [address]Dr. Nicky Simmons ER URINE PROFILEon 3 Bilirubin Ql (U) Negative Normal NEGATIVE [facility] Comment on above: Performed By: #### C BC #### [facility] [address] [place] [address] Dr. Nicky Simmons Clarity (U) CLEAR Normal CLEAR [facility] Comment on above: Performed By: #### C BC #### [facility] [address] [place] [address] Dr. Nicky Simmons Color (U) LT. YELLOW Normal YELLOW [facility] Comment on above: Performed By: #### C BC #### [facility] [address] [place] [address] Dr. Nicky NORTON A micrscopic examination will be performed if indicated. Normal [facility] Comment on above: Performed By: #### C BC #### [facility] [address] [address] [address] Nicky Simmons Glucose Ql (U) Negative Normal NEGATIVE [facility] Comment on above: Performed By: #### C BC #### [facility] [address] [place] [address] Dr. Nicky Simmons Hemoglobin Ql (U) Negative Normal NEGATIVE [facility] Comment on above: Performed By: #### C BC #### [facility] [address] [place] [address] Dr. Nicky Simmons Ketones Ql (U) Negative Normal NEGATIVE [facility] Comment on above: Performed By: #### C BC #### [facility] [address] [address] [address] Nicky Simmons LEUKOCYTES SMALL Abnormal NEGATIVE [facility] Comment on above: Performed By: #### C BC #### [facility] [address] [address] [address] Nicky Simmons Nitrite Ql (U) Negative Normal NEGATIVE [facility] Comment on above: Performed By: #### C BC #### [facility] [address] [place] [address] Dr. Nicky Simmons pH (U) 6.5 [pH] Normal 5-9 [facility] Comment on above: Performed By: #### C BC #### [facility] [address] [place] [address] Dr. Nicky Simmons SPEC GRAVITY <=1.005 Abnormal 1.005-<=1.025 [facility] Comment on above: Performed By: #### C BC #### [facility] [address] [place] [address] Dr. Nicky Simmons UA PROTEIN Negative Normal NEGATIVE/ TRACE [facility] Comment on above: Performed By: #### C BC #### [facility] [address] [place] [address] Dr. Nicky Simmons UR MICRO IND INDICATED Normal [facility] Comment on above: Performed By: #### C BC #### [facility] [address] [place] [address] Dr. Nicky Simmons Urobilinogen Qn (U) 0.2 {Yan'U}/dL Normal 0.2 - 1. 0 [facility] Comment on above: Performed By: #### C BC #### [facility] [address] [place] [address] Dr. Nicky Simmons LIPASEon 01-19-2023 Lipase [Catalytic activity/Vol] 46.0 U/L Critically low 73.0-393.0 [facility] Comment on above: Performed By: #### A MY, LIPA, CMP ####[facility] [address] [place] [address]Dr. Yilan Simmons PROF 14(COMP METB)on 023 Albumin [Mass/Vol] 3.1 g/dL Critically low 3.4-5.0 [facility] Comment on above: Performed By: #### A JUANI LIPA, CMP ####[facility] [address] [place] [address]Dr. Nicky Simmons Albumin/Globulin [Mass ratio] 0.8 {ratio} Normal [facility] Comment on above: Performed By: #### A MY LIPA, CMP ####[facility] [address] [place] [address]Dr. Nicky Simmons ALP [Catalytic activity/Vol] 102 U/L Normal 46-116 [facility] Comment on above: Performed By: #### A MY LIPA, CMP ####[facility] R[address]jjakg[address] [place], [place] [address]Dr. Nicky Simmons ALT [Catalytic activity/Vol] 64 U/L Critically high 14-59 [facility] Comment on above: Performed By: #### A JUANI LIPA, CMP ####[facility] [address] [place], [place] [address]Dr. Nicky Simmons Anion gap [Moles/Vol] 15.6 mmol/L Normal [facility] Comment on above: Performed By: #### A MY, LIPA, CMP ####[facility] [address] [place], [place] [address]Dr. Nicky Simmons AST [Catalytic activity/Vol] 28 U/L Normal 15-37 [facility] Comment on above: Performed By: #### A MY, LIPA, CMP ####[facility] [address] [place], [place] [address]Dr. Nicky Simmons Bilirubin [Mass/Vol] 0.4 mg/dL Normal 0.2-1.0 [facility] Comment on above: Performed By: #### A MY, LIPA, CMP ####[facility] S[address]ngof[address] [place], [place] [address]Dr. Nicky Simmons Calcium [Mass/Vol] 8.9 mg/dL Normal 8.5-10.1 [facility] Comment on above: Performed By: #### A JUANI LIPA, CMP ####[facility] [address] [place] [address]Dr. Nicky Simmons Chloride [Moles/Vol] 105 mmol/L Normal 98-107 [facility] Comment on above: Performed By: #### A JUANI LIPA, CMP ####[facility] [address] [place] [address]Dr. Nicky Simmons CO2 [Moles/Vol] 23.0 mmol/L Normal 21.0-32.0 The [facility] Comment on above: Performed By: #### A JUANI LIPA, CMP ####[facility] [address]of[address] [place], [place] [address]Dr. Nicky Troy Creatinine [Mass/Vol] 0.71 mg/dL Normal 0.55-1.02 [facility] Comment on above: Performed By: #### A JUANI LIPA, CMP ####[facility] [address] [place], [place] [address]Dr. Nicky Simmons EGFR-AF SURINAMESE >60 Normal >=60 The [facility] Comment on above: Performed By: #### A JUANI LIPA, CMP ####[facility] [address]ew[address] [place], [place] [address]Dr. Nicky Simmons EGFR-NON AF SURINAMESE >60 Normal >=60 [facility] Comment on above: Performed By: #### A JUANI LIPA, CMP ####[facility] Y[address]psq[address] [place], [place] [address]Dr. Nicky Simmons Globulin (S) [Mass/Vol] 4.0 g/dL Normal [facility] Comment on above: Performed By: #### A JUANI LIPA, CMP ####[facility] [address] [place], [place] [address]Dr. Nicky Troy Glucose [Mass/Vol] 99 mg/dL Normal 74-106 [facility] Comment on above: Performed By: #### A JUANI LIPA, CMP ####[facility] [address] [place], [place] [address]Dr. Nicky Simmons Potassium [Moles/Vol] 3.6 mmol/L Normal 3.5-5.1 [facility] Comment on above: Performed By: #### A ROMÁN GLORIA, CMP ####[facility] [address] [place] [address]Dr. Nicky Simmons Protein [Mass/Vol] 7.1 g/dL Normal 6.4-8.2 [facility] Comment on above: Performed By: #### A ROMÁN GLORIA, CMP ####[facility] [address] [place] [address]Dr. Nicky Simmons Sodium [Moles/Vol] 140 mmol/L Normal 136-145 [facility] Comment on above: Performed By: #### A ROMÁN GLORIA, CMP ####[facility] [address] [place], [place] [address]Dr. Nicky Simmons Urea nitrogen [Mass/Vol] 8.0 mg/dL Normal 7.0-18.0 [facility] Comment on above: Performed By: #### A ROMÁN GLORIA, CMP ####[facility] [address] [place] [address]Dr. Nicky Simmons Urea nitrogen/Creatinine [Mass ratio] 11.3 mg/mg Normal [facility] Comment on above: Performed By: #### A ROMÁN GLORIA, CMP ####[facility] [address] [place] [address]Dr. Nicky Simmons URINE MICROSCOPIC ONLYon BACTERIA TRACE Abnormal NONE SEEN [facility] Comment on above: Performed By: #### C BC #### [facility] [address] [place] [address] Dr. Nicky Simmons Bacteria identified Cx Nom (U) INDICATED Normal [facility] Comment on above: Performed By: #### C BC #### [facility] [address] [place] [address] Dr. Nicky Simmons CAST NONE SEEN Normal NONE SEEN [facility] Comment on above: Performed By: #### C BC #### [facility] [address] [place] [address] Dr. Nicky Simmons Crystals LM Nom (Urine sed) NONE SEEN Normal NONE SEEN [facility] Comment on above: Performed By: #### C BC #### [facility] [address] [place] [address] Dr. Nicky Simmons Epithelial cells LM Ql (Urine sed) FEW Abnormal NONE SEEN /RARE [facility] Comment on above: Performed By: #### C BC #### [facility] [address] [place] [address] Dr. Nicky Simmons MUCOUS NONE SEEN Normal NONE SEEN [facility] Comment on above: Performed By: #### C BC #### [facility] [address] [place] [address] Dr. Nicky Simmons RBC 0-2 Normal 0-2 [facility] Comment on above: Performed By: #### C BC #### [facility] [address] [place] [address] Dr. Nicky Simmons WBC 2-5 Abnormal NONE SEEN [facility] Comment on above: Performed By: #### C BC #### [facility] [address] [place] [address] Dr. Nicky Simmons XR CHEST 1 Von [...] SREE MCCLENDON Date: 2023-01-11 21:21 Normal [facility] CBC AUTO DIFFon 12-18-2022 BASO # 0.0 103/ul Normal 0.0-0.1 [facility] Comment on above: Performed By: #### C BC #### [facility] [address] [place] [address] Dr. Nicky Simmons Basophils/100 WBC (Bld) 0.3 % Normal 0.2-2.0 [facility] Comment on above: Performed By: #### C BC #### [facility] [address] [place] [address] Dr. Nicky Simmons EO # 0.2 103/ul Normal 0.0-0.7 [facility] Comment on above: Performed By: #### C BC #### [facility] [address] [place] [address] Dr. Nicky Simmons Eosinophils/100 WBC (Bld) 1.4 % Normal 0.9-7.0 [facility] Comment on above: Performed By: #### C BC #### [facility] [address] [place] [address] Dr. Nicky Simmons Erythrocyte distribution width (RBC) [Ratio] 13.0 % Normal 11.0-15.0 [facility] Comment on above: Performed By: #### C BC #### [facility] [address] [place] [address] Dr. Nicky Simmons Hematocrit (Bld) [Volume fraction] 40.3 % Normal 36.0-48.0 [facility] Comment on above: Performed By: #### C BC #### [facility] [address] [place] [address] Dr. Nicky Simmons Hemoglobin (Bld) [Mass/Vol] 13.5 g/dL Normal 12.0-16.0 [facility] Comment on above: Performed By: #### C BC #### [facility] [address] [place] [address] Dr. Nicky Simmons IG # 0.03 10e3/ul Normal 0.00-0.03 [facility] Comment on above: Performed By: #### C BC #### [facility] [address] [place] [address] Dr. Nicky Simmons IG % 0.3 % Normal 0.0-0.5 [facility] Comment on above: Performed By: #### C BC #### [facility] [address] [place] [address] Dr. Nicky Simmons LYMPH # 3.3 103/ul Normal 1.2-3.8 [facility] Comment on above: Performed By: #### C BC #### [facility] [address] [place] [address] Dr. Nicky Simmons Lymphocytes/100 WBC (Bld) 27.9 % Normal 20.5-60.0 [facility] Comment on above: Performed By: #### C BC #### [facility] [address] [place] [address] Dr. Nicky Simmons MANUAL DIFF REQ NO Normal [facility] Comment on above: Performed By: #### C BC #### [facility] [address] [place] [address] Dr. Nicky Simmons MCH (RBC) [Entitic mass] 29.3 pg Normal 26.7-34.0 [facility] Comment on above: Performed By: #### C BC #### [facility] [address] [place] [address] Dr. Nicky Simmons MCHC (RBC) [Mass/Vol] 33.5 g/dL Normal 29.9-35.2 [facility] Comment on above: Performed By: #### C BC #### [facility] [address] [place] [address] Dr. Nicky Simmons MCV (RBC) [Entitic vol] 87.4 fL Normal 81.0-99.0 [facility] Comment on above: Performed By: #### C BC #### [facility] [address] [place] [address] Dr. Nicky Simmons MONO # 0.7 103/ul Normal 0.3-0.8 [facility] Comment on above: Performed By: #### C BC #### [facility] [address] [place] [address] Dr. Nicky Simmons Monocytes/100 WBC (Bld) 6.0 % Normal 1.7-12.0 [facility] Comment on above: Performed By: #### C BC #### [facility] [address] [place] [address] Dr. Nicky Simmons NEUT # 7.6 103/ul Critically high 1.4-6.5 [facility] Comment on above: Performed By: #### C BC #### [facility] [address] [place] [address] Dr. Nicky Simmons Neutrophils/100 WBC (Bld) 64.1 % Normal 43.0-75.0 [facility] Comment on above: Performed By: #### C BC #### [facility] [address] [address] [address] Nicyk Simmons Platelet mean volume (Bld) [Entitic vol] 9.1 fL Critically low 9.5-13.5 [facility] Comment on above: Performed By: #### C BC #### [facility] [address] [address] [address] Nicky Simmons PLT 381 103/ul Normal 150-450 [facility] Comment on above: Performed By: #### C BC #### [facility] [address] [place] [address] Dr. Nicky Simmons RBC 4.61 106/ul Normal 4.20-5.40 [facility] Comment on above: Performed By: #### C BC #### [facility] [address] [place] [address] Dr. Nicky Simmons WBC 11.9 103/ul Critically high 4.0-11.0 [facility] Comment on above: Performed By: #### C BC #### [facility] [address] [place] [address] Dr. Nicky Simmons PROTIMEon 12-18-2022 INR Coag (PPP) [Relative time] {INR} Normal [facility] Comment on above: Performed By: #### I NFLUAB #### [facility] [address] [place] [address] Dr. Nicky Simmons INR GUIDELINES SEE BELOW Normal [facility] Comment on above: Result Comment: LEOPOLDO RED INR: 2.0 - 3.0 CONDITIONS NOT LISTED BELOW 2.5 - 3.5 FOR PROSTHETIC HEART VALVE REPLACEMENT 2.5 - 3.5 RECURRENT THROMBOSIS Performed By: #### I NFLUAB #### [facility] [address] [place] [address] Dr. Nicky Simmons PT Coag (PPP) [Time] 9.7 s Normal 9.0-11.6 [facility] Comment on above: Performed By: #### I NFLUAB #### [facility] [address] [place] [address] Dr. Nicky Simmons PTTon 12-18-2022 aPTT Coag (Bld) [Time] 27.9 s Normal 22.3-36.2 [facility] Comment on above: Performed By: #### I NFLUAB #### [facility] [address] [place] [address] Dr. Nicky Simmons Covid-19 PCR (CVDTB)on 11-03 SARS-CoV-2 (COVID-19) RNA GOKUL+probe Ql (Unsp spec) Not detected Normal NOT DETECTED [facility] Comment on above: Result Comment: [...] for this test is supported by the [place] of Health and Human Service's declaration that [...] used). Performed By: #### C VDTBH #### [facility] [address] [place] [address] Dr. Nicky Simomns GROUP A STREP CULTUREon 11-03 S. pyogenes Ag Ql (Unsp spec) Culture Observations: NEGATIVE FOR GROUP A STREPTOCOCCUS. Normal [facility] Comment on above: Performed By: #### C BC #### [facility] [address] [place] [address] Dr. Nicky Simmons INFLUENZA A AND B AGon 11-13 INFLUENZA A AG Negative Normal NEGATIVE SEE COMMENT [facility] Comment on above: Performed By: #### I NFLUAB #### [facility] [address] [place] [address] Dr. Nicky Simmons INFLUENZA B AG Negative Normal NEGATIVE SEE COMMENT [facility] Comment on above: Performed By: #### I NFLUAB #### [facility] [address] [place] [address] Dr. Nicky Simmons STREPT SCREENon 11-13-2022 STREP SCREEN A Negative Normal NEGATIVE [facility] Comment on above: Performed By: #### C BC #### [facility] [address] [place] [address] Dr. Nicky Simmons GROUP A STREP CULTUREon 10-07 S. pyogenes Ag Ql (Unsp spec) Culture Observations: NEGATIVE FOR GROUP A STREPTOCOCCUS. Normal [facility] Comment on above: Performed By: #### C BC #### [facility] [address] [place] [address] Dr. Nicky Simmons STREPT SCREENon 11-02-2022 STREP SCREEN A Negative Normal NEGATIVE [facility] Comment on above: Performed By: #### C BC #### [facility] [address] [place] [address] Dr. Nicky Simmons CBC AUTO DIFFon 10-22-2022 BASO # 0.0 103/ul Normal 0.0-0.1 [facility] Comment on above: Performed By: #### C BC #### [facility] [address] [place] [address] Dr. Nicky Simmons Basophils/100 WBC (Bld) 0.3 % Normal 0.2-2.0 [facility] Comment on above: Performed By: #### C BC #### [facility] [address] [place] [address] Dr. Nicky Simmons EO # 0.2 103/ul Normal 0.0-0.7 [facility] Comment on above: Performed By: #### C BC #### [facility] [address] [place] [address] Dr. Nicky Simmons Eosinophils/100 WBC (Bld) 1.2 % Normal 0.9-7.0 [facility] Comment on above: Performed By: #### C BC #### [facility] [address] [place] [address] Dr. Nicky Simmons Erythrocyte distribution width (RBC) [Ratio] 12.9 % Normal 11.0-15.0 [facility] Comment on above: Performed By: #### C BC #### [facility] [address] [place] [address] Dr. Nicky Simmons Hematocrit (Bld) [Volume fraction] 45.3 % Normal 36.0-48.0 [facility] Comment on above: Performed By: #### C BC #### [facility] [address] [place] [address] Dr. Nicky Simmons Hemoglobin (Bld) [Mass/Vol] 15.1 g/dL Normal 12.0-16.0 [facility] Comment on above: Performed By: #### C BC #### [facility] [address] [place] [address] Dr. Nicky Simmons IG # 0.07 10e3/ul Critically high 0.00-0.03 [facility] Comment on above: Performed By: #### C BC #### [facility] [address] [place] [address] Dr. Nicky Simmons IG % 0.4 % Normal 0.0-0.5 [facility] Comment on above: Performed By: #### C BC #### [facility] [address] [place] [address] Dr. Nicky Simmons LYMPH # 1.1 103/ul Critically low 1.2-3.8 [facility] Comment on above: Performed By: #### C BC #### [facility] [address] [place] [address] Dr. Nicky Simmons Lymphocytes/100 WBC (Bld) 7.1 % Critically low 20.5-60.0 [facility] Comment on above: Performed By: #### C BC #### [facility] [address] [place] [address] Dr. Nicky Simmons MANUAL DIFF REQ NO Normal [facility] Comment on above: Performed By: #### C BC #### [facility] [address] [place] [address] Dr. Nicky Simmons MCH (RBC) [Entitic mass] 28.8 pg Normal 26.7-34.0 [facility] Comment on above: Performed By: #### C BC #### [facility] [address] [place] [address] Dr. Nicky Simmons MCHC (RBC) [Mass/Vol] 33.3 g/dL Normal 29.9-35.2 [facility] Comment on above: Performed By: #### C BC #### [facility] [address] [address] [address] Nicky Simmons MCV (RBC) [Entitic vol] 86.3 fL Normal 81.0-99.0 [facility] Comment on above: Performed By: #### C BC #### [facility] [address] [place] [address] Dr. Nicky Simmons MONO # 0.4 103/ul Normal 0.3-0.8 [facility] Comment on above: Performed By: #### C BC #### [facility] [address] [place] [address] Dr. Nicky Simmons Monocytes/100 WBC (Bld) 2.6 % Normal 1.7-12.0 [facility] Comment on above: Performed By: #### C BC #### [facility] [address] [place] [address] Dr. Nicky Simmons NEUT # 14.0 103/ul Critically high 1.4-6.5 The [facility] Comment on above: Performed By: #### C BC #### [facility] [address] [place] [address] Dr. Nicky Simmons Neutrophils/100 WBC (Bld) 88.4 % Critically high 43.0-75.0 [facility] Comment on above: Performed By: #### C BC #### [facility] [address] [place] [address] Dr. Nicky Simmons Platelet mean volume (Bld) [Entitic vol] 9.4 fL Critically low 9.5-13.5 [facility] Comment on above: Performed By: #### C BC #### [facility] [address] [place] [address] Dr. Nicky Simmons PLT 399 103/ul Normal 150-450 [facility] Comment on above: Performed By: #### C BC #### [facility] [address] [address] [address] Nicky Simmons RBC 5.25 106/ul Normal 4.20-5.40 [facility] Comment on above: Performed By: #### C BC #### [facility] [id number] Nicky Simmons WBC 15.9 103/ul Critically high 4.0-11.0 [facility] Comment on above: Performed By: #### C BC #### [facility] [id number] Nicky Simmons CT ABD/PELVIS WO CONon [...] JUDY CONKLIN Date: 2022-10-22 00:08 Normal [facility] URINE PROFILEon 3 Bilirubin Ql (U) SMALL Abnormal NEGATIVE The [facility] Comment on above: Performed By: #### E RUR, PREGU ####[facility] Gujnbsymai[address] [place], [place] [address]Dr. Nicky Simmons Clarity (U) CLEAR Normal CLEAR [facility] Comment on above: Performed By: #### E RUR, PREGU ####[facility] Btamannj[address] [place], [place] [address]Dr. Nicky Simmons Color (U) DK. YELLOW Normal YELLOW [facility] Comment on above: Performed By: #### E RUR, PREGU ####[facility] Zjvumtmlwt[address] [place], [place] [address]Dr. Nicky LOVINGAHD A micrscopic examination will be performed if indicated. Normal [facility] Comment on above: Performed By: #### E RUR, PREGU ####[facility] U[address]rwrstt[address] [place], [place] [address]Dr. Nicky Simmons Glucose Ql (U) Negative Normal NEGATIVE The [facility] Comment on above: Performed By: #### E RUR, PREGU ####[facility] Umlwvrhalu[address] [place], [place] [address]Dr. Nicky Simmons Hemoglobin Ql (U) Negative Normal NEGATIVE The [facility] Comment on above: Performed By: #### E RUR, PREGU ####[facility] Kmuafedpnr244[address] [place], [place] [address]Dr. Nicky Simmons Ketones Ql (U) 15 mg/dl Abnormal NEGATIVE The [facility] Comment on above: Performed By: #### E RUR, PREGU ####[facility] Dkogaxfczm[address] [place], [place] [address]Dr. Nicky Simmons LEUKOCYTES Negative Normal NEGATIVE [facility] Comment on above: Performed By: #### E RUR, PREGU ####[facility] [address] [address]Dr. Nicky Simmons Nitrite Ql (U) Negative Normal NEGATIVE The [facility] Comment on above: Performed By: #### E RUR, PREGU ####[facility] [address]htwbt[address] [place], [place] [address]Dr. Nicky Simmons pH (U) 5.0 [pH] Normal 5-9 [facility] Comment on above: Performed By: #### E RUR, PREGU ####[facility] Fxcqiswkta[address] [place], [place] [address]Dr. Nicky Simmons SPEC GRAVITY >=1.030 Abnormal 1.005-<=1.025 The [facility] Comment on above: Performed By: #### Ashley JONES, PREGU ####[facility] Cyuyoea[address] [place], [place] [address]Dr. Nicky Simmons UA PROTEIN TRACE Normal NEGATIVE/ TRACE [facility] Comment on above: Performed By: #### Ashley JONES, PREGU ####[facility] Qvnhnnipte[address] [place], [place] [address]Dr. Nicky Simmons UR MICRO IND NOT INDICATED Normal The [facility] Comment on above: Performed By: #### Ashley JONES, PREGU ####[facility] Sigdrydrml[address] [place], [place] [address]Dr. Nicky Simmons Urobilinogen Qn (U) 0.2 {Yan'U}/dL Normal 0.2 - 1. 0 [facility] Comment on above: Performed By: #### E RUR, PREGU ####[facility] Kpjhrhszbm[address] [place], [place] [address]Dr. Nicky Simmons LIPASEon 10-22-2022 Lipase [Catalytic activity/Vol] 56.0 U/L Critically low 73.0-393.0 [facility] Comment on above: Performed By: #### L IPA ####[facility] Vcwlcgqsyu[address] [place], [place] [address]Dr. Nicky Simmons PREG HCG QUALon 10-22-2022 , QUAL Negative Normal NEGATIVE The [facility] Comment on above: Performed By: #### P REG ####[facility] [address] [place], [place] [address]Dr. Nicky Simmons URon 10-22-2022 , QUAL Negative Normal NEGATIVE [facility] Comment on above: Performed By: #### E RUR, PREGU ####[facility] [address] [place], [place] [address]FwDr. Nicky Simmons PROF 14(COMP METB)on 023 Albumin [Mass/Vol] 3.7 g/dL Normal 3.4-5.0 [facility] Comment on above: Performed By: #### I NFLUAB #### [facility] [address] [address] [address] Nicky Simmons Albumin/Globulin [Mass ratio] 0.9 {ratio} Normal [facility] Comment on above: Performed By: #### I NFLUAB #### [facility] [address] [address] [address] Nikcy Simmons ALP [Catalytic activity/Vol] 128 U/L Critically high 46-116 [facility] Comment on above: Performed By: #### I NFLUAB #### [facility] [address] [address] [address] Nicky Simmons ALT [Catalytic activity/Vol] 38 U/L Normal 14-59 [facility] Comment on above: Performed By: #### I NFLUAB #### [facility] [address] [address] [address] Nicky Simmons Anion gap [Moles/Vol] 17.1 mmol/L Normal [facility] Comment on above: Performed By: #### I NFLUAB #### [facility] [address] [address] [address] Nicky Simmons AST [Catalytic activity/Vol] 27 U/L Normal 15-37 [facility] Comment on above: Performed By: #### I NFLUAB #### [facility] [address] [address] [address] Nicky Simmons Bilirubin [Mass/Vol] 0.5 mg/dL Normal 0.2-1.0 [facility] Comment on above: Performed By: #### I NFLUAB #### [facility] [address] [place] [address] Dr. Nicky Simmons Calcium [Mass/Vol] 8.9 mg/dL Normal 8.5-10.1 [facility] Comment on above: Performed By: #### I NFLUAB #### [facility] [address] [address] [address] Nicky Simmons Chloride [Moles/Vol] 102 mmol/L Normal 98-107 [facility] Comment on above: Performed By: #### I NFLUAB #### [facility] [address] [place] [address] Dr. Nicky Simmons CO2 [Moles/Vol] 21.9 mmol/L Normal 21.0-32.0 [facility] Comment on above: Performed By: #### I NFLUAB #### [facility] [address] [place] [address] Dr. Nicky Simmons Creatinine [Mass/Vol] 0.77 mg/dL Normal 0.55-1.02 [facility] Comment on above: Performed By: #### I NFLUAB #### [facility] [address] [place] [address] Dr. Nicky Simmons EGFR-AF SURINAMESE >60 Normal >=60 [facility] Comment on above: Performed By: #### I NFLUAB #### [facility] [address] [place] [address] Dr. Nicky Simmons EGFR-NON AF SURINAMESE >60 Normal >=60 [facility] Comment on above: Performed By: #### I NFLUAB #### [facility] [address] [place] [address] Dr. Nicky Simmons Globulin (S) [Mass/Vol] 3.9 g/dL Normal [facility] Comment on above: Performed By: #### I NFLUAB #### [facility] [address] [place] [address] Dr. Nicky Simmons Glucose [Mass/Vol] 105 mg/dL Normal 74-106 [facility] Comment on above: Performed By: #### I NFLUAB #### [facility] [address] [address] [address] Nicky Simmons Potassium [Moles/Vol] 4.0 mmol/L Normal 3.5-5.1 [facility] Comment on above: Performed By: #### I NFLUAB #### [facility] [address] [address] [address] Nicky Simmons Protein [Mass/Vol] 7.6 g/dL Normal 6.4-8.2 [facility] Comment on above: Performed By: #### I NFLUAB #### [facility] [address] [address] [address] Nicky Simmons Sodium [Moles/Vol] 137 mmol/L Normal 136-145 [facility] Comment on above: Performed By: #### I NFLUAB #### [facility] [address] [address] [address] Nicky Simmons Urea nitrogen [Mass/Vol] 12.0 mg/dL Normal 7.0-18.0 [facility] Comment on above: Performed By: #### I NFLUAB #### [facility] [address] [address] [address] Nicky Simmons Urea nitrogen/Creatinine [Mass ratio] 15.6 mg/mg Normal [facility] Comment on above: Performed By: #### I NFLUAB #### [facility] [address] [address] [address] Nicky Simmons CBC AUTO DIFFon 09-06-2022 BASO # 0.1 103/ul Normal 0.0-0.1 [facility] Comment on above: Performed By: #### C BC ####[facility] [address] [address]Dr. Nicky Simmons Basophils/100 WBC (Bld) 0.5 % Normal 0.2-2.0 [facility] Comment on above: Performed By: #### C BC ####[facility] [address] [address]Dr. Nicky Simmons EO # 0.3 103/ul Normal 0.0-0.7 [facility] Comment on above: Performed By: #### C BC ####[facility] [address] [address]Dr. Nicky Simmons Eosinophils/100 WBC (Bld) 2.4 % Normal 0.9-7.0 [facility] Comment on above: Performed By: #### C BC ####[facility] [address] [place], [place] [address]Dr. Nicky Simmons Erythrocyte distribution width (RBC) [Ratio] 12.7 % Normal 11.0-15.0 [facility] Comment on above: Performed By: #### C BC ####[facility] Kw[address]yjbjg[address] [place], [place] [address]Dr. Nicky Simmons Hematocrit (Bld) [Volume fraction] 37.5 % Normal 36.0-48.0 [facility] Comment on above: Performed By: #### C BC ####[facility] [address]do[address] [place], [place] [address]Dr. Nicky Simmons Hemoglobin (Bld) [Mass/Vol] 12.6 g/dL Normal 12.0-16.0 [facility] Comment on above: Performed By: #### C BC ####[facility] [address]ktprce[address] [place], [place] [address]Dr. Nicky Simmons IG # 0.05 10e3/ul Critically high 0.00-0.03 [facility] Comment on above: Performed By: #### C BC ####[facility] [address]nuzfu[address] [place], [place] [address]Dr. Nicyk Troy IG % 0.4 % Normal 0.0-0.5 [facility] Comment on above: Performed By: #### C BC ####[facility] Jxdowipkxe[address] [place], [place] [address]Dr. Nicky Simmons LYMPH # 2.9 103/ul Normal 1.2-3.8 [facility] Comment on above: Performed By: #### C BC ####[facility] Z[address]lnkccrx[address] [place], [place] [address]Dr. Nicky Simmons Lymphocytes/100 WBC (Bld) 25.2 % Normal 20.5-60.0 [facility] Comment on above: Performed By: #### C BC ####[facility] [address] [address]DrBella Simmons MANUAL DIFF REQ NO Normal The [facility] Comment on above: Performed By: #### C BC ####[facility] [address] [address]Dr. Nicky Simmons MCH (RBC) [Entitic mass] 29.4 pg Normal 26.7-34.0 [facility] Comment on above: Performed By: #### C BC ####[facility] [address] [address]Dr. Nicky Simmons MCHC (RBC) [Mass/Vol] 33.6 g/dL Normal 29.9-35.2 [facility] Comment on above: Performed By: #### C BC ####[facility] Qhtshscmpn[address] [place], [place] [address]Dr. Nicky Simmons MCV (RBC) [Entitic vol] 87.4 fL Normal 81.0-99.0 [facility] Comment on above: Performed By: #### C BC ####[facility] [address] [place], [place] [address]DrBella Simmons MONO # 0.7 103/ul Normal 0.3-0.8 [facility] Comment on above: Performed By: #### C BC ####[facility] Mnx[address] [place], [place] [address]DrBella Simmons Monocytes/100 WBC (Bld) 6.4 % Normal 1.7-12.0 [facility] Comment on above: Performed By: #### C BC ####[facility] J[address]ms[address]uky[address] [place], [place] [address]DrBella Simmons NEUT # 7.5 103/ul Critically high 1.4-6.5 The [facility] Comment on above: Performed By: #### C BC ####[facility] [address]tmqi[address] [place], [place] [address]DrBella Simmons Neutrophils/100 WBC (Bld) 65.1 % Normal 43.0-75.0 [facility] Comment on above: Performed By: #### C BC ####[facility] [address] [id number]. Nicky Simmons Platelet mean volume (Bld) [Entitic vol] 9.1 fL Critically low 9.5-13.5 [facility] Comment on above: Performed By: #### C BC ####[facility] [address] [address]Dr. Nicky Simmons PLT 380 103/ul Normal 150-450 [facility] Comment on above: Performed By: #### C BC ####[facility] [address] [address]Dr. Nicky Simmons RBC 4.29 106/ul Normal 4.20-5.40 [facility] Comment on above: Performed By: #### C BC ####[facility] [address] [address]Dr. Nicky Simmons WBC 11.5 103/ul Critically high 4.0-11.0 The [facility] Comment on above: Performed By: #### C BC ####[facility] [address] [id number]. Nicky Simmons CTA CHEST WO W CONon [...] MUKUND MASSEY Date: 2022-09-06 19:34 Normal [facility]on SARS-CoV-2 (COVID-19) RNA GOKUL+probe Ql (Unsp spec) Not detected Normal NOT DETECTED [facility] Comment on above: Result Comment: This test is not yet approved or cleared by the [place] FDA. When there are no FDA-approved or cleared tests available, and other criteria are met, FDA can make tests available under an emergency access mechanism called an Emergency Use Authorization (EUA). The EUA for this test is supported by the [place] of Health and Human Service's (HHS's) declaration [...] with SARS-CoV-2. Performed By: #### C VDTBH ####[facility] [address] [place], [place] [address]Ge. Nicky Simmons D-DIMERon 09-06-2022 D-DIMER 0.62 mg/L FEU Critically high <=0.59 [facility] Comment on above: Performed By: #### D DIM ####[facility] [address] [place], [place] [address]Qh. Nicky Simmons D-DIMER COMMENTS SEE BELOW Normal The [facility] Comment on above: Result [...] generalized hospitalization. Performed By: #### D DIM ####[facility] [address] [address]Dr. Nicky Simmons INFLUENZA A AND B AGon 09-06 [facility] SEE BELOW Normal [facility] Comment on above: Result Comment: Nega tive for Flu A protein angiten. Infection due to Flu A cannot be ruled out. Flu A angiten in the sample may be below the detection limit of the test. Performed By: #### C BC #### [facility] [address] [place] [address] Dr. Nicky [facility] BEL[facility] Normal [facility] Comment on above: Result Comment: Nega tive for Flu B protein antigen. Infection due to Flu B cannot be ruled out. Flu B antigen in the sample may be below the detection limit of the test. Performed By: #### C BC #### [facility] [address] [place] [address] Dr. Nicky Simmons INFLUENZA A AG Negative Normal NEGATIVE SEE COMMENT [facility] Comment on above: Performed By: #### C BC #### [facility] [address] [place] [address] Dr. Nicky Simmons INFLUENZA B AG Negative Normal NEGATIVE SEE COMMENT [facility] Comment on above: Performed By: #### C BC #### [facility] [address] [place] [address] Dr. Nicky Simmons PROF CHEM 8 (BAS METB)on Anion gap [Moles/Vol] 12.7 mmol/L Normal [facility] Comment on above: Performed By: #### I NFLUAB #### [facility] [address] [place] [address] Dr. Nicky Simmons Calcium [Mass/Vol] 8.6 mg/dL Normal 8.5-10.1 [facility] Comment on above: Performed By: #### I NFLUAB #### [facility] [address] [address] [address] Nicky Simmons Chloride [Moles/Vol] 103 mmol/L Normal 98-107 [facility] Comment on above: Performed By: #### I NFLUAB #### [facility] [address] [address] [address] Nicky Simmons CO2 [Moles/Vol] 24.9 mmol/L Normal 21.0-32.0 The [facility] Comment on above: Performed By: #### I NFLUAB #### [facility] [address] [address] [address] Nicky Simmons Creatinine [Mass/Vol] 0.86 mg/dL Normal 0.55-1.02 [facility] Comment on above: Performed By: #### I NFLUAB #### [facility] [address] [address] [address] Nicky Simmons EGFR-AF SURINAMESE >60 Normal >=60 The [facility] Comment on above: Performed By: #### I NFLUAB #### [facility] [address] [address] [address] Nicky Simmons EGFR-NON AF SURINAMESE >60 Normal >=60 [facility] Comment on above: Performed By: #### I NFLUAB #### [facility] [address] [address] [address] Nicky Simmons Glucose [Mass/Vol] 113 mg/dL Critically high 74-106 [facility] Comment on above: Performed By: #### I NFLUAB #### [facility] [address] [address] [address] Nicky Simmons Potassium [Moles/Vol] 3.6 mmol/L Normal 3.5-5.1 [facility] Comment on above: Performed By: #### I NFLUAB #### [facility] [address] [address] [address] Nicky Simmons Sodium [Moles/Vol] 137 mmol/L Normal 136-145 [facility] Comment on above: Performed By: #### I NFLUAB #### [facility] [address] [address] [address] Nicky Simmons Urea nitrogen [Mass/Vol] 9.0 mg/dL Normal 7.0-18.0 [facility] Comment on above: Performed By: #### I NFLUAB #### [facility] [address] [address] [address] Nicky Simmons Urea nitrogen/Creatinine [Mass ratio] 10.5 mg/mg Normal [facility] Comment on above: Performed By: #### I NFLUAB #### [facility] [address] [address] [address] Nicky Simmons XR CHEST 1 Von 09-06-2022 XR CHEST 1 V CHEST X-RAY, 1 VIEW HISTORY: Cough. COMPARISON: 05/17/2022. FINDINGS: The heart, angel, and mediastinum are unremarkable. The lungs are grossly clear. There are no pleural effusions. There is no pneumothorax. IMPRESSION: No evidence of acute cardiopulmonary disease. Electronically authenticated by: ESTHER MARY Date: 2022-09-06 18:22 Normal [facility] COVID-19 Positive/NegativeOr dered By: Christopher Mendoza on 06-28-2022 SARS-CoV-2 (COVID-19) N gene GOKUL+probe Ql (Resp) Negative Negative [facility] Comment on above: Testing for SARS-CoV -2 by RT-PCRThis test was developed and its performance characteristics determined by [employer] ([place]) and validated at the [facility] [...] NEGATIVE FOR GROUP A STREPTOCOCCUS. Normal [facility] Comment on above: Performed By: #### S SCRN, GRASTCX #### [facility] [address] [address] [address] Nicky Simmons INFLUENZA A AND B AGon 05-17 INFLUENZA A AG Negative Normal NEGATIVE SEE COMMENT [facility] Comment on above: Performed By: #### C BC #### [facility] [address] [address] [address] Nicky Simmons INFLUENZA B AG Negative Normal NEGATIVE SEE COMMENT [facility] Comment on above: Performed By: #### C BC #### [facility] [address] [place] [address] Dr. Nicky Simmons INTERNAL CONTROLS Within Normal Limits Normal Wi thin Normal Limits [facility] Comment on above: Performed By: #### C BC #### [facility] [address] [address] [address] Nicky Simmons RESPIRATORY PANEL PLUSon Adenovirus Not detected Normal NOT DETECTED [facility] Comment on above: Performed By: #### R SPLUS ####[facility] [address] [place], [place] [address]Dr. Nicky Simmons B. Parapertusis Not detected Normal NOT DETECTED [facility] Comment on above: Performed By: #### R SPLUS ####[facility] [address] [address]Dr. Nicky Simmons B. Pertussis Not detected Normal NOT DETECTED The [facility] Comment on above: Performed By: #### R SPLUS ####[facility] [address] [address]Dr. Nicky Simmons Chlamydia Pneumoniae Not detected Normal NOT DETECTED [facility] Comment on above: Performed By: #### R SPLUS ####[facility] [address] [address]Dr. Nicky Simmons Coronavirus 229E Not detected Normal NOT DETECTED [facility] Comment on above: Performed By: #### R SPLUS ####[facility] [address] [address]Dr. Nicky Simmons Coronavirus HKU1 Not detected Normal NOT DETECTED [facility] Comment on above: Performed By: #### R SPLUS ####[facility] [address] [address]Dr. Nicky Simmons Coronavirus NL63 Not detected Normal NOT DETECTED [facility] Comment on above: Performed By: #### R SPLUS ####[facility] [address] [place], [place] [address]Dr. Nicky Simmons Coronavirus OC43 Not detected Normal NOT DETECTED [facility] Comment on above: Performed By: #### R SPLUS ####[facility] [address] [place], [place] [address]Dr. Nicky Simmons Influenza A H1 2009 Not detected Normal NOT DETECTED [facility] Comment on above: Performed By: #### R SPLUS ####[facility] [address]rtmf[address] [place], [place] [address]Dr. Nicky Simmons Influenza A H3 Not detected Normal NOT DETECTED [facility] Comment on above: Performed By: #### R SPLUS ####[facility] [address] [place], [place] [address]Dr. Nicky Simmons Influenza B Not detected Normal NOT DETECTED [facility] Comment on above: Performed By: #### R SPLUS ####[facility] [address]qjrhopl[address] [place], [place] [address]Dr. Nicky Simmons Metapneumovirus Not detected Normal NOT DETECTED [facility] Comment on above: Performed By: #### R SPLUS ####[facility] G[address]cmvpjfn[address] [place], [place] [address]Dr. Nicky Simmons Mycoplas. Pneumoniae Not detected Normal NOT DETECTED [facility] Comment on above: Performed By: #### R SPLUS ####[facility] [address] [place], [place] [address]Dr. Nicky Simmons Parainfluenza 1 Not detected Normal NOT DETECTED [facility] Comment on above: Performed By: #### R SPLUS ####[facility] [address] [address]Dr. Nicky Simmons Parainfluenza 2 Not detected Normal NOT DETECTED [facility] Comment on above: Performed By: #### R SPLUS ####[facility] [address] [place], [place] [address]Dr. Dulceuday Simmons Parainfluenza 3 Not detected Normal NOT DETECTED [facility] Comment on above: Performed By: #### R SPLUS ####[facility] [address]ren[address]bnp[address] [place], [place] [address]Dr. Nicky Simmons Parainfluenza 4 Not detected Normal NOT DETECTED [facility] Comment on above: Performed By: #### R SPLUS ####[facility] [address]uz[address]pp[address] [place], [place] [address]Dr. Nicky Simmons Rhino/Enterovirus Detected Abnormal NOT DETECTED [facility] Comment on above: Performed By: #### R SPLUS ####[facility] [address] [place], [place] [address]Dr. Nicky Simmons RP2 Header 1 RESPIRATORY PANEL: VIRUSES Normal [facility] Comment on above: Performed By: #### R SPLUS ####[facility] [address] [place], [place] [address]Dr. Nicky Simmons RP2 Header 2 RESPIRATORY PANEL: BACTERIA Normal [facility] Comment on above: Performed By: #### R SPLUS ####[facility] [address]sp[address] [place], [place] [address]Dr. Nicky Simmons RSV Not detected Normal NOT DETECTED [facility] [facility] Comment on above: Performed By: #### R SPLUS ####[facility] [address] [place], [place] [address]Dr. Nicky Simmons SARS-CoV-2 (COVID-19) RNA GOKUL+probe Ql (Unsp spec) Not detected Normal NOT DETECTED [facility] Comment on above: Performed By: #### R SPLUS ####[facility] [address] [place], [place] [address]Dr. Nicky Simmons Result Comment: When diagnostic testing [...] for this test is supported by the [employer] of Health and Human Service's declaration that [...] used). Performed By: #### I NFLUAB #### [facility] [address] [place] [address] Dr. Nicky Simmons STREPT SCREENon 05-17-2022 STREP SCREEN A Negative Normal NEGATIVE [facility] Comment on above: Performed By: #### S SCRN, GRASTCX #### [facility] [address] [address] [address] Nicky Simmons XR CHEST 1 Von [...] LOUIE LIRIANO Date: 2022-05-17 15:42 Normal [facility] CBC AUTO DIFFon 04-16-2022 BASO # 0.1 103/ul Normal 0.0-0.1 [facility] Comment on above: Performed By: #### C BC #### [facility] [address] [place] [address] Dr. Nicky Simmons Basophils/100 WBC (Bld) 0.5 % Normal 0.2-2.0 [facility] Comment on above: Performed By: #### C BC #### [facility] [address] [place] [address] Dr. Nicky Simmons EO # 0.2 103/ul Normal 0.0-0.7 [facility] Comment on above: Performed By: #### C BC #### [facility] [address] [place] [address] Dr. Nicky Simmons Eosinophils/100 WBC (Bld) 2.1 % Normal 0.9-7.0 [facility] Comment on above: Performed By: #### C BC #### [facility] [address] [place] [address] Dr. Nicky Simmons Erythrocyte distribution width (RBC) [Ratio] 13.0 % Normal 11.0-15.0 [facility] Comment on above: Performed By: #### C BC #### [facility] [address] [place] [address] Dr. Nicky Simmons Hematocrit (Bld) [Volume fraction] 41.7 % Normal 36.0-48.0 [facility] Comment on above: Performed By: #### C BC #### [facility] [address] [place] [address] Dr. Nicky Simmons Hemoglobin (Bld) [Mass/Vol] 13.5 g/dL Normal 12.0-16.0 [facility] Comment on above: Performed By: #### C BC #### [facility] [address] [place] [address] Dr. Nicky Simmons IG # 0.06 10e3/ul Critically high 0.00-0.03 [facility] Comment on above: Performed By: #### C BC #### [facility] [address] [place] [address] Dr. Nicky Simmons IG % 0.6 % Critically high 0.0-0.5 [facility] Comment on above: Performed By: #### C BC #### [facility] [address] [place] [address] Dr. Nicky Simmons LYMPH # 2.4 103/ul Normal 1.2-3.8 [facility] Comment on above: Performed By: #### C BC #### [facility] [address] [place] [address] Dr. Nicky Simmons Lymphocytes/100 WBC (Bld) 23.1 % Normal 20.5-60.0 [facility] Comment on above: Performed By: #### C BC #### [facility] [address] [place] [address] Dr. Nicky Simmons MANUAL DIFF REQ NO Normal [facility] Comment on above: Performed By: #### C BC #### [facility] [address] [place] [address] Dr. Nicky Simmons MCH (RBC) [Entitic mass] 29.2 pg Normal 26.7-34.0 [facility] Comment on above: Performed By: #### C BC #### [facility] [address] [place] [address] Dr. Nicky Simmons MCHC (RBC) [Mass/Vol] 32.4 g/dL Normal 29.9-35.2 [facility] Comment on above: Performed By: #### C BC #### [facility] [address] [place] [address] Dr. Nicky Simmons MCV (RBC) [Entitic vol] 90.1 fL Normal 81.0-99.0 [facility] Comment on above: Performed By: #### C BC #### [facility] [address] [place] [address] Dr. Nicky Simmons MONO # 0.6 103/ul Normal 0.3-0.8 [facility] Comment on above: Performed By: #### C BC #### [facility] [address] [place] [address] Dr. Nicky Simmons Monocytes/100 WBC (Bld) 5.6 % Normal 1.7-12.0 [facility] Comment on above: Performed By: #### C BC #### [facility] [address] [place] [address] Dr. Nicky Simmons NEUT # 7.2 103/ul Critically high 1.4-6.5 [facility] Comment on above: Performed By: #### C BC #### [facility] [address] [address] [address] Nicky Simmons Neutrophils/100 WBC (Bld) 68.1 % Normal 43.0-75.0 [facility] Comment on above: Performed By: #### C BC #### [facility] [id number] Nicky Simmons Platelet mean volume (Bld) [Entitic vol] 9.6 fL Normal 9.5-13.5 [facility] Comment on above: Performed By: #### C BC #### [facility] [address] [address] [address] Nicky Simmons PLT 339 103/ul Normal 150-450 [facility] Comment on above: Performed By: #### C BC #### [facility] [address] [address] [address] Nicky Simmons RBC 4.63 106/ul Normal 4.20-5.40 [facility] Comment on above: Performed By: #### C BC #### [facility] [id number] Nicky Simmons WBC 10.6 103/ul Normal 4.0-11.0 [facility] Comment on above: Performed By: #### C BC #### [facility] [id number] Nicky Simmons PREG HCG QUALon 04-16-2022 , QUAL Negative Normal NEGATIVE [facility] Comment on above: Performed By: #### P REG ####[facility] [address] [place], [place] [address]WuDr. Nicky Simmons Covid-19 PCR (CVDTBH)on SARS-CoV-2 (COVID-19) RNA GOKUL+probe Ql (Unsp spec) Not detected Normal NOT DETECTED [facility] Comment on above: Result Comment: This test is not yet approved or cleared by the [place] FDA. When there are no FDA-approved or cleared tests available, and other criteria are met, FDA can make tests available under an emergency access mechanism called an Emergency Use Authorization (EUA). The EUA for this test is supported by the Book[employer] of Health and Human Service's (HHS's) declaration [...] with SARS-CoV-2. Performed By: #### C VDTB ####[facility] [address] [address]Dr. Nicky Simmons CBC AUTO DIFFon 03-23-2022 BASO # 0.0 103/ul Normal 0.0-0.1 [facility] Comment on above: Performed By: #### I NFLUAB #### [facility] [address] [address] [address] Nicky Simmons Basophils/100 WBC (Bld) 0.4 % Normal 0.2-2.0 [facility] Comment on above: Performed By: #### I NFLUAB #### [facility] [address] [place] [address] Dr. Nicky Simmons EO # 0.4 103/ul Normal 0.0-0.7 [facility] Comment on above: Performed By: #### I NFLUAB #### [facility] [address] [address] [address] Nicky Simmons Eosinophils/100 WBC (Bld) 3.3 % Normal 0.9-7.0 [facility] Comment on above: Performed By: #### I NFLUAB #### [facility] [address] [place] [address] Dr. Nicky Simmons Erythrocyte distribution width (RBC) [Ratio] 12.9 % Normal 11.0-15.0 [facility] Comment on above: Performed By: #### I NFLUAB #### [facility] [address] [address] [address] Nicky Simmons Hematocrit (Bld) [Volume fraction] 41.7 % Normal 36.0-48.0 [facility] Comment on above: Performed By: #### I NFLUAB #### [facility] [address] [address] [address] Nicky Simmons Hemoglobin (Bld) [Mass/Vol] 13.7 g/dL Normal 12.0-16.0 [facility] Comment on above: Performed By: #### I NFLUAB #### [facility] [address] [address] [address] Nicky Simmons IG # 0.04 10e3/ul Critically high 0.00-0.03 [facility] Comment on above: Performed By: #### I NFLUAB #### [facility] [address] [place] [address] Dr. Nicky Simmons IG % 0.4 % Normal 0.0-0.5 [facility] Comment on above: Performed By: #### I NFLUAB #### [facility] [address] [place] [address] Dr. Nicky Simmons LYMPH # 2.5 103/ul Normal 1.2-3.8 [facility] Comment on above: Performed By: #### I NFLUAB #### [facility] [address] [place] [address] Dr. Nicky Simmons Lymphocytes/100 WBC (Bld) 22.3 % Normal 20.5-60.0 [facility] Comment on above: Performed By: #### I NFLUAB #### [facility] [address] [place] [address] Dr. Nicky Simmons MANUAL DIFF REQ NO Normal [facility] Comment on above: Performed By: #### I NFLUAB #### [facility] [address] [place] [address] Dr. Nicky Simmons MCH (RBC) [Entitic mass] 29.3 pg Normal 26.7-34.0 [facility] Comment on above: Performed By: #### I NFLUAB #### [facility] [address] [address] [address] Nicky Simmons MCHC (RBC) [Mass/Vol] 32.9 g/dL Normal 29.9-35.2 [facility] Comment on above: Performed By: #### I NFLUAB #### [facility] [address] [address] [address] Nicky Simmons MCV (RBC) [Entitic vol] 89.1 fL Normal 81.0-99.0 [facility] Comment on above: Performed By: #### I NFLUAB #### [facility] [address] [address] [address] Nicky Simmons MONO # 0.6 103/ul Normal 0.3-0.8 [facility] Comment on above: Performed By: #### I NFLUAB #### [facility] [address] [place] [address] Dr. Nicky Simmons Monocytes/100 WBC (Bld) 5.4 % Normal 1.7-12.0 [facility] Comment on above: Performed By: #### I NFLUAB #### [facility] [address] [address] [address] Nicky Simmons NEUT # 7.6 103/ul Critically high 1.4-6.5 [facility] Comment on above: Performed By: #### I NFLUAB #### [facility] [address] [address] [address] Nicky Simmons Neutrophils/100 WBC (Bld) 68.2 % Normal 43.0-75.0 [facility] Comment on above: Performed By: #### I NFLUAB #### [facility] [address] [address] [address] Nicky Simmons Platelet mean volume (Bld) [Entitic vol] 9.2 fL Critically low 9.5-13.5 [facility] Comment on above: Performed By: #### I NFLUAB #### [facility] [address] [address] [address] Nicky Simmons PLT 387 103/ul Normal 150-450 [facility] Comment on above: Performed By: #### I NFLUAB #### [facility] [address] [address] [address] Nicky Simmons RBC 4.68 106/ul Normal 4.20-5.40 [facility] Comment on above: Performed By: #### I NFLUAB #### [facility] [address] [place] [address] Dr. Nicky Simmons WBC 11.1 103/ul Critically high 4.0-11.0 [facility] Comment on above: Performed By: #### I NFLUAB #### [facility] [address] [place] [address] Dr. Nicky Simmons CRPon 03-23-2022 CRP 1.8 mg/dL Critically high <=1.0 [facility] Comment on above: Performed By: #### I NFLUAB #### [facility] [address] [place] [address] Dr. Nicky Simmons PROF CHEM 8 (BAS METB)on Anion gap [Moles/Vol] 12.2 mmol/L Normal [facility] Comment on above: Performed By: #### I NFLUAB #### [facility] [address] [place] [address] Dr. Nicky Simmons Calcium [Mass/Vol] 8.8 mg/dL Normal 8.5-10.1 [facility] Comment on above: Performed By: #### I NFLUAB #### [facility] [address] [place] [address] Dr. Nicky Simmons Chloride [Moles/Vol] 107 mmol/L Normal 98-107 [facility] Comment on above: Performed By: #### I NFLUAB #### [facility] [address] [place] [address] Dr. Nicky Simmons CO2 [Moles/Vol] 23.8 mmol/L Normal 21.0-32.0 The [facility] Comment on above: Performed By: #### I NFLUAB #### [facility] [address] [place] [address] Dr. Nicky Simmons Creatinine [Mass/Vol] 0.78 mg/dL Normal 0.55-1.02 [facility] Comment on above: Performed By: #### I NFLUAB #### [facility] [address] [place] [address] Dr. Nicky Simmons EGFR-AF SURINAMESE >60 Normal >=60 [facility] Comment on above: Performed By: #### I NFLUAB #### [facility] [address] [address] [address] Nicky Simmons EGFR-NON AF SURINAMESE >60 Normal >=60 [facility] Comment on above: Performed By: #### I NFLUAB #### [facility] [address] [address] [address] Nicky Simmons Glucose [Mass/Vol] 121 mg/dL Critically high 74-106 [facility] Comment on above: Performed By: #### I NFLUAB #### [facility] [address] [place] [address] Dr. Nicky Simmons Potassium [Moles/Vol] 4.0 mmol/L Normal 3.5-5.1 [facility] Comment on above: Performed By: #### I NFLUAB #### [facility] [address] [place] [address] Dr. Nicky Simmons Sodium [Moles/Vol] 139 mmol/L Normal 136-145 [facility] Comment on above: Performed By: #### I NFLUAB #### [facility] [address] [place] [address] Dr. Nicky Simmons Urea nitrogen [Mass/Vol] 11.0 mg/dL Normal 7.0-18.0 [facility] Comment on above: Performed By: #### I NFLUAB #### [facility] [address] [place] [address] Dr. Nicky Simmons Urea nitrogen/Creatinine [Mass ratio] 14.1 mg/mg Normal [facility] Comment on above: Performed By: #### I NFLUAB #### [facility] [address] [place] [address] Dr. Nicky Simmons SED RATE [facility] 2021 SED RATE 36 mm/hr Critically high <=20 [facility] Comment on above: Performed By: #### C BC #### [facility] [address] [place] [address] Dr. Nicky Simmons XR KNEE LT 4V [...] MARIAM SANCHEZ Date: 2022-02-27 22:00 Normal [facility] CBC AUTO DIFFon 02-23-2022 BASO # 0.1 103/ul Normal 0.0-0.1 [facility] Comment on above: Performed By: #### C BC #### [facility] [address] [place] [address] Dr. Nicky Simmons Basophils/100 WBC (Bld) 0.6 % Normal 0.2-2.0 [facility] Comment on above: Performed By: #### C BC #### [facility] [address] [place] [address] Dr. Nicky Simmons EO # 0.3 103/ul Normal 0.0-0.7 [facility] Comment on above: Performed By: #### C BC #### [facility] [address] [place] [address] Dr. Nicky Simmons Eosinophils/100 WBC (Bld) 2.5 % Normal 0.9-7.0 [facility] Comment on above: Performed By: #### C BC #### [facility] [address] [place] [address] Dr. Nicky Simmons Erythrocyte distribution width (RBC) [Ratio] 12.8 % Normal 11.0-15.0 [facility] Comment on above: Performed By: #### C BC #### [facility] [address] [place] [address] Dr. Nicky Simmons Hematocrit (Bld) [Volume fraction] 39.5 % Normal 36.0-48.0 [facility] Comment on above: Performed By: #### C BC #### [facility] [address] [place] [address] Dr. Nicky Simmons Hemoglobin (Bld) [Mass/Vol] 13.0 g/dL Normal 12.0-16.0 [facility] Comment on above: Performed By: #### C BC #### [facility] [address] [place] [address] Dr. Nicky Simmons IG # 0.04 10e3/ul Critically high 0.00-0.03 [facility] Comment on above: Performed By: #### C BC #### [facility] [address] [place] [address] Dr. Nicky Simmons IG % 0.3 % Normal 0.0-0.5 [facility] Comment on above: Performed By: #### C BC #### [facility] [address] [place] [address] Dr. Nicky Simmons LYMPH # 3.0 103/ul Normal 1.2-3.8 [facility] Comment on above: Performed By: #### C BC #### [facility] [address] [place] [address] Dr. Nicky Simmons Lymphocytes/100 WBC (Bld) 24.4 % Normal 20.5-60.0 [facility] Comment on above: Performed By: #### C BC #### [facility] [address] [place] [address] Dr. Nicky Simmons MANUAL DIFF REQ NO Normal [facility] Comment on above: Performed By: #### C BC #### [facility] [address] [place] [address] Dr. Nicky Simmons MCH (RBC) [Entitic mass] 29.4 pg Normal 26.7-34.0 [facility] Comment on above: Performed By: #### C BC #### [facility] [address] [place] [address] Dr. Nicky Simmons MCHC (RBC) [Mass/Vol] 32.9 g/dL Normal 29.9-35.2 [facility] Comment on above: Performed By: #### C BC #### [facility] [address] [address] [address] Nicky Simmons MCV (RBC) [Entitic vol] 89.4 fL Normal 81.0-99.0 [facility] Comment on above: Performed By: #### C BC #### [facility] [address] [address] [address] Nicky Simmons MONO # 0.7 103/ul Normal 0.3-0.8 [facility] Comment on above: Performed By: #### C BC #### [facility] [address] [address] [address] Nicky Simmons Monocytes/100 WBC (Bld) 6.0 % Normal 1.7-12.0 [facility] Comment on above: Performed By: #### C BC #### [facility] [address] [address] [address] Nicky Simmons NEUT # 8.0 103/ul Critically high 1.4-6.5 [facility] Comment on above: Performed By: #### C BC #### [facility] [address] [address] [address] Nicky Simmons Neutrophils/100 WBC (Bld) 66.2 % Normal 43.0-75.0 [facility] Comment on above: Performed By: #### C BC #### [facility] [address] [address] [address] Nicky Simmons Platelet mean volume (Bld) [Entitic vol] 9.1 fL Critically low 9.5-13.5 [facility] Comment on above: Performed By: #### C BC #### [facility] [address] [address] [address] Nicky Simmons PLT 367 103/ul Normal 150-450 [facility] Comment on above: Performed By: #### C BC #### [facility] [address] [address] [address] Nicky Simmons RBC 4.42 106/ul Normal 4.20-5.40 [facility] Comment on above: Performed By: #### C BC #### [facility] [address] [address] [address] Nicky Simmons WBC 12.1 103/ul Critically high 4.0-11.0 [facility] Comment on above: Performed By: #### C BC #### [facility] [address] [address] [address] Nicky Simmons ER URINE PROFILEon 2 Bilirubin Ql (U) Negative Normal NEGATIVE The [facility] Comment on above: Performed By: #### I NFLUAB #### [facility] [address] [place] [address] Dr. Nicky Simmons Clarity (U) CLEAR Normal CLEAR [facility] Comment on above: Performed By: #### I NFLUAB #### [facility] [address] [place] [address] Dr. Nicky Simmons Color (U) RED Abnormal YELLOW [facility] Comment on above: Performed By: #### I NFLUAB #### [facility] [address] [place] [address] Dr. Nicky NORTON A micrscopic examination will be performed if indicated. Normal [facility] Comment on above: Performed By: #### I NFLUAB #### [facility] [address] [place] [address] Dr. Nicky Simmons Glucose Ql (U) Negative Normal NEGATIVE [facility] Comment on above: Performed By: #### I NFLUAB #### [facility] [address] [address] [address] Nicky Simmons Hemoglobin Ql (U) LARGE Abnormal NEGATIVE The [facility] Comment on above: Performed By: #### I NFLUAB #### [facility] [address] [place] [address] Dr. Nicky Simmons Ketones Ql (U) Negative Normal NEGATIVE [facility] Comment on above: Performed By: #### I NFLUAB #### [facility] [address] [place] [address] Dr. Nicky Simmons LEUKOCYTES Negative Normal NEGATIVE [facility] Comment on above: Performed By: #### I NFLUAB #### [facility] [address] [address] [address] Nicky Simmons Nitrite Ql (U) Negative Normal NEGATIVE [facility] Comment on above: Performed By: #### I NFLUAB #### [facility] [address] [address] [address] Nicky Simmons pH (U) 8.5 [pH] Normal 5-9 [facility] Comment on above: Performed By: #### I NFLUAB #### [facility] [address] [place] [address] Dr. Nicky Simmons SPEC GRAVITY 1.015 Normal 1.005-<=1.025 [facility] Comment on above: Performed By: #### I NFLUAB #### [facility] [address] [place] [address] Dr. Nicky Simmons UA PROTEIN TRACE Normal NEGATIVE/ TRACE [facility] Comment on above: Performed By: #### I NFLUAB #### [facility] [address] [address] [address] Nicky Simmons UR MICRO IND INDICATED Normal [facility] Comment on above: Performed By: #### I NFLUAB #### [facility] [address] [place] [address] Dr. Nicky Simmons Urobilinogen Qn (U) 0.2 {Yan'U}/dL Normal 0.2 - 1. 0 [facility] Comment on above: Performed By: #### I NFLUAB #### [facility] [address] [address] [address] Nicky Simmons SED RATE WESTERGRENon 2021 SED RATE 30 mm/hr Critically high <=20 [facility] Comment on above: Performed By: #### S EDR ####[facility] [id number] [address]Dr. Nicky Simmons URINE MICROSCOPIC ONLYon BACTERIA TRACE Abnormal NONE SEEN [facility] Comment on above: Performed By: #### I NFLUAB #### [facility] [address] [place] [address] Dr. Nicky Simmons Bacteria identified Cx Nom (U) NOT INDICATED Normal [facility] Comment on above: Performed By: #### I NFLUAB #### [facility] [address] [place] [address] Dr. Nicky Simmons CAST NONE SEEN Normal NONE SEEN [facility] Comment on above: Performed By: #### I NFLUAB #### [facility] [address] [place] [address] Dr. Nicky Simmons Crystals LM Nom (Urine sed) NONE SEEN Normal NONE SEEN [facility] Comment on above: Performed By: #### I NFLUAB #### [facility] [address] [place] [address] Dr. Nicky Simmons Epithelial cells LM Ql (Urine sed) RARE Normal NONE SEEN /RARE [facility] Comment on above: Performed By: #### I NFLUAB #### [facility] [address] [place] [address] Dr. Nicky Simmons MUCOUS NONE SEEN Normal NONE SEEN [facility] Comment on above: Performed By: #### I NFLUAB #### [facility] [facility] [address] [place] [address] Dr. Nicky Simmons RBC 75-100 Abnormal 0-2 [facility] Comment on above: Performed By: #### I NFLUAB #### [facility] [address] [place] [address] Dr. Nicky Simmons WBC 2-5 Abnormal NONE SEEN [facility] Comment on above: Performed By: #### I NFLUAB #### [facility] [address] [place] [address] Dr. Nicky Simmons US PELVISon 02-23-2022 US [...] SREE LYLE Date: 2022-02-23 13:53 Normal [facility] C-Reactive Proteinon 020 CRP [Mass/Vol] 2.8 mg/L Normal 0.0-5.0 [facility] Comment on above: Performed By: #### C DP, CRP, CP, TROPI, HCG, LD #### [facility] [address] [place] [address] Leno Sewer: Christopher Dorsey DO CRP [Mass/Vol] 2.8 mg/L 0 - 5 mg/L [place], [place] CBC Auto Differentialon 02-04 Basophils (Bld) [#/Vol] 0.00 10*3/uL [place] Basophils/100 WBC (Bld) 0 % 0 - 2 % [place] Differential Type NOT REPORTED [place] Eosinophils (Bld) [#/Vol] 0.20 10*3/uL [place] Eosinophils/100 WBC (Bld) 3 % 0 - 4 % [place] Erythrocyte distribution width (RBC) [Ratio] 13.5 % 11.5 - 14.9 % [place] Hematocrit (Bld) [Volume fraction] 39.3 % 36 - 46 % [place] Hemoglobin (Bld) [Mass/Vol] 12.9 g/dL 12 - 16 g/dL [place] Lymphocytes (Bld) [#/Vol] 2.00 10*3/uL [place] Lymphocytes/100 WBC (Bld) 29 % 24 - 44 % [place] MCH (RBC) [Entitic mass] 29.3 pg 26 - 34 pg [place] MCHC (RBC) [Mass/Vol] 32.7 g/dL 31 - 37 g/dL [place] MCV (RBC) [Entitic vol] 89.6 fL 80 - 100 fL [place] Monocytes (Bld) [#/Vol] 0.50 10*3/uL [place] Monocytes/100 WBC (Bld) 7 % 1 - 7 % [place] Platelet mean volume (Bld) [Entitic vol] 8.3 fL 6 - 12 fL [place] Platelets (Bld) [#/Vol] 238 10*3/uL [place] Platelets (Bld) [#/Vol] NOT REPORTED [place] RBC (Bld) [#/Vol] 4.39 10*6/uL 4 - 5.2 m/uL [place] RBC morphology finding Nom (Bld) NOT REPORTED [place] Segmented neutrophils/100 WBC (Bld) 61 % 36 - 66 % [place] Segs Absolute 4.20 [place] WBC (Bld) [#/Vol] NOT REPORTED per 100 WBC [place] WBC (Bld) [#/Vol] 7.0 10*3/uL [place] WBC Morphology NOT REPORTED [place] CBC with Diffon 03-01-2020 Abs. Basophil 0.00 k/uL Normal 0.0-0.2 [facility] Comment on above: Performed By: #### C DP, CRP, CP, TROPI, HCG, LD #### [facility] [place] [address] Leno Sewer: Christopher Dorsey DO Abs.Neutrophil (Seg) 4.20 k/uL Normal 1.3-9.1 [facility] Comment on above: Performed By: #### C DP, CRP, CP, TROPI, HCG, LD #### [facility] [address] [place] [address] Leno Sewer: Christopher Dorsey DO Basophils/100 WBC (Bld) 0 % Normal 0-2 [facility] Comment on above: Performed By: #### C DP, CRP, CP, TROPI, HCG, LD #### [facility] [address] [place] [address] Leno Sewer: Christopher Dorsey DO Eosinophils (Bld) [#/Vol] 0.20 10*3/uL Normal 0.0-0.4 [facility] Comment on above: Performed By: #### C DP, CRP, CP, TROPI, HCG, LD #### [facility] [address] [place] [address] Leno Sewer: Christopher Dorsey DO Eosinophils/100 WBC (Bld) 3 % Normal 0-4 [facility] Comment on above: Performed By: #### C DP, CRP, CP, TROPI, HCG, LD #### [facility] [address] [facility] [place] [address] Leno Sewer: Christopher Dorsey DO Erythrocyte distribution width (RBC) [Ratio] 13.5 % Normal 11.5-14.9 [facility] Comment on above: Performed By: #### C DP, CRP, CP, TROPI, HCG, LD #### [facility] [address] [facility] [place] [address] Leno Sewer: Christopher Dorsey DO Hematocrit (Bld) [Volume fraction] 39.3 % Normal 36-46 [facility] Comment on above: Performed By: #### C DP, CRP, CP, TROPI, HCG, LD #### [facility] [address] [facility] [place] [address] Leno Sewer: Christopher Dorsey DO Hemoglobin (Bld) [Mass/Vol] 12.9 g/dL Normal 12.0-16.0 [facility] Comment on above: Performed By: #### C DP, CRP, CP, TROPI, HCG, LD #### [facility] [address] [place] [address] Leno Sewer: Christopher Dorsey DO Lymphocytes (Bld) [#/Vol] 2.00 10*3/uL Normal 1.0-4.8 [facility] Comment on above: Performed By: #### C DP, CRP, CP, TROPI, HCG, LD #### [facility] [address] [facility] [place] [address] Leno Sewer: Christopher Dorsey DO Lymphocytes/100 WBC (Bld) 29 % Normal 24-44 [facility] Comment on above: Performed By: #### C DP, CRP, CP, TROPI, HCG, LD #### [facility] [address] [facility] [place] [address] Leno Sewer: Christopher Dorsey DO MCH (RBC) [Entitic mass] 29.3 pg Normal 26-34 [facility] Comment on above: Performed By: #### C DP, CRP, CP, TROPI, HCG, LD #### [facility] [place] [address] Leno Sewer: Christopher Dorsey DO MCHC (RBC) [Mass/Vol] 32.7 g/dL Normal 31-37 [facility] Comment on above: Performed By: #### C DP, CRP, CP, TROPI, HCG, LD #### [facility] [place] [address] Leno Sewer: Christopher Dorsey DO MCV (RBC) [Entitic vol] 89.6 fL Normal 80-100 [facility] Comment on above: Performed By: #### C DP, CRP, CP, TROPI, HCG, LD #### [facility] [place] [address] Leno Sewer: Christopher Dorsey DO Monocytes (Bld) [#/Vol] 0.50 10*3/uL Normal 0.1-1.3 [facility] Comment on above: Performed By: #### C DP, CRP, CP, TROPI, HCG, LD #### [facility] [address] [place], [place] [address]. [place] [address] Leno Sewer: Christopher Dorsey DO Monocytes/100 WBC (Bld) 7 % Normal 1-7 [facility] Comment on above: Performed By: #### C DP, CRP, CP, TROPI, HCG, LD #### [facility] [address] [facility] [place] [address] Leno Sewer: Christopher Dorsey DO Neutrophil (Seg) 61 % Normal 36-66 [facility] Comment on above: Performed By: #### C DP, CRP, CP, TROPI, HCG, LD #### [facility] [address] [facility] [place] [address] Leno Sewer: Christopher Dorsey DO Platelet mean volume (Bld) [Entitic vol] 8.3 fL Normal 6.0-12.0 [facility] Comment on above: Performed By: #### C DP, CRP, CP, TROPI, HCG, LD #### [facility] [address] [facility] [place] [address] Leno Sewer: Christopher Dorsey DO Platelets (Bld) [#/Vol] 238 10*3/uL Normal 150-450 [facility] Comment on above: Performed By: #### C DP, CRP, CP, TROPI, HCG, LD #### [facility] [address] [facility] [place] [address] Leno Sewer: Christopher Dorsey DO RBC (Bld) [#/Vol] 4.39 10*6/uL Normal 4.0-5.2 [facility] Comment on above: Performed By: #### C DP, CRP, CP, TROPI, HCG, LD #### [facility] [address] [facility] [place] [address] Leno Sewer: Christopher Dorsey DO WBC (Bld) [#/Vol] 7.0 10*3/uL Normal 3.5-11.0 [facility] Comment on above: Performed By: #### C DP, CRP, CP, TROPI, HCG, LD #### [facility] [place] [address] Leno Sewer: Christopher Dorsey DO Abs.Imm.Granulocyte NOT REPORTED Normal 0.00-0.30 [facility] Comment on above: Performed By: #### C DP, CRP, CP, TROPI, HCG, LD #### [facility] [place] [address] Leno Sewer: Christopher Dorsey DO Auto Diff Performed NOT REPORTED Normal [facility] Comment on above: Performed By: #### C DP, CRP, CP, TROPI, HCG, LD #### [facility] [address] [place] [address] Leno Sewer: Christopher Dorsey DO Immature granulocytes (Bld) [#/Vol] NOT REPORTED Normal 0 [facility] Comment on above: Performed By: #### C DP, CRP, CP, TROPI, HCG, LD #### [facility] [address] [place] [address] Leno Sewer: Christopher Dorsey DO NRBC Automated NOT REPORTED Normal [facility] Comment on above: Performed By: #### C DP, CRP, CP, TROPI, HCG, LD #### [facility] [address] [place] [address] Leno Sewer: Christopher Dorsey DO Platelets (Bld) [#/Vol] NOT REPORTED Normal [facility] Comment on above: Performed By: #### C DP, CRP, CP, TROPI, HCG, LD #### [facility] [address] [place] [address] Leno Sewer: Fanelly, Christopher, DO RBC morphology finding Nom (Bld) NOT REPORTED Normal [facility] Comment on above: Performed By: #### C DP, CRP, CP, TROPI, HCG, LD #### [facility] [address] [facility] [place] [address] Leno Sewer: Christopher Dorsey DO WBC Morphology NOT REPORTED Normal [facility] Comment on above: Performed By: #### C DP, CRP, CP, TROPI, HCG, LD #### [facility] [address] [facility] [place] [address] Leno Sewer: Christopher Dorsey DO Comp Metabolic Profon 2019 Bilirubin Ql (U) <0.15 Low 0.3-1.2 [facility] Comment on above: Performed By: #### C DP, CRP, CP, TROPI, HCG, LD #### [facility] [place] [address] Leno Sewer: Christopher Dorsey DO (cont.) Normal [facility] Comment on above: Result Comment: Aver age GFR for 30-39 years old: 107 mL/min/1.73sq m Chronic Kidney Disease: <60 mL/min/1.73sq m Kidney failure: <15 mL/min/1.73sq m eGFR calculated using average adult body mass. Additional eGFR calculator available at: http://www.[employer]/multiple_crcl_2012.htm Performed By: #### C DP, CRP, CP, TROPI, HCG, LD #### [facility] [address] [facility] [place] [address] Leno Sewer: Christopher Dorsey DO Albumin [Mass/Vol] 3.7 g/dL Normal 3.5-5.2 [facility] Comment on above: Performed By: #### C DP, CRP, CP, TROPI, HCG, LD #### [facility] [address] [facility] [place] [address] Leno Sewer: Christopher Dorsey DO Alkaline Phos 67 U/L Normal 35-104 [facility] Comment on above: Performed By: #### C DP, CRP, CP, TROPI, HCG, LD #### [facility] [address] [place] [address] Leno Sewer: Christopher Dorsey DO ALT [Catalytic activity/Vol] 12 U/L Normal 5-33 [facility] Comment on above: Performed By: #### C DP, CRP, CP, TROPI, HCG, LD #### [facility] [address] [place] [address] Leno Sewer: Christopher Dorsey DO Anion gap [Moles/Vol] 12 mmol/L Normal 9-17 [facility] Comment on above: Performed By: #### C DP, CRP, CP, TROPI, HCG, LD #### [facility] [address] [place] [address] Leno Sewer: Christopher Dorsey DO AST [Catalytic activity/Vol] 13 U/L Normal <32 [facility] Comment on above: Performed By: #### C DP, CRP, CP, TROPI, HCG, LD #### [facility] [address] [facility] [place] [address] Leno Sewer: Christopher Dorsey DO Calcium [Mass/Vol] 8.7 mg/dL Normal 8.6-10.4 [facility] Comment on above: Performed By: #### C DP, CRP, CP, TROPI, HCG, LD #### [facility] [address] [place] [address] Leno Sewer: Christopher Dorsey DO Chloride [Moles/Vol] 110 mmol/L High 98-107 [facility] Comment on above: Performed By: #### C DP, CRP, CP, TROPI, HCG, LD #### [facility] [address] [place] [address] Leno Sewer: Christopher Dorsey DO CO2 [Moles/Vol] 18 mmol/L Low 20-31 [facility] Comment on above: Performed By: #### C DP, CRP, CP, TROPI, HCG, LD #### [facility] [address] [place] [address] Leno Sewer: Christopher Dorsey DO Creatinine [Mass/Vol] 0.62 mg/dL Normal 0.50-0.90 [facility] Comment on above: Performed By: #### C DP, CRP, CP, TROPI, HCG, LD #### [facility] [address] [place] [address] Leno Sewer: Christopher Dorsey DO GFR, Amer >60 Normal >60 [facility] Comment on above: Performed By: #### C DP, CRP, CP, TROPI, HCG, LD #### [facility] [address] [place] [address] Leno Sewer: Christopher Dorsey DO GFR,non Amer >60 Normal >60 [facility] Comment on above: Performed By: #### C DP, CRP, CP, TROPI, HCG, LD #### [facility] [address] [place] [address] Leno Sewer: Christopher Dorsey DO Glucose [Mass/Vol] 84 mg/dL Normal 70-99 [facility] Comment on above: Performed By: #### C DP, CRP, CP, TROPI, HCG, LD #### [facility] [address] [place] [address] Leno Sewer: Christopher Dorsey DO Potassium [Moles/Vol] 3.9 mmol/L Normal 3.7-5.3 [facility] Comment on above: Performed By: #### C DP, CRP, CP, TROPI, HCG, LD #### [facility] [address] [place] [address] Leno Sewer: Christopher Dorsey DO Protein [Mass/Vol] 6.3 g/dL Low 6.4-8.3 [facility] Comment on above: Performed By: #### C DP, CRP, CP, TROPI, HCG, LD #### [facility] [address] [facility] [place] [address] Leno Sewer: Christopher Dorsey DO Sodium [Moles/Vol] 140 mmol/L Normal 135-144 [facility] Comment on above: Performed By: #### C DP, CRP, CP, TROPI, HCG, LD #### [facility] [address] [facility] [place] [address] Leno Sewer: Christopher Dorsey DO Urea nitrogen [Mass/Vol] 11 mg/dL Normal 6-20 [facility] Comment on above: Performed By: #### C DP, CRP, CP, TROPI, HCG, LD #### [facility] [address] [facility] [place] [address] Leno Sewer: Christopher Dorsey DO Albumin/Globulin [Mass ratio] NOT REPORTED Normal 1.0-2.5 [facility] Comment on above: Performed By: #### C DP, CRP, CP, TROPI, HCG, LD #### [facility] [address] [facility] [place] [address] Leno Sewer: Christopher Dorsey DO BUN/CRE Ratio NOT REPORTED Normal 9-20 [facility] Comment on above: Performed By: #### C DP, CRP, CP, TROPI, HCG, LD #### [facility] [address] [facility] [place] [address] Leno Sewer: Fanelly, Christopher, DO Staging: NOT REPORTED Normal [facility] Comment on above: Performed By: #### C DP, CRP, CP, TROPI, HCG, LD #### [facility] [address] [place] [address] Leno Sewer: Christopher Dorsey DO Comprehensive Metabolic Pane kimber 03-01-2020 Albumin [Mass/Vol] 3.7 g/dL 3.5 - 5.2 g/dL [place] Albumin/Globulin [Mass ratio] NOT REPORTED [place] ALP [Catalytic activity/Vol] 67 U/L 35 - 104 U/L [place] ALT [Catalytic activity/Vol] 12 U/L 5 - 33 U/L [place] Anion gap [Moles/Vol] 12 mmol/L 9 - 17 mmol/L [place] AST [Catalytic activity/Vol] 13 U/L <32 [place] Bilirubin Ql (U) <0.15 Low 0.3 - 1.2 mg/dL [place] Bun/Cre Ratio NOT REPORTED [place] Calcium [Mass/Vol] 8.7 mg/dL 8.6 - 10. 4 mg/dL [place] Chloride [Moles/Vol] 110 mmol/L High 98 - 10 7 mmol/L [place] CO2 [Moles/Vol] 18 mmol/L Low 20 - 31 mmol/L [place] Creatinine [Mass/Vol] 0.62 mg/dL 0.5 - 0.9 mg/dL [place] GFR >60 >60 mL/min [place] GFR Non- >60 >60 mL/min [place] GFR/1.73 sq M predicted among non-blacks MDRD (S/P/Bld) [Vol rate/Area] NOT REPORTED [place] GFR/1.73 sq M predicted among non-blacks MDRD (S/P/Bld) [Vol rate/Area] [place] Comment on above: Average GFR for 30-3 9 years old: 107 mL/min/1.73sq m Chronic Kidney Disease: <60 mL/min/1.73sq m Kidney failure: <15 mL/min/1.73sq m eGFR calculated using average adult body mass. Additional eGFR calculator available at: http://www.[employer]/multiple_crcl_2012.htm Glucose [Mass/Vol] 84 mg/dL 70 - 99 mg/dL [place], [place] Interpretation and review of laboratory results Abnormal [place] Potassium [Moles/Vol] 3.9 mmol/L 3.7 - 5.3 mmol/L [place] Protein [Mass/Vol] 6.3 g/dL Low 6.4 - 8.3 g/dL [place] Sodium [Moles/Vol] 140 mmol/L 135 - 144 mmol/L [place] Urea nitrogen [Mass/Vol] 11 mg/dL 6 - 20 mg/dL [place] HCG Screen, Bloodon 03-01-20 20 HCG Qn Negative Normal NEG [facility] Comment on above: Result Comment: Spec [...] DP, CRP, CP, TROPI, HCG, LD #### [facility] [address] [place] [address] Leno Sewer: Christopher Dorsey DO hCG Qual Negative NEGATIVE [place] Comment on above: Specimens with hCG l evels near the threshold of the test (25 mIU/mL) may give a negative or indeterminate result. In such cases, another test should be performed with a new specimen in 48-72 hours. If early is suspected clinically in this setting, correlation with quantitative serum b-hCG level is suggested. LACTATE DEHYDROGENASEon 06- Interpretation and review of laboratory results Abnormal [place] LD 101 U/L Low 135 - 214 U/L [place] Lactate Dehydrogenaseon 02-04 LDH [Catalytic activity/Vol] 101 U/L Low 135-214 [facility] Comment on above: Performed By: #### C DP, CRP, CP, TROPI, HCG, LD #### [facility] [address] [place] [address] Leno Sewer: Christopher Dorsey DO Otheron 03-01-2020 Immature granulocytes (Bld) [#/Vol] NOT REPORTED [place] Troponinon 03-01-2020 Troponin I.cardiac [Mass/Vol] ng/mL Normal 0-14 [facility] Comment on above: Result Comment: High Sensitivity Troponin values cannot be compared with other Troponin methodologies. Patients with high levels of Biotin oral intake (i.e >5mg/day) may have falsely decreased Troponin levels. Samples collected within 8 hours of biotin intake may require additional information for diagnosis. Performed By: #### T ELMO #### [facility] [address] [place] [address] Leno Sewer: Christopher Dorsey DO Troponin I.cardiac [Mass/Vol] NOT REPORTED Normal <0.03 [facility] Comment on above: Performed By: #### T ELMO #### [facility] [address] [place] [address] Leno Sewer: Christopher Dorsey DO Troponin I.cardiac [Mass/Vol] ng/mL Normal 0-14 [facility] Comment on above: Result Comment: High Sensitivity Troponin values cannot be compared with other Troponin methodologies. Patients with high levels of Biotin oral intake (i.e >5mg/day) may have falsely decreased Troponin levels. Samples collected within 8 hours of biotin intake may require additional information for diagnosis. Performed By: #### C DP, CRP, CP, TROPI, HCG, LD #### [facility] [address] [place] [address] Leno Sewer: Christopher Dorsey DO Troponin I.cardiac [Mass/Vol] NOT REPORTED [place] Troponin T.cardiac [Mass/Vol] NOT REPORTED <0.03 ng/mL [place] Troponin, High Sensitivity <6 0 - 14 ng/L [place] Comment on above: High Sensitivity Troponin values cannot be compared with other Troponin methodologies. Patients with high levels of Biotin oral intake (i.e >5mg/day) may have falsely decreased Troponin levels. Samples collected within 8 hours of biotin intake may require additional information for diagnosis. Troponin I.cardiac [Mass/Vol] NOT REPORTED Normal [facility] Comment on above: Performed By: #### C DP, CRP, CP, TROPI, HCG, LD #### [facility] [address] [place] [address] Leno Sewer: Christopher Dorsey DO Troponin I.cardiac [Mass/Vol] NOT REPORTED [place] Troponin T.cardiac [Mass/Vol] NOT REPORTED <0.03 ng/mL [place] Troponin, High Sensitivity <6 0 - 14 ng/L [place] Comment on above: High Sensitivity Troponin [...] Wilfredo Andrade MD 03/01/[address] [facility] No acute cardiopulmonary process. [place], [place] Kyle, [facility] Incoming Radiant Results From [employer] - 03/01/2020 10:19 AM EDT EXAMINATION: ONE [...] osseous abnormality. IMPRESSION: No acute cardiopulmonary process. [place] EXAMINATION: ONE XRA Y VIEW OF [...] unremarkable. There is no acute osseous abnormality. [facility] [place] Vital Signs Date Time Vital Sign Value Performing Clinician Facility 01-16-2025 13:46-0400 Body height 162.6 cm Sherita Lowe PA Work Phone: [facility] 01-16-2025 13:46-0400 Body mass index (BMI) [Ratio] 35.87 kg/m2 Sherita Lowe PA Work Phone: [facility] 01-16-2025 13:46-0400 Body weight 94.8 kg Sherita Lowe PA Work Phone: [facility] 01-16-2025 13:46-0400 Diastolic blood pressure 80 mm[Hg] Sherita Lowe PA Work Phone: [facility] 01-16-2025 13:46-0400 Systolic blood pressure 118 mm[Hg] Sherita Lowe PA Work Phone: [facility] 11-06-2024 13:52-0500 Diastolic blood pressure 74 mm[Hg] Emmie Hill COLLECTION SUPPORT SPECIALIST Work Phone: [facility] 11-06-2024 13:52-0500 Heart rate 75 /min Emmie Hill COLLECTION SUPPORT SPECIALIST Work Phone: [facility] 11-06-2024 13:52-0500 Systolic blood pressure 119 mm[Hg] Emmie Hill COLLECTION SUPPORT SPECIALIST Work Phone: [facility] 10-31-2024 08:23-0500 Body height 162.6 cm Sherita Lowe PA Work Phone: [facility] 10-31-2024 08:23-0500 Body mass index (BMI) [Ratio] 36.56 kg/m2 Sherita Lowe PA Work Phone: [facility] 10-31-2024 08:23-0500 Body weight 96.62 kg Sherita Lowe PA Work Phone: [facility] 10-31-2024 08:23-0500 Diastolic blood pressure 84 mm[Hg] Sherita Lowe PA Work Phone: [facility] 10-31-2024 08:23-0500 Systolic blood pressure 124 mm[Hg] Sherita Lowe PA Work Phone: [facility] 07-25-2024 14:32-0500 Body height 162.6 cm Saloni Hill PA Work Phone: [facility] 07-25-2024 14:32-0500 Body mass index (BMI) [Ratio] 36.9 kg/m2 Saloni Hill PA Work Phone: [facility] 07-25-2024 14:32-0500 Body weight 97.52 kg Saloni Piper PA Work Phone: [facility] 07-25-2024 14:32-0500 Diastolic blood pressure 86 mm[Hg] Saloni Hill PA Work Phone: [facility] 07-25-2024 14:32-0500 Heart rate 84 /min Saloni Piper PA Work Phone: [facility] 07-25-2024 14:32-0500 Respiratory rate 16 /min Saloni Piper PA Work Phone: [facility] 07-25-2024 14:32-0500 SaO2% (BldA) [Mass fraction] 97 % Saloni GREER Work Phone: [facility] 07-25-2024 14:32-0500 Systolic blood pressure 132 mm[Hg] Saloni GREER Work Phone: [facility] 03-01-2024 09:42-0400 Diastolic blood pressure 78 mm[Hg] OMKAR Emmie Liz Work Phone: [facility] 03-01-2024 09:42-0400 Heart rate 88 /min OMKAR Olea Liz Work Phone: [facility] 03-01-2024 09:42-0400 Respiratory rate 20 /min COLLECTION SUPPORT SPECIALIST Emmie Liz Work Phone: [facility] 03-01-2024 09:42-0400 SaO2% (BldA) [Mass fraction] 97 % [employer]MK[employer] Emmie Liz Work Phone: [facility] 03-01-2024 09:42-0400 Systolic blood pressure 117 mm[Hg] OMKAR Emmie Liz Work Phone: [facility] 03-01-2024 09:41-0400 Body height 162.56 cm COLLECTION SUPPORT SPECIALIST Emmie Liz Work Phone: [facility] 03-01-2024 09:41-0400 Body weight 95.25 kg OMKAR Emmie Liz Work Phone: [facility] 02-22-2024 13:17-0400 Body height 162.56 cm [facility] 02-22-2024 13:17-0400 Body mass index (BMI) [Ratio] 36.6 kg/m2 [facility] 02-22-2024 13:17-0400 Body weight 96.78 kg [facility] 02-22-2024 13:17-0400 Diastolic blood pressure 78 mm[Hg] [facility] 02-22-2024 13:17-0400 Heart rate 71 /min [facility] 02-22-2024 13:17-0400 Respiratory rate 18 /min [facility] 02-22-2024 13:17-0400 SaO2% (BldA) [Mass fraction] 98 % [facility] 02-22-2024 13:17-0400 Systolic blood pressure 116 mm[Hg] [facility] 03-01-2020 12:15-0400 BP Diastolic 57 mm[Hg] [place] 03-01-2020 12:15-0400 BP Systolic 98 mm[Hg] [place] 03-01-2020 12:15-0400 Pulse (Heart Rate) 61 /min [place] 03-01-2020 12:15-0400 Pulse Oximetry 100 % [place] 03-01-2020 12:15-0400 Respiratory Rate 14 /min [place] 03-01-2020 09:00-0400 BMI (Body Mass Index) 31.76 kg/m2 [place] 03-01-2020 09:00-0400 Body Temperature 97.9 [degF] [place] 03-01-2020 09:00-0400 Body weight 83.92 kg [place] 03-01-2020 09:00-0400 Height 162.6 cm [place] Encounters Encounter Date Encounter Type Care Provider Facility Start: 01-16-2025 End: 01-16-2025 Bamtemio damaso GREER Work Phone: [facility] Start: 01-16-2025 End: 01-16-2025 Bamboo Hordspotheet Sherita Rodriguez PA Work Phone: [facility] Start: 01-16-2025 End: 01-16-2025 Office outpatient visit 25 minutes Sherita GREER Work Phone: [facility] Comment on above: Brain fog (Primary D x); Neuropathic pain; Migraine without aura and without status migrainosus, not intractable (CMS/HCC); Paresthesia Start: 01-16-2025 End: 01-16-2025 ambulatory SHERITA LOWE Not Available Start: 11-06-2024 End: 11-06-2024 Discharged Recurring Emmie Hill COLLECTION SUPPORT SPECIALIST Work Phone: [facility] - [facility]/P Work Phone: Start: 11-06-2024 End: 11-06-2024 ambulatory Emmie Hill COLLECTION SUPPORT SPECIALIST Work Phone: [facility] Work Phone: Start: 10-31-2024 End: 10-31-2024 Bamboo flowsheet Sherita Lowe PA Work Phone: [facility] Start: 10-31-2024 End: 10-31-2024 Bamboo flowsheet Sherita Lowe PA Work Phone: [facility] Start: 10-31-2024 End: 10-31-2024 Office outpatient visit 25 minutes Sherita Lowe PA Work Phone: [facility] Comment on above: Neuropathic pain (Pr imary Dx); Migraine without aura and without status migrainosus, not intractable (CMS/HCC); Paresthesia; Brain fog; Gait instability; Muscle cramps Start: 10-31-2024 End: 10-31-2024 ambulatory SHERITA LOWE Not Available Start: 09-03-2024 End: 09-10-2024 Telephone encounter Audra Briscoe MA [facility] [address] Start: 08-20-2024 End: 08-20-2024 Telephone encounter Ezequiel Conklin DO Work Phone: Neurology Comment on above: CALL - IMP[employer] TESTING INSTRUCTIONS FOR QSART Start: 07-31-2024 End: 07-31-2024 Orders Only Pippa Real MD Work Phone: Neurology [facility] Comment on above: Paresthesia (Primary Dx) Start: 07-30-2024 End: 07-30-2024 ambulatory PERCY-Jaime PIPER [place] Start: 07-30-2024 End: 07-30-2024 Patient encounter procedure SALONI PIPER [facility] Start: 07-25-2024 End: 07-25-2024 Office outpatient visit 25 minutes Saloni GREER Work Phone: [facility] Comment on above: Migraine without aur a and without status migrainosus, not intractable (CMS/HCC) (Primary Dx); Paresthesia; Hyper reflexia; Vision changes; Muscle cramps Start: 07-25-2024 End: 07-25-2024 ambulatory SALONI PIPER Not Available Start: 07-25-2024 End: 07-25-2024 Bamboo flowsheet Saloni Piper PA Work Phone: [facility] Start: 07-25-2024 [...] 03-14-2024 End: 03-22-2024 Pre-admission assessment SALONI PIPER [facility] Start: 03-14-2024 End: 03-14-2024 ambulatory SALONI PIPER Not Available Start: 03-01-2024 End: 03-01-2024 Patient encounter procedure OMKAR Hill Work Phone: [facility] [place] Work Phone: Start: 03-01-2024 End: 03-01-2024 ambulatory OMKAR Hill Work Phone: [facility] Work Phone: Start: 02-22-2024 End: 02-22-2024 ambulatory [facility] Work Phone: Start: 02-22-2024 End: 02-22-2024 Patient encounter procedure [facility] Work Phone: Start: 01-19-2023 [facility] Facility:H1 Start: 01-11-2023 End: 01-11-2023 [facility] Facility:H1 Start: 12-29-2022 ambulatory Jimmie Ty DDS [facility] Start: 12-18-2022 End: 12-18-2022 [facility] Facility:H1 Start: 11-12-2022 End: 11-13-2022 [facility] Facility:H1 Start: 11-02-2022 End: 11-02-2022 [facility] Facility:H1 Start: 10-22-2022 End: 10-22-2022 [facility] Facility: Start: 09-06-2022 End: 09-06-2022 ambulatory GLENN JIN Facility:H1 Start: 08-05-2022 End: 08-05-2022 ambulatory Mukund Baron Other [facility] Other Start: 08-05-2022 Telephone encounter Mukund Baron [facility] Start: 06-28-2022 End: 06-28-2022 ambulatory NON STAFF [facility] Work Phone: Start: 06-28-2022 End: 06-28-2022 Patient encounter procedure MD Mukund Baron Work Phone: [facility] Start: 06-18-2022 End: 06-18-2022 ambulatory Christopher Mendoza Other [facility] Other Start: 06-18-2022 Telephone encounter Christopher Law ck [facility] Start: 05-17-2022 End: 05-17-2022 [facility] Facility:H1 Start: 05-05-2022 End: 05-06-2022 ambulatory MUKUND BARON Facility:H1 Start: 05-04-2022 End: 05-04-2022 ambulatory Radha Arciniega Other [facility] Other Start: 05-04-2022 Office outpatient vi sit 15 minutes Radha Arciniega [facility] Start: 04-26-2022 End: 04-26-2022 ambulatory Mukund Baron Other [facility] Other Start: 04-26-2022 Office outpatient vi sit 15 minutes Mukund Baron [facility] Start: 04-20-2022 End: 04-20-2022 Patient encounter procedure MD Mukund Baron Work Phone: [facility] [address] Start: 04-16-2022 End: 04-16-2022 ambulatory [facility] Facility:H1 Start: 04-15-2022 Encounter for preprocedural laboratory examination DR CHARLES MARRERO . [facility] Start: 04-13-2022 End: 04-14-2022 Encounter for preprocedural laboratory examination [facility] Facility:H1 Start: 04-13-2022 End: 04-14-2022 ambulatory [facility] Facility:H1 Start: 04-12-2022 End: 04-12-2022 ambulatory Mukund Calixa Other [facility] Other Start: 04-12-2022 Telephone encounter Mukund Baron [facility] Start: 03-23-2022 End: 03-23-2022 ambulatory [facility] Facility:H1 Start: 03-19-2022 [facility] Facility:H1 Start: 03-08-2022 End: 03-08-2022 ambulatory [facility] Facility:H1 Start: 03-01-2022 End: 03-01-2022 ambulatory Mukund Olexa Other [facility] Other Start: 03-01-2022 Office outpatient ne w 45 minutes Mukund Baron [facility] Start: 02-27-2022 End: 02-28-2022 [facility] Facility:H1 Start: 02-23-2022 End: 02-23-2022 [facility] Facility:H1 Start: 03-01-2020 End: 03-01-2020 Emergency department patient visit PRINCESS BUCHANAN [facility] Start: 03-01-2020 End: 03-01-2020 Emergency department patient visit Princess Buchanan Work Phone: [facility] ED Comment on above: Bronchitis [...] Work Phone: Start: 03-01-2020 C-reactive protein Poncho Buchanan Work Phone: Start: 03-01-2020 Comprehensive metabo lic panel Princess Chanel Work Phone: Start: 03-01-2020 Gonadotropin chorion ic qualitative Princess Irenejose arfael Work Phone: Start: 03-01-2020 Lactate dehydrogenase ldh Princess Johnsonjesseniajose rafael Work Phone: Plan of Treatment Date Care Activity Detail Author Start: 01-16-2025 End: 01-16-2025 Patient encounter procedure 01/16/2025 8:40 AM EDT Office Visit [facility] [address] [place] [address] Sherita Rodriguez PA [address] [place], [place] [id number] Arrived [facility] Comment on above: Arrived Start: 11-28-2024 End: 11-28-2024 Patient encounter procedure 11/28/2024 8:20 AM EDT Office Visit [facility] [address] [place] [address] Sherita Rodriguez PA [address] [place], [place] [id number] [facility] Start: 10-31-2024 End: 10-31-2025 MR Brain WO and W contrast IV MR brain w and wo contrast routine Imaging Routine Neuropathic pain Migraine without aura and without status migrainosus, not intractable (CMS/HCC) Expected: 10/31/2024 (Approximate), Expires: 10/31/2025 [facility] Work Phone: Comment on above: Expected: 10/31/2024 (Approximate), Expires: 10/31/2025 Start: 10-31-2024 End: 10-31-2024 Patient encounter procedure 10/31/2024 8:40 AM EST Office Visit [facility] [address] [place] [address] Sherita Rodriguez PA [address] [place], [place] [phone] Lindsay PIERSON Comment on above: Arrived Start: 10-10-2024 End: 10-10-2024 Patient encounter procedure 10/10/2024 12:00 PM EST Office Visit [facility] [address] [address] [place] [address] Sherita Rodriguez PA [address] [place], [place] [phone] [facility] Start: 09-25-2024 End: 09-25-2024 Patient encounter procedure 09/25/2024 3:00 PM EST Office Visit [facility] [place] [address] [place] [address] Louie Chavez MD [address] [place], [place] [address] [facility] [address] Start: 09-10-2024 End: 09-10-2025 MR Brain WO and W contrast IV MR brain w and wo contrast routine Imaging Routine Vision changes Hyper reflexia Expected: 09/10/2024 (Approximate), Expires: 09/10/2025 [facility] Work Phone: Comment on above: Expected: 09/10/2024 (Approximate), Expires: 09/10/2025 Start: 09-10-2024 End: 09-10-2025 MRA Head vessels WO contrast MR angiogram head wo IV contrast Imaging Routine Vision changes Expected: 09/10/2024 (Approximate), Expires: 09/10/2025 [facility] Comment on above: Expected: 09/10/2024 (Approximate), Expires: 09/10/2025 Start: 09-10-2024 End: 09-10-2025 MRA Neck vessels WO contrast MR angiogram neck wo IV contrast Imaging Routine Vision changes Expected: 09/10/2024 (Approximate), Expires: 09/10/2025 [facility] Healthcare Comment on above: Expected: 09/10/2024 (Approximate), Expires: 09/10/2025 Start: 08-30-2024 End: 08-30-2024 ambulatory 08/30/2024 9:15 AM EST Procedure Neurology [address] [place] [address] r OMD QSART Neurology Comment on above: r OMD QSART Start: 07-26-2024 End: 07-26-2025 MISCELLANEOUS REFERRAL MISCELLANEOUS REFERRAL Lab Routine Paresthesia Expected: 07/26/2024 (Approximate), Expires: 07/26/2025 [facility] Healthcare Comment on above: Expected: 07/26/2024 (Approximate), Expires: 07/26/2025 Start: 07-25-2024 End: 07-25-2024 Patient encounter procedure 07/25/2024 2:40 PM EST Office Visit [facility] [address] [place] [address] Saloni Piper PA [address] [place] [address] Arrived [facility] Comment on above: Arrived Start: 07-25-2024 End: 07-25-2025 Aldolase Aldolase Lab Routine Muscle cramps Expected: 07/25/2024 (Approximate), Expires: 07/25/2025 [facility] Healthcare Comment on above: Expected: 07/25/2024 (Approximate), [...] Expected: 07/25/2024 (Approximate), Expires: 07/25/2025 [facility] Work Phone: Comment on above: Expected: 07/25/2024 (Approximate), Expires: 07/25/2025 Start: 07-25-2024 End: 07-25-2025 Folate [Mass/volume] in Serum or Plasma Folate Lab Routine Paresthesia Muscle cramps Expected: 07/25/2024 (Approximate), Expires: 07/25/2025 [facility] Comment on above: Expected: 07/25/2024 (Approximate), Expires: 07/25/2025 Start: 07-25-2024 End: 07-25-2025 Methylmalonate [Moles/volume] in Serum or Plasma Methylmalonic acid, serum Lab Routine Paresthesia Muscle cramps Expected: 07/25/2024 (Approximate), Expires: 07/25/2025 [facility] Comment on above: Expected: 07/25/2024 (Approximate), Expires: 07/25/2025 Start: 07-25-2024 End: 07-25-2025 Myoglobin, serum Myoglobin, serum Lab Routine Muscle cramps Expected: 07/25/2024 (Approximate), Expires: 07/25/2025 [facility] Comment on above: Expected: 07/25/2024 (Approximate), Expires: 07/25/2025 Start: 07-25-2024 End: 07-25-2025 Visual evoked potential test Visual evoked potential test Neurology Routine Vision changes Expected: 07/25/2024 (Approximate), Expires: 07/25/2025 [facility] Comment on above: Expected: 07/25/2024 (Approximate), Expires: 07/25/2025 Start: 07-03-2024 End: 07-03-2024 Patient encounter procedure 07/03/2024 9:30 AM EDT Procedure Visit [facility] [place] [address] [place] [address] Louie Chavez MD [address] [place] [phone] Arrived [facility] [place] [address] Comment on above: Arrived Start: 05-06-2024 Covid-19 Vaccine () Covid-19 Vaccine ( season) [facility] Start: 05-06-2024 Influenza vaccination Influenza Vacc ine (#1) [facility] Start: 05-06-2020 Influenza vaccination Flu vacc ine (Season Ended) [place] Start: 2014 Screening for malign ant neoplasm of cervix [facility] Start: 2005 Screening for malign ant neoplasm of cervix [facility] Start: 2003 DTaP/Tdap/Td vaccine (1 - Tdap) DTaP/Tdap/Td vaccine (1 - Tdap) [place] Start: 2003 Hepatitis B Vaccine (1 of 3 - 19+ 3-dose series) Hepatitis B Vaccine (1 of 3 - 19+ 3-dose series) [facility] Start: 2003 Urine microalbumin profile DTaP,Tdap,Td Vaccine (1 - Tdap) [facility] Start: 2002 Anxiety Screening Anxiety Screening [facility] Start: 2002 Depression Screening Depression Scre ening [facility] Start: 2002 Hepatitis C screening Hepatitis C Sc reening [facility] Start: 2002 HIV screening HIV Screening [facility] Start: 1999 [facility] [place] [place] Start: 1990 Pneumococcal 0-64 ye ars Vaccine (1 of 1 - PPSV23) Pneumococcal 0-64 years Vaccine (1 of 1 - PPSV23) [place] Start: 1985 Varicella vaccine (1 of 2 - 2-dose childhood series) Varicella vaccine (1 of 2 - 2-dose childhood series) [place] EKG 12 Lead EKG 12 Lead ECG STAT 03/01/2020 9:20 AM EDT [place] NEURO QSART NEURO QSART Proc edures Routine Paresthesia Ordered: 07/31/2024 [facility] Work Phone: Comment on above: Ordered: 07/31/2024 Payers Date Payer Category Payer Medicaid [employer] [id number] 2023-Present [phone] [address] [place] [address] Medicaid [id number] 2023 Private Health Insurance [facility] MEDICAID [id number] 2020 Medicaid [facility] [place] [place] [facility] xxxxxxxxxxxx 2020-Present [phone] [address] [address] [place] [address] xxxxxxxxxxxx [id number] [id number] 1984 Unknown [id number] 2.16.840.1.869659.3.579. 2.176 1984 Unknown [id number] 2.16.840.1.767537.3.579. 2.593 1984 Unknown [id number] 2.16.840.1.592997.3.579. 2.593 1984 Unknown [id number] 2.16.840.1.250884.3.579. 2.593 1984 Unknown [id number] 2.16.840.1.966686.3.579. 2.593 1984 Unknown [id number] 2.16.840.1.685518.3.579. 2.593 1984 Unknown [id number] 2.16.840.1.133866.3.579. 2.593 1984 Unknown [id number] 2.16.840.1.007497.3.579. 2.593 1984 Unknown [id number] 2.16.840.1.537727.3.579. 2.593 1984 Unknown [id number] 2.16.840.1.100884.3.579. 2.593 1984 Unknown [id number] 2.16.840.1.480166.3.579. 2.593 1984 Unknown [id number] 2.16.840.1.232477.3.579. 2.593 1984 Unknown [id number] 2.16.840.1.421735.3.579. 2.593 1984 Unknown [id number] 2.16.840.1.708700.3.579. 2.593 1984 Unknown [id number] 2.16.840.1.563147.3.579. 2.593 1984 Unknown [id number] 2.16.840.1.616765.3.579. 2.593 1984 Unknown [id number] 2.16.840.1.005805.3.579. 2.593 1984 Unknown [id number] 2.16.840.1.986643.3.579. 2.593 1984 Unknown [id number] 2.16.840.1.787657.3.579. 2.727 1984 Unknown [id number] 2.16.840.1.035503.3.579. 2.1259 1984 Unknown [id number] 2.16.840.1.846836.3.579. 2.1259 1984 Unknown [id number] 2.16.840.1.242605.3.579. 2.1259 1984 Unknown [id number] 2.16.840.1.719856.3.579. 2.1259 1984 Unknown [id number] 2.16.840.1.270135.3.579. 2.1259 1984 Unknown [id number] 2.16.840.1.514700.3.579. 2.1259 1959 Medicaid [id number] 1959 Self-pay 1959 Unknown [id number] 2.16.840.1.038095.19 1959 Unknown [id number] 1959 Unknown [id number] Unknown [id number] 2.16.840.1.591032.19 Unknown [id number] 2.16.840.1.297148.19 Unknown [id number] 2.16.840.1.092911.3.579. 2.531 Unknown [id number] 2.16.840.1.837572.3.579. 2.531 Worker's Compensation [facility] [id number] Worker's [id number] Social History Date Type Detail Facility Start: 09-05-1997 End: 03-14-2024 Tobacco smoking status MIIS Current every day smoker [facility] Start: 09-05-1997 History of tobacco use Cigarette Smo ker [place] Start: 03-01-2020 Alcohol intake Ex-drinker (finding) [place] Start: 1985 Sex Assigned At Not on file [place] Exposure to SARS-CoV -2 (event) Unable to assess [place] Start: 04-10-2024 End: 10-31-2024 Sex Assigned At [facility] Start: 1985 Sex Assigned At Female F [facility] Start: 02-22-2024 End: 02-22-2024 Tobacco smoking status NHIS Smoker (finding) [facility] Tobacco smoking status No Smokin g Status Entered [facility] Start: 03-14-2024 End: 10-31-2024 Cigarettes smoked current (pack per day) - Reported 0.5 [facility] Start: 03-14-2024 Tobacco use and exposure Smokeless tobacco non-user [facility] Start: 04-10-2024 End: 10-31-2024 Alcoholic beverage intake Lifetime non-drinker (finding) [facility] Start: 12-29-2023 Tobacco Comment Smokes 5 mins after waking up [facility] Start: 12-29-2023 Alcohol Comment caffeine: daily [facility] Tobacco smoking stat us [facility] Tobacco smoking consumption unknown [facility] Start: 11-06-2024 Sex Female (finding) [facility] Clinical Notes 03-01-2022 to 01-16-2025 PERCY Mcdaniel - 01/16/2025 8:40 AM PERCY Carlos - 10/31/2024 8:40 AM ESTTelephone Encounter - PERCY Mcdaniel - 09/10/2024 1:18 PM ESTAddendum Note - Emerita Garcia - 07/31/2024 3:28 PM EST Note Date & Type Note Facility 01-16-2025 History of Presen t illness Narrative Images from the original note were not included. Subjective Lilly Beckham is a 38 year old female No chief complaint on file. Past Medical History: Diagnosis Date Anxiety Asthma (CMS/HCC) Bipolar 1 disorder (CMS/HCC) Borderline personality disorder in adult ([facility]/HCC) Class 2 obesity COPD (chronic obstructive pulmonary disease) (CMS/HCC) Depression, controlled ([facility]/HCC) Eating disorder ([facility]/HCC) GERD (gastroesophageal reflux disease) Insomnia Post-traumatic stress ([facility]) Answers submitted by the patient for this visit: Neurological Problem Questionnaire (Submitted on 10/31/2024) Chief Complaint: Neurologic complaint focal sensory loss: Yes memory loss: Yes near-syncope: Yes focal weakness: Yes Chronicity: chronic Onset: more than 1 year ago Onset quality: gradually Progression since onset: rapidly worsening Focality: left-sided aura: Yes bladder incontinence: Yes bowel incontinence: No vertigo: Yes auditory change: Yes Treatments tried: acetaminophen, bed rest, medication, neck support, position change, sleep Improvement on treatment: no relief Past Surgical History: Procedure Laterality Date APPENDECTOMY SECTION, LOW TRANSVERSE x2 CHOLECYSTECTOMY TUBAL LIGATION Family History Problem Relation Name Age of Onset Depression Mother Migraines Mother Seizures Mother Heart disease Father Depression Father Migraines Father Social History Tobacco Use Smoking status: Every Day Current packs/day: 0.50 Average packs/day: 0.5 packs/day for 27.4 years (13.7 ttl pk-yrs) Types: Cigarettes Start date: 09/05/1997 Smokeless tobacco: Never Tobacco comments: Smokes 5 mins after waking up Substance Use Topics Alcohol use: Never Comment: caffeine: daily HPI MIGRAINES -is on Trileptal -seems to help -migraines have been off and on -last week she had migraine the entire week -notes that she had to quit her job because there are days she cannot get out of bed -she had an excellent response to Depacon/magnesium infusions -she notes that she also responded well to Lyrica start -her symptoms are flaring up -she lost her insurance -duration and severity has been worse -located behind the eyes and left side of head -admits light and sound sensitivity -admits nausea and vomiting -admits some auras and double vision with bad migraines -she states with her migraines left side goes numb -admits brain fog -word finding difficulties -was unable to do her job due to this PARESTHESIA -numbness, tingling, shooting pains located on left side of body -notes that lyrica really helped but then her sx returned -magnesium was helping but not much anymore -described as aching and electrical shocks -states her legs will just jerk out of nowhere -admits weakness in her legs -admits to imbalance -denies any recent falls ROS Review of Systems Constitutional: Positive for fatigue. Negative for activity change, diaphoresis, fever and unexpected weight change. Eyes: Positive for pain and visual disturbance. Respiratory: Negative. Negative for chest tightness. Cardiovascular: Negative for chest pain and palpitations. Gastrointestinal: Positive for nausea and vomiting. Negative for abdominal pain. Genitourinary: Negative for frequency and urgency. Musculoskeletal: Positive for arthralgias and myalgias. Negative for back pain and neck pain. Skin: Negative for color change and pallor. Neurological: Positive for dizziness, speech difficulty, weakness, light-headedness, numbness and headaches. Negative for syncope. Psychiatric/Behavioral: Positive for sleep disturbance. Negative for confusion. Objective Visit Vitals BP 118/80 Ht 5' 4 Wt 209 lb BMI 35.87 kg/m Smoking Status Every Day BSA 2.07 m Neurological Exam Mental Status Awake, alert [...] Crossed adductor present. Positive finger flexors. Coordination [id number], rapid alternating movements and [id number] normal bilaterally without dysmetria. Heart: Regular rate and rhythm Assessment and Plan Migraine Paresthesia Hyper reflexia Vision changes Patient presented with headaches that have been occurring since [...] for abortive therapy. BUE EMG was normal. Visual evokes 07/30/24 were normal. Labwork 07/30/24 revealed normal Ck, myoglobin, B12, adolase. She notes that she had PSG 6-7 years ago and notes that she did not meet criteria for AZEEM. She continues with hypersomnia. She had an excellent response to Depacon/Magnesium infusion for her migraines but they are returning. She notes her Lyrica was beneficial as well initially but her symptoms are now flaring up. Brain MRI with and without contrast 01/10/2024: [...] signal abnormality. BUE EMG 07/03/2024: normal PLAN Qulipta samples given to the patient. Continue Trileptal 300mg 2 tabs PO at bedtime for headache prevention therapy and neuropathic pain Continue Lyrica 50mg PO BID for neuropathic pain. Start Depakote 250mg PO BID for headache prevention . She held off on MRI brain due to self pay status. I counseled the patient on fall precautions. I discussed the high risk of trauma and debility associated with falls. Patient verbalized understanding. She was advised to call for any new or worsening symptoms. Follow up 2 months documented in this encounter [facility] 10-31-2024 History of Presen t illness Narrative Images from the original note were not included. Subjective Lilly Beckham is a 38 year old female Chief Complaint Patient presents with Migraine Past Medical History: Diagnosis Date Anxiety Asthma ([facility]) Bipolar 1 disorder ([facility]) Borderline personality disorder in adult ([facility]) Class 2 obesity COPD (chronic obstructive pulmonary disease) ([facility]) Depression, controlled ([facility]) Eating disorder ([facility]) GERD (gastroesophageal reflux disease) Insomnia Post-traumatic stress ([facility]) Answers submitted by the patient for this visit: Neurological Problem Questionnaire (Submitted on 10/31/2024) Chief Complaint: Neurologic complaint focal sensory loss: Yes memory loss: Yes near-syncope: Yes focal weakness: Yes Chronicity: chronic Onset: more than 1 year ago Onset quality: gradually Progression since onset: rapidly worsening Focality: left-sided aura: Yes bladder incontinence: Yes bowel incontinence: No vertigo: Yes auditory change: Yes Treatments tried: acetaminophen, bed rest, medication, neck support, position change, sleep Improvement on treatment: no relief Past Surgical History: Procedure Laterality Date APPENDECTOMY SECTION, LOW TRANSVERSE x2 CHOLECYSTECTOMY TUBAL LIGATION Family History Problem Relation Name Age of Onset Depression Mother Migraines Mother Seizures Mother Heart disease Father Depression Father Migraines Father Social History Tobacco Use Smoking status: Every Day Current packs/day: 0.50 Average packs/day: 0.5 packs/day for 27.2 years (13.6 ttl pk-yrs) Types: Cigarettes Start date: 09/05/1997 Smokeless tobacco: Never Tobacco comments: Smokes 5 mins after waking up Substance Use Topics Alcohol use: Never Comment: caffeine: daily HPI MIGRAINES -has not had visual evokes done -MRI and MRA ordered but not completed -increased Trileptal at last visit and started Magnesium -migraines have been off and on -state she had a migraine the past 4 days -migraines at least twice a week -duration and severity has been worse -located behind the eyes and left side of head -described as sharp and numb -admits light and sound sensitivity -admits nausea and vomiting -admits some auras and double vision with bad migraines -admits dizziness -described as spinning -she states with her migraines left side goes numb -does not sleep well at night -averages 2 hours a night -does not wake in the morning feeling rested -admits brain fog -word finding difficulties -trouble remembering her job duties PARESTHESIA -QSART testing ordered but she could not due this due to the weather -numbness, tingling, shooting pains located on left side of body -reports symptoms improved for a few weeks -states muscle spasms and cramps and tightening in BLE -magnesium was helping but not much anymore -described as aching and electrical shocks -states her legs will just jerk out of nowhere -admits weakness in her legs -admits to imbalance -denies any recent falls ROS Review of Systems Constitutional: Negative for activity change and unexpected weight change. Eyes: Positive for pain and visual disturbance. Respiratory: Negative. Negative for chest tightness. Genitourinary: Negative for frequency and urgency. Musculoskeletal: Positive for arthralgias and myalgias. Skin: Negative for color change and pallor. Neurological: Positive for speech difficulty and numbness. Psychiatric/Behavioral: Positive for sleep disturbance. Objective Visit Vitals BP 124/84 Ht 5' 4 Wt 213 lb BMI 36.56 kg/m Smoking Status Every Day BSA 2.09 m Neurological Exam Mental Status Awake, alert [...] Crossed adductor present. Positive finger flexors. Coordination Qfdvag-at-makd, rapid alternating movements and nfsl-bk-ihvc normal bilaterally without dysmetria. Heart: Regular rate [...] for abortive therapy. BUE EMG was normal. Visual evokes 07/30/24 were normal. Labwork 07/30/24 revealed normal Ck, myoglobin, B12, adolase. She notes that she had PSG 6-7 years ago and notes that she did not meet criteria for AZEEM. She continues with hypersomnia. Brain MRI with and without contrast 01/10/2024: [...] signal abnormality. BUE EMG 07/03/2024: normal PLAN She will get QSART scheduled. Visual evokes reviewed with the patient. Labwork reviewed with the patient. Qulipta and Ubrelvy samples given to the patient. I will send the order for Depacon/Magnesium infusions for her persistent headache. She does not tolerate prednisone due to agitation. Continue Trileptal 300mg 1/2-1 tab PO QAM and 2 tabs PO at bedtime for headache prevention therapy and neuropathic pain I will order an MRI of the brain to evaluate for intracranial changes such as a tumor, mass, or lesion that would contribute to her symptoms. Consider Cymbalta pending her course. She was advised to call the office for any new or worsening symptoms. Follow up after testing. documented in this encounter [facility] 09-10-2024 Telephone encounter Note Ordered. [facility] 09-10-2024 Miscellaneous Notes Ordered. She is willing to have MRI and MRA done. TB Records reviewed. Patient states that she went into the ER over the weekend with a migraine, loss of vision in her left eye. Numbness in the one side of the body. She states that they did not change her medications. I did schedule her for a sooner appt but she could only go to [place] and will not be coming in until 09/25. She went TB. Is there anything to do in the meantime. I called [facility] and they are faxing records. I did advise that we did not have providers in until and if symptoms became bothersome or concerning go back to the ER. Stated understanding. documented in this encounter [facility] 09-10-2024 Telephone encounter Note She is willing to have MRI and MRA done. [facility] 09-10-2024 Telephone encounter Note Records reviewed. [facility] 09-03-2024 Telephone encounter Note Patient states that she went into the ER over the weekend with a migraine, loss of vision in her left eye. Numbness in the one side of the body. She states that they did not change her medications. I did schedule her for a sooner appt but she could only go to [place] and will not be coming in until 09/25. She went [facility]. Is there anything to do in the meantime. I called [facility] and they are faxing records. I did advise that we did not have providers in until and if symptoms became bothersome or concerning go back to the ER. Stated understanding. [facility] 08-20-2024 Telephone encounter Note Spoke with Lilly [...] medications without consulting their prescribing physician. [facility] recommended the following medication discontinuation [...] to take after the test, if necessary [facility] 08-20-2024 Miscellaneous Notes Spoke with Lilly [...] medications without consulting their prescribing physician. [facility] recommended the following medication discontinuation [...] test, if necessary documented in this encounter [facility] 07-31-2024 Note Addended by: EMERITA GARCIA on: 07/31/2024 03:28 PM Modules accepted: Orders [facility] 07-31-2024 Miscellaneous Notes Addended by: EMERITA GARCIA on: 07/31/2024 03:28 PM Modules accepted: Orders documented in this encounter [facility] 07-25-2024 History of Presen t illness Narrative Subjective Lilly Beckham is a 38 year old female Chief Complaint Patient presents with Migraine Past Medical History: Diagnosis Date Anxiety Asthma ([facility]) Bipolar 1 disorder ([facility]) Borderline personality disorder in adult ([facility]) Class 2 obesity COPD (chronic obstructive pulmonary disease) ([facility]) Depression, controlled ([facility]) Eating disorder ([facility]) GERD (gastroesophageal reflux disease) Insomnia Post-traumatic stress ([facility]) Past Surgical History: Procedure Laterality Date APPENDECTOMY [...] Crossed adductor present. Positive finger flexors. Coordination Nhmdnc-yr-bwhj, rapid alternating movements and msut-kq-xwxe normal bilaterally without dysmetria. Heart: Regular rate [...] effects from medications. documented in this encounter [facility] 03-12-2024 Note HNO ID: [id number] Author: GRANT FARLEY, PhD Service: ? Author Type: Psychologist Type: Progress Notes Filed: 03/12/2024 11:13 Note Text: [facility] Receipt of Outside Records Lilly Beckham [id number] 03/12/2024 On IPW completed 6/20/24, pt endorsed bipolar disorder diagnosis >2 years ago; 2-4 psychotropic medications. Received records via fax (dated 03/06/24) from [facility]. The following information was obtained via [...] ; last hospitalization was in 2011 at [facility] in [place] Hx self-injurious behavior- I used to cut [...] reconsideration. Grant Farley, Ph.D. Clinical Health Psychologist [facility] 06-18-2022 Evaluation note Encounter Date Diagnosis Assessment Notes Jun, Dyspepsia (ICD-10 - R10.13) [facility] 08-30-2022 Evaluation note* Encounter Date Diagnosis Assessment Notes Treatment Notes Treatment Clinical Notes Apr, Sprain of other ligament of left knee, initial encounter (ICD-10 - S83.8X2A) [facility], patient approved for cortisone injections today. Risks and benefits discussed in detail with patient. Patient voiced understanding and agreed to proceed with treatment plan. We performed a 1/1cc marcaine / kenalog cortisone injection into the knee joint under sterile technique. Patient tolerated the injection well without adverse reaction. Patient to continue off work at this time. [facility] 08-22-2022 Evaluation note* Encounter Date Diagnosis [...] We will order formal physical therapy through [facility], as well as cortisone injection to decrease pain/inflammation. Patient to continue off work at this time. [facility] 08-12-2022 NoteOPERATIVE NOTE OPERATION DATE: 04/16/2022 PROCEDURE: Melina endometrial ablation with diagnostic laparoscopy. PREOPERATIVE DIAGNOSIS: Menorrhagia, dyspareunia. POSTOPERATIVE DIAGNOSIS: Menorrhagia, dyspareunia. ANESTHESIA: General. SURGEON: Charles Marrero D.O. COMMUNITY RELATIONS ASSISTANT: ANDIE Jason URINE OUTPUT: Yellow and [...] to Recovery Room in stable condition. [id number]* Encounter Date Diagnosis Assessment Notes Treatment Notes Treatment Clinical Notes Apr, Sprain of other ligament of left knee, initial encounter (ICD-10 - S83.8X2A) [facility] 06-27-2022 Evaluation note* Encounter Date Diagnosis [...] MRI. Patient is to be off work [facility] Other Chief complaint+Reason for visit Narrative* Chief Complaint Self-[place] Reason for Visit Dietary surveillance and counseling Obesity, Class II, BMI 35-39.9 PCOS (polycystic ovarian syndrome) [facility] Work Phone: Chief complaint+Reason for visit Narrative* Chief Complaint Self-[place] r20.2 r29.2 Reason for Visit Dietary surveillance and counseling Obesity, Class II, BMI 35-39.9 PCOS (polycystic ovarian syndrome) [facility] Work Phone: Evaluation + Plan note No data available for this section [facility] assessment information available [facility] Work Phone: Evaluation noteNo InformationN[facility]Kind[facility] [employer] Other Evaluation note* Diagnosis Onset Date Resolution Status Dietary surveillance and counseling acute Obesity, Class II, BMI 35-39.9 acute PCOS (polycystic ovarian syndrome) acute [facility] Work Phone: Evaluation note* Diagnosis Migraine without aura and without status migrainosus, not intractable (CMS/HCC)- Primary Paresthesia Disturbance of skin sensation Hyper reflexia Abnormal reflex Vision changes Muscle cramps documented in this encounter [facility]* Diagnosis Paresthesia- Primary Disturbance of skin sensation [facility] Diagnosis Paresthesia- Primary Disturbance of skin sensation [facility]* Diagnosis Vision changes- Primary Hyper reflexia Abnormal reflex documented in this encounter [facility]* Diagnosis Neuropathic pain- Primary Migraine without aura and without status migrainosus, not intractable (CMS/HCC) Paresthesia Disturbance of skin sensation Brain fog Gait instability Abnormality of gait Muscle cramps documented in this encounter [facility]* Diagnosis Brain fog- Primary Neuropathic pain Migraine without aura and without status migrainosus, not intractable (CMS/HCC) Paresthesia Disturbance of skin sensation documented in this encounter [facility] general Narrative - Reported* Type Description Date Medical History endometriosis Surgical History c-sections x2 Surgical History apendectomy Surgical History hernia removal Hospitalization History see above [facility] Other Hospital Discharge instructions No data available for this section [facility] No data available for this section [facility] Summary Purpose Family History No Family History [...] FoundDocuments on File Type Date 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 * Bronchitis (Belarusian) documented in this encounter Assessments Diagnosis Bronchitis Bronchitis, not specified as acute or chronic Chief Complaint and Reason for Visit Chief Complaint s83.8x2a Dyspepsia Chief Complaint Admit Date MIGRAINES November 06, 2024 1:33 pm Additional Source Comments INFORMATION SOURCE (unrecogn ized section and content) DATE CREATED AUTHOR 03/27/2020 [facility] DATE CREATED AUTHOR AUTHOR'S ORGANIZ ATION 12/31/2022 [facility] DATE CREATED AUTHOR AUTHOR'S ORGANIZ ATION 01/20/2023 [facility] [place] [facility] DATE CREATED AUTHOR AUTHOR'S ORGANIZ ATION 08/06/2024 [facility] DATE CREATED AUTHOR AUTHOR'S ORGANIZ ATION 08/21/2024 [facility] DATE CREATED AUTHOR AUTHOR'S ORGANIZ ATION 11/08/2024 [facility] DATE CREATED AUTHOR AUTHOR'S ORGANIZ ATION 01/17/2025 [facility] EPIC Reason for Visit (unrecogniz ed section and content) Reason Comments Cough pt reports lung pain Abdominal Pain Headache Reason Comments Migraine Reason Comments CALL - IMPORTANT AUTONOMIC TESTING INSTR UCTIONS FOR QSART Reason Comments Migraine Care Teams (unrecognized sec [...] March 01, 2024 End: March 01, 2024 Supervisor Detasseling Crew Relationship Specialty Start Date End Date Charles Marrero DO [address] [place] [address] Dr Devin Christensen, [place] [id number] PCP - [facility] 03/05/24 Supervisor Detasseling Crew Relationship Specialty Start Date End Date Saloni Piper PA [address] [place] [id number] Physician Legal Referee Neurology 07/25/24 Louie Chavez MD [address] [place] [id number] Referring Physician Neurology 07/25/24 Supervisor Detasseling Crew Relationship Specialty Start Date End Date Saloni Piper PA [address] [place] [id number] Physician Legal Referee Neurology 07/25/24 Louie Chavez MD [address] [place] [id number] Referring Physician Neurology 07/25/24 Supervisor Detasseling Crew Relationship Specialty Start Date End Date Saloni Piper PA [address] [place] [phone] Physician Legal Referee Neurology 07/25/24 Louie Chavez MD [address] [place] [phone] Referring Physician Neurology 07/25/24 Supervisor Detasseling Crew Relationship Specialty Start Date End Date Saloni Piper PA [address] [place] [phone] Physician Legal Referee Neurology 07/25/24 Louie Chavez MD [address] [place] [phone] Referring Physician Neurology 07/25/24 Supervisor Detasseling Crew Relationship Specialty Start Date End Date Saloni Pipre PA [address] [place] [phone] Physician Legal Referee Neurology 07/25/24 Louie Chavez MD [address] [place] [phone] Referring Physician Neurology 07/25/24 Team Status: Inactive Member Role Status J Luis Hill APRN Primary Care Provider Active Start: November 06, 2024 End: November 06, 2024 Sherita Rodriguez PA-C Attending Provider, Referring Provider Active Start: November 06, 2024 End: November 06, 2024 Supervisor Detasseling Crew Relationship Specialty Start Date End Date Santo Ryan MD [address] [place] [address] PCP - General Family Medicine 12/17/24 Saloni Piper PA [address] [place] [phone] Physician Legal Referee Neurology 07/25/24 Sherita Rodriguez PA [address] [place] [address] Physician Legal Referee Neurology 12/17/24 Supervisor Detasseling Crew Relationship Specialty Start Date End Date Santo Ryan MD [address] [place] [address] PCP - General Family Medicine 12/17/24 Saloni Piper PA [address] [place] [address] Physician Legal Referee Neurology 07/25/24 Sherita Rodriguez PA [address] [place] [address] Physician Legal Referee Neurology 12/17/24 Goals (unrecognized section and content) Goals may be documented in a n alternate section Source Comments (unrecognize d section and content) In the event this informatio n is protected by the Federal Confidentiality of Alcohol and Drug Abuse Patient Records regulations: The Federal rules restrict any use of the information to criminally investigate or prosecute any alcohol or drug abuse patient.[facility] the event this information is protected by the Federal Confidentiality of Alcohol and Drug Abuse Patient Records regulations: The Federal rules restrict any use of the information to criminally investigate or prosecute any alcohol or drug abuse patient.[facility] the event this information is protected by the Federal Confidentiality of Alcohol and Drug Abuse Patient Records regulations: The Federal rules restrict any use of the information to criminally investigate or prosecute any alcohol or drug abuse patient.[facility] FOR RECORDS PERTAINING TO PATIENTS WHO ARE [...] BE BASED ON THE PRIMARY CLINICAL RECORDS. [facility] [employer] [facility]. provides no warranty or guarantee of the accuracy or completeness of information in this document.
[2025-04-10] MEDS: MORPHINE SULFATE 4 MG/ML VIAL IV (17:52)
[2025-04-10] MEDS: FAMOTIDINE/PF 20 MG/2 ML VIAL 40 MG IV (17:52)
[2025-04-10] MEDS: 0.9 % SODIUM CHLORIDE 1,000 ML 1000 ML IV ×2 (17:52→19:02)
[2025-04-10 18:18] LABS: Hematocrit 37.5 % (36.0-48.0); Hemoglobin 13.1 g/dL (12.0-16.0); Immature Granulocytes Abs Auto 0.03 10^3/uL (0.00-0.03); Immature Granulocytes Pct Auto 0.2 % (0.0-0.5); Lymphocytes Absolute Auto 2.5 10^3/uL (1.2-3.8); Mean Corpuscular HGB Conc 34.9 g/dL (29.9-35.2); Mean Corpuscular Hemoglobin 31.6 pg (26.7-34.0); Mean Corpuscular Volume 90.4 fL (81.0-99.0); Platelet Count 304 10^3/uL (150-450); Red Blood Count 4.15 10^6/uL (4.20-5.40); White Blood Count 12.6 10^3/uL (4.0-11.0)
[2025-04-10 18:40] LABS: Alanine Aminotransferase 25 U/L (14-59); Albumin Globulin Ratio 0.9; Albumin Level 3.4 g/dL (3.4-5.0); Alkaline Phosphatase 72 U/L (46-116); Anion Gap 10.2; Aspartate Amino Transferase 19 U/L (15-37); Blood Urea Nitrogen 17.0 mg/dL (7.0-18.0); Calcium 9.0 mg/dL (8.5-10.1); Carbon Dioxide 27.6 mmol/L (21.0-32.0); Chloride 106 mmol/L (98-107); Estimated GFR (African America >60 (>=60 mL/min/1.73m^2); Estimated GFR (Non-African Ame >60 (>=60 mL/min/1.73m^2); Globulin 3.6 g/dL; Glucose 87 mg/dL (74-106); Lipase 26.0 U/L (16.0-77.0); Potassium 3.8 mmol/L (3.5-5.1); Sodium 140 mmol/L (136-145); Total Protein 7.0 g/dL (6.4-8.2)
[2025-04-10 18:41] LABS: Magnesium 1.6 mg/dL (1.8-2.4)
[2025-04-10 20:09] VITALS: O2SAT 100
[2025-04-10 20:10] VITALS: BP 118/71
== END 2025-04-10 20:13 | disposition home or self-care (01) ==
PROVIDERS: Emergency Provider Student in an Organized Health Care Education/Training Program; PCP Nurse Practitioner
DX: R10.13 Epigastric pain (principal); Z90.49 Acquired absence of other specified parts of digestive tract; Z90.710 Acquired absence of both cervix and uterus; G35 Multiple sclerosis; Z90.79 Acquired absence of other genital organ(s); F17.200 Nicotine dependence, unspecified, uncomplicated
CPT/HCPCS: 36415; 80053; 83690; 83735; 84703; 85025; 96361; 96374; 96375; 99284; J2270; J2405; J3490

== ENCOUNTER 2025-04-22 09:41 | Emergency (ER) | payer OTHER, SELFPAY ==
[2025-04-22 09:49] VITALS: BP 148/91; PULSE 81; TEMP 36.6; O2SAT 98; BMI 35.2
--- OUTSIDE RECORDS SUMMARY | 2025-04-22 09:52 | XMS_ITS | CCD ---
Author Organization [facility] Care Team Providers Care Organizational Development Director Name Role Phone PRINCESS BUCHANAN Attending Unavailable Unavailable Primary Care Provider UnavailMukund Silveira Unavailable Radha Arciniega Unavailable Christopher Mendoza Unavailable MD Mukund Rodriguez Attending Provider NON STAFF Primary Care Provider UnavailMD Christopher Jacobson Attending Provider Jimmie Crawford DDS Attending Unavailable [facility] Unava ilable NEY, DR MARYURI Parker Admitting Unavailabl e REINSETH, DR MARYURI Parker Consulting Unavailabl e NEY, DR MARYURI Parker Attending Unavailabl e [facility] Unava ilable MICHAELA Blanco, KRISHNA Attending Unavailable MICHAELA Blanco, KRISHNA Admitting Unavailable PERCY ELIZABETH Consulting Unavailabl e MICHAELA ., KRISHNA Consulting Unavailable [facility] Unava ilable LOW ESCALANTE Attending Unavailable BORIS, LOW Consulting Unavailable BORIS, LOW Admitting Unavailable [facility] Unava ilable LOW ESCALANTE Attending Unavailable BORIS, LOW Consulting Unavailable BORIS, LOW Admitting Unavailable [facility] Unava ilable AYLIN ., DR EVERETT Admitting Unavailable AYLIN ., DR EVERETT Attending Unavailable AYLIN ., DR EVERETT Consulting Unavailable [facility] Consulting Unava ilable [facility] Unava ilable AYLIN ., DR EVERETT Admitting Unavailable AYLIN ., DR EVERETT Attending Unavailable [facility] Unava ilable HAY ., DR FRIED Consulting Unavailable BORIS, LOW Admitting Unavailable LOW ESCALANTE Attending Unavailable [facility] Unava ilable DIAB ., RENA Attending Unavailable JUDY CONKLIN Consulting Unavailable DIAB ., RENA Admitting Unavailable DIAB ., RENA Consulting Unavailable [facility] Unava ilable GUILLE, DR RANJAN Joyce Admitting Unavailable GUILLE, DR RANJAN Joyce Attending Unavailable GUILLE, DR RANJAN Joyce Consulting Unavailable MARIAM SANCHEZ Consulting Unavailable [facility] Unava ilable AYLIN ., DR EVERETT Attending Unavailable AYLIN ., DR EVERETT Admitting Unavailable [facility] Unava ilable AYLIN ., DR EVERETT Admitting Unavailable AYLIN ., DR EVERETT Attending Unavailable AYLIN ., DR EVERETT Consulting Unavailable AGUBOSIM, AMOS Consulting Unavailable DORKOSKIE, TRACEY Consulting Unavailable [facility] Consulting Unava ilable GLENN JIN Attending Unavailable [facility] Unava ilable GLENN JIN Admitting Unavailable JOVANY, GIULIANO Consulting Unavailable GLENN JIN Consulting Unavailable BRYSONMUKUND PERKINS Consulting Unavailable POLICARO, ESTHER Consulting Unavailable [facility] Unava ilable NADEREIsiah, DR DARIEN Silvestre Consulting Unavailable NADERER, DR DARIEN Silvestre Attending Unavailable NADERER, DR DARIEN Silvestre Admitting Unavailable HAY ., DR FRIED Consulting Unavailable KARLEEPRINCESS KOLB Consulting Unavailable .MEGAN DUGAN Consulting Unavailable OLEXAMUKUND Attending Unavailable OLEXA, MUKUND Admitting Unavailable [facility] Unava ilable [facility] Unava ilable NEY, DR MARYURI Parker Attending Unavailabl e NEY, DR MARYURI Parker Admitting Unavailabl radha BREWSTER, DR MARYURI Parker Consulting Unavailabl radha LIRIANO, DR LOUIE Joyce Consulting Unavailable [facility] Unava ilable NEY, DR MARYURI Parker Attending Unavailabl radha BREWSTER, DR MARYURI Parker Admitting Unavailabl radha BREWSTER, DR MARYURI Parker Consulting Unavailjuan m LYLE, DR SREE Peña Consulting Unavailable [facility] Unava ilable LOW ESCALANTE Attending Unavailable NICOL ., PERCY BROWN Consulting UnavailLOW De Santiago Admitting Unavailable SREE MCCLENDON Consulting Unavailable PATRICIA Piper Attending Provider [phone] Emmie Primary Care Provider Judy SCHULTZ Primary Care Physician [phone] Charles Marrero DO Unavailable Saloni Barton Unavailable Louie Chavez MD Unavailable Unavailable Primary Care Provider Unavailabl e PATRICIA PIPER Referring Unavailable PATRICIA PIPER Attending Unavailable PATRICIA PIPER Admitting Unavailable [facility] Provider Sherita Rodriguez PA-C Attending Provider Sherita Rodriguez PA-C Referring Provider Saloni Piper Attending Un[facility] Saloni Piper Admitting [facility] Unavailable Sherita Rodriguez Admitting Unavailable LowSherita garcia Attending Unavailable Sherita Rodriguez Referring Unavailable Sherita Abernathy Unavailable Santo Ryan MD Primary Care Provider SALONI PIPER Attending Unavailable SALONI PIPER Attending Unavailable LOUIE CHAVEZ Attending Unavailable SALONI PIPER Attending Unavailable SHERITA RODRIGUEZ Attending Unavailable SHERITA RODRIGUEZ Attending Unavailable Liz [facility]At[facility] Provider IliananeSherita joyce APRN Attending Provider Allergies Allergy Classification Reported Allergen(s) Allergy Type Date of Onset Reaction(s) Facility (15 sources) [facility] Allergy [facility] (1 source) [facility]enta[facility] Drug Allergy [facility] (1 source) fentaNYL Drug Allergy 4 [facility] Medications Current Medications Medication Drug Class(es) Dates Sig (Normalized) Sig (Original) Acetaminophen / oxyCODONE (2 sources) Opioid Agonist Percocet Active acetylcholine 10% solution - [facility] (1 source) Start: 07-31-2024 End: 08-01-2024 acetylcholine 10% solution - [facility] Atogepant (Qulipta) 60 MG tablet (13 sources) [...] Start: 04-10-2024 take 1 tablet by rosenda once daily Atogepant (Qulipta) 60 MG tablet [...] inhaler Inhale 2 puffs Daily 11/01/2023 Active cyclobenzaprine hydrochloride 5 mg oral tablet [...] as needed for heartburn 1 tablet Active magnesium oxide 400 mg oral tablet (10 sources) Start: 04-15-2025 take 1 tablet by mouth once daily Magnesium Oxide 400 mg (241.3 mg magnesium) tablet Active 400 MG PO Daily April 15, 2025 12:00am Complies with drug therapy Start: 08-30-2024 take 1 tablet by rosenda th once daily at bedtime magnesium oxide (Mag-Ox) [...] at bedtime 30 tablet 2 07/25/2024 Active naproxen 250 mg oral tablet (4 [...] tablet Active OXcarbazepine 300 mg oral tablet (20 sources) Anti-epileptic Agent Start: 025 take 2 tablets by mouth once daily Oxcarbazepine 300 mg tablet Active 600 MG PO Daily April 15, 2025 4:21pm Complies with drug therapy Start: 11-19-2024 End: 01-16-2025 take 2 tablets [...] 60 tablet 2 04/10/2024 Active Start: 02-22-2024 End: 04-15-2025 take 1 tablet by mouth once daily Oxcarbazepine 300 mg tablet Discontinued 300 MG PO Daily February 22, 2024 12:00am April 15, 2025 4:22pm pantoprazole 20 mg delayed release oral tablet (1 source) Proton Pump Inhibitor Start: 04-15-2025 Pantoprazole 20 mg tablet,delayed release (DR/EC) Active MG PO April 15, 2025 12:00am Complies with drug therapy predniSONE 10 mg oral tablet (1 source) Start: 03-01-2020 End: 03-11-2020 take 4 tablets by mouth once daily predniSONE (DELTASONE) 10 MG tablet Take 4 tablets by mouth once daily for 5 days 20 tablet 0 03/01/2020 03/11/2020 Active pregabalin 50 mg oral capsule (8 sources) Start: 04-15-2025 take 1 capsule by mouth twice daily Pregabalin 50 mg capsule Active 50 MG PO Twice daily April 15, 2025 12:00am Complies with drug therapy Start: 10-31-2024 End: 02-15-2025 take 1 capsule [...] 24 hours. 9 tablet 2 03/14/2024 Active topiramate 100 mg oral tablet (1 source) topiramate (TOPAMAX) 100 MG tablet Take 150 mg by mouth 2 times daily 0 Active traMADol hydrochloride 50 mg oral tablet (2 sources) Opioid Agonist take 1 tablet by mouth every twenty-four hours traMADol HCl 50 MG 1 tablet as needed Orally Once a day Active divalproex sodium 250 mg delayed release oral tablet (2 sources) Mood Stabilizer, Anti-epileptic Agent Start: 01-16-2025 End: 02-15-2025 take 1 tablet by mouth in the morning divalproex (Depakote) 250 MG EC tablet Indications: Migraine without aura and without status migrainosus, not intractable (CMS/HCC) Take 1 tablet (250 mg) by mouth in the morning and 1 tablet (250 mg) before bedtime. Do not crush, chew, or split. 60 tablet 2 01/16/2025 02/15/2025 Active zolpidem tartrate 10 mg oral tablet [...] End: 03-01-2020 acetaminophen (TYLENOL) tablet 1,000 mg [id number] actuat albuterol 0.09 mg/actuat metered dose inhaler (20 sources) beta2-Adrenergic Agonist Start: 02-22-2024 End: 04-15-2025 take 1 puff(s) by inhalation every four to six hours as needed Albuterol Sulfate 90 mcg/actuation HFA aerosol inhaler Discontinued 2 PUFF INHALATION EVERY 4-6 HOURS as needed February 22, 2024 12:00am April 15, 2025 4:21pm albuterol (2.5 M G/3ML) 0.083% nebulizer solution Take 3 mL by nebulization every 6 (six) hours if needed for wheezing Active take 1 puff(s) by in halation every four hours for wheezing albuterol HFA 90 mcg/act inhaler Inhale 1 puff every 4 (four) hours if needed for wheezing Active cariprazine 1.5 mg oral capsule (15 sources) Atypical Antipsychotic Start: 12-20-2023 End: 04-15-2025 take 1 capsule by mouth once daily Cariprazine (Vraylar) 1.5 mg capsule Discontinued 1.5 MG PO Daily February 22, 2024 12:00am April 15, 2025 4:21pm hydrOXYzine pamoate 50 mg oral capsule (15 sources) Antihistamine Start: 02-22-2024 End: 04-15-2025 take 1 capsule by mouth twice daily as needed Hydroxyzine Pamoate 50 mg capsule Discontinued 50 MG PO Twice daily as needed February 22, 2024 12:00am April 15, 2025 4:21pm lamoTRIgine 25 mg oral tablet (15 sources) Mood Stabilizer, Anti-epileptic Agent Start: 02-22-2024 End: 04-15-2025 take 2 tablets by mouth once daily Lamotrigine 25 mg tablet Discontinued 50 MG PO Daily February 22, 2024 12:00am April 15, 2025 4:21pm Start: 02-22-2024 take 50 mg by mouth once daily Lamotrigine Active 50 MG PO Daily February 22, 2024 12:00am Start: 12-23-2023 End: 01-16-2025 take 1 tablet by mouth in the morning lamoTRIgine (LaMICtal) 25 MG tablet Take 25 mg by mouth in the morning and 25 mg before bedtime. 12/23/2023 01/16/2025 Discontinued 24 hr metFORMIN hydrochloride 500 mg extended release oral tablet (6 sources) Biguanide Start: 02-22-2024 End: 04-15-2025 take 1 tablet by mouth once daily Metformin 500 mg tablet extended release 24 hr Discontinued 500 MG PO Daily March 21, 2024 11:38am April 15, 2025 4:21pm SUMAtriptan 50 mg oral tablet (4 sources) Serotonin-1b and Serotonin-1d Receptor Agonist Start: 02-22-2024 End: 04-15-2025 take 1 mg by mouth once as needed Sumatriptan Succinate 50 mg tablet Discontinued MG PO Once as needed February 22, 2024 12:00am April 15, 2025 4:22pm Start: 02-22-2024 take 1 mg by mouth once Sumatr iptan Succinate Active MG PO Once February 22, 2024 12:00am traZODone hydrochloride 100 mg oral tablet (15 sources) Serotonin Reuptake Inhibitor Start: 02-22-2024 End: 04-15-2025 take 1 tablet by mouth once daily at bedtime as needed Trazodone 100 mg tablet Discontinued 100 MG PO Daily at bedtime as needed February 22, 2024 12:00am April 15, 2025 4:22pm triamcinolone acetonide 40 mg/ml injectable suspension (3 sources) Corticosteroid Start: 05-04-2022 Kenalog-40 Apr, 40 mg varenicline 0.5 mg oral tablet (4 sources) Partial Cholinergic Nicotinic Agonist Start: 02-22-2024 End: 04-15-2025 take 1 tablet by mouth twice daily Varenicline Tartrate 0.5 mg tablet Discontinued 0.5 MG PO Twice daily February 22, 2024 12:00am April 15, 2025 4:22pm vortioxetine 10 mg oral tablet (15 sources) Start: 02-22-2024 End: 04-15-2025 take 1 tablet by mouth once daily Vortioxetine (Trintellix) 10 mg tablet Discontinued 10 MG PO Daily February 22, 2024 12:00am April 15, 2025 4:22pm Start: 12-21-2023 take 1 tablet by rosenda th in the morning Trintellix 5 MG tablet Take 1 tablet by mouth in the morning. 12/21/2023 Active Problems Active Problems Problem Classification Problem Date Documented Da te Episodic/Chronic Administrative/social admission (6 sources) Patient encounter status; Translations: [Dietary counseling and surveillance] 02-22-2024 Episodic Anxiety disorders (4 sources) Anxiety; Translations: [Anxiety disorder, unspecified] 02-22-2024 Chronic Asthma (5 sources) Unspecified asthma, uncomplicated; Translations: [Asthma] Onset: [...] W/REG CYCL] Onset: 04-16-2022 Chronic Mood disorders (8 sources) Bipolar disorder; Translations: [Bipolar disorder, unspecified] 02-22-2024 Chronic Nausea and vomiting (3 sources) Nausea with vomiting, unspecified; Translations: [NAUSEA WITH VOMITING UNSPECIFIED] Onset: 10-22-2022 Episodic Other aftercare (1 source) Other terminal gauger (current) drug therapy; Translations: [OTH SEPARATIONS SCIENTIST CURRENT DRUG THERAPY] Onset: 12-21-2022 Episodic Other connective tissue disease (4 sources) Cramp; Translations: [Cramp and spasm] 07-25-2024 Episodic Other connective tissue disease (6 sources) Neuropathic pain; Translations: [Neuralgia and neuritis, unspecified] 10-31-2024 Episodic Other disorders of stomach and duodenum (4 sources) Indigestion; Translations: [Functional dyspepsia] Episodic Other endocrine disorders (4 sources) Polycystic ovary syndrome; Translations: [Polycystic ovarian [...] Episodic Other nutritional; endocrine; and metabolic disorders (4 sources) Obese class II; Translations: [Obesity, unspecified] 02-22-2024 Chronic Other nutritional; endocrine; and metabolic disorders (2 sources) Obesity, unspecified; Translations: [Obesity, unspecified] 02-22-2024 Chronic Other upper respiratory infections (6 sources) Acute upper respiratory infection, unspecified; Translations: [Acute laryngitis] Onset: 11-05-2022 Episodic Personality disorders (4 sources) Personality disorder; Translations: [Personality disorder, unspecified] [...] Test Name Value Interpretation Reference Range Facility [facility] 08-20-2024 VICKY Telephone (BENJI) LILLY BECKHAM ([id number]) 1985 F Date Time Provider Department 08/20/24 [...] without consulting their prescribing physician. [facility] recommended the following medication [...] Encounter Status:Closed by KAREN LONG on 08/20/24 [facility] MR cervical spine wo/w yudi 03-01-2024 MR cervical spine wo/w con [facility] [place] [address] [place] [address] MRI Report Signed Patient: Lilly Beckham MR#: [id number] : 1985 Acct:[id number] Age/Sex: 38 / F ADM Date: 03/01/24 Loc: MR Room: Type: [facility] Attending Dr: Saloni Piper PA-C Copies [...] Ranjan Orourke M.D.03/01/2024 2:54 PM Dictation Location: [place] [address] Transcribed By: [facility] 03/01/24 1454 Dictated By: Ranjan Orourke II, MD 03/01/24 1448 Signed By: 03/01/24 1454 Normal [facility] MR thoracic spine wo/w conon 03-01-2024 MR thoracic spine wo/w con [place] [address] MRI Report Signed Patient: Lilly Beckham MR#: [id number] : 1985 Acct:[id number] Age/Sex: 38 / F ADM Date: 03/01/24 Loc: Room: Type: [facility] Attending Dr: Saloni Piper PA-C Copies [...] Ranjan Orourke M.D.03/01/2024 3:19 PM Dictation Location: [place] [address] Transcribed By: [facility] 03/01/24 1519 Dictated By: Ranjan Orourke II, MD 03/01/24 1516 Signed By: 03/01/24 1519 Normal [facility] XR pre/post mri xrayon 03-01 XR pre/post mri xray [place] [address] XRay Report Signed Patient: Lilly Beckham MR#: [id number] : 1985 Acct:[id number] Age/Sex: 38 / F ADM Date: 03/01/24 Loc: MR Room: Type: [facility] Attending Dr: Saloni Piper PA-C Copies [...] Ranjan Orourke M.D.03/01/2024 3:31 PM Dictation Location: [place] [address] Transcribed By: [facility] 03/01/24 1531 Dictated By: Ranjan Orourke II, MD 03/01/24 1529 Signed By: 03/01/24 1531 Normal [facility] AMYLASEon 01-19-2023 Amylase [Catalytic activity/Vol] 39 U/L Normal 25-115 [facility] Comment on above: Performed By: #### A MY, LIPA, CMP ####[facility] [address] [place], [place] [address]ZfBella Simmons CBC AUTO DIFFon 01-19-2023 BASO # 0.1 103/ul Normal 0.0-0.1 [facility] Comment on above: Performed By: #### C BC ####[facility] [address] [place], [place] [address]ElBella Simmons Basophils/100 WBC (Bld) 0.5 % Normal 0.2-2.0 [facility] Comment on above: Performed By: #### C BC ####[facility] [address] [place] [address]Dr. Nicky Simmons EO # 0.2 103/ul Normal 0.0-0.7 [facility] Comment on above: Performed By: #### C BC ####[facility] [address] [place], [place] [address]Dr. Nicky Simmons Eosinophils/100 WBC (Bld) 1.7 % Normal 0.9-7.0 [facility] Comment on above: Performed By: #### C BC ####[facility] [address] [place], [place] [address]Dr. Nicky Simmons Erythrocyte distribution width (RBC) [Ratio] 13.0 % Normal 11.0-15.0 [facility] Comment on above: Performed By: #### C BC ####[facility] [address] [place], [place] [address]Dr. Nicky Simmons Hematocrit (Bld) [Volume fraction] 39.9 % Normal 36.0-48.0 [facility] Comment on above: Performed By: #### C BC ####[facility] [address] [place], [place] [address]Dr. Nicky Simmons Hemoglobin (Bld) [Mass/Vol] 13.2 g/dL Normal 12.0-16.0 [facility] Comment on above: Performed By: #### C BC ####[facility] [address] [place], [place] [address]Dr. Nicky Simmons IG # 0.05 10e3/ul Critically high 0.00-0.03 [facility] Comment on above: Performed By: #### C BC ####[facility] [address] [place], [place] [address]Dr. Nicky Simmons IG % 0.5 % Normal 0.0-0.5 [facility] Comment on above: Performed By: #### C BC ####[facility] [address] [place], [place] [address]Dr. Nicky Simmons LYMPH # 3.1 103/ul Normal 1.2-3.8 [facility] Comment on above: Performed By: #### C BC ####[facility] [address] [place] [address]DrBella Simmons Lymphocytes/100 WBC (Bld) 28.3 % Normal 20.5-60.0 [facility] Comment on above: Performed By: #### C BC ####[facility] [address] [place] [address]DrBella Simmons MANUAL DIFF REQ NO Normal [facility] Comment on above: Performed By: #### C BC ####[facility] [address] [place] [address]DrBella Simmons MCH (RBC) [Entitic mass] 28.7 pg Normal 26.7-34.0 [facility] Comment on above: Performed By: #### C BC ####[facility] [address] [place], [place] [address]Dr. Nicky Simmons MCHC (RBC) [Mass/Vol] 33.1 g/dL Normal 29.9-35.2 [facility] Comment on above: Performed By: #### C BC ####[facility] [address] [place], [place] [address]DrBella Simmons MCV (RBC) [Entitic vol] 86.7 fL Normal 81.0-99.0 [facility] Comment on above: Performed By: #### C BC ####[facility] [address] [place], [place] [address]DrBella Simmons MONO # 0.6 103/ul Normal 0.3-0.8 [facility] Comment on above: Performed By: #### C BC ####[facility] [address] [place], [place] [address]DrBella Simmons Monocytes/100 WBC (Bld) 5.6 % Normal 1.7-12.0 [facility] Comment on above: Performed By: #### C BC ####[facility] [address] [place], [place] [address]DrBella Simmons NEUT # 7.0 103/ul Critically high 1.4-6.5 [facility] Comment on above: Performed By: #### C BC ####[facility] [address] [place] [address]Dr. Nicky Simmons Neutrophils/100 WBC (Bld) 63.4 % Normal 43.0-75.0 [facility] Comment on above: Performed By: #### C BC ####[facility] [address] [place] [address]Dr. Nicky Simmons Platelet mean volume (Bld) [Entitic vol] 9.0 fL Critically low 9.5-13.5 [facility] Comment on above: Performed By: #### C BC ####[facility] [address] [place] [address]Dr. Nicky Simmons PLT 358 103/ul Normal 150-450 [facility] Comment on above: Performed By: #### C BC ####[facility] [address] [place] [address]Dr. Nicky Simmons RBC 4.60 106/ul Normal 4.20-5.40 [facility] Comment on above: Performed By: #### C BC ####[facility] [address] [place] [address]Dr. Nicky Simmons WBC 11.0 103/ul Normal 4.0-11.0 [facility] Comment on above: Performed By: #### C BC ####[facility] [address] [place] [address]Dr. Nicky Simmons CT ABD/PELV W CONon 01-20-20 [...] DESIR Date: 2023-01-19 13:26 Normal [facility] DRUG SCREEN RAPID (URINE)on 01-19-2023 AMP Negative Normal NEGATIVE [facility] Comment on above: Performed By: #### D RUGRPD ####[facility] [address] [place] [address]Dr. Nicky Simmons BAR Negative Normal NEGATIVE [facility] Comment on above: Performed By: #### D RUGRPD ####[facility] [address] [place] [address]Dr. Nicky Simmons BUP Negative Normal NEGATIVE [facility] Comment on above: Performed By: #### D RUGRPD ####[facility] [address] [place] [address]Dr. Nicky Simmons BZO Negative Normal NEGATIVE [facility] Comment on above: Performed By: #### D RUGRPD ####[facility] [address] [place] [address]Dr. Nicky Simmons DON Negative Normal NEGATIVE [facility] Comment on above: Performed By: #### D RUGRPD ####[facility] [address] [place], [place] [address]Dr. Nicky Simmons CUT-OFFS SEE BELOW Normal [facility] Comment on above: Result Comment: AMP [...] ng/mL Performed By: #### D RUGRPD ####[facility] [address] [place] [address]Dr. uday Simmons DRUG CUT HEADER DRUG CLASS TEST SYSTEM CUT-OFF CONCENTRATIONS ARE FOLLOWS: Normal [facility] Comment on above: Performed By: #### D RUGRPD ####[facility] [address] [place] [address]Dr. Dulceuday Simmons mAMP Negative Normal NEGATIVE [facility] Comment on above: Performed By: #### D RUGRPD ####[facility] [address] [place], [place] [address]Dr. Dulceuday Simmons MTD Negative Normal NEGATIVE [facility] Comment on above: Performed By: #### D RUGRPD ####[facility] [address] [place], [place] [address]Dr. Dulceuday Simmons OPI Positive Abnormal NEGATIVE [facility] Comment on above: Performed By: #### D RUGRPD ####[facility] [address] [place], [place] [address]Dr. Dulceuday Simmons OXY Negative Normal NEGATIVE [facility] Comment on above: Performed By: #### D RUGRPD ####[facility] [address] [place], [place] [address]Dr. Dulceuday Simmons PCP Negative Normal NEGATIVE [facility] Comment on above: Performed By: #### D RUGRPD ####[facility] [address] [place] [address]Dr. Dulceuday Simmons PPX Negative Normal NEGATIVE [facility] Comment on above: Performed By: #### D RUGRPD ####[facility] [address] [place], [place] [address]Dr. Dulceuday Simmons TCA Negative Normal NEGATIVE [facility] Comment on above: Performed By: #### D RUGRPD ####[facility] [address] [place], [place] [address]Dr. Nicky Simmons THC Positive Abnormal NEGATIVE [facility] Comment on above: Performed By: #### D RUGRPD ####[facility] [address] [address]Dr. Nicky Simmons ER URINE PROFILEon 3 Bilirubin Ql (U) Negative Normal NEGATIVE [facility] Comment on above: Performed By: #### C BC #### [facility] [address] [place] [address] Dr. Nicky Simmons Clarity (U) CLEAR Normal CLEAR [facility] Comment on above: Performed By: #### C BC #### [facility] [address] [place] [address] Dr. Nicky Simmons Color (U) LT. YELLOW Normal YELLOW [facility] Comment on above: Performed By: #### C BC #### [facility] [address] [place] [address] Dr. Nicky Simmons ERUISIDRO A micrscopic examination will be performed if indicated. Normal [facility] Comment on above: Performed By: #### C BC #### [facility] [address] [place] [address] Dr. Nicky Simmons Glucose Ql (U) Negative Normal NEGATIVE [facility] Comment on above: Performed By: #### C BC #### [facility] [address] [place] [address] Dr. Nicky Simmons Hemoglobin Ql (U) Negative Normal NEGATIVE [facility] Comment on above: Performed By: #### C BC #### [facility] [address] [place] [address] Dr. Nicky Simmons Ketones Ql (U) Negative Normal NEGATIVE [facility] Comment on above: Performed By: #### C BC #### [facility] [address] [place] [address] Dr. Nicky Simmons LEUKOCYTES SMALL Abnormal NEGATIVE [facility] Comment on above: Performed By: #### C BC #### [facility] [address] [place] [address] Dr. Nicky Simmons Nitrite Ql (U) Negative Normal NEGATIVE [facility] Comment on above: Performed By: #### C BC #### [facility] [address] [address] [address] Nicky Simmons pH (U) 6.5 [pH] Normal 5-9 [facility] Comment on above: Performed By: #### C BC #### [facility] [address] [address] [address] Nicky Simmons SPEC GRAVITY <=1.005 Abnormal 1.005-<=1.025 [facility] Comment on above: Performed By: #### C BC #### [facility] [address] [address] [address] Nicky Simmons UA PROTEIN Negative Normal NEGATIVE/ TRACE [facility] Comment on above: Performed By: #### C BC #### [facility] [address] [place] [address] Dr. Nicky Simmons UR MICRO IND INDICATED Normal [facility] Comment on above: Performed By: #### C BC #### [facility] [address] [place] [address] Dr. Nicky Simmons Urobilinogen Qn (U) 0.2 {Yan'U}/dL Normal 0.2 - 1. 0 [facility] Comment on above: Performed By: #### C BC #### [facility] [address] [place] [address] Dr. Nicky Simmons LIPASEon 01-19-2023 Lipase [Catalytic activity/Vol] 46.0 U/L Critically low 73.0-393.0 [facility] Comment on above: Performed By: #### A ROMÁN GLORIA, CMP ####[facility] [address] [address]Dr. Nicyk Simmons PROF 14(COMP METB)on 023 Albumin [Mass/Vol] 3.1 g/dL Critically low 3.4-5.0 [facility] Comment on above: Performed By: #### A ROMÁN GLORIA, CMP ####[facility] [address] [address]Dr. Nicky Simmons Albumin/Globulin [Mass ratio] 0.8 {ratio} Normal [facility] Comment on above: Performed By: #### A MY, LIPA, CMP ####[facility] [address] [address]Dr. Nicky Simmons ALP [Catalytic activity/Vol] 102 U/L Normal 46-116 [facility] Comment on above: Performed By: #### A MY, LIPA, CMP ####[facility] [address] [address]Dr. Nicky Simmons ALT [Catalytic activity/Vol] 64 U/L Critically high 14-59 [facility] Comment on above: Performed By: #### A MY, LIPA, CMP ####[facility] [address] [place], [place] [address]Dr. Nicky Simmons Anion gap [Moles/Vol] 15.6 mmol/L Normal [facility] Comment on above: Performed By: #### A MY, LIPA, CMP ####[facility] Tx[address] [place], [place] [address]Dr. Dulceuday Simmons AST [Catalytic activity/Vol] 28 U/L Normal 15-37 [facility] Comment on above: Performed By: #### A MY, LIPA, CMP ####[facility] [address] [place], [place] [address]Dr. Nicky Troy Bilirubin [Mass/Vol] 0.4 mg/dL Normal 0.2-1.0 [facility] Comment on above: Performed By: #### A MY, LIPA, CMP ####[facility] [address] [place], [place] [address]Dr. Nicky Simmons Calcium [Mass/Vol] 8.9 mg/dL Normal 8.5-10.1 [facility] Comment on above: Performed By: #### A MY, LIPA, CMP ####[facility] [address] [place], [place] [address]Dr. Nicky Simmons Chloride [Moles/Vol] 105 mmol/L Normal 98-107 [facility] Comment on above: Performed By: #### A MY, LIPA, CMP ####[facility] [address] [place], [place] [address]Dr. Nicky Simmons CO2 [Moles/Vol] 23.0 mmol/L Normal 21.0-32.[address] [facility] Comment on above: Performed By: #### A ROMÁN GLORIA, CMP ####[facility] [address] [address]Dr. Nicky Simmons Creatinine [Mass/Vol] 0.71 mg/dL Normal 0.55-1.02 [facility] Comment on above: Performed By: #### A ROMÁN GLORIA, CMP ####[facility] [address] [place] [address]Dr. Nicky Simmons EGFR-AF MAURITANIAN >60 Normal >=[address] [facility] Comment on above: Performed By: #### A ROMÁN GLORIA, CMP ####[facility] [address] [address]Dr. Nicky Simmons EGFR-NON AF MAURITANIAN >60 Normal >=60 [facility] Comment on above: Performed By: #### A ROMÁN GLORIA, CMP ####[facility] [address] [place] [address] [address]Dr. Nicky Simmons Globulin (S) [Mass/Vol] 4.0 g/dL Normal [facility] Comment on above: Performed By: #### A ROMÁN GLORIA, CMP ####[facility] [address] [address]Dr. Nicky Simmons Glucose [Mass/Vol] 99 mg/dL Normal 74-[address] [facility] Comment on above: Performed By: #### A ROMÁN GLORIA, CMP ####[facility] [address] [place] [address]Dr. Nicky Simmons Potassium [Moles/Vol] 3.6 mmol/L Normal 3.5-5.1 [facility] Comment on above: Performed By: #### A ROMÁN GLORIA, CMP ####[facility] [address] [place] [address] [address]Dr. Nicky Simmons Protein [Mass/Vol] 7.1 g/dL Normal 6.4-8.[address] [facility] Comment on above: Performed By: #### A ROMÁN GLORIA, CMP ####[facility] [address] [place] [address]Dr. Nicky Simmons Sodium [Moles/Vol] 140 mmol/L Normal 136-[address] [facility] Comment on above: Performed By: #### A JUANI LIPA, CMP ####[facility] [address] [place] [address]Dr. Nicky Simmons Urea nitrogen [Mass/Vol] 8.0 mg/dL Normal 7.0-18.0 [facility] Comment on above: Performed By: #### A ROMÁN GLORIA, CMP ####[facility] [address] [address]Dr. Nicky Simmons Urea nitrogen/Creatinine [Mass ratio] 11.3 mg/mg Normal [facility] Comment on above: Performed By: #### A ROMÁN GLORIA, CMP ####[facility] [address] [address]Dr. Nicky Simmons URINE MICROSCOPIC ONLYon BACTERIA TRACE Abnormal NONE SEEN [facility] Comment on above: Performed By: #### C BC #### [facility] [address] [place] [address] Dr. Nicky Simmons Bacteria identified Cx Nom (U) INDICATED Normal [facility] Comment on above: Performed By: #### C BC #### [facility] [address] [place] [address] Dr. Nicky Simmnos CAST NONE SEEN Normal NONE SEEN [facility] Comment on above: Performed By: #### C BC #### [facility] [address] [place] [address] Dr. Nicky Simmons Crystals LM Nom (Urine sed) NONE SEEN Normal NONE SEEN [facility] Comment on above: Performed By: #### C BC #### [facility] [address] [place] [address] Dr. Nicky Simmons Epithelial cells LM Ql (Urine sed) FEW Abnormal NONE SEEN /RARE [facility] Comment on above: Performed By: #### C BC #### [facility] [address] [place] [address] Dr. Nicky Simmons MUCOUS NONE SEEN Normal NONE SEEN [facility] Comment on above: Performed By: #### C BC #### [facility] [address] [place] [address] Dr. Nicky Simmons RBC 0-2 Normal 0-2 [facility] Comment on above: Performed By: #### C BC #### [facility] [address] [place] [address] Dr. Nicky Simmons WBC 2-5 Abnormal NONE SEEN [facility] Comment on above: Performed By: #### C BC #### [facility] [address] [place] [address] Dr. Nicky Simmons XR CHEST 1 Von [...] MCCLENDON Date: 2023-01-11 21:21 Normal [facility] CBC AUTO DIFFon 12-18-2022 BASO # 0.0 103/ul Normal 0.0-0.1 [facility] Comment on above: Performed By: #### C BC #### [facility] [address] [place] [address] Dr. Nicky Simmons Basophils/100 WBC (Bld) 0.3 % Normal 0.2-2.0 [facility] Comment on above: Performed By: #### C BC #### [facility] [address] [place] [address] Dr. Nicky Simmons EO # 0.2 103/ul Normal 0.0-0.7 [facility] Comment on above: Performed By: #### C BC #### [facility] [address] [place] [address] Dr. Nicky Simmons Eosinophils/100 WBC (Bld) 1.4 % Normal 0.9-7.0 [facility] Comment on above: Performed By: #### C BC #### [facility] [address] [place] [address] Dr. Nicky Simmons Erythrocyte distribution width (RBC) [Ratio] 13.0 % Normal 11.0-15.0 [facility] Comment on above: Performed By: #### C BC #### [facility] [address] [place] [address] Dr. Nicky Simmons Hematocrit (Bld) [Volume fraction] 40.3 % Normal 36.0-48.0 [facility] Comment on above: Performed By: #### C BC #### [facility] [address] [place] [address] Dr. Nicky Simmons Hemoglobin (Bld) [Mass/Vol] 13.5 g/dL Normal 12.0-16.0 [facility] Comment on above: Performed By: #### C BC #### [facility] [address] [place] [address] Dr. Nicky Simmons IG # 0.03 10e3/ul Normal 0.00-0.03 [facility] Comment on above: Performed By: #### C BC #### [facility] [address] [place] [address] Dr. Nicky Simmons IG % 0.3 % Normal 0.0-0.5 [facility] Comment on above: Performed By: #### C BC #### [facility] [address] [place] [address] Dr. Nicky Simmons LYMPH # 3.3 103/ul Normal 1.2-3.8 [facility] Comment on above: Performed By: #### C BC #### [facility] [address] [place] [address] Dr. Nicky Simmons Lymphocytes/100 WBC (Bld) 27.9 % Normal 20.5-60.0 [facility] Comment on above: Performed By: #### C BC #### [facility] [address] [place] [address] Dr. Nicky Simmons MANUAL DIFF REQ NO Normal [facility] Comment on above: Performed By: #### C BC #### [facility] [address] [place] [address] Dr. Nicky Simmons MCH (RBC) [Entitic mass] 29.3 pg Normal 26.7-34.0 [facility] Comment on above: Performed By: #### C BC #### [facility] [address] [address] [address] Nicky Simmons MCHC (RBC) [Mass/Vol] 33.5 g/dL Normal 29.9-35.2 [facility] Comment on above: Performed By: #### C BC #### [facility] [address] [address] [address] Nicky Simmons MCV (RBC) [Entitic vol] 87.4 fL Normal 81.0-99.0 [facility] Comment on above: Performed By: #### C BC #### [facility] [address] [place] [address] Dr. Nicky Simmons MONO # 0.7 103/ul Normal 0.3-0.8 [facility] Comment on above: Performed By: #### C BC #### [facility] [address] [place] [address] Dr. Nicky Simmons Monocytes/100 WBC (Bld) 6.0 % Normal 1.7-12.0 [facility] Comment on above: Performed By: #### C BC #### [facility] [address] [place] [address] Dr. Nicky Simmons NEUT # 7.6 103/ul Critically high 1.4-6.5 [facility] Comment on above: Performed By: #### C BC #### [facility] [address] [place] [address] Dr. Nicky Simmons Neutrophils/100 WBC (Bld) 64.1 % Normal 43.0-75.0 [facility] Comment on above: Performed By: #### C BC #### [facility] [address] [place] [address] Dr. Nicky Simmons Platelet mean volume (Bld) [Entitic vol] 9.1 fL Critically low 9.5-13.5 [facility] Comment on above: Performed By: #### C BC #### [facility] [address] [place] [address] Dr. Nicky Simmons PLT 381 103/ul Normal 150-450 [facility] Comment on above: Performed By: #### C BC #### [facility] [address] [place] [address] Dr. Nicky Simmons RBC 4.61 106/ul Normal 4.20-5.40 [facility] Comment on above: Performed By: #### C BC #### [facility] [address] [place] [address] Dr. Nicky Simmons WBC 11.9 103/ul Critically high 4.0-11.0 [facility] Comment on above: Performed By: #### C BC #### [facility] [address] [place] [address] Dr. Nicky Simmons PROTIMEon 12-18-2022 INR Coag (PPP) [Relative time] {INR} Normal [facility] Comment on above: Performed By: #### I NFLUAB #### [facility] [address] [place] [address] Dr. Nicky Simmons INR GUIDELINES SEE BELOW Normal [facility] Comment on above: Result Comment: LEOPOLDO RED INR: 2.0 - 3.0 CONDITIONS NOT LISTED BELOW 2.5 - 3.5 FOR PROSTHETIC HEART VALVE REPLACEMENT 2.5 - 3.5 RECURRENT THROMBOSIS Performed By: #### I NFLUAB #### [facility] [address] [place] [address] Dr. Nicky Simmons PT Coag (PPP) [Time] 9.7 s Normal 9.0-11.6 [facility] Comment on above: Performed By: #### I NFLUAB #### [facility] [address] [place] [address] Dr. Nicky Simmons PTTon 12-18-2022 aPTT Coag (Bld) [Time] 27.9 s Normal 22.3-36.2 [facility] Comment on above: Performed By: #### I NFLUAB #### [facility] [address] [place] [address] Dr. Nicky Simmons Covid-19 PCR ([facility])on 11-03 SARS-CoV-2 (COVID-19) RNA GOKUL+probe Ql (Unsp spec) Not detected Normal NOT DETECTED [facility] Comment on above: Result Comment: When [...] for this test is supported by the [place] of [employer] and Human Service's declaration that [...] Performed By: #### C VDTBH #### [facility] [address] [place] [address] Dr. Nicky Simmons GROUP A STREP CULTUREon 11-03 S. pyogenes Ag Ql (Unsp spec) Culture Observations: NEGATIVE FOR GROUP A STREPTOCOCCUS. Normal [facility] Comment on above: Performed By: #### C BC #### [facility] [address] [place] [address] Dr. Nicky Simmons INFLUENZA A AND B AGon 11-13 INFLUENZA A AG Negative Normal NEGATIVE SEE COMMENT [facility] Comment on above: Performed By: #### I NFLUAB #### [facility] [address] [place] [address] Dr. Nicky Simmons INFLUENZA B AG Negative Normal NEGATIVE SEE COMMENT [facility] Comment on above: Performed By: #### I NFLUAB #### [facility] [address] [place] [address] Dr. Nicky Simmons STREPT SCREENon 11-13-2022 STREP SCREEN A Negative Normal NEGATIVE [facility] Comment on above: Performed By: #### C BC #### [facility] [address] [place] [address] Dr. Nicky Simmons GROUP A STREP CULTUREon 10-07 S. pyogenes Ag Ql (Unsp spec) Culture Observations: NEGATIVE FOR GROUP A STREPTOCOCCUS. Normal [facility] Comment on above: Performed By: #### C BC #### [facility] [address] [place] [address] Dr. Nicky Simmons STREPT SCREENon 11-02-2022 STREP SCREEN A Negative Normal NEGATIVE [facility] Comment on above: Performed By: #### C BC #### [facility] [address] [place] [address] Dr. Nicky Simmons CBC AUTO DIFFon 10-22-2022 BASO # 0.0 103/ul Normal 0.0-0.1 [facility] Comment on above: Performed By: #### C BC #### [facility] [address] [place] [address] Dr. Nicky Simmons Basophils/100 WBC (Bld) 0.3 % Normal 0.2-2.0 [facility] Comment on above: Performed By: #### C BC #### [facility] [address] [place] [address] Dr. Nicky Simmons EO # 0.2 103/ul Normal 0.0-0.7 [facility] Comment on above: Performed By: #### C BC #### [facility] [address] [place] [address] Dr. Nicky Simmons Eosinophils/100 WBC (Bld) 1.2 % Normal 0.9-7.0 [facility] Comment on above: Performed By: #### C BC #### [facility] [address] [place] [address] Dr. Nicky Simmons Erythrocyte distribution width (RBC) [Ratio] 12.9 % Normal 11.0-15.0 [facility] Comment on above: Performed By: #### C BC #### [facility] [address] [place] [address] Dr. Nicky Simmons Hematocrit (Bld) [Volume fraction] 45.3 % Normal 36.0-48.0 [facility] Comment on above: Performed By: #### C BC #### [facility] [address] [place] [address] Dr. Nicky Simmons Hemoglobin (Bld) [Mass/Vol] 15.1 g/dL Normal 12.0-16.0 [facility] Comment on above: Performed By: #### C BC #### [facility] [address] [place] [address] Dr. Nicky Simmons IG # 0.07 10e3/ul Critically high 0.00-0.03 [facility] Comment on above: Performed By: #### C BC #### [facility] [address] [place] [address] Dr. Nicky Simmons IG % 0.4 % Normal 0.0-0.5 [facility] Comment on above: Performed By: #### C BC #### [facility] [address] [place] [address] Dr. Nicky Simmons LYMPH # 1.1 103/ul Critically low 1.2-3.8 [facility] Comment on above: Performed By: #### C BC #### [facility] [address] [place] [address] Dr. Nicky Simmons Lymphocytes/100 WBC (Bld) 7.1 % Critically low 20.5-60.0 [facility] Comment on above: Performed By: #### C BC #### [facility] [address] [place] [address] Dr. Nicky Simmons MANUAL DIFF REQ NO Normal [facility] Comment on above: Performed By: #### C BC #### [facility] [address] [place] [address] Dr. Nicky Simmons MCH (RBC) [Entitic mass] 28.8 pg Normal 26.7-34.0 [facility] Comment on above: Performed By: #### C BC #### [facility] [address] [place] [address] Dr. Nicky Simmons MCHC (RBC) [Mass/Vol] 33.3 g/dL Normal 29.9-35.2 [facility] Comment on above: Performed By: #### C BC #### [facility] [address] [address] [address] Nicky Simmons MCV (RBC) [Entitic vol] 86.3 fL Normal 81.0-99.0 [facility] Comment on above: Performed By: #### C BC #### [facility] [address] [address] [address] Nicky Simmons MONO # 0.4 103/ul Normal 0.3-0.8 [facility] Comment on above: Performed By: #### C BC #### [facility] [address] [place] [address] Dr. Nicky Simmons Monocytes/100 WBC (Bld) 2.6 % Normal 1.7-12.0 [facility] Comment on above: Performed By: #### C BC #### [facility] [address] [place] [address] Dr. Nicky Simmons NEUT # 14.0 103/ul Critically high 1.4-6.5 [facility] Comment on above: Performed By: #### C BC #### [facility] [address] [place] [address] Dr. Nicky Simmons Neutrophils/100 WBC (Bld) 88.4 % Critically high 43.0-75.0 [facility] Comment on above: Performed By: #### C BC #### [facility] [address] [place] [address] Dr. Nicky Simmons Platelet mean volume (Bld) [Entitic vol] 9.4 fL Critically low 9.5-13.5 [facility] Comment on above: Performed By: #### C BC #### [facility] [address] [place] [address] Dr. Nicky Simmons PLT 399 103/ul Normal 150-450 [facility] Comment on above: Performed By: #### C BC #### [facility] [address] [place] [address] Dr. Nicky Simmons RBC 5.25 106/ul Normal 4.20-5.40 [facility] Comment on above: Performed By: #### C BC #### [facility] [address] [place], [place] [id number] Dr. Nicky Simmons WBC 15.9 103/ul Critically high 4.0-11.[address] [facility] Comment on above: Performed By: #### C BC #### [facility] [address] [place], [place] [address] ABD/PELVIS WO CONon [...] CONKLIN Date: 2022-10-22 00:08 Normal [facility] ER URINE PROFILEon 3 Bilirubin Ql (U) SMALL Abnormal NEGATIVE [facility] Comment on above: Performed By: #### E RUR, PREGU ####[facility] [address] [place], [place] [address]Dr. Nicky Simmons Clarity (U) CLEAR Normal CLEAR [facility] Comment on above: Performed By: #### E RUR, PREGU ####[facility] [address] [place], [place] [address]Dr. Nicky Simmons Color (U) DK. YELLOW Normal YELLOW [facility] Comment on above: Performed By: #### E RUR, PREGU ####[facility] [address] [place], [place] [address]Dr. Nicky Simmons ERUAHD A micrscopic examination will be performed if indicated. Normal [facility] Comment on above: Performed By: #### E RUR, PREGU ####[facility] [address] [place], [place] [address]Dr. Nicky Simmons Glucose Ql (U) Negative Normal NEGATIVE [facility] Comment on above: Performed By: #### E RUR, PREGU ####[facility] [address] [place], [place] [address]Dr. Nicky Simmons Hemoglobin Ql (U) Negative Normal NEGATIVE [facility] Comment on above: Performed By: #### E RUR, PREGU ####[facility] [address] [place], [place] [address]Dr. Nicky Simmons Ketones Ql (U) 15 mg/dl Abnormal NEGATIVE [facility] Comment on above: Performed By: #### E RUR, PREGU ####[facility] [address] [place], [place] [address]Dr. Nicky Simmons LEUKOCYTES Negative Normal NEGATIVE [facility] Comment on above: Performed By: #### E RUR, PREGU ####[facility] [address] [place], [place] [address]Dr. Nicky Simmons Nitrite Ql (U) Negative Normal NEGATIVE [facility] Comment on above: Performed By: #### E RUR, PREGU ####[facility] [id number] [address] [place], [place] [address]Dr. Nicky Simmons pH (U) 5.0 [pH] Normal 5-9 [facility] Comment on above: Performed By: #### E RUR, PREGU ####[facility] Kwncvrellz[address] [place], [place] [address]Dr. Nicky Simmons SPEC GRAVITY >=1.030 Abnormal 1.005-<=1.025 [facility] Comment on above: Performed By: #### E RUR, PREGU ####[facility] Fryxqvpvqq99[address] [place], [place] [address]Dr. Nicky Simmons UA PROTEIN TRACE Normal NEGATIVE/ TRACE [facility] Comment on above: Performed By: #### E RUR, PREGU ####[facility] [address] [place], [place] [address]Dr. Nicky Simmons UR MICRO IND NOT INDICATED Normal [facility] Comment on above: Performed By: #### E RUR, PREGU ####[facility] Fcwztbtosj65[address] [place], [place] [address]Dr. Nicky Simmons Urobilinogen Qn (U) 0.2 {Yan'U}/dL Normal 0.2 - 1. 0 [facility] Comment on above: Performed By: #### E RUR, PREGU ####[facility] Ge[address] [place], [place] [address]Dr. Nicky Simmons LIPASEon 10-22-2022 Lipase [Catalytic activity/Vol] 56.0 U/L Critically low 73.0-393.0 [facility] Comment on above: Performed By: #### L IPA ####[facility] Dybkbeqnm[address] [place], [place] [address]Dr. Nicky Simmons PREG HCG QUALon 10-22-2022 , QUAL Negative Normal NEGATIVE [facility] Comment on above: Performed By: #### P REG ####[facility] Wjhs[address]rehw4[address] [place], [place] [address]Dr. Nicky Simmons URon 10-22-2022 , QUAL Negative Normal NEGATIVE [facility] Comment on above: Performed By: #### E RUR, PREGU ####[facility] Djzsuf[address] [place], [place] [address]Dr. Nicky Simmons PROF 14(COMP METB)on 023 Albumin [Mass/Vol] 3.7 g/dL Normal 3.4-5.0 [facility] Comment on above: Performed By: #### I NFLUAB #### [facility] [address] [place] [address] Dr. Nicky Simmons Albumin/Globulin [Mass ratio] 0.9 {ratio} Normal [facility] Comment on above: Performed By: #### I NFLUAB #### [facility] [address] [place] [address] Dr. Nicky Simmons ALP [Catalytic activity/Vol] 128 U/L Critically high 46-116 [facility] Comment on above: Performed By: #### I NFLUAB #### [facility] [address] [place] [address] Dr. Nicky Simmons ALT [Catalytic activity/Vol] 38 U/L Normal 14-59 [facility] Comment on above: Performed By: #### I NFLUAB #### [facility] [address] [place] [address] Dr. Nicky Simmons Anion gap [Moles/Vol] 17.1 mmol/L Normal [facility] Comment on above: Performed By: #### I NFLUAB #### [facility] [address] [place] [address] Dr. Nicky Simmons AST [Catalytic activity/Vol] 27 U/L Normal 15-37 [facility] Comment on above: Performed By: #### I NFLUAB #### [facility] [address] [place] [address] Dr. Nicky Simmons Bilirubin [Mass/Vol] 0.5 mg/dL Normal 0.2-1.0 [facility] Comment on above: Performed By: #### I NFLUAB #### [facility] [address] [place] [address] Dr. Nicky Simmons Calcium [Mass/Vol] 8.9 mg/dL Normal 8.5-10.[address] [facility] Comment on above: Performed By: #### I NFLUAB #### [facility] [address] [place] [address] Dr. Nicky Simmons Chloride [Moles/Vol] 102 mmol/L Normal 98-107 [facility] Comment on above: Performed By: #### I NFLUAB #### [facility] [address] [address] [address] Nicky Simmons CO2 [Moles/Vol] 21.9 mmol/L Normal 21.0-32.0 [facility] Comment on above: Performed By: #### I NFLUAB #### [facility] [address] [address] [address] Nicky Simmons Creatinine [Mass/Vol] 0.77 mg/dL Normal 0.55-1.02 [facility] Comment on above: Performed By: #### I NFLUAB #### [facility] [address] [place] [address] Dr. Nicky Simmons EGFR-AF MAURITANIAN >60 Normal >=60 [facility] Comment on above: Performed By: #### I NFLUAB #### [facility] [address] [address] [address] Nicky Simmons EGFR-NON AF MAURITANIAN >60 Normal >=60 [facility] Comment on above: Performed By: #### I NFLUAB #### [facility] [address] [place] [address] Dr. Nicky Simmons Globulin (S) [Mass/Vol] 3.9 g/dL Normal [facility] Comment on above: Performed By: #### I NFLUAB #### [facility] [address] [address] [address] Nicky Simmons Glucose [Mass/Vol] 105 mg/dL Normal 74-106 [facility] Comment on above: Performed By: #### I NFLUAB #### [facility] [address] [address] [address] Nicky Simmons Potassium [Moles/Vol] 4.0 mmol/L Normal 3.5-5.1 [facility] Comment on above: Performed By: #### I NFLUAB #### [facility] [address] [address] [address] Nicky Simmons Protein [Mass/Vol] 7.6 g/dL Normal 6.4-8.2 [facility] Comment on above: Performed By: #### I NFLUAB #### [facility] [address] [address] [address] Nicky Simmons Sodium [Moles/Vol] 137 mmol/L Normal 136-[address] [facility] Comment on above: Performed By: #### I NFLUAB #### [facility] [address] [address] [address] Nicky Simmons Urea nitrogen [Mass/Vol] 12.0 mg/dL Normal 7.0-18.0 [facility] Comment on above: Performed By: #### I NFLUAB #### [facility] [address] [place] [address] Dr. Nicky Simmons Urea nitrogen/Creatinine [Mass ratio] 15.6 mg/mg Normal [facility] Comment on above: Performed By: #### I NFLUAB #### [facility] [address] [address] [address] Nicky Simmons CBC AUTO DIFFon 09-06-2022 BASO # 0.1 103/ul Normal 0.0-0.1 [facility] Comment on above: Performed By: #### C BC ####[facility] [address] [address]DrBella Simmons Basophils/100 WBC (Bld) 0.5 % Normal 0.2-2.0 [facility] Comment on above: Performed By: #### C BC ####[facility] [address] [address]DrBella Simmons EO # 0.3 103/ul Normal 0.0-0.7 [facility] Comment on above: Performed By: #### C BC ####[facility] [address] [address]DrBella Simmons Eosinophils/100 WBC (Bld) 2.4 % Normal 0.9-7.0 [facility] Comment on above: Performed By: #### C BC ####[facility] [address] [address]DrBella Simmons Erythrocyte distribution width (RBC) [Ratio] 12.7 % Normal 11.0-15.0 [facility] Comment on above: Performed By: #### C BC ####[facility] [address] [address]Dr. Nicky Simmons Hematocrit (Bld) [Volume fraction] 37.5 % Normal 36.0-48.0 [facility] Comment on above: Performed By: #### C BC ####[facility] [address] [address]Dr. Nicky Simmons Hemoglobin (Bld) [Mass/Vol] 12.6 g/dL Normal 12.0-16.0 [facility] Comment on above: Performed By: #### C BC ####[facility] [address] [place], [place] [address]Dr. Nicky Simmons IG # 0.05 10e3/ul Critically high 0.00-0.03 [facility] Comment on above: Performed By: #### C BC ####[facility] Ixipfrvq[address] [place], [place] [address]Dr. Nicky Troy IG % 0.4 % Normal 0.0-0.5 [facility] Comment on above: Performed By: #### C BC ####[facility] [address]ylsfippn[address] [place], [place] [address]Dr. Dulceuday Troy LYMPH # 2.9 103/ul Normal 1.2-3.8 [facility] Comment on above: Performed By: #### C BC ####[facility] S[address]wrwrqvn[address] [place], [place] [address]Dr. Dulceuday Simmons Lymphocytes/100 WBC (Bld) 25.2 % Normal 20.5-60.0 [facility] Comment on above: Performed By: #### C BC ####[facility] Felkw[address] [place], [place] [address]Dr. Nicky Simmons MANUAL DIFF REQ NO Normal [facility] Comment on above: Performed By: #### C BC ####[facility] [address] [place], [place] [address]Dr. Nicky Simmons MCH (RBC) [Entitic mass] 29.4 pg Normal 26.7-34.0 [facility] Comment on above: Performed By: #### C BC ####[facility] [address] [address]Dr. Nicky Simmons MCHC (RBC) [Mass/Vol] 33.6 g/dL Normal 29.9-35.2 [facility] Comment on above: Performed By: #### C BC ####[facility] [address] [place], [place] [address]Dr. Dulceuday Simmons MCV (RBC) [Entitic vol] 87.4 fL Normal 81.0-99.0 [facility] Comment on above: Performed By: #### C BC ####[facility] Pa[address] [place], [place] [address]Dr. Nicky Simmons MONO # 0.7 103/ul Normal 0.3-0.8 [facility] Comment on above: Performed By: #### C BC ####[facility] Lofuc[address] [place], [place] [address]Dr. Nicky Simmons Monocytes/100 WBC (Bld) 6.4 % Normal 1.7-12.0 [facility] Comment on above: Performed By: #### C BC ####[facility] R[address]ch[address] [place], [place] [address]Dr. Dulceuday Troy NEUT # 7.5 103/ul Critically high 1.4-6.5 [facility] Comment on above: Performed By: #### C BC ####[facility] [address] [place], [place] [address]Dr. Nicky Simmons Neutrophils/100 WBC (Bld) 65.1 % Normal 43.0-75.0 [facility] Comment on above: Performed By: #### C BC ####[facility] Rybe[address]pc[address] [place], [place] [address]Dr. Nicky Simmons Platelet mean volume (Bld) [Entitic vol] 9.1 fL Critically low 9.5-13.5 [facility] Comment on above: Performed By: #### C BC ####[facility] [address] [place], [place] [address]Xr. Nicky Simmons PLT 380 103/ul Normal 150-450 [facility] Comment on above: Performed By: #### C BC ####[facility] [address] [place], [place] [address]Xx. Nicky Simmons RBC 4.29 106/ul Normal 4.20-5.40 [facility] Comment on above: Performed By: #### C BC ####[facility] [address] [place], [place] [address]Cj. Nicky Simmons WBC 11.5 103/ul Critically high 4.0-11.[address] [facility] Comment on above: Performed By: #### C BC ####[facility] [address] [place], [place] [address]Lw. Nicky Simmons CTA CHEST WO W CONon [...] MASSEY Date: 2022-09-06 19:34 Normal [facility] Covid-19 PCR (CVDTB)on SARS-CoV-2 (COVID-19) RNA GOKUL+probe Ql (Unsp spec) Not detected Normal NOT DETECTED [facility] Comment on above: Result Comment: This test is not yet approved or cleared by the [place] FDA. When there are no FDA-approved or cleared tests available, and other criteria are met, FDA can make tests available under an emergency access mechanism called an Emergency Use Authorization (EUA). The EUA for this test is supported by the Systems [employer] of Health and Human Service's (HHS's) declaration [...] SARS-CoV-2. Performed By: #### C VDTBH ####[facility] [address] [place], [place] [address]Dr. Nicky Simmons D-DIMERon 09-06-2022 D-DIMER 0.62 mg/L FEU Critically high <=0.[address] [facility] Comment on above: Performed By: #### D DIM ####[facility] [address] [place], [place] [address]Dr. Nicky Simmons D-DIMER COMMENTS SEE BELOW Normal [facility] Comment on above: Result Comment: Incr [...] hospitalization. Performed By: #### D DIM ####[facility] [address] [place], [place] [address]DrBella Simmons INFLUENZA A AND B AGon 09-06 INFLUANEGH SEE BELOW Normal [facility] Comment on above: Result Comment: Nega tive for Flu A protein angiten. Infection due to Flu A cannot be ruled out. Flu A angiten in the sample may be below the detection limit of the test. Performed By: #### C BC #### [facility] [address] [place] [address] Dr. Nicky Simmons [facility] SEE BELOW Normal [facility] Comment on above: Result Comment: Nega tive for Flu B protein antigen. Infection due to Flu B cannot be ruled out. Flu B antigen in the sample may be below the detection limit of the test. Performed By: #### C BC #### [facility] [address] [place] [address] Dr. Nicky Simmons INFLUENZA A AG Negative Normal NEGATIVE SEE COMMENT [facility] Comment on above: Performed By: #### C BC #### [facility] [address] [place] [address] Dr. Nicky Simmons INFLUENZA B AG Negative Normal NEGATIVE SEE COMMENT [facility] Comment on above: Performed By: #### C BC #### [facility] [address] [place] [address] Dr. Nicky Simmons PROF CHEM 8 (BAS METB)on Anion gap [Moles/Vol] 12.7 mmol/L Normal [facility] Comment on above: Performed By: #### I NFLUAB #### [facility] [address] [place] [address] Dr. Nicky Simmons Calcium [Mass/Vol] 8.6 mg/dL Normal 8.5-10.1 [facility] Comment on above: Performed By: #### I NFLUAB #### [facility] [address] [place] [address] Dr. Nicky Simmons Chloride [Moles/Vol] 103 mmol/L Normal 98-107 [facility] Comment on above: Performed By: #### I NFLUAB #### [facility] [address] [place] [address] Dr. Nicky Simmons CO2 [Moles/Vol] 24.9 mmol/L Normal 21.0-32.0 [facility] Comment on above: Performed By: #### I NFLUAB #### [facility] [address] [address] [address] Nicky Simmons Creatinine [Mass/Vol] 0.86 mg/dL Normal 0.55-1.02 [facility] Comment on above: Performed By: #### I NFLUAB #### [facility] [address] [address] [address] Nicky Simmons EGFR-AF MAURITANIAN >60 Normal >=60 [facility] Comment on above: Performed By: #### I NFLUAB #### [facility] [address] [address] [address] Nicky Simmons EGFR-NON AF MAURITANIAN >60 Normal >=60 [facility] Comment on above: Performed By: #### I NFLUAB #### [facility] [address] [address] [address] Nicky Simmons Glucose [Mass/Vol] 113 mg/dL Critically high 74-106 [facility] Comment on above: Performed By: #### I NFLUAB #### [facility] [address] [address] [address] Nicky Simmons Potassium [Moles/Vol] 3.6 mmol/L Normal 3.5-5.1 [facility] Comment on above: Performed By: #### I NFLUAB #### [facility] [address] [address] [address] Nicky Simmons Sodium [Moles/Vol] 137 mmol/L Normal 136-145 [facility] Comment on above: Performed By: #### I NFLUAB #### [facility] [address] [address] [address] Nicky Simmons Urea nitrogen [Mass/Vol] 9.0 mg/dL Normal 7.0-18.0 [facility] Comment on above: Performed By: #### I NFLUAB #### [facility] [address] [address] [address] Nicky Simmons Urea nitrogen/Creatinine [Mass ratio] 10.5 mg/mg Normal [facility] Comment on above: Performed By: #### I NFLUAB #### [facility] [address] [place], [place] [address] Dr. Nicky Simmons XR CHEST 1 Von 09-06-2022 XR CHEST 1 V CHEST X-RAY, 1 VIEW HISTORY: Cough. COMPARISON: 05/17/2022. FINDINGS: The heart, angel, and mediastinum are unremarkable. The lungs are grossly clear. There are no pleural effusions. There is no pneumothorax. IMPRESSION: No evidence of acute cardiopulmonary disease. Electronically authenticated by: ESTHER MARY Date: 2022-09-06 18:22 Normal [facility] COVID-19 Positive/NegativeOr dered By: Christopher Mendoza on 06-28-2022 SARS-CoV-2 (COVID-19) N gene GOKUL+probe Ql (Resp) Negative Negative [facility] Comment on above: Testing for SARS-CoV -2 by RT-PCRThis test was developed and its performance characteristics determined by [employer] ([employer]) and validated at the [facility]. This test has not been FDA [...] FOR GROUP A STREPTOCOCCUS. Normal [facility] Comment on above: Performed By: #### S SCRN, GRASTCX #### [facility] [address] [place], [place] [address] Dr. Nicky Simmons INFLUENZA A AND B AGon 05-17 INFLUENZA A AG Negative Normal NEGATIVE SEE COMMENT [facility] Comment on above: Performed By: #### C BC #### [facility] [address] [address] [address] Nicky Simmons INFLUENZA B AG Negative Normal NEGATIVE SEE COMMENT [facility] Comment on above: Performed By: #### C BC #### [facility] [address] [address] [address] Nicky Simmons INTERNAL CONTROLS Within Normal Limits Normal Wi thin Normal Limits [facility] Comment on above: Performed By: #### C BC #### [facility] [address] [address] [address] Nikcy Simmons RESPIRATORY PANEL PLUSon Adenovirus Not detected Normal NOT DETECTED [facility] Comment on above: Performed By: #### R SPLUS ####[facility] Uoeceellfj[address] [place], [place] [address]Dr. Nicky Simmons B. Parapertusis Not detected Normal NOT DETECTED [facility] Comment on above: Performed By: #### R SPLUS ####[facility] [address] [place], [place] [address]Dr. Nicky Simmons B. Pertussis Not detected Normal NOT DETECTED [facility] Comment on above: Performed By: #### R SPLUS ####[facility] M[address]pullasy[address] [place], [place] [address]Dr. Nicky iSmmons Chlamydia Pneumoniae Not detected Normal NOT DETECTED [facility] Comment on above: Performed By: #### R SPLUS ####[facility] [address]ufh[address]fe[address] [place], [place] [address]Dr. Nicky Simmons Coronavirus 229E Not detected Normal NOT DETECTED [facility] Comment on above: Performed By: #### R SPLUS ####[facility] [address] [address]Dr. Nicky Simmons Coronavirus HKU1 Not detected Normal NOT DETECTED [facility] Comment on above: Performed By: #### R SPLUS ####[facility] [address]truxjlhva[address] [place], [place] [address]Dr. Nicky Simmons Coronavirus NL63 Not detected Normal NOT DETECTED [facility] Comment on above: Performed By: #### R SPLUS ####[facility] [address] [address]Dr. Nicky Simmons Coronavirus OC43 Not detected Normal NOT DETECTED [facility] Comment on above: Performed By: #### R SPLUS ####[facility] [address] [address]Dr. Nicky Simmons Influenza A H1 2009 Not detected Normal NOT DETECTED [facility] Comment on above: Performed By: #### R SPLUS ####[facility] [address]st[address] [place], [place] [address]Dr. Nicky Simmons Influenza A H3 Not detected Normal NOT DETECTED [facility] Comment on above: Performed By: #### R SPLUS ####[facility] [address]ktnjj[address] [place], [place] [address]Dr. Nicky Simmons Influenza B Not detected Normal NOT DETECTED [facility] Comment on above: Performed By: #### R SPLUS ####[facility] M[address]ialbeyn[address] [place], [place] [address]Dr. Nicky Simmons Metapneumovirus Not detected Normal NOT DETECTED [facility] Comment on above: Performed By: #### R SPLUS ####[facility] [address]vrgsvg[address] [place], [place] [address]Dr. Nicky Simmons Mycoplas. Pneumoniae Not detected Normal NOT DETECTED [facility] Comment on above: Performed By: #### R SPLUS ####[facility] [address] [place], [place] [address]Dr. Nicky Simmons Parainfluenza 1 Not detected Normal NOT DETECTED [facility] Comment on above: Performed By: #### R SPLUS ####[facility] Iv[address]xbce[address] [place], [place] [address]Dr. Yiuday Simmons Parainfluenza 2 Not detected Normal NOT DETECTED [facility] Comment on above: Performed By: #### R SPLUS ####[facility] [address]wwjl[address] [place], [place] [address]Dr. uday Simmons Parainfluenza 3 Not detected Normal NOT DETECTED [facility] Comment on above: Performed By: #### R SPLUS ####[facility] [address] [address]Dr. Dulceuday Simmons Parainfluenza 4 Not detected Normal NOT DETECTED [facility] Comment on above: Performed By: #### R SPLUS ####[facility] [address] [address]Dr. Nicky Simmons Rhino/Enterovirus Detected Abnormal NOT DETECTED [facility] Comment on above: Performed By: #### R SPLUS ####[facility] Az[address] [place], [place] [address]Dr. Nicky Simmons RP2 Header 1 RESPIRATORY PANEL: VIRUSES Normal [facility] Comment on above: Performed By: #### R SPLUS ####[facility] [address] [address]Dr. Nicky Simmons RP2 Header 2 RESPIRATORY PANEL: BACTERIA Normal [facility] Comment on above: Performed By: #### R SPLUS ####[facility] [address] [place], [place] [address]Dr. Nicky Simmons RSV Not detected Normal NOT DETECTED [facility] Comment on above: Performed By: #### R SPLUS ####[facility] U[address]wxcm[address] [place], [place] [address]Dr. Dulceuday Simmons SARS-CoV-2 (COVID-19) RNA GOKUL+probe Ql (Unsp spec) Not detected Normal NOT DETECTED [facility] Comment on above: Performed By: #### R SPLUS ####[facility] [address]ww[address]ax[address] [place], [place] [address]Dr. Dulceuday Simmons Result Comment: When diagnostic testing is [...] for this test is supported by the Kemp of Health and Human Service's declaration that [...] Performed By: #### I NFLUAB #### [facility] [address] [place] [address] Dr. Nicky Simmons STREPT SCREENon 05-17-2022 STREP SCREEN A Negative Normal NEGATIVE [facility] Comment on above: Performed By: #### S SCRN, GRASTCX #### [facility] [address] [place] [address] Dr. Nicky Simmons XR CHEST 1 Von [...] LIRIANO Date: 2022-05-17 15:42 Normal [facility] CBC AUTO DIFFon 04-16-2022 BASO # 0.1 103/ul Normal 0.0-0.1 [facility] Comment on above: Performed By: #### C BC #### [facility] [address] [place] [address] Dr. Nicky Simmons Basophils/100 WBC (Bld) 0.5 % Normal 0.2-2.0 [facility] Comment on above: Performed By: #### C BC #### [facility] [address] [place] [address] Dr. Nicky Simmons EO # 0.2 103/ul Normal 0.0-0.7 [facility] Comment on above: Performed By: #### C BC #### [facility] [address] [place] [address] Dr. Nicky Simmons Eosinophils/100 WBC (Bld) 2.1 % Normal 0.9-7.0 [facility] Comment on above: Performed By: #### C BC #### [facility] [address] [place] [address] Dr. Nicky Simmons Erythrocyte distribution width (RBC) [Ratio] 13.0 % Normal 11.0-15.0 [facility] Comment on above: Performed By: #### C BC #### [facility] [address] [place] [address] Dr. Nicky Simmons Hematocrit (Bld) [Volume fraction] 41.7 % Normal 36.0-48.0 [facility] Comment on above: Performed By: #### C BC #### [facility] [address] [place] [address] Dr. Nicky Simmons Hemoglobin (Bld) [Mass/Vol] 13.5 g/dL Normal 12.0-16.0 [facility] Comment on above: Performed By: #### C BC #### [facility] [address] [place] [address] Dr. Nicky Simmons IG # 0.06 10e3/ul Critically high 0.00-0.03 [facility] Comment on above: Performed By: #### C BC #### [facility] [address] [place] [address] Dr. Nicky Simmons IG % 0.6 % Critically high 0.0-0.5 [facility] Comment on above: Performed By: #### C BC #### [facility] [address] [place] [address] Dr. Nicky Simmons LYMPH # 2.4 103/ul Normal 1.2-3.8 [facility] Comment on above: Performed By: #### C BC #### [facility] [address] [place] [address] Dr. Nicky Simmons Lymphocytes/100 WBC (Bld) 23.1 % Normal 20.5-60.0 [facility] Comment on above: Performed By: #### C BC #### [facility] [address] [place] [address] Dr. Nicky Simmons MANUAL DIFF REQ NO Normal [facility] Comment on above: Performed By: #### C BC #### [facility] [address] [place] [address] Dr. Nicky Simmons MCH (RBC) [Entitic mass] 29.2 pg Normal 26.7-34.0 [facility] Comment on above: Performed By: #### C BC #### [facility] [address] [place] [address] Dr. Nicky Simmons MCHC (RBC) [Mass/Vol] 32.4 g/dL Normal 29.9-35.2 [facility] Comment on above: Performed By: #### C BC #### [facility] [address] [place] [address] Dr. Nicky Simmons MCV (RBC) [Entitic vol] 90.1 fL Normal 81.0-99.0 [facility] Comment on above: Performed By: #### C BC #### [facility] [address] [place] [address] Dr. Nicky Simmons MONO # 0.6 103/ul Normal 0.3-0.8 [facility] Comment on above: Performed By: #### C BC #### [facility] [address] [place] [address] Dr. Nicky Simmons Monocytes/100 WBC (Bld) 5.6 % Normal 1.7-12.0 [facility] Comment on above: Performed By: #### C BC #### [facility] [address] [place] [address] Dr. Nicky Simmons NEUT # 7.2 103/ul Critically high 1.4-6.5 [facility] Comment on above: Performed By: #### C BC #### [facility] [address] [place] [address] Dr. Nicky Simmons Neutrophils/100 WBC (Bld) 68.1 % Normal 43.0-75.0 [facility] Comment on above: Performed By: #### C BC #### [facility] [address] [place] [address] Dr. Nicky Simmons Platelet mean volume (Bld) [Entitic vol] 9.6 fL Normal 9.5-13.5 [facility] Comment on above: Performed By: #### C BC #### [facility] [address] [address] [address] Nicky Simmons PLT 339 103/ul Normal 150-450 [facility] Comment on above: Performed By: #### C BC #### [facility] [address] [address] [address] Nicky Simmons RBC 4.63 106/ul Normal 4.20-5.40 [facility] Comment on above: Performed By: #### C BC #### [facility] [id number] Nicky Simmons WBC 10.6 103/ul Normal 4.0-11.0 [facility] Comment on above: Performed By: #### C BC #### [facility] [address] [address] [address] Nicky Simmons PREG HCG QUALon 04-16-2022 , QUAL Negative Normal NEGATIVE [facility] Comment on above: Performed By: #### P REG ####[facility] [address] [place], [place] [address]SpDr. Nicky Simmons Covid-19 PCR (CVDTB)on SARS-CoV-2 (COVID-19) RNA GOKUL+probe Ql (Unsp spec) Not detected Normal NOT DETECTED [facility] Comment on above: Result Comment: This test is not yet approved or cleared by the [place] FDA. When there are no FDA-approved or cleared tests available, and other criteria are met, FDA can make tests available under an emergency access mechanism called an Emergency Use Authorization (EUA). The EUA for this test is supported by the [place] of Health and Human Service's (HHS's) declaration [...] SARS-CoV-2. Performed By: #### C VDTB ####[facility] [address] [place], [place] [address]UxDr. Nicky Simmons CBC AUTO DIFFon 03-23-2022 BASO # 0.0 103/ul Normal 0.0-0.1 [facility] Comment on above: Performed By: #### I NFLUAB #### [facility] [address] [address] [address] Nicky Simmons Basophils/100 WBC (Bld) 0.4 % Normal 0.2-2.0 [facility] Comment on above: Performed By: #### I NFLUAB #### [facility] [address] [place] [address] Dr. Nicky Simmons EO # 0.4 103/ul Normal 0.0-0.7 [facility] Comment on above: Performed By: #### I NFLUAB #### [facility] [address] [address] [address] Nicky Simmons Eosinophils/100 WBC (Bld) 3.3 % Normal 0.9-7.0 [facility] Comment on above: Performed By: #### I NFLUAB #### [facility] [address] [address] [address] Nicky Simmons Erythrocyte distribution width (RBC) [Ratio] 12.9 % Normal 11.0-15.0 [facility] Comment on above: Performed By: #### I NFLUAB #### [facility] [address] [address] [address] Nicky Simmons Hematocrit (Bld) [Volume fraction] 41.7 % Normal 36.0-48.0 [facility] Comment on above: Performed By: #### I NFLUAB #### [facility] [address] [address] [address] Nicky Simmons Hemoglobin (Bld) [Mass/Vol] 13.7 g/dL Normal 12.0-16.0 [facility] Comment on above: Performed By: #### I NFLUAB #### [facility] [address] [place] [address] Dr. Nicky Simmons IG # 0.04 10e3/ul Critically high 0.00-0.03 [facility] Comment on above: Performed By: #### I NFLUAB #### [facility] [address] [place] [address] Dr. Nicky Simmons IG % 0.4 % Normal 0.0-0.5 [facility] Comment on above: Performed By: #### I NFLUAB #### [facility] [address] [place] [address] Dr. Nicky Simmons LYMPH # 2.5 103/ul Normal 1.2-3.8 [facility] Comment on above: Performed By: #### I NFLUAB #### [facility] [address] [place] [address] Dr. Nicky Simmons Lymphocytes/100 WBC (Bld) 22.3 % Normal 20.5-60.0 [facility] Comment on above: Performed By: #### I NFLUAB #### [facility] [address] [place] [address] Dr. Nicky Simmons MANUAL DIFF REQ NO Normal [facility] Comment on above: Performed By: #### I NFLUAB #### [facility] [address] [place] [address] Dr. Nicky Simmons MCH (RBC) [Entitic mass] 29.3 pg Normal 26.7-34.0 [facility] Comment on above: Performed By: #### I NFLUAB #### [facility] [address] [place] [address] Dr. Nicky Simmons MCHC (RBC) [Mass/Vol] 32.9 g/dL Normal 29.9-35.2 [facility] Comment on above: Performed By: #### I NFLUAB #### [facility] [address] [place] [address] Dr. Nicky Simmons MCV (RBC) [Entitic vol] 89.1 fL Normal 81.0-99.0 [facility] Comment on above: Performed By: #### I NFLUAB #### [facility] [address] [place] [address] Dr. Nicky Simmons MONO # 0.6 103/ul Normal 0.3-0.8 [facility] Comment on above: Performed By: #### I NFLUAB #### [facility] [address] [place] [address] Dr. Nicky Simmons Monocytes/100 WBC (Bld) 5.4 % Normal 1.7-12.0 [facility] Comment on above: Performed By: #### I NFLUAB #### [facility] [address] [place] [address] Dr. Nicky Simmons NEUT # 7.6 103/ul Critically high 1.4-6.5 [facility] Comment on above: Performed By: #### I NFLUAB #### [facility] [address] [place] [address] Dr. Nicky Simmons Neutrophils/100 WBC (Bld) 68.2 % Normal 43.0-75.0 [facility] Comment on above: Performed By: #### I NFLUAB #### [facility] [address] [place] [address] Dr. Nicky Simmons Platelet mean volume (Bld) [Entitic vol] 9.2 fL Critically low 9.5-13.5 [facility] Comment on above: Performed By: #### I NFLUAB #### [facility] [address] [place] [address] Dr. Nicky Simmons PLT 387 103/ul Normal 150-450 [facility] Comment on above: Performed By: #### I NFLUAB #### [facility] [address] [place] [address] Dr. Nicky Simmons RBC 4.68 106/ul Normal 4.20-5.40 [facility] Comment on above: Performed By: #### I NFLUAB #### [facility] [address] [place] [address] Dr. Nicky Simmons WBC 11.1 103/ul Critically high 4.0-11.[address] [facility] Comment on above: Performed By: #### I NFLUAB #### [facility] [address] [place] [address] Dr. Nicky Simmons CRPon 03-23-2022 CRP 1.8 mg/dL Critically high <=1.0 [facility] Comment on above: Performed By: #### I NFLUAB #### [facility] [address] [place] [address] Dr. Nicky Simmons PROF CHEM 8 (BAS METB)on Anion gap [Moles/Vol] 12.2 mmol/L Normal [facility] Comment on above: Performed By: #### I NFLUAB #### [facility] [address] [place] [address] Dr. Nicky Simmons Calcium [Mass/Vol] 8.8 mg/dL Normal 8.5-10.[address] [facility] Comment on above: Performed By: #### I NFLUAB #### [facility] [address] [place] [address] Dr. Nicky Simmons Chloride [Moles/Vol] 107 mmol/L Normal 98-107 [facility] Comment on above: Performed By: #### I NFLUAB #### [facility] [address] [place] [address] Dr. Nicky Simmons CO2 [Moles/Vol] 23.8 mmol/L Normal 21.0-32.[address] [facility] Comment on above: Performed By: #### I NFLUAB #### [facility] [address] [place] [address] Dr. Nicky Simmons Creatinine [Mass/Vol] 0.78 mg/dL Normal 0.55-1.02 [facility] Comment on above: Performed By: #### I NFLUAB #### [facility] [address] [place] [address] Dr. Nicky Simmons EGFR-AF MAURITANIAN >60 Normal >=[address] [facility] Comment on above: Performed By: #### I NFLUAB #### [facility] [address] [place] [address] Dr. Nicky Simmons EGFR-NON AF MAURITANIAN >60 Normal >=60 [facility] Comment on above: Performed By: #### I NFLUAB #### [facility] [address] [address] [address] Nicky Simmons Glucose [Mass/Vol] 121 mg/dL Critically high 74-106 [facility] Comment on above: Performed By: #### I NFLUAB #### [facility] [address] [address] [address] Nicky Simmons Potassium [Moles/Vol] 4.0 mmol/L Normal 3.5-5.1 [facility] Comment on above: Performed By: #### I NFLUAB #### [facility] [address] [address] [address] Nicky Simmons Sodium [Moles/Vol] 139 mmol/L Normal 136-145 [facility] Comment on above: Performed By: #### I NFLUAB #### [facility] [address] [address] [address] Nicky Simmons Urea nitrogen [Mass/Vol] 11.0 mg/dL Normal 7.0-18.0 [facility] Comment on above: Performed By: #### I NFLUAB #### [facility] [address] [place] [address] Dr. Nicky Simmons Urea nitrogen/Creatinine [Mass ratio] 14.1 mg/mg Normal [facility] Comment on above: Performed By: #### I NFLUAB #### [facility] [address] [address] [address] Nicky Simmons SED RATE [facility] 2021 SED RATE 36 mm/hr Critically high <=20 [facility] Comment on above: Performed By: #### C BC #### [facility] [address] [address] [address] Nicky Simmons XR KNEE LT 4V [...] acute osseous abnormality. Electronically authenticated by: MARIAM LAURA Date: 2022-02-27 22:00 Normal [facility] CBC AUTO DIFFon 02-23-2022 BASO # 0.1 103/ul Normal 0.0-0.1 [facility] Comment on above: Performed By: #### C BC #### [facility] [address] [address] [address] Nicky Simmons Basophils/100 WBC (Bld) 0.6 % Normal 0.2-2.0 [facility] Comment on above: Performed By: #### C BC #### [facility] [address] [place] [address] Dr. Nicky Simmons EO # 0.3 103/ul Normal 0.0-0.7 [facility] Comment on above: Performed By: #### C BC #### [facility] [address] [address] [address] Nicky Simmons Eosinophils/100 WBC (Bld) 2.5 % Normal 0.9-7.0 [facility] Comment on above: Performed By: #### C BC #### [facility] [address] [place] [address] Dr. Nicky Simmons Erythrocyte distribution width (RBC) [Ratio] 12.8 % Normal 11.0-15.0 [facility] Comment on above: Performed By: #### C BC #### [facility] [address] [place] [address] Dr. Nicky Simmons Hematocrit (Bld) [Volume fraction] 39.5 % Normal 36.0-48.0 [facility] Comment on above: Performed By: #### C BC #### [facility] [address] [address] [address] Nicky Simmons Hemoglobin (Bld) [Mass/Vol] 13.0 g/dL Normal 12.0-16.0 [facility] Comment on above: Performed By: #### C BC #### [facility] [address] [place] [address] Dr. Nicky Simmons IG # 0.04 10e3/ul Critically high 0.00-0.03 [facility] Comment on above: Performed By: #### C BC #### [facility] [address] [place] [address] Dr. Nicky Simmons IG % 0.3 % Normal 0.0-0.5 [facility] Comment on above: Performed By: #### C BC #### [facility] [address] [place] [address] Dr. Nicky Simmons LYMPH # 3.0 103/ul Normal 1.2-3.8 [facility] Comment on above: Performed By: #### C BC #### [facility] [address] [place] [address] Dr. Nicky Simmons Lymphocytes/100 WBC (Bld) 24.4 % Normal 20.5-60.0 [facility] Comment on above: Performed By: #### C BC #### [facility] [address] [place] [address] Dr. Nicky Simmons MANUAL DIFF REQ NO Normal [facility] Comment on above: Performed By: #### C BC #### [facility] [address] [place] [address] Dr. Nicky Simmons MCH (RBC) [Entitic mass] 29.4 pg Normal 26.7-34.0 [facility] Comment on above: Performed By: #### C BC #### [facility] [address] [place] [address] Dr. Nicky Simmons MCHC (RBC) [Mass/Vol] 32.9 g/dL Normal 29.9-35.2 [facility] Comment on above: Performed By: #### C BC #### [facility] [address] [place] [address] Dr. Nicky Simmons MCV (RBC) [Entitic vol] 89.4 fL Normal 81.0-99.0 [facility] Comment on above: Performed By: #### C BC #### [facility] [address] [place] [address] Dr. Nicky Simmons MONO # 0.7 103/ul Normal 0.3-0.8 [facility] Comment on above: Performed By: #### C BC #### [facility] [address] [place] [address] Dr. Nicky Simmons Monocytes/100 WBC (Bld) 6.0 % Normal 1.7-12.0 [facility] Comment on above: Performed By: #### C BC #### [facility] [address] [place] [address] Dr. Nicky Simmons NEUT # 8.0 103/ul Critically high 1.4-6.5 [facility] Comment on above: Performed By: #### C BC #### [facility] [address] [place] [address] Dr. Nicky Simmons Neutrophils/100 WBC (Bld) 66.2 % Normal 43.0-75.0 [facility] Comment on above: Performed By: #### C BC #### [facility] [address] [place] [address] Dr. Nicky Simmons Platelet mean volume (Bld) [Entitic vol] 9.1 fL Critically low 9.5-13.5 [facility] Comment on above: Performed By: #### C BC #### [facility] [address] [place] [address] Dr. Nicky Simmons PLT 367 103/ul Normal 150-450 [facility] Comment on above: Performed By: #### C BC #### [facility] [address] [place] [address] Dr. Nicky Simmons RBC 4.42 106/ul Normal 4.20-5.40 [facility] Comment on above: Performed By: #### C BC #### [facility] [address] [place] [address] Dr. Nicky Simmons WBC 12.1 103/ul Critically high 4.0-11.[address] [facility] Comment on above: Performed By: #### C BC #### [facility] [address] [place] [address] Dr. Nicky Simmons ER URINE PROFILEon 2 Bilirubin Ql (U) Negative Normal NEGATIVE [facility] Comment on above: Performed By: #### I NFLUAB #### [facility] [address] [address] [address] Nicky Simmons Clarity (U) CLEAR Normal CLEAR [facility] Comment on above: Performed By: #### I NFLUAB #### [facility] [address] [place] [address] Dr. Nicky Simmons Color (U) RED Abnormal YELLOW [facility] Comment on above: Performed By: #### I NFLUAB #### [facility] [address] [place] [address] Dr. Nicky NORTON A micrscopic examination will be performed if indicated. Normal [facility] Comment on above: Performed By: #### I NFLUAB #### [facility] [address] [place] [address] Dr. Nicky Simmons Glucose Ql (U) Negative Normal NEGATIVE [facility] Comment on above: Performed By: #### I NFLUAB #### [facility] [address] [place] [address] Dr. Nicky Simmons Hemoglobin Ql (U) LARGE Abnormal NEGATIVE [facility] Comment on above: Performed By: #### I NFLUAB #### [facility] [address] [place] [address] Dr. Nicky Simmons Ketones Ql (U) Negative Normal NEGATIVE [facility] Comment on above: Performed By: #### I NFLUAB #### [facility] [address] [place] [address] Dr. Nicky Simmons LEUKOCYTES Negative Normal NEGATIVE [facility] Comment on above: Performed By: #### I NFLUAB #### [facility] [address] [address] [address] Nicky Simmons Nitrite Ql (U) Negative Normal NEGATIVE [facility] Comment on above: Performed By: #### I NFLUAB #### [facility] [address] [place] [address] Dr. Nicky Simmons pH (U) 8.5 [pH] Normal 5-9 [facility] Comment on above: Performed By: #### I NFLUAB #### [facility] [address] [address] [address] Nicky Simmons SPEC GRAVITY 1.015 Normal 1.005-<=1.025 [facility] Comment on above: Performed By: #### I NFLUAB #### [facility] [address] [address] [address] Nicky Simmons UA PROTEIN TRACE Normal NEGATIVE/ TRACE [facility] Comment on above: Performed By: #### I NFLUAB #### [facility] [address] [address] [address] Nicky Simmons UR MICRO IND INDICATED Normal [facility] Comment on above: Performed By: #### I NFLUAB #### [facility] [address] [place] [address] Dr. Nicky Simmons Urobilinogen Qn (U) 0.2 {Yan'U}/dL Normal 0.2 - 1. 0 [facility] Comment on above: Performed By: #### I NFLUAB #### [facility] [address] [place] [address] Dr. Nicky Simmons SED RATE [facility] 2021 SED RATE 30 mm/hr Critically high <=20 [facility] Comment on above: Performed By: #### S EDR ####[facility] [address] [address] Nicky Simmons URINE MICROSCOPIC ONLYon BACTERIA TRACE Abnormal NONE SEEN [facility] Comment on above: Performed By: #### I NFLUAB #### [facility] [address] [place] [address] Dr. Nicky Simmons Bacteria identified Cx Nom (U) NOT INDICATED Normal [facility] Comment on above: Performed By: #### I NFLUAB #### [facility] [address] [place] [address] Dr. Nicky Simmons CAST NONE SEEN Normal NONE SEEN [facility] Comment on above: Performed By: #### I NFLUAB #### [facility] [address] [place] [address] Dr. Nicky Simmons Crystals LM Nom (Urine sed) NONE SEEN Normal NONE SEEN [facility] Comment on above: Performed By: #### I NFLUAB #### [facility] [address] [place] [address] Dr. Nicky Simmons Epithelial cells LM Ql (Urine sed) RARE Normal NONE SEEN /RARE [facility] Comment on above: Performed By: #### I NFLUAB #### [facility] [address] [place] [address] Dr. Nicky Simmons MUCOUS NONE SEEN Normal NONE SEEN [facility] Comment on above: Performed By: #### I NFLUAB #### [facility] [address] [place] [address] Dr. Nicky Simmons RBC 75-100 Abnormal 0-2 [facility] Comment on above: Performed By: #### I NFLUAB #### [facility] [address] [place] [address] Dr. Nicky Simmons WBC 2-5 Abnormal NONE SEEN [facility] Comment on above: Performed By: #### I NFLUAB #### [facility] [address] [place] [address] Dr. Nicky Simmons US PELVISon 02-23-2022 US [...] LYLE Date: 2022-02-23 13:53 Normal [facility] C-Reactive Proteinon 020 CRP [Mass/Vol] 2.8 mg/L Normal 0.0-5.0 [facility] Comment on above: Performed By: #### C DP, CRP, CP, TROPI, HCG, LD #### [facility] [address] [place] [address] Sample Room Supervisor: Christopher Dorsey DO CRP [Mass/Vol] 2.8 mg/L 0 - 5 mg/L [place], [place] CBC Auto Differentialon 02-04 Basophils (Bld) [#/Vol] 0.00 10*3/uL [place] Basophils/100 WBC (Bld) 0 % 0 - 2 % [place] Differential Type NOT REPORTED [place] Eosinophils (Bld) [#/Vol] 0.20 10*3/uL [place] Eosinophils/100 WBC (Bld) 3 % 0 - 4 % [place] Erythrocyte distribution width (RBC) [Ratio] 13.5 % 11.5 - 14.9 % [place] Hematocrit (Bld) [Volume fraction] 39.3 % 36 - 46 % [place] Hemoglobin (Bld) [Mass/Vol] 12.9 g/dL 12 - 16 g/dL [place] Lymphocytes (Bld) [#/Vol] 2.00 10*3/uL [place] Lymphocytes/100 WBC (Bld) 29 % 24 - 44 % [place] MCH (RBC) [Entitic mass] 29.3 pg 26 - 34 pg [place] MCHC (RBC) [Mass/Vol] 32.7 g/dL 31 - 37 g/dL [place] MCV (RBC) [Entitic vol] 89.6 fL 80 - 100 fL [place] Monocytes (Bld) [#/Vol] 0.50 10*3/uL [place] Monocytes/100 WBC (Bld) 7 % 1 - 7 % [place] Platelet mean volume (Bld) [Entitic vol] 8.3 fL 6 - 12 fL [place] Platelets (Bld) [#/Vol] 238 10*3/uL [place] Platelets (Bld) [#/Vol] NOT REPORTED [place] RBC (Bld) [#/Vol] 4.39 10*6/uL 4 - 5.2 m/uL [place] RBC morphology finding Nom (Bld) NOT REPORTED [place] Segmented neutrophils/100 WBC (Bld) 61 % 36 - 66 % [place] Segs Absolute 4.20 [place] WBC (Bld) [#/Vol] NOT REPORTED per 100 WBC [place] WBC (Bld) [#/Vol] 7.0 10*3/uL [place] WBC Morphology NOT REPORTED [place], [place] CBC with Diffon 03-01-2020 Abs. Basophil 0.00 k/uL Normal 0.0-0.2 [facility] Comment on above: Performed By: #### C DP, CRP, CP, TROPI, HCG, LD #### [facility] [place] [address] Sample Room Supervisor: Christopher Dorsey DO Abs.Neutrophil (Seg) 4.20 k/uL Normal 1.3-9.1 [facility] Comment on above: Performed By: #### C DP, CRP, CP, TROPI, HCG, LD #### [facility] [place] [address] Sample Room Supervisor: Christopher Dorsey DO Basophils/100 WBC (Bld) 0 % Normal 0-2 [facility] Comment on above: Performed By: #### C DP, CRP, CP, TROPI, HCG, LD #### [facility] [place] [address] Sample Room Supervisor: Christopher Dorsey DO Eosinophils (Bld) [#/Vol] 0.20 10*3/uL Normal 0.0-0.4 [facility] Comment on above: Performed By: #### C DP, CRP, CP, TROPI, HCG, LD #### [facility] [address] [place] [address] Sample Room Supervisor: Christopher Dorsey DO Eosinophils/100 WBC (Bld) 3 % Normal 0-4 [facility] Comment on above: Performed By: #### C DP, CRP, CP, TROPI, HCG, LD #### [facility] [address] [place] [address] Sample Room Supervisor: Christopher Dorsey DO Erythrocyte distribution width (RBC) [Ratio] 13.5 % Normal 11.5-14.9 [facility] Comment on above: Performed By: #### C DP, CRP, CP, TROPI, HCG, LD #### [facility] [address] [place] [address] Sample Room Supervisor: Christopher Dorsey DO Hematocrit (Bld) [Volume fraction] 39.3 % Normal 36-46 [facility] Comment on above: Performed By: #### C DP, CRP, CP, TROPI, HCG, LD #### [facility] [address] [place] [address] Sample Room Supervisor: Christopher Dorsey DO Hemoglobin (Bld) [Mass/Vol] 12.9 g/dL Normal 12.0-16.0 [facility] Comment on above: Performed By: #### C DP, CRP, CP, TROPI, HCG, LD #### [facility] [place] [address] Sample Room Supervisor: Christopher Dorsey DO Lymphocytes (Bld) [#/Vol] 2.00 10*3/uL Normal 1.0-4.8 [facility] Comment on above: Performed By: #### C DP, CRP, CP, TROPI, HCG, LD #### [facility] [address] [place] [address] Sample Room Supervisor: Christopher Dorsey DO Lymphocytes/100 WBC (Bld) 29 % Normal 24-44 [facility] Comment on above: Performed By: #### C DP, CRP, CP, TROPI, HCG, LD #### [facility] [address] [place] [address] Sample Room Supervisor: Christopher Dorsey DO MCH (RBC) [Entitic mass] 29.3 pg Normal 26-34 [facility] Comment on above: Performed By: #### C DP, CRP, CP, TROPI, HCG, LD #### [facility] [address] [facility] [place] [address] Sample Room Supervisor: Christopher Dorsey DO MCHC (RBC) [Mass/Vol] 32.7 g/dL Normal 31-37 [facility] Comment on above: Performed By: #### C DP, CRP, CP, TROPI, HCG, LD #### [facility] [place] [address] Sample Room Supervisor: Christopher Dorsey DO MCV (RBC) [Entitic vol] 89.6 fL Normal 80-100 [facility] Comment on above: Performed By: #### C DP, CRP, CP, TROPI, HCG, LD #### [facility] [place] [address] Sample Room Supervisor: Christopher Dorsey DO Monocytes (Bld) [#/Vol] 0.50 10*3/uL Normal 0.1-1.3 [facility] Comment on above: Performed By: #### C DP, CRP, CP, TROPI, HCG, LD #### [facility] [address] [facility] [place] [address] Sample Room Supervisor: Christopher Dorsey DO Monocytes/100 WBC (Bld) 7 % Normal 1-7 [facility] Comment on above: Performed By: #### C DP, CRP, CP, TROPI, HCG, LD #### [facility] [address] [facility] [place] [address] Sample Room Supervisor: Christopher Dorsey DO Neutrophil (Seg) 61 % Normal 36-66 [facility] Comment on above: Performed By: #### C DP, CRP, CP, TROPI, HCG, LD #### [facility] [address] [place] [address] Sample Room Supervisor: Christopher Dorsey DO Platelet mean volume (Bld) [Entitic vol] 8.3 fL Normal 6.0-12.0 [facility] Comment on above: Performed By: #### C DP, CRP, CP, TROPI, HCG, LD #### [facility] [address] [place] [address] Sample Room Supervisor: Christopher Dorsey DO Platelets (Bld) [#/Vol] 238 10*3/uL Normal 150-450 [facility] Comment on above: Performed By: #### C DP, CRP, CP, TROPI, HCG, LD #### [facility] [address] [place] [address] Sample Room Supervisor: Christopher Dorsey DO RBC (Bld) [#/Vol] 4.39 10*6/uL Normal 4.0-5.2 [facility] Comment on above: Performed By: #### C DP, CRP, CP, TROPI, HCG, LD #### [facility] [place] [address] Sample Room Supervisor: Christopher Dorsey DO WBC (Bld) [#/Vol] 7.0 10*3/uL Normal 3.5-11.0 [facility] Comment on above: Performed By: #### C DP, CRP, CP, TROPI, HCG, LD #### [facility] [address] [place] [address] Sample Room Supervisor: Christopher Dorsey DO Abs.Imm.Granulocyte NOT REPORTED Normal 0.00-0.30 [facility] Comment on above: Performed By: #### C DP, CRP, CP, TROPI, HCG, LD #### [facility] [address] [facility] [place] [address] Sample Room Supervisor: Christopher Dorsey DO Auto Diff Performed NOT REPORTED Normal [facility] Comment on above: Performed By: #### C DP, CRP, CP, TROPI, HCG, LD #### [facility] [address] [place] [address]. [place] [address] Sample Room Supervisor: Christopher Dorsey DO Immature granulocytes (Bld) [#/Vol] NOT REPORTED Normal 0 [facility] Comment on above: Performed By: #### C DP, CRP, CP, TROPI, HCG, LD #### [facility] [address] [place] [address]. [place] [address] Sample Room Supervisor: Christopher Dorsey DO NRBC Automated NOT REPORTED Normal [facility] Comment on above: Performed By: #### C DP, CRP, CP, TROPI, HCG, LD #### [facility] [address] [place] [address] Sample Room Supervisor: Christopher Dorsey DO Platelets (Bld) [#/Vol] NOT REPORTED Normal [facility] Comment on above: Performed By: #### C DP, CRP, CP, TROPI, HCG, LD #### [facility] [address] [place] [address]. [place] [address] Sample Room Supervisor: Christopher Dorsey DO RBC morphology finding Nom (Bld) NOT REPORTED Normal [facility] Comment on above: Performed By: #### C DP, CRP, CP, TROPI, HCG, LD #### [facility] [address] [place] [address] Sample Room Supervisor: Christopher Dorsey DO WBC Morphology NOT REPORTED Normal [facility] Comment on above: Performed By: #### C DP, CRP, CP, TROPI, HCG, LD #### [facility] [address] [facility] [place] [address] Sample Room Supervisor: Christopher Dorsey DO Comp Metabolic Profon 2019 Bilirubin Ql (U) <0.15 Low 0.3-1.2 [facility] Comment on above: Performed By: #### C DP, CRP, CP, TROPI, HCG, LD #### [facility] [address] [place] [address] Sample Room Supervisor: Christopher Dorsey DO (cont.) Normal [facility] Comment on above: Result Comment: Aver age GFR for 30-39 years old: 107 mL/min/1.73sq m Chronic Kidney Disease: <60 mL/min/1.73sq m Kidney failure: <15 mL/min/1.73sq m eGFR calculated using average adult body mass. Additional eGFR calculator available at: http://www.VIPerks/multiple_crcl_2012.htm Performed By: #### C DP, CRP, CP, TROPI, HCG, LD #### [facility] [address] [facility] [place] [address] Sample Room Supervisor: Christopher Dorsey DO Albumin [Mass/Vol] 3.7 g/dL Normal 3.5-5.2 [facility] Comment on above: Performed By: #### C DP, CRP, CP, TROPI, HCG, LD #### [facility] [address] [facility] [place] [address] Sample Room Supervisor: Christopher Dorsey DO Alkaline Phos 67 U/L Normal 35-104 [facility] Comment on above: Performed By: #### C DP, CRP, CP, TROPI, HCG, LD #### [facility] [address] [facility] [place] [address] Sample Room Supervisor: Christopher Dorsey DO ALT [Catalytic activity/Vol] 12 U/L Normal 5-33 [facility] Comment on above: Performed By: #### C DP, CRP, CP, TROPI, HCG, LD #### [facility] [address] [place] [address] Sample Room Supervisor: Christopher Dorsey DO Anion gap [Moles/Vol] 12 mmol/L Normal 9-17 [facility] Comment on above: Performed By: #### C DP, CRP, CP, TROPI, HCG, LD #### [facility] [address] [place] [address] Sample Room Supervisor: Christopher Dorsey DO AST [Catalytic activity/Vol] 13 U/L Normal <32 [facility] Comment on above: Performed By: #### C DP, CRP, CP, TROPI, HCG, LD #### [facility] [address] [place] [address] Sample Room Supervisor: Christopher Drosey DO Calcium [Mass/Vol] 8.7 mg/dL Normal 8.6-10.4 [facility] Comment on above: Performed By: #### C DP, CRP, CP, TROPI, HCG, LD #### [facility] [address] [place] [address] Sample Room Supervisor: Christopher Dorsey DO Chloride [Moles/Vol] 110 mmol/L High 98-107 [facility] Comment on above: Performed By: #### C DP, CRP, CP, TROPI, HCG, LD #### [facility] [address] [place] [address] Sample Room Supervisor: Christopher Dorsey DO CO2 [Moles/Vol] 18 mmol/L Low 20-31 [facility] Comment on above: Performed By: #### C DP, CRP, CP, TROPI, HCG, LD #### [facility] [address] [place] [address] Sample Room Supervisor: Christopher Dorsey DO Creatinine [Mass/Vol] 0.62 mg/dL Normal 0.50-0.90 [facility] Comment on above: Performed By: #### C DP, CRP, CP, TROPI, HCG, LD #### [facility] [address] [place] [address] Sample Room Supervisor: Christopher Dorsey DO GFR, Amer >60 Normal >60 [facility] Comment on above: Performed By: #### C DP, CRP, CP, TROPI, HCG, LD #### [facility] [address] [facility] [place] [address] Sample Room Supervisor: Christopher Dorsey DO GFR,non Amer >60 Normal >60 [facility] Comment on above: Performed By: #### C DP, CRP, CP, TROPI, HCG, LD #### [facility] [address] [facility] [place] [address] Sample Room Supervisor: Christopher Dorsey DO Glucose [Mass/Vol] 84 mg/dL Normal 70-99 [facility] Comment on above: Performed By: #### C DP, CRP, CP, TROPI, HCG, LD #### [facility] [address] [facility] [place] [address] Sample Room Supervisor: Christopher Dorsey DO Potassium [Moles/Vol] 3.9 mmol/L Normal 3.7-5.3 [facility] Comment on above: Performed By: #### C DP, CRP, CP, TROPI, HCG, LD #### [facility] [address] [facility] [place] [address] Sample Room Supervisor: Christopher Dorsey DO Protein [Mass/Vol] 6.3 g/dL Low 6.4-8.3 [facility] Comment on above: Performed By: #### C DP, CRP, CP, TROPI, HCG, LD #### [facility] [address] [facility] [place] [address] Sample Room Supervisor: Christopher Dorsey DO Sodium [Moles/Vol] 140 mmol/L Normal 135-144 [facility] Comment on above: Performed By: #### C DP, CRP, CP, TROPI, HCG, LD #### [facility] [address] [facility] [place] [address] Sample Room Supervisor: Christopher Dorsey DO Urea nitrogen [Mass/Vol] 11 mg/dL Normal 6-20 [facility] Comment on above: Performed By: #### C DP, CRP, CP, TROPI, HCG, LD #### [facility] [address] [facility] [place] [address] Sample Room Supervisor: Christopher Dorsey DO Albumin/Globulin [Mass ratio] NOT REPORTED Normal 1.0-2.5 [facility] Comment on above: Performed By: #### C DP, CRP, CP, TROPI, HCG, LD #### [facility] [address] [facility] [place] [address] Sample Room Supervisor: Christopher Dorsey DO BUN/CRE Ratio NOT REPORTED Normal 9-20 [facility] Comment on above: Performed By: #### C DP, CRP, CP, TROPI, HCG, LD #### [facility] [address] [facility] [place] [address] Sample Room Supervisor: Christopher Dorsey DO Staging: NOT REPORTED Normal [facility] Comment on above: Performed By: #### C DP, CRP, CP, TROPI, HCG, LD #### [facility] [address] [facility] [place] [address] Sample Room Supervisor: Christopher Dorsey DO Comprehensive Metabolic Pane [facility] 03-01-2020 Albumin [Mass/Vol] 3.7 g/dL 3.5 - 5.2 g/dL [place] Albumin/Globulin [Mass ratio] NOT REPORTED [place] ALP [Catalytic activity/Vol] 67 U/L 35 - 104 U/L [place] ALT [Catalytic activity/Vol] 12 U/L 5 - 33 U/L [place] Anion gap [Moles/Vol] 12 mmol/L 9 - 17 mmol/L [place] AST [Catalytic activity/Vol] 13 U/L <32 [place] Bilirubin Ql (U) <0.15 Low 0.3 - 1.2 mg/dL [place] Bun/Cre Ratio NOT REPORTED [place] Calcium [Mass/Vol] 8.7 mg/dL 8.6 - 10. 4 mg/dL [place] Chloride [Moles/Vol] 110 mmol/L High 98 - 10 7 mmol/L [place] CO2 [Moles/Vol] 18 mmol/L Low 20 - 31 mmol/L [place] Creatinine [Mass/Vol] 0.62 mg/dL 0.5 - 0.9 mg/dL [place] GFR >60 >60 mL/min [place] GFR Non- >60 >60 mL/min [place] GFR/1.73 sq M predicted among non-blacks MDRD (S/P/Bld) [Vol rate/Area] NOT REPORTED [place] GFR/1.73 sq M predicted among non-blacks MDRD (S/P/Bld) [Vol rate/Area] [place] Comment on above: Average GFR for 30-3 9 years old: 107 mL/min/1.73sq m Chronic Kidney Disease: <60 mL/min/1.73sq m Kidney failure: <15 mL/min/1.73sq m eGFR calculated using average adult body mass. Additional eGFR calculator available at: http://www.VIPerks/multiple_crcl_2012.htm Glucose [Mass/Vol] 84 mg/dL 70 - 99 mg/dL [place], [place] Interpretation and review of laboratory results Abnormal [place] Potassium [Moles/Vol] 3.9 mmol/L 3.7 - 5.3 mmol/L [place] Protein [Mass/Vol] 6.3 g/dL Low 6.4 - 8.3 g/dL [place] Sodium [Moles/Vol] 140 mmol/L 135 - 144 mmol/L [place] Urea nitrogen [Mass/Vol] 11 mg/dL 6 - 20 mg/dL [place] HCG Screen, Bloodon 03-01-20 20 HCG Qn Negative Normal NEG [facility] Comment on above: Result Comment: Spec imens [...] DP, CRP, CP, TROPI, HCG, LD #### [facility] [address] [facility]. [place], [place] [id number] Sample Room Supervisor: Christopher Dorsey DO hCG Qual Negative NEGATIVE [place] Comment on above: Specimens with hCG [...] Interpretation and review of laboratory results Abnormal [place] LD 101 U/L Low 135 - 214 U/L [place] Lactate Dehydrogenaseon 02-04 LDH [Catalytic activity/Vol] 101 U/L Low 135-214 [facility] Comment on above: Performed By: #### C DP, CRP, CP, TROPI, HCG, LD #### [facility] [address] [facility]. [place], [place] [id number] Sample Room Supervisor: Christopher Dorsey DO Otheron 03-01-2020 Immature granulocytes (Bld) [#/Vol] NOT REPORTED [place] Troponinon 03-01-2020 Troponin I.cardiac [Mass/Vol] ng/mL Normal 0-14 [facility] Comment on above: Result Comment: High Sensitivity Troponin values cannot be compared with other Troponin methodologies. Patients with high levels of Biotin oral intake (i.e >5mg/day) may have falsely decreased Troponin levels. Samples collected within 8 hours of biotin intake may require additional information for diagnosis. Performed By: #### T DAVIDI #### [facility] [address] [facility] [place] [address] Sample Room Supervisor: Christopher Dorsey DO Troponin I.cardiac [Mass/Vol] NOT REPORTED Normal <0.03 [facility] Comment on above: Performed By: #### T DAVIDI #### [facility] [address] [facility] [place] [address] Sample Room Supervisor: Christopher Dorsey DO Troponin I.cardiac [Mass/Vol] ng/mL Normal 0-14 [facility] Comment on above: Result Comment: High Sensitivity Troponin values cannot be compared with other Troponin methodologies. Patients with high levels of Biotin oral intake (i.e >5mg/day) may have falsely decreased Troponin levels. Samples collected within 8 hours of biotin intake may require additional information for diagnosis. Performed By: #### C DP, CRP, CP, TROPI, HCG, LD #### [facility] [address] [facility] [place] [address] Sample Room Supervisor: Christopher Dorsey DO Troponin I.cardiac [Mass/Vol] NOT REPORTED [place] Troponin T.cardiac [Mass/Vol] NOT REPORTED <0.03 ng/mL [place] Troponin, High Sensitivity <6 0 - 14 ng/L [place] Comment on above: High Sensitivity Troponin values cannot be compared with other Troponin methodologies. Patients with high levels of Biotin oral intake (i.e >5mg/day) may have falsely decreased Troponin levels. Samples collected within 8 hours of biotin intake may require additional information for diagnosis. Troponin I.cardiac [Mass/Vol] NOT REPORTED Normal [facility] Comment on above: Performed By: #### C DP, CRP, CP, TROPI, HCG, LD #### [facility] [address] [place] [address] Sample Room Supervisor: Christopher Dorsey DO Troponin I.cardiac [Mass/Vol] NOT REPORTED [place] Troponin T.cardiac [Mass/Vol] NOT REPORTED <0.03 ng/mL [place] Troponin, High Sensitivity <6 0 - 14 ng/L [place] Comment on above: High Sensitivity Troponin [...] Wilfredo Andrade MD 03/01/20 Final result Normal [facility] No acute cardiopulmonary process. [place], [facility] Incoming Radiant Results From [facility] - 03/01/2020 10:19 AM EDT EXAMINATION: ONE [...] osseous abnormality. IMPRESSION: No acute cardiopulmonary process. [place] EXAMINATION: ONE XRA Y VIEW OF [...] unremarkable. There is no acute osseous abnormality. [place] Vital Signs Date Time Vital Sign Value Performing Clinician Facility 04-11-2025 12:07-0400 Body height 162.56 cm Emmie Liz ANALYTICAL CLERK Work Phone: [facility] 04-11-2025 12:07-0400 Body mass index (BMI) [Ratio] 36.6 kg/m2 Emmie Liz ANALYTICAL CLERK Work Phone: [facility] 04-11-2025 12:07-0400 Body weight 96.61 kg Emmie Liz ANALYTICAL CLERK Work Phone: [facility] 04-11-2025 12:07-0400 Diastolic blood pressure 90 mm[Hg] Emmie Liz ANALYTICAL CLERK Work Phone: [facility] 04-11-2025 12:07-0400 Heart rate 94 /min Emmie Liz ANALYTICAL CLERK Work Phone: [facility] 04-11-2025 12:07-0400 Systolic blood pressure 128 mm[Hg] Emmie Liz ANALYTICAL CLERK Work Phone: [facility] 01-16-2025 13:46-0400 Body height 162.6 cm Sherita Lowe PA Work Phone: [facility] 01-16-2025 13:46-0400 Body mass index (BMI) [Ratio] 35.87 kg/m2 Sherita Lowe PA Work Phone: [facility] 01-16-2025 13:46-0400 Body weight 94.8 kg Sherita Lowe PA Work Phone: [facility] 01-16-2025 13:46-0400 Diastolic blood pressure 80 mm[Hg] Sherita Lowe PA Work Phone: [facility] 01-16-2025 13:46-0400 Systolic blood pressure 118 mm[Hg] Sherita Lowe PA Work Phone: [facility] 11-06-2024 13:52-0500 Diastolic blood pressure 74 mm[Hg] Emmie Liz ANALYTICAL CLERK Work Phone: [facility] 11-06-2024 13:52-0500 Heart rate 75 /min Emmie Liz ANALYTICAL CLERK Work Phone: [facility] 11-06-2024 13:52-0500 Systolic blood pressure 119 mm[Hg] Emmie Liz ANALYTICAL CLERK Work Phone: [facility] 10-31-2024 08:23-0500 Body height 162.6 cm Sherita Lowe PA Work Phone: [facility] 10-31-2024 08:23-0500 Body mass index (BMI) [Ratio] 36.56 kg/m2 Sherita Lowe PA Work Phone: [facility] 10-31-2024 08:23-0500 Body weight 96.62 kg Sherita Lowe PA Work Phone: [facility] 10-31-2024 08:23-0500 Diastolic blood pressure 84 mm[Hg] Sherita Lowe PA Work Phone: [facility] 10-31-2024 08:23-0500 Systolic blood pressure 124 mm[Hg] Sherita Lowe PA Work Phone: [facility] 07-25-2024 14:32-0500 Body height 162.6 cm Saloni Hill PA Work Phone: [facility] 07-25-2024 14:32-0500 Body mass index (BMI) [Ratio] 36.9 kg/m2 Saloni Hill PA Work Phone: [facility] 07-25-2024 14:32-0500 Body weight 97.52 kg Saloni Hill PA Work Phone: [facility] 07-25-2024 14:32-0500 Diastolic blood pressure 86 mm[Hg] Saloni Piper PA Work Phone: [facility] 07-25-2024 14:32-0500 Heart rate 84 /min Saloni Piper PA Work Phone: [facility] 07-25-2024 14:32-0500 Respiratory rate 16 /min Saloni Piper PA Work Phone: [facility] 07-25-2024 14:32-0500 SaO2% (BldA) [Mass fraction] 97 % Saloni Piper PA Work Phone: [facility] 07-25-2024 14:32-0500 Systolic blood pressure 132 mm[Hg] Saloni Piper PA Work Phone: [facility] 03-01-2024 09:42-0400 Diastolic blood pressure 78 mm[Hg] OMKAR Olea Liz Work Phone: [facility] 03-01-2024 09:42-0400 Heart rate 88 /min ANALYTICAL CLERK Emmie Liz Work Phone: [facility] 03-01-2024 09:42-0400 Respiratory rate 20 /min ANALYTICAL CLERK Emmie Liz Work Phone: [facility] 03-01-2024 09:42-0400 SaO2% (BldA) [Mass fraction] 97 % ANALYTICAL CLERK Emmie Liz Work Phone: [facility] 03-01-2024 09:42-0400 Systolic blood pressure 117 mm[Hg] ANALYTICAL CLERK Emmie Liz Work Phone: [facility] 03-01-2024 09:41-0400 Body height 162.56 cm ANALYTICAL CLERK Emmie Liz Work Phone: [facility] 03-01-2024 09:41-0400 Body weight 95.25 kg ANALYTICAL CLERK Emmie Liz Work Phone: [facility] 02-22-2024 13:17-0400 Body height 162.56 cm [facility] 02-22-2024 13:17-0400 Body mass index (BMI) [Ratio] 36.6 kg/m2 [facility] 02-22-2024 13:17-0400 Body weight 96.78 kg [facility] 02-22-2024 13:17-0400 Diastolic blood pressure 78 mm[Hg] [facility] 02-22-2024 13:17-0400 Heart rate 71 /min [facility] 02-22-2024 13:17-0400 Respiratory rate 18 /min [facility] 02-22-2024 13:17-0400 SaO2% (BldA) [Mass fraction] 98 % [facility] 02-22-2024 13:17-0400 Systolic blood pressure 116 mm[Hg] [facility] 03-01-2020 12:15-0400 BP Diastolic 57 mm[Hg] [facility] [place] 03-01-2020 12:15-0400 BP Systolic 98 mm[Hg] [facility] 03-01-2020 12:15-0400 Pulse (Heart Rate) 61 /min [facility] [place] 03-01-2020 12:15-0400 Pulse Oximetry 100 % [facility] 03-01-2020 12:15-0400 Respiratory Rate 14 /min [place] 03-01-2020 09:00-0400 BMI (Body Mass Index) 31.76 kg/m2 [place], [place] 03-01-2020 09:00-0400 Body Temperature 97.9 [degF] Princess [employer] [place] 03-01-2020 09:00-0400 Body weight 83.92 kg [facility] [employer] 03-01-2020 09:00-0400 Height 162.6 cm Princess [place], [place] Encounters Encounter Date Encounter Type Care Provider Facility Start: 04-15-2025 End: 04-15-2025 ambulatory Emmie Liz ANALYTICAL CLERK Work Phone: [facility] Work Phone: Start: 04-15-2025 End: 04-15-2025 Patient encounter procedure Sherita Ferrara APRN -[facility] Work Phone: Start: 01-16-2025 End: 01-16-2025 Bamboo flowsheet Sherita Lowe PA Work Phone: [facility] Start: 01-16-2025 End: 01-16-2025 Bamboo flowsheet Sherita Lowe PA Work Phone: [facility] Start: 01-16-2025 End: 01-16-2025 Office outpatient visit 25 minutes Sherita Lowe PA Work Phone: [facility] Comment on above: Brain fog (Primary D x); Neuropathic pain; Migraine without aura and without status migrainosus, not intractable (CMS/HCC); Paresthesia Start: 01-16-2025 End: 01-16-2025 ambulatory SHERITA LOWE Not Available Start: 11-06-2024 End: 11-06-2024 Discharged Recurring Emmie SueNeal ANALYTICAL CLERK Work Phone: [facility] Work Phone: Start: 11-06-2024 End: 11-06-2024 ambulatory Emmie SueNeal ANALYTICAL CLERK Work Phone: [facility] Work Phone: Start: 10-31-2024 End: 10-31-2024 Bamboo flowsheet Sherita Lowe PA Work Phone: [facility] Start: 10-31-2024 End: 10-31-2024 Bamboo flowsheet Sherita Lowe PA Work Phone: [facility] Start: 10-31-2024 End: 10-31-2024 Office outpatient visit 25 minutes Sherita Lowe PA Work Phone: [facility] Comment on above: Neuropathic pain (Pr imary Dx); Migraine without aura and without status migrainosus, not intractable (CMS/HCC); Paresthesia; Brain fog; Gait instability; Muscle cramps Start: 10-31-2024 End: 10-31-2024 ambulatory SHERITA RODRIGUEZ Not Available Start: 09-03-2024 End: 09-10-2024 Telephone encounter Audra Briscoe MA [facility] [place] [address] Start: 08-20-2024 End: 08-20-2024 Telephone encounter Ezequiel Elena Conklin DO Work Phone: Neurology Comment on above: CALL - IMPORT[employer] ONOMIC TESTING INSTRUCTIONS FOR QSART Start: 07-31-2024 End: 07-31-2024 Orders Only Pippa Real MD Work Phone: Neurology [facility] Comment on above: Paresthesia (Primary Dx) Start: 07-30-2024 End: 07-30-2024 ambulatory PATRICIA PIPER Facility[facility] Start: 07-30-2024 End: 07-30-2024 Patient encounter procedure SALONI PIPER [facility] Start: 07-25-2024 End: 07-25-2024 Office outpatient visit 25 minutes Saloni GREER Work Phone: [facility] Comment on above: Migraine without aur a and without status migrainosus, not intractable (CMS/HCC) (Primary Dx); Paresthesia; Hyper reflexia; Vision changes; Muscle cramps Start: 07-25-2024 End: 07-25-2024 ambulatory SALONI PIPER Not Available Start: 07-25-2024 End: 07-25-2024 Bamboo flowsheet Saloni GREER Work Phone: [facility] Start: 07-25-2024 End: 07-25-2024 Bamboo flowsheet Saloni GREER Work Phone: [facility] Start: 07-03-2024 End: 07-03-2024 Bamboo flowsheet Louie Chavez MD Work Phone: [facility] [place] [address] Start: 07-03-2024 End: 07-03-2024 Bamboo flowsheet Louie Chavez MD Work Phone: [facility] [address] Start: 07-03-2024 End: 07-03-2024 ambulatory LOUIE CHAVEZ Not Available Start: 04-10-2024 End: 04-10-2024 ambulatory SALONI PIPER Not Available Start: 03-14-2024 End: 03-22-2024 Pre-admission assessment SALONI PPIER [facility] Start: 03-14-2024 End: 03-14-2024 ambulatory SALONI PIPER Not Available Start: 03-01-2024 End: 03-01-2024 Patient encounter procedure OMKAR Olea McNeal Work Phone: [facility] [place] Work Phone: Start: 03-01-2024 End: 03-01-2024 ambulatory OMKAR Olea McNeal Work Phone: [facility] Work Phone: Start: 02-22-2024 End: 02-22-2024 ambulatory [facility] Work Phone: Start: 02-22-2024 End: 02-22-2024 Patient encounter procedure [facility] Work Phone: Start: 01-19-2023 [facility] Facility:H1 Start: 01-11-2023 End: 01-11-2023 ambulatory [facility] Facility:H1 Start: 12-29-2022 ambulatory Jimmie Bolaños [facility] Start: 12-18-2022 End: 12-18-2022 ambulatory [facility] Facility:H1 Start: 11-12-2022 End: 11-13-2022 ambulatory [facility] Facility:H1 Start: 11-02-2022 End: 11-02-2022 ambulatory [facility] Facility:H1 Start: 10-22-2022 End: 10-22-2022 ambulatory [facility] Facility:H1 Start: 09-06-2022 End: 09-06-2022 ambulatory GLENN JIN Facility:H1 Start: 08-05-2022 End: 08-05-2022 ambulatory Mukund Calixa Other Diurnal Other Start: 08-05-2022 Telephone encounter Mukund Rodriguez [facility] Start: 06-28-2022 End: 06-28-2022 ambulatory NON STAFF [facility] Work Phone: Start: 06-28-2022 End: 06-28-2022 Patient encounter procedure MD Mukund Rodriguez Work Phone: [facility] Start: 06-18-2022 End: 06-18-2022 ambulatory Christopher Mendoza Other Diurnal Other Start: 06-18-2022 Telephone encounter Christopher Law [facility] Start: 05-17-2022 End: 05-17-2022 ambulatory [facility] Facility: Start: 05-05-2022 End: 05-06-2022 ambulatory MUKUND CALINUBIA Facility: Start: 05-04-2022 End: 05-04-2022 ambulatory Radha Arciniega Other Diurnal Other Start: 05-04-2022 Office outpatient vi sit 15 minutes Radha Arciniega [facility] Start: 04-26-2022 End: 04-26-2022 ambulatory Mukund Rodriguez Other Diurnal Other Start: 04-26-2022 Office outpatient vi sit 15 minutes Mukund Rodriguez [facility] Start: 04-20-2022 End: 04-20-2022 Patient encounter procedure MD Mukund Rodriguez Work Phone: [facility] [address] Start: 04-16-2022 End: 04-16-2022 ambulatory [facility] Facility:H1 Start: 04-15-2022 Encounter for preprocedural laboratory examination DR CHARLES MARRERO . [facility] Start: 04-13-2022 End: 04-14-2022 Encounter for preprocedural laboratory examination [facility] Facility:H1 Start: 04-13-2022 End: 04-14-2022 ambulatory [facility] Facility:H1 Start: 04-12-2022 End: 04-12-2022 ambulatory Mukund Rodriguez Other Diurnal Other Start: 04-12-2022 Telephone encounter Mukund Rodriguez [facility] Start: 03-23-2022 End: 03-23-2022 ambulatory [facility] Facility:H1 Start: 03-19-2022 [facility] Facility: Start: 03-08-2022 End: 03-08-2022 [facility] Facility: Start: 03-01-2022 End: 03-01-2022 ambulatory Mukund Jennifer Other Diurnal Other Start: 03-01-2022 Office outpatient ne w 45 minutes Mukund Calixa [facility] Start: 02-27-2022 End: 02-28-2022 ambulatory [facility] Facility:H1 Start: 02-23-2022 End: 02-23-2022 ambulatory [facility] Facility:H1 Start: 03-01-2020 End: 03-01-2020 Emergency department patient visit [facility] Start: 03-01-2020 End: 03-01-2020 Emergency department patient visit Princess [place] Work Phone: [facility] ED Comment on above: Bronchitis (Primary Dx) Procedures Date Procedure Procedure Detail Performing Clinician Start: 03-01-2024 XR pre/post mri xray AP RN Emmie Hill Work Phone: Start: 03-01-2024 MRI of cervical spin e with contrast ANALYTICAL CLERK Emmie Hill Work Phone: Start: 03-01-2024 MRI of thoracic spin e with contrast ANALYTICAL CLERK Emmie Hill Work Phone: Start: 04-20-2022 MRI of [...] Visit [facility] [address] [place] [id number] Sherita Rodriguez PA [address] [place] [address] Arrived [facility] Comment on above: Arrived Start: 11-28-2024 End: 11-28-2024 Patient encounter procedure 11/28/2024 8:20 AM EDT Office Visit [facility] [address] [place] [phone] Sherita Rodriguez PA [address] [place] [address] [facility] Start: 10-31-2024 End: 10-31-2025 MR Brain WO and W contrast IV MR brain w and wo contrast routine Imaging Routine Neuropathic pain Migraine without aura and without status migrainosus, not intractable (CMS/HCC) Expected: 10/31/2024 (Approximate), Expires: 10/31/2025 [facility] Work Phone: Comment on above: Expected: 10/31/2024 (Approximate), Expires: 10/31/2025 Start: 10-31-2024 End: 10-31-2024 Patient encounter procedure 10/31/2024 8:40 AM EST Office Visit [place] [address] [place] [phone] Sherita Rodriguez PA [address] [place], [place] [id number] Arrived [facility] Comment on above: Arrived Start: 10-10-2024 End: 10-10-2024 Patient encounter procedure 10/10/2024 12:00 PM EST Office Visit [facility] [address] [place] [phone] Sherita Rodriguez PA [address] [place] [address] [facility] Start: 09-25-2024 End: 09-25-2024 Patient encounter procedure 09/25/2024 3:00 PM EST Office Visit [facility] [place] [address] [facility] [place] [phone] Louie Chavez MD [address] [place] [address] [facility] [place] [address] Start: 09-10-2024 End: 09-10-2025 MR Brain WO and W contrast IV MR brain w and wo contrast routine Imaging Routine Vision changes Hyper reflexia Expected: 09/10/2024 (Approximate), Expires: 09/10/2025 [facility] Work Phone: Comment on above: Expected: 09/10/2024 (Approximate), Expires: 09/10/2025 Start: 09-10-2024 End: 09-10-2025 MRA Head vessels WO contrast MR angiogram head wo IV contrast Imaging Routine Vision changes Expected: 09/10/2024 (Approximate), Expires: 09/10/2025 [facility] Comment on above: Expected: 09/10/2024 (Approximate), Expires: 09/10/2025 Start: 09-10-2024 End: 09-10-2025 MRA Neck vessels WO contrast MR angiogram neck wo IV contrast Imaging Routine Vision changes Expected: 09/10/2024 (Approximate), Expires: 09/10/2025 [facility] Comment on above: Expected: 09/10/2024 (Approximate), Expires: 09/10/2025 Start: 08-30-2024 End: 08-30-2024 ambulatory 08/30/2024 9:15 AM EST Procedure Neurology [address] [place] [address] r [facility] Comment on above: r OMD QSART Start: 07-26-2024 End: 07-26-2025 MISCELLANEOUS REFERRAL MISCELLANEOUS REFERRAL Lab Routine Paresthesia Expected: 07/26/2024 (Approximate), Expires: 07/26/2025 [facility] Comment on above: Expected: 07/26/2024 (Approximate), Expires: 07/26/2025 Start: 07-25-2024 End: 07-25-2024 Patient encounter procedure 07/25/2024 2:40 PM EST Office Visit [facility] [place] [facility] [address] [place] [phone] Saloni Piper PA [address] [place] [address] Arrived [facility] Comment on above: Arrived Start: 07-25-2024 End: 07-25-2025 Aldolase Aldolase Lab Routine Muscle cramps Expected: 07/25/2024 (Approximate), Expires: 07/25/2025 [facility] Comment on above: Expected: 07/25/2024 (Approximate), Expires: 07/25/2025 Start: 07-25-2024 End: 07-25-2025 Cobalamin (Vitamin B12) [Mass/volume] in Serum or Plasma Vitamin B12 Lab Routine Paresthesia Muscle cramps Expected: 07/25/2024 (Approximate), Expires: 07/25/2025 [facility] Comment on above: Expected: 07/25/2024 (Approximate), Expires: 07/25/2025 Start: 07-25-2024 End: 07-25-2025 Creatine kinase [Enzymatic activity/volume] in Serum or Plasma CK Lab Routine Muscle cramps Expected: 07/25/2024 (Approximate), Expires: 07/25/2025 [facility] Work Phone: Comment on above: Expected: 07/25/2024 (Approximate), Expires: 07/25/2025 Start: 07-25-2024 End: 07-25-2025 Folate [Mass/volume] in Serum or Plasma Folate Lab Routine Paresthesia Muscle cramps Expected: 07/25/2024 (Approximate), Expires: 07/25/2025 [facility] Comment on above: Expected: 07/25/2024 (Approximate), Expires: 07/25/2025 Start: 07-25-2024 End: 07-25-2025 Methylmalonate [Moles/volume] in Serum or Plasma Methylmalonic acid, serum Lab Routine Paresthesia Muscle cramps Expected: 07/25/2024 (Approximate), Expires: 07/25/2025 [facility] Comment on above: Expected: 07/25/2024 (Approximate), Expires: 07/25/2025 Start: 07-25-2024 End: 07-25-2025 Myoglobin, serum Myoglobin, serum Lab Routine Muscle cramps Expected: 07/25/2024 (Approximate), Expires: 07/25/2025 [facility] Comment on above: Expected: 07/25/2024 (Approximate), Expires: 07/25/2025 Start: 07-25-2024 End: 07-25-2025 Visual evoked potential test Visual evoked potential test Neurology Routine Vision changes Expected: 07/25/2024 (Approximate), Expires: 07/25/2025 [facility] Comment on above: Expected: 07/25/2024 (Approximate), Expires: 07/25/2025 Start: 07-03-2024 End: 07-03-2024 Patient encounter procedure 07/03/2024 9:30 AM EDT Procedure Visit [facility] [address] [place] [address] Louie Chavez MD [address] [place] [address] Arrived [facility] Comment on above: Arrived Start: 05-06-2024 Covid-19 Vaccine ( season) Covid-19 Vaccine ( season) [facility] Start: 05-06-2024 Influenza vaccination Influenza Vacc ine (#1) [facility] Start: 05-06-2020 Influenza vaccination Flu vacc ine (Season Ended) [place] Start: 2014 Screening for malign ant neoplasm of cervix [facility] Start: 2005 Screening for malign ant neoplasm of cervix [facility] Start: 2003 DTaP/Tdap/Td vaccine (1 - Tdap) DTaP/Tdap/Td vaccine (1 - Tdap) [place] Start: 2003 Hepatitis B Vaccine (1 of 3 - 19+ 3-dose series) Hepatitis B Vaccine (1 of 3 - 19+ 3-dose series) [facility] Start: 2003 Urine microalbumin profile DTaP,Tdap,Td Vaccine (1 - Tdap) [facility] Start: 2002 Anxiety Screening Anxiety Screening [facility] Start: 2002 Depression Screening Depression Scre mihir [facility] Start: 2002 Hepatitis C screening Hepatitis C Sc reening [facility] Start: 2002 HIV screening HIV Screening [facility] Start: 1999 HIV screening [facility] Start: 1990 Pneumococcal 0-64 ye ars Vaccine (1 of 1 - PPSV23) Pneumococcal 0-64 years Vaccine (1 of 1 - PPSV23) [facility] Start: 1985 Varicella vaccine (1 of 2 - 2-dose childhood series) Varicella vaccine (1 of 2 - 2-dose childhood series) [facility] 12 Lead EKG 12 Lead ECG STAT 03/01/2020 9:20 AM EDT [facility] Q[facility] NEURO QSART Proc edures Routine Paresthesia Ordered: 07/31/2024 [facility] Work Phone: Comment on above: Ordered: 07/31/2024 Payers Date Payer Category Payer Medicaid [facility] MEDICAID [id number] 2023-Present [phone] [address] [place], [place] [id number] Medicaid [id number] 2023 Private Health Insurance [facility] [id number] 2020 Medicaid [facility] [place] xxxxxxxxxxxx 2020-Present [phone] [address] [address] [place] [address] xxxxxxxxxxxx [id number] 1984 Unknown [id number] 2.16.840.1.490776.3.579. 2.176 1984 Unknown [id number] 2.16.840.1.593914.3.579. 2.593 1984 Unknown [id number] 2.16.840.1.270422.3.579. 2.593 1984 Unknown [id number] 2.16.840.1.870078.3.579. 2.593 1984 Unknown [id number] 2.16.840.1.412446.3.579. 2.593 1984 Unknown [id number] 2.16.840.1.249224.3.579. 2.593 1984 Unknown [id number] 2.16.840.1.920296.3.579. 2.593 1984 Unknown [id number] 2.16.840.1.955302.3.579. 2.593 1984 Unknown [id number] 2.16.840.1.909861.3.579. 2.593 1984 Unknown [id number] 2.16.840.1.028401.3.579. 2.593 1984 Unknown [id number] 2.16.840.1.504967.3.579. 2.593 1984 Unknown [id number] 2.16.840.1.382310.3.579. 2.593 1984 Unknown [id number] 2.16.840.1.842024.3.579. 2.593 1984 Unknown [id number] 2.16.840.1.312078.3.579. 2.593 1984 Unknown [id number] 2.16.840.1.682792.3.579. 2.593 1984 Unknown [id number] 2.16.840.1.449139.3.579. 2.593 1984 Unknown [id number] 2.16.840.1.585123.3.579. 2.593 1984 Unknown [id number] 2.16.840.1.290514.3.579. 2.593 1984 Unknown [id number] 2.16.840.1.197151.3.579. 2.727 1984 Unknown [id number] 2.16.840.1.779299.3.579. 2.1259 1984 Unknown [id number] 2.16.840.1.858888.3.579. 2.1259 1984 Unknown [id number] 2.16.840.1.601796.3.579. 2.9 1984 Unknown [id number] 2.16.840.1.603855.3.579. 2.1259 1984 Unknown [id number] 2.16.840.1.061788.3.579. 2.1259 1984 Unknown [id number] 2.16.840.1.873886.3.579. 2.1259 1959 Medicaid [id number] 1959 Self-pay 1959 Unknown [id number] 2.16.840.1.519297.19 1959 Unknown [id number] 1959 Unknown [id number] Unknown [id number] 2.16840.1.087466.19 Unknown [id number] 2.16.840.1.740004.19 Unknown [id number] 2.16.840.1.191660.3.579. 2.531 Unknown [id number] 2.16.840.1.718537.3.579. 2.531 Worker's Compensation [id number] Worker's Compensation [facility] [id number] Social History Date Type Detail Facility Start: 03-01-2020 End: 04-11-2025 Tobacco smoking status NHIS Current every day smoker [facility] Start: 09-05-1997 History of tobacco use Cigarette Smo ker [facility] Start: 03-01-2020 Alcohol intake Ex-drinker (finding) [place] Start: 1985 Sex Assigned At Not on file M [place] Exposure to SARS-CoV -2 (event) Unable to assess [place] Start: 04-10-2024 End: 10-31-2024 Sex Assigned At [facility] Start: 1985 Sex Assigned At Female F [facility] Start: 02-22-2024 End: 02-22-2024 Tobacco smoking status NHIS Smoker (finding) [facility] Tobacco smoking status No Smokin g Status Entered [facility] Start: 03-14-2024 End: 10-31-2024 Cigarettes smoked current (pack per day) - Reported 0.5 [facility] Start: 03-14-2024 Tobacco use and exposure Smokeless tobacco non-user [facility] Start: 04-10-2024 End: 10-31-2024 Alcoholic beverage intake Lifetime non-drinker (finding) [facility] Start: 12-29-2023 Tobacco Comment Smokes 5 mins after waking up [facility] Start: 12-29-2023 Alcohol Comment caffeine: daily [facility] Tobacco smoking stat us MTIS Tobacco smoking consumption unknown [facility] Start: 11-06-2024 Sex Female (finding) [facility] Clinical Notes 03-01-2022 to 01-16-2025 PERCY Mcdaniel - 01/16/2025 8:40 AM EDTAPERCY Dunlap - 10/31/2024 8:40 AM ESTTelephone Encounter - [...] Past Medical History: Diagnosis Date Anxiety Asthma ([facility]) Bipolar 1 disorder ([facility]) Borderline personality disorder in adult ([facility]) Class 2 obesity COPD (chronic obstructive pulmonary disease) ([facility] Depression, controlled ([facility] Eating disorder ([facility]) GERD (gastroesophageal reflux disease) Insomnia Post-traumatic stress ([facility]) Answers submitted by the patient for this [...] Crossed adductor present. Positive finger flexors. Coordination [id number]-pm-[id number], rapid alternating movements and kkyg-as-lwju normal bilaterally without dysmetria. Heart: Regular rate [...] up 2 months documented in this encounter [facility] 10-31-2024 History of Presen t illness Narrative Images from the original note were not included. Subjective Lilly Beckham is a 38 year old female Chief Complaint Patient presents with Migraine Past Medical History: Diagnosis Date Anxiety Asthma ([facility]) Bipolar 1 disorder ([facility] Borderline personality disorder in adult ([facility]) Class 2 obesity COPD (chronic obstructive pulmonary disease) ([facility]) Depression, controlled ([facility]) Eating disorder ([facility]) GERD (gastroesophageal reflux disease) Insomnia Post-traumatic stress ([facility]) Answers submitted by the patient for this [...] Crossed adductor present. Positive finger flexors. Coordination Wohjuy-xh-nsux, rapid alternating movements and gmhr-re-abng normal bilaterally without dysmetria. Heart: Regular rate [...] up after testing. documented in this encounter [facility] 09-10-2024 Telephone encounter Note Ordered. [facility] 09-10-2024 Miscellaneous Notes Ordered. She is [...] appt but she could only go to [place] and will not be coming in until 09/25. She went TB. Is there anything to do in the meantime. I called [facility] and they are faxing records. I did advise that we did not have providers in until and if symptoms became bothersome or concerning go back to the ER. Stated understanding. documented in this encounter [facility] 09-10-2024 Telephone encounter Note She is willing to have MRI and MRA done. TB [facility] 09-10-2024 Telephone encounter Note Records reviewed. [facility] 09-03-2024 Telephone encounter Note Patient states that she went into the ER over the weekend with a migraine, loss of vision in her left eye. Numbness in the one side of the body. She states that they did not change her medications. I did schedule her for a sooner appt but she could only go to [place] and will not be coming in until 09/25. She went TB. Is there anything to do in the meantime. I called [facility] and they are faxing records. I did advise that we did not have providers in until and if symptoms became bothersome or concerning go back to the ER. Stated understanding. [facility] 08-20-2024 Telephone encounter Note Spoke with Lilly [...] without consulting their prescribing physician. [facility] recommended the following medication [...] to take after the test, if necessary [facility] 08-20-2024 Miscellaneous Notes Spoke with Lilly [...] without consulting their prescribing physician. [facility] recommended the following medication [...] if necessary documented in this encounter [facility] 07-31-2024 Note Addended by: EMERITA GARCIA on: 07/31/2024 03:28 PM Modules accepted: Orders [facility] 07-31-2024 Miscellaneous Notes Addended by: EMERITA GARCIA on: 07/31/2024 03:28 PM Modules accepted: Orders documented in this encounter [facility] 07-25-2024 History of Presen t illness Narrative Subjective Lilly Beckham is a 38 year old female Chief Complaint Patient presents with Migraine Past Medical History: Diagnosis Date Anxiety Asthma ([facility]/HCC) Bipolar 1 disorder ([facility]/HCC) Borderline personality disorder in adult ([facility]/HCC) Class 2 obesity COPD (chronic obstructive pulmonary disease) ([facility]/HCC) Depression, controlled ([facility]/HCC) Eating disorder ([facility]) GERD (gastroesophageal reflux disease) Insomnia Post-traumatic stress ([facility]) Past Surgical History: Procedure Laterality [...] Crossed adductor present. Positive finger flexors. Coordination Mvvglt-xw-grgj, rapid alternating movements and plqp-jl-ymzm normal bilaterally without dysmetria. Heart: Regular rate [...] effects from medications. documented in this encounter [facility] 03-12-2024 Note HNO ID: [id number] Author: GRANT FARLEY, PhD Service: ? Author Type: Psychologist Type: Progress Notes Filed: 03/12/2024 11:13 Note Text: [facility] Receipt of Outside Records Lilly Beckham [id number] 03/12/2024 On IPW completed 02/23/24, pt endorsed bipolar disorder diagnosis >2 years ago; 2-4 psychotropic medications. Received records via fax (dated 03/06/24) from [facility]. The following information was obtained [...] ; last hospitalization was in 2011 at [facility] in [place] Hx self-injurious behavior- I used to cut [...] reconsideration. Grant Farley, Ph.D. Clinical Health Psychologist [facility] 06-18-2022 Evaluation note Encounter Date Diagnosis Assessment Notes Jun, Dyspepsia (ICD-10 - R10.13) [facility] Other 08-30-2022 Evaluation note* Encounter Date Diagnosis Assessment Notes Treatment Notes Treatment Clinical Notes Apr, Sprain of other ligament of left knee, initial encounter (ICD-10 - S83.8X2A) [facility], patient approved for cortisone injections today. Risks and benefits discussed in detail with patient. Patient voiced understanding and agreed to proceed with treatment plan. We performed a 1/1cc marcaine / kenalog cortisone injection into the knee joint under sterile technique. Patient tolerated the injection well without adverse reaction. Patient to continue off work at this time. [facility] Other 08-22-2022 Evaluation note* Encounter Date Diagnosis [...] We will order formal physical therapy through [facility], as well as cortisone injection to decrease pain/inflammation. Patient to continue off work at this time. [facility] Other 08-12-2022 NoteOPERATIVE NOTE OPERATION DATE: 04/16/2022 PROCEDURE: Melina endometrial ablation with diagnostic laparoscopy. PREOPERATIVE DIAGNOSIS: Menorrhagia, dyspareunia. POSTOPERATIVE DIAGNOSIS: Menorrhagia, dyspareunia. ANESTHESIA: General. SURGEON: Charles Marrero D.O. MACHINE GUIDE BASE WINDER: ANDIE Jason URINE OUTPUT: Yellow and clear. [...] Recovery Room in stable condition. [id number]* Encounter Date Diagnosis Assessment Notes Treatment Notes Treatment Clinical Notes Apr, Sprain of other ligament of left knee, initial encounter (ICD-10 - S83.8X2A) [facility] Other 06-27-2022 Evaluation note* Encounter Date Diagnosis [...] MRI. Patient is to be off work [facility] Other Chief complaint+Reason for visit Narrative* Chief Complaint Self-[place] Reason for Visit Dietary surveillance and counseling Obesity, Class II, BMI 35-39.9 PCOS (polycystic ovarian syndrome) [facility] Work Phone: Chief complaint+Reason for visit Narrative* Chief Complaint Self-[place] r20.2 r29.2 Reason for Visit Dietary surveillance and counseling Obesity, Class II, BMI 35-39.9 PCOS (polycystic ovarian syndrome) [facility] Work Phone: Evaluation + Plan note No data available for this section [facility] assessment information available [facility] Work Phone: Evaluation noteNo InformationNort Beem Other Evaluation note* Diagnosis Onset Date Resolution Status Dietary surveillance and counseling acute Obesity, Class II, BMI 35-39.9 acute PCOS (polycystic ovarian syndrome) acute [facility] Work Phone: Evaluation note* Diagnosis Migraine without aura and without status migrainosus, not intractable (CMS/HCC)- Primary Paresthesia Disturbance of skin sensation Hyper reflexia Abnormal reflex Vision changes Muscle cramps documented in this encounter [facility]* Diagnosis Paresthesia- Primary Disturbance of skin sensation [facility] Paresthesia- Primary Disturbance of skin sensation [facility] Vision changes- Primary Hyper reflexia Abnormal reflex documented in this encounter [facility] HealthcareEvaluation note* Diagnosis Neuropathic pain- Primary Migraine without aura and without status migrainosus, not intractable (CMS/HCC) Paresthesia Disturbance of skin sensation Brain fog Gait instability Abnormality of gait Muscle cramps documented in this encounter [facility] HealthcareEvaluation note* Diagnosis Brain fog- Primary Neuropathic pain Migraine without aura and without status migrainosus, not intractable (CMS/HCC) Paresthesia Disturbance of skin sensation documented in this encounter [facility] HealthcareHistory general Narrative - Reported* Type Description Date Medical History endometriosis Surgical History c-sections x2 Surgical History apendectomy Surgical History hernia removal Hospitalization History see above [facility] Other Hospital Discharge instructions No data available for this section [facility] No data available for this section [facility] (narrative)No reason for referral [facility] available[facility] Work Phone: Summary Purpose Family History Relationship Condition Age at Onset Recorded Date/T [...] Obesity Unknown Bipolar disorder Unknown Advance Directives Documents on File Type Date Recorded Patient Repeater Chief Expl anation Advance Directives and Living Will Power of Chemistry Specialist Advance Directive Response Recorded Date/ Time Advance Directives No April 12 022 1:36pm Advance Directive Response Recorded Date/ Time Advance Directives No January 22 4 9:36am Advance Directive Response Recorded Date/ Time Advance Directives No January 22 4 8:36am Advance Directive Response Recorded Date/ Time Advance Directives No April 11 025 12:07pm Discharge Instructions * Instructions* Princess Buchanan, - [...] be sent through Care Everywhere. * Bronchitis ([place]ux[place]bourgish) documented in this encounter Assessments Diagnosis Bronchitis Bronchitis, not specified as acute or chronic Chief Complaint and Reason for Visit Chief Complaint s83.8x2a Dyspepsia Chief Complaint Admit Date MIGRAINES November 06, 2024 1:33 pm Additional Source Comments INFORMATION SOURCE (unrecogn ized section and content) DATE CREATED AUTHOR 03/27/2020 [facility] DATE CREATED AUTHOR AUTHOR'S ORGANIZ ATION 12/31/2022 [facility] DATE CREATED AUTHOR AUTHOR'S ORGANIZ ATION 01/20/2023 [facility] [place] [facility] DATE CREATED AUTHOR AUTHOR'S ORGANIZ ATION 08/06/2024 Matt Conway [facility] DATE CREATED AUTHOR AUTHOR'S ORGANIZ ATION 08/21/2024 [facility] DATE CREATED AUTHOR AUTHOR'S ORGANIZ ATION 11/08/2024 [facility] DATE CREATED AUTHOR AUTHOR'S ORGANIZ ATION 01/17/2025 [facility] dical Specialists EPIC Reason for Visit [...] March 01, 2024 End: March 01, 2024 Organizational Development Director Relationship Specialty Start Date End Date Charles Marrero DO [address] [place] [address] [place] [phone] PCP - [facility] 03/05/24 Organizational Development Director Relationship Specialty Start Date End Date Saloni Piper PA [address] [place] [phone] Physician Plans Examiner Neurology 07/25/24 Louie Chavez MD [address] [place] [phone] Referring Physician Neurology 07/25/24 Organizational Development Director Relationship Specialty Start Date End Date Saloni Piper PA [address] [place] [phone] Physician Plans Examiner Neurology 07/25/24 Louie Chavez MD [address] [place] [phone] Referring Physician Neurology 07/25/24 Organizational Development Director Relationship Specialty Start Date End Date Saloni Piper PA [address] [place] [phone] Physician Plans Examiner Neurology 07/25/24 Louie Chavez MD [address] [place] [phone] Referring Physician Neurology 07/25/24 Organizational Development Director Relationship Specialty Start Date End Date Saloni Piper PA [address] [place] [phone] Physician Plans Examiner Neurology 07/25/24 Louie Chavez MD [address] [place] [phone] Referring Physician Neurology 07/25/24 Organizational Development Director Relationship Specialty Start Date End Date Saloni Piper PA [address] [place] [address] Physician Plans Examiner Neurology 07/25/24 Louie Chavez MD [address] [place] [phone] Referring Physician Neurology 07/25/24 Team Status: Inactive Member Role Status Dates Emmie Hill APRN Primary Care Provider Active Start: November 06, 2024 End: November 06, 2024 Sherita Rodriguez PA-C Attending Provider, Referring Provider Active Start: November 06, 2024 End: November 06, 2024 Organizational Development Director Relationship Specialty Start Date End Date Santo Ryan MD [address] [place], [place] [phone] PCP - General Family Medicine 12/17/24 Saloni Piper PA [address] [place] [phone] Physician Plans Examiner Neurology 07/25/24 Sherita Rodriguez PA [address] [place] [address] Physician Plans Examiner Neurology 12/17/24 Organizational Development Director Relationship Specialty Start Date End Date Santo Ryan MD [address] [place] [address] PCP - General Family Medicine 12/17/24 Saloni Piper PA [address] [place] [address] Physician Plans Examiner Neurology 07/25/24 Sherita Rodrgiuez PA [address] [place], [place] [phone] Physician Plans Examiner Neurology 12/17/24 Team Status: Inactive Member Role Status Dates Emmie Hill APRN Primary Care Provider Active Start: April 15, 2025 End: April 15, 2025 Sherita Calle APRN Attending Provider Active Start: April 15, 2025 End: April 15, 2025 Goals (unrecognized section and content) Goals may be documented in a n alternate section Source Comments (unrecognize d section and content) In the event this informatio n is protected by the Federal Confidentiality of Alcohol and Drug Abuse Patient Records regulations: The Federal rules restrict any use of the information to criminally investigate or prosecute any alcohol or drug abuse patient.[facility] the event this information is protected by the Federal Confidentiality of Alcohol and Drug Abuse Patient Records regulations: The Federal rules restrict any use of the information to criminally investigate or prosecute any alcohol or drug abuse patient.[facility] Hospital[facility] the event this information is protected by the Federal Confidentiality of Alcohol and Drug Abuse Patient Records regulations: The Federal rules restrict any use of the information to criminally investigate or prosecute any alcohol or drug abuse patient.[facility] FOR RECORDS PERTAINING TO PATIENTS WHO [...] BE BASED ON THE PRIMARY CLINICAL RECORDS. [facility]. provides no warranty or guarantee of the accuracy or completeness of information in this document.
--- NOTE | 2025-04-22 10:16 | CT_ITS ---
The [address] [address] Patient Name: COY SAMUEL MRN: [id number] date: 1985 Sex: F Assigned Patient Location: ER Current Patient Location: Accession/Order Number: [id number] Exam Date: 04/22/2025 11:51 Report Date: 04/22/2025 12:02 At the request of: DIANE PRIEST DO Procedure: CT head/brain wo con CT head/brain wo con 04/22/2025 11:38 AM SIGNS AND SYMPTOMS: ^pain and weakness to the left side TECHNIQUE:Multi-detector CT axial slices of the brain were obtained without IV contrast. CT was performed with one or more of the following dose reduction techniques: Automated exposure control, adjustment of the mA and/or kV according to patient size, or use of iterative reconstruction technique. COMPARISON: 01/10/2024. FINDINGS: There is no shift of the midline structures, acute intracranial bleeding, mass effects, or evidence of acute ischemia. The ventricular system is normal in size. The brainstem and the cerebellum are unremarkable. The visualized intraorbital contents, the visualized paranasal sinuses, and the infratemporal soft tissues show no acute abnormality. The osseous structures in the skull base and the calvarium show no abnormality. CT/CT head/brain wo con IMPRESSION: No acute intracranial pathology. Impression dictated by: Tray Orourke M.D. 04/22/2025 12:02 PM Dictation Location: [place] [address] Electronically authenticated by: [id number] Y Date: 04/22/2025 12:02
--- NOTE | 2025-04-22 10:16 | CT_ITS ---
[address] [address] Patient Name: COY SAMUEL MRN: [id number] date: 1985 Sex: F Assigned Patient Location: ER Current Patient Location: Accession/Order Number: [id number] Exam Date: 04/22/2025 12:02 Report Date: 04/22/2025 12:12 At the request of: DIANE PRIEST DO Procedure: CT cervical spine wo con CT cervical spine wo con 04/22/2025 11:38 AM SIGN AND SYMPTOMS: Pain in the occipital scalp radiating down spine TECHNIQUE: Multi detector CT axial slices of the cervical spine were obtained without IV contrast. Volumetric acquisition sagittal, coronal, and 3-D reconstructions were performed and reviewed. CT was performed with one or more of the following dose reduction techniques: Automated exposure control, adjustment of the mA and/or kV according to patient size, or use of iterative reconstruction technique. COMPARISON: None. FINDINGS: There is preservation of the vertebral body heights and intervertebral discs. No fractures or dislocations are seen. The alignment of the cervical spine is normal. The craniocervical junction and atlantoaxial joint are within normal limits. The prevertebral soft tissues are within normal limits. The paraspinous soft tissues are within normal limits. There is a 1.5 cm noncalcified masslike pleural-based nodule in the left lung apex. Nonspecific cervical lymph nodes are present. No pathologically enlarged lymph nodes. CT/CT cervical spine wo con IMPRESSION: No fracture or subluxation. No significant degenerative change. There is a 1.5 cm noncalcified masslike pleural-based nodule in the left lung apex. Nonspecific cervical lymph nodes are present. No pathologically enlarged lymph nodes. Impression dictated by: Tray Orourke M.D. 04/22/2025 12:12 PM Dictation Location: [place] [address] Electronically authenticated by: [id number] Y Date: 04/22/2025 12:12
--- NOTE | 2025-04-22 10:16 | CT_ITS ---
The [address] [address] Patient Name: COY SAMUEL MRN: [id number] date: 1985 Sex: F Assigned Patient Location: ER Current Patient Location: Accession/Order Number: [id number] Exam Date: 04/22/2025 12:12 Report Date: 04/22/2025 12:21 At the request of: DIANE PRIEST DO Procedure: CT thoracic spine wo con CT thoracic spine wo con 04/22/2025 11:38 AM SIGNS AND SYMPTOMS: He is to patient head radiating down spine TECHNIQUE: Multi detector CT axial slices of the thoracic spine were obtained without IV contrast. Volumetric acquisition sagittal, coronal, and 3-D reconstructions were performed and reviewed on a separate workstation. CT was performed with one or more of the following dose reduction techniques: Automated exposure control, adjustment of the mA and/or kV according to patient size, or use of iterative reconstruction technique. COMPARISON: 11/09/2023 FINDINGS: There is preservation of the vertebral body heights. There is mild disc height loss at T4-T5, T5-T6, T6-T7, T7-T8, and T8-T9. There is a central disc protrusion at T8-T9 to at least mild spinal canal narrowing. No fractures or dislocations are seen. The alignment of the thoracic spine is normal. The paraspinous soft tissues are within normal limits. There is a 1.7 cm pleural-based soft tissue attenuating nodule within the left lung apex anteriorly. This is unchanged. The visualized lung parenchyma is unremarkable. The visualized upper abdominal viscera is unremarkable. CT/CT thoracic spine wo con IMPRESSION: No fracture or subluxation. There is mild disc height loss at T4-T5, T5-T6, T6-T7, T7-T8, and T8-T9. There is a central disc protrusion at T8-T9 to at least mild spinal canal narrowing. Impression dictated by: Tray Orourke M.D. 04/22/2025 12:21 PM Dictation Location: [place] [address] Electronically authenticated by: [id number] Y Date: 04/22/2025 12:21
[2025-04-22 10:51] LABS: Hematocrit 43.2 % (36.0-48.0); Hemoglobin 14.7 g/dL (12.0-16.0); Immature Granulocytes Abs Auto 0.02 10^3/uL (0.00-0.03); Immature Granulocytes Pct Auto 0.2 % (0.0-0.5); Lymphocytes Absolute Auto 2.7 10^3/uL (1.2-3.8); Mean Corpuscular HGB Conc 34.0 g/dL (29.9-35.2); Mean Corpuscular Hemoglobin 30.9 pg (26.7-34.0); Mean Corpuscular Volume 90.8 fL (81.0-99.0); Platelet Count 371 10^3/uL (150-450); Red Blood Count 4.76 10^6/uL (4.20-5.40); White Blood Count 9.3 10^3/uL (4.0-11.0)
[2025-04-22] MEDS: KETOROLAC TROMETHAMINE 30 MG/ML VIAL 15 MG IVP (10:54)
[2025-04-22] MEDS: DIAZEPAM 10 MG/2 ML SYRINGE 5 MG IV (10:54)
[2025-04-22] MEDS: METHYLPREDNISOLONE SOD SUCC PF 125 MG/2 ML VIAL IVP (10:54)
[2025-04-22 11:13] LABS: Anion Gap 11.9; Blood Urea Nitrogen 10.0 mg/dL (7.0-18.0); Calcium 8.8 mg/dL (8.5-10.1); Carbon Dioxide 22.4 mmol/L (21.0-32.0); Chloride 109 mmol/L (98-107); Estimated GFR (African America >60 (>=60 mL/min/1.73m^2); Estimated GFR (Non-African Ame >60 (>=60 mL/min/1.73m^2); Glucose 102 mg/dL (74-106); Potassium 4.3 mmol/L (3.5-5.1); Sodium 139 mmol/L (136-145)
--- NOTE | 2025-04-22 12:03 | ED.GENADUL1 ---
HPI HPI - General Adult General Chief complaint: Neck Pain/Injury Stated complaint: NECK STIFFNESS Time Seen by Provider: 04/22/25 09:44 Source: patient Mode of arrival: Wheelchair History of Present Illness HPI narrative: Patient was very complex presenting to the emergency department for neck pain. The neck pain radiated to her left side into her left arm and left leg. She is it feels like is a tension headache at first and it starts in the bone of the left side of her head. She states that then it started to migrate last night. She states that she does not have any type of spinal stenosis. 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 She was also stating that she was not moving anything incredibly heavy. She tried Zanaflex 4 mg at home with acetaminophen and ibuprofen without any relief. She denies any loss of bowel or bladder. No urinary retention. There is no deficits that simply pain that limiting her part of the patient. Related Data Home Medications ?Medication ?Instructions ?Recorded ?Confirmed oxcarbazepine 300 mg tablet 600 mg PO .QHS 10/30/24 04/10/25 pantoprazole 20 mg tablet,delayed 20 mg PO .QD 04/10/25 04/10/25 release pregabalin 50 mg capsule 50 mg PO Q12H 04/10/25 04/10/25 oxcarbazepine 150 mg tablet 150 mg PO QDAY 04/22/25 04/22/25 (Trileptal) pregabalin 50 mg capsule (Lyrica) 50 mg PO BID 04/22/25 04/22/25 tizanidine 4 mg capsule (Zanaflex) 4 mg PO Q6H PRN muscle spasticity 04/22/25 04/22/25 Previous Rx's ?Medication ?Instructions ?Recorded hydrocodone 5 mg-acetaminophen 325 1 tab PO Q4H PRN pain #14 tabs 04/22/25 mg tablet prednisone 10 mg tablet See Rx Instructions .Route 04/22/25 .COMPLEX #30 tabs Allergies Allergy/AdvReac Type Severity Reaction Status Date / Time fentanyl Allergy hallucinati Verified 04/22/25 09:46 on Opioid HPI Opioid Management Most Recent Opioid Data: Last Pain Scale 8 Today, 12:18 Last ED Pain Assessment Today, 09:58 Last MAR Pain Assessment Today, 12:18 Review of Systems ROS Status of ROS 10 or more systems reviewed and unremarkable except as noted in history and below PFSH PFS Medical History (Updated 04/22/25 @ 13:06 by Daysi Peterson DO) Multiple sclerosis ?G35 - Multiple sclerosis (ICD-10) History of blood transfusion ?Z92.89 - Personal history of other medical treatment (ICD-10) Anemia ?D64.9 - Anemia, unspecified (ICD-10) Deep vein thrombosis ?I82.409 - Acute embolism and thrombosis of unspecified deep veins of unspecified lower extremity (ICD-10) Insomnia ?G47.00 - Insomnia, unspecified (ICD-10) Panic attacks ?F41.0 - Panic disorder [episodic paroxysmal anxiety] (ICD-10) Anxiety ?F41.9 - Anxiety disorder, unspecified (ICD-10) COVID-19 ?U07.1 - COVID-19 (ICD-10) Sleep apnea ?G47.30 - Sleep apnea, unspecified (ICD-10) Pneumonia ?J18.9 - Pneumonia, unspecified organism (ICD-10) Bronchitis ?J40 - Bronchitis, not specified as acute or chronic (ICD-10) Asthma ?J45.909 - Unspecified asthma, uncomplicated (ICD-10) Seizures ?R56.9 - Unspecified convulsions (ICD-10) Migraine ?G43.909 - Migraine, unspecified, not intractable, without status migrainosus (ICD-10) Kidney stones ?N20.0 - Calculus of kidney (ICD-10) Heartburn ?R12 - Heartburn (ICD-10) GERD (gastroesophageal reflux disease) ?K21.9 - Gastro-esophageal reflux disease without esophagitis (ICD-10) Bradycardia associated with anesthesia Abnormal uterine bleeding ?N93.9 - Abnormal uterine and vaginal bleeding, unspecified (ICD-10) Pelvic pain ?R10.2 - Pelvic and perineal pain (ICD-10) Menorrhagia ?N92.0 - Excessive and frequent menstruation with regular cycle (ICD-10) Dysmenorrhea ?N94.6 - Dysmenorrhea, unspecified (ICD-10) Delayed recovery from anesthesia Surgical History H/O lithotripsy ?Z98.890 - Other specified postprocedural states (ICD-10) History of endometrial ablation ?Z98.890 - Other specified postprocedural states (ICD-10) History of cholecystectomy ?Z90.49 - Acquired absence of other specified parts of digestive tract (ICD-10) History of bilateral salpingectomy ?Z90.79 - Acquired absence of other genital organ(s) (ICD-10) History of section ?Z98.891 - History of uterine scar from previous surgery (ICD-10) History of appendectomy ?Z90.49 - Acquired absence of other specified parts of digestive tract (ICD-10) History of dilation and curettage ?Z98.890 - Other specified postprocedural states (ICD-10) Family History (Updated 02/09/23 @ 12:44 by Sherita Jean NP) Other Family history of COPD (chronic obstructive pulmonary disease) Family history of DVT Family history of breast cancer Family history of heart disease Family history of hypertension Family history of myocardial infarction Family history of ovarian cancer Family history of stroke Family history of uterine cancer Social History Within the past year, how often did you have a drink containing alcohol: monthly or less Smoking status: Current every day smoker Non-prescribed substance use: cannabis (any form) Previous occupational history: [employer] Highest level of school completed/degree received: high school graduate Little interest or pleasure in doing things: not at all Feeling down, depressed, or hopeless: not at all Gender Identity: female Exam Narrative Exam Narrative: Prior to examining the patient, I have washed with hospital approved and provided Antiseptic Hand Tactical Air Defense Controller and have also applied gloves.? Prior to touching the patient, I asked for consent to examine the patient.? General: Alert and oriented, well nourished, mild distress. Eye: PERRL, EOMI, normal conjunctiva. HENT: Normocephalic, normal hearing, moist oral mucosa, no scleral icterus, no sinus tenderness. Neck: Supple, non-tender, no lymphadenopathy. Lungs: Clear to auscultation and percussion, non-labored respiration. No rhonchi, rales, wheezing Heart: Normal rate, regular rhythm, no murmur, gallop or edema. Musculoskeletal: Normal range of motion and strength, midline point tenderness. No obvious swelling or gross deformity. Skin: Skin is warm, dry and pink, no rashes or lesions. Profound tenderness to light touch of the skin without any been denting into the skin itself. Neurologic: Awake, alert, and oriented X3, CN II-XII intact. Psychiatric: Cooperative, appropriate mood and affect.? Following the conclusion of the examination, I have washed my hands thoroughly after removing examination gloves. Constitutional Vital Signs, click to edit/add: Last Vital Signs Temp 97.9 F 04/22/25 09:49 Pulse 70 04/22/25 13:19 Resp 16 04/22/25 13:19 BP 148/91 H 04/22/25 09:49 Pulse Ox 97 04/22/25 13:19 O2 Del Method Room Air 04/22/25 13:19 Course Course Hospital Course: When the patient arrived she received Toradol 30 mg IM, Valium 5 mg IM, and methylprednisolone 125 mg IM Reevaluation(s) Reevaluation #1: I did reassess the patient and the patient states that if she is not moving her pain is an 8-1/2 out of 10. If she moves it exceeds 10. Patient was given an additional hydrocodone 5/325. Time: 12:03 Reevaluation #2: Reassessed the patient and the pain continues to improve. Patient feels like she can go home. She is going to reestablish care with her doctors know that her Medicaid is active. Patient appears nontoxic and in no acute distress. We will give the patient a work note. Time: 13:01 Vital Signs Vital signs: Vital Signs Temperature 97.9 F 04/22/25 09:49 Pulse Rate 81 04/22/25 09:49 Respiratory Rate 16 04/22/25 09:49 Blood Pressure 148/91 H 04/22/25 09:49 Pulse Oximetry 98 04/22/25 09:49 Oxygen Delivery Method Room Air 04/22/25 09:49 Temperature 97.9 F 04/22/25 09:49 Pulse Rate 70 04/22/25 13:19 Respiratory Rate 16 04/22/25 13:19 Blood Pressure 148/91 H 04/22/25 09:49 Pulse Oximetry 97 04/22/25 13:19 Oxygen Delivery Method Room Air 04/22/25 13:19 Medical Decision Making MDM Narrative Medical decision making narrative: Patient has no loss of bowel or bladder. No urinary retention. I did explain to her in great detail as she was very offended when I asked about her IV drug use or if she had any. Patient declines. Patient states that she originally thought we were judging her because of her tattoos. I simply just wanted to know what her risk factor stratification was if she was unable to move and having such profound pain. No risk factors for spinal epidural abscess appreciated. Differential Diagnosis Differential Diagnosis: SCA, spinal stenosis, radicular pain, myalgia, complex regional pain syndro Medical Records Medical records reviewed: Yes I reviewed the patient's medical records Lab Data Lab results reviewed: Yes I reviewed the patient's lab results Labs: Lab Results 04/22/25 Range/Units 10:40 WBC 9.3 (4.0-11.0) 10^3/uL RBC 4.76 (4.20-5.40) 10^6/uL Hgb 14.7 (12.0-16.0) g/dL Hct 43.2 (36.0-48.0) % MCV 90.8 (81.0-99.0) fL MCH 30.9 (26.7-34.0) pg MCHC 34.0 (29.9-35.2) g/dL RDW 12.2 (11.0-15.0) % Plt Count 371 (150-450) 10^3/uL MPV 9.3 L (9.5-13.5) fL Neut % (Auto) 63.1 (43.0-75.0) % Lymph % (Auto) 28.6 (20.5-60.0) % Converse % (Auto) 5.4 (1.7-12.0) % Eos % (Auto) 2.3 (0.9-7.0) % Baso % (Auto) 0.4 (0.2-2.0) % Neut # (Auto) 5.8 (1.4-6.5) 10^3/uL Lymph # (Auto) 2.7 (1.2-3.8) 10^3/uL Converse # (Auto) 0.5 (0.3-0.8) 10^3/uL Eos # (Auto) 0.2 (0.0-0.7) 10^3/uL Baso # (Auto) 0.0 (0.0-0.1) 10^3/uL Abs Immat Gran (auto) 0.02 (0.00-0.03) 10^3/uL Imm/Tot Granulo (auto) 0.2 (0.0-0.5) % Sodium 139 (136-145) mmol/L Potassium 4.3 (3.5-5.1) mmol/L Chloride 109 H (98-107) mmol/L Carbon Dioxide 22.4 (21.0-32.0) mmol/L Anion Gap 11.9 BUN 10.0 (7.0-18.0) mg/dL Creatinine 0.53 L (0.55-1.02) mg/dL Est GFR ( Amer) >60 (>=60 mL/min/1.73m^2) Est GFR (Non-Af Amer) >60 (>=60 mL/min/1.73m^2) BUN/Creatinine Ratio 18.9 Glucose 102 (74-106) mg/dL Calcium 8.8 (8.5-10.1) mg/dL C-Reactive Protein 1.20 H (<=0.50) mg/dL Imaging Data CT scan - head: Attestation: I have reviewed the pertinent imaging results. Radiologist's impression: ITS Impressions Cervical Spine CT 04/22/25 10:16 IMPRESSION: No fracture or subluxation. No significant degenerative change. There is a 1.5 cm noncalcified masslike pleural-based nodule in the left lung apex. Nonspecific cervical lymph nodes are present. No pathologically enlarged lymph nodes. Impression dictated by: Tray Orourke M.D. 04/22/2025 12:12 PM Dictation Location: [employer] Electronically authenticated by: [id number] Y Date: 04/22/2025 12:[address] 04/22/25 10:16 IMPRESSION: No acute intracranial pathology. Impression dictated by: Tray Orourke M.D. 04/22/2025 12:02 PM Dictation Location: [employer] Electronically authenticated by: [id number] Y Date: 04/22/2025 12:[address] 04/22/25 10:16 IMPRESSION: No fracture or subluxation. There is mild disc height loss at T4-T5, T5-T6, T6-T7, T7-T8, and T8-T9. There is a central disc protrusion at T8-T9 to at least mild spinal canal narrowing. Impression dictated by: Tray Orourke M.D. 04/22/2025 12:21 PM Dictation Location: [place] [address] Electronically authenticated by: [id number] Y Date: 04/22/2025 12:21 Discharge Plan Discharge Chief Complaint: Neck Pain/Injury Clinical Impression: Complex regional pain syndrome Patient Disposition: Home, Self-Care Time of Disposition Decision: 13:06 Condition: Good Mode of Transportation: Private Vehicle Prescriptions / Home Meds: New hydrocodone-acetaminophen 5-325 mg tablet 1 tab PO Q4H PRN (Reason: pain) Qty: 14 0RF prednisone 10 mg tablet See Rx Instructions .ROUTE .COMPLEX Qty: 30 0RF Rx Instructions: 4 tabs x 3 days then 3 tabs x 3 days then 2 tabs x 3 days then 1 tab x 3 days. No Action oxcarbazepine 300 mg tablet 600 mg PO .QHS pantoprazole 20 mg tablet,delayed release (DR/EC) 20 mg PO .QD pregabalin 50 mg capsule 50 mg PO Q12H oxcarbazepine [Trileptal] 150 mg tablet 150 mg PO QDAY pregabalin [Lyrica] 50 mg capsule 50 mg PO BID tizanidine [Zanaflex] 4 mg capsule 4 mg PO Q6H PRN (Reason: muscle spasticity) Rx Instructions: do not exceed 3 doses per 24 hrs Print Language: Japanese Instructions: Pain Management (ED), Muscle Spasm (ED) Additional Instructions: Thank you for trusting me with your care. If you develop fever or chills, numbness or weakness in your extremities or any other symptoms not associated with slowly with pain you must return to the emergency department as soon as possible for further evaluation and care. Referrals: Emmie Hill NP [Primary Care Provider] - 1 week Discharge Date/Time: 04/22/25 13:21
[2025-04-22] MEDS: HYDROCODONE/ACET 5-325 MG TABLET 1 TAB PO (12:18)
[2025-04-22 13:19] VITALS: PULSE 70; O2SAT 97
== END 2025-04-22 13:21 | disposition home or self-care (01) ==
PROVIDERS: Emergency Provider Emergency Medicine; PCP Nurse Practitioner
DX: G90.50 Complex regional pain syndrome I, unspecified (principal); Z90.49 Acquired absence of other specified parts of digestive tract; Z90.79 Acquired absence of other genital organ(s); F17.200 Nicotine dependence, unspecified, uncomplicated; R91.1 Solitary pulmonary nodule
CPT/HCPCS: 36415; 70450; 72125; 72128; 80048; 85025; 86140; 96374; 96375; 99285; J1885; J2919; J3360

== ENCOUNTER 2025-06-25 09:21 | Outpatient (OUT) | payer OTHER, SELFPAY ==
--- OUTSIDE RECORDS SUMMARY | 2025-06-25 09:24 | XMS_ITS | Clinical Summary ---
Author Organization [employer] [facility] tem Address [facility] [id number] [address] [place] [address] Care Team Providers Care Extrusion Utility Worker Name Role Phone Services, [facility] Primary Care Provider Allergies No known active allergies Medications MedicationSigDispense QuantityRefillsLast FilledStart DateEnd DateStatus topiramate (TOPAMAX) 100 mg tablet Take 150 mg by mouth 2 (two) times a day.Active risperiDONE (RisperDAL) 2 mg tablet Take 2 mg by mouth daily.Active traZODone (DESYREL) 100 mg tablet Take 100 mg by mouth nightly.Active Social History Tobacco UseTypesPacks/DayYears UsedDateSmoking Tobacco: Every DaySmokeless Tobacco: NeverChildcareAnswerDate ZiouqhmoPjsxfvyjdRfbmssx96/06/2020Employment AnswerDate JnegmhkmWhnjshxlsrIwihcvm09/06/2020Purpose - LifeAnswerDate Recorded Purpose and direction in cbbaSaokkkz05/11/2021CommentsUnknownSex and Gender InformationValueDate RecordedSex Assigned at BirthNot on fileLegal Sex Mpqomb2201/09/2020 9:10 AM EDTGender IdentityNot on fileSexual OrientationNot on file Last Filed Vital Signs Vital SignReadingTime TakenCommentsBlood Aqipfwig067/8801/09/2020 9:17 AM EDT Sggfi250801/09/2020 9:17 AM OYKJrjrjdoeoym20.7 ??C (98.1 ??F)01/09/2020 9:17 AM EDTRespiratory Vaob248601/09/2020 9:17 AM EDTOxygen Okmncciijl195%01/09/2020 9:17 AM EDTInhaled Oxygen Concentration--Ydvxvg805.1 kg (225 lb)02/25/2021 3:07 PM XTGQiefph206.6 cm (5' 4 )02/25/2021 3:07 PM EDTBody Mass Index38.62002/25/2021 3:07 PM EDT Plan of Treatment Health MaintenanceDue DateLast DoneCommentsDepression Vjlntymkc29/11/1997Tobacco Cbihnimou32/11/1997Adult BMI Aaejwumxc06/11/2003DTaP,Tdap and Td Vaccines (1 - Tdap)2003Pap Smear2005Influenza Cqkcshc5405/06/2025 Medical Devices Not on file Insurance Care Teams Team MemberRelationshipSpecialtyStart DateEnd Services, [facility] [address] [place], [place] PCP - GeneralFamily Zvjvqrxe92/12/20
--- OUTSIDE RECORDS SUMMARY | 2025-06-25 09:25 | XMS_ITS | Clinical Summary ---
Author Organization [facility] Address [address], [address] [place] [address] Care Team Providers Care Sales And Customer Relations Rep Name Role Phone Unavailable Primary Care Provider Unavailabl e Allergies No known active allergies Medications MedicationSigDispense QuantityRefillsLast FilledStart DateEnd DateStatus topiramate (TOPAMAX) 100 MG tablet Take 150 mg by mouth 2 times dailyActive zolpidem (AMBIEN) 10 MG tablet Take 5 mg by mouth nightly as needed for Sleep.Active Social History Tobacco UseTypesPacks/DayYears UsedDateSmoking Tobacco: Every DayCigarettes Smokeless Tobacco: NeverAlcohol UseStandard Drinks/WeekCommentsNot Currently0 (1 standard drink = 0.6 oz pure alcohol)CommentsNoSex and Gender InformationValueDate RecordedSex Assigned at BirthNot on fileLegal SexFemale 03/01/2020 8:45 AM EDTGender IdentityNot on fileSexual OrientationNot on file Last Filed Vital Signs Vital SignReadingTime TakenCommentsBlood Tgkhdnqa71/57003/01/2020 12:15 PM EDT Kdcuh5101 12:15 PM FNYEqdgvhypxjs18.6 ??C (97.9 ??F)03/01/2020 9:00 AM EDTRespiratory Tcgb4500 12:15 PM EDTOxygen Crnhkhkxaa005%03/01/2020 12:15 PM EDTInhaled Oxygen Concentration--Atdczs64.9 kg (185 lb)03/01/2020 9:00 AM VDTOyxtkm038.6 cm (5' 4 )03/01/2020 9:00 AM EDTBody Mass Index31.76003/01/2020 9:00 AM EDT Plan of Treatment Not on file Insurance [address] [place] [address]
--- OUTSIDE RECORDS SUMMARY | 2025-06-25 09:25 | XMS_ITS | Clinical Summary ---
Author Organization [facility] Address [address] [place] [id number] Care Team Providers Care Bullet Casting Operator Name Role Phone Sherita Rodriguez PA-C Unavailable [phone] Encounters DateTypeDepartmentCare BzrtNtodptfwvxv41/20/2025Transcribe Orders Referring Physician [address] [place] [phone] Sherita Rodriguez PA-C Ataxia (Primary Dx)from Last 3 Months Social History Tobacco UseTypesPacks/DayYears UsedDateSmoking Tobacco: Never AssessedArea Deprivation IndexAnswerDate RecordedNational Score (1-100), lower number is lower griv778508/30/2024State Score (1-10), lower number is lower gqwa23610/31/2023 Data from: https://www.neighborhoodatlas.medicine.[facility].edu/. Last address used for p[address]CommentsUnknownSex and Gender InformationValueDate RecordedSex Assigned at BirthNot on fileLegal SexFemale 03/07/2024 3:02 PM EDTGender IdentityNot on fileSexual OrientationNot on file Plan of Treatment Health MaintenanceDue DateLast DoneCommentsAnxiety Bsqfrnzis39/11/2003Depression Joicwinpx83/11/2003HIV Wpkhgnthf83/11/2003Hepatitis C Aeqcphnsd98/11/2003 DTaP,Tdap,Td Vaccine (1 - Tdap)2003Hepatitis B Vaccine (1 of 3 - 19+ 3- dose series)2003Cervical Cancer Atfmkhvzc01/11/2006HPV Vaccine (1 - 3-dose SCDM series)2011Mammogram Lfrzequow40/11/2025Covid-19 Vaccine ( - 2024- season)2025Influenza Vaccine (#1)2025 Insurance Care Teams Team MemberRelationshipSpecialtyStart DateEnd Sherita Rodriguez PA-C [address] [place] [id number] PtikdlbxzJdojofema25/20/25
--- OUTSIDE RECORDS SUMMARY | 2025-06-25 09:25 | XMS_ITS | CCD ---
Author Organization [facility] Care Team Providers Care Parquet Floor Layer Name Role Phone PRINCESS BUCHANAN Attending Unavailable Unavailable Primary Care Provider UnavailMukund Silveira Unavailable Radha Arciniega Unavailable Christopher Mendoza Unavailable MD Mukund Rodriguez Attending Provider NON STAFF Primary Care Provider UnavailMD Christopher Jacobson Attending Provider Jimmie Crawford DDS Attending Unavailable [facility] Unava ilable NEY, DR MARYURI Parker Admitting Unavailabl e REINSETH, DR MARYURI Parker Consulting Unavailabl e NEY, DR MARYURI Parker Attending Unavailabl e [facility] Unava ilable MICHAELA Blanco, KRISHNA Attending Unavailable MICHAELA Blanco, KRISHNA Admitting Unavailable PERCY ELIZABETH Consulting Unavailabl e MICHAELA ., KRISHNA Consulting Unavailable [facility] Unava ilable LOW ESCALANTE Attending Unavailable BORIS, LOW Consulting Unavailable BORIS, LOW Admitting Unavailable [facility] Unava ilable LOW ESCALANTE Attending Unavailable BORIS, LOW Consulting Unavailable BORIS, LOW Admitting Unavailable [facility] Unava ilable AYLIN ., DR EVERETT Admitting Unavailable AYLIN ., DR EVERETT Attending Unavailable AYLIN ., DR EVERETT Consulting Unavailable [facility] Consulting Unava ilable [facility] Unava ilable AYLIN ., DR EVERETT Admitting Unavailable AYLIN ., DR EVERETT Attending Unavailable [facility] Unava ilable HAY ., DR FRIED Consulting Unavailable BORIS, LOW Admitting Unavailable LOW ESCALANTE Attending Unavailable [facility] Unava ilable DIAB ., RENA Attending Unavailable JUDY CONKLIN Consulting Unavailable DIAB ., RENA Admitting Unavailable DIAB ., RENA Consulting Unavailable [facility] Unava ilable GUILLE, DR RANJAN Joyce Admitting Unavailable GUILLE, DR RANJAN Joyce Attending Unavailable GUILLE, DR RANJAN Joyce Consulting Unavailable MARIAM SANCHEZ Consulting Unavailable [facility] Unava ilable AYLIN ., DR EVERETT Attending Unavailable AYLIN ., DR EVERETT Admitting Unavailable [facility] Unava ilable AYLIN ., DR EVERETT Admitting Unavailable AYLIN ., DR EVERETT Attending Unavailable AYLIN ., DR EVERETT Consulting Unavailable AGUBOSIM, AMOS Consulting Unavailable DORKOSKIE, TRACEY Consulting Unavailable [facility] Consulting Unava ilable GLENN JIN Attending Unavailable [facility] Unava ilable GLENN JIN Admitting Unavailable JOVANY, GIULIANO Consulting Unavailable GLENN JIN Consulting Unavailable BRYSONMUKUND PERKINS Consulting Unavailable POLICARO, ESTHER Consulting Unavailable [facility] Unava ilable NADEREIsiah, DR DARIEN Silvestre Consulting Unavailable NADERER, DR DARIEN Silvestre Attending Unavailable NADERER, DR DARIEN Silvestre Admitting Unavailable HAY ., DR FRIED Consulting Unavailable KARLEEPRINCESS KOLB Consulting Unavailable .MEGAN DUGAN Consulting Unavailable OLEXAMUKUND Attending Unavailable OLEXA, MUKUND Admitting Unavailable [facility] Unava ilable [facility] Unava ilable NEY, DR MARYURI Parker Attending Unavailabl e NEY, DR MARYURI Parker Admitting Unavailabl ashley BREWSTER, DR MARYURI Parker Consulting Unavailabl ashley LIRIANO, DR LOUIE Joyce Consulting Unavailable [facility] Unava ilable NEY, DR MARYURI Parker Attending Unavailabl ashley BREWSTER, DR MARYURI Parker Admitting Unavailabl ashley BREWSTER, DR MARYURI Parker Consulting Unavailjuan m LYLE, DR SREE Peña Consulting Unavailable [facility] Unava ilable LWO ESCALANTE Attending Unavailable NICOL ., PERCY BROWN Consulting UnavailLOW De Santiago Admitting Unavailable SREE MCCLENDON Consulting Unavailable PATRICIA Piper Attending Provider OMKAR [place] Primary Care Provider Judy SCHULTZ Primary Care Physician [phone] Charles Marrero DO Unavailable Saloni Barton Unavailable Louie Chavez MD Unavailable [phone] Unavailable Primary Care Provider Unavailabl PATRICIA Pathak Referring Unavailable PATRICIA PIPER Attending Unavailable PATRICIA PIPER Admitting Unavailable [facility] Primary Care Provider Sherita Rodriguez PA-C Attending Provider Sherita Rodriguez PA-C Referring Provider Sherita Abernathy Unavailable Santo Ryan MD Primary Care Provider [phone] SALONI PIPER Attending Unavailable SALONI PIPER Attending Unavailable LOUIE CHAVEZ Attending Unavailable SALONI PIPER Attending Unavailable SHERITA RODRIGUEZ Attending Unavailable SHERITA RODRIGUEZ Attending [facility]available [place] [facility] Sherita Calle APRN Attending Provider Emerita Dumont DO Attending Provider [facility] Unavailable Lowe, Sherita Admitting Unavailable Jennifer, Sherita Attending Unavailable Jennifer, Sherita Referring Unavailable Sherita Calle Attending Unavailable [facility] Unavailable Sherita Calle Admitting Unavailable Radha Loja DNP Attending Provider Santo Ryan MD Primary Care Provider [phone] Allergies Allergy ClassificationReported Allergen(s)Allergy TypeDate of OnsetReaction(s) Facility (15 sources)[facility]LD[facility] [id number] [facility] (1 source)[facility]LD[facility] AllergyThe [facility] (1 source)fenta[place]LDrug [id number] Medications Current Medications MedicationDrug Class(es)DatesSig (Normalized)Sig (Original)Acetaminophen / oxyCODONE (2 sources)Opioid AgonistPercocet Activeacetylcholine 10% solution - [facility] (1 source)Start: 07-31-2024 End: 51-17-9164mmnwqhgxuvhep 10% solution - cchs compoundingamitriptyline hydrochloride 25 mg oral tablet (1 source)Tricyclic AntidepressantStart: 56-52-1724nkbd 1 tablet by mouth once daily at bedtimeAmitriptyline 25 mg tablet Active 25 MG PO Daily at bedtime May 28, 2025 12:00am Complies with drug therapyamoxicillin 500 mg oral capsule (1 source)Penicillin-class AntibacterialStart: 68-69-4076ylbc 1 capsule by mouth three times dailyAmoxicillin 500 mg capsule Active 500 MG PO Three times daily May 28, 2025 12:00am 05/28/25 - 2 days left Complies with drug therapy Atogepant (Qulipta) 60 MG tablet (13 sources)Start: 55-27-9443qdkm 1 tablet by mouth once dailyAtogepant (Qulipta) 60 MG tablet Indications: Migraine without aura and without status migrainosus,not intractable (CMS/HCC) Take 60 mg by mouth Daily 30 tablet 2 10/31/2024 ActiveStart: 04-10-2024 End: 50-70-0365cnbv 1 tablet by mouth once dailyAtogepant (Qulipta) 60 MG tablet Indications: Migraine without aura and without status migrainosus,not intractable (CMS/HCC) Take 60 mg by mouth Daily 30 tablet 2 04/10/2024 10/31/2024 Discontinued (Reorder)Start: 49-21-4172kjxx 1 tablet by mouth once dailyAtogepant (Qulipta) 60 MG tablet Indications: Migraine without aura and without status migrainosus,not intractable (CMS/HCC) Take 60 mg by mouth Daily 30 tablet 2 04/10/2024 Activeazithromycin 250 mg oral tablet (1 source)Macrolide AntimicrobialStart: 03-01-2020 End: 64-53-3829iofqodjcufka (ZITHROMAX) 250 MG tablet Indications: Bronchitis Take 2 tablets (500 mg) on Day 1, followed by 1 tablet (250 mg) once daily on Days 2 through 5. 1 packet 0 03/01/2020 03/11/2020 Btenqj70 actuat budesonide 0.16 mg/actuat / formoterol fumarate 0.0045 mg/actuat metered dose inhaler (11 sources)Corticosteroid, beta2-Adrenergic AgonistStart: 28-32-8037lwxf 2 puff(s) by inhalation once dailySymbicort 160-4.5 MCG/ACT inhaler Inhale 2 puffs Daily 11/01/2023 Activecyclobenzaprine hydrochloride 5 mg oral tablet (4 sources)Muscle Relaxanttake 1 tablet by mouth every twenty-four hours Cyclobenzaprine HCl 5 MG 1 tablet at bedtime as needed Orally Once a day Active diazePAM 2 mg oral tablet (11 sources)BenzodiazepineStart: 63-67-7112tdhrpGLA (Valium) 2 MG tablet Indications: Claustrophobia (CMS/HCC) Take 30 minutes prior to MRI. Do not drive when taking this medication. 1 tablet 01/09/2024 Activeetodolac 400 mg oral tablet (1 source)Nonsteroidal Anti-inflammatory DrugStart: 54-37-1379oulr 1 tablet by mouth twice daily as neededEtodolac 400 mg tablet Active 400 MG PO Twice daily as needed May 28, 2025 12:00am Complieswith drug therapyfamotidine 20 mg oral tablet (11 sources)Histamine-2 Receptor Antagonisttake 1 tablet by mouth every twenty- four hours as needed for gastroesophageal reflux diseasefamotidine (Pepcid) 20 MG tablet Take 20 mg by mouth Daily as needed for heartburn 1 tablet Active naproxen 250 mg oral tablet (4 sources)Nonsteroidal Anti-inflammatory Drugtake 1 tablet by mouth every twelve hoursNaproxen 250 MG 1 tablet with food or milk Orally Twice a day Active naratriptan 1 mg oral tablet (3 sources)Serotonin-1b and Serotonin-1d Receptor AgonistStart: 85-58-5900eydg 1 tablet by mouth every four hoursNaratriptan 1 mg tablet Active 0 PO .COMPLEX April 15, 2025 12:00am take 1 tablet at onset of headache; if no relief, may repeat 1 tablet after at least 4 hrs PO Complies with drug therapyomeprazole 40 mg delayed release oral capsule (1 source)Proton Pump InhibitorStart: 51-82-8386yuty 1 capsule by mouth once as neededOmeprazole 40 mg capsule,delayed release(DR/EC) Active 40 MG PO Once as needed May 282:00am Complies with drug therapyondansetron 4 mg oral tablet (11 sources)Serotonin-3 Receptor Antagonisttake 1 tablet by mouth once daily ondansetron (Zofran) 4 MG tablet Take 4 mg by mouth Daily 1 tablet Active OXcarbazepine 300 mg oral tablet (20 sources)Anti-epileptic AgentStart: 11-30-0347bceu 2 tablets by mouth once dailyOxcarbazepine 300 mg tablet Active 600 MG PO Daily April 15, 2025 4:21pm Complies with drug therapyStart: 11-19-2024 End: 08-39-6094bvuf 2 tablets by mouth at bedtimeOXcarbazepine (Trileptal) 300 MG tablet Indications: Migraine without aura and without status migrainosus, not intractable (CMS/HCC) , Paresthesia TAKE 2 TABLETS (600 MG) BY MOUTH AT BEDTIME 180 tablet 1 01/16/2025 ActiveStart: 42-47-8518glkx 0.5 tablet by mouth once daily in the morning, then take 2 tablets by mouth at bedtimeOXcarbazepine (Trileptal) 300 MG tablet Indications: Migraine without aura and without status migrainosus, not intractable (CMS/HCC) , Paresthesia Take 1/2 -1 tab PO QAM and 2 tabs (600mg) PO at bedtime 90 tablet 2 07/25/2024 ActiveStart: 07-23-2024 End: 54-62-8580kptz 2 tablets by mouth at bedtimeOXcarbazepine (Trileptal) 300 MG tablet Indications: Migraine without aura and without status migrainosus, not intractable (CMS/HCC) , Paresthesia Take 2 tablets (600 mg) by mouth at bedtime 60 tablet 2 07/23/2024 07/25/2024 Discontinued (Reorder)Start: 68-02-4092segu 2 tablets by mouth at bedtimeOXcarbazepine (Trileptal) 300 MG tablet Indications: Migraine without aura and without status migrainosus, not intractable (CMS/HCC) , Paresthesia Take 2 tablets (600 mg) by mouth at bedtime 60 tablet 2 04/10/2024 ActiveStart: 02-22-2024 End: 45-85-3122qihd 1 tablet by mouth once dailyOxcarbazepine 300 mg tablet Discontinued 300 MG PO Daily February 22, 2024 12:00am April 15, 2025 4:22pm pantoprazole 20 mg delayed release oral tablet (5 sources)Proton Pump InhibitorStart: 04-15-2025 End: 18-95-1169omhe 1 mg by mouth once dailyPantoprazole 20 mg tablet,delayed release (DR/EC) Active MG PO Daily May 28, 2025 9:56am Complies with drug therapypredniSONE 10 mg oral tablet (4 sources)Start: 05-09-2025 End: 16-07-7221Fksygxcouf 10 mg tablet Active 10 MG PO .COMPLEX as needed May 28, 2025 9:57am 10 mg orallytaper; PRN; Complies with drug therapy Start: 03-01-2020 End: 16-14-3752hzdv 4 tablets by mouth once dailypredniSONE (DELTASONE) 10 MG tablet Take 4 tablets by mouth once daily for 5 days 20 tablet 0 03/01/2020 03/11/2020 Activepregabalin 50 mg oral capsule (14 sources)Start: 04-15-2025 End: 69-52-9213fryh 1 capsule by mouth twice dailyPregabalin 50 mg capsule Active 50 MG PO Twice daily 60 30 May 07, 2025 6:41pm Complies withdrug therapyStart: 10-31-2024 End: 68-24-6238ecim 1 capsule by mouth in the morningpregabalin (Lyrica) 50 MG capsule Indications: Neuropathic pain Take 1 capsule (50 mg) by mouth in the morning and 1 capsule (50 mg) before bedtime. Due 01/30/25. 60 capsule 2 01/16/2025 02/15/2025 ActiveRisperidone (1 source)Atypical AntipsychoticStart: 71-26-1007Olhcmizmucr (Uzedy) 150 mg/0.42 mL suspension,extended rel syring Active MG SUBCUT May 28, 2025 12:00am Complies with drug therapyrizatriptan 10 mg oral tablet (11 sources)Serotonin-1b and Serotonin-1d Receptor AgonistStart: 03-14-2024 rizatriptan (Maxalt) 10 MG tablet Indications: Migraine without aura and without status migrainosus, not intractable (CMS/HCC) Take 1 tablet (10 mg) by mouth 1 (one) time if needed for migraine (may repeat x1) May repeat in 2 hours if unresolved. Do not exceed 30 mg in 24 hours. 9 tablet 2 03/14/2024 Active tiZANidine 4 mg oral tablet (3 sources)Central alpha-2 Adrenergic AgonistStart: 70-80-1520vzbk 1 tablet by mouth once daily at bedtimeTizanidine (Zanaflex) 4 mg tablet Active 4 MG PO Daily at bedtime April 15, 2025 12:00am Take1/2-1 tab at bedtime Complies with drug therapytopiramate 50 mg oral tablet (2 sources)Start: 21-19-2367hezw 1 tablet by mouth twice dailyTopiramate 50 mg tablet Active 50 MG PO Twice daily May 28, 2025 12:00am Complies with drugtherapytopiramate (TOPAMAX) 100 MG tablet Take 150 mg by mouth 2 times daily 0 ActivetraMADol hydrochloride 50 mg oral tablet (2 sources)Opioid Agonisttake 1 tablet by mouth every twenty-four hourstraMADol HCl 50 MG 1 tablet as needed Orally Once a day ActivetraZODone hydrochloride 50 mg oral tablet (19 sources)Serotonin Reuptake InhibitorStart: 26-17-6842zyac 1 tablet by mouth once dailyTrazodone 50 mg tablet Active 50 MG PO Daily May 28, 2025 12:00am as directed Complies withdrug therapyStart: 02-22-2024 End: 90-07-9062vqok 1 tablet by mouth once daily at bedtime as neededTrazodone 100 mg tablet Discontinued 100 MG PO Daily at bedtime as needed February 22, 2024 12:00am April 15, 2025 4:22pmzolpidem tartrate 10 mg oral tablet (1 source)gamma-Aminobutyric Acid-ergic Agonisttake 5 mg by mouth once daily as needed for sleepzolpidem (AMBIEN) 10 MG tablet Take 5 mg by mouth nightly as needed for Sleep. 0 Active Completed/Discontinued Medications MedicationDrug Class(es)DatesSig (Normalized)Sig (Original)acetaminophen 500 mg oral tablet (1 source)Start: 03-01-2020 End: 34-17-9892lwuthrpcrptjl (TYLENOL) tablet 1,000 mgacetaminophen 325 mg / HYDROcodone bitartrate 5 mg oral tablet (2 sources)Opioid AgonistStart: 05-09-2025 End: 12-29-8309avwu 1 tablet by mouth every six hours as neededHydrocodone- Acetaminophen 5-325 mg tablet Discontinued 1 TAB PO Every 6 hours as needed May 09, 2025 12:00am May 28, 2025 9:62tsnku932037 200 actuat albuterol 0.09 mg/actuat metered dose inhaler (20 sources)beta2-Adrenergic AgonistStart: 02-22-2024 End: 09-17-3172jywm 1 puff(s) by inhalation every four to six hours as needed Albuterol Sulfate 90 mcg/actuation HFA aerosol inhaler Discontinued 2 PUFF INHALATION EVERY 4-6 HOURS as needed February 22, 2024 12:00am April 15, 2025 4:21pmalbuterol (2.5 MG/3ML) 0.083% nebulizer solution Take 3 mL by nebulization every 6 (six) hours if needed for wheezing Activetake 1 puff(s) by inhalation every four hours for wheezingalbuterol HFA 90 mcg/act inhaler Inhale 1 puff every 4 (four) hours if needed for wheezing Activecariprazine 1.5 mg oral capsule (18 sources)Atypical AntipsychoticStart: 12-20-2023 End: 92-61-9555gixy 1 capsule by mouth once dailyCariprazine (Vraylar) 1.5 mg capsule Discontinued 1.5 MG PO Daily February 22, 2024 12:00am April 15, 2025 4:21pmhydrOXYzine pamoate 50 mg oral capsule (18 sources)AntihistamineStart: 02-22-2024 End: 35-45-2705kffs 1 capsule by mouth twice daily as neededHydroxyzine Pamoate 50 mg capsule Discontinued 50 MG PO Twice daily as needed February 22, 2024 12:00a m April 15, 2025 4:21pmlamoTRIgine 25 mg oral tablet (18 sources)Mood Stabilizer, Anti-epileptic AgentStart: 02-22-2024 End: 46-37-9491czug 2 tablets by mouth once dailyLamotrigine 25 mg tablet Discontinued 50 MG PO Daily February 22, 2024 12:00am April 15, 2025 4:21pm Start: 85-60-7766yvhr 50 mg by mouth once dailyLamotrigine Active 50 MG PO Daily February 22, 2024 12:00amStart: 12-23-2023 End: 76-33-3936hoio 1 tablet by mouth in the morninglamoTRIgine (LaMICtal) 25 MG tablet Take 25 mg by mouth in the morning and 25 mg before bedtime. 12/23/2023 01/16/2025 Discontinuedmagnesium oxide 400 mg oral tablet (13 sources)Start: 04-15-2025 End: 23-45-8932cpdf 1 tablet by mouth once dailyMagnesium Oxide 400 mg (241.3 mg magnesium) tablet Discontinued 400 MG PO Daily April 15, 2025 12:00am May 28, 2025 9:55amStart: 07-60-9163snib 1 tablet by mouth once daily at bedtimemagnesium oxide (Mag-Ox) 400 (240 Mg) MG tablet Indications: Migraine without aura and without status migrainosus, not intractable (CMS/HCC) TAKE 1 TABLET BY MOUTH EVERY DAY AT BEDTIME 90 tablet 1 08/30/2024 ActiveStart: 47-38-6502kpde 1 tablet by mouth at bedtimemagnesium oxide (Mag-Ox) 400 mg tablet Indications: Migraine without aura and without status migrainosus, not intractable (CMS/HCC) Take 1 tablet (400 mg) by mouth at bedtime 30 tablet 2 07/25/2024 Atukrx43 hr metFORMIN hydrochloride 500 mg extended release oral tablet (12 sources)BiguanideStart: 02-22-2024 End: 48-08-4861bjod 1 tablet by mouth once dailyMetformin 500 mg tablet extended release 24 hr Discontinued 500 MG PO Daily March 21, 2024 11:38am April 15, 2025 4:21pmSUMAtriptan 50 mg oral tablet (7 sources)Serotonin-1b and Serotonin-1d Receptor AgonistStart: 02-22-2024 End: 60-10-5293zatj 1 mg by mouth once as neededSumatriptan Succinate 50 mg tablet Discontinued MG PO Once as needed February 22, 2024 12:00am 2024 4:22pmStart: 60-70-5678csoq 1 mg by mouth onceSumatriptan Succinate Active MG PO Once February 22, 2024 12:00amtriamcinolone acetonide 40 mg/ml injectable suspension (3 sources)CorticosteroidStart: 15-41-1079Izsfasl-40 Apr, 40 mg divalproex sodium 250 mg delayed release oral tablet (5 sources)Mood Stabilizer, Anti-epileptic AgentStart: 05-07-2025 End: 41-69-2555sjvh 1 tablet by mouth twice dailyDivalproex (Depakote) 250 mg tablet,delayed release (DR/EC) Discontinued 250 MG PO Twice daily 60 30 May 07, 2025 12:00am May 09, 2025 2:17pmStart: 01-16-2025 End: 19-36-8439ciqf 1 tablet by mouth in the morningdivalproex (Depakote) 250 MG EC tablet Indications: Migraine without aura and without status migrainosus, not intractable (CMS/HCC) Take 1 tablet (250 mg) by mouth in the morning and 1 tablet (250 mg) before bedtime. Do not crush, chew, or split. 60 tablet 2 01/16/2025 02/15/2025 Activevarenicline 0.5 mg oral tablet (7 sources)Partial Cholinergic Nicotinic AgonistStart: 02-22-2024 End: 98-13-6324vhft 1 tablet by mouth twice dailyVarenicline Tartrate 0.5 mg tablet Discontinued 0.5 MG PO Twice daily February 22, 2024 12:00am April 15, 2025 4:22pmvortioxetine 10 mg oral tablet (18 sources)Start: 02-22-2024 End: 94-51-5239ocfy 1 tablet by mouth once dailyVortioxetine (Trintellix) 10 mg tablet Discontinued 10 MG PO Daily February 22, 2024 12:00am April 15, 2025 4:22pmStart: 74-99-1819bdbv 1 tablet by mouth in the morningTrintellix 5 MG tablet Take 1 tablet by mouth in the morning. 12/21/2023 Active Problems Active Problems Problem ClassificationProblemDateDocumented DateEpisodic/Chronic Administrative/social admission (12 sources)Patient encounter status; Translations: [Dietary counseling and surveillance]21-27-6612GxllavfnVnrtfio disorders (8 sources)Anxiety; Translations: [Anxiety disorder, unspecified]02-22-2024 ChronicAsthma (9 sources)Unspecified asthma, uncomplicated; Translations: [Asthma]Onset: 734476-71-8344DwwhqoqWascxkwjv and vision defects (8 sources)Eye / vision finding; Translations: [Unspecified visual disturbance] 46-31-9412BgvemwctZgelgjip of urinary tract (2 sources)History of calculus of kidney; Translations: [Personal history of urinary calculi]29-37-3956EptjtdwdEdutwxa obstructive pulmonary disease and bronchiectasis (1 source)Mucopurulent chronic bronchitis; Translations: [MUCOPURULENT CHRONIC BRONCHITIS]Onset: 26-23-5512OyetzbhXxlxbily mellitus without complication (4 sources)Increased glucose level; Translations: [Other abnormal glucose] 56-11-2465MdogsrnxLdegzvdusi disorders (2 sources)Gastroesophageal reflux disease; Translations: [Gastro-esophageal reflux disease without esophagitis]15-91-1933WjulzxpUoisb and electrolyte disorders (1 source)Volume depletion, unspecified; Translations: [VOLUME DEPLETION UNSPECIFIED]Onset: 35-38-0328AnorrxocJnkmxeziobmly symptoms and ill-defined conditions (1 source)Unspecified urinary incontinence; Translations: [UNSPECIFIED URINARY INCONTINENCE]Onset: 44-64-9261WbykvhrNutufsba; including migraine (20 sources)Migraine; Translations: [Migraine, unspecified, not intractable, without status migrainosus]Onset: 051337-23-0487ShgbvdqItghoeoepypoz and screening for infectious disease (1 source)Contact with and (suspected) exposure to other communicable diseases; Translations: [CONTACT W EXPSOTH COMMUNICABLE DZ]Onset: 71-84-5334Kajxzpdx Intestinal infection (1 source)Viral intestinal infection, unspecified; Translations: [VIRAL INTESTINAL INFECTION UNSPEC]Onset: 77-31-6069TxndcrysHrvbxdw and fatigue (3 sources)Weakness; Translations: [WEAKNESS]Onset: 01-83-5098GtemusrqZydceodji disorders (4 sources)Excessive and frequent menstruation with regular cycle; Translations: [EXCESS FREQ MENSTRUATION W/REG CYCL]Onset: 62-69-6231SgpwveuIcev disorders (16 sources)Bipolar disorder; Translations: [Bipolar disorder, unspecified] 01-31-2061NjyarzlMgabwt and vomiting (3 sources)Nausea with vomiting, unspecified; Translations: [NAUSEA WITH VOMITING UNSPECIFIED]Onset: 54-74-5739SkgrbeuwXtuuc aftercare (1 source)Other terminal carman (current) drug therapy; Translations: [OTH INTERMEDIATE CURRENT DRUG THERAPY]Onset: 85-68-9946XjyarvlsMixbr connective tissue disease (12 sources)Cramp; Translations: [Cramp and spasm]80-97-2215CjyxuyiiNnhdx connective tissue disease (14 sources)Neuropathic pain; Translations: [Neuralgia and neuritis, unspecified]43-96-2263IrlsdeajEpdfj connective tissue disease (2 sources)Fibromyalgia; Translations: [Fibromyalgia]57-61-4547TpyqzzvzBmwem disorders of stomach and duodenum (4 sources)Indigestion; Translations: [Functional dyspepsia]EpisodicOther endocrine disorders (8 sources)Polycystic ovary syndrome; Translations: [Polycystic ovarian syndrome]60-08-7245UyrkstwQfjxf endocrine disorders (2 sources)Polycystic ovarian syndrome; Translations: [Polycystic ovaries] 24-12-3033LbfjdjhBivnr female genital disorders (1 source)Other specified abnormal uterine and vaginal bleeding; Translations: [OTH SPEC ABNORMAL UTERINE VAGBLEED]Onset: 11-76-9728GemqfgjOqwbv female genital disorders (1 source)Unspecified dyspareunia; Translations: [UNSPECIFIED DYSPAREUNIA]Onset: 67-68-5064ZdlwsfwMrvik gastrointestinal disorders (2 sources)History of pancreatitis; Translations: [Personal history of other diseases of the digestive system]31-07-2474JgzliyeuBeoiv nervous system disorders (1 source)Other chronic pain; Translations: [OTHER CHRONIC PAIN]Onset: 37-29-8833ScagnteTffgd nervous system disorders (20 sources)Paresthesia; Translations: [Paresthesia of skin]Onset: 12-29-2023 79-16-5511GwamrzrcOdvjd nervous system disorders (4 sources)Hyperreflexia; Translations: [Abnormal reflex]89-34-1376WzjbqorvKismd nervous system disorders (4 sources)Impaired cognition; Translations: [Other symptoms and signs involving cognitive functions and awareness]52-19-8652JdplozqpDioxg nervous system disorders (2 sources)Abnormal gait; Translations: [Unsteadiness on feet]89-46-5753Pwsncspj Other nervous system disorders (1 source)Paresthesia of skin; Translations: [Paresthesia of skin]Onset: 56-76-1473BinrjlehVclle nutritional; endocrine; and metabolic disorders (8 sources)Obese class II; Translations: [Obesity, unspecified]14-30-5753Ixdlfpv Other nutritional; endocrine; and metabolic disorders (2 sources)Obesity, unspecified; Translations: [Obesity, unspecified]02-22-2024 ChronicOther nutritional; endocrine; and metabolic disorders (2 sources)Body mass index 30+ - obesity; Translations: [Body mass index (BMI) 35.0-35.9, adult]35-00-7996GqjrekpJqwpx nutritional; endocrine; and metabolic disorders (2 sources)Abnormal weight gain; Translations: [Abnormal weight gain]05-28-2025 EpisodicOther screening for suspected conditions (not mental disorders or infectious disease) (9 sources)MRI of head abnormal; Translations: [Abnormal findings on diagnostic imaging of skull and head, notelsewhere classified]Onset: [id number] EpisodicOther upper respiratory infections (6 sources)Acute upper respiratory infection, unspecified; Translations: [Acute laryngitis]Onset: 39-00-0360VwtnmnpuWyifhifrvqk disorders (8 sources)Personality disorder; Translations: [Personality disorder, unspecified]78-41-9245JgqswswZtvehejx codes; unclassified (2 sources)Insomnia; Translations: [Insomnia, unspecified]99-60-2510Puatwtgf Screening and history of mental health and substance abuse codes (1 source)Personal history of nicotine dependence; Translations: [PERSONAL HISTORY OF NICOTINE DEPEND]Onset: 50-24-1780CklnlzdfBhdhfcibrnm; intervertebral disc disorders; other back problems (2 sources)Neck pain; Translations: [Cervicalgia]32-31-7750YeyeismbSvhzswhxd- related disorders (1 source)Nicotine dependence, cigarettes, uncomplicated; Translations: [NICOTINE DEPEND CIGARETTES UNCOMP]Onset: 96-40-9448TpvtsbqInutubmbkafb (3 sources)COUGH, UNSPECIFIED; Translations: [COUGH, UNSPECIFIED]Onset: 80-35-3938Cpopwdcnrvxz (1 source)CONTACT W/AND (SUSP) EXPOS COVID-19; Translations: [CONTACT W/AND (SUSP) EXPOS COVID-19]Onset: 94-84-0847Kbkuwuqgzgdh (3 sources)LOW BACK PAIN, UNSPECIFIED; Translations: [LOW BACK PAIN, UNSPECIFIED]Onset: 03-25-2022 Past or Other Problems Problem ClassificationProblemDateDocumented DateEpisodic/ChronicAbdominal pain (6 sources)Epigastric pain; Translations: [Pelvic and perineal pain]Onset: 34-74-6456JuzkbwfxNnjgumv obstructive pulmonary disease and bronchiectasis (1 source)Bronchitis; Translations: [Bronchitis]EpisodicE Codes: Fall (1 source)Fall on same level from slipping, tripping and stumbling without subsequent striking against object, initial encounter; Translations: [FALL SAME LVL SLIP NO STRK OBJ INIT]Onset: 15-88-9222BtknjqbxDijjl connective tissue disease (3 sources)Pain in left leg; Translations: [PAIN IN LEFT LEG]Onset: 03-08-2022 EpisodicOther connective tissue disease (1 source)Pain in left lower leg; Translations: [PAIN IN LEFT LOWER LEG]Onset: 09-05-1234YbcljfebWfjwf lower respiratory disease (1 source)Solitary pulmonary nodule; Translations: [SOLITARY PULMONARY NODULE] Onset: 05-10-3056VqxbltxpAqxug non-traumatic joint disorders (3 sources)Pain in left knee; Translations: [PAIN IN LEFT KNEE]Onset: 02-27-2022 EpisodicPleurisy; pneumothorax; pulmonary collapse (1 source)Pleurisy; Translations: [PLEURISY]Onset: 63-15-0732WfooiyglIgbykfc and strains (9 sources)Sprain of other specified parts of left knee, initial encounter; Translations: [Sprain of other specified parts of left knee, subsequent encounter]Onset: 03-01-2022 Resolved: 53-76-6250RlwjbdsbXsvhjjeecigc (1 source)COUGH, UNSPECIFIED; Translations: [COUGH, UNSPECIFIED]Onset: 36-05-8074Lzvzaiiaxcjo (1 source)LOW BACK PAIN, UNSPECIFIED; Translations: [LOW BACK PAIN, UNSPECIFIED] Onset: 03-23-2022 Results Test NameValueInterpretationReference RangeFacilityMR head/brain wo/w conon 16-20-6857IB head/brain wo/w [facility] Main [address] [address] MRI Report Signed Patient: Lilly Beckham MR#: [id number] : 1985 Acct:[id number] Age/Sex: 39 / F ADM Date: 05/08/25 Loc: MR Room: Type: [facility] Attending Dr: Sherita Calle APRN Copies to: Sherita Calle APRN Ordering Provider: Sherita Calle APRN Date of Service: 05/08/25 MR/MR head/brain wo/w con: R93.0 - Abnormal findings on diagnostic imaging of skull ... MR head/brain wo/w con 05/08/2025 5:29 PM SIGN AND SYMPTOMS: Pain and paresthesia on left side slowly crossing over to right-sided body. Posterior headaches. PROTOCOL: Multiplanar multisequence MR images of the brain with and without IV contrast CONTRAST: 19 mL of ProHance COMPARISON: None. FINDINGS: Extra axial spaces: Age appropriate. Hemorrhage: None. Ventricular system: Within normal limits. Basal cisterns: Within normal limits and not effaced. Cerebral parenchyma: Punctate foci of T2 and FLAIR hyperintensity of the periventricular and subcortical white matter. No abnormal postcontrast enhancement. Midline shift: None.. Cerebellum: Within normal limits. Brainstem: Within normal limits. OTHER: Calvarium: Normal marrow signal. Vascular system: Satisfactory flow voids within the anterior and posterior circulation. 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 This is a normal variant. Visualized Paranasal sinuses: Within normal limits. Visualized Orbits: Within normal limits. Visualized upper cervical spine: Within normal limits. Sella and skull base: Their is flattening of the pituitary within the sella which is a patient's age. MR/MR head/brain wo/w con IMPRESSION: Punctate foci of T2 and FLAIR hyperintensity of the periventricular and subcortical white matter. This is nonspecific but may represent sequelae of demyelinating disease. No abnormal postcontrast enhancement. There is flattening of the pituitary within the sella which is atypical for the patient's age. Impression dictated by: Ranjan Orourke M.D. 05/08/2025 7:13 PM Dictation Location: [place] [address] Transcribed By: ACE 05/08/251912 Dictated By: Ranjan Orourek II, MD 05/08/251904 Signed By: 05/08/251912[facility] GroupNhgnetic resonance imaging reportOrdered By: Ranjan Orourke on 93-29-3003Gbmxo reportMER[facility] Main [place] [address] [place] [address] MRI Report Signed Patient: Lilly Beckham MR# : [id number] : 1985 Acct:[id number] Age/Sex: 39 / F ADM Date: 5 Loc: MR Room: Type: [facility] Attending Dr: Sherita Calle APRN Copies to: Sherita Calle APRN~ Ordering Provider: Sherita Calle APRN Date of Service: 05/08/25 MR/MR head/brain wo/w con: R93.0 - Abnormal findings on diagnostic imaging of skull ... MR head/brain wo/w con 05/08/2025 5:29 PM SIGN AND SYMPTOMS: Pain and paresthesia on left side slowly crossing over to right-sided body. Posterior headaches. PROTOCOL: Multiplanar multisequence MR images of the brain with and without IV contrast CONTRAST: 19 mL of ProHance COMPARISON: None. FINDINGS: Extra axial spaces: Age appropriate. Hemorrhage: None. Ventricular system: Within normal limits. Basal cisterns: Within normal limits and not effaced. Cerebral parenchyma: Punctate foci of T2 and FLAIR hyperintensity of the periventricular and subcortical white matter. No abnormal postcontrast enhancement. Midline shift: None.. Cerebellum: Within normal limits. Brainstem: Within normal limits. OTHER: Calvarium: Normal marrow signal. Vascular system: Satisfactory flow voids within the anterior and posterior circulation. There is a developmental venous anomaly in the right occipital andposterior temporal lobe. This is a normal variant. Visualized Paranasal sinuses: Within normal limits. Visualized Orbits: Within normal limits. Visualized upper cervical spine: Within normal limits. Sella and skull base: Their is flattening of the pituitary within the sella which is a patient's age. MR/MR head/brain wo/w con IMPRESSION: Punctate foci of T2 and FLAIR hyperintensity of the periventricular and subcortical white matter. This is nonspecific but may represent sequelae of demyelinating disease. No abnormal postcontrast enhancement. There is flattening of the pituitary within the sella which is atypical for the patient's age. Impression dictated by: Ranjan Orourke M.D. 05/08/2025 7:13 PM Dictation Location: RADIO-PC-17 Transcribed By: ACE 05/08/251912 Dictated By: Ranjan Orourke II, MD 05/08/251904 Signed By: 05/08/251912 [facility] Work Phone: CNPNon [phone] (BENJI) LILLY BECKHAM ([id number]) 1985 F Date Time Provider Department 08/20/24 [...] medications without consulting their prescribing physician. The [facility] recommended the following [...] (None) Encounter Status:Closed by KAREN LONG on 08/20/24[facility] HospitalAMYLASEon 61-62-7419Bygwyns [Catalytic activity/Vol]39 U/ERadjsd46-981 The [facility] CenterComment on above:Performed By: #### ROMÁN WORRELL, CMP ####[facility] [address]gbx[address] [place] [address]Dr. Nicky SimmonsCBC AUTO DIFFon 79-38-4629AGRL #0.1 103/ulNormal0.0-0.1The [facility] CenterComment on above:Performed By: #### CBC ####[facility] Huforudoan70[address] [place] [address]Dr.Nicky SimmonsBasophils/100 WBC (Bld)0.5 %Normal0.2-2.0The [facility] CenterComment on above:Performed By: #### CBC ####[facility] Lgjacemifb[address] [place], [place] [address]Dr.Yilan ChangEO #0.2 103/ulNormal0.0-0.7The [facility] CenterComment on above:Performed By: #### CBC ####[facility] Sdmjsgabmo5[address] [place] [address]Dr.Nicky ChangEosinophils/100 WBC (Bld)1.7 %Normal 0.9-7.0The [facility] CenterComment on above:Performed By: #### CBC ####[facility] Qblgxjcvni0549 [place] [address]Dr.Nicky Simmons Erythrocyte distribution width (RBC) [Ratio]13.0 %Ryxfum22.0-15.0The [facility] CenterComment on above:Performed By: #### CBC ####[facility] Zlgnxkjnhm4[address] [place] [address]Dr.Nicky SimmonsHematocrit (Bld) [Volume fraction]39.9 %Jfcmln66.0-48.0The [facility] CenterComment on above:Performed By: #### CBC ####[facility] Xkbaisdwwo10[address] [place] [address]Dr.Nicky TroyHemoglobin (Bld) [Mass/Vol]13.2 g/dL Mlvrca89.0-16.0The [facility] HospitalComment on above:Performed By: #### CBC ####[facility] Stgvnltdfo[address] [place], [place] [address]Dr. Yilan ChangIG #0.05 10e3/ulCritically high0.00-0.03The [facility] CenterComment on above:Performed By: #### CBC ####[facility] Ofbqwsgald[address] [place], [place] [address]Dr.Nicky ChangIG %0.5 %Normal0.0-0.5The [facility] CenterComment on above:Performed By: #### CBC ####[facility] Enxqhpwcgt[address] [place], [place] [address]Dr.Nicky ChangLYMPH #3.1 103/ulNormal1.2-3.8The [facility] CenterComment on above:Performed By: #### CBC ####[facility] Hvtjpqyogv[address] [place], [place] [address]Dr. Nicky SimmonsLymphocytes/100 WBC (Bld)28.3 %Eoyapp59.5-60.0The [facility] Comment on above:Performed By: #### CBC ####[facility] Hssljvmmci[address] [place], [place] [address]Dr.Dulceuday SimmonsMANUAL DIFF REQNONormalThe [facility] CenterComment on above:Performed By: #### CBC ####[facility] Dbmznuqnqx[address] [place], [place] [address]Dr.Nicky SimmonsMCH (RBC) [Entitic mass]28.7 cuGgyxxn02.7-34.0The [facility] CenterComment on above: Performed By: #### CBC ####[facility] Qmhgbsjcnb4[address] [place] [address]Dr.Nicky SimmonsMCHC (RBC) [Mass/Vol]33.1 g/dLNormal 29.9-35.2The [facility] CenterComment on above:Performed By: #### CBC ####[facility] Levmgpjvcj45[address] [place], [place] [address]Dr. Nicky SimmonsMCV (RBC) [Entitic vol]86.7 sVKyrnko22.0-99.0The [facility] Comment on above:Performed By: #### CBC ####[facility] Fplpjwdwzz[address] [place], [place] [address]Dr.Nicky SimmonsMONO #0.6 103/ulNormal0.3-0.8 The [facility] CenterComment on above:Performed By: #### CBC ####[facility] Ruawdswiym[address] [place], [place] [address]Dr.Nicky Simmons Monocytes/100 WBC (Bld)5.6 %Normal1.7-12.0The [facility] CenterComment on above: Performed By: #### CBC ####[facility] Dywpbsfwkh57[address] [place], [place] [address]Dr.Nicky SimmonsNEUT #7.0 103/ulCritically high1.4-6.5 [facility] SpringfieldComment on above:Performed By: #### CBC ####[facility] Tfvvpskujx[address] [place], [place] [address]Dr.Nicky Simmons Neutrophils/100 WBC (Bld)63.4 %Loldha36.0-75.0The [facility] CenterComment on above:Performed By: #### CBC ####[facility] Iichtojaxl[address] [place], [place] [address]DrNadine SimmonsPlatelet mean volume (Bld) [Entitic vol] 9.0 fLCritically low9.5-13.5The [facility] CenterComment on above:Performed By: #### CBC ####[facility] Tdptgyrdqr[address] [place], [place] [address]Dr.Nicky SimmonsPLT358 103/ksKqpwyu296-486Edk [facility] CenterComment on above:Performed By: #### CBC ####[facility] Bbegypimdc89[address] [place] [address]DrNadine SimmonsRBC4.60 106/ulNormal4.20-5.40The [facility] CenterComment on above:Performed By: #### CBC ####[facility] Ypiazpheua0838 [place] [address]DrNadine SimmonsWBC11.0 103/ul Normal4.0-11.0The [facility] CenterComment on above:Performed By: #### CBC ####[facility] Krksltamvn8[address] [place] [address]Dr. Nicky SimmonsCT ABD/PELV W CONon 98-27-7861OR ABD/PELV W CONEXAMINATION: CT ABD/PELV W CON HISTORY: GENERALIZED ABDOMINAL [...] Electronically authenticated by: PRINCESS DESIR Date: 2023-01-19 13:26[facility] CenterDRUG SCREEN RAPID (URINE)on 51-87-2482IQWXbvfagjyPlgtiaMMGDTZSJ The [facility] CenterComment on above:Performed By: #### DRUGRPD ####[facility] Bgpkitohmv[address] [place] [address]Dr. Nicky SimmonsBAR NegativeNormalNEGATIVEKettering Health SpringfieldComment on above:Performed By: #### DRUGRPD ####[facility] Phljbcppih[address] [place], [place] [address]Dr. Nicky SimmonsBUPNegativeNormalNEGATIVEKettering Health SpringfieldComment on above:Performed By: #### DRUGRPD ####[facility] Xdhepeflcy[address] [place], [place] [address]Dr. Nicky SimmonsBZONegativeNormalNEGATIVEKettering Health SpringfieldComment on above:Performed By: #### DRUGRPD ####[facility] Pywpejqdix[address] [place], [place] [address]Dr. Nicky SimmonsCOCNegative NormalNEGATIVEKettering Health SpringfieldComment on above:Performed By: #### DRUGRPD ####[facility] Hhbjaelpki[address] [place], [place] [address]Dr. Nicky SimmonsCUT-EXCELA HEALTHE Ohio State Health SystemComment on above:Result Comment: AMP (Amphetamine): 500ng/mL, BAR (Barbituates): 200 ng/mL, BZO (Benzodiazepines): 150 ng/mL, BUP (Buprenorphine): 10 ng/mL, DON (Cocaine): 150 ng/mL, mAMP (Methamphetamine): 500 ng/mL, MTD (Methadone): 200 ng/mL, OPI (Opiates): 100 ng/mL, OXY (Oxycodone): 100 ng/mL, PCP (Phencyclidine): 25 ng/mL, PPX (Propoxyphene): 300 ng/mL, THC (Cannabinoids): 50 ng/mL, TCA (Trycyclic Antidepressants): 300 ng/mLPerformed By: #### DRUGRPD ####[facility] Txdqtklpbb[address] [place], [place] [address]Dr. Nicky SimmonsDRUG CUT HEADERDRUG CLASS TEST SYSTEM CUT-OFF CONCENTRATIONS ARE FOLLOWS:NormalKettering Health SpringfieldComcorewell health greenville hospital on above:Performed By: #### DRUGRPD ####[facility] Rpaitnfluj[address] [place], [place] [address]Dr. Dulceuday SimmonsmAMP NegativeNormalNEGATIVEThe [facility]she[facility] HospitalComment on above:Performed By: #### DRUGRPD ####[facility] Jdbtkxhnju84[address] [place] [address]Dr. Yilan ChangMTDNegativeNormalNEGATIVEOhiohealth Dublin Methodist Hospital HospitalComment on above:Performed By: #### DRUGRPD ####[facility] Ykxqbcqhio13[address] [place] [address]Dr. Yilan ChangOPIPositiveAbnormalNEGATIVEOhiohealth [facility] Hospital HospitalComment on above:Performed By: #### DRUGRPD ####[facility] Jtjhtjzqzi6[address] [place] [address]Dr. Yilan ChangOXYNegative NormalNEGATIVEOhiohealth Dublin Methodist Hospital HospitalComment on above:Performed By: #### DRUGRPD ####[facility] Mgnwodvhkt350[address] [place] [address]Dr. Yilan ChangPCPNegativeNormalNEGATIVEOhiohealth Dublin Methodist Hospital HospitalComment on above: Performed By: #### DRUGRPD ####[facility] Owfxuaymag28[address] [place] [address]Dr. Yilan ChangPPXNegativeNormalNEGATIVEOhiohealth Dublin Methodist Hospital HospitalComment on above:Performed By: #### DRUGRPD ####[facility] Qjlaweuexl22[address] [place] [address]Dr. Nicky ChangTCANegative NormalNEGATIVEOhiohealth Dublin Methodist Hospital HospitalComment on above:Performed By: #### DRUGRPD ####[facility] Dnulppajpg[address] [place], [place] [address]Dr. Yilan ChangTHCPositiveAbnormalNEGATIVEOhiohealth Dublin Methodist Hospital HospitalComment on above: Performed By: #### DRUGRPD ####[facility] Puljvlpmdh[address] [place], [place] [address]Dr. Nicky ChangER URINE PROFILEon 35-17-7600Iqihmnuwj Ql (U)NegativeNormalNEGATIVEOhiohealth Dublin Methodist Hospital HospitalComment on above:Performed By: #### CBC #### [facility] [address] [place] [address] [address] Nicky SimmonsClarity (U)CLEARNormalCLEARThe [facility] HospitalComment on above: Performed By: #### CBC #### [facility] [address] [place] [address] [address] Nicky Sorensen (U)LT. YELLOWNormalYELLOWKettering Health SpringfieldComment on above:Performed By: #### CBC #### [facility] [address] [place] [address] [address] Nicky Keita micrscopic examination will be performed if indicated. NormalThe [facility] CenterComment on above:Performed By: #### CBC #### [facility] [address] [place] [address] [address] Nicky SimmonsGlucose Ql (U)NegativeNormalNEGATIVEKettering Health SpringfieldComment on above:Performed By: #### CBC #### [facility] [address] [place] [address] Dr. Nicky SimmonsHemoglobin Ql (U)NegativeNormalNEGATIVEWilson Street Hospital on above:Performed By: #### CBC #### [facility] [address] [place] [address] [address] Nicky SimmonsKetones Ql (U)NegativeNormalNEGATIVEKettering Health SpringfieldComment on above:Performed By: #### CBC #### [facility] [address] [place] [address] Dr. Nicky SimmonsLEUKOCYTESSMALLAbnormalNEGATIVEKettering Health SpringfieldComcorewell health greenville hospital on above:Performed By: #### CBC #### [facility] [address] [place] [address] [address] Nicky SimmonsNitrite Ql (U)NegativeNormalNEGATIVEKettering Health SpringfieldComment on above:Performed By: #### CBC #### [facility] [address] [place] [address] [address] Nicky SimmonspH (U)6.5 [pH]Normal5-9[facility] Medical Centerment on above: Performed By: #### CBC #### [facility] [address] [place] [address] [address] Nicky SimmonsSPEC GRAVITY<=1.612Zguljtff4.005-<=1.025The [facility] Comment on above:Performed By: #### CBC #### [facility] [address] [place] [address] [address] Nicky Leblanc PROTEINNegativeNormalNEGATIVE/ TRACEThe [facility] Comment on above:Performed By: #### CBC #### [facility] [address] [place] [address] [address] Nicky Kay MICRO INDINDICATEDNormalThe [facility] CenterComment on above: Performed By: #### CBC #### [facility] [address] [place] [address] [address] Nicky Sneedbilino Qn (U)0.2 {Yan'U}/dLNormal0.2 - 1.0The [facility] CenterComment on above:Performed By: #### CBC #### [facility] [address] [place] [address] [address] Nicky SimmonsLIPASEon 13-10-9168Mztjrc [Catalytic activity/Vol]46.0 U/L Critically low73.0-393.0The [facility] CenterComment on above:Performed By: #### GM, LIPA, CMP ####[facility] Nvyssjmplo[address] [place] [address]DrBella Saunders ChangPROF 14(COMP METB)on 72-04-6342Nvlgxyd [Mass/Vol]3.1 g/dLCritically low3.4-5.0The [facility] CenterComment on above:Performed By: #### GM, LIPA, CMP ####[facility] [address]lozpuiksq[address] [place] [address]DrBella SimmonsAlbumin/Globulin [Mass ratio]0.8 {ratio}NormalThe [facility] CenterComment on above:Performed By: #### GM, LIPA, CMP ####[facility] Dakffeomrz[address] [place] [address]Dr. Nicky SimmonsALP [Catalytic activity/Vol]102 U/NVkdcyt70-073Ptf [facility] Comment on above:Performed By: #### GM, LIPA, CMP ####[facility] Nuxhrpdqob[address] [place] [address]Dr. Yilan ChangALT [Catalytic activity/Vol]64 U/LCritically yiei66-05Wxw [facility] CenterComment on above: Performed By: #### GM, LIPA, CMP ####[facility] Yjoetjdxll24[address] [place] [address]Dr. Yilan ChangAnion gap [Moles/Vol]15.6 mmol/LNormal The [facility] CenterComment on above:Performed By: #### GM, LIPA, CMP ####[facility] Kcxofnaekv[address] [place] [address]Dr. Yilan ChangAST [Catalytic activity/Vol]28 U/FEukbpg79-97Enn [facility] Comment on above:Performed By: #### GM, LIPA, CMP ####[facility] Eszmdofglf[address] [place] [address]Dr. Yilan ChangBilirubin [Mass/Vol]0.4 mg/dLNormal0.2-1.0The [facility] CenterComment on above:Performed By: #### GM, LIPA, CMP ####[facility] Cpipjivsbl[address] [place], [place] [address]Dr. Yilan ChangCalcium [Mass/Vol]8.9 mg/dLNormal 8.5-10.1The [facility] CenterComment on above:Performed By: #### GM, LIPA, CMP ####[facility] Jblstikhip[address] [place] [address]Dr. Yilan ChangChloride [Moles/Vol]105 mmol/NXkdojs39-480Wcr [facility] Comment on above:Performed By: #### GM, LIPA, CMP ####[facility] Lqnvsohrjh[address] [place], [place] [address]Dr. Yilan ChangCO2 [Moles/Vol]23.0 mmol/WUfxmiw35.0-32.0The [facility] CenterComment on above: Performed By: #### GM, LIPA, CMP ####[facility] Wfnbkuxpoa[address] [place], [place] [address]Dr. Yilan ChangCreatinine [Mass/Vol]0.71 mg/dLNormal 0.55-1.02The [facility] CenterComment on above:Performed By: #### ROMÁN WORRELL, CMP ####[facility] Gywlootsxg[address] [place] [address]Dr. Yilan ChangEGFR-AF BRUNEIAN>60Normal>=60The [facility] CenterComment on above: Performed By: #### GM LIPA, CMP ####[facility] Acfrfxfzos[address] [place], [place] [address]Dr. Yilan ChangEGFR-NON AF BRUNEIAN>60Normal>=60The [facility] CenterComment on above:Performed By: #### GM LIPA, CMP ####[facility] Tmizhrhdcn[address] [place], [place] [address]Dr. Yilan Simmons Globulin (S) [Mass/Vol]4.0 g/dLNormalThe [facility] CenterComment on above: Performed By: #### GM LIPA, CMP ####[facility] Hrevivirqw[address] [place], [place] [address]Dr. Yilan ChangGlucose [Mass/Vol]99 mg/vTVazmxu98-618 The [facility] CenterComment on above:Performed By: #### GM LIPA, CMP ####[facility] Sxarkpezht[address] [place], [place] [address]Dr. Yilan ChangPotassium [Moles/Vol]3.6 mmol/LNormal3.5-5.1The [facility] Comment on above:Performed By: #### GM LIPA, CMP ####[facility] Gslxvwhwwi[address] [place], [place] [address]Dr. Yilan ChangProtein [Mass/Vol]7.1 g/dLNormal6.4-8.2The [facility] CenterComment on above:Performed By: #### GM LIPA, CMP ####[facility] Lghaueucst[address] [place], [place] [address]Dr. Yilan ChangSodium [Moles/Vol]140 mmol/LNormal 136-145The [facility] CenterComment on above:Performed By: #### GM, LIPA, CMP ####[facility] [address]hsdzqvyk[address] [place] [address]Dr. Nicky SimmonsUrea nitrogen [Mass/Vol]8.0 mg/dLNormal7.0-18.0The [facility] Comment on above:Performed By: #### FABRIZIO WORRELLA, CMP ####[facility] [address] [address]Dr. Nicky ChangUrea nitrogen/Creatinine [Mass ratio]11.3 mg/mgNoOhioHealth O'Bleness HospitalComment on above:Performed By: #### GM LIPA, CMP ####[facility] [address] [address]Dr. Nicky SimmonsURINE MICROSCOPIC ONLYon [id number]I SEENKettering Health SpringfieldComment on above: Performed By: #### CBC #### [facility] [address] [address] [address] Nicky Hong identified Cx Nom (U)INDICATEDNoOhioHealth O'Bleness HospitalComment on above:Performed By: #### CBC #### [facility] [address] [address] [address] Nicky Luque SEENNormalNONE SEENMartin Memorial Hospital on above:Performed By: #### CBC #### [facility] [address] [address] [address] Nicky Murphy LM Nom (Urine sed)NONE SEENNormalNONE SEENThe [facility] CenterComcorewell health green[facility] hospital on above:Performed By: #### CBC #### [facility] [address] [address] [address] Saunders ChangEpithelial cells LM Ql (Urine sed)FEWAbnormalNONE SEEN /RAREThe [facility] CenterComcorewell health greenville hospital on above:Performed By: #### CBC #### [facility] [address] [address] [address] Nicky Champagne SEENNoatrium health wake [facility] centerNONE SEENKettering Health SpringfieldComcorewell health greenville hospital on above:Performed By: #### CBC #### [facility] [address] [place] [address] Dr. Nicky SimmonsWqbiwQBV4-4Mhwmpw9-9Nia Bellevue HospitalComment on above:Performed By: #### CBC #### [facility] [address] [place] [address] Dr. Nicky SimmonsWBC2-5AbnormalNONE SEENThe [facility] CenterComment on above: Performed By: #### CBC #### [facility] [address] [place] [address] Dr. Nicky SimmonsXR CHEST 1 Von [id number] CHEST 1 VEXAMINATION: XR CHEST 1 V HISTORY: Cough COMPARISON: Chest x-ray 09/06/2022 TECHNIQUE: Portable chest FINDINGS: The lung parenchyma is free of consolidation or infiltrate. No pneumothorax or pleural effusion. The cardiac, mediastinal and hilar contours are normal. The visualized osseous structures exhibit no gross abnormality. IMPRESSION: No acute cardiopulmonary abnormality. Electronically authenticated by: SREE MCCLENDON Date: 2023-01-11 21:21NoOhioHealth [facility] AUTO DIFFon [id number] #0.0 103/ulNormal0.0-0.1K[facility]tering Health SpringfieldComment on above:Performed By: #### CBC #### [facility] [address] [place] [address] Dr. Nicky SimmonsBasophils/100 WBC (Bld)0.3 %Normal0.2-2.0[facility] Comment on above:Performed By: #### CBC #### [facility] [address] [place] [address] Dr. Nicky Alexander #0.2 103/ulNormal0.0-0.7The [facility] CenterComment on above: Performed By: #### CBC #### [facility] [address] [place] [address] Dr. Nicky Gaxiolaosinophils/100 WBC (Bld)1.4 %Normal0.9-7.0[facility] Comment on above:Performed By: #### CBC #### [facility] [address] [place] [address] Dr. Yilan ChangErythrocyte distribution width (RBC) [Ratio]13.0 %Dfxbqu55.0-15.0 The [facility] CenterComment on above:Performed By: #### CBC #### [facility] [address] [place] [address] Dr. Nicky SimmonsHematocrit (Bld) [Volume fraction]40.3 %Lhreow06.0-48.0The [facility] CenterComment on above:Performed By: #### CBC #### [facility] [address] [place] [address] Dr. Nicky SimmonsHemoglobin (Bld) [Mass/Vol]13.5 g/bRYiaovh06.0-16.0The [facility] CenterComment on above:Performed By: #### CBC #### [facility] [address] [place] [address] Dr. Nicky Faoroq #0.03 10e3/ulNormal0.00-0.03The [facility] CenterComment on above:Performed By: #### CBC #### [facility] [address] [place] [address] Dr. Nicky Farooq %0.3 %Normal0.0-0.5The [facility] CenterComment on above: Performed By: #### CBC #### [facility] [address] [place] [address] Dr. Nicky Martinez #3.3 103/ulNormal1.2-3.8The [facility] CenterComment on above:Performed By: #### CBC #### [facility] [address] [place] [address] Dr. Nicky Sheppardhocytes/100 WBC (Bld)27.9 %Woqhcg47.5-60.0The [facility] CenterComment on above:Performed By: #### CBC #### [facility] [address] [place] [address] Dr. Nicky HajiUAL DIFF REQNONormalThe [facility] CenterComment on above: Performed By: #### CBC #### [facility] [address] [place] [address] Dr. Nicky Esteban (RBC) [Entitic mass]29.3 ljPmqhcr57.7-34.0The [facility] CenterComment on above:Performed By: #### CBC #### [facility] [address] [place] [address] Dr. Nicky Beltran (RBC) [Mass/Vol]33.5 g/hLHcgptf95.9-35.2The [facility] CenterComment on above:Performed By: #### CBC #### [facility] [address] [place] [address] Dr. Nicky Beltran (RBC) [Entitic vol]87.4 uFVlpxhi23.0-99.0The [facility] CenterComment on above:Performed By: #### CBC #### [facility] [address] [place] [address] Dr. Nicky Alva #0.7 103/ulNormal0.3-0.8The [facility] CenterComment on above:Performed By: #### CBC #### [facility] [address] [place] [address] Dr. Nicky Merinoocytes/100 WBC (Bld)6.0 %Normal1.7-12.0The [facility] Comment on above:Performed By: #### CBC #### [facility] [address] [place] [address] Dr. Nicky Akhtar #7.6 103/ulCritically high1.4-6.5The [facility] Comment on above:Performed By: #### CBC #### [facility] [address] [place] [address] Dr. Nicky Ramirezutrophils/100 WBC (Bld)64.1 %Fwmhdm35.0-75.0The [facility] CenterComment on above:Performed By: #### CBC #### [facility] [address] [place] [address] Dr. Nicky Vidales mean volume (Bld) [Entitic vol]9.1 fLCritically low 9.5-13.5The [facility] CenterComment on above:Performed By: #### CBC #### [facility] [address] [place] [address] Dr. Nicky SimmonsPLT381 103/zfJjuthb759-548Wpr [facility] CenterComment on above: Performed By: #### CBC #### [facility] [address] [place] [address] Dr. Nicky SimmonsRBC4.61 106/ulNormal4.20-5.40The [facility] CenterComment on above:Performed By: #### CBC #### [facility] [address] [place] [address] Dr. Nicky SimmonsWBC11.9 103/ulCritically high4.0-11.0The [facility] CenterComment on above:Performed By: #### CBC #### [facility] [address] [place] [address] Dr. [address] [id number] Coag (PPP) [Relative time]{INR}NormalThe [facility] on above:Performed By: #### INFLUAB #### [facility] [address] [place] [address] Dr. Nicky Miller GUIDELINESSEE BELOWOhioHealth Grant Medical CenterComment on above:Result Comment: DESIRED INR: 2.0 - 3.0 CONDITIONS NOT LISTED BELOW 2.5 - 3.5 FOR PROSTHETIC HEART VALVE REPLACEMENT 2.5 - 3.5 RECURRENT THROMBOSIS Performed By: #### INFLUAB #### [facility] [address] [place] [address] Dr. Nicky Cleaning Coag (PPP) [Time]9.7 sNormal9.0-11.6The [facility] Comment on above:Performed By: #### INFLUAB #### [facility] [address] [place] [address] Dr. Nicky Barry [id number] Coag (Bld) [Time]27.9 kTcpyma95.3-36.2The [facility] on above:Performed By: #### INFLUAB #### [facility] [address] [place] [address] Dr. Yilan ChangCovid-19 PCR (CVDTBH)on [id number]-CoV-2 (COVID-19) RNA GOKUL+probe Ql (Unsp spec)Not detectedNormalNOT DETECTEDThe [facility] Comment on above:Result Comment: When diagnostic testing is negative, the [...] for this test is supported by the [place] of Health and Human Service's declaration that circumstances exist to justify the emergency use of in vitro diagnostics for the detection and/or diagnosis of the virus that causes COVID-19. This EUA will remain in effect for the duration of the COVID-19 declaration justifying emergency of IVDs, unless it is terminated or revoked by the FDA (after which the test may no longer be used).Performed By: #### CVDTBH #### [facility] [address] [place] [address] Dr. Nicky Silvestre STREP CULTUREon 11-13-2022S. pyogenes Ag Ql (Unsp spec) Culture Observations: NEGATIVE FOR GROUP A STREPTOCOCCUS.NormalThe [facility] CenterComment on above: Performed By: #### CBC #### [facility] [address] [place] [address] Dr. Nicky SimmonsINFLUENZA A AND B AGon [id number] A AGNegativeNormal NEGATIVE SEE COMMENTThe [facility] CenterComment on above:Performed By: #### INFLUAB #### [facility] [address] [place] [address] Dr. Nicky SimmonsINFLFILIBERTO B AGNegativeNormalNEGATIVE SEE COMMENTThe [facility] CenterComment on above:Performed By: #### INFLUAB #### [facility] [address] [place] [address] Dr. Nicky SimmonsSTREPT SCREENon [id number] SCREEN ANegativeNormalNEGATIVEKettering Health SpringfieldComment on above:Performed By: #### CBC #### [facility] [address] [place] [address] Dr. Nicky Fontaine A STREP CULTUREon 11-02-2022S. pyogenes Ag Ql (Unsp spec) Culture Observations: NEGATIVE FOR GROUP A STREPTOCOCCUS.NormalThe [facility] CenterComment on above: Performed By: #### CBC #### [facility] [address] [place] [address] Dr. Nicky DominguezREPT SCREENon 03-09-6964CSYPI SCREEN ANegativeNormalNEGATIVEKettering Health SpringfieldComment on above:Performed By: #### CBC #### [facility] [address] [place] [address] Dr. Nicky Ingram AUTO DIFFon [id number] #0.0 103/ulNormal0.0-0.1The [facility] CenterComment on above:Performed By: #### CBC #### [facility] [address] [place] [address] Dr. Nicky Bernabesophils/100 WBC (Bld)0.3 %Normal0.2-2.0[facility] Comment on above:Performed By: #### CBC #### [facility] [address] [place] [address] Dr. Nicky Alexander #0.2 103/ulNormal0.0-0.7The [facility] CenterComment on above: Performed By: #### CBC #### [facility] [address] [place] [address] Dr. Nicky Gaxiolaosinophils/100 WBC (Bld)1.2 %Normal0.9-7.0The [facility] Comment on above:Performed By: #### CBC #### [facility] [address] [place] [address] Dr. Nicky Gaxiolarythrocyte distribution width (RBC) [Ratio]12.9 %Rqscaf49.0-15.0 The [facility] CenterComment on above:Performed By: #### CBC #### [facility] [address] [address] [address] Nicky SimmonsHematocrit (Bld) [Volume fraction]45.3 %Gmoyfs31.0-48.0The [facility] CenterComment on above:Performed By: #### CBC #### [facility] [address] [address] [address] Nicky SimmonsHemoglobin (Bld) [Mass/Vol]15.1 g/zEJncscf02.0-16.0The [facility] CenterComment on above:Performed By: #### CBC #### [facility] [address] [address] [address] Nicky Farooq #0.07 10e3/ulCritically high0.00-0.03The [facility] Comment on above:Performed By: #### CBC #### [facility] [address] [place] [address] Dr. Nicky SimmonsIG %0.4 %Normal0.0-0.5The [facility] CenterComment on above: Performed By: #### CBC #### [facility] [address] [address] [address] Nicky Martinez #1.1 103/ulCritically low1.2-3.8The [facility] Comment on above:Performed By: #### CBC #### [facility] [address] [place] [address] Dr. Nicky Harpermphocytes/100 WBC (Bld)7.1 %Critically low20.5-60.0The [facility] CenterComment on above:Performed By: #### CBC #### [facility] [address] [place] [address] Dr. Nicky SimmonsMANUAL DIFF REQNONormalThe [facility] CenterComment on above: Performed By: #### CBC #### [facility] [address] [place] [address] Dr. Nicky Esteban (RBC) [Entitic mass]28.8 jyKkgjzg29.7-34.0The [facility] CenterComment on above:Performed By: #### CBC #### [facility] [address] [address] [address] Nicky BeltranHC (RBC) [Mass/Vol]33.3 g/hMVhuedc47.9-35.2The [facility] CenterComment on above:Performed By: #### CBC #### [facility] [address] [place] [address] Dr. Nicky BeltranV (RBC) [Entitic vol]86.3 sZFenwmi02.0-99.0The [facility] CenterComment on above:Performed By: #### CBC #### [facility] [address] [place] [address] Dr. Nikcy Alva #0.4 103/ulNormal0.3-0.8The [facility] CenterComment on above:Performed By: #### CBC #### [facility] [address] [place] [address] Dr. Nicky Merinoocytes/100 WBC (Bld)2.6 %Normal1.7-12.0The [facility] Comment on above:Performed By: #### CBC #### [facility] [address] [place] [address] Dr. Nicky Akhtar #14.0 103/ulCritically high1.4-6.5The [facility] Comment on above:Performed By: #### CBC #### [facility] [address] [place] [address] Dr. Nicky Ramirezutrophils/100 WBC (Bld)88.4 %Critically high43.0-75.0The [facility] CenterComment on above:Performed By: #### CBC #### [facility] [address] [place] [address] Dr. Nicky Lundberglet mean volume (Bld) [Entitic vol]9.4 fLCritically low 9.5-13.5The [facility] CenterComment on above:Performed By: #### CBC #### [facility] [address] [place] [address] Dr. Nicky SimmonsPLT399 103/nbSkybtu526-746Ncw [facility] CenterComment on above: Performed By: #### CBC #### [facility] [address] [place], [place] [address] Dr. Nicky SimmonsRBC5.25 106/ulNormal4.20-5.40The [facility] CenterComment on above:Performed By: #### CBC #### [facility] [address] [place], [place] [address] Dr. Nicky SimmonsWBC15.9 103/ulCritically high4.0-11.0The [facility] CenterComment on above:Performed By: #### CBC #### [facility] [address] [place], [place] [address] Dr. Nicky SimmonsCT ABD/PELVIS WO CONon [id number] ABD/PELVIS WO CONEXAMINATION: CT ABD/PELVIS WO CON, 10/21/2022 11:30 PM [...] Electronically authenticated by: JUDY CONKLIN Date: 2022-10-22 00:08[facility] URINE PROFILEon 04-50-3122Kcqaqzcel Ql (U)SMALLAbnormal NEGATIVEKettering Health SpringfieldComment on above:Performed By: #### ERUR, PREGU ####[facility] [address] [place], [place] [address]Dr. Yilan ChangClarity (U)CLEARNormalCLEARKettering Health SpringfieldComment on above: Performed By: #### ERUR, PREGU ####[facility] [address] [place], [place] [address]Dr. Yilan ChangColor (U)DK. YELLOWNormalYELLOWKettering Health SpringfieldComment on above:Performed By: #### ERUR, PREGU ####[facility] [address] [place], [place] [address]Dr. Nicky LAWRENCEDA micrscopic examination will be performed if indicated.NormalKettering Health SpringfieldComment on above:Performed By: #### ERUR, PREGU ####[facility] [address] [place], [place] [address]Dr. Yilan ChangGlucose Ql (U) NegativeNormalNEGATIVEKettering Health SpringfieldComment on above:Performed By: #### ERUR, PREGU ####[facility] [address] [place], [place] [address]Dr. Dulcelan ChangHemoglobin Ql (U)NegativeNormalNEGATIVEKettering Health Springfield Comment on above:Performed By: #### ERUR, PREGU ####[facility] [address]vnbs[address] [place], [place] [address]Dr. Yilan ChangKetones Ql (U) 15 mg/dlAbnormalNEGATIVEKettering Health SpringfieldComment on above:Performed By: #### ERUR, PREGU ####[facility] [address] [place], [place] [address]Dr. Dulcelan ChangLEUKOCYTESNegativeNormalNEGATIVEKettering Health SpringfieldComment on above:Performed By: #### ERUR, PREGU ####[facility] [address] [id number]. Nicky ChangNitrite Ql (U)NegativeNormal NEGATIVEThe [facility] CenterComment on above:Performed By: #### ERUR, PREGU ####[facility] [address] [id number]. Dulceuday ChangpH (U)5.0 [pH]Normal5-9The [facility] CenterComment on above: Performed By: #### ERUR, PREGU ####[facility] Imhx[address] [place], [place] [address]Dr. Nicky ChangSPEC GRAVITY>=1.030Abnormal 1.005-<=1.025The [facility] CenterComment on above:Performed By: #### CECILIA, PREGU ####[facility] [address] [place] [address] Dulceuday SimmonsUA PROTEINTRACENormalNEGATIVE/ TRACEThe [facility] Comment on above:Performed By: #### CECILIA, PREGU ####[facility] [address] [place], [place] [address]Dr. Nicky SimmonsUR MICRO IND NOT INDICATEDNormalThe [facility] CenterComment on above:Performed By: #### FABIENNER, PREGU ####[facility] [address] [place], [place] [address]Dr. Dulceuday TroyUrobilinogen Qn (U)0.2 {Yan'U}/dLNormal0.2 - 1.0The [facility] CenterComment on above:Performed By: #### ERUR, PREGU ####[facility] [address] [place], [place] [address]Dr. Dulceuday Smimons LIPASEon 33-96-5628Tjcqlo [Catalytic activity/Vol]56.0 U/LCritically low 73.0-393.0The [facility] CenterComment on above:Performed By: #### LIPA ####[facility] [address] [place], [place] [address]Dr. Nicky SimmonsPREG HCG QUALon 87-20-8602DVLKPCBJK, QUALNegativeNormalNEGATIVEThe Blackshear HospitalComment on above:Performed By: #### PREG ####[facility] [address] [address]Dr. Nicky ChangPREGNANCY URon 30-06-8041CSOQNZFHO, QUALNegativeNormalNEGATIVEThe [facility]she[facility] HospitalComment on above:Performed By: #### ERUR, PREGU ####[facility] [address] [address]Dr. Nicky ChangPROF 14(COMP METB)on 10-22-2022 Albumin [Mass/Vol]3.7 g/dLNormal3.4-5.0The [facility] CenterComment on above: Performed By: #### INFLUAB #### [facility] [address] [place] [address] Dr. Nicky SimmonsAlbumin/Globulin [Mass ratio]0.9 {ratio}NormalThe [facility] CenterComment on above:Performed By: #### INFLUAB #### [facility] [address] [address] [address] Nicky Bar [Catalytic activity/Vol]128 U/LCritically qmmd40-978Bdc [facility] CenterComment on above:Performed By: #### INFLUAB #### [facility] [address] [address] [address] Nicky Tan [Catalytic activity/Vol]38 U/BKxgejn61-25Skj [facility] CenterComment on above:Performed By: #### INFLUAB #### [facility] [address] [address] [address] Nicky Hameed gap [Moles/Vol]17.1 mmol/LNormalThe [facility] on above:Performed By: #### INFLUAB #### [facility] [address] [address] [address] Nicky Henry [Catalytic activity/Vol]27 U/PRanexl80-62Uqz [facility] CenterComment on above:Performed By: #### INFLUAB #### [facility] [address] [place] [address] Dr. Nicky SimmonsBilirubin [Mass/Vol]0.5 mg/dLNormal0.2-1.0The [facility] Comment on above:Performed By: #### INFLUAB #### [facility] [address] [place] [address] Dr. Nicky SimmonsCalcium [Mass/Vol]8.9 mg/dLNormal8.5-10.1The [facility] Comment on above:Performed By: #### INFLUAB #### [facility] [address] [address] [address] Nicky SimmonsChloride [Moles/Vol]102 mmol/YBwrpoc72-430Lan [facility] Comment on above:Performed By: #### INFLUAB #### [facility] [address] [place] [address] Dr. Nicky SimmonsCO2 [Moles/Vol]21.9 mmol/KWyukzj51.0-32.0The [facility] Comment on above:Performed By: #### INFLUAB #### [facility] [address] [place] [address] Dr. Nicky SimmonsCreatinine [Mass/Vol]0.77 mg/dLNormal0.55-1.02The [facility] CenterComment on above:Performed By: #### INFLUAB #### [facility] [address] [place] [address] Dr. Nicky GaxiolaGFR-AF BRUNEIAN>60Normal>=60The [facility] CenterComment on above:Performed By: #### INFLUAB #### [facility] [address] [place] [address] Dr. Nicky GaxiolaGFR-NON AF BRUNEIAN>60Normal>=60The [facility] CenterComment on above:Performed By: #### INFLUAB #### [facility] [address] [place] [address] Dr. Nicky SimmonsGlobulin (S) [Mass/Vol]3.9 g/dLNormalThe [facility] CenterComment on above:Performed By: #### INFLUAB #### [facility] [address] [place] [address] Dr. Nicky SimmonsGlucose [Mass/Vol]105 mg/jCAgcbez23-016Lun [facility] Comment on above:Performed By: #### INFLUAB #### [facility] [address] [address] [address] Nicky SimmonsPotassium [Moles/Vol]4.0 mmol/LNormal3.5-5.1The [facility] Comment on above:Performed By: #### INFLUAB #### [facility] [address] [address] [address] Nicky SimmonsProtein [Mass/Vol]7.6 g/dLNormal6.4-8.2The [facility] Comment on above:Performed By: #### INFLUAB #### [facility] [address] [place] [address] Dr. Nicky SimmonsSodium [Moles/Vol]137 mmol/MQrciek160-192Sws [facility] Comment on above:Performed By: #### INFLUAB #### [facility] [address] [place] [address] Dr. Nicky SimmonsUrea nitrogen [Mass/Vol]12.0 mg/dLNormal7.0-18.0The [facility] CenterComment on above:Performed By: #### INFLUAB #### [facility] [address] [place] [address] Dr. Nicky SimmonsUrea nitrogen/Creatinine [Mass ratio]15.6 mg/mgNormalThe [facility] CenterComment on above:Performed By: #### INFLUAB #### [facility] [address] [place] [address] Dr. Nicky MorrisonC AUTO DIFFon 54-80-6500SBAD #0.1 103/ulNormal0.0-0.1The [facility] CenterComment on above:Performed By: #### CBC ####[facility] [address] [address]Dr.Yilan SimmonsBasophils/100 WBC (Bld)0.5 %Normal0.2-2.0The [facility] CenterComment on above:Performed By: #### CBC ####[facility] [address] [address]Dr.Nicky ChangEO #0.3 103/ulNormal0.0-0.7The [facility] CenterComment on above:Performed By: #### CBC ####[facility] [address]vc[address] [place], [place] [address]Dr.Nicky ChangEosinophils/100 WBC (Bld)2.4 %Normal 0.9-7.0The [facility] CenterComment on above:Performed By: #### CBC ####[facility] Fwzekdqfrv[address] [place], [place] [address]Dr.Dulceuday Simmons Erythrocyte distribution width (RBC) [Ratio]12.7 %Ddihjc71.0-15.0The [facility] CenterComment on above:Performed By: #### CBC ####[facility] Yqanaxuccu[address] [place], [place] [address]Dr.Dulceuday ChangHematocrit (Bld) [Volume fraction]37.5 %Nmvfyb27.0-48.0The [facility] CenterComment on above:Performed By: #### CBC ####[facility] Cqlasvpbft[address] [place], [place] [address]Dr.Dulceuday ChangHemoglobin (Bld) [Mass/Vol]12.6 g/dL Gdfciz13.0-16.0The [facility] CenterComment on above:Performed By: #### CBC ####[facility] Gfkxioyaie[address] [place], [place] [address]Dr. Nicky ChangIG #0.05 10e3/ulCritically high0.00-0.03The [facility] CenterComment on above:Performed By: #### CBC ####[facility] Eagcqdqdyj[address] [place], [place] [address]Dr.Nicky ChangIG %0.4 %Normal0.0-0.5The [facility] CenterComment on above:Performed By: #### CBC ####[facility] Ckhkqamimg24[address] [place], [place] [address]Dr.Nicky ChangLYMPH #2.9 103/ulNormal1.2-3.8The [facility] CenterComment on above:Performed By: #### CBC ####[facility] [address] [place] [address]Dr. Nicky SimmonsLymphocytes/100 WBC (Bld)25.2 %Xtkrae56.5-60.0[facility] Comment on above:Performed By: #### CBC ####[facility] Iedbefbgro[address] [place], [place] [address]Dr.Dulceuday SimmonsMANUAL DIFF REQNONormalThe [facility] CenterComment on above:Performed By: #### CBC ####[facility] [address]jgrnzfpio[address] [place] [address]Dr.Nicky SimmonsH (RBC) [Entitic mass]29.4 jvCqaowq78.7-34.0The [facility] CenterComment on above: Performed By: #### CBC ####[facility] Zpzvbvyjun[address] [place], [place] [address]Dr.Nicky SimmonsMCHC (RBC) [Mass/Vol]33.6 g/dLNormal 29.9-35.2The [facility] CenterComment on above:Performed By: #### CBC ####[facility] Xorvjvlkvf[address] [place], [place] [address]Dr. Nicky SimmonsMCV (RBC) [Entitic vol]87.4 jWUiaczj85.0-99.0The [facility] Comment on above:Performed By: #### CBC ####[facility] Odljystfrs[address] [place], [place] [address]Dr.Nicky SimmonsMONO #0.7 103/ulNormal0.3-0.8 The [facility] CenterComment on above:Performed By: #### CBC ####[facility] Imrjkbnowo[address] [place], [place] [address]Dr.Dulceuday Simmons Monocytes/100 WBC (Bld)6.4 %Normal1.7-12.0The [facility] CenterComment on above: Performed By: #### CBC ####[facility] Prirlitnee[address] [place], [place] [address]Dr.Nicky SimmonsNEUT #7.5 103/ulCritically high1.4-6.5 The [facility] CenterComment on above:Performed By: #### CBC ####[facility] Xsrqjc[address] [place] [address]Dr.Nicky Simmons Neutrophils/100 WBC (Bld)65.1 %Efmoip18.0-75.0The [facility] CenterComment on above:Performed By: #### CBC ####[facility] Axjdztdjog[address] [place] [address]Dr.Nicky SimmonsPlatelet mean volume (Bld) [Entitic vol] 9.1 fLCritically low9.5-13.5The [facility] CenterComment on above:Performed By: #### CBC ####[facility] Nuozjpdrzo[address] [place], [place] [address]Dr.Nicky SmimonsPLT380 103/maYcppqd349-440Ans [facility] CenterComment on above:Performed By: #### CBC ####[facility] Wufdmmmjtd[address] [place], [place] [address]Dr.Nicky SimmonsRBC4.29 106/ulNormal4.20-5.40The [facility] CenterComment on above:Performed By: #### CBC ####[facility] Gpptmdgpxa[address] [place], [place] [address]Dr.Nicky SimmonsWBC11.5 103/ul Critically high4.0-11.0The [facility] CenterComment on above:Performed By: #### CBC ####[facility] Xtlwqwuqom[address] [place], [place] [address]Dr. Nicky SimmonsCTA CHEST WO W CONon 53-94-1438AEN CHEST WO W CONEXAMINATION: CTA CHEST WO W CON HISTORY: Severe [...] Electronically authenticated by: MUKUND MASSEY Date: 2022-09-06 19:34NormAshtabula General HospitalCovid-19 PCR (CVDTBH)on 43-35-5563KUQX-CoV-2 (COVID-19) RNA GOKUL+probe Ql (Unsp spec)Not detectedNormalNOT DETECTEDThe [facility] Comment on above:Result Comment: This test is not yet approved or cleared by the [place] FDA. When there are no FDA-approved or cleared tests available, and other criteria are met, FDA can make tests available under an emergency access mechanism called an Emergency Use Authorization (EUA). The EUA for this test is supported by the [employer] of Health and Human Service's (HHS's) declaration that circumstances exist to justify the emergency use of in vitro diagnostics for the detection and/or diagnosis of the virus that causes COVID- 19. This EUA will remain in effect (meaning [...] of clinical signs and symptoms consistent with SARS-CoV-2.Performed By: #### CVDTBH ####[facility] [address] [place], [place] [address]SyBella Saunders TroyMargaux-DIMERon 72-53-2438Q-DIMER0.62 mg/L FEUCritically high<=0.59[facility] SpringfieldComment on above:Performed By: #### DDIM ####[facility] [address]nxoxf[address] [place] [address]DrBella SimmonsD-DIMER [facility] on above:Result Comment: Increases in D-Dimer concentration observed with thromboembolic events [...] DIC, trauma, post-surgery, diabetes, thrombolytic or anticoagulant the rapy, stress, and generalized hospitalization.Performed By: #### DDIM ####[facility] Csdmrwawsw[address] [place], [place] [address]Dr. Nicky RodriguezZA A AND B AGon 73-60-1521FEOEBQAIJJREVFulton County Health Center on above:Result Comment: Negative for Flu A protein angiten. Infection due to Flu A cannot be ruled out. FluA angiten in the sample may be below the detection limit of the test.Performed By: #### CBC #### [facility] [address] [place] [address] Dr. Nicky McconnellUBNEGHAROLDO [facility] on above: Result Comment: Negative for Flu B protein antigen. Infection due to Flu B cannot be ruled out. FluB antigen in the sample may be below the detection limit of the test.Performed By: #### CBC #### [facility] [address] [place] [address] Dr. Nicky Silvestre AGNegativeNormalNEGATIVE SEE COMMENTThe [facility] on above:Performed By: #### CBC #### [facility] [address] [place] [address] Dr. Nicky Kerr AGNegativeNormalNEGATIVE SEE COMMENTThe [facility] on above:Performed By: #### CBC #### [facility] [address] [place] [address] Dr. Nicky SimmonsPROF CHEM 8 (BAS METB)on 03-50-7477Lwyiq gap [Moles/Vol]12.7 mmol/LNormalThe [facility] CenterComment on above:Performed By: #### INFLUAB #### [facility] [address] [place] [address] Dr. Nicky SimmonsCalcium [Mass/Vol]8.6 mg/dLNormal8.5-10.1The [facility] Comment on above:Performed By: #### INFLUAB #### [facility] [address] [address] [address] Nicky SimmonsChloride [Moles/Vol]103 mmol/LJvinzl86-306Uhy [facility] Comment on above:Performed By: #### INFLUAB #### [facility] [address] [place] [address] Dr. Nicky SimmonsCO2 [Moles/Vol]24.9 mmol/TOobnhu41.0-32.0The [facility] Comment on above:Performed By: #### INFLUAB #### [facility] [address] [place] [address] Dr. Nicky SimmonsCreatinine [Mass/Vol]0.86 mg/dLNormal0.55-1.02The [facility] CenterComment on above:Performed By: #### INFLUAB #### [facility] [address] [place] [address] Dr. Nicky GaxiolaGFR-AF BRUNEIAN>60Normal>=60The [facility] CenterComment on above:Performed By: #### INFLUAB #### [facility] [address] [place] [address] Dr. Nicky GaxiolaGFR-NON AF BRUNEIAN>60Normal>=60The [facility] CenterComment on above:Performed By: #### INFLUAB #### [facility] [address] [place] [address] Dr. Nicky SimmonsGlucose [Mass/Vol]113 mg/dLCritically xupg48-696Bcd [facility] CenterComment on above:Performed By: #### INFLUAB #### [facility] [address] [place] [address] Dr. Nicky SimmonsPotassium [Moles/Vol]3.6 mmol/LNormal3.5-5.1[facility] Comment on above:Performed By: #### INFLUAB #### [facility] [address] [address] [address] Nicky SimmonsSodium [Moles/Vol]137 mmol/QNrcoza822-125Xvh [facility] Comment on above:Performed By: #### INFLUAB #### [facility] [address] [place] [address] Dr. Nicky SimmonsUrea nitrogen [Mass/Vol]9.0 mg/dLNormal7.0-18.0The [facility] CenterComment on above:Performed By: #### INFLUAB #### [facility] [address] [place] [address] Dr. Nicky SimmonsUrea nitrogen/Creatinine [Mass ratio]10.5 mg/mgNoOhioHealth O'Bleness HospitalComment on above:Performed By: #### INFLUAB #### [facility] [address] [place] [address] Dr. Nicky SimmonsXR CHEST 1 Von 19-00-8657JC CHEST 1 VCHEST X-RAY, 1 VIEW HISTORY: Cough. COMPARISON: 05/17/2022. FINDINGS: The heart, angel, and mediastinum are unremarkable. The lungs are grossly clear. There are no pleural effusions. There is no pneumothorax. IMPRESSION: No evidence of acute cardiopulmonary disease. Electronically authenticated by: ESTHER MARY Date: 2022-09-06 18:22[facility] CenterCOVID-19 Positive/NegativeOrdered By: Christopher Mendoza on [id number]-CoV-2 (COVID-19) N gene GOKUL+probe Ql (Resp)NegativeNegative [facility] HospitalComment on above:Testing for SARS-CoV-2 by RT- PCRThis test was developed and its performance characteristics determined by [employer] ([employer]) and validated at the [facility]. This test has not been FDA [...] unless the authorization is terminated or revoked sooner.GROUP A STREP CULTUREon 05-17-2022. pyogenes Ag Ql (Unsp spec) Culture Observations: NEGATIVE FOR GROUP A STREPTOCOCCUS.NormalThe [facility] CenterComment on above: Performed By: #### SSCRN, GRASTCX #### [facility] [address] [place] [address] Dr. Nicky SimmonsINFLUEHAN A AND B AGon 95-43-3771KRVTDYVJP A AGNegativeNormal NEGATIVE SEE COMMENTThe [facility] CenterComment on above:Performed By: #### CBC #### [facility] [address] [place] [address] Dr. Nicky Kerr AGNegativeNormalNEGATIVE SEE COMMENTThe [facility] CenterComment on above:Performed By: #### CBC #### [facility] [address] [place] [address] Dr. Nicky SimmonsINTERNAL CONTROLSWithin Normal LimitsNormalWithin Normal Limits The [facility] CenterComment on above:Performed By: #### CBC #### [facility] [address] [place] [address] Dr. Nicky SimmonsRESPIRATORY PANEL PLUSon 24-23-9993OxuzmhomomWhe detectedNormal NOT DETECTEDThe [facility] CenterComment on above:Performed By: #### RSPLUS ####[facility] [address] [place] [address]Dr. Nicky Jordan ParapertusisNot detectedNormalNOT DETECTEDThe [facility] Comment on above:Performed By: #### RSPLUS ####[facility] [address]xc[address]odvj[address] [place] [address]Dr. Nicky SimmonsB. PertussisNot detected NormalNOT DETECTEDThe [facility] CenterComment on above:Performed By: #### RSPLUS ####[facility] Qhsmubdncb[address] [place], [place] [address]Dr. Nicky SimmonsChlamydia PneumoniaeNot detectedNormalNOT DETECTEDThe [facility] CenterComment on above:Performed By: #### RSPLUS ####[facility] [address]my[address] [place] [address]Dr. Nicky Simmons Coronavirus 229ENot detectedNormalNOT DETECTEDThe [facility] CenterComment on above:Performed By: #### RSPLUS ####[facility] Qfjhftgzsl[address] [place], [place] [address]Dr. Nicky SimmonsCoronavirus RTO9Zax detectedNormalNOT DETECTEDThe [facility] CenterComment on above:Performed By: #### RSPLUS ####[facility] Duhopzvcao[address] [place], [place] [address]Dr. Nicky SimmonsCoronavirus LF15Shw detectedNormalNOT DETECTEDThe [facility] Comment on above:Performed By: #### RSPLUS ####[facility] Yuswuukjci[address] [place], [place] [address]Dr. Nicky SimmonsCoronavirus TJ09Xpg detected NormalNOT DETECTEDThe [facility] CenterComcorewell health [facility] on above:Performed By: #### RSPLUS ####[facility] Crihclrmbx[address] [place], [place] [address]Dr. Nicky SimmonsInfluenza A H1 2009Not detectedNormalNOT DETECTEDThe [facility] CenterComcorewell health greenville hospital on above:Performed By: #### RSPLUS ####[facility] Cqojshrdub[address] [place], [place] [address]Dr. Nicky Simmons Influenza A H3Not detectedNormalNOT DETECTEDThe [facility] CenterComment on above:Performed By: #### RSPLUS ####[facility] Rqvrapmwui[address] [place], [place] [address]Dr. Nicky SimmonsInfluenza BNot detectedNormalNOT DETECTEDThe [facility] CenterComcorewell health green[facility] hospital on above:Performed By: #### RSPLUS ####[facility] Kjsedvchbc[address] [place], [place] [address]Dr. Nicky SimmonsMetapneumovirusNot detectedNormalNOT DETECTEDThe [facility] Comment on above:Performed By: #### RSPLUS ####[facility] Mqsqgwghjj[address] [place], [place] [address]Dr. Nicky SimmonsMycoplas. PneumoniaeNot detectedNormalNOT DETECTEDThe [facility] CenterComment on above:Performed By: #### RSPLUS ####[facility] Zryjgzdeyt364[address] [place], [place] [address]Dr. Nicky ChangParainfluenza 1Not detectedNormalNOT DETECTEDThe [facility] CenterComment on above:Performed By: #### RSPLUS ####[facility] Bjijtfqviy[address] [place], [place] [address]Dr. Nicky SimmonsParainfluenza 2Not detectedNormalNOT DETECTEDThe [facility] CenterComment on above:Performed By: #### RSPLUS ####[facility] Brnsmgbrsl[address] [place], [place] [address]Dr. Nicky SimmonsParainfluenza 3Not detectedNormalNOT DETECTEDThe [facility] CenterComment on above:Performed By: #### RSPLUS ####[facility] Cohzjnywzq[address] [place], [place] [address]Dr. Nicky Simmons Parainfluenza 4Not detectedNormalNOT DETECTEDThe [facility] CenterComment on above:Performed By: #### RSPLUS ####[facility] Yjspaxqcfx[address] [place], [place] [address]Dr. Nicky SimmonsRhino/EnterovirusDetectedAbnormalNOT DETECTEDThe [facility] CenterComment on above:Performed By: #### RSPLUS ####[facility] Zgwsdflpih[address] [place], [place] [address]Dr. Nicky Pandya Header 1RESPIRATORY PANEL: VIRUSESOhioHealth Grant Medical Center Comment on above:Performed By: #### RSPLUS ####[facility] Dzurwjilkk[address] [place], [place] [address]Dr. Nicky Pandya Header 2RESPIRATORY PANEL: BACTERIAOhioHealth Grant Medical CenterComment on above:Performed By: #### RSPLUS ####[facility] [address]en[address] [place] [address]Dr. Nicky PittVNot detectedNormalNOT DETECTEDThe [facility] Comment on above:Performed By: #### RSPLUS ####[facility] [address] [place] [address]Dr. Nicky Felder-CoV-2 (COVID-19) RNA GOKUL+probe Ql (Unsp spec)Not detectedNormalNOT DETECTEDThe [facility] Comment on above:Performed By: #### RSPLUS ####[facility] Rx[address]fsjalhx[address] [place] [address]Dr. Nicky Keita Comment: When diagnostic testing is negative, the possibility of a false negative should be c onsidered in the context of a patient's recent [...] for this test is supported by the [employer] of Health and Human Service's declaration that circumstances exist to justify the emergency use of in vitro diagnostics for the detection and/or diagnosis of the virus that causes COVID-19. This EUA will remain in effect for the duration of the COVID-19 declaration justifying emergency of IVDs, unless it is terminated or revoked by the FDA (after which the test may no longer be used).Performed By: #### INFLUAB #### [facility] [address] [address] [address] Nicky SimmonsSTREPT SCREENon 22-60-5092EHKSE SCREEN ANegativeNormalNEGATIVEThe [facility] CenterComment on above:Performed By: #### SSCRN, GRASTCX #### [facility] [address] [address] [address] Nicky SimmonsXR CHEST 1 Von 59-03-6332HI CHEST 1 VEXAMINATION: XR CHEST 1 V HISTORY: COUGH , nausea, congestion [...] Electronically authenticated by: LOUIE LIRIANO Date: 2022-05-17 15:42NoOhio[facility] AUTO DIFFon 56-06-9203QCVQ #0.1 103/ulNormal0.0-0.1The [facility] CenterComment on above:Performed By: #### CBC #### [facility] [address] [place] [address] Dr. Nicky SimmonsBasophils/100 WBC (Bld)0.5 %Normal0.2-2.0[facility] Comment on above:Performed By: #### CBC #### [facility] [address] [address] [address] Nicky Alexander #0.2 103/ulNormal0.0-0.7The [facility] CenterComment on above: Performed By: #### CBC #### [facility] [address] [place] [address] Dr. Nicky Gaxiolaosinophils/100 WBC (Bld)2.1 %Normal0.9-7.0The [facility] Comment on above:Performed By: #### CBC #### [facility] [address] [address] [address] Nicky Gaxiolarythrocyte distribution width (RBC) [Ratio]13.0 %Jhwoei77.0-15.0 The [facility] CenterComment on above:Performed By: #### CBC #### [facility] [address] [place] [address] Dr. Nicky SimmonsHematocrit (Bld) [Volume fraction]41.7 %Zmehvu78.0-48.0The [facility] CenterComment on above:Performed By: #### CBC #### [facility] [address] [address] [address] Nicky SimmonsHemoglobin (Bld) [Mass/Vol]13.5 g/lBInzhrh87.0-16.0The [facility] CenterComment on above:Performed By: #### CBC #### [facility] [address] [address] [address] Nicky Farooq #0.06 10e3/ulCritically high0.00-0.03The [facility] Comment on above:Performed By: #### CBC #### [facility] [address] [place] [address] Dr. Nicky Farooq %0.6 %Critically high0.0-0.5The [facility] CenterComment on above:Performed By: #### CBC #### [facility] [address] [place] [address] Dr. Nicky Martinez #2.4 103/ulNormal1.2-3.8The [facility] CenterComment on above:Performed By: #### CBC #### [facility] [address] [place] [address] Dr. Nicky Sheppardhocytes/100 WBC (Bld)23.1 %Qkdicw33.5-60.0The [facility] CenterComment on above:Performed By: #### CBC #### [facility] [address] [place] [address] Dr. Nicky HajiUAL DIFF REQNONormalThe [facility] CenterComment on above: Performed By: #### CBC #### [facility] [address] [place] [address] Dr. Nicky Beltran (RBC) [Entitic mass]29.2 wtZaklvx62.7-34.0The [facility] CenterComment on above:Performed By: #### CBC #### [facility] [address] [place] [address] Dr. Nicky Beltran (RBC) [Mass/Vol]32.4 g/lONnzrsn88.9-35.2The [facility] CenterComment on above:Performed By: #### CBC #### [facility] [address] [place] [address] Dr. Nicky BeltranV (RBC) [Entitic vol]90.1 gSPgsmpl18.0-99.0The [facility] Hospitalment on above:Performed By: #### CBC #### [facility] [address] [place] [address] Dr. Nicky Alva #0.6 103/ulNormal0.3-0.8The [facility] CenterComment on above:Performed By: #### CBC #### [facility] [address] [place] [address] Dr. Nicky Merinoocytes/100 WBC (Bld)5.6 %Normal1.7-12.0The [facility] Comment on above:Performed By: #### CBC #### [facility] [address] [place] [address] Dr. Nicky Akhtar #7.2 103/ulCritically high1.4-6.5The [facility] Comment on above:Performed By: #### CBC #### [facility] [address] [place] [address] Dr. Nicky Ramirezutrophils/100 WBC (Bld)68.1 %Bvlsfq07.0-75.0The [facility] CenterComment on above:Performed By: #### CBC #### [facility] [address] [place] [address] Dr. Nicky Lundberglet mean volume (Bld) [Entitic vol]9.6 fLNormal9.5-13.5The [facility] CenterComment on above:Performed By: #### CBC #### [facility] [address] [place] [address] Dr. Nicky SimmonsPLT339 103/vdVezrbh047-763Tzu [facility] CenterComment on above: Performed By: #### CBC #### [facility] [address] [place] [address] Dr. Nicky SimmonsRBC4.63 106/ulNormal4.20-5.40The [facility] CenterComment on above:Performed By: #### CBC #### [facility] [address] [place], [place] [address] Dr. Nicky SimmonsWBC10.6 103/ulNormal4.0-11.0The [facility] Hospitalment on above:Performed By: #### CBC #### [facility] [address] [address] [address] Nicky SimmonsPREG HCG QUALon 50-79-6776FLIQTWJCK, QUALNegativeNormalNEGATIVE The [facility] CenterComment on above:Performed By: #### PREG ####[facility] [address] [place] [id number]. Nicky Simmons Covid-19 PCR (CVDTBH)on 26-99-7666RGIT-CoV-2 (COVID-19) RNA GOKUL+probe Ql (Unsp spec)Not detectedNormalNOT DETECTEDThe [facility] on above:Result Comment: This test is not yet approved or cleared by the [place] FDA. When there are no FDA-approved or cleared tests available, and other criteria are met, FDA can make tests available under an emergency access mechanism called an Emergency Use Authorization (EUA). The EUA for this test is supported by the [place] of Health and Human Service's (HHS's) declaration [...] of clinical signs and symptoms consistent with SARS-CoV-2.Performed By: #### CVDTBH ####[facility] [address] [place] [id number] MorrisonC AUTO DIFF on 90-66-3790BDBF #0.0 103/ulNormal0.0-0.1The [facility] Hospitalment on above: Performed By: #### INFLUAB #### [facility] [address] [address] [address] Nicky SimmonsBasophils/100 WBC (Bld)0.4 %Normal0.2-2.0The [facility] Comment on above:Performed By: #### INFLUAB #### [facility] [address] [place] [address] Dr. Nicky Alexander #0.4 103/ulNormal0.0-0.7The [facility] CenterComment on above: Performed By: #### INFLUAB #### [facility] [address] [place] [address] Dr. Nicky Gaxiolaosinophils/100 WBC (Bld)3.3 %Normal0.9-7.0The [facility] Comment on above:Performed By: #### INFLUAB #### [facility] [address] [place] [address] Dr. Nicky Gaxiolarythrocyte distribution width (RBC) [Ratio]12.9 %Lusvvi23.0-15.0 The [facility] CenterComment on above:Performed By: #### INFLUAB #### [facility] [facility] [address] [place] [address] Dr. Nicky SimmonsHematocrit (Bld) [Volume fraction]41.7 %Quavfr58.0-48.0The [facility] CenterComment on above:Performed By: #### INFLUAB #### [facility] [address] [place] [address] Dr. Nicky SimmonsHemoglobin (Bld) [Mass/Vol]13.7 g/iHLingcr32.0-16.0The [facility] CenterComment on above:Performed By: #### INFLUAB #### [facility] [address] [place] [address] Dr. Nicky Farooq #0.04 10e3/ulCritically high0.00-0.03The [facility] Comment on above:Performed By: #### INFLUAB #### [facility] [address] [place] [address] Dr. Nicky Farooq %0.4 %Normal0.0-0.5The [facility] CenterComment on above: Performed By: #### INFLUAB #### [facility] [address] [place] [address] Dr. Nicky Martinez #2.5 103/ulNormal1.2-3.8The [facility] CenterComment on above:Performed By: #### INFLUAB #### [facility] [address] [place] [address] Dr. Nicky Sheppardhocytes/100 WBC (Bld)22.3 %Uqonsd46.5-60.0The [facility] CenterComment on above:Performed By: #### INFLUAB #### [facility] [address] [place] [address] Dr. Nicky Tolbert DIFF REQNONormalThe [facility] CenterComment on above: Performed By: #### INFLUAB #### [facility] [address] [place] [address] Dr. Nicky Esteban (RBC) [Entitic mass]29.3 syEjbwzh65.7-34.0The [facility] CenterComment on above:Performed By: #### INFLUAB #### [facility] [address] [place] [address] Dr. Nicky Beltran (RBC) [Mass/Vol]32.9 g/dVKwxuij11.9-35.2The [facility] on above:Performed By: #### INFLUAB #### [facility] [address] [place] [address] Dr. Nicky Beltran (RBC) [Entitic vol]89.1 uBCjtlfx55.0-99.0The [facility] CenterComcorewell health [facility] on above:Performed By: #### INFLUAB #### [facility] [address] [place] [address] Dr. Nicky Alva #0.6 103/ulNormal0.3-0.8The [facility] on above:Performed By: #### INFLUAB #### [facility] [address] [place] [address] Dr. Nicky Merinoocytes/100 WBC (Bld)5.4 %Normal1.7-12.0The [facility] Comment on above:Performed By: #### INFLUAB #### [facility] [address] [place] [address] Dr. Nicky Akhtar #7.6 103/ulCritically high1.4-6.5The [facility] Comment on above:Performed By: #### INFLUAB #### [facility] [address] [place] [address] Dr. Nicky Ramirezutrophils/100 WBC (Bld)68.2 %Dclwpr31.0-75.0The [facility] CenterComment on above:Performed By: #### INFLUAB #### [facility] [address] [place] [address] Dr. Nicky Vidales mean volume (Bld) [Entitic vol]9.2 fLCritically low 9.5-13.5The [facility] CenterComment on above:Performed By: #### INFLUAB #### [facility] [address] [place] [address] Dr. Nicky SimmonsPLT387 103/tpBsswbb952-290Lus [facility] CenterComment on above: Performed By: #### INFLUAB #### [facility] [address] [place] [address] Dr. Nicky BishopC4.68 106/ulNormal4.20-5.40The [facility] CenterComment on above:Performed By: #### INFLUAB #### [facility] [address] [place] [address] Dr. Nicky HeatonBC11.1 103/ulCritically high4.0-11.0The [facility] CenterComment on above:Performed By: #### INFLUAB #### [facility] [address] [place] [address] Dr. Nicky Pride 45-07-8636TOC0.8 mg/dLCritically high<=1.0The [facility] CenterComment on above:Performed By: #### INFLUAB #### [facility] [address] [place] [address] Dr. Nicky MelchorF CHEM 8 (BAS METB)on 35-62-0392Ygofn gap [Moles/Vol]12.2 mmol/LNormalKettering Health SpringfieldComment on above:Performed By: #### INFLUAB #### [facility] [address] [place] [address] Dr. Nicky SimmonsCalcium [Mass/Vol]8.8 mg/dLNormal8.5-10.1The [facility] Comment on above:Performed By: #### INFLUAB #### [facility] [address] [address] [address] Nicky SimmonsChloride [Moles/Vol]107 mmol/NWkqnww73-169Izb [facility] Comment on above:Performed By: #### INFLUAB #### [facility] [address] [place] [address] Dr. Nicky SimmonsCO2 [Moles/Vol]23.8 mmol/BJiugfu21.0-32.0[facility] Comment on above:Performed By: #### INFLUAB #### [facility] [address] [place] [address] Dr. Nicky SimmonsCreatinine [Mass/Vol]0.78 mg/dLNormal0.55-1.02The [facility] CenterComment on above:Performed By: #### INFLUAB #### [facility] [address] [place] [address] Dr. Saunders ChangEGFR-AF BRUNEIAN>60Normal>=60The [facility] CenterComment on above:Performed By: #### INFLUAB #### [facility] [address] [place] [address] Dr. Nicky GaxiolaGFR-NON AF BRUNEIAN>60Normal>=60The [facility] CenterComment on above:Performed By: #### INFLUAB #### [facility] [address] [place] [address] Dr. Nicky SimmosnGlucose [Mass/Vol]121 mg/dLCritically crpe82-756Fse [facility] CenterComment on above:Performed By: #### INFLUAB #### [facility] [address] [place] [address] Dr. Nicky SimmonsPotassium [Moles/Vol]4.0 mmol/LNormal3.5-5.1The [facility] Comment on above:Performed By: #### INFLUAB #### [facility] [address] [address] [address] Nicky SimmonsSodium [Moles/Vol]139 mmol/RJvtdzk648-495Xce [facility] Comment on above:Performed By: #### INFLUAB #### [facility] [address] [address] [address] Nicky SimmonsUrea nitrogen [Mass/Vol]11.0 mg/dLNormal7.0-18.0The [facility] CenterComment on above:Performed By: #### INFLUAB #### [facility] [address] [place] [address] Dr. Nicky SimmonsUrea nitrogen/Creatinine [Mass ratio]14.1 mg/mgNoOhioHealth O'Bleness HospitalComment on above:Performed By: #### INFLUAB #### [facility] [address] [place] [address] Dr. Nicky Moe RATE WESTERGRENon [id number] RATE36 mm/hrCritically high <=20The [facility] CenterComment on above:Performed By: #### CBC #### [facility] [address] [place] [address] Dr. Nicky SimmonsXR KNEE LT 4V or >on 33-68-6028ND KNEE LT 4V or >EXAM: XR KNEE LT 4V or > HISTORY: pain COMPARISON: None. TECHNIQUE: Frontal, lateral, and oblique views of the left knee. FINDINGS: Mineralization: Within normal limits. Bones: No acute fractures or dislocations. Joints: Normal joint spacing. Joint effusion. Soft Tissues: Unremarkable. IMPRESSION: Joint effusion without acute osseous abnormality. Electronically authenticated by: MARIAM SANCHEZ Date: 2022-02-27 22:00[facility] AUTO DIFFon [id number] #0.1 103/ulNormal0.0-0.1The [facility] CenterComment on above:Performed By: #### CBC #### [facility] [address] [address] [address] Nicky SimmonsBasophils/100 WBC (Bld)0.6 %Normal0.2-2.0The [facility] Comment on above:Performed By: #### CBC #### [facility] [address] [place] [address] Dr. Nicky Alexander #0.3 103/ulNormal0.0-0.7The [facility] CenterComment on above: Performed By: #### CBC #### [facility] [address] [place] [address] Dr. Nicky Gaxiolaosinophils/100 WBC (Bld)2.5 %Normal0.9-7.0The [facility] Comment on above:Performed By: #### CBC #### [facility] [address] [place] [address] Dr. Nicky Gaxiolarythrocyte distribution width (RBC) [Ratio]12.8 %Uuesth11.0-15.0 The [facility] CenterComment on above:Performed By: #### CBC #### [facility] [address] [place] [address] Dr. Nicky SimmonsHematocrit (Bld) [Volume fraction]39.5 %Vujukl69.0-48.0The [facility] CenterComment on above:Performed By: #### CBC #### [facility] [address] [place] [address] Dr. Nicky SimmonsHemoglobin (Bld) [Mass/Vol]13.0 g/kUBduucr72.0-16.0The [facility] CenterComment on above:Performed By: #### CBC #### [facility] [address] [place] [address] Dr. Nicky Farooq #0.04 10e3/ulCritically high0.00-0.03The [facility] Comment on above:Performed By: #### CBC #### [facility] [address] [place] [address] Dr. Nicky Farooq %0.3 %Normal0.0-0.5The [facility] CenterComment on above: Performed By: #### CBC #### [facility] [address] [address] [address] Nicky Martinez #3.0 103/ulNormal1.2-3.8The [facility] CenterComment on above:Performed By: #### CBC #### [facility] [address] [place] [address] Dr. Nicky Sheppardhocytes/100 WBC (Bld)24.4 %Hqgpza87.5-60.0The [facility] CenterComment on above:Performed By: #### CBC #### [facility] [address] [place] [address] Dr. Nicky Tolbert DIFF REQNONormalThe [facility] CenterComment on above: Performed By: #### CBC #### [facility] [address] [place] [address] Dr. Nicky eBltran (RBC) [Entitic mass]29.4 wfJaoknc72.7-34.0The [facility] CenterComment on above:Performed By: #### CBC #### [facility] [address] [place] [address] Dr. Nicky Beltran (RBC) [Mass/Vol]32.9 g/tRRocrjl85.9-35.2The [facility] CenterComment on above:Performed By: #### CBC #### [facility] [address] [place] [address] Dr. Nicky Beltran (RBC) [Entitic vol]89.4 jBGwjdsb35.0-99.0The [facility] CenterComment on above:Performed By: #### CBC #### [facility] [address] [place] [address] Dr. Nicky Alva #0.7 103/ulNormal0.3-0.8The [facility] CenterComment on above:Performed By: #### CBC #### [facility] [address] [place] [address] Dr. Nicky Merinoocytes/100 WBC (Bld)6.0 %Normal1.7-12.0The [facility] Comment on above:Performed By: #### CBC #### [facility] [address] [place] [address] Dr. Nicky Akhtar #8.0 103/ulCritically high1.4-6.5ThFort [facility] Hospital Comment on above:Performed By: #### CBC #### [facility] [address] [place] [address] Dr. Nicky Ramirezutrophils/100 WBC (Bld)66.2 %Pixjos39.0-75.0The [facility] CenterComment on above:Performed By: #### CBC #### [facility] [address] [place] [address] Dr. Nicky Lundberglet mean volume (Bld) [Entitic vol]9.1 fLCritically low 9.5-13.5The [facility] CenterComment on above:Performed By: #### CBC #### [facility] [address] [place] [address] Dr. Nicky SimmonsPLT367 103/kmZrtkjm015-910Gxs [facility] CenterComment on above: Performed By: #### CBC #### [facility] [address] [place] [address] Dr. Nicky SimmonsRBC4.42 106/ulNormal4.20-5.40The [facility] CenterComment on above:Performed By: #### CBC #### [facility] [address] [place] [address] Dr. Nicky SimmonsWBC12.1 103/ulCritically high4.0-11.0The [facility] CenterComment on above:Performed By: #### CBC #### [facility] [address] [place] [address] Dr. Saunders ChangER URINE PROFILEon 26-03-8324Lffhcggsk Ql (U)NegativeNormal NEGATIVEThe [facility] CenterComment on above:Performed By: #### INFLUAB #### [facility] [address] [place] [address] Dr. Nicky SimmonsClarity (U)CLEARNormalCLEARThe [facility] CenterComment on above: Performed By: #### INFLUAB #### [facility] [address] [address] [address] Nicky Hardenlor (U)REDAbnormalYELLOWKettering Health SpringfieldComment on above: Performed By: #### INFLUAB #### [facility] [address] [address] [address] Nicky Keita micrscopic examination will be performed if indicated. NormalThe [facility]shear HospitalComment on above:Performed By: #### INFLUAB #### [facility] [address] [address] [address] Nicky SimmonsGlucose Ql (U)NegativeNormalNEGATIVEKettering Health SpringfieldComment on above:Performed By: #### INFLUAB #### [facility] [address] [place] [address] Dr. Nicky SimmonsHemoglobin Ql (U)LARGEAbnormalNEGATIVEWilson Street Hospital on above:Performed By: #### INFLUAB #### [facility] [address] [place] [address] Dr. Nicky SimmonsKetones Ql (U)NegativeNormalNEGATIVEKettering Health SpringfieldComment on above:Performed By: #### INFLUAB #### [facility] [address] [address] [address] Nicky SimmonsLEUKOCYTESNegativeNormalNEGATIVEKettering Health SpringfieldComment on above:Performed By: #### INFLUAB #### [facility] [address] [address] [address] Nicky SimmonsNitrite Ql (U)NegativeNormalNEGATIVEKettering Health SpringfieldComment on above:Performed By: #### INFLUAB #### [facility] [address] [address] [address] Nicky SimmonspH (U)8.5 [pH]Normal5-9K[facility]tering Health SpringfieldComment on above: Performed By: #### INFLUAB #### [facility] [address] [place] [address] Dr. Nicky SimmonsSPEC GRAVITY1.591Upvjzw2.005-<=1.025K[facility]tering Health SpringfieldComment on above:Performed By: #### INFLUAB #### [facility] [address] [address] [address] Nicky Leblanc PROTEINTRACENormalNEGATIVE/ TRACEThe [facility] CenterComment on above:Performed By: #### INFLUAB #### [facility] [address] [address] [address] Nicky Kay MICRO INDINDICATEDNoKettering Memorial Hospitale [facility] CenterComment on above: Performed By: #### INFLUAB #### [facility] [address] [address] [address] Nicky Philippe Qn (U)0.2 {Yan'U}/dLNormal0.2 - 1.0The [facility] CenterComcorewell health greenville hospital on above:Performed By: #### INFLUAB #### [facility] [address] [address] [address] Nicky Moe RATE WESTERGRENon 66-77-3429AUE RATE30 mm/hrCritically high <=20The [facility] CenterComcorewell health greenville hospital on above:Performed By: #### SEDR ####[facility] [address] [address]. Nicky Ch MICROSCOPIC ONLYon 85-25-8728TWEWVQMJBFKPHCkcepldaWFQC SEENMartin Memorial Hospital on above:Performed By: #### INFLUAB #### [facility] [address] [address] [address] Nicky Hong identified Cx Nom (U)NOT INDICATEDNoOhioHealth O'Bleness HospitalComcorewell health greenville hospital on above:Performed By: #### INFLUAB #### [facility] [address] [address] [address] Nicky SimmonsCASTLYNSEY SEENNormalNONE SEENMartin Memorial Hospital on above:Performed By: #### INFLUAB #### [facility] [address] [address] [address] Nicky Lunaystals LM Nom (Urine sed)NONE SEENNormalNONE SEENKettering Health SpringfieldComcorewell health greenville hospital on above:Performed By: #### INFLUAB #### [facility] [address] [place] [address] Dr. Saunders ChangEpithelial cells LM Ql (Urine sed)RARENormalNONE SEEN /RAREThe [facility] CenterComcorewell health greenville hospital on above:Performed By: #### INFLUAB #### [facility] [address] [place] [address] Dr. Nicky StarksCOUSNONE SEENNormalNONE SEENThe [facility] CenterComment on above:Performed By: #### INFLUAB #### [facility] [address] [place] [address] Dr. Nicky SimmonsYjaadZGW31-425Heghgrlv1-7Cmh [facility] CenterComcorewell health greenville hospital on above: Performed By: #### INFLUAB #### [facility] [address] [place] [address] Dr. Nicky SimmonsWBC2-5AbnormalNONE SEENKettering Health SpringfieldComment on above: Performed By: #### INFLUAB #### [facility] [address] [place] [address] Dr. Nicky Ferrell PELVISon [id number] PELVISEXAMINATION: US PELVIS HISTORY: Lower abdominal pain COMPARISON: [...] Electronically authenticated by: SREE LYLE Date: 2022-02-23 13:53NoOhioHealth O'Bleness HospitalC-Reactive Proteinon [id number] [Mass/Vol]2.8 mg/LNormal 0.0-5.0The [facility] CenterComment on above:Performed By: #### CDP, CRP, CP, TROPI, HCG, LD #### [facility] [address] [place] [address] Front End Software Developer: Christopher Dorsey, DOCRP [Mass/Vol]2.8 mg/L0 - 5 mg/LMKn[facility] Community Hospital- [place], [place]CBC Auto Differentialon [id number] (Bld) [#/Vol]0.00 10*3/uL [facility]- [place], KYBasophils/100 WBC (Bld)0 %0 - 2 %[facility]- [place], [place] Differential TypeNOT REPORTEDKnox Community Hospital- [place], KYEosinophils (Bld) [#/Vol]0.20 10*3/uLKnox Community Hospital- [place], KYEosinophils/100 WBC (Bld)3 %0 - 4 %[facility]- [place], KYErythrocyte distribution width (RBC) [Ratio]13.5 %11.5 - 14.9 %[facility]- [place], KYHematocrit (Bld) [Volume fraction]39.3 %36 - 46 %[facility]- [place], [place] Hemoglobin (Bld) [Mass/Vol]12.9 g/dL12 - 16 g/dLKnox Community Hospital- [place], KYLymphocytes (Bld) [#/Vol]2.00 10*3/uLKnox Community Hospital- [place], KYLymphocytes/100 WBC (Bld)29 %24 - 44 %[facility]- [place], KYMCH (RBC) [Entitic mass]29.3 pg26 - 34 pgKnox Community Hospital- [place], KYMCHC (RBC) [Mass/Vol]32.7 g/dL31 - 37 g/dLKnox Community Hospital- [place], KYMCV (RBC) [Entitic vol]89.6 fL80 - 100 fLKnox Community Hospital- [place], KYMonocytes (Bld) [#/Vol]0.50 10*3/uLKnox Community Hospital- [place], KYMonocytes/100 WBC (Bld)7 %1 - 7 %[facility]- [place], [place] Platelet mean volume (Bld) [Entitic vol]8.3 fL6 - 12 fLKnox Community Hospital- [place], [place] Platelets (Bld) [#/Vol]238 10*3/uLKn[facility] Community Hospital- [place], KYPlatelets (Bld) [#/Vol]NOT REPORTEDKn[facility] Hospital- [place], KYRBC (Bld) [#/Vol]4.39 10*6/uL4 - 5.2 m/uLOhioHealth Pickerington [facility], ORRBC morphology finding Nom (Bld)NOT REPORTEDOhioHealth Pickerington [facility], [place] Segmented neutrophils/100 WBC (Bld)61 %36 - 66 %[facility], SHANIKASegs Absolute4.20[facility], KYWBC (Bld) [#/Vol]NOT REPORTEDper 100 WBCOhioHealth Pickerington [facility] Hospital, ORWBC (Bld) [#/Vol]7.0 10*3/uLOhioHealth Pickerington [facility] Hospital, ORWBC MorphologyNOT REPORTEDOhioHealth Pickering[facility], ORCBC with Diffon [id number]. Basophil0.00 k/uL Normal0.0-0.2[facility] - AndersonComment on above:Performed By: #### CDP, CRP, CP, TROPI, HCG, LD #### [facility] [place] [address] Front End Software Developer: Christopher Dorsey DOAbs.Neutrophil (Seg)4.20 k/uLNormal1.3-9.1 [facility] CenterComment on above:Performed By: #### CDP, CRP, CP, TROPI, HCG, LD #### [facility] [place] [address] Front End Software Developer: Christopher Dorsey DOBasophils/100 WBC (Bld)0 %Normal0-2[facility] - AndersonComment on above:Performed By: #### CDP, CRP, CP, TROPI, HCG, LD #### [facility] [facility] [place] [address] Front End Software Developer: Christopher Dorsey DOEosinophils (Bld) [#/Vol]0.20 10*3/uLNormal 0.0-0.4The [facility] CenterComment on above:Performed By: #### CDP, CRP, CP, TROPI, HCG, LD #### [facility] [address] [place] [address] Front End Software Developer: Christopher Dorsey DOEosinophils/100 WBC (Bld)3 %Normal0-4[facility] on above:Performed By: #### CDP, CRP, CP, TROPI, HCG, LD #### [facility] [address] [place] [address] Front End Software Developer: Christopher Dorsey DOErythrocyte distribution width (RBC) [Ratio] 13.5 %Wrzjoy04.5-14.9The [facility] CenterComcorewell health greenville hospital on above:Performed By: #### CDP, CRP, CP, TROPI, HCG, LD #### [facility] [place] [address] Front End Software Developer: Christopher Dorsey DOHematocrit (Bld) [Volume fraction]39.3 % Zxemqw12-30VrsztThe [facility] Of [facility] Medical CenterComcorewell health greenville hospital on above:Performed By: #### CDP, CRP, CP, TROPI, HCG, LD #### [facility] [place] [address] Front End Software Developer: Christopher Dorsey DOHemoglobin (Bld) [Mass/Vol]12.9 g/dLNormal 12.0-16.0The [facility] CenterComcorewell health greenville hospital on above:Performed By: #### CDP, CRP, CP, TROPI, HCG, LD #### [facility] [place] [address] Front End Software Developer: Christopher Dorsey DOLymphocytes (Bld) [#/Vol]2.00 10*3/uLNormal 1.0-4.8The [facility] CenterComcorewell health greenville hospital on above:Performed By: #### CDP, CRP, CP, TROPI, HCG, LD #### [facility] [place] [address] Front End Software Developer: Fanelly, Christopher, DOLymphocytes/100 WBC (Bld)29 %Iryzeb53-98MsdtjThe University Of [facility] Medical CenterComcorewell health greenville hospital on above:Performed By: #### CDP, CRP, CP, TROPI, HCG, LD #### [facility] [address] [place] [address] Front End Software Developer: Christopher Dorsey DOMCH (RBC) [Entitic mass]29.3 azYbqopm45-39 [facility] on above:Performed By: #### CDP, CRP, CP, TROPI, HCG, LD #### [facility] [address] [place] [address] Front End Software Developer: Christopher Dorsey DOMCHC (RBC) [Mass/Vol]32.7 g/oLFdxddk39-09 [facility] on above:Performed By: #### CDP, CRP, CP, TROPI, HCG, LD #### [facility] [address] [place] [address] Front End Software Developer: Christopher Dorsey DOMCV (RBC) [Entitic vol]89.6 wZQcgcqy60-131 [facility] on above:Performed By: #### CDP, CRP, CP, TROPI, HCG, LD #### [facility] [place] [address] Front End Software Developer: Christopher Dorsey DOMonocytes (Bld) [#/Vol]0.50 10*3/uLNormal 0.1-1.3MWhite Hospital on above:Performed By: #### CDP, CRP, CP, TROPI, HCG, LD #### [facility] [place] [address] Front End Software Developer: Christopher Dorsey DOMonocytes/100 WBC (Bld)7 %Normal1-7The [facility] CenterComcorewell health greenville hospital on above:Performed By: #### CDP, CRP, CP, TROPI, HCG, LD #### [facility] [address] [place] [address] Front End Software Developer: Christopher Dorsey DONeutrophil (Seg)61 %Mbxgms15-62DijoqCleveland Clinic [facility] on above:Performed By: #### CDP, CRP, CP, TROPI, HCG, LD #### [facility] [address] [place] [address] Front End Software Developer: Christopher Dorsey DOPlatelet mean volume (Bld) [Entitic vol]8.3 fLNormal6.0-12.0The [facility] CenterComcorewell health greenville hospital on above:Performed By: #### CDP, CRP, CP, TROPI, HCG, LD #### [facility] [address] [place] [address] Front End Software Developer: Christopher Dorsey DOPlatelets (Bld) [#/Vol]238 10*3/uLNormal 150-450[facility] CenterComcorewell health [facility] on above:Performed By: #### CDP, CRP, CP, TROPI, HCG, LD #### [facility] [address] [place] [address] Front End Software Developer: Christopher Dorsey DORBC (Bld) [#/Vol]4.39 10*6/uLNormal4.0-5.2 [facility] CenterComcorewell health green[facility] hospital on above:Performed By: #### CDP, CRP, CP, TROPI, HCG, LD #### [facility] [address] [place] [address] Front End Software Developer: Christopher Dorsey DOWBC (Bld) [#/Vol]7.0 10*3/uLNormal3.5-11.0 [facility] on above:Performed By: #### CDP, CRP, CP, TROPI, HCG, LD #### [facility] [place] [address] Front End Software Developer: Christopher Dorsey DOAbs.Imm.GranulocyteNOT REPORTEDNormal 0.00-0.30MerAvita Health SystemComcorewell health greenville hospital on above:Performed By: #### CDP, CRP, CP, TROPI, HCG, LD #### [facility] [address] [place] [address]. [place] [address] Front End Software Developer: Christopher Dorsey DOAuto Diff PerformedNOT REPORTEDNormalMercy [facility] Lady [facility] Hospital - AndersonComcorewell health greenville hospital on above:Performed By: #### CDP, CRP, CP, TROPI, HCG, LD #### [facility] [address] [place] [address]. [place] [address] Front End Software Developer: Christopher Dorsey DOImmature granulocytes (Bld) [#/Vol]NOT GDWKZNOCMwnoxx6TsafqThe University Of [facility] CenterComcorewell health [facility] hospital on above:Performed By: #### CDP, CRP, CP, TROPI, HCG, LD #### [facility] [address] [place] [address]. [place] [address] Front End Software Developer: Christopher Dorsey DONRBC AutomatedNOT REPORTEDNormalC[facility] on above:Performed By: #### CDP, CRP, CP, TROPI, HCG, LD #### [facility] [address] [place] [address]. [place] [address] Front End Software Developer: Christopher Dorsey DOPlatelets (Bld) [#/Vol]NOT REPORTEDNormal [facility] on above:Performed By: #### CDP, CRP, CP, TROPI, HCG, LD #### [facility] [address] [place] [address]. [place] [address] Front End Software Developer: Christopher Dorsey DORBC morphology finding Nom (Bld)NOT REPORTED NormalBellevue Hospitalcy [facility] - AndersonComcorewell health [facility] hospital on above:Performed By: #### CDP, CRP, CP, TROPI, HCG, LD #### [facility] [address] [place] [address] Front End Software Developer: Christopher Dorsey DOWBC MorphologyNOT REPORTEDNormalThe University Of Toledo Medical CenterComment on above:Performed By: #### CDP, CRP, CP, TROPI, HCG, LD #### [facility] [address] [place] [address] Front End Software Developer: Christopher Dorsey DOComp Metabolic Profon [id number] Ql (U)<0.15Low0.3-1.2MDayton Osteopathic HospitalComment on above:Performed By: #### CDP, CRP, CP, TROPI, HCG, LD #### [facility] [place] [address] Front End Software Developer: Christopher Dorsey DO(cont.)[facility] Comment on above:Result Comment: Average GFR for 30-39 years old: 107 mL/min/1.73sq m Chronic Kidney Disease: <60 mL/min/1.73sq m Kidney failure: <15 mL/min/1.73sq m eGFR calculated using average adult body mass. Additional eGFR calculator available at: http://www.[employer]multiple_crcl_2012.htmPerformed By: #### CDP, CRP, CP, TROPI, HCG, LD #### [facility] [place] [address] Front End Software Developer: Christopher Dorsey DOAlbumin [Mass/Vol]3.7 g/dLNormal3.5-5.2MDayton Osteopathic HospitalComment on above:Performed By: #### CDP, CRP, CP, TROPI, HCG, LD #### [facility] [address] [place] [address] Front End Software Developer: Christopher Dorsey DOAlkaline Phos67 U/REzmlxq48-170CczfpCleveland Clinic [facility] on above:Performed By: #### CDP, CRP, CP, TROPI, HCG, LD #### [facility] [address] [place] [address] Front End Software Developer: Christopher Dorsey DOALT [Catalytic activity/Vol]12 U/LNormal5-33 [facility] on above:Performed By: #### CDP, CRP, CP, TROPI, HCG, LD #### [facility] [address] [place] [address] Front End Software Developer: Christopher Dorsey DOAnion gap [Moles/Vol]12 mmol/LNormal9-17[facility] on above:Performed By: #### CLAUDIA, CRP, CP, TROPI, HCG, LD #### [facility] [address] [place] [address] Front End Software Developer: Christopher Dorsey DOAST [Catalytic activity/Vol]13 U/LNormal<32 [facility] CenterComcorewell health green[facility] hospital on above:Performed By: #### CLAUDIA, CRP, CP, TROPI, HCG, LD #### [facility] [address] [place] [address] Front End Software Developer: Christopher Dorsey DOCalcium [Mass/Vol]8.7 mg/dLNormal8.6-10.4 [facility] on above:Performed By: #### CDP, CRP, CP, TROPI, HCG, LD #### [facility] [address] [place] [address] Front End Software Developer: Christopher Dorsey DOChloride [Moles/Vol]110 mmol/ZNows09-953LywviCleveland Clinic [facility] on above:Performed By: #### CDP, CRP, CP, TROPI, HCG, LD #### [facility] [address] [place] [address] Front End Software Developer: Christopher Dorsey, DOCO2 [Moles/Vol]18 mmol/MXop26-23OblguThe University Of Toledo Medical CenterComment on above:Performed By: #### CDP, CRP, CP, TROPI, HCG, LD #### [facility] [address] [place] [address] Front End Software Developer: Christopher Dorsey DOCreatinine [Mass/Vol]0.62 mg/dLNormal 0.50-0.90The [facility] CenterComment on above:Performed By: #### CDP, CRP, CP, TROPI, HCG, LD #### [facility] [place] [address] Front End Software Developer: Christopher Dorsey, DOGFR, Amer>60Normal>60[facility] - AndersonComcorewell health [facility] hospital on above:Performed By: #### CDP, CRP, CP, TROPI, HCG, LD #### [facility] [place] [address] Front End Software Developer: Christopher Dorsey DOGFR,non Amer>60Normal>60MerAvita Health SystemComment on above:Performed By: #### CDP, CRP, CP, TROPI, HCG, LD #### [facility] [address] [place] [address] Front End Software Developer: Christopher Dorsey DOGlucose [Mass/Vol]84 mg/cRImzvzq33-08Fqedk [facility] - AndersonComcorewell health [facility] hospital on above:Performed By: #### CDP, CRP, CP, TROPI, HCG, LD #### [facility] [address] [place] [address]. [place] [address] Front End Software Developer: Christopher Dorsey, DOPotassium [Moles/Vol]3.9 mmol/LNormal3.7-5.3 [facility] CenterComment on above:Performed By: #### CDP, CRP, CP, TROPI, HCG, LD #### [facility] [address] [place] [address] Front End Software Developer: Christopher Dorsey, DOProtein [Mass/Vol]6.3 g/dLLow6.4-8.3MDayton Osteopathic HospitalComment on above:Performed By: #### CDP, CRP, CP, TROPI, HCG, LD #### [facility] [address] [place] [address] Front End Software Developer: Christopher Dorsey, DOSodium [Moles/Vol]140 mmol/NAivihk202-662 [facility] CenterComcorewell health greenville hospital on above:Performed By: #### CDP, CRP, CP, TROPI, HCG, LD #### [facility] [place] [address] Front End Software Developer: Christopher Dorsey DOUrea nitrogen [Mass/Vol]11 mg/dLNormal6-20 [facility] CenterComcorewell health green[facility] hospital on above:Performed By: #### CDP, CRP, CP, TROPI, HCG, LD #### [facility] [place] [address] Front End Software Developer: Christopher Dorsey DOAlbumin/Globulin [Mass ratio]NOT REPORTED Normal1.0-2.5[facility] CenterComcorewell health green[facility] hospital on above:Performed By: #### CDP, CRP, CP, TROPI, HCG, LD #### [facility] [place] [address] Front End Software Developer: Christopher Dorsey DOBUN/CRE RatioNOT REPORTEDNormal9-20[facility] CenterComcorewell health [facility] hospital on above:Performed By: #### CDP, CRP, CP, TROPI, HCG, LD #### [facility] [place] [address] Front End Software Developer: Christopher Dorsey, DOStaging:NOT REPORTEDNormalMercy Amery HospitalComment on above:Performed By: #### CDP, CRP, CP, TROPI, HCG, LD #### [facility] [address] [place] [address] Front End Software Developer: Christopher Dorsey DOComprehensive Metabolic Panelon 03-01-2020 Albumin [Mass/Vol]3.7 g/dL3.5 - 5.2 g/dLKnox Community Hospital- [place], KYAlbumin/Globulin [Mass ratio]NOT REPORTEDOhiohealth [facility] [place], KYALP [Catalytic activity/Vol]67 U/L35 - 104 U/LMerc Health- [place], KYALT [Catalytic activity/Vol]12 U/L5 - 33 U/LMcleveland clinic euclid hospitaly Health- [place], KYAnion gap [Moles/Vol]12 mmol/L9 - 17 mmol/LMercy Health- [place], KYAST [Catalytic activity/Vol]13 U/L<32MerAstria Regional Medical Center- [place], KYBilirubin Ql (U)<0.15Low 0.3 - 1.2 mg/dLKnox Community Hospital- [place], KYBun/Cre RatioNOT REPORTEDMerAstria Regional Medical Center- [place], [place] Calcium [Mass/Vol]8.7 mg/dL8.6 - 10.4 mg/dLKnox Community Hospital- [place], KYChloride [Moles/Vol]110 mmol/LHigh98 - 107 mmol/LMcleveland clinic euclid hospitaly Health- [place], KYCO2 [Moles/Vol]18 mmol/LLow20 - 31 mmol/LMercy Health- [place], KYCreatinine [Mass/Vol]0.62 mg/dL0.5 - 0.9 mg/dLKnox Community Hospital- [place], KYGFR >60>60 mL/minKnox Community Hospital- [place], KYGFR Non->60>60 mL/minKnox Community Hospital- [place], KYGFR/1.73 sq M predicted among non-blacks MDRD (S/P/Bld) [Vol rate/Area]NOT REPORTEDOhiohealth [facility] [place], KYGFR/1.73 sq M predicted among non-blacks MDRD (S/P/Bld) [Vol rate/Area][facility], KYComment on above:Average GFR for 30-39 years old: 107 mL/min/1.73sq m Chronic Kidney Disease: <60 mL/min/1.73sq m Kidney failure: <15 mL/min/1.73sq m eGFR calculated using average adult body mass. Additional eGFR calculator available at: http://www.[employer]/multiple_crcl_2012.htm Glucose [Mass/Vol]84 mg/dL70 - 99 mg/dLOhioHealth Pickerington [facility], ORInterpretation and review of laboratory resultsAbnoCleveland Clinic [facility], KYPotassium [Moles/Vol]3.9 mmol/L3.7 - 5.3 mmol/LMOhio Valley Surgical Hospital, KYProtein [Mass/Vol]6.3 g/dLLow6.4 - 8.3 g/dLOhioHealth [facility], KYSodium [Moles/Vol]140 mmol/L135 - 144 mmol/LMOhio Valley Surgical Hospital, KYUrea nitrogen [Mass/Vol]11 mg/dL6 - 20 mg/dLOhioHealth Pickerington [facility], [place] HCG Screen, Bloodon [id number] QnNegativeNoMercy Health [facility] Comment on above:Result Comment: Specimens with hCG levels near the threshold of the test (25 mIU/mL) may give a negative or indeterminate result. In such cases, another test should be performed with a new specimen in 48-72 hours. If early is suspected clinically in this setting, correlation with quantitative serum b-hCG level is suggested.Performed By: #### CDP, CRP, CP, TROPI, HCG, LD #### [facility] [address] [place], [place] [address] Front End Software Developer: Christopher Dorsey DOhCG QualNegativeNEGATIVEOhioHealth [facility]erington [facility], [place] Comment on above:Specimens with hCG levels near the threshold of the test (25 mIU/mL) may give a negative or indeterminate result. In such cases, another test should be performed with a new specimen in 48-72 hours. If early is suspected clinically in this setting, correlation with quantitative serum b-hCG level is suggested. LACTATE DEHYDROGENASEon [id number] and review of laboratory resultsAbUniversity Hospitals [facility], GAEX497 U/SGdz479 - 214 U/LMOhio Valley Surgical Hospital, [place] Lactate Dehydrogenaseon [id number] [Catalytic activity/Vol]101 U/OGrd705-610 [facility] on above:Performed By: #### CDP, CRP, CP, TROPI, HCG, LD #### [facility] [address] [place] [address] Front End Software Developer: Christopher Dorsey DOOtheron [id number] granulocytes (Bld) [#/Vol]NOT REPORTEDKake, KYTroponinon 45-33-2311Wlyeydpq I.cardiac [Mass/Vol]ng/mLNormal0-14[facility] CenterComcorewell health green[facility] hospital on above:Result Comment: High Sensitivity Troponin values cannot be compared with other Troponin methodologies. Patients with high levels of Biotin oral intake (i.e >5mg/day) may have falsely decreased Troponin levels. Samples collected within 8 hours of biotin intake may require additional information for diagnosis.Performed By: #### TROPI #### [facility] [address] [place] [address] Front End Software Developer: Chritsopher Dorsey DOTroponin I.cardiac [Mass/Vol]NOT REPORTED Normal<0.03[facility] CenterComcorewell health [facility] hospital on above:Performed By: #### TROPI #### [facility] [address] [place] [address] Front End Software Developer: Christopher Dorsey DOTroponin I.cardiac [Mass/Vol]ng/mLNormal0-14 [facility] on above:Result Comment: High Sensitivity Troponin values cannot be compared with other Troponin methodologies. Patients with high levels of Biotin oral intake (i.e >5mg/day) may have falsely decreased Troponin levels. Samples collected within 8 hours of biotin intake may require additional information for diagnosis.Performed By: #### CDP, CRP, CP, TROPI, HCG, LD #### [facility] [address] [place] [address] Front End Software Developer: Christopher Dorsey DOTroponin I.cardiac [Mass/Vol]NOT REPORTED [facility] KYKaur T.cardiac [Mass/Vol]NOT REPORTED<0.03 ng/mLOhioHealth [facility]ering[facility], KYTroponin, High Sensitivity<60 - 14 ng/LMercy [facility], KYComment on above: High Sensitivity Troponin values cannot be compared with other Troponin methodologies. Patients with high levels of Biotin oral intake (i.e >5mg/day) may have falsely decreased Troponin levels. Samples collected within 8 hours of biotin intake may require additional information for diagnosis. Troponin I.cardiac [Mass/Vol]NOT REPORTEDNoACMC Healthcare System on above:Performed By: #### CDP, CRP, CP, TROPI, HCG, LD #### [facility] [address] [place] [address] Front End Software Developer: Christopher Dorsey DOTroponin I.cardiac [Mass/Vol]NOT REPORTED [facility] KYTrdarion T.cardiac [Mass/Vol]NOT REPORTED<0.03 ng/mLOhioHealth [facility], KYTroponin, High Sensitivity<60 - 14 ng/LMOhio Valley Surgical Hospital, KYComcorewell health greenville hospital on above: High Sensitivity Troponin values cannot be compared with other Troponin methodologies. Patients with high levels of Biotin oral intake (i.e >5mg/day) may have falsely decreased Troponin levels. Samples collected within 8 hours of biotin intake may require additional information for diagnosis. XR CHEST PORTABLEon [id number] CHEST PORTABLEEXAMINATION: ONE XRAY VIEW OF THE CHEST 03/01/2020 [...] Signed by: Wilfredo Andrade MD 03/01/20 Final resultNoK[facility] acute [facility]opulmonary process. [facility] HospitalJose A, Veronica Incoming Radiant Results From Active-Semicribe/Pacs - 03/01/2020 10:19 AM EDT EXAMINATION: ONE [...] osseous abnormality. IMPRESSION: No acute cardiopulmonary process. [facility] HospitalSHANIKAEXAMINATION: ONE XRAY VIEW OF THE CHEST 03/01/2020 9:46 am COMPARISON: None. HISTORY: ORDERING SYSTEM PROVIDED HISTORY: Cough TECHNOLOGIST PROVIDED HISTORY: Cough Reason for Exam: Pt states left chestpain, SOB 3 days Acuity: Acute Type of Exam: Initial FINDINGS: There is no acute consolidation or effusion. There is no pneumothorax. The mediastinal structures are unremarkable. The upper abdomen isunremarkable. The extrathoracic soft tissues are unremarkable. There is no acute osseous abnormality.[facility], SHANIKA Vital Signs Date TimeVital SignValuePerforming YhhhcdmpgNicbdimj03-03-2825 10:12-0400Body uzerdl748.91 cmFamazin Hill SOFTWARE TOOLS DEVELOPER Work Phone: [phone] [address]09-23-2025 10:12-0400 Body mass index (BMI) [Ratio]35.4 kg/c9WudxsEmmie Hill APRN Work Phone: [phone] [place], [place] 2603909-23-2025 10:12-0400 Body lavlzi90.05 kgEmmie Hill SOFTWARE TOOLS DEVELOPER Work Phone: [phone]09-23-2025 10:12-0400 Diastolic blood xrcgrvca74 mm[Hg]Emmie Hill SOFTWARE TOOLS DEVELOPER Work Phone: [phone]09-23-2025 10:12-0400 Heart rate80 /minEmmie Hill APRN Work Phone: [phone] [place], [place] 2603909-23-2025 10:12-0400 Respiratory rate18 /minFaith Liz SOFTWARE TOOLS DEVELOPER Work Phone: [phone] [place], [place] 3501409-23-2025 10:12-0400 Systolic blood yknzxzgp426 mm[Hg]Emmie Liz SOFTWARE TOOLS DEVELOPER Work Phone: [phone] [place], [place] 3501409-04-2025 14:10-0400 Body tlayex261.56 cmFaith Liz SOFTWARE TOOLS DEVELOPER Work Phone: [phone] [place], [place] 3501409-04-2025 14:10-0400 Body mass index (BMI) [Ratio]36.6 kg/s0Bcpdn Liz SOFTWARE TOOLS DEVELOPER Work Phone: [phone] [place], [place] 3501409-04-2025 14:10-0400 Body vuwarx17.61 kgFaith Liz SOFTWARE TOOLS DEVELOPER Work Phone: [phone] [place], [place] 3501409-04-2025 14:10-0400 Diastolic blood jewgkhyg26 mm[Hg]Emmie Liz SOFTWARE TOOLS DEVELOPER Work Phone: [phone] [place], [place] 3501409-04-2025 14:10-0400 Heart rate88 /minFaith Liz SOFTWARE TOOLS DEVELOPER Work Phone: [phone] [place], [place] 3501409-04-2025 14:10-0400 SaO2% (BldA) [Mass fraction]98 %Emmie Liz SOFTWARE TOOLS DEVELOPER Work Phone: [phone] [place], [place] 3501409-04-2025 14:10-0400 Systolic blood nubbkmxk669 mm[Hg]Emmie Liz SOFTWARE TOOLS DEVELOPER Work Phone: [phone] [place], [place] 3501409-03-2025 06:40-0400 Body crwzla184.56 cmFaith Liz SOFTWARE TOOLS DEVELOPER Work Phone: [phone] [place], [place] 3501409-03-2025 06:40-0400 Body rtnuug17.26 kgFaith Liz SOFTWARE TOOLS DEVELOPER Work Phone: [phone] [place], [place] 3501408-07-2025 12:07-0400 Body qbrcer616.56 cmFaith Liz SOFTWARE TOOLS DEVELOPER Work Phone: [facility]08-07-2025 12:07-0400 Body mass index (BMI) [Ratio]36.6 kg/z0Kvkfz Liz SOFTWARE TOOLS DEVELOPER Work Phone: [phone]-[facility]08-07-2025 12:07-0400 Body ituoxt15.61 kgFaith Liz SOFTWARE TOOLS DEVELOPER Work Phone: [phone] [place], [place] 2603908-07-2025 12:07-0400 Diastolic blood uydosfah79 mm[Hg]Emmie Liz SOFTWARE TOOLS DEVELOPER Work Phone: [phone] [place], [place] 2603908-07-2025 12:07-0400 Heart rate94 /minFaith Liz SOFTWARE TOOLS DEVELOPER Work Phone: [phone] [place], [place] 2603908-07-2025 12:07-0400 Systolic blood mm[Hg]Emmie Liz SOFTWARE TOOLS DEVELOPER Work Phone: [phone] [place], [place] 2603905-14-2025 13:46-0400 Body .6 cmAngela Lowe PA Work Phone: [facility] SystemFxswcccksg34-06-2728 13:46-0400Body mass index (BMI) [Ratio]35.87 kg/y5Fxyiyl Lowe PA Work Phone: [facility] SystemYmvolndmbo98-71-6504 13:46-0400Body rapvuq68.8 kg Sherita Lowe PA Work Phone: [facility] SystemNdmpvptoff88-79-5933 13:46-0400Diastolic blood hjydzgvu59 mm[Hg]Sherita Lowe PA Work Phone: [facility] SystemVlnjhshzuo03-21-4882 13:46-0400Systolic blood quzvjctb988 mm[Hg]Sherita Lowe PA Work Phone: [facility] SystemIplxvyrrcw02-10-7621 13:52-0500Diastolic blood cqizfdac54 mm[Hg]Emmie Liz SOFTWARE TOOLS DEVELOPER Work Phone: [phone]-[facility]03-04-2025 13:52-0500 Heart rate75 /minFaith Liz SOFTWARE TOOLS DEVELOPER Work Phone: [facility]03-04-2025 13:52-0500 Systolic blood ilxqlhhh550 mm[Hg]Emmie Hill SOFTWARE TOOLS DEVELOPER Work Phone: [facility]02-26-2025 08:23-0500 Body ojgrhf073.6 cmAnggraciela Lowe PA Work Phone: [facility] SystemSzhuyyplrc59-72-2905 08:23-0500Body mass index (BMI) [Ratio]36.56 kg/n3Hrorql Lowe PA Work Phone: [facility] [phone] 08:23-0500Body qrhzxo67.62 kgAngela Lowe PA Work Phone: [facility] SystemLtxrezdtfq43-31-8734 08:23-0500Diastolic blood oxhhjzzu18 mm[Hg]Sherita Lowe PA Work Phone: [facility] SystemSvueynsnki78-89-9516 08:23-0500Systolic blood mm[Hg]Sherita Lowe PA Work Phone: [facility] SystemCjjlwlxvzb19-20-7479 14:32-0500Body .6 cmAnnashley Hill PA Work Phone: [facility] SystemXbhsuaxmax58-33-7649 14:32-0500Body mass index (BMI) [Ratio]36.9 kg/m2Saloni Hill PA Work Phone: [facility] SystemBncvhwciyi04-58-0266 14:32-0500Body aysxdh19.52 kgSaloni Piper PA Work Phone: [facility] SystemJqmwayjaqw41-43-0068 14:32-0500Diastolic blood ooyasirk19 mm[Hg]Saloni Piper PA Work Phone: [facility] SystemOqyyefefms52-92-2443 14:32-0500Heart rate84 /min Saloni Piper PA Work Phone: [facility] SystemXlhdpcjwbh08-06-7312 14:32-0500Respiratory rate16 /minSaloni Piper PA Work Phone: [facility] SystemWrbiefoofx26-95-9430 14:32-5628IjY7% (BldA) [Mass fraction]97 %Saloni GREER Work Phone: [facility] SystemYxrffrvpqj27-01-1552 14:32-0500Systolic blood rfvteqrb343 mm[Hg]Saloni GREER Work Phone: [facility] SystemKtdgiynldj23-82-1737 09:42-0400Diastolic blood qdpybjad14 mm[Hg]OMKAR Olea Liz Work Phone: [phone]06-27-2024 09:42-0400 Heart rate88 /minOMKAR Olea Liz Work Phone: [phone] [address]06-27-2024 09:42-0400 Respiratory rate20 /minOMKAR Olea Liz Work Phone: [phone]06-27-2024 09:42-0400 SaO2% (BldA) [Mass fraction]97 %SOFTWARE TOOLS DEVELOPER Emmie Liz Work Phone: [phone] [place], [place] 260[address]06-27-2024 09:42-0400 Systolic blood gvcktrep477 mm[Hg]SOFTWARE TOOLS DEVELOPER Emmie Liz Work Phone: [phone]06-27-2024 09:41-0400 Body ozcsxn086.56 cmAPRN Emmie Liz Work Phone: [phone]06-27-2024 09:41-0400 Body adlqmj65.25 kgAPRN Emmie Liz Work Phone: [phone] [place], [place] 260[address]06-19-2024 13:17-0400 Body jpnulm396.56 cmTrihealth Mccull[facility]06-19-2024 13:17-0400Body mass index (BMI) [Ratio]36.6 kg/j6KclowrwmsTrihealth Mccullough-Hyde Memorial Hospital06-19-2024 13:17-0400Body hgsbil49.78 kgTrihealth Mccullough-Hyde Memorial Hospital06-19-2024 13:17-0400Diastolic blood mm[Hg][facility] 02-22-2024 13:17-0400Heart rate71 /minTrihealth Mccullough-Hyde Memorial Hospital 02-22-2024 13:17-0400Respiratory rate18 /[facility] 02-22-2024 13:179398NpR3% (BldA) [Mass fraction]98 %[facility]06-19-2024 13:170400Systolic blood mm[Hg][facility]06-27-2020 12:15-0400BP Sciwibbai42 mm[Hg][place], [place]06-27-2020 12:15-0400BP Gmdbquuv10 mm[Hg][place], [place]06-27-2020 12:15-0400Pulse (Heart Rate)61 /[place], [place]06-27-2020 12:15-0400Pulse Ofqlxxqb575 %[place], [place]06-27-2020 12:15-0400Respiratory Rate14 /[place], [place]06-27-2020 09:00-0400BMI (Body Mass Index)31.76 kg/k5HcagiBro[place], [place]06[place] 09:00-0400Body Fymelgexbgs37.9 [degF] [place], [place]06-27[place]2020 09:00-0400Body fvmany03.92 kgBro[place]lyn[place]06[place] 09:00-8510Llzuld423.6 [facility] Encounters Encounter DateEncounter TypeCare ProviderFacilityStart: 05-28-2025 End: 69-14-2587ajzwjyrjjsXckysCarla Hill APRN Work Phone: [facility] Work Phone: Start: 05-28-2025 End: 68-45-5334Yabqavt encounter procedureRadha Ferrara [facility] Work Phone: Start: 05-09-2025 End: 25-00-8607lhqwziliuxHwuxlCarla Hill APRN Work Phone: [facility] Work Phone: start: 05-09-2025 End: 74-52-9745Phhsoav encounter procedureEmerita Dumont DO-[facility] Neurology [place] Work Phone: Start: 05-08-2025 End: 13-00-2854Cwtvlne encounter procedureSherita Ferrara APRN-[facility] [address] [place] Work Phone: Start: 05-08-2025 End: 74-03-0306jyldjofgnpEzmbm Liz SOFTWARE TOOLS DEVELOPER Work Phone: [facility] Work Phone: Start: 04-15-2025 End: 11-79-3901yeztlmeivsZrnnw Liz SOFTWARE TOOLS DEVELOPER Work Phone: [facility] Work Phone: Start: 04-15-2025 End: 95-11-1333Vvwetto encounter Eb Ferrara APRNMaria [facility] Work Phone: Start: 01-16-2025 End: 74-28-6765Lvobwx flowsheetAngela Lowe PA Work Phone: ana BELLEVUEStart: 01-16-2025 End: 03-66-4246Zrmyac flowsheetAngela Lowe PA Work Phone: ana BELLEVUEStart: 01-16-2025 End: 13-17-6538Pjalzm outpatient visit 25 minutesAngela Lowe PA Work Phone: aNA BELLEVUEComment on above:Brain fog (Primary Dx); Neuropathic pain; Migraine without aura and without status migrainosus, not intractable (CMS/HCC); ParesthesiaStart: 01-16-2025 End: 97-94-6805jjclfwetcqATLJFG LOWENot AvailableStart: 11-06-2024 End: 76-67-8692Fjnurauaew RecurringFaith Liz SOFTWARE TOOLS DEVELOPER Work Phone: [facility]-Infusion Therapy - O/P Work Phone: Start: 11-06-2024 End: 29-71-5697hwoqdveykhIugev Liz SOFTWARE TOOLS DEVELOPER Work Phone: [facility] Work Phone: Start: 10-31-2024 End: 75-21-0560Bbacwx flowsheetAngela Lowe PA Work Phone: aNA NORWALKStart: 10-31-2024 End: 78-63-0898Rsnbmh flowsheetAngela Lowe PA Work Phone: aNA NORWALKStart: 10-31-2024 End: 12-28-2884Vfavhf outpatient visit 25 minutesAngela Lowe PA Work Phone: ana LYNETTEWALKComment on above:Neuropathic pain (Primary Dx); Migraine without aura and without status migrainosus, not intractable (CMS/HCC); Paresthesia; Brain fog; Gait instability; Muscle crampsStart: 10-31-2024 End: 03-08-9385pyubwiygfoLQGNLA LOWENot AvailableStart: 09-03-2024 End: 12-62-2902Wmrwnzcma encounterJesssammy [address] Start: 08-20-2024 End: 68-29-8891Bkfjgjfmu encounterEzequiel Conklin DO Work Phone: NeurologyComment on above:CALL - IMPORTANT AUTONOMIC TESTING INSTRUCTIONS FOR QSARTStart: 07-31-2024 End: 71-18-4667Bpvmfw Chloe Real MD Work Phone: Neurology [facility] FHCComment on above: Paresthesia (Primary Dx)Start: 07-30-2024 End: 36-99-3462pnbpcymvfpAIAdelia PIPERFacility:FTMCStart: 07-30-2024 End: 13-69-0754Uxzmeqk encounter Yogesh PIPER [facility] Start: 07-25-2024 End: 06-29-4564Vbwtqt outpatient visit 25 minutesAnne Hill PA Work Phone: noms NE NEUROComment on above:Migraine without aura and without status migrainosus, not intractable (CMS/HCC) (Primary Dx); Paresthesia; Hyper reflexia; Vision changes; Muscle crampsStart: 07-25-2024 End: 11-47-1690cmsofmdehvEEGK HILLNot AvailableStart: 07-25-2024 End: 06-34-3762Jdrfxx Aryan GREER Work Phone: noms NE NEUROStart: 07-25-2024 End: 32-92-6316Hzrnym Aryan GREER Work Phone: noMS NE NEUROStart: 07-03-2024 End: 75-26-6981Yxcmml Cy Chavez MD Work Phone: NOMJ [place] [address]TEStart: 07-03-2024 End: 97-38-1620Fkoaet Cy Chavez MD Work Phone: noms [place] [address]TEStart: 07-03-2024 End: 51-53-2553tawyobdgqxKKIJWF ATIFCTNot AvailableStart: 04-10-2024 End: 26-25-5534qsvhtrnxzzZCCZ HILLNot AvailableStart: 03-14-2024 End: 05-20-5570Dmv-admission [facility] hospitalSALONI PIPER [facility] Start: 03-14-2024 End: 37-46-9405hokxhzvmhfRIRW HILLNot AvailableStart: 03-01-2024 End: 87-41-0947gvqbvoauqiUZNG Faith McNeal Work Phone: [facility] Work Phone: Start: 03-01-2024 End: 24-93-1716Ygnrpoh encounter procedureOMKAR Hill Work Phone: [facility]-MRI [address] [place] Work Phone: Start: 02-22-2024 End: 11-13-3326tsjixuzeejIfjtdvqhdNorwalk Memorial Hospital Work Phone: Start: 02-22-2024 End: 78-19-2599Ubyiwxz encounter procedureWashington [facility] Work Phone: Start: 83-66-3474rjglerpydkPPBARO PARTNERS COMMUN[facility] Facility:F5Jjhtm: 01-11-2023 End: 50-29-0994oyjiodgendBRTVQB PARTNERS COMMUNITYFacility:Q6Szwhe: 12-29-2022 ambulatoryDaniel [facility]ney [facility] - HPWOStart: 12-18-2022 End: 03-21-8898olsgvwlnbiYTQSBX PARTNERS COMMUNITYFacility:B4Ihqeg: 11-12-2022 End: 34-53-7340ktrnvncpthDQYCFX PARTNERS COMMUNITYFacility:A7Pqxht: 11-02-2022 End: 93-43-1343zwsbuoexggGMZVMO PARTNERS COMMUNITYFacility:Q4Aopga: 10-22-2022 End: 99-51-3633utznytsrexSJTHBV PARTNERS COMMUNITYFacility:Z4Vnchp: 09-06-2022 End: 09-39-5980axunerdpxeGHJCUGW D KATKOFacility:E6Spdcj: 08-05-2022 End: 85-71-9859rztxzkbxanHjkjeo Olexa Other [facility] [place] Other Start: 15-44-7941Jkwpaufxv encounterThomas OlexaFPG Andrez OrthopedicsStart: 06-28-2022 End: 29-27-5085htfawkhluqSIN STAFFSalem City Hospital [facility] Work Phone: Start: 06-28-2022 End: 49-28-1745Nkcadvm encounter procedureMD Mukund Olexa Work Phone: [facility] Joo-Ced-Kzzgyyjl Testing Start: 06-18-2022 End: 47-53-9808ndjnsnicysUurodndh McCormack Other [facility] [place] Other Start: 54-39-8284Ubmqbcixa encounterLaroyal HOUGH GastroenterologyStart: 05-17-2022 End: 73-08-8406guqbnhumqaIBUKPX PARTNERS COMMUNITYFacility:X3Afofn: 05-05-2022 End: 85-64-5928rjwzujrznqFMIMEL OLEXAFacility:J1Qvmjx: 05-04-2022 End: 47-91-1017yxrcxaiyscSxtdxhwp [place] Other [facility] [employer] Other Start: 46-48-0613Fuswya outpatient visit 15 minutes Radha SuzeFPG Andrez OrthopedicsStart: 04-26-2022 End: 02-72-0794anfefoagckMixulv Olexa Other [facility] [employer] Other Start: 38-56-9935Dwcatp outpatient visit 15 minutes Mukund RodriguezFPElena Maguire OrthopedicsStart: 04-20-2022 End: 19-57-5811Ktdulce encounter procedureMD Mukund Rodriguez Work Phone: [facility]-MRI Strub RdStart: 04-16-2022 End: 24-93-2602vipdnrmuevYIYIXT PARTNERS COMMUNITYFacility:U2Hqkfw: 04-15-2022 Encounter for preprocedural laboratory examinationDR CHARLES AYLIN .[facility] Daytontart: 04-13-2022 End: 52-00-6948Ehdkqdmvm for preprocedural laboratory examinationHEALTH PARTNERS COMMUNITYFacility:P3Cqjqo: 04-13-2022 End: 61-59-2137qrsckbwsolZJTPBA PARTNERS COMMUNITYFacility:A8Wzlcr: 04-12-2022 End: 50-46-3171qvsafjjmoeWfmxqh Olexa Other [address] [employer] Other Start: 76-22-3135Wgdsknfgx encounterThalec CalixaFRANCE Varelausky OrthopedicsStart: 03-23-2022 End: 82-20-9424cmonzhsvcoEXNBDH PARTNERS COMMUNITYFacility:E1Qqfyb: 03-19-2022 ambulatoryHEALTH PARTNERS COMMUNITYFacility:M8Kzoqz: 03-08-2022 End: 19-38-1838ugeqggwdsdEDUDTE PARTNERS COMMUNITYFacility:R4Joxgc: 03-01-2022 End: 39-12-3524tbmpzmckzbJpvnso Olexa Other [facility] [employer] Other Start: 60-43-4095Rilwxz outpatient new 45 minutes Mukund OlexaFPG [place] OrthopedicsStart: 02-27-2022 End: 47-08-1302dllbdzuctcQPHXEP PARTNERS COMMUNITYFacility:S0Dgkro: 02-23-2022 End: 53-40-0946howkxwcglqLYKBWJ PARTNERS COMMUNITYFacility:F4Bmfre: 03-01-2020 End: 94-06-5378Mnqgaehqr department patient visitOhio [facility] HospitalStart: 03-01-2020 End: 56-59-5356Inejjoiab department patient visitPrincess Buchanan Work Phone: [facility] EDComment on above:Bronchitis (Primary Dx) Procedures DateProcedureProcedure DetailPerforming ClinicianStart: 31-25-1938VKS of head Emmie Hill SOFTWARE TOOLS DEVELOPER Work Phone: Start: 67-50-3577PD pre/post mri xrayAPRN Emmie Hill Work Phone: Start: 77-11-0362DNL of cervical spine with contrast OMKAR Hill Work Phone: Start: 52-50-1704JUA of thoracic spine with contrast SOFTWARE TOOLS DEVELOPER Emmie Hill Work Phone: Start: 65-95-9039PJT of left kneeMD Mukund Olexa Work Phone: Start: 75-33-4470Dxnok of troponin quantitativePRINCESS FOURNIERtart: 34-07-7642Jijsgzxqcp exam chest single viewPRINCESS FOURNIERtart: 92-44-1598Aeenf of troponin quantitativePrincess Buchanan Work Phone: Start: 04-91-0471Uzvwl count complete auto&auto difrntl wbcJAMES BROSCHAKStart: 86-66-6083S-reactive proteinPRINCESS BARRAGANAKStart: 65-12-2836Aejvyqbuayfae metabolic panelPRINCESS Ramesys (e-Business) ServicesAKStart: 03-01-2020 Gonadotropin chorionic qualitativePRINCESS iSpecimenCONNERtart: 19-33-8573Tlyrnvl dehydrogenase ldhPRINCESS Ramesys (e-Business) ServicesAKStart: 08-86-2644Hxl routine ecg w/least 12 lds w/i&rJAMES BROSCHAKStart: 25-71-7924Dsrzqtbcqm exam chest single viewPrincess Buchanan Work Phone: Start: 09-80-0974Uaeag of troponin quantitativePrincess Buchanan Work Phone: Start: 69-57-7505Ukoji count complete auto&auto difrntl wbcPrincess Buchanan Work Phone: Start: 11-80-7519A-reactive proteinPrincess Buchanan Work Phone: Start: 62-56-4966Tdzezsosulvgn metabolic panelPrincess Buchanan Work Phone: Start: 86-07-3062Drzqvwnbtody chorionic qualitative Princess Chanel Work Phone: Start: 53-22-1741Xwedhmm dehydrogenase ldhPrincess BerGenBionishant Work Phone: H/O: hysterectomyHx of hysterectomyFaith Liz SOFTWARE TOOLS DEVELOPER Work Phone: H/O: hysterectomyHx of hysterectomyRadha Ferrara DNPHistory of cholecystectomyHx of cholecystectomyFaith Liz SOFTWARE TOOLS DEVELOPER Work Phone: History of cholecystectomyHx of cholecystectomy Radha Ferrara DNP Plan of Treatment DateCare ActivityDetailAuthorStart: 01-16-2025 End: 69-60-3522Gnnoarc encounter vuxxhfqmf12/14/2025 8:40 AM EDT Office Visit VIKA CHRISTENSEN [address] [place] [address] Sherita Rodriguez PA [address] [place], [place] [id number] Juan F CHRISTENSENComment on above:ArrivedStart: 11-28-2024 End: 84-04-5128Fdibzzd encounter oyzgugbdc50/26/2025 8:20 AM EDT Office Visit VIKA CHRISTENSEN [address] [place] [address] Sherita Rodriguez PA [address] [place], [place] [address] VIKA RUBIOtart: 10-31-2024 End: 08-93-2404RY Brain WO and W contrast IVMR brain w and wo contrast routine Imaging Routine Neuropathic pain Migraine without aura and without status migrainosus, not intractable (CMS/HCC) Expected: 10/31/2024 (Approximate), Expires: 10/31/2025[facility] Work Phone: comment on above:Expected: 10/31/2024 (Approximate), Expires: 10/31/2025Start: 10-31-2024 End: 66-88-5829Kkjjske encounter elptwmdko52/26/2025 8:40 AM EST Office Visit VIKA PIERSON [address] [place] [address] Sherita Rodriguez PA [address] [place], [place] [address] Juan F ISABELomjimenez on above:ArrivedStart: 10-10-2024 End: 20-92-0154Qhftomc encounter ccuogcdmu36/05/2025 12:00 PM EST Office Visit [facility] [address] [place] [phone] Sherita Rodriguez PA [address] [place], [place] [id number] [facility] NEUROLOGYStart: 09-25-2024 End: 79-66-2004Gapsxxp encounter cwiidwavx39/21/2025 3:00 PM EST Office Visit NOMCarol [place] [address] [place] [address] Louie Chavez MD [address] [place] [address] N[facility]S [place] [address] R[address]TEStart: 09-10-2024 End: 44-21-3182KG Brain WO and W contrast IVMR brain w and wo contrast routine Imaging Routine Vision changes Hyper reflexia Expected: 09/10/2024 (Approximate), Expires: 09/10/2025[facility] Work Phone: comment on above:Expected: 09/10/2024 (Approximate), Expires: 09/10/2025Start: 09-10-2024 End: 20-63-6366SRV Head vessels WO contrastMR angiogram head wo IV contrast Imaging Routine Vision changes Expected: 09/10/2024 (Approximate),Expires: 09/10/2025N[facility]S HealthcareComment on above:Expected: 09/10/2024 (Approximate), Expires: 09/10/2025Start: 09-10-2024 End: 05-29-2661UDK Neck vessels WO contrastMR angiogram neck wo IV contrast Imaging Routine Vision changes Expected: 09/10/2024 (Approximate),Expires: 09/10/2025[facility] HealthcareComment on above:Expected: 09/10/2024 (Approximate), Expires: 09/10/2025Start: 08-30-2024 End: 90-21-5876mvogwgzfko00/26/2024 9:15 AM EST Procedure Neurology [address] [place] [address] r OMD QSARTNeurologyComment on above:r OMD QSARTStart: 07-26-2024 End: 75-49-7445SKABBIEPMUZON REFERRALMISCELLANEOUS REFERRAL Lab Routine Paresthesia Expected: 07/26/2024 (Approximate), Expires: 07/26/2025NOMS HealthcareComment on above:Expected: 07/26/2024 (Approximate), Expires: 07/26/2025Start: 07-25-2024 End: 12-98-7015Marzrwm encounter gofrqarkm50/20/2024 2:40 PM EST Office Visit [facility] [address] [place] [address] Saloni Piper PA [address] [place] [address] [facility] HospitalDAVIDPR NE NEUROComment on above:ArrivedStart: 07-25-2024 End: 24-76-2717OejfyunpSrmandfo Lab Routine Muscle cramps Expected: 07/25/2024 (Approximate), Expires: 07/25/2025[facility] HealthcareComment on above:Expected: 07/25/2024 (Approximate), Expires: 07/25/2025Start: 07-25-2024 End: 03-00-7651Pjykaaoyq (Vitamin B12) [Mass/volume] in Serum or PlasmaVitamin B12 Lab Routine Paresthesia Muscle cramps Expected: 07/25/2024 (Approximate), Expires: 07/25/2025PR HealthcareComment on above:Expected: 07/25/2024 (Approximate), Expires: 07/25/2025Start: 07-25-2024 End: 77-47-4140Migtaihc kinase [Enzymatic activity/volume] in Serum or PlasmaCK Lab Routine Muscle cramps Expected: 07/25/2024 (Approximate), Expires: 07/25/2025 Healthcare Work Phone: comment on above:Expected: 07/25/2024 (Approximate), Expires: 07/25/2025Start: 07-25-2024 End: 67-42-0400Vltoeh [Mass/volume] in Serum or PlasmaFolate Lab Routine Paresthesia Muscle cramps Expected: 07/25/2024 (Approximate), Expires: 07/25/2025N[facility]R HealthcareComment on above:Expected: 07/25/2024 (Approximate), Expires: 07/25/2025Start: 07-25-2024 End: 29-83-8055Zmuvgsjtisybeo [Moles/volume] in Serum or PlasmaMethylmalonic acid, serum Lab Routine Paresthesia Muscle cramps Expected: 07/25/2024 (Approximate),Expires: 07/25/2025N[facility] HealthcareComment on above:Expected: 07/25/2024 (Approximate), Expires: 07/25/2025Start: 07-25-2024 End: 52-14-9754Mwqlhdzwh, serumMyoglobin, serum Lab Routine Muscle cramps Expected: 07/25/2024 (Approximate), Expires: 07/25/2025NOMS HealthcareComment on above:Expected: 07/25/2024 (Approximate), Expires: 07/25/2025Start: 07-25-2024 End: 23-18-5870Tfrskm evoked potential testVisual evoked potential test Neurology Routine Vision changes Expected: 07/25/2024 (Approximate), Expires: 07/25/2025NOMS HealthcareComment on above:Expected: 07/25/2024 (Approximate), Expires: 07/25/2025Start: 07-03-2024 End: 07-32-9118Khrqlac encounter oevfnoyuh69/29/2024 9:30 AM EDT Procedure Visit [facility] [address] [place] [address] Louie Chavez MD [address] [place] [address] ArrivedST. MARY'[facility] ROUTEComment on above: ArrivedStart: 34-36-0014Kxrua-19 Vaccine ( season)Covid-19 Vaccine ( season)[facility]: 65-35-6254Nlheotnjm vaccination Influenza Vaccine (#1)[facility] HealthcareStart: 78-78-4849Znswinxvm vaccinationFlu vaccine (Season Ended)[facility]: 34-42-7682Gbnsjnntq for malignant neoplasm of cervixNOMS HealthcareStart: 23-12-0896Widjwvfvo for malignant neoplasm of cervixNOMS HealthcareStart: 15-87-8099YBqW/Tdap/Td vaccine (1 - Tdap)DTaP/Tdap/Td vaccine (1 - Tdap)[facility]: 2003 Hepatitis B Vaccine (1 of 3 - 19+ 3-dose series)Hepatitis B Vaccine (1 of 3 - 19+ 3-dose series)[facility] Rehabilitationt[facility]: 79-59-3104Znwfx microalbumin profile DTaP,Tdap,Td Vaccine (1 - Tdap)[facility] Rehabilitationt[facility]: 20-71-0444Tcqdfss ScreeningAnxiety ScreeningCleveland Clinic Children's Hospital for Rehabilitationtart: 45-55-3209Tfehiuvbsw Screening Depression ScreeningCleveland Clinic Children's Hospital for Rehabilitationtart: 68-70-9764Kbnhbskpc C screening Hepatitis C ScreeningCleveland Clinic Children's Hospital for Rehabilitationtart: 97-01-3779SWB screeningHIV Screening [facility] Rehabilitationtart: 18-97-3043EQO screeningHIV screenKake, [place] Start: 00-82-0058Bqxycvbqlyex 0-64 years Vaccine (1 of 1 - PPSV23)Pneumococcal 0-64 years Vaccine (1 of 1 - PPSV23)[place], [place]: 1985 Varicella vaccine (1 of 2 - 2-dose childhood series)Varicella vaccine (1 of 2 - 2-dose childhood series)[facility], KYEKG 12 LeadEKG 12 Lead ECG STAT 03/01/2020 9:20 AM [facility]DAk[facility], NISHANT QSARTNEURO QSART Procedures Routine Paresthesia Ordered: 07/31/2024[facility] Work Phone: Comment on above:Ordered: 07/31/2024 Payers DatePayer CategoryPayerPolicy [id number] MEDICAID [facility] MEDICAID [id number] 2023-Present [phone] [address] [place] [address] [id number] Health InsuranceCARESOJIM [facility] Member Subscriber Plan / Payer (Effective 2023-Present) Name: Lilly Beckham Relation to Subscriber: Self Name: Lilly Beckham Payer ID: Not on file Group ID: [id number] Type: Not on file Address: [address] [place] [id number] 2020Medicaid [facility] [place] MED[place] [facility] [place] MEDICA xxxxxxxxxxxx 2020-Present [phone] [address] [address] [place] [address]ajgvxzpzzafw [id number] 2.16840.1.395314.3.57[id number] 2.16840.1.970311.3.57[id number] 2.16840.1.522515.3.57[id number] 2.16840.1.593712.3.57[id number] 2.16.840.1.689991.3.57[id number] 2.16.840.1.093224.3.57[id number] 2.16840.1.245035.3.57[id number] 2.16.840.1.582709.3.57[id number] 2.16840.1.813332.3.57[id number] 2.16840.1.976841.3.57[id number] 2.16840.1.965637.3.57[id number] 2.16.840.1.964613.3.57[id number] 2.16.840.1.287163.3.57[id number] 2.16.840.1.585073.3.57[id number] 2.16.840.1.546258.3.57[id number] 2.16.840.1.880034.3.57[id number] 2.16.840.1.461926.3.57[id number] 2.16.840.1.353718.3.57[id number] 2.16.840.1.094420.3.57[id number] 2.16.840.1.372282.3.57[id number] 2.16.840.1.096630.3.57[id number] 2.16.840.1.204389.3.57[id number] 2.16.840.1.976188.3.57[id number] 2.16.840.1.150972.3.57[id number] 2.16.840.1.772941.3.579.2.1259 [id number] 1960Self-pay [id number] 2.16.840.4.115102.75695173-76-3587Hgvmdst59-157390 [id number] 2.16.[id number] 2.1[id number] 2.16.840.1.594245.3.579.2.531Unknown [id number] 2.16.840.1.876869.3.579.2.531Worker's CompensationSeXend[employer] Holding [facility] [id number]'s CompensationCoeCareDiary-[facility] [id number] Social History DateTypeDetailFacilityStart: 03-01-2020 End: 35-41-9297Jhzmzft smoking status NHISCurrent every day smokerNOMS HealthcareStart: 29-44-8172Rjzobzp of tobacco useCigarette SmokerKake, [place]Start: 42-11-6378Ccwyfqs intakeEx-drinker (finding)[place] Start: 65-56-5371Jcm Assigned At BirthNot on [place], KYExposure to SARS-CoV-2 (event)Unable to assessK[place], KYStart: 04-10-2024 End: 69-23-8596Qhh [facility]igned At [facility] CenterStart: 26-85-0258Psl Assigned At [facility]tart: 02-22-2024 End: 09-84-4607Zkuokls smoking status NHISSmoker (finding)[facility] HospitalTobacco smoking statusNo Smoking Status [facility] Hospitaltart: 03-14-2024 End: 03-32-8846Uyqbublbat smoked current (pack per day) - Reported0.5NOMS HealthcareStart: 58-49-6261Tommfly use and exposureSmokeless tobacco non-user [facility] HealthcareStart: 04-10-2024 End: 34-78-7630Zbyljfggj beverage intakeLifetime non-drinker (finding)[facility] HealthcareStart: 31-20-1003Xfcoxed CommentSmokes 5 mins after waking upNOMS HealthcareStart: 81-24-1563Inaddjd Commentcaffeine: dailyNOMS HealthcareTobacco smoking status NHISTobacco smoking consumption unknownCleveland Clinic Children's Hospital for Rehabilitationtart: 22-29-0583XexZakcqd (finding)[facility] HospitalNEGATED: Highlighted [facility] Clinical Notes 03-01-2022 to 04-15-2025 Note Date & UlraRuujCbsqepyf93-94-4357 Evaluation note* Diagnosis Onset Date Resolution Status Admit Date Abnormal MRI of head acuteAugust 2024 3:54pmMigraine without aura and without status migrainosus, not intractableacuteAugust 2024 3:54pmMuscle crampsacute April 15, 2025 3:54pmNeuropathic painacuteAugust 2024 3:54pm ParesthesiasacuteAugust 2024 3:54pm [facility] Work Phone: 1(294) 392-710908-11-2025 Evaluation note* Diagnosis Onset Date Resolution Status Admit Date Abnormal MRI of head acuteAugust 2024 3:54pmMigraine without aura and without status migrainosus, not intractableacuteAugust 2024 3:54pmMuscle crampsacute April 15, 2025 3:54pmNeuropathic painacuteAugust 2024 3:54pm ParesthesiasacuteAugust 2024 3:54pmAbnormal MRI of headacuteSeptember 2024 2:06pmMigraine without aura and without status migrainosus, not intractableacuteSeptember 2024 2:06pmMuscle crampsacuteSeptember 2024 2:06pmNeuropathic painacuteSeptember 2024 2:06pmParesthesiasacuteSeptember 2024 2:06pm [facility] Work Phone: 1(814) 233-802708-11-2025 Evaluation note* Diagnosis Onset Date Resolution Status Admit Date Abnormal MRI of head acuteAugust 2024 3:54pmMigraine without aura and without status migrainosus, not intractableacuteAugust 2024 3:54pmMuscle crampsacute April 15, 2025 3:54pmNeuropathic painacuteAugust 2024 3:54pm ParesthesiasacuteAugust 2024 3:54pmAbnormal MRI of headacuteSeptember 2024 2:06pmAtypical migraineacuteSept2024 2:06pmMigraine without aura and without status migrainosus, not intractableacuteSeptember 2024 2:06pmMuscle crampsacuteSept2024 2:06pmNeck painacuteSept2024 2:06pmNeuropathic painacuteSeptember 2024 2:06pmParesthesiasacute May 09, 2025 2:06pmAbnormal weight gainacuteSeptember 2024 9:10am AnxietyacuteSeptember 2024 9:10amAsthmaacuteSeptember 2024 9:10am Bipolar disorderacuteSeptember 2024 9:10amBMI 35.0-35.9,adultacute May 28, 2025 9:10amDepressionacuteSeptember 2024 9:10amDietary surveillance and counselingacuteSept2024 9:10amElevated glucose levelacuteSeptember 2024 9:10amExercise counselingacuteSeptember 2024 9:10amFibromyalgiaacuteSeptember 2024 9:10amGERD (gastroesophageal reflux disease)acuteSept2024 9:10amHistory of kidney stonesacute May 28, 2025 9:10amHistory of pancreatitisacuteSeptember 2024 9:10amHx of cholecystectomyacuteSeptember 2024 9:10amHx of hysterectomy acuteSeptember 2024 9:10amInsomniaacuteSeptember 2024 9:10amMigraine without aura and without status migrainosus, not intractableacuteSeptember 2024 9:10amObesity, Class II, BMI 35-39.9acuteSeptember 2024 9:10am PCOS (polycystic ovarian syndrome)acuteSeptember 2024 9:10amPersonality disorderacuteSeptember 2024 9:10amPrediabetesacuteSeptember 2024 9:10am [facility] Work Phone: 1(773) 474-795605-14-2025 History of Present illness Narrative* PERCY Mcdaniel - 01/16/2025 8:40 AM EDT Images from the original note were not included. Subjective Lilly Beckham is a 38 year old female No chief complaint on file. Past Medical History: Diagnosis Date Anxiety Asthma ([facility]) Bipolar 1 disorder ([facility]/HCC) Borderline personality disorder in adult ([facility]/HCC) Class 2 obesity COPD (chronic obstructive pulmonary disease) (CMS/HCC) Depression, controlled ([facility]/HCC) Eating disorder ([facility]/HCC) GERD (gastroesophageal reflux disease) Insomnia Post-traumatic stress ([facility]) Answers submitted by the patient for this [...] Neurological: Positive for dizziness, speech difficulty, weakness, light- headedness, numbness and headaches. Negative for syncope. Psychiatric/Behavioral: [...] Crossed adductor present. Positive finger flexors. Coordination Tzokqx-av-oijq, rapid alternating movements and orwc-hc-wupi normal bilaterally without dysmetria. Heart: Regular rate [...] to an underlying sleep disorder. She is alsoexperiencing paresthesia to the left side of the [...] MRI revealed no cord signal changes. She didnot schedule visual evoked potential x 3. She [...] myoglobin, B12, adolase. She notes that she hadPSG 6-7 years ago and notes that she did not meet criteria for AZEEM. She continues with hypersomnia.She had an excellent response to Depacon/Magnesium infusion [...] C3-C4. At C5-C6 there was a focal centraldisc protrusion contributing to mild spinal canal narrowing and no significant neural foraminal narrowing. At C6-C7 there was broad based disc bulge without joint spurring and facet hypertrophy contributing to mild bilateral neural foraminal narrowing and mild spinal canal narrowing. Thoracic spine MRI with and without contrast 03/01/2024: revealed mild degenerative changes noted atT7-T8, T8-T9, and T11-T12. No cord compression or [...] Follow up 2 months documented in this encounterLake Regional Health [id number] History of Present illness Narrative* PERCY Mcdaniel - 10/31/2024 8:40 AM EST Images from the original note were not included. Subjective Lilly Beckham is a 38 year old female Chief Complaint Patient presents with Migraine Past Medical History: Diagnosis Date Anxiety Asthma ([facility]) Bipolar 1 disorder ([facility]/HCC) Borderline personality disorder in adult ([facility]) Class 2 obesity COPD (chronic obstructive pulmonary disease) ([facility]/HCC) Depression, controlled ([facility]) Eating disorder ([facility]) GERD (gastroesophageal reflux disease) Insomnia Post-traumatic stress ([facility]) Answers submitted by the patient for this [...] Crossed adductor present. Positive finger flexors. Coordination Nvoscm-nx-lshm, rapid alternating movements and rqdk-hx-gukm normal bilaterally without dysmetria. Heart: Regular rate [...] intracranial process such as stroke. She had abrain MRI that revealed nonspecific white matter changes. [...] C3-C4. At C5-C6 there was a focal centraldisc protrusion contributing to mild spinal canal narrowing and no significant neural foraminal narrowing. At C6-C7 there was broad based disc bulge without joint spurring and facet hypertrophy contributing to mild bilateral neural foraminal narrowing and mild spinal canal narrowing. Thoracic spine MRI with and without contrast 03/01/2024: revealed mild degenerative changes noted atT7-T8, T8-T9, and T11-T12. No cord compression or [...] Follow up after testing. documented in this encounterNOSaint Joseph Hospital of [id number] Telephone encounter Note* Telephone Encounter - PERCY Mcdaniel - 09/10/2024 1:18 PM EST Ordered. [facility] [id number] Miscellaneous Notes* Telephone Encounter - PERCY Mcdaniel - 09/10/2024 1:18 PM EST Ordered. * Telephone Encounter - Audra Briscoe MA - 09/10/2024 9:56 AM EST She is willing to have MRI and MRA done. [facility] * Telephone Encounter - PERCY Mcdainel - 09/10/2024 7:58 AM EST Records reviewed. * Telephone Encounter - Audra Briscoe MA - 09/03/2024 9:08 AM EST Patient states that she went into the ER over the weekend with a migraine, loss of vision in her left eye. Numbness in the one side of the body. She states that they did not change her medications. Idid schedule her for a sooner appt but she could only go to [place] and will not be coming in until 09/25. She went [facility]. Is there anything to do in the meantime. I called [facility] and they are faxing records. I did advise that we did not have providers in until and if symptoms became bothersomeor concerning go back to the ER. Stated understanding. documented in this encounterNOMS [id number] Telephone encounter Note* Telephone Encounter - Audra Briscoe MA - 09/10/2024 9:56 AM EST She is willing to have MRI and MRA done. [facility] [id number] Telephone encounter Note* Telephone Encounter - PERCY Mcdaniel - 09/10/2024 7:58 AM EST Records reviewed. [facility] [id number] Telephone encounter Note* Telephone Encounter - Audra Briscoe MA - 09/03/2024 9:08 AM EST Patient states that she went into the ER over the weekend with a migraine, loss of vision in her left eye. Numbness in the one side of the body. She states that they did not change her medications. Idid schedule her for a sooner appt but she could only go to [place] and will not be coming in until 09/25. She went [facility]. Is there anything to do in the meantime. I called [facility] and they are faxing records. I did advise that we did not have providers in until and if symptoms became bothersomeor concerning go back to the ER. Stated understanding. [facility] [id number] Telephone encounter Note* Telephone Encounter - Karen Long - 08/20/2024 9:00 AM EST Spoke with Lilly on 08/20 regarding testing and medication instructions. The medication(s) listed below will need to be stopped prior to Autonomic testing. Patient was instructed to contact their prescribing physician to ensure it is safe to discontinue the medication(s) and to receive the proper tapering instructions, if necessary. Patient instructed to not discontinueany medications without consulting their prescribing physician. [facility] recommended the following medication discontinuation lengths andinstructions: Trazodone, Trintellix, for 48 hours prior to [...] to take after the test, if necessary [facility]12-16-2024 Miscellaneous Notes* Telephone Encounter - Karen Long - 08/20/2024 9:00 AM EST Spoke with Lilly on 08/20 regarding testing and medication instructions. The medication(s) listed below will need to be stopped prior to Autonomic testing. Patient was instructed to contact their prescribing physician to ensure it is safe to discontinue the medication(s) and to receive the proper tapering instructions, if necessary. Patient instructed to not discontinueany medications without consulting their prescribing physician. [facility] recommended the following medication discontinuation lengths andinstructions: Trazodone, Trintellix, for 48 hours prior to [...] the test, if necessary documented in this encounterSouthwest [facility] Center11-26-2024 Note* Addendum Note - Emerita Garcia - 07/31/2024 3:28 PM ESTAddended by: EMERITA GARCIA on: 07/31/2024 03:28 PM Modules accepted: Orders [facility]11-26-2024 Miscellaneous Notes* Addendum Note - Emerita Garcia - 07/31/2024 3:28 PM ESTAddended by: EMERITA GARCIA on: 07/31/2024 03:28 PM Modules accepted: Orders documented in this encounterSouthwest [facility] Health Center11-20-2024 History of Present illness Narrative* PERCY Hennessy - 07/25/2024 2:40 PM EST Subjective Lilly Beckham is a 38 year old female Chief Complaint Patient presents with Migraine Past Medical History: Diagnosis Date Anxiety Asthma (CMS/HCC) Bipolar 1 disorder (CMS/HCC) Borderline personality disorder in adult (CMS/HCC) Class 2 obesity COPD (chronic obstructive pulmonary disease) (CMS/HCC) Depression, controlled (CMS/HCC) Eating disorder (CMS/HCC) GERD (gastroesophageal reflux disease) Insomnia Post-traumatic stress ([facility]/HCC) Past Surgical History: Procedure Laterality Date APPENDECTOMY [...] Crossed adductor present. Positive finger flexors. Coordination Bqokok-ek-bxsn, rapid alternating movements and yxmu-ta-hnug normal bilaterally without dysmetria. Heart: Regular rate [...] intracranial process such as stroke. She had abrain MRI that revealed nonspecific white matter changes. [...] C3-C4. At C5-C6 there was a focal centraldisc protrusion contributing to mild spinal canal narrowing and no significant neural foraminal narrowing. At C6-C7 there was broad based disc bulge without joint spurring and facet hypertrophy contributing to mild bilateral neural foraminal narrowing and mild spinal canal narrowing. Thoracic spine MRI with and without contrast 03/01/2024: revealed mild degenerative changes noted atT7-T8, T8-T9, and T11-T12. No cord compression or [...] side effects from medications. documented in this encounterLake Regional Health [id number] NoteHNO ID: [id number] Author: GRANT FARLEY, PhD Service: ? Author Type: Psychologist Type: Progress Notes Filed: 03/12/2024 11:13 Note Text: [facility] Receipt of Outside Records Lilly Beckham [id number] 03/12/2024 On IPW completed 02/23/24, pt endorsed bipolar disorder diagnosis >2 years ago; 2-4 psychotropic medications. Received records via fax (dated 03/06/24) from [facility]. The following information was obtained via review [...] ; last hospitalization was in 2011 at [facility] in [place] Hx self-injurious behavior- I used to cut [...] to reconsideration. Grant Farley, Ph.D. Clinical Health PsychologistMckitrick Hospital10-14-2022 Evaluation note * Encounter Date Diagnosis Assessment Notes Treatment Notes Treatment Clinical Notes Jun, Dyspepsia (ICD-10 - R10.13) [facility] Other 08-30-2022 Evaluation note* Encounter Date Diagnosis Assessment Notes Treatment Notes Treatment Clinical Notes Apr, Sprain of other liga ment of left knee, initial encounter (ICD-10 - S83.8X2A) [facility], patient approved for cortisone injections today. Risks and benefits discussed in detail with patient. Patient voiced understanding and agreed to proceed with treatment plan. We performed a 1/1ccmarcaine / kenalog cortisone injection into the knee joint under sterile technique. Patient tolerated the injection well without adverse reaction. Patient to continue off work at this time. [facility] Other 08-22-2022 Evaluation note* Encounter Date Diagnosis Assessment Notes Treatment Notes Treatment Clinical Notes Apr, Sprain of other liga ment of left knee, initial encounter (ICD-10 - S83.8X2A) MRI reviewed with patient as no surgical injuries. Advised based on exam and MRI, may have subluxedher patella at the time of the injury. Progress weight bearing as tolerated. Instructed on progression of motion and strengthening exercises. We will order formal physical therapy through [facility], as well as cortisone injection to decrease pain/inflammation. Patient to continue off work at this time. [facility] Other 08-12-2022 NoteOPERATIVE NOTE OPERATION DATE: 04/16/2022 PROCEDURE: Melina endometrial ablation with diagnostic laparoscopy. PREOPERATIVE DIAGNOSIS: Menorrhagia, dyspareunia. POSTOPERATIVE DIAGNOSIS: Menorrhagia, dyspareunia. ANESTHESIA: General. SURGEON: Charles Marrero D.O. FISHING TOOL OPERATOR: ANDIE Jason URINE OUTPUT: Yellow and clear. [...] to Recovery Room in stable condition. :[facility] [id number] Evaluation note* Encounter Date Diagnosis Assessment Notes Treatment Notes Treatment Clinical Notes Apr, Sprain of other liga ment of left knee, initial encounter (ICD-10 - S83.8X2A) [facility] Other 06-27-2022 Evaluation note* Encounter Date Diagnosis Assessment Notes Treatment Notes Treatment Clinical Notes Feb, Sprain of other liga ment of left knee, initial encounter (ICD-10 - [...] MRI. Patient is to be off work [facility] [employer] Other Chief complaint+Reason for visit Narrative* Chief Complaint Self-[place] Reason for Visit Dietary surveillance and counseling Obesity, Class II, BMI 35-39.9 PCOS (polycystic ovarian syndrome) [facility] Work Phone: Chief complaint+Reason for visit Narrative* Chief Complaint Self-[place] r20.2 r29.2Reason for VisitDietary surveillance and counseling Obesity, Class II, BMI 35-39.9 PCOS (polycystic ovarian syndrome) [facility] Work Phone: Evaluation + Plan note No data available for this section [facility]Evaluation noteNo assessment information available [facility] Work Phone: Evaluation noteNo InformationNortBelmont Behavioral Hospital [employer] Other Evaluation note* Diagnosis Onset Date Resolution Status Dietary surveillance and counseling acuteObesity, Class II, BMI 35-39.9acutePCOS (polycystic ovarian syndrome)acute [facility] Work Phone: Evaluation note* Diagnosis Migraine without aura and without status migrainosus, not intractable (CMS/HCC)- Primary Paresthesia Disturbance of skin sensation Hyper reflexia Abnormal reflex Vision changes Muscle cramps documented in this encounter [facility] HealthcareEvaluation note* Diagnosis Paresthesia- Primary Disturbance of skin sensation documented [facility] this encounter [facility]* Diagnosis Paresthesia- Primary Disturbance of skin sensation documented in this encounter [facility]* Diagnosis Vision changes- Primary Hyper reflexia Abnormal reflex documented in this encounter [facility] HealthcareEvaluation note* Diagnosis Neuropathic pain- Primary Migraine without aura and without status migrainosus, not intractable (CMS/HCC) Paresthesia Disturbance of skin sensation Brain fog Gait instability Abnormality of gait Muscle cramps documented in this encounter [facility] HealthcareEvaluation note* Diagnosis Brain fog- Primary Neuropathic pain Migraine without aura and without status migrainosus, not intractable (CMS/HCC) Paresthesia Disturbance of skin sensation documented in this encounter [facility] HealthcareHistory general Narrative - Reported* Type Description Date Medical History endometriosis Surgical Historyc-sections [id number] HistoryapendectomySurgical Historyhernia removalHospitalization Historysee above [facility] Other Hospital Discharge instructions No data available for this section [facility] No data available for this section [facility] HospitalReason for referral (narrative)No reason for referral information availableWestern Reserve Hospital Work Phone: Summary Purpose Family History Relationship Condition Age at Onset Recorded Date/T [place] Not Specified Multiple sclerosis Unknown Cerebrovascular accident (CVA)UnknownObesityUnknownDiabetes mellitusUnknown fatherChronic obstructive pulmonary diseaseUnknownHypertensionUnknownHeart diseaseUnknownsisterObesityUnknownBipolar disorderUnknown Relationship Condition Age at Onset Recorded Date/T cor[place] mother Multiple sclerosis Unknown Cerebrovascular accident (CVA)UnknownObesityUnknownDiabetes mellitusUnknown fatherChronic obstructive pulmonary diseaseUnknownHypertensionUnknownHeart diseaseUnknownsisterObesityUnknownBipolar disorderUnknown Relationship Condition Age at Onset Recorded Date/T [place] mother Multiple sclerosis Unknown Cerebrovascular accident (CVA)UnknownObesityUnknownDiabetes mellitusUnknown fatherChronic obstructive pulmonary diseaseUnknownHypertensionUnknownHeart diseaseUnknownsisterObesityUnknownHistory of Con-en-Y gastric bypassUnknown Mental health problemUnknownsonAutistic disorderUnknown Advance Directives TypeDate RecordedPatient RepresentativeExplanationAdvance Directives and Living WillPower of National Secretary Advance Directive Response Recorded Date/ Time Advance Directives No April 12 022 1:36pm Advance Directive Response Recorded Date/ Time Advance Directives No January 22 4 9:36am Advance Directive Response Recorded Date/ Time Advance Directives No January 22 4 8:36am Advance Directive Response Recorded Date/ Time Advance Directives No April 11 025 12:07pm Discharge Instructions * Instructions* Princess Buchnaan, - 03/01/2020 Please take all medications as [...] be sent through Care Everywhere. * Bronchitis (Ukrainian) documented in this encounter Assessments Diagnosis Bronchitis Bronchitis, not specified as acute or chronic Chief Complaint and Reason for Visit Chief Complaint s83.8x2a Dyspepsia Chief Complaint Admit Date MIGRAINES November 06, 2024 1:33 pm Chief Complaint Admit Date R93.0 R20.2 May 08, 2025 4:19pm Reason for Visit Admit Date Abnormal MRI of head April 15, 2025 3 :54pm Migraine without aura and wi thout status migrainosus, not intractable April 15, 2025 3:54pm Muscle cramps April 15, 2025 3: 54pm Neuropathic pain April 15, 2025 3: 54pm Paresthesias April 15, 2025 3: 54pm Chief Complaint Admit Date R93.0 R20.2 May 08, 2025 4:19pm sever pain left side, in [place], MR I May 09, 2025 2:06pm Reason for Visit Admit Date Abnormal MRI of head April 15, 2025 3 :54pm Migraine without aura and wi thout status migrainosus, not intractable April 15, 2025 3:54pm Muscle cramps April 15, 2025 3: 54pm Neuropathic pain April 15, 2025 3: 54pm Paresthesias April 15, 2025 3: 54pm Abnormal MRI of head May 09, 2025 2:06pm Migraine without aura and wi thout status migrainosus, not intractable May 09, 2025 2:06pm Muscle cramps May 09, 2025 2:06pm Neuropathic pain May 09, 2025 2:06pm Paresthesias May 09, 2025 2:06pm Chief Complaint Admit Date R93.0 R20.2 May 08, 2025 4:19pm sever pain left side, in [place] ED, MR I May 09, 2025 2:06pm Self-[place] (QDone) May 28 9:10am Reason for Visit Admit Date Abnormal MRI of head April 15, 2025 3 :54pm Migraine without aura and wi thout status migrainosus, not intractable April 15, 2025 3:54pm Muscle cramps April 15, 2025 3: 54pm Neuropathic pain April 15, 2025 3: 54pm Paresthesias April 15, 2025 3: 54pm Abnormal MRI of head May 09, 2025 2:06pm Atypical migraine May 09, 2025 2:06pm Migraine without aura and wi thout status migrainosus, not intractable May 09, 2025 2:06pm Muscle cramps May 09, 2025 2:06pm Neck pain May 09, 2025 2:06pm Neuropathic pain May 09, 2025 2:06pm Paresthesias May 09, 2025 2:06pm Abnormal weight gain May 28 9:10am Anxiety May 28, 2025 9:10am Asthma May 28, 2025 9:10am Bipolar disorder May 28, 2025 9:10am BMI 35.0-35.9,adult May 28, 2025 9:10am Depression May 28, 2025 9:10am Dietary surveillance and counseling May [facility] 2024 9:10am Elevated glucose level May 28, 9:10am Exercise counseling May 28, 2025 9:10am Fibromyalgia May 28, 2025 9:10am GERD (gastroesophageal reflux disease) S eptember 2024 9:10am History of kidney stones May 28, 2025 9:10am History of pancreatitis May 28, 2025 9:10am Hx of cholecystectomy May 28 9:10am Hx of hysterectomy May 28, 2025 9:10am Insomnia May 28, 2025 9:10am Migraine without aura and wi thout status migrainosus, not intractable May 28, 2025 9:10am Obesity, Class II, BMI 35-39.9 May 28, 2025 9:10am [facility]cystic ovarian [facility] 20[facility] 9:10am Personality disorder May 28 9:10am Prediabetes May 28, 2025 9:10am Additional Source Comments INFORMATION SOURCE (unrecogn ized section and content) DATE CREATED AUTHOR 03/27/2020 [facility] DATE CREATED AUTHOR AUTHOR'S ORGANIZ ATION 12/31/2022 [facility] DATE CREATED AUTHOR AUTHOR'S ORGANIZ ATION 01/20/2023 [facility] DATE CREATED AUTHOR AUTHOR'S ORGANIZ ATION 08/06/2024 [facility] DATE CREATED AUTHOR AUTHOR'S ORGANIZ ATION 08/21/2024 [facility] DATE CREATED AUTHOR AUTHOR'S ORGANIZ ATION 01/17/2025 [facility] DATE CREATED AUTHOR AUTHOR'S ORGANIZ ATION 05/10/2025 [facility] Reason for Visit (unrecogniz ed section and content) ReasonCommentsCoughpt reports lung painAbdominal PainHeadacheReasonComments MigraineReasonCommentsCALL - IMPORTANT AUTONOMIC TESTING INSTRUCTIONS FOR QSART ReasonCommentsMigraine Care Teams (unrecognized sec tion and content) Team Status: Inactive Member Role Status Dates NON STAFF Primary Care Provider Active Christopher Mendoza MDAttending ProviderActive Team Status: Inactive Member Role Status Dates Mukund Rodriguez MD Attending Provider Active NON STAFFPrimary Care ProviderActive Team Status: Active Member Role Status Dates NON STAFF Primary Care Provider Active Team Status: Active Member Role Status Dates Emmie Hill APRN Primary Care Provider Active Team Status: Inactive Member Role Status Dates Leo Bernardo DO Attending Provider Active St art: February 22, 2024 End: February 22, 2024Famazin SueNeal , APRNPrimary Care ProviderActiveStart: February 22, 2024 End: February 22, 2024 Team Status: Inactive Member Role Status Dates Saloni Piper PA-C Attending Provider Active Sta rt: March 01, 2024 End: March 01, 2024Emmie SueNeal , APRNPrimary Care ProviderActiveStart: March 01, 2024 End: March 01, 2024Team MemberRelationshipSpecialtyStart DateEnd Date Charles [place] [address] [facility]03/05/24Team MemberRelationshipSpecialtyStart DateEnd Date Saloni Piper PA [address] [place] [address] Physician LdlszgvrnQdgtvhjtl90/20/24 Louie Chavez MD [address] [place] [address] Referring LnyvjeddeIjgmmutnw00/20/24Team MemberRelationshipSpecialtyStart Date End Date Saloni Piper PA [address] [place] [address] Physician UvmmgkgjiHcegtnoec50/20/24 Louie Chavez MD [address] [place] [address] Referring HmjxzjtudSqfsmbpnw18/20/24Te MemberRelationshipSpecialtyStart Date End Date Saloni Piper PA [address] [place] [address] Physician RcyqbemvlGdodnamhz54/20/24 Louie Chavez MD [address] [place] [address] Referring AnyuaquulXdnmdjvtn59/20/24Te MemberRelationshipSpecialtyStart Date End Date Saloni Piper PA [address] [place] [address] Physician OpglpyrglRjqwarinr17/20/24 Louie Chavez MD [address] [place] [address] Referring ZhwmfhuihOtbkwbliu81/20/24Team MemberRelationshipSpecialtyStart Date End Date Saloni Piper PA [address] [place] [phone] Physician DqzfcpscjRfsnhzrfm54/20/24 Louie Chavez MD [address] [place] [phone] Referring VqtkdhvqoDeqgjbjnm17/20/24 Team Status: Inactive Member Role Status Dates Emmie Hill APRN Primary Care Provider Active Start: November 06, 2024 End: November 06ngPERCY Manrique-CAttending Provider, Referring Provider ActiveStart: November 06, 2024 End: November 06, 2024Team MemberRelationshipSpecialtyStart DateEnd Date Santo Ryan MD [address] [place] [address] PCP - GeneralFamily Medicine12/17/24 Saloni Piper PA [address] [place] [phone] Physician EjpkmfjniDgfnwpgwi30/20/24 Sherita Rodriguez PA [address] [place], [place] [id number] Physician AssistantNeurology12/17/24Team MemberRelationshipSpecialtyStart DateEnd Date Santo Ryan MD [address] [place], [place] [id number] [phone] PCP - GeneralFamily Medicine12/17/24 Saloni Piper PA [address] [place] [phone] Physician ZhgkypdqoZsfsiwcnm45/20/24 Sherita Rodriguez PA [address] [place] [address] Physician AssistantNeurology12/17/24 Team Status: Inactive Member Role Status Dates Emmie Hill APRN Primary Care Provider Active Start: April 15, 2025 End: April 15Cortez Miranda ProviderActiveStart: April 15, 2025 End: April 15, 2025 Team Status: Inactive Member Role Status Dates Emmie Hill APRN Primary Care Provider Active Start: May 08, 2025 End: May 08Cortez Miranda ProviderActiveStart: May 08, 2025 End: May 08, 2025 Team Status: Inactive Member Role Status Dates Emmie Hill APRN Primary Care Provider Active Start: May 09, 2025 End: May 09, 2025Nicrosy Julia , DOAttending ProviderActiveStart: May 09, 2025 End: May 09, 2025 Team Status: Active Member Role Status Dates Santo Ryan MD Primary Care Provider Active Team Status: Inactive Member Role Status Dates Radha Loja DNP Attending Provider Active S tart: May 28, 2025 End: May 28, 2025DoDarrius BarreraSaint John's Health System ProviderActiveStart: May 28, 2025 End: May 28, 2025 Goals (unrecognized section and content) Goals may be documented in a n alternate section Source Comments (unrecognize d section and content) In the event this informatio n is protected by the Federal Confidentiality of Alcohol and Drug Abuse Patient Records regulations: The Federal rules restrict any use of the information to criminally investigate or prosecute any alcohol or drug abuse patient.[facility] CenterIn the event this information is protected by the Federal Confidentiality of Alcohol and Drug Abuse Patient Records regulations: The Federal rules restrict any use of the information to criminally investigate or prosecute any alcohol or drug abuse patient.[facility] CenterIn the event this information is protected by the Federal Confidentiality of Alcohol and Drug Abuse Patient Records regulations: The Federal rules restrict any use of the information to criminally investigate or prosecute any alcohol or drug abuse patient.[facility] FOR RECORDS PERTAINING TO PATIENTS [...] BE BASED ON THE PRIMARY CLINICAL RECORDS. [facility] scroll kit [facility]. provides no warranty or guarantee of the accuracy or completeness of information in this document.
--- OUTSIDE RECORDS SUMMARY | 2025-06-25 09:25 | XMS_ITS | Clinical Summary ---
Author Organization [facility] Address [address] [place] [address] Care Team Providers Care Fixed Income Analyst Name Role Phone Saloni Rubin Unavailable Sherita Rodriguez Unavailable Santo Ryan MD Primary Care Provider [phone] Saloni Rubin Unavailable Allergies Active AllergyReactionsCriticalityNoted LyvzCqrtcavoJebnembq67/25/2024 Medications MedicationSigDispense QuantityRefillsLast FilledStart DateEnd DateStatus ondansetron (Zofran) 4 MG tablet Take 4 mg by mouth Daily 1 tabletActive famotidine (Pepcid) 20 MG tablet Take 20 mg by mouth Daily as needed for heartburn 1 tabletActive albuterol (2.5 MG/3ML) 0.083% nebulizer solution Take 3 mL by nebulization every 6 (six) hours if needed for wheezingActive albuterol HFA 90 mcg/act inhaler Inhale 1 puff every 4 (four) hours if needed for wheezingActive hydrOXYzine pamoate (Vistaril) 50 MG capsule Take 50 mg by mouth in the morning and 50 mg before bedtime.Active Symbicort 160-4.5 MCG/ACT inhaler Inhale 2 puffs Daily11/01/2023ctive Vraylar 1.5 MG capsule Take 1 capsule by mouth Daily12/20/2023ctive traZODone (Desyrel) 100 MG tablet Take 100 mg by mouth at bedtimeActive Trintellix 5 MG tablet Take 1 tablet by mouth in the morning.12/21/2023ctive diazePAM (Valium) 2 MG tablet Indications:ClaustrophobiaTake 30 minutes prior to MRI. Do not drive when taking this medication. 1 tablet 01/09/2024ctive Additional Information Patient not taking.Reported on 01/16/2025 rizatriptan (Maxalt) 10 MG tablet Indications:Migraine without aura and without status migrainosus, not intractableTake 1 tablet (10 mg) by mouth 1 (one) time if needed for migraine (may repeat x1) May repeat in 2 hours if unresolved. Do not exceed 30 mg in 24 hours. 9 tablet ctive Additional Information Patient not taking.Reported on 01/16/2025 magnesium oxide (Mag-Ox) 400 (240 Mg) MG tablet Indications:Migraine without aura and without status migrainosus, not intractableTAKE 1 TABLET BY MOUTH EVERY DAY AT BEDTIME 90 tablet ctive Additional Information Patient not taking.Reported on 01/16/2025 Atogepant (Qulipta) 60 MG tablet Indications:Migraine without aura and without status migrainosus, not intractableTake 60 mg by mouth Daily 30 tablet 5Active pregabalin (Lyrica) 50 MG capsule Indications:Neuropathic painTake 1 capsule (50 mg) by mouth in the morning and 1 capsule (50 mg) before bedtime. Due 01/30/25. 60 capsule 5Active OXcarbazepine (Trileptal) 300 MG tablet Indications:Migraine without aura and without status migrainosus, not intractable,ParesthesiaTAKE 2 TABLETS (600 MG) BY MOUTH AT BEDTIME 180 tablet 5Active divalproex (Depakote) 250 MG EC tablet Indications:Migraine without aura and without status migrainosus, not intractableTake 1 tablet (250 mg) by mouth in the morning and 1 tablet (250 mg) before bedtime. Do not crush, chew, or split. 60 tablet 5Active Active Problems ProblemNoted DateDiagnosed DateMigraine without status migrainosus, not cxythhznxjl67/25/0438Taiqbrkibyub92/25/2024 Family History Medical HistoryRelationNameCommentsDepressionFatherHeart diseaseFatherMigraines FatherDepressionMotherMigrainesMotherSeizuresMotherRelationNameStatusComments FatherAliveMaternal GrandfatherDeceasedMaternal GrandmotherDeceasedMotherAlive Paternal GrandfatherDeceasedPaternal GrandmotherDeceased Social History Tobacco UseTypesPacks/DayYears UsedDateSmoking Tobacco: Every DayCigarettes0.5 27.8Started: 09/05/1997Smokeless Tobacco: Never Tobacco Cessation:Ready to Q uit: Not Asked; Counseling Given: Not Answered Comments:Smokes 5 mins after waking up Alcohol UseStandard Drinks/WeekCommentsNever0 (1 standard drink = 0.6 oz pure alcohol)caffeine: dailyCommentsUnknownSex and Gender InformationValue Date RecordedSex Assigned at BirthNot on fileLegal IqvLeuzty94/15/2023 11:47 PM EDTGender IdentityNot on fileSexual OrientationNot on file Last Filed Vital Signs Vital SignReadingTime TakenCommentsBlood Ukrqigwi333/8005 1:46 PM EDT Pmloy8461 2:32 PM QXWWkwmgfskncf73.6 ??C (97.8 ??F)10/24/2023 8:29 AM ESTRespiratory Dxwe015609/24/2023 2:32 PM ESTOxygen Yubavwikot69%07/25/2024 2:32 PM ESTInhaled Oxygen Concentration--Mfzboy36.8 kg (209 lb)01/16/2025 1:46 PM EDT Yvlljm965.6 cm (5' 4 )01/16/2025 1:46 PM EDTBody Mass Index35.8701/16/2025 1:46 PM EDT Plan of Treatment Health MaintenanceDue DateLast DoneCommentsPap Smear2005Cervical Cancer Sboeliwpe19/11/2015HPV/Mhuiug1910/16/20145030Gchaypzas81/11/2025Influenza Vaccine (#1) 2025 Insurance Care Teams Team MemberRelationshipSpecialtyStart DateEnd Date Santo Ryan MD [address] [facility] [place] [address] [facility] - [facility] Saloni Rubin PA PCP - [facility]12/04/2510 Saloni Rubin PA Physician RnfdkfogwTywvnnldq24/20/24 Sherita Rodriguez PA [address] [facility] [place] [address] Physician AssistantNeurology12/17/24
--- OUTSIDE RECORDS SUMMARY | 2025-06-25 09:25 | XMS_ITS | Encounter Summary ---
Author Organization [facility] Address [facility] [place] [address] Care Team Providers Care Supervisor Denture Department Name Role Phone Sherita Rodriguez PA-C Unavailable Source Comments In the event this information is protected by the Federal Confidentiality of Alcohol and Drug AbusePatient Records regulations: The Federal rules restrict any use of the information to criminally investigate or prosecute any alcohol or drug abuse patient.[facility] Reason for Referral * Consult, Test, Treat (Routine) - Pending ReviewSpecialtyDiagnoses / Procedures Referred By ContactReferred To ContactNeurology Diagnoses Ataxia Procedures OFFICE/OUTPATIENT [facility] 60 MINUTES Sherita Rodriguez PA-C [address] [place] [address] Phone: tel: fax: Referral IDStatusReasonStart DateExpiration DateVisits RequestedVisits [id number] Review PCP Requested Referral Encounter Details DateTypeDepartmentCare Team (Latest Contact Info)Waqleixfkhb22/20/2025Transcribe Orders Referring Physician [facility] [place] [address] Sherita Rodriguez PA-C [address] [place] [address] Ataxia (Primary Dx) Social History Tobacco UseTypesPacks/DayYears UsedDateSmoking Tobacco: Never AssessedArea Deprivation IndexAnswerDate RecordedNational Score (1-100), lower number is lower sfga277908/30/2024State Score (1-10), lower number is lower atpk64710/31/2023 Data from: https://www.neighborhoodatlas.medicine.[facility].edu/. Last address used for ldubvdzcqu[address]CommentsUnknownSex and Gender InformationValueDate RecordedSex Assigned at BirthNot on fileLegal SexFemale 03/07/2024 3:02 PM EDTGender IdentityNot on fileSexual OrientationNot on file documented as of this encounter Plan of Treatment NameTypePriorityAssociated DiagnosesOrder ScheduleCONSULT TO NEUROLOGYReferral Routine Ataxia 1 Occurrences starting 06/24/2025 until 06/24/2026documented as of this encounter Visit Diagnoses Diagnosis Ataxia- Primary Lack of coordination documented in this encounter Care Teams Team MemberRelationshipSpecialtyStart DateEnd Date Sherita Rodriguez PA-C [address] [place] [id number] SduwzauhsLtburnekt36/20/25documented as of this encounter
--- NOTE | 2025-06-25 09:26 | MR_ITS ---
[address] [address] Patient Name: COY SAMUEL MRN: [facility]:[id number] date: 1985 Sex: F Assigned Patient Location: MRI Current Patient Location: MRI Accession/Order Number: [id number] Exam Date: 06/25/2025 09:45 Report Date: 06/25/2025 17:24 At the request of: SUNITA GREER Procedure: MR lumbar spine wo con MRI lumbar spine performed without contrast INDICATION: Paresthesias, radicular pain, incontinence, fall COMPARISON: CT thoracic spine 04/22/2025 FINDINGS: There is mild straightening of the normal lumbar lordosis. 6 lumbar type vertebral bodies noted with transitional anatomy at S1 with partial lumbarization. Rudimentary disc at S1-S2. Otherwise lumbar vertebral heights preserved. Mild disc space narrowing L4-S1. Tiny Schmorl's node deformities T11-L2. 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 The conus medullaris terminates normally at the inferior plate of L2. Paraspinal soft tissues are unremarkable. T11-T12: Only visualized on the sagittal images. There is a left subarticular to foraminal zone protrusion. Minimal left foraminal narrowing. Canal and right foramen patent. L1-L2: Schmorl's node deformities. Minimal disc desiccation. Facet arthropathy. Canal and neural foramina patent. L1-L2: Facet arthropathy. No significant disease is canal or neural from narrowing identified. L2-L3: Facet arthropathy. No significant disease central canal or neural from narrowing identified. L3-4: Mild facet arthropathy. Otherwise no significant disease central canal or neural from narrowing identified. L4-5: There is a broad-based disc bulge with superimposed left foraminal protrusion. This causes moderate left neural foraminal narrowing. Canal is patent. Mild facet arthropathy. Right foramen is grossly patent. L5-S1: Circumferential disc bulge with superimposed central protrusion. Facet arthropathy. Mild canal narrowing. Facet arthropathy. Minimal foraminal narrowing. MR/MR lumbar spine wo con IMPRESSION: Multilevel degenerative changes notably from L4 through S1 with moderate left neural foraminal narrowing at L4-5 due to a foraminal zone protrusion. Transitional anatomy identified with lumbarization of S1. Impression dictated by: Evan Hanies M.D. 06/25/2025 5:24 PM Dictation Location: [place] [address] Electronically authenticated by: [id number] Y Date: 06/25/2025 17:24
== END 2025-06-25 09:22 | disposition home or self-care (01) ==
LOC: MRI 09:21
PROVIDERS: PCP Nurse Practitioner; Visit Provider Physician Assistant Medical
DX: R20.2 Paresthesia of skin (principal); M51.369 Other intervertebral disc degeneration, lumbar region without mention of lumbar back pain or lower extremity pain
CPT/HCPCS: 72148